=== PATIENT | male | born 1940 | race Caucasian/White ===

== ENCOUNTER → 2016-04-24 | Outpatient (CLI) | payer OTHER, MEDICARE | END | disposition home or self-care (01) | LOC: MW.MRI 11:45 | PROVIDERS: ATTEND Orthopaedic Surgery | DX: M17.11 Unilateral primary osteoarthritis, right knee (principal) | CPT/HCPCS: 73721-RT ==

== ENCOUNTER → 2016-05-08 | Outpatient (CLI) | payer OTHER, MEDICARE | LOC: MW.CHIM 16:14 | PROVIDERS: ATTEND Internal Medicine | DX: E11.9 Type 2 diabetes mellitus without complications (principal) | CPT/HCPCS: 36415; 83036 ==

== ENCOUNTER 2016-05-14 10:00 | Inpatient (IN) | payer OTHER, MEDICARE ==
[2016-07-09] MEDS ORDERED: Ketorolac 15 MG/ML SDV IVPUSH SCH ×2 (06:00→15:00)
[2016-07-09] MEDS ORDERED: Scopolamine 1.5 MG Transdermal Patch TRDERM SCH (06:00)
[2016-07-09] MEDS ORDERED: Famotidine 20 MG/2 ML SDV IVPUSH SCH (06:00)
[2016-07-09] MEDS ORDERED: oxyCODONE ER 10 MG TAB.ER PO SCH (06:00)
[2016-07-09] MEDS ORDERED: Lactated Ringers 1,000 ML IV SCH (06:00)
[2016-07-09] MEDS ORDERED: Acetaminophen 1,000 MG in Premix Bag 1 BAG IV SCH (06:00)
[2016-07-09] MEDS ORDERED: Lidocaine 1% 50 ML MDV ONE (06:48)
--- NOTE | 2016-07-09 06:59 | PCM.PREANE ---
Preanesthetic Assessment - Anesthesia/Transfusion/Family Hx Anesthesia History: Prior Anesthesia Without Reaction Family History of Anesthesia Reaction: No Transfusion History: No Prior Transfusion(s) Intubation History: Unknown - Review of Systems General: No Symptoms Pulmonary: No Symptoms Cardiovascular: No Symptoms Gastrointestinal: No symptoms Neurological: No Symptoms Other: Reports: None - Physical Assessment Height: 1.78 m Weight: 139.253 kg ASA Class: 3 Mental Status: Alert & Oriented x3 Airway Class: Mallampati = 3 Dentition: Reports: Dentures (upper), [place](s) (multiple lower) Thyro-Mental Finger Breadths: 2 Mouth Opening Finger Breadths: 3 ROM/Head Extension: Limited/Partial Lungs: Clear to auscultation, Normal respiratory effort Cardiovascular: Regular Rate, Regular Rhythm - Allergies Allergies/Adverse Reactions: Allergies Allergy/AdvReac Type Severity Reaction Status Date / Time morphine Allergy Itching Verified 12/09/14 14:08 - Blood Blood Available: No - Anesthesia Plan Pre-Op Medication Ordered: None - Acknowledgements Anesthesia Type Planned: Spinal (general anesthesia back-up) Pt an Appropriate Candidate for the Planned Anesthesia: Yes Alternatives and Risks of Anesthesia Discussed w Pt/Guardian: Yes Pt/Guardian Understands and Agrees with Anesthesia Plan: Yes PreAnesthesia Questionnaire HEENT History: Reports: Hard of hearing, Impaired vision Other HEENT History: wears glasses, top denture, annalisa hearing aids Cardiovascular History: Reports: Afib, High cholesterol, Hypertension Gastrointestinal History: Reports: Other (see below) Other Gastrointestinal History: occasional heartburn Genitourinary History: Reports: Renal calculus Other Genitourinary History: hx kidney stones Musculoskeletal History: Reports: Arthritis Endocrine/Metabolic History: Reports: Diabetes, type II, Obesity/BMI 30+ (BMI 44 ) - Past Surgical History Head Surgeries/Procedures: Reports: None HEENT Surgical History: Reports: Tonsillectomy GI Surgical History: Reports: Appendectomy Musculoskeletal Surgical History: Reports: Arthroscopic knee - SUBSTANCE USE Smoking Status *Q: Former Smoker (quit '02) Tobacco Use Within Last Twelve Months: No Recreational Drug Use History: No - HOME MEDS Home Medications: Home Meds Aspirin [[place] Aspirin] 81 mg PO DAILY 07/05/16 [History] Diclofenac Sodium [Voltaren] 75 mg PO ASDIRECTED 07/05/16 [History] Furosemide 80 mg PO BID 07/05/16 [History] Glimepiride [Amaryl] 2 mg PO DAILY 07/05/16 [History] Insulin Detemir [Levemir Flextouch] 40 units SUBCUT BEDTIME 07/05/16 [History] Insulin Lispro [Humalog Kwikpen U-100] 1 injection SUBCUT ASDIRECTED PRN [History] Losartan Potassium 100 mg PO DAILY 07/05/16 [History] Oxybutynin Chloride 5 mg PO DAILY 07/05/16 [History] Potassium Chloride 20 meq PO DAILY 07/05/16 [History] metFORMIN HCl [Metformin HCl] 1,000 mg PO BID 07/05/16 [History] traMADol HCl [Tramadol HCl] 50 mg PO ASDIRECTED PRN 07/05/16 [History] - CURRENT (IN HOUSE) MEDS Current Meds: Current Medications Famotidine (Pepcid) 40 mg IVPUSH ONARRIVE BLANCA Stop: 07/09/16 12:01 Acetaminophen 1,000 mg/ Premix 100 mls @ 400 mls/hr IV ONARRIVE BLANCA Stop: 07/09/16 12:01 Ropivacaine 49.25 ml/Ketorolac Tromethamine 30 mg/Epinephrine HCl 0.5 mg/ Clonidine HCl 80 mcg/ Sodium Chloride 100 mls @ 50 mls/min INJECT ASDIRECTED BLANCA Stop: 07/09/16 12:01 Lactated Ringer's (Ringers, Lactated) 1,000 mls @ 100 mls/hr IV ASDIRECTED [facility] Tranexamic Acid 4,000 mg/ (Sodium Chloride) 140 mls @ 600 mls/hr IV ASDIRECTED BLANCA Stop: 07/09/16 12:01 Cefazolin Sodium/Dextrose 2 gm (/ Premix) 50 mls @ 100 mls/hr IV ONCALL BLANCA Stop: 07/09/16 12:01 Ketorolac Tromethamine (Toradol) 15 mg IVPUSH ONARRIVE BLANCA Oxycodone HCl (Oxycontin) 10 mg PO ONARRIVE BLANCA Stop: 07/09/16 12:01 Scopolamine (Transderm-Scop) 1.5 mg TRDERM ONARRIVE [facility] Discontinued Medications Lidocaine HCl (Xylocaine 1%) Confirm Administered Dose 50 ml .ROUTE .STK-MED ONE Stop: 07/09/16 06:49
[2016-07-09] MEDS ORDERED: Tranexamic Acid 4,000 MG in Sodium Chloride 0.9% 100 ML IV SCH (07:00)
[2016-07-09] MEDS ORDERED: Ropivacaine 49.25 ML, Ketorolac 30 MG, EPINEPHrine 0.5 MG, cloNIDine 80 MCG in Sodium C... INJECT SCH (07:00)
[2016-07-09] MEDS ORDERED: Propofol 200 MG/20 ML SDV ONE ×2 (07:14→07:18)
[2016-07-09] MEDS ORDERED: Midazolam 1 MG/ML 2 ML SDV ONE (07:14)
[2016-07-09] MEDS ORDERED: Lidocaine 2% 5 ML SDV ONE ×2 (07:14→07:18)
[2016-07-09] MEDS ORDERED: fentaNYL 100 MCG/2 ML SDV ONE ×2 (07:14→07:15)
[2016-07-09] MEDS ORDERED: Ondansetron 4 MG/2 ML SDV ONE (07:15)
[2016-07-09] MEDS ORDERED: ePHEDrine 50 MG/ML SDV ONE (07:15)
[2016-07-09] MEDS ORDERED: Dextrose 5% in Water 500 ML IV SCH (07:15)
[2016-07-09] MEDS ORDERED: Succinylcholine/Normal Saline 200 MG/10 ML Syringe ONE (07:16)
[2016-07-09] MEDS ORDERED: ceFAZolin 2 GM in Premix Bag 1 BAG IV SCH (08:00)
[2016-07-09] MEDS ORDERED: Phenylephrine 1% 10 MG/ML SDV ONE (08:52)
[2016-07-09] MEDS ORDERED: Bisacodyl 10 MG Supp RECTAL PRN (10:04)
[2016-07-09] MEDS ORDERED: Aluminum Hydroxide/Magnesium Hydroxide/Simethicone Susp 30 ML Cup PO PRN (10:04)
[2016-07-09] MEDS ORDERED: Ondansetron 4 MG/2 ML SDV IV PRN (10:04)
[2016-07-09] MEDS ORDERED: diphenhydrAMINE 25 MG Cap PO PRN (10:04)
--- NOTE | 2016-07-09 10:31 | PCM.OPNOTE ---
- General Post-Op/Procedure Note Date of Surgery/Procedure: 07/09/16 Operative Procedure(s): R TKA Post-Op Diagnosis: DJD R knee Anesthesia Technique: General ET tube, Spinal Primary Surgeon: Angelique Rankin Rest Room Matron: Arlin Pierre Rest Room Matron: Frida Hart EBL in mLs: 50 Condition: Good Free Text/Narrative:: tt=50 min #[id number]
--- NOTE | 2016-07-09 10:48 | PCM.POSTAN ---
POST ANESTHESIA ASSESSMENT - MENTAL STATUS Mental Status: alert, oriented - RESPIRATORY Respiratory Status: respiratory rate WNL, airway patent, O2 saturation stable - CARDIOVASCULAR CV Status: pulse rate WNL, blood pressure stable - GASTROINTESTINAL GI Status: no symptoms - POST OP HYDRATION Hydration Status: adequate & stable
[2016-07-09] MEDS: fentaNYL 100 MCG/2 ML SDV IVPUSH PRN ×2 (11:12→11:18)
--- NOTE | 2016-07-09 12:54 | CR ---
EXAMINATION: Right knee HISTORY: TKA COMPARISON: 04/24/2016 TECHNIQUE: 2 views FINDINGS/IMPRESSION: Right total knee hardware is demonstrated in good position and alignment. Posto perative soft tissue changes noted.
[2016-07-09] MEDS: Acetaminophen 500 MG Tab PO SCH ×2 (13:50→20:37)
--- NOTE | 2016-07-09 14:25 | PCM.CONS ---
H&P History of Present Illness - General Date of Service: 07/09/16 Admit Problem/Dx: Admission Diagnosis/Problem Admission Diagnosis/Problem Replacement of total knee joint Source of Information: Patient, Old records History Limitations: Reports: No limitations - History of Present Illness Initial Comments - Free Text/Narative: This 75 year old male with pmh of HTN, bilateral lower leg edema, afib, obesity presented to the hospital for R TKA with Dr Rankin today. Patient is now post-operative, awake and alert in room. During interview, HR noted to be tachy 120-150s and then would lower to 100s. Patient is visible dyspneic, complains of some palpitations. Denies chest pain. Complains of R knee pain as well as L knee pain. He is alert and oriented. PCP, Dr Fulton. - Related Data Allergies/Adverse Reactions: Allergies Allergy/AdvReac Type Severity Reaction Status Date / Time morphine Allergy Itching Verified 12/09/14 14:08 Home Medications: Home Meds Aspirin [[place] Aspirin] 81 mg PO DAILY 07/05/16 [History] Diclofenac Sodium [Voltaren] 75 mg PO ASDIRECTED 07/05/16 [History] Furosemide 80 mg PO BID 07/05/16 [History] Glimepiride [Amaryl] 2 mg PO DAILY 07/05/16 [History] Insulin Detemir [Levemir Flextouch] 40 units SUBCUT BEDTIME 07/05/16 [History] Insulin Lispro [Humalog Kwikpen U-100] 1 injection SUBCUT ASDIRECTED PRN [History] Losartan Potassium 100 mg PO DAILY 07/05/16 [History] Potassium Chloride 20 meq PO DAILY 07/05/16 [History] metFORMIN HCl [Metformin HCl] 1,000 mg PO BID 07/05/16 [History] traMADol HCl [Tramadol HCl] 50 mg PO ASDIRECTED PRN 07/05/16 [History] Oxybutynin [Oxybutynin ER] 5 mg PO BEDTIME 07/09/16 [History] Past Medical History HEENT History: Reports: Hard of hearing, Impaired vision Other HEENT History: wears glasses, top denture, annalisa hearing aids Cardiovascular History: Reports: Afib, High cholesterol, Hypertension Gastrointestinal History: Reports: Other (see below) Other Gastrointestinal History: occasional heartburn Genitourinary History: Reports: Renal calculus Other Genitourinary History: hx kidney stones Musculoskeletal History: Reports: Arthritis Endocrine/Metabolic History: Reports: Diabetes, type II, Obesity/BMI 30+ - Past Surgical History Head Surgeries/Procedures: Reports: None HEENT Surgical History: Reports: Tonsillectomy GI Surgical History: Reports: Appendectomy Musculoskeletal Surgical History: Reports: Arthroscopic knee Social & Family History - Tobacco Use Smoking Status *Q: Former Smoker (quit '02) Month Tobacco Last Used: quit 2001 - Caffeine Use Caffeine Use: Reports: Coffee - Alcohol Use Alcohol Use History: No - Recreational Drug Use Recreational Drug Use: No H&P Review of Systems - Review of Systems: Review Of Systems: See Below General: Reports: no symptoms. Denies: fever, chills, malaise HEENT: Reports: no symptoms. Denies: sinus congestion, sore throat, vertigo Pulmonary: Reports: Shortness of Breath. Denies: Wheezing, Pleuritic Chest Pain , Cough, Sputum Cardiovascular: Reports: palpitations, edema (BLE). Denies: chest pain Gastrointestinal: Reports: No symptoms. Denies: Abdominal pain, Black stool, Bloody stool Genitourinary: Reports: no symptoms. Denies: dysuria, frequency, burning Musculoskeletal: Reports: leg pain (R and L knee pain) Skin: Reports: no symptoms Psychiatric: Reports: no symptoms Neurological: Reports: No Symptoms Hematologic/Lymphatic: Reports: no symptoms Immunologic: Reports: no symptoms Exam - Exam Exam: See Below - Vital Signs Vital Signs: Last Vital Signs Temp 97.5 F 07/09/16 10:12 Pulse 102 H 07/09/16 11:23 Resp 15 07/09/16 11:23 BP 159/83 H 07/09/16 11:23 Pulse Ox 92 L 07/09/16 11:23 Weight: 139.253 kg - Exam Quality Assessment: supplemental oxygen, urinary catheter, DVT prophylaxis General: alert, oriented, cooperative HEENT: Conjunctiva clear, EACs clear, EOMI, Hearing intact, Mucosa moist & pink , Nares patent, Posterior pharynx clear Neck: supple, trachea midline. No: JVD Lungs: Clear to auscultation, Normal respiratory effort Cardiovascular: regular rhythm, normal S1, normal S2, tachycardia. No: systolic murmur Abdomen: normal bowel sounds, soft. No: organomegaly, guarding, rigidity, rebound, tenderness Extremities: normal inspection, normal pulses, edema (+1 edema bilateral lower legs) Skin: incision (C/D/I dressing) Neuro Extensive - Mental Status: alert, oriented x3 Psychiatric: alert, normal affect, normal mood - Patient Data Lab Results last 24 hrs: Laboratory Results - last 24 hr 07/09/16 07/09/16 07/09/16 Range/Units 07:15 07:21 10:53 POC Glucose 132 H 152 H (60-110) mg/dL Blood Type O POSITIVE Antibody Screen NEGATIVE Result Diagrams: 07/09/16 14:28 07/09/16 14:28 Consult PN Assessment/Plan Procedures: Procedures ASSAY OF IRON (02/21/15) CHEST X-RAY 2VW FRONTAL&LATL (04/30/16) COMPLETE CBC AUTOMATED (12/07/14) COMPLETE CBC W/AUTO DIFF WBC (06/25/16) COMPREHEN METABOLIC PANEL (06/25/16) ELECTROCARDIOGRAM TRACING (04/30/16) GLYCOSYLATED HEMOGLOBIN TEST (06/08/16) LIPID PANEL (04/30/16) MEDICAL NUTRITION INDIV IN (01/20/15) MRI JNT OF LWR EXTRE W/O DYE (04/24/16) OFFICE/OUTPATIENT VISIT EST (01/17/15) OFFICE/OUTPATIENT VISIT NEW (12/09/14) PROTHROMBIN TIME (06/25/16) ROUTINE VENIPUNCTURE (06/25/16) THROMBOPLASTIN TIME PARTIAL (06/25/16) TTE W/DOPPLER COMPLETE (12/31/14) URINALYSIS AUTO W/SCOPE (06/25/16) X-RAY EXAM KNEE 4 OR MORE (03/29/16) (1) S/P total knee arthroplasty SNOMED Code(s): 8324748704047, 514760708, 7494692637924 Code(s): Z96.659 - PRESENCE OF UNSPECIFIED ARTIFICIAL KNEE JOINT Current Visit: Yes Qualifiers: Laterality: right Qualified Code(s): Z96.651 - Presence of right artificial knee joint (2) HTN (hypertension) SNOMED Code(s): 73300642 Code(s): I10 - ESSENTIAL (PRIMARY) HYPERTENSION Current Visit: Yes Qualifiers: Hypertension type: essential hypertension Qualified Code(s): I10 - Essential (primary) hypertension (3) A-fib SNOMED Code(s): 79506672 Code(s): I48.91 - UNSPECIFIED ATRIAL FIBRILLATION Current Visit: Yes (4) DM type 2 (diabetes mellitus, type 2) SNOMED Code(s): 74601351 Code(s): E11.9 - TYPE 2 DIABETES MELLITUS WITHOUT COMPLICATIONS Current Visit: Yes Qualifiers: Diabetes mellitus complication status: without complication Diabetes mellitus sap hana developer insulin use: with fci use Qualified Code(s): E11.9 - Type 2 diabetes mellitus without complications; Z79.4 - snf (current) use of insulin (5) Morbid obesity with BMI of 40.0-44.9, adult SNOMED Code(s): 498764291 Code(s): E66.01 - MORBID (SEVERE) OBESITY DUE TO EXCESS CALORIES; Z68.41 - BODY MASS INDEX (BMI) 40.0-44.9, ADULT Current Visit: Yes Problem List Initiated/Reviewed/Updated: Yes My Orders last 24 hours: My Active Orders 07/09/16 13:55 CBC WITH AUTO DIFF [HEME] Routine COMPREHENSIVE METABOLIC PN,CMP [CHEM] Routine MAGNESIUM [CHEM] Routine 07/09/16 14:06 EKG 12 Lead [EKG Documentation Completion] [RC] STAT 07/09/16 14:07 Telemetry Monitoring [Cardiac Monitoring] [RC] . DIRECTED 07/09/16 14:08 EKG 12 Lead [EKG Documentation Completion] [RC] STAT 07/09/16 14:17 Chest 1V Frontal [CR] Urgent 07/09/16 21:00 Furosemide [Lasix] 80 mg PO BID Insulin Detemir [Levemir] 40 unit SUBCUT BEDTIME Oxybutynin 5 mg PO BEDTIME 07/10/16 09:00 Losartan [Cozaar] 100 mg PO DAILY Potassium Chloride [Klor-Con M20] 20 meq PO DAILY Plan: This 75 year old male admitted with R TKA, hospitalist service consulted for medical management of DM, HTN, and Afib 1. S/P R TKA: Per Ortho. 2. HTN: Obtained BMP, K+ 5.4, BUN 25 and Cr 1.5. Mg 1.8. No peaked Ts on EKG. Baseline Cr 1.5. Continue Losartan and Lasix 80 mg BID. Did discontinue Toradol and Celebrex due to renal function and cardiac risk profile. 3. DM type 2: Hold oral agents, may restart upon discharge home. Will Continue Levemir. Novolog SSI with meals. A1c 7.4 preoperatively. 4. Afib: Tachycardia noted on assessment, EKG revealed ST prolonged OK, no change from pre-operative EKG. CXR revealed small L pleural effusion, will continue Lasix as stated above and stop IVFs. Will place telemetry to monitor. VTE prophylaxis: Per Ortho when deemed appropriate, ASA BID ordered per Ortho.
--- NOTE | 2016-07-09 14:52 | CR ---
EXAMINATION: Portable chest radiograph. HISTORY: Tachycardia. FINDINGS: The trachea is midline. The cardiomediastinal silhouette is within normal limits no focal consolidat ion. Possible trace left pleural effusion. No pneumothorax. Osseous structures appear unremarkable. IMPRESSION: Possible trace left pleural effusion.
[2016-07-09] MEDS: HYDROmorphone 2 MG/ML Syringe IVPUSH PRN (15:40)
[2016-07-09] MEDS: oxyCODONE 5 MG Tab PO PRN (16:57)
[2016-07-09] MEDS: ceFAZolin 2 GM in Premix Bag 1 BAG IV SCH ×2 (16:58→21:13)
[2016-07-09] MEDS: Insulin Aspart 100 Units/ML 3 ML Pen SUBCUT SCH (17:30)
--- NOTE | 2016-07-09 20:25 | OR ---
SURGEON: Angelique Rankin MD DATE OF PROCEDURE: 07/09/2016 PREOPERATIVE DIAGNOSIS: Degenerative joint disease, right knee, tricompartmental. POSTOPERATIVE DIAGNOSIS: Degenerative joint disease, right knee, tricompartmental. PROCEDURE: Right total knee arthroplasty using patient specific instrumentation. ASSISTANTS: Arlin Pierre PA-C and Frida Hart PA-C. ANESTHESIA: Spinal with general. ESTIMATED BLOOD LOSS: 50 mL. TOURNIQUET TIME: 50 minutes. COMPLICATIONS: None. DVT PROPHYLAXIS: PAS boot and PATI hose to the nonoperative leg. IMPLANTS USED: Danilo NexGen femoral component size G (LPS), tibial component size 7, 14 mm all- polyethylene articular surface, and 38 mm all-polyethylene patella. INTRAOPERATIVE FINDINGS: Showed severe tricompartmental degenerative changes with mild varus deformity. No significant synovitis was noted. 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 1 g of tranexamic acid was given at the start of the case. This was given IV. An additional gram was given IV upon deflation of the tourniquet. We did apply 1 g of tranexamic acid topically into the wound as the cement was allowed to harden. BRIEF HISTORY: [place] is a 75-year-old male, who has had complaint of progressive bilateral knee pain. He has tried conservative treatment, which has not been helpful. He states that his right is most symptomatic. Due to his lack of response to conservative treatment, I did recommend surgical intervention. The risks and goals of procedure were discussed with the patient and were documented preoperatively. He agreed to proceed. DESCRIPTION OF PROCEDURE: The patient was properly identified and brought to the operating room. The patient was transferred from the operating room cart and placed on the operating room table. Spinal anesthesia was administered by the anesthesia team. After adequate sedation was achieved, a well-padded tourniquet was applied to the lower extremity. A De La Cruz catheter was then placed. The lower extremity was then prepped in standard fashion using ChloraPrep solution. It was then sterilely draped. A time-out was performed to ensure correct site and procedure. Preoperative antibiotics were given. The surgical site had been marked preoperatively. An Esmarch was used to exsanguinate the lower extremity and the tourniquet was inflated. An incision was made centered over the anterior aspect of the knee. The subcutaneous tissues were dissected down to the level of the fascia. A medial parapatellar approach was made. A partial medial release was also performed. The knee was then brought into extension and a portion of the infrapatellar fat pad was excised. The knee was then brought into flexion. The femoral patient specific cutting block was placed. This fit anatomically. The pins were then placed. The 0 degree distal femoral cutting guide was placed over the distal femur pins. The femur was then resected using an oscillating saw. The pins were then removed and were placed into the previously placed distal drill holes in the femoral condyles. Both Monika's and the epicondylar axis were marked with electric cautery. The cutting block was then placed. This was pinned into position in a slightly lateral and externally rotated position. This was then secured. The resection guide was used to check to make sure that the anterior femoral cortex would not be notched. The anterior condylar cut was then made. No notching of the femur was noted. This was followed by the posterior condylar, posterior chamfer, and anterior chamfer cuts. The narrow reciprocating saw was then used to cut the base of the trochlear recess and score the edges. The finishing guide was then removed and the trochlear recess cuts and remaining bone cuts were finished. The notch cutting block was then placed into position and the notch cut was made without difficulty using the reciprocating saw. This was then removed. The notch block that had been cut along with a portion of the cruciate ligaments were also resected. We then turned our attention to the tibia. The posterior cruciate ligament retractor was used to bring the tibial surface anteriorly. The patient specific tibial block was then placed. This fit anatomically. It was pinned into position. The block was then removed. The 0 degree proximal tibia cutting guide was then placed over the guide pin. This was secured with a Wilber clamp. The resection depth was checked using the resection guide. A proximal tibia cut was then made using an oscillating saw. Care was taken to protect the patellar tendon. The proximal tibia bone was then removed. The remainder of the medial and lateral meniscus were also excised. Care was taken to protect the popliteus tendon. The proximal tibia was then sized. The remainder of the osteophytes along the proximal tibia were also resected. The distal femur was elevated to expose the posterior knee. The posterior capsule was stripped off of the distal femur using a curved osteotome. The posterior osteophytes were also excised. The posterior capsule, along with the medial and lateral gutters, were then injected with the standard, preoperatively prepared, mixture consisting of clonidine, epinephrine, morphine, ropivacaine, Toradol, and saline, unless any allergies were noted preoperatively. The femoral trial was then placed. This was followed by the tibial component with a size 10 trial polyethylene. The knee was brought into full extension. Stability to varus and valgus stress was checked in extension and in flexion. There appeared to be good range of motion and stability. The knee was then brought into full extension. The patella was everted. The patella was resected to a thickness of 15 millimeters. It was then sized. Once the appropriate size was determined, the patella was prepared by placing the patella button in a slightly superior and medial position. The patella button trial was then placed and the knee was again taken through a range of motion. There was excellent patellar tracking using the no-touch technique. Alignment was checked with a drop steve. The trial components were then removed. The knee was brought into full flexion and the tibia was prepared in a standard fashion placing the tibial plate in slight external rotation with the center of the prosthesis lined up with the medial aspect of the tibial tubercle. The wound was then copiously irrigated with Pulsavac solution to remove any bony debris. The bone ends were then suctioned dry. Cement was prepared in the usual fashion on the back table. The cement was then placed onto the proximal tibia and the tibial component was placed without difficulty. This was malleted into position. Excess cement was cleared. The femoral component was cemented in a similar manner. A trial polyethylene was then placed and the knee was brought into full extension. An axial load was applied. The patella button was then cemented into place and a patella clamp was placed to hold pressure. The cement was allowed to cure. After the cement had adequately hardened, the patella clamp was released. The knee was again taken through a range of motion. It was determined at this time the correct thickness of polyethylene. The trial polyethylene insert was then removed. The knee was brought into flexion and the tibial tray was suctioned dry. Any excess cement was cleared from the tibial and femoral components. The knee was then brought into approximately 45 degrees of flexion. The tourniquet was deflated. No excess bleeding was noted from the posterior aspect of the knee. The previously determined sized polyethylene insert was then placed and locked into position without difficulty. The knee was again taken through a range of motion with no change in stability, either in flexion or extension. The wound was again copiously irrigated with the Pulsavac solution. The fascia layer was closed with No. 1 Vicryl. The subcutaneous tissue was closed with 2-0 Vicryl and the skin was closed with a yesica. Xeroform gauze was placed over the wound and a bulky dressing was applied. The patient was then awakened from the anesthetic and transferred back to the operating cart. The patient was brought to recovery room in stable condition. All needle and sponge counts were correct. ALIZA / CESAR /[id number]
[2016-07-09] MEDS: Oxybutynin 5 MG Tab PO SCH (20:38)
[2016-07-09] MEDS: Docusate Sodium 100 MG Cap PO SCH (20:38)
[2016-07-09] MEDS: oxyCODONE ER 10 MG TAB.ER PO SCH (20:38)
[2016-07-09] MEDS ORDERED: Furosemide 80 MG Tab PO SCH (21:00)
[2016-07-09] MEDS: Insulin Detemir 100 Units/ML 3 ML Pen SUBCUT SCH (21:14)
[2016-07-10] MEDS ORDERED: ceFAZolin 2 GM in Premix Bag 1 BAG IV SCH (03:00)
[2016-07-10] MEDS: HYDROmorphone 2 MG/ML Syringe IVPUSH PRN ×2 (05:54→11:28)
[2016-07-10] MEDS: Acetaminophen 500 MG Tab PO SCH ×4 (05:59→20:10)
[2016-07-10] MEDS: Insulin Aspart 100 Units/ML 3 ML Pen SUBCUT SCH ×3 (06:30→16:47)
--- NOTE | 2016-07-10 07:55 | PCM.SURGPN ---
- General Info Date of Service: 07/10/16 Date of Surgery/Procedure: 07/09/16 POD#: 1 Functional Status: Reports: pain controlled, tolerating diet, ambulating, urinating - Review of Systems General: Reports: No Symptoms Pulmonary: Reports: no symptoms Cardiovascular: Reports: No Symptoms Gastrointestinal: Reports: No symptoms Genitourinary: Reports: no symptoms Musculoskeletal: Reports: leg pain, joint pain, joint swelling Neurological: Reports: No Symptoms Psychiatric: Reports: no symptoms - Patient Data Vitals - most recent: Last Vital Signs Temp 36.9 C 07/10/16 07:16 Pulse 61 07/10/16 07:16 Resp 20 07/10/16 07:16 BP 121/77 07/10/16 07:16 Pulse Ox 100 07/10/16 07:16 Weight - most recent: 139.253 kg I&O - last 24 hours: Intake & Output 07/09/16 07/10/16 07/10/16 22:59 06:59 14:59 Intake Total 1100 Output Total 200 Balance 900 Lab Results last 24 hrs: Laboratory Results - last 24 hr 07/09/16 07/09/16 07/09/16 Range/Units 07:15 07:21 10:53 WBC (4.0-11.0) K/uL RBC (4.50-5.90) M/uL Hgb (13.0-17.0) g/dL Hct (38.0-50.0) % MCV (80.0-98.0) fL MCH (27.0-32.0) pg MCHC (31.0-37.0) g/dL RDW Std Deviation (28.0-62.0) fl RDW Coeff of [place] (11.0-15.0) % Plt Count (150-400) K/uL MPV (7.40-12.00) fL Neut % (Auto) (48.0-80.0) % Lymph % (Auto) (16.0-40.0) % [place] % (Auto) (0.0-15.0) % Eos % (Auto) (0.0-7.0) % Baso % (Auto) (0.0-1.5) % Neut # (Auto) (1.4-5.7) K/uL Lymph # (Auto) (0.6-2.4) K/uL [place] # (Auto) (0.0-0.8) K/uL Eos # (Auto) (0.0-0.7) K/uL Baso # (Auto) (0.0-0.1) K/uL Nucleated RBC % /100WBC Nucleated RBCs # K/uL Sodium (136-146) mmol/L Potassium (3.5-5.1) mmol/L Chloride (98-110) mmol/L Carbon Dioxide (21-31) mmol/L BUN (6.0-23.0) mg/dL Creatinine (0.6-1.5) mg/dL Est Cr Clr Drug Dosing mL/min Estimated GFR (MDRD) ml/min Glucose (60-110) mg/dL POC Glucose 132 H 152 H (60-110) mg/dL Calcium (8.8-10.8) mg/dL Magnesium (1.5-2.3) mEq/L Total Bilirubin (0.1-1.5) mg/dL AST (5-40) IU/L ALT (8-54) IU/L Alkaline Phosphatase (40-150) Total Protein (6.0-8.0) g/dL Albumin (3.4-4.8) g/dL Globulin (2.0-3.5) g/dL Albumin/Globulin Ratio (1.3-2.8) Blood Type O POSITIVE Antibody Screen NEGATIVE 07/09/16 07/09/16 07/09/16 Range/Units 14:28 14:28 16:37 WBC 12.47 H (4.0-11.0) K/uL RBC 4.31 L (4.50-5.90) M/uL Hgb 12.6 L (13.0-17.0) g/dL Hct 41.1 (38.0-50.0) % MCV 95.4 (80.0-98.0) fL MCH 29.2 (27.0-32.0) pg MCHC 30.7 L (31.0-37.0) g/dL RDW Std Deviation 55.9 (28.0-62.0) fl RDW Coeff of [place] 16 H (11.0-15.0) % Plt Count 164 (150-400) K/uL MPV 9.80 (7.40-12.00) fL Neut % (Auto) 79.4 (48.0-80.0) % Lymph % (Auto) 11.5 L (16.0-40.0) % [place] % (Auto) 7.9 (0.0-15.0) % Eos % (Auto) 1.0 (0.0-7.0) % Baso % (Auto) 0.2 (0.0-1.5) % Neut # (Auto) 9.9 H (1.4-5.7) K/uL Lymph # (Auto) 1.4 (0.6-2.4) K/uL [place] # (Auto) 1.0 H (0.0-0.8) K/uL Eos # (Auto) 0.1 (0.0-0.7) K/uL Baso # (Auto) 0.0 (0.0-0.1) K/uL Nucleated RBC % 0.0 /100WBC Nucleated RBCs # 0 K/uL Sodium 142 (136-146) mmol/L Potassium 5.4 H (3.5-5.1) mmol/L Chloride 110 (98-110) mmol/L Carbon Dioxide 25 (21-31) mmol/L BUN 25 H (6.0-23.0) mg/dL Creatinine 1.5 (0.6-1.5) mg/dL Est Cr Clr Drug Dosing 43.26 mL/min Estimated GFR (MDRD) 45.5 ml/min Glucose 167 H (60-110) mg/dL POC Glucose 133 H (60-110) mg/dL Calcium 8.5 L (8.8-10.8) mg/dL Magnesium 1.8 (1.5-2.3) mEq/L Total Bilirubin 0.5 (0.1-1.5) mg/dL AST 16 (5-40) IU/L ALT 15 (8-54) IU/L Alkaline Phosphatase 69 (40-150) Total Protein 5.7 L (6.0-8.0) g/dL Albumin 3.2 L (3.4-4.8) g/dL Globulin 2.5 (2.0-3.5) g/dL Albumin/Globulin Ratio 1.3 (1.3-2.8) Blood Type Antibody Screen 07/09/16 07/10/1607/10/17 Range/Units 20:44 06:23 06:42 WBC (4.0-11.0) K/uL RBC (4.50-5.90) M/uL Hgb (13.0-17.0) g/dL Hct (38.0-50.0) % MCV (80.0-98.0) fL MCH (27.0-32.0) pg MCHC (31.0-37.0) g/dL RDW Std Deviation (28.0-62.0) fl RDW Coeff of [place] (11.0-15.0) % Plt Count (150-400) K/uL MPV (7.40-12.00) fL Neut % (Auto) (48.0-80.0) % Lymph % (Auto) (16.0-40.0) % [place] % (Auto) (0.0-15.0) % Eos % (Auto) (0.0-7.0) % Baso % (Auto) (0.0-1.5) % Neut # (Auto) (1.4-5.7) K/uL Lymph # (Auto) (0.6-2.4) K/uL [place] # (Auto) (0.0-0.8) K/uL Eos # (Auto) (0.0-0.7) K/uL Baso # (Auto) (0.0-0.1) K/uL Nucleated RBC % /100WBC Nucleated RBCs # K/uL Sodium 140 (136-146) mmol/L Potassium 5.6 H (3.5-5.1) mmol/L Chloride 106 (98-110) mmol/L Carbon Dioxide 24 (21-31) mmol/L BUN 29 H (6.0-23.0) mg/dL Creatinine 1.9 H (0.6-1.5) mg/dL Est Cr Clr Drug Dosing 34.24 mL/min Estimated GFR (MDRD) 34.6 ml/min Glucose 151 H (60-110) mg/dL POC Glucose 132 H 135 H (60-110) mg/dL Calcium 8.2 L (8.8-10.8) mg/dL Magnesium 2.0 (1.5-2.3) mEq/L Total Bilirubin (0.1-1.5) mg/dL AST (5-40) IU/L ALT (8-54) IU/L Alkaline Phosphatase (40-150) Total Protein (6.0-8.0) g/dL Albumin (3.4-4.8) g/dL Globulin (2.0-3.5) g/dL Albumin/Globulin Ratio (1.3-2.8) Blood Type Antibody Screen Med Orders - Current: Current Medications Acetaminophen (Tylenol Extra Strength) 1,000 mg PO Q6H [facility] Last Admin: 07/10/16 05:59 Dose: Not Given Al Hydroxide/Mg Hydroxide (Mag-Al Plus) 30 ml PO Q4H PRN PRN Reason: indigestion Aspirin (Aspirin) 325 mg PO BID [facility] Bisacodyl (Dulcolax) 10 mg RECTAL DAILY PRN PRN Reason: Constipation Diphenhydramine HCl (Benadryl) 25 - 50 mg PO Q6H PRN PRN Reason: Itching Docusate Sodium (Colace) 100 mg PO BID [facility] Last Admin: 07/09/16 20:38 Dose: 100 mg Furosemide (Lasix) 80 mg PO BID [facility] Last Admin: 07/09/16 20:38 Dose: 80 mg Hydromorphone HCl (Dilaudid) 0.5 - 1 mg IVPUSH Q3H PRN PRN Reason: Pain Last Admin: 07/10/16 05:54 Dose: 1 mg Dextrose/Water (Dextrose 5% In Water) 500 mls @ 75 mls/hr IV ASDIRECTED [facility] Last Admin: 07/09/16 07:26 Dose: 75 mls/hr Insulin Aspart (Novolog) 0 unit SUBCUT TIDAC [facility] PRN Reason: Protocol Last Admin: 07/10/16 06:30 Dose: Not Given Insulin Detemir (Levemir) 40 unit SUBCUT BEDTIME [facility] Last Admin: 07/09/16 21:14 Dose: 40 units Losartan Potassium (Cozaar) 100 mg PO DAILY [facility] Ondansetron HCl (Zofran) 4 mg IV Q6HR PRN PRN Reason: NAUSEA/VOMITING Oxybutynin Chloride (Oxybutynin) 5 mg PO BEDTIME [facility] Last Admin: 07/09/16 20:38 Dose: 5 mg Oxycodone HCl (Oxycodone) 5 - 10 mg PO Q4H PRN PRN Reason: Pain Last Admin: 07/09/16 16:57 Dose: 10 mg Oxycodone HCl (Oxycontin) 10 mg PO Q12HR [facility] Last Admin: 07/09/16 20:38 Dose: 10 mg Scopolamine (Transderm-Scop) 1.5 mg TRDERM ONARRIVE [facility] Last Admin: 07/09/16 07:27 Dose: 1.5 mg Discontinued Medications Celecoxib (Celebrex) 200 mg PO DAILY [facility] Ephedrine Sulfate (Ephedrine Sulfate) Confirm Administered Dose 100 mg .ROUTE .STK-MED ONE Stop: 07/09/16 07:16 Famotidine (Pepcid) 40 mg IVPUSH ONARRIVE [facility] Stop: 07/09/16 12:01 Last Admin: 07/09/16 07:28 Dose: 40 mg Fentanyl (Sublimaze) Confirm Administered Dose 100 mcg .ROUTE .STK-MED ONE Stop: 07/09/16 07:15 Fentanyl (Sublimaze) Confirm Administered Dose 100 mcg .ROUTE .STK-MED ONE Stop: 07/09/16 07:16 Fentanyl (Sublimaze) 50 mcg IVPUSH Q5M PRN PRN Reason: Pain (severe 7-10) Stop: 07/10/16 09:42 Last Admin: 07/09/16 11:18 Dose: 50 mcg Acetaminophen 1,000 mg/ Premix 100 mls @ 400 mls/hr IV ONARRIVE [facility] Stop: 07/09/16 12:01 Ropivacaine 49.25 ml/Ketorolac Tromethamine 30 mg/Epinephrine HCl 0.5 mg/ Clonidine HCl 80 mcg/ Sodium Chloride 100 mls @ 50 mls/min INJECT ASDIRECTED [facility] Stop: 07/09/16 12:01 Lactated Ringer's (Ringers, Lactated) 1,000 mls @ 100 mls/hr IV ASDIRECTED [facility] Last Admin: 07/09/16 07:25 Dose: 100 mls/hr Tranexamic Acid 4,000 mg/ (Sodium Chloride) 140 mls @ 600 mls/hr IV ASDIRECTED [facility] Stop: 07/09/16 12:01 Cefazolin Sodium/Dextrose 2 gm (/ Premix) 50 mls @ 100 mls/hr IV ONCALL [facility] Stop: 07/09/16 12:01 Acetaminophen (Ofirmev) 1,000 mls @ 4,000 mls/hr IV ONARRIVE [facility] Stop: 07/09/16 12:01 Last Admin: 07/09/16 07:27 Dose: 4,000 mls/hr Cefazolin Sodium/Dextrose 2 gm (/ Premix) 50 mls @ 100 mls/hr IV Q8HR [facility] Stop: 07/09/16 22:29 Last Infusion: 07/09/16 17:28 Dose: Infused Cefazolin Sodium/Dextrose 2 gm (/ Premix) 50 mls @ 100 mls/hr IV Q8HR [facility] Stop: 07/10/16 03:29 Last Admin: 07/10/16 05:49 Dose: Not Given Ketorolac Tromethamine (Toradol) 15 mg IVPUSH ONARRIVE [facility] Last Admin: 07/09/16 07:28 Dose: 15 mg Ketorolac Tromethamine (Toradol) 15 mg IVPUSH Q6H [facility] Stop: 07/10/16 03:01 Lidocaine (Xylocaine-Mpf 2%) Confirm Administered Dose 10 ml .ROUTE .STK-MED ONE Stop: 07/09/16 07:15 Lidocaine (Xylocaine-Mpf 2%) Confirm Administered Dose 5 ml .ROUTE .STK-MED ONE Stop: 07/09/16 07:19 Lidocaine HCl (Xylocaine 1%) Confirm Administered Dose 50 ml .ROUTE .STK-MED ONE Stop: 07/09/16 06:49 Midazolam HCl (Versed 1 Mg/Ml) Confirm Administered Dose 2 mg .ROUTE .STK-MED ONE Stop: 07/09/16 07:15 Ondansetron HCl (Zofran) Confirm Administered Dose 4 mg .ROUTE .STK-MED ONE Stop: 07/09/16 07:16 Oxycodone HCl (Oxycontin) 10 mg PO ONARRIVE [facility] Stop: 07/09/16 12:01 Last Admin: 07/09/16 07:27 Dose: 10 mg Phenylephrine HCl (Alexis-Synephrine) Confirm Administered Dose 10 mg .ROUTE .STK- MED ONE Stop: 07/09/16 08:53 Potassium Chloride (Klor-Con M20) 20 meq PO DAILY [facility] Propofol (Diprivan 20 Ml) Confirm Administered Dose 400 mg .ROUTE .STK-MED ONE Stop: 07/09/16 07:15 Propofol (Diprivan 20 Ml) Confirm Administered Dose 200 mg .ROUTE .STK-MED ONE Stop: 07/09/16 07:19 Succinylcholine Chloride (Succinylcholine In Ns Pf) Confirm Administered Dose 200 mg .ROUTE .STK-MED ONE Stop: 07/09/16 07:17 Tranexamic Acid (Cyklokapron) Confirm Administered Dose 4,000 mg .ROUTE .STK- MED ONE Stop: 07/09/16 07:12 - Exam Wound/Incisions: dressing dry and intact General: alert, oriented HEENT: Pupils equal, Pupils reactive Neck: supple Lungs: Normal respiratory effort Cardiovascular: Regular Rate Extremities: other (RLE gastroc, anterior tibialis and EHL strength 5/5. Sensation intact distally. 2+ pitting edema. ) Neurological: no new focal deficit Psy/Mental Status: alert, normal affect, normal mood - Problem List Review Problem List Initiated/Reviewed/Updated: Yes - My Orders Last 24 Hours: Active Orders 24 hr Category Date Time Status Patient Status [ADT] Routine ADT 07/09/16 10:29 Active Transfer Patient (Change bed) [ADT] Routine ADT 07/09/16 10:29 Ordered Activity as Tolerated [RC] .Routine Care 07/09/16 10:04 Active Insert Urinary Catheter [OM.PC] Routine Care 07/09/16 08:00 Ordered Intake and Output [RC] Q12H Care 07/09/16 10:03 Active Neurovascular Check [RC] Q2HR Care 07/09/16 10:03 Active Notify Provider Vital Signs [RC] ASDIRECTED Care 07/09/16 10:04 Active RT Incentive Spirometry [RC] ASDIRECTED Care 07/09/16 10:03 Active Telemetry Monitoring [Cardiac Monitoring] [RC] Q8H Care 07/09/16 14:07 Active Urinary Catheter Assessment [RC] Q4H Care 07/09/16 08:00 Active Consult to Physician [CONS] Routine Cons 07/09/16 10:03 Active PT Evaluation and Treatment [CONS] Routine Cons 07/09/16 10:03 Active BASIC METABOLIC PANEL,BMP [CHEM] DAILY Lab 07/11/16 05:00 Ordered BASIC METABOLIC PANEL,BMP [CHEM] DAILY Lab 07/12/16 05:00 Ordered HEMOGLOBIN/HEMATOCRIT,HH [HEME] DAILY Lab 07/10/16 07:00 Ordered HEMOGLOBIN/HEMATOCRIT,HH [HEME] DAILY Lab 07/11/16 07:00 Ordered HEMOGLOBIN/HEMATOCRIT,HH [HEME] DAILY Lab 07/12/16 07:00 Ordered MAGNESIUM [CHEM] DAILY Lab 07/11/16 05:00 Ordered MAGNESIUM [CHEM] DAILY Lab 07/12/16 05:00 Ordered Acetaminophen [Tylenol Extra Strength] Med 07/09/16 14:00 Active 1,000 mg PO Q6H Alum Hydrox/Mag Hydrox/Simeth [Mag-Al Plus] Med 07/09/16 10:04 Active 30 ml PO Q4H PRN Aspirin Med 07/10/16 09:00 Active 325 mg PO BID Bisacodyl [Dulcolax] Med 07/09/16 10:04 Active 10 mg RECTAL DAILY PRN Dextrose 5% in Water 500 ml Med 07/09/16 07:15 Active IV ASDIRECTED Docusate Sodium [Colace] Med 07/09/16 21:00 Active 100 mg PO BID Furosemide [Lasix] Med 07/09/16 21:00 Active 80 mg PO BID HYDROmorphone [Dilaudid] Med 07/09/16 10:05 Active 0.5 - 1 mg IVPUSH Q3H PRN Insulin Aspart [NovoLOG] Med 07/09/16 17:00 Active See Protocol SUBCUT TIDAC Insulin Detemir [Levemir] Med 07/09/16 21:00 Active 40 unit SUBCUT BEDTIME Losartan [Cozaar] Med 07/10/16 09:00 Active 100 mg PO DAILY Ondansetron [Zofran] Med 07/09/16 10:04 Active 4 mg IV Q6HR PRN Oxybutynin Med 07/09/16 21:00 Active 5 mg PO BEDTIME diphenhydrAMINE [Benadryl] Med 07/09/16 10:04 Active 25 - 50 mg PO Q6H PRN oxyCODONE Med 07/09/16 10:05 Active 5 - 10 mg PO Q4H PRN oxyCODONE ER [OxyCONTIN] Med 07/09/16 21:00 Active 10 mg PO Q12HR Ice Therapy [OM.PC] Routine Oth 07/09/16 10:03 Ordered Medication Orders Acetaminophen (Tylenol Extra Strength) 1,000 mg PO Q6H [facility] Last Admin: 07/10/16 05:59 Dose: Admin: 07/09/16 20:37 Dose: 1,000 mg Admin: 07/09/16 13:50 Dose: 1,000 mg Al Hydroxide/Mg Hydroxide (Mag-Al Plus) 30 ml PO Q4H PRN PRN Reason: indigestion Aspirin (Aspirin) 325 mg PO BID [facility] Bisacodyl (Dulcolax) 10 mg RECTAL DAILY PRN PRN Reason: Constipation Diphenhydramine HCl (Benadryl) 25 - 50 mg PO Q6H PRN PRN Reason: Itching Docusate Sodium (Colace) 100 mg PO BID [facility] Last Admin: 07/09/16 20:38 Dose: 100 mg Furosemide (Lasix) 80 mg PO BID [facility] Last Admin: 07/09/16 20:38 Dose: 80 mg Hydromorphone HCl (Dilaudid) 0.5 - 1 mg IVPUSH Q3H PRN PRN Reason: Pain Last Admin: 07/10/16 05:54 Dose: 1 mg Admin: 07/09/16 15:40 Dose: 1 mg Dextrose/Water (Dextrose 5% In Water) 500 mls @ 75 mls/hr IV ASDIRECTED [facility] Last Admin: 07/09/16 07:26 Dose: 75 mls/hr Insulin Aspart (Novolog) 0 unit SUBCUT TIDAC [facility] PRN Reason: Protocol Last Admin: 07/10/16 06:30 Dose: Not Given Admin: 07/09/16 17:30 Dose: Not Given Insulin Detemir (Levemir) 40 unit SUBCUT BEDTIME [facility] Last Admin: 07/09/16 21:14 Dose: 40 units Losartan Potassium (Cozaar) 100 mg PO DAILY [facility] Ondansetron HCl (Zofran) 4 mg IV Q6HR PRN PRN Reason: NAUSEA/VOMITING Oxybutynin Chloride (Oxybutynin) 5 mg PO BEDTIME [facility] Last Admin: 07/09/16 20:38 Dose: 5 mg Oxycodone HCl (Oxycodone) 5 - 10 mg PO Q4H PRN PRN Reason: Pain Last Admin: 07/09/16 16:57 Dose: 10 mg Oxycodone HCl (Oxycontin) 10 mg PO Q12HR [facility] Last Admin: 07/09/16 20:38 Dose: 10 mg Scopolamine (Transderm-Scop) 1.5 mg ELIZABETHIVANNAAmarilis ANDRE [facility] Last Admin: 07/09/16 07:27 Dose: 1.5 mg - Assessment Assessment (Free Text/Narrative):: Patient up to chair this AM Tolerating diet VSS Pain controlled UO 420 mL Hgb 13 - Plan Plan (Free Text/Narrative):: Continue pain management Continue physical therapy Begin Aspirin 325 mg PO BID for DVT prophylaxis Encourage PO fluid intake Will plan for D/C home tomorrow
--- NOTE | 2016-07-10 08:03 | PCM.CONSN ---
- General Info Date of Service: 07/10/16 Admission Dx/Problem (Free Text): Admission Diagnosis/Problem Admission Diagnosis/Problem Replacement of total knee joint Subjective Update: Sitting up in chair enjoying breakfast. Has pain to R knee, otherwise is feeling ok. No chest pain or SOB. No Palpitations. Functional Status: Reports: tolerating diet, ambulating, urinating - Review of Systems General: Reports: No Symptoms. Denies: Fever HEENT: Reports: no symptoms Pulmonary: Reports: no symptoms. Denies: shortness of breath, cough, sputum Cardiovascular: Reports: No Symptoms Gastrointestinal: Reports: No symptoms. Denies: Abdominal pain, Nausea, Vomiting - Patient Data Vitals - most recent: Last Vital Signs Temp 98.4 F 07/10/16 07:16 Pulse 61 07/10/16 07:16 Resp 20 07/10/16 07:16 BP 121/77 07/10/16 07:16 Pulse Ox 100 07/10/16 07:16 Weight - most recent: 139.253 kg I&O - last 24 hours: Intake & Output 07/09/16 07/10/16 07/10/16 22:59 06:59 14:59 Intake Total 1100 700 Output Total 200 500 Balance 900 200 Lab Results last 24 hrs: Laboratory Results - last 24 hr 07/09/16 07/09/16 07/09/16 Range/Units 07:15 07:21 10:53 WBC (4.0-11.0) K/uL RBC (4.50-5.90) M/uL Hgb (13.0-17.0) g/dL Hct (38.0-50.0) % MCV (80.0-98.0) fL MCH (27.0-32.0) pg MCHC (31.0-37.0) g/dL RDW Std Deviation (28.0-62.0) fl RDW Coeff of [place] (11.0-15.0) % Plt Count (150-400) K/uL MPV (7.40-12.00) fL Neut % (Auto) (48.0-80.0) % Lymph % (Auto) (16.0-40.0) % Davison % (Auto) (0.0-15.0) % Eos % (Auto) (0.0-7.0) % Baso % (Auto) (0.0-1.5) % Neut # (Auto) (1.4-5.7) K/uL Lymph # (Auto) (0.6-2.4) K/uL Davison # (Auto) (0.0-0.8) K/uL Eos # (Auto) (0.0-0.7) K/uL Baso # (Auto) (0.0-0.1) K/uL Nucleated RBC % /100WBC Nucleated RBCs # K/uL Sodium (136-146) mmol/L Potassium (3.5-5.1) mmol/L Chloride (98-110) mmol/L Carbon Dioxide (21-31) mmol/L BUN (6.0-23.0) mg/dL Creatinine (0.6-1.5) mg/dL Est Cr Clr Drug Dosing mL/min Estimated GFR (MDRD) ml/min Glucose (60-110) mg/dL POC Glucose 132 H 152 H (60-110) mg/dL Calcium (8.8-10.8) mg/dL Magnesium (1.5-2.3) mEq/L Total Bilirubin (0.1-1.5) mg/dL AST (5-40) IU/L ALT (8-54) IU/L Alkaline Phosphatase (40-150) Total Protein (6.0-8.0) g/dL Albumin (3.4-4.8) g/dL Globulin (2.0-3.5) g/dL Albumin/Globulin Ratio (1.3-2.8) Blood Type O POSITIVE Antibody Screen NEGATIVE 07/09/16 07/09/16 07/09/16 Range/Units 14:28 14:28 16:37 WBC 12.47 H (4.0-11.0) K/uL RBC 4.31 L (4.50-5.90) M/uL Hgb 12.6 L (13.0-17.0) g/dL Hct 41.1 (38.0-50.0) % MCV 95.4 (80.0-98.0) fL MCH 29.2 (27.0-32.0) pg MCHC 30.7 L (31.0-37.0) g/dL RDW Std Deviation 55.9 (28.0-62.0) fl RDW Coeff of [place] 16 H (11.0-15.0) % Plt Count 164 (150-400) K/uL MPV 9.80 (7.40-12.00) fL Neut % (Auto) 79.4 (48.0-80.0) % Lymph % (Auto) 11.5 L (16.0-40.0) % Davison % (Auto) 7.9 (0.0-15.0) % Eos % (Auto) 1.0 (0.0-7.0) % Baso % (Auto) 0.2 (0.0-1.5) % Neut # (Auto) 9.9 H (1.4-5.7) K/uL Lymph # (Auto) 1.4 (0.6-2.4) K/uL Davison # (Auto) 1.0 H (0.0-0.8) K/uL Eos # (Auto) 0.1 (0.0-0.7) K/uL Baso # (Auto) 0.0 (0.0-0.1) K/uL Nucleated RBC % 0.0 /100WBC Nucleated RBCs # 0 K/uL Sodium 142 (136-146) mmol/L Potassium 5.4 H (3.5-5.1) mmol/L Chloride 110 (98-110) mmol/L Carbon Dioxide 25 (21-31) mmol/L BUN 25 H (6.0-23.0) mg/dL Creatinine 1.5 (0.6-1.5) mg/dL Est Cr Clr Drug Dosing 43.26 mL/min Estimated GFR (MDRD) 45.5 ml/min Glucose 167 H (60-110) mg/dL POC Glucose 133 H (60-110) mg/dL Calcium 8.5 L (8.8-10.8) mg/dL Magnesium 1.8 (1.5-2.3) mEq/L Total Bilirubin 0.5 (0.1-1.5) mg/dL AST 16 (5-40) IU/L ALT 15 (8-54) IU/L Alkaline Phosphatase 69 (40-150) Total Protein 5.7 L (6.0-8.0) g/dL Albumin 3.2 L (3.4-4.8) g/dL Globulin 2.5 (2.0-3.5) g/dL Albumin/Globulin Ratio 1.3 (1.3-2.8) Blood Type Antibody Screen 07/09/16 07/10/16 07/10/16 Range/Units 20:44 06:23 06:42 WBC (4.0-11.0) K/uL RBC (4.50-5.90) M/uL Hgb (13.0-17.0) g/dL Hct (38.0-50.0) % MCV (80.0-98.0) fL MCH (27.0-32.0) pg MCHC (31.0-37.0) g/dL RDW Std Deviation (28.0-62.0) fl RDW Coeff of [place] (11.0-15.0) % Plt Count (150-400) K/uL MPV (7.40-12.00) fL Neut % (Auto) (48.0-80.0) % Lymph % (Auto) (16.0-40.0) % Davison % (Auto) (0.0-15.0) % Eos % (Auto) (0.0-7.0) % Baso % (Auto) (0.0-1.5) % Neut # (Auto) (1.4-5.7) K/uL Lymph # (Auto) (0.6-2.4) K/uL Davison # (Auto) (0.0-0.8) K/uL Eos # (Auto) (0.0-0.7) K/uL Baso # (Auto) (0.0-0.1) K/uL Nucleated RBC % /100WBC Nucleated RBCs # K/uL Sodium 140 (136-146) mmol/L Potassium 5.6 H (3.5-5.1) mmol/L Chloride 106 (98-110) mmol/L Carbon Dioxide 24 (21-31) mmol/L BUN 29 H (6.0-23.0) mg/dL Creatinine 1.9 H (0.6-1.5) mg/dL Est Cr Clr Drug Dosing 34.24 mL/min Estimated GFR (MDRD) 34.6 ml/min Glucose 151 H (60-110) mg/dL POC Glucose 132 H 135 H (60-110) mg/dL Calcium 8.2 L (8.8-10.8) mg/dL Magnesium 2.0 (1.5-2.3) mEq/L Total Bilirubin (0.1-1.5) mg/dL AST (5-40) IU/L ALT (8-54) IU/L Alkaline Phosphatase (40-150) Total Protein (6.0-8.0) g/dL Albumin (3.4-4.8) g/dL Globulin (2.0-3.5) g/dL Albumin/Globulin Ratio (1.3-2.8) Blood Type Antibody Screen Med Orders - Current: Current Medications Acetaminophen (Tylenol Extra Strength) 1,000 mg PO Q6H [facility] Last Admin: 07/10/16 05:59 Dose: Not Given Al Hydroxide/Mg Hydroxide (Mag-Al Plus) 30 ml PO Q4H PRN PRN Reason: indigestion Aspirin (Aspirin) 325 mg PO BID [facility] Bisacodyl (Dulcolax) 10 mg RECTAL DAILY PRN PRN Reason: Constipation Diphenhydramine HCl (Benadryl) 25 - 50 mg PO Q6H PRN PRN Reason: Itching Docusate Sodium (Colace) 100 mg PO BID [facility] Last Admin: 07/09/16 20:38 Dose: 100 mg Furosemide (Lasix) 80 mg PO BID [facility] Last Admin: 07/09/16 20:38 Dose: 80 mg Hydromorphone HCl (Dilaudid) 0.5 - 1 mg IVPUSH Q3H PRN PRN Reason: Pain Last Admin: 07/10/16 05:54 Dose: 1 mg Insulin Aspart (Novolog) 0 unit SUBCUT TIDAC [facility] PRN Reason: Protocol Last Admin: 07/10/16 06:30 Dose: Not Given Insulin Detemir (Levemir) 40 unit SUBCUT BEDTIME [facility] Last Admin: 07/09/16 21:14 Dose: 40 units Losartan Potassium (Cozaar) 100 mg PO DAILY [facility] Ondansetron HCl (Zofran) 4 mg IV Q6HR PRN PRN Reason: NAUSEA/VOMITING Oxybutynin Chloride (Oxybutynin) 5 mg PO BEDTIME [facility] Last Admin: 07/09/16 20:38 Dose: 5 mg Oxycodone HCl (Oxycodone) 5 - 10 mg PO Q4H PRN PRN Reason: Pain Last Admin: 07/09/16 16:57 Dose: 10 mg Oxycodone HCl (Oxycontin) 10 mg PO Q12HR [facility] Last Admin: 07/09/16 20:38 Dose: 10 mg Scopolamine (Transderm-Scop) 1.5 mg TRDERM ONARRIVE [facility] Last Admin: 07/09/16 07:27 Dose: 1.5 mg Discontinued Medications Celecoxib (Celebrex) 200 mg PO DAILY [facility] Ephedrine Sulfate (Ephedrine Sulfate) Confirm Administered Dose 100 mg .ROUTE .STK-MED ONE Stop: 07/09/16 07:16 Famotidine (Pepcid) 40 mg IVPUSH ONARRIVE [facility] Stop: 07/09/16 12:01 Last Admin: 07/09/16 07:28 Dose: 40 mg Fentanyl (Sublimaze) Confirm Administered Dose 100 mcg .ROUTE .STK-MED ONE Stop: 07/09/16 07:15 Fentanyl (Sublimaze) Confirm Administered Dose 100 mcg .ROUTE .STK-MED ONE Stop: 07/09/16 07:16 Fentanyl (Sublimaze) 50 mcg IVPUSH Q5M PRN PRN Reason: Pain (severe 7-10) Stop: 07/10/16 09:42 Last Admin: 07/09/16 11:18 Dose: 50 mcg Acetaminophen 1,000 mg/ Premix 100 mls @ 400 mls/hr IV ONARRIVE [facility] Stop: 07/09/16 12:01 Ropivacaine 49.25 ml/Ketorolac Tromethamine 30 mg/Epinephrine HCl 0.5 mg/ Clonidine HCl 80 mcg/ Sodium Chloride 100 mls @ 50 mls/min INJECT ASDIRECTED [facility] Stop: 07/09/16 12:01 Lactated Ringer's (Ringers, Lactated) 1,000 mls @ 100 mls/hr IV ASDIRECTED [facility] Last Admin: 07/09/16 07:25 Dose: 100 mls/hr Tranexamic Acid 4,000 mg/ (Sodium Chloride) 140 mls @ 600 mls/hr IV ASDIRECTED [facility] Stop: 07/09/16 12:01 Cefazolin Sodium/Dextrose 2 gm (/ Premix) 50 mls @ 100 mls/hr IV ONCALL [facility] Stop: 07/09/16 12:01 Dextrose/Water (Dextrose 5% In Water) 500 mls @ 75 mls/hr IV ASDIRECTED [facility] Last Admin: 07/09/16 07:26 Dose: 75 mls/hr Acetaminophen (Ofirmev) 1,000 mls @ 4,000 mls/hr IV ONARRIVE [facility] Stop: 07/09/16 12:01 Last Admin: 07/09/16 07:27 Dose: 4,000 mls/hr Cefazolin Sodium/Dextrose 2 gm (/ Premix) 50 mls @ 100 mls/hr IV Q8HR [facility] Stop: 07/09/16 22:29 Last Infusion: 07/09/16 17:28 Dose: Infused Cefazolin Sodium/Dextrose 2 gm (/ Premix) 50 mls @ 100 mls/hr IV Q8HR [facility] Stop: 07/10/16 03:29 Last Admin: 07/10/16 05:49 Dose: Not Given Ketorolac Tromethamine (Toradol) 15 mg IVPUSH ONARRIVE [facility] Last Admin: 07/09/16 07:28 Dose: 15 mg Ketorolac Tromethamine (Toradol) 15 mg IVPUSH Q6H [facility] Stop: 07/10/16 03:01 Lidocaine (Xylocaine-Mpf 2%) Confirm Administered Dose 10 ml .ROUTE .STK-MED ONE Stop: 07/09/16 07:15 Lidocaine (Xylocaine-Mpf 2%) Confirm Administered Dose 5 ml .ROUTE .STK-MED ONE Stop: 07/09/16 07:19 Lidocaine HCl (Xylocaine 1%) Confirm Administered Dose 50 ml .ROUTE .STK-MED ONE Stop: 07/09/16 06:49 Midazolam HCl (Versed 1 Mg/Ml) Confirm Administered Dose 2 mg .ROUTE .STK-MED ONE Stop: 07/09/16 07:15 Ondansetron HCl (Zofran) Confirm Administered Dose 4 mg .ROUTE .STK-MED ONE Stop: 07/09/16 07:16 Oxycodone HCl (Oxycontin) 10 mg PO ONARRIVE [facility] Stop: 07/09/16 12:01 Last Admin: 07/09/16 07:27 Dose: 10 mg Phenylephrine HCl (Alexis-Synephrine) Confirm Administered Dose 10 mg .ROUTE .STK- MED ONE Stop: 07/09/16 08:53 Potassium Chloride (Klor-Con M20) 20 meq PO DAILY [facility] Propofol (Diprivan 20 Ml) Confirm Administered Dose 400 mg .ROUTE .STK-MED ONE Stop: 07/09/16 07:15 Propofol (Diprivan 20 Ml) Confirm Administered Dose 200 mg .ROUTE .STK-MED ONE Stop: 07/09/16 07:19 Succinylcholine Chloride (Succinylcholine In Ns Pf) Confirm Administered Dose 200 mg .ROUTE .STK-MED ONE Stop: 07/09/16 07:17 Tranexamic Acid (Cyklokapron) Confirm Administered Dose 4,000 mg .ROUTE .STK- MED ONE Stop: 07/09/16 07:12 - Exam General: alert, oriented, cooperative Neck: supple Lungs: Clear to auscultation, Normal respiratory effort. No: Crackles Cardiovascular: Regular Rate, Regular Rhythm, No Murmurs. No: Irregular Rhythm , Murmurs Extremities: normal pulses, edema (+1 non pitting BLE.) Consult PN Assessment/Plan Procedures: Procedures ASSAY OF IRON (02/21/15) CHEST X-RAY 2VW FRONTAL&LATL (04/30/16) COMPLETE CBC AUTOMATED (12/07/14) COMPLETE CBC W/AUTO DIFF WBC (06/25/16) COMPREHEN METABOLIC PANEL (06/25/16) ELECTROCARDIOGRAM TRACING (04/30/16) GLYCOSYLATED HEMOGLOBIN TEST (06/08/16) LIPID PANEL (04/30/16) MEDICAL NUTRITION INDIV IN (01/20/15) MRI JNT OF LWR EXTRE W/O DYE (04/24/16) OFFICE/OUTPATIENT VISIT EST (01/17/15) OFFICE/OUTPATIENT VISIT NEW (12/09/14) PROTHROMBIN TIME (06/25/16) ROUTINE VENIPUNCTURE (06/25/16) THROMBOPLASTIN TIME PARTIAL (06/25/16) TTE W/DOPPLER COMPLETE (12/31/14) URINALYSIS AUTO W/SCOPE (06/25/16) X-RAY EXAM KNEE 4 OR MORE (03/29/16) (1) S/P total knee arthroplasty SNOMED Code(s): 7894727463578, 994625509, 0997510591666 Code(s): Z96.659 - PRESENCE OF UNSPECIFIED ARTIFICIAL KNEE JOINT Current Visit: Yes Qualifiers: Laterality: right Qualified Code(s): Z96.651 - Presence of right artificial knee joint (2) HTN (hypertension) SNOMED Code(s): 69206125 Code(s): I10 - ESSENTIAL (PRIMARY) HYPERTENSION Current Visit: Yes Qualifiers: Hypertension type: essential hypertension Qualified Code(s): I10 - Essential (primary) hypertension (3) A-fib SNOMED Code(s): 17087499 Code(s): I48.91 - UNSPECIFIED ATRIAL FIBRILLATION Current Visit: Yes (4) DM type 2 (diabetes mellitus, type 2) SNOMED Code(s): 92641659 Code(s): E11.9 - TYPE 2 DIABETES MELLITUS WITHOUT COMPLICATIONS Current Visit: Yes Qualifiers: Diabetes mellitus complication status: without complication Diabetes mellitus termite helper insulin use: with termite helper use Qualified Code(s): E11.9 - Type 2 diabetes mellitus without complications; Z79.4 - termite helper (current) use of insulin (5) Morbid obesity with BMI of 40.0-44.9, adult SNOMED Code(s): 292552307 Code(s): E66.01 - MORBID (SEVERE) OBESITY DUE TO EXCESS CALORIES; Z68.41 - BODY MASS INDEX (BMI) 40.0-44.9, ADULT Current Visit: Yes (6) LOUISE (acute kidney injury) SNOMED Code(s): 68105110 Code(s): N17.9 - ACUTE KIDNEY FAILURE, UNSPECIFIED Current Visit: Yes Problem List Initiated/Reviewed/Updated: Yes My Orders last 24 hours: My Active Orders 07/09/16 14:07 Telemetry Monitoring [Cardiac Monitoring] [RC] Q8H 07/09/16 17:00 Insulin Aspart [NovoLOG] See Protocol SUBCUT TIDAC 07/09/16 21:00 Furosemide [Lasix] 80 mg PO BID Insulin Detemir [Levemir] 40 unit SUBCUT BEDTIME Oxybutynin 5 mg PO BEDTIME 07/10/16 09:00 Losartan [Cozaar] 100 mg PO DAILY 07/11/16 05:00 BASIC METABOLIC PANEL,BMP [CHEM] DAILY MAGNESIUM [CHEM] DAILY 07/12/16 05:00 BASIC METABOLIC PANEL,BMP [CHEM] DAILY MAGNESIUM [CHEM] DAILY Plan: This 75 year old male admitted with R TKA, hospitalist service consulted for medical management of DM, HTN, and Afib 1. S/P R TKA: Per Ortho. 2. HTN: No peaked Ts on EKG. Baseline Cr 1.5. Holding Losartan and Lasix 80 mg BID today due to renal function. 3. DM type 2: Hold oral agents, may restart upon discharge home. Will Continue Levemir. Novolog SSI with meals. A1c 7.4 preoperatively. 4. Hx Afib: Telemetry shows SR. 5. LOUISE: May be related to pre-operative dosing of Toradol and Celebrex along with surgical procedure. Will monitor. Will hold Losartan and Lasix today. 6. Hyperkalemia: EKG shows no signs of peaked T monitor later today. VTE prophylaxis: Per Ortho when deemed appropriate, ASA BID ordered per Ortho.
[2016-07-10] MEDS: oxyCODONE ER 10 MG TAB.ER PO SCH ×2 (08:38→20:10)
[2016-07-10] MEDS: Aspirin 325 MG Tab PO SCH ×2 (08:39→20:09)
[2016-07-10] MEDS: Docusate Sodium 100 MG Cap PO SCH ×2 (08:39→20:11)
[2016-07-10] MEDS ORDERED: Losartan 50 MG Tab PO SCH (09:00)
[2016-07-10] MEDS ORDERED: Celecoxib 100 MG Cap PO SCH (09:00)
[2016-07-10] MEDS ORDERED: Potassium Chloride 20 MEQ Tab.ER PO SCH (09:00)
--- NOTE | 2016-07-10 10:47 | PCM48HPAN ---
Post Anesthesia Note - EVALUATION WITHIN 48HRS OF ANESTHETIC Vital Signs in Normal Range: Yes Patient Participated in Evaluation: Yes Respiratory Function Stable: Yes (still has nasal canula on) Airway Patent: Yes Cardiovascular Function Stable: Yes (telemetry) Hydration Status Stable: Yes (PO) Pain Control Satisfactory: No (patient states still having lots of pain when walking) Nausea and Vomiting Control Satisfactory: Yes Mental Status Recovered: Yes (had 1 episode during night -confused tried to get out of bed and pulled IV ) - COMMENTS/OBSERVATIONS Free Text/Narrative:: Patient mental status fully recovered
[2016-07-10] MEDS: HYDROmorphone 1 MG/ML Syringe IVPUSH PRN ×2 (16:44→23:29)
[2016-07-10] MEDS: Insulin Detemir 100 Units/ML 3 ML Pen SUBCUT SCH (20:11)
[2016-07-10] MEDS: Oxybutynin 5 MG Tab PO SCH (20:11)
[2016-07-10] MEDS: oxyCODONE 5 MG Tab PO PRN (22:25)
[2016-07-11] MEDS: Acetaminophen 500 MG Tab PO SCH ×4 (02:33→20:45)
[2016-07-11] MEDS: oxyCODONE 5 MG Tab PO PRN ×3 (05:55→16:26)
[2016-07-11] MEDS: Insulin Aspart 100 Units/ML 3 ML Pen SUBCUT SCH ×3 (07:14→17:00)
--- NOTE | 2016-07-11 07:59 | PCM.SURGPN ---
<Angelique Rankin R - Last Filed: 07/11/16 09:01> - Patient Data Vitals - most recent: Last Vital Signs Temp 98.8 F 07/11/16 08:00 Pulse 103 H 07/11/16 08:00 Resp 20 07/11/16 08:00 BP 133/66 07/11/16 08:00 Pulse Ox 92 L 07/11/16 08:00 I&O - last 24 hours: Intake & Output 07/10/16 07/11/16 07/11/16 22:59 06:59 14:59 Intake Total 800 640 Output Total 400 375 Balance 400 265 Lab Results last 24 hrs: Laboratory Results - last 24 hr 07/10/16 07/10/16 07/10/16 Range/Units 11:32 12:57 16:46 Hgb (13.0-17.0) g/dL Hct (38.0-50.0) % Sodium 138 (136-146) mmol/L Potassium 5.6 H (3.5-5.1) mmol/L Chloride 106 (98-110) mmol/L Carbon Dioxide 23 (21-31) mmol/L BUN 32 H (6.0-23.0) mg/dL Creatinine 1.8 H (0.6-1.5) mg/dL Est Cr Clr Drug Dosing 36.14 mL/min Estimated GFR (MDRD) 36.9 ml/min Glucose 165 H (60-110) mg/dL POC Glucose 156 H 133 H (60-110) mg/dL Calcium 8.7 L (8.8-10.8) mg/dL Magnesium (1.5-2.3) mEq/L 07/10/16 07/11/16 07/11/16 Range/Units 20:07 04:35 04:35 Hgb 12.5 L (13.0-17.0) g/dL Hct 40.6 (38.0-50.0) % Sodium 136 (136-146) mmol/L Potassium 5.4 H (3.5-5.1) mmol/L Chloride 106 (98-110) mmol/L Carbon Dioxide 22 (21-31) mmol/L BUN 37 H (6.0-23.0) mg/dL Creatinine 1.7 H (0.6-1.5) mg/dL Est Cr Clr Drug Dosing 38.26 mL/min Estimated GFR (MDRD) 39.4 ml/min Glucose 137 H (60-110) mg/dL POC Glucose 214 H (60-110) mg/dL Calcium 8.4 L (8.8-10.8) mg/dL Magnesium 2.1 (1.5-2.3) mEq/L 07/11/16 Range/Units 06:23 Hgb (13.0-17.0) g/dL Hct (38.0-50.0) % Sodium (136-146) mmol/L Potassium (3.5-5.1) mmol/L Chloride (98-110) mmol/L Carbon Dioxide (21-31) mmol/L BUN (6.0-23.0) mg/dL Creatinine (0.6-1.5) mg/dL Est Cr Clr Drug Dosing mL/min Estimated GFR (MDRD) ml/min Glucose (60-110) mg/dL POC Glucose 166 H (60-110) mg/dL Calcium (8.8-10.8) mg/dL Magnesium (1.5-2.3) mEq/L Med Orders - Current: Current Medications Acetaminophen (Tylenol Extra Strength) 1,000 mg PO Q6H [facility] Last Admin: 07/11/16 08:27 Dose: 1,000 mg Al Hydroxide/Mg Hydroxide (Mag-Al Plus) 30 ml PO Q4H PRN PRN Reason: indigestion Aspirin (Aspirin) 325 mg PO BID [facility] Last Admin: 07/11/16 08:27 Dose: 325 mg Bisacodyl (Dulcolax) 10 mg RECTAL DAILY PRN PRN Reason: Constipation Diphenhydramine HCl (Benadryl) 25 - 50 mg PO Q6H PRN PRN Reason: Itching Docusate Sodium (Colace) 100 mg PO BID [facility] Last Admin: 07/11/16 08:27 Dose: 100 mg Hydromorphone HCl (Dilaudid) 0.5 - 1 mg IVPUSH Q3H PRN PRN Reason: Pain Last Admin: 07/10/16 23:29 Dose: 1 mg Insulin Aspart (Novolog) 0 unit SUBCUT TIDAC [facility] PRN Reason: Protocol Last Admin: 07/11/16 07:14 Dose: 2 units Insulin Detemir (Levemir) 40 unit SUBCUT BEDTIME [facility] Last Admin: 07/10/16 20:11 Dose: 40 units Ondansetron HCl (Zofran) 4 mg IV Q6HR PRN PRN Reason: NAUSEA/VOMITING Last Admin: 07/11/16 08:28 Dose: 4 mg Oxybutynin Chloride (Oxybutynin) 5 mg PO BEDTIME [facility] Last Admin: 07/10/16 20:11 Dose: 5 mg Oxycodone HCl (Oxycodone) 5 - 10 mg PO Q4H PRN PRN Reason: Pain Last Admin: 07/11/16 05:55 Dose: 10 mg Oxycodone HCl (Oxycontin) 10 mg PO Q12HR [facility] Last Admin: 07/11/16 08:27 Dose: 10 mg Scopolamine (Transderm-Scop) 1.5 mg TRDERM ONARRIVE [facility] Last Admin: 07/09/16 07:27 Dose: 1.5 mg Discontinued Medications Celecoxib (Celebrex) 200 mg PO DAILY [facility] Ephedrine Sulfate (Ephedrine Sulfate) Confirm Administered Dose 100 mg .ROUTE .STK-MED ONE Stop: 07/09/16 07:16 Famotidine (Pepcid) 40 mg IVPUSH ONARRIVE [facility] Stop: 07/09/16 12:01 Last Admin: 07/09/16 07:28 Dose: 40 mg Fentanyl (Sublimaze) Confirm Administered Dose 100 mcg .ROUTE .STK-MED ONE Stop: 07/09/16 07:15 Fentanyl (Sublimaze) Confirm Administered Dose 100 mcg .ROUTE .STK-MED ONE Stop: 07/09/16 07:16 Fentanyl (Sublimaze) 50 mcg IVPUSH Q5M PRN PRN Reason: Pain (severe 7-10) Stop: 07/10/16 09:42 Last Admin: 07/09/16 11:18 Dose: 50 mcg Furosemide (Lasix) 80 mg PO BID [facility] Last Admin: 07/09/16 20:38 Dose: 80 mg Hydromorphone HCl (Dilaudid) 0.5 - 1 mg IVPUSH Q3H PRN PRN Reason: Pain Last Admin: 07/10/16 11:28 Dose: 1 mg Acetaminophen 1,000 mg/ Premix 100 mls @ 400 mls/hr IV ONARRIVE [facility] Stop: 07/09/16 12:01 Ropivacaine 49.25 ml/Ketorolac Tromethamine 30 mg/Epinephrine HCl 0.5 mg/ Clonidine HCl 80 mcg/ Sodium Chloride 100 mls @ 50 mls/min INJECT ASDIRECTED [facility] Stop: 07/09/16 12:01 Lactated Ringer's (Ringers, Lactated) 1,000 mls @ 100 mls/hr IV ASDIRECTED [facility] Last Admin: 07/09/16 07:25 Dose: 100 mls/hr Tranexamic Acid 4,000 mg/ (Sodium Chloride) 140 mls @ 600 mls/hr IV ASDIRECTED [facility] Stop: 07/09/16 12:01 Cefazolin Sodium/Dextrose 2 gm (/ Premix) 50 mls @ 100 mls/hr IV ONCALL [facility] Stop: 07/09/16 12:01 Dextrose/Water (Dextrose 5% In Water) 500 mls @ 75 mls/hr IV ASDIRECTED [facility] Last Admin: 07/09/16 07:26 Dose: 75 mls/hr Acetaminophen (Ofirmev) 1,000 mls @ 4,000 mls/hr IV ONARRIVE [facility] Stop: 07/09/16 12:01 Last Admin: 07/09/16 07:27 Dose: 4,000 mls/hr Cefazolin Sodium/Dextrose 2 gm (/ Premix) 50 mls @ 100 mls/hr IV Q8HR [facility] Stop: 07/09/16 22:29 Last Infusion: 07/09/16 17:28 Dose: Infused Cefazolin Sodium/Dextrose 2 gm (/ Premix) 50 mls @ 100 mls/hr IV Q8HR [facility] Stop: 07/10/16 03:29 Last Admin: 07/10/16 05:49 Dose: Not Given Ketorolac Tromethamine (Toradol) 15 mg IVPUSH ONARRIVE [facility] Last Admin: 07/09/16 07:28 Dose: 15 mg Ketorolac Tromethamine (Toradol) 15 mg IVPUSH Q6H [facility] Stop: 07/10/16 03:01 Lidocaine (Xylocaine-Mpf 2%) Confirm Administered Dose 10 ml .ROUTE .STK-MED ONE Stop: 07/09/16 07:15 Lidocaine (Xylocaine-Mpf 2%) Confirm Administered Dose 5 ml .ROUTE .STK-MED ONE Stop: 07/09/16 07:19 Lidocaine HCl (Xylocaine 1%) Confirm Administered Dose 50 ml .ROUTE .STK-MED ONE Stop: 07/09/16 06:49 Losartan Potassium (Cozaar) 100 mg PO DAILY [facility] Midazolam HCl (Versed 1 Mg/Ml) Confirm Administered Dose 2 mg .ROUTE .STK-MED ONE Stop: 07/09/16 07:15 Ondansetron HCl (Zofran) Confirm Administered Dose 4 mg .ROUTE .STK-MED ONE Stop: 07/09/16 07:16 Oxycodone HCl (Oxycontin) 10 mg PO ONARRIVE [facility]AN[facility] Stop: 07/09/16 12:01 Last Admin: 07/09/16 07:27 Dose: 10 mg Phenylephrine HCl (Alexis-Synephrine) Confirm Administered Dose 10 mg .ROUTE .STK- MED ONE Stop: 07/09/16 08:53 Potassium Chloride (Klor-Con M20) 20 meq PO DAILY [facility] Propofol (Diprivan 20 Ml) Confirm Administered Dose 400 mg .ROUTE .STK-MED ONE Stop: 07/09/16 07:15 Propofol (Diprivan 20 Ml) Confirm Administered Dose 200 mg .ROUTE .STK-MED ONE Stop: 07/09/16 07:19 Succinylcholine Chloride (Succinylcholine In Ns Pf) Confirm Administered Dose 200 mg .ROUTE .STK-MED ONE Stop: 07/09/16 07:17 Tranexamic Acid (Cyklokapron) Confirm Administered Dose 4,000 mg .ROUTE .STK- MED ONE Stop: 07/09/16 07:12 - My Orders Last 24 Hours: Active Orders 24 hr Category Date Time Status EKG 12 Lead [EKG Documentation Completion] [RC] [facility] 07/10/16 09:33 Active BASIC METABOLIC PANEL,BMP [CHEM] DAILY Lab 07/12/16 05:00 Ordered HEMOGLOBIN/HEMATOCRIT,HH [HEME] DAILY Lab 07/12/16 07:00 Ordered MAGNESIUM [CHEM] DAILY Lab 07/12/16 05:00 Ordered Aspirin Med 07/10/16 09:00 Active 325 mg PO BID HYDROmorphone [Dilaudid] Med 07/10/16 11:55 Active 0.5 - 1 mg IVPUSH Q3H PRN Medication Orders Acetaminophen (Tylenol Extra Strength) 1,000 mg PO Q6H [facility] Last Admin: 07/11/16 08:27 Dose: 1,000 mg Admin: 07/11/16 02:33 Dose: 1,000 mg Admin: 07/10/16 20:10 Dose: 1,000 mg Admin: 07/10/16 15:03 Dose: 1,000 mg Admin: 07/10/16 08:37 Dose: 1,000 mg Admin: 07/10/16 05:59 Dose: Admin: 07/09/16 20:37 Dose: 1,000 mg Admin: 07/09/16 13:50 Dose: 1,000 mg Al Hydroxide/Mg Hydroxide (Mag-Al Plus) 30 ml PO Q4H PRN PRN Reason: indigestion Aspirin (Aspirin) 325 mg PO BID [facility] Last Admin: 07/11/16 08:27 Dose: 325 mg Admin: 07/10/16 20:09 Dose: 325 mg Admin: 07/10/16 08:39 Dose: 325 mg Bisacodyl (Dulcolax) 10 mg RECTAL DAILY PRN PRN Reason: Constipation Diphenhydramine HCl (Benadryl) 25 - 50 mg PO Q6H PRN PRN Reason: Itching Docusate Sodium (Colace) 100 mg PO BID [facility] Last Admin: 07/11/16 08:27 Dose: 100 mg Admin: 07/10/16 20:11 Dose: 100 mg Admin: 07/10/16 08:39 Dose: 100 mg Admin: 07/09/16 20:38 Dose: 100 mg Hydromorphone HCl (Dilaudid) 0.5 - 1 mg IVPUSH Q3H PRN PRN Reason: Pain Last Admin: 07/10/16 23:29 Dose: 1 mg Admin: 07/10/16 16:44 Dose: 1 mg Insulin Aspart (Novolog) 0 unit SUBCUT TIDAC [facility] PRN Reason: Protocol Last Admin: 07/11/16 07:14 Dose: 2 units Admin: 07/10/16 16:47 Dose: Not Given Admin: 07/10/16 11:32 Dose: 2 units Admin: 07/10/16 06:30 Dose: Not Given Admin: 07/09/16 17:30 Dose: Not Given Insulin Detemir (Levemir) 40 unit SUBCUT BEDTIME [facility] Last Admin: 07/10/16 20:11 Dose: 40 units Admin: 07/09/16 21:14 Dose: 40 units Ondansetron HCl (Zofran) 4 mg IV Q6HR PRN PRN Reason: NAUSEA/VOMITING Last Admin: 07/11/16 08:28 Dose: 4 mg Oxybutynin Chloride (Oxybutynin) 5 mg PO BEDTIME [facility] Last Admin: 07/10/16 20:11 Dose: 5 mg Admin: 07/09/16 20:38 Dose: 5 mg Oxycodone HCl (Oxycodone) 5 - 10 mg PO Q4H PRN PRN Reason: Pain Last Admin: 07/11/16 05:55 Dose: 10 mg Admin: 07/10/16 22:25 Dose: 10 mg Admin: 07/09/16 16:57 Dose: 10 mg Oxycodone HCl (Oxycontin) 10 mg PO Q12HR [facility] Last Admin: 07/11/16 08:27 Dose: 10 mg Admin: 07/10/16 20:10 Dose: 10 mg Admin: 07/10/16 08:38 Dose: 10 mg Admin: 07/09/16 20:38 Dose: 10 mg Scopolamine (Transderm-Scop) 1.5 mg TRDERM ONARRIVE [facility] Last Admin: 07/09/16 07:27 Dose: 1.5 mg - Plan Plan (Free Text/Narrative):: Pt seen and examined. Agree with above. Patient sitting up in chair. Did have an emesis earlier today, feels better now. Slow with PT. Pain better controlled now. Dressing intact. NVI. 1. continue pain management 2. PT for ROM and ambulation 3. ASA, SCD for DVT prophylaxis 4. possible discharge home tomorrow <Arlin Pierre - Last Filed: 07/11/16 13:04> - General Info Date of Service: 07/11/16 Date of Surgery/Procedure: 07/09/16 POD#: 2 Functional Status: Reports: pain controlled, tolerating diet, ambulating, urinating - Review of Systems General: Reports: No Symptoms HEENT: Reports: no symptoms Pulmonary: Reports: shortness of breath Cardiovascular: Reports: No Symptoms Gastrointestinal: Reports: No symptoms Genitourinary: Reports: no symptoms Musculoskeletal: Reports: leg pain, joint pain, joint swelling Neurological: Reports: No Symptoms Psychiatric: Reports: no symptoms - Patient Data Vitals - most recent: Last Vital Signs Temp 37.4 C 07/11/16 04:00 Pulse 105 H 07/11/16 04:00 Resp 20 07/11/16 04:00 BP 128/77 07/11/16 04:00 Pulse Ox 94 L 07/11/16 04:00 Weight - most recent: 139.253 kg I&O - last 24 hours: Intake & Output 07/10/16 07/11/16 07/11/16 22:59 06:59 14:59 Intake Total 800 640 Output Total 400 375 Balance 400 265 Lab Results last 24 hrs: Laboratory Results - last 24 hr 07/10/16 07/10/16 07/10/16 Range/Units 06:42 11:32 12:57 Hgb 13.0 (13.0-17.0) g/dL Hct 43.1 (38.0-50.0) % Sodium 138 (136-146) mmol/L Potassium 5.6 H (3.5-5.1) mmol/L Chloride 106 (98-110) mmol/L Carbon Dioxide 23 (21-31) mmol/L BUN 32 H (6.0-23.0) mg/dL Creatinine 1.8 H (0.6-1.5) mg/dL Est Cr Clr Drug Dosing 36.14 mL/min Estimated GFR (MDRD) 36.9 ml/min Glucose 165 H (60-110) mg/dL POC Glucose 156 H (60-110) mg/dL Calcium 8.7 L (8.8-10.8) mg/dL Magnesium (1.5-2.3) mEq/L 07/10/16 07/10/16 07/11/16 Range/Units 16:46 20:07 04:35 Hgb 12.5 L (13.0-17.0) g/dL Hct 40.6 (38.0-50.0) % Sodium (136-146) mmol/L Potassium (3.5-5.1) mmol/L Chloride (98-110) mmol/L Carbon Dioxide (21-31) mmol/L BUN (6.0-23.0) mg/dL Creatinine (0.6-1.5) mg/dL Est Cr Clr Drug Dosing mL/min Estimated GFR (MDRD) ml/min Glucose (60-110) mg/dL POC Glucose 133 H 214 H (60-110) mg/dL Calcium (8.8-10.8) mg/dL Magnesium (1.5-2.3) mEq/L 07/11/16 07/11/16 Range/Units 04:35 06:23 Hgb (13.0-17.0) g/dL Hct (38.0-50.0) % Sodium 136 (136-146) mmol/L Potassium 5.4 H (3.5-5.1) mmol/L Chloride 106 (98-110) mmol/L Carbon Dioxide 22 (21-31) mmol/L BUN 37 H (6.0-23.0) mg/dL Creatinine 1.7 H (0.6-1.5) mg/dL Est Cr Clr Drug Dosing 38.26 mL/min Estimated GFR (MDRD) 39.4 ml/min Glucose 137 H (60-110) mg/dL POC Glucose 166 H (60-110) mg/dL Calcium 8.4 L (8.8-10.8) mg/dL Magnesium 2.1 (1.5-2.3) mEq/L Med Orders - Current: Current Medications Acetaminophen (Tylenol Extra Strength) 1,000 mg PO Q6H [facility] Last Admin: 07/11/16 02:33 Dose: 1,000 mg Al Hydroxide/Mg Hydroxide (Mag-Al Plus) 30 ml PO Q4H PRN PRN Reason: indigestion Aspirin (Aspirin) 325 mg PO BID [facility] Last Admin: 07/10/16 20:09 Dose: 325 mg Bisacodyl (Dulcolax) 10 mg RECTAL DAILY PRN PRN Reason: Constipation Diphenhydramine HCl (Benadryl) 25 - 50 mg PO Q6H PRN PRN Reason: Itching Docusate Sodium (Colace) 100 mg PO BID [facility] Last Admin: 07/10/16 20:11 Dose: 100 mg Hydromorphone HCl (Dilaudid) 0.5 - 1 mg IVPUSH Q3H PRN PRN Reason: Pain Last Admin: 07/10/16 23:29 Dose: 1 mg Insulin Aspart (Novolog) 0 unit SUBCUT TIDAC [facility] PRN Reason: Protocol Last Admin: 07/11/16 07:14 Dose: 2 units Insulin Detemir (Levemir) 40 unit SUBCUT BEDTIME [facility] Last Admin: 07/10/16 20:11 Dose: 40 units Ondansetron HCl (Zofran) 4 mg IV Q6HR PRN PRN Reason: NAUSEA/VOMITING Oxybutynin Chloride (Oxybutynin) 5 mg PO BEDTIME [facility] Last Admin: 07/10/16 20:11 Dose: 5 mg Oxycodone HCl (Oxycodone) 5 - 10 mg PO Q4H PRN PRN Reason: Pain Last Admin: 07/11/16 05:55 Dose: 10 mg Oxycodone HCl (Oxycontin) 10 mg PO Q12HR [facility] Last Admin: 07/10/16 20:10 Dose: 10 mg Scopolamine (Transderm-Scop) 1.5 mg TRDERM ONARRIVE [facility] Last Admin: 07/09/16 07:27 Dose: 1.5 mg Discontinued Medications Celecoxib (Celebrex) 200 mg PO DAILY [facility] Ephedrine Sulfate (Ephedrine Sulfate) Confirm Administered Dose 100 mg .ROUTE .STK-MED ONE Stop: 07/09/16 07:16 Famotidine (Pepcid) 40 mg IVPUSH ONARRIVE [facility] Stop: 07/09/16 12:01 Last Admin: 07/09/16 07:28 Dose: 40 mg Fentanyl (Sublimaze) Confirm Administered Dose 100 mcg .ROUTE .STK-MED ONE Stop: 07/09/16 07:15 Fentanyl (Sublimaze) Confirm Administered Dose 100 mcg .ROUTE .STK-MED ONE Stop: 07/09/16 07:16 Fentanyl (Sublimaze) 50 mcg IVPUSH Q5M PRN PRN Reason: Pain (severe 7-10) Stop: 07/10/16 09:42 Last Admin: 07/09/16 11:18 Dose: 50 mcg Furosemide (Lasix) 80 mg PO BID [facility] Last Admin: 07/09/16 20:38 Dose: 80 mg Hydromorphone HCl (Dilaudid) 0.5 - 1 mg IVPUSH Q3H PRN PRN Reason: Pain Last Admin: 07/10/16 11:28 Dose: 1 mg Acetaminophen 1,000 mg/ Premix 100 mls @ 400 mls/hr IV ONARRIVE [facility] Stop: 07/09/16 12:01 Ropivacaine 49.25 ml/Ketorolac Tromethamine 30 mg/Epinephrine HCl 0.5 mg/ Clonidine HCl 80 mcg/ Sodium Chloride 100 mls @ 50 mls/min INJECT ASDIRECTED [facility] Stop: 07/09/16 12:01 Lactated Ringer's (Ringers, Lactated) 1,000 mls @ 100 mls/hr IV ASDIRECTED [facility] Last Admin: 07/09/16 07:25 Dose: 100 mls/hr Tranexamic Acid 4,000 mg/ (Sodium Chloride) 140 mls @ 600 mls/hr IV ASDIRECTED [facility] Stop: 07/09/16 12:01 Cefazolin Sodium/Dextrose 2 gm (/ Premix) 50 mls @ 100 mls/hr IV ONCALL [facility] Stop: 07/09/16 12:01 Dextrose/Water (Dextrose 5% In Water) 500 mls @ 75 mls/hr IV ASDIRECTED [facility] Last Admin: 07/09/16 07:26 Dose: 75 mls/hr Acetaminophen (Ofirmev) 1,000 mls @ 4,000 mls/hr IV ONARRIVE [facility] Stop: 07/09/16 12:01 Last Admin: 07/09/16 07:27 Dose: 4,000 mls/hr Cefazolin Sodium/Dextrose 2 gm (/ Premix) 50 mls @ 100 mls/hr IV Q8HR [facility] Stop: 07/09/16 22:29 Last Infusion: 07/09/16 17:28 Dose: Infused Cefazolin Sodium/Dextrose 2 gm (/ Premix) 50 mls @ 100 mls/hr IV Q8HR [facility] Stop: 07/10/16 03:29 Last Admin: 07/10/16 05:49 Dose: Not Given Ketorolac Tromethamine (Toradol) 15 mg IVPUSH ONARRIVE [facility] Last Admin: 07/09/16 07:28 Dose: 15 mg Ketorolac Tromethamine (Toradol) 15 mg IVPUSH Q6H [facility] Stop: 07/10/16 03:01 Lidocaine (Xylocaine-Mpf 2%) Confirm Administered Dose 10 ml .ROUTE .STK-MED ONE Stop: 07/09/16 07:15 Lidocaine (Xylocaine-Mpf 2%) Confirm Administered Dose 5 ml .ROUTE .STK-MED ONE Stop: 07/09/16 07:19 Lidocaine HCl (Xylocaine 1%) Confirm Administered Dose 50 ml .ROUTE .STK-MED ONE Stop: 07/09/16 06:49 Losartan Potassium (Cozaar) 100 mg PO DAILY [facility] Midazolam HCl (Versed 1 Mg/Ml) Confirm Administered Dose 2 mg .ROUTE .STK-MED ONE Stop: 07/09/16 07:15 Ondansetron HCl (Zofran) Confirm Administered Dose 4 mg .ROUTE .STK-MED ONE Stop: 07/09/16 07:16 Oxycodone HCl (Oxycontin) 10 mg PO ONARRIVE [facility] Stop: 07/09/16 12:01 Last Admin: 07/09/16 07:27 Dose: 10 mg Phenylephrine HCl (Alexis-Synephrine) Confirm Administered Dose 10 mg .ROUTE .STK- MED ONE Stop: 07/09/16 08:53 Potassium Chloride (Klor-Con M20) 20 meq PO DAILY [facility] Propofol (Diprivan 20 Ml) Confirm Administered Dose 400 mg .ROUTE .STK-MED ONE Stop: 07/09/16 07:15 Propofol (Diprivan 20 Ml) Confirm Administered Dose 200 mg .ROUTE .STK-MED ONE Stop: 07/09/16 07:19 Succinylcholine Chloride (Succinylcholine In Ns Pf) Confirm Administered Dose 200 mg .ROUTE .STK-MED ONE Stop: 07/09/16 07:17 Tranexamic Acid (Cyklokapron) Confirm Administered Dose 4,000 mg .ROUTE .STK- MED ONE Stop: 07/09/16 07:12 - Exam Wound/Incisions: dressing dry and intact (Dressing changed today.) Quality Assessment: supplemental oxygen General: alert, oriented HEENT: Pupils equal, Pupils reactive Neck: supple Lungs: Normal respiratory effort Cardiovascular: Regular Rate Extremities: other (Anterior tibialis, EHL and gastrocn strength +5/5 bilaterally. Sensation intact. Dorsalis pedis and posterior tibial pulses +2 bilaterally. ) Neurological: no new focal deficit Psy/Mental Status: alert, normal affect, normal mood - Problem List Review Problem List Initiated/Reviewed/Updated: Yes - My Orders Last 24 Hours: Active Orders 24 hr Category Date Time Status EKG 12 Lead [EKG Documentation Completion] [RC] [facility] 07/10/16 09:33 Active BASIC METABOLIC PANEL,BMP [CHEM] DAILY Lab 07/12/16 05:00 Ordered HEMOGLOBIN/HEMATOCRIT,HH [HEME] DAILY Lab 07/12/16 07:00 Ordered MAGNESIUM [CHEM] DAILY Lab 07/12/16 05:00 Ordered Aspirin Med 07/10/16 09:00 Active 325 mg PO BID HYDROmorphone [Dilaudid] Med 07/10/16 11:55 Active 0.5 - 1 mg IVPUSH Q3H PRN Medication Orders Acetaminophen (Tylenol Extra Strength) 1,000 mg PO Q6H [facility] Last Admin: 07/11/16 02:33 Dose: 1,000 mg Admin: 07/10/16 20:10 Dose: 1,000 mg Admin: 07/10/16 15:03 Dose: 1,000 mg Admin: 07/10/16 08:37 Dose: 1,000 mg Admin: 07/10/16 05:59 Dose: Admin: 07/09/16 20:37 Dose: 1,000 mg Admin: 07/09/16 13:50 Dose: 1,000 mg Al Hydroxide/Mg Hydroxide (Mag-Al Plus) 30 ml PO Q4H PRN PRN Reason: indigestion Aspirin (Aspirin) 325 mg PO BID [facility] Last Admin: 07/10/16 20:09 Dose: 325 mg Admin: 07/10/16 08:39 Dose: 325 mg Bisacodyl (Dulcolax) 10 mg RECTAL DAILY PRN PRN Reason: Constipation Diphenhydramine HCl (Benadryl) 25 - 50 mg PO Q6H PRN PRN Reason: Itching Docusate Sodium (Colace) 100 mg PO BID [facility] Last Admin: 07/10/16 20:11 Dose: 100 mg Admin: 07/10/16 08:39 Dose: 100 mg Admin: 07/09/16 20:38 Dose: 100 mg Hydromorphone HCl (Dilaudid) 0.5 - 1 mg IVPUSH Q3H PRN PRN Reason: Pain Last Admin: 07/10/16 23:29 Dose: 1 mg Admin: 07/10/16 16:44 Dose: 1 mg Insulin Aspart (Novolog) 0 unit SUBCUT TIDAC [facility] PRN Reason: Protocol Last Admin: 07/11/16 07:14 Dose: 2 units Admin: 07/10/16 16:47 Dose: Not Given Admin: 07/10/16 11:32 Dose: 2 units Admin: 07/10/16 06:30 Dose: Not Given Admin: 07/09/16 17:30 Dose: Not Given Insulin Detemir (Levemir) 40 unit SUBCUT BEDTIME [facility] Last Admin: 07/10/16 20:11 Dose: 40 units Admin: 07/09/16 21:14 Dose: 40 units Ondansetron HCl (Zofran) 4 mg IV Q6HR PRN PRN Reason: NAUSEA/VOMITING Oxybutynin Chloride (Oxybutynin) 5 mg PO BEDTIME [facility] Last Admin: 07/10/16 20:11 Dose: 5 mg Admin: 07/09/16 20:38 Dose: 5 mg Oxycodone HCl (Oxycodone) 5 - 10 mg PO Q4H PRN PRN Reason: Pain Last Admin: 07/11/16 05:55 Dose: 10 mg Admin: 07/10/16 22:25 Dose: 10 mg Admin: 07/09/16 16:57 Dose: 10 mg Oxycodone HCl (Oxycontin) 10 mg PO Q12HR [facility] Last Admin: 07/10/16 20:10 Dose: 10 mg Admin: 07/10/16 08:38 Dose: 10 mg Admin: 07/09/16 20:38 Dose: 10 mg Scopolamine (Transderm-Scop) 1.5 mg TRDERM ONARRIVE [facility] Last Admin: 07/09/16 07:27 Dose: 1.5 mg - Assessment Assessment (Free Text/Narrative):: Patient up to chair this morning Pain was controlled over night though states PT yesterday was too painful, he was not able to walk much Supplemental oxygen via nasal cannula this AM due to SOB UO 775 mL Complained of not urinating this AM, nurse did bladder scan. Upon standing this morning, he did urinate. Hgb 12.5 Tolerating diet - Plan Plan (Free Text/Narrative):: Continue pain management Continue PT, encourage ambulation with wheeled walker Dressing was changed today Encourage PO fluid intake Will see how he does with PT today. Probable D/C home tomorrow if SOB improves and patient is able to ambulate.
--- NOTE | 2016-07-11 08:10 | PCM.CONSN ---
- General Info Date of Service: 07/11/16 Admission Dx/Problem (Free Text): Admission Diagnosis/Problem Admission Diagnosis/Problem Replacement of total knee joint Subjective Update: Sitting up in chair enjoying breakfast. Has pain to R knee, otherwise is feeling ok. No chest pain or SOB. No Palpitations. Functional Status: Reports: pain controlled, tolerating diet, ambulating, urinating - Review of Systems General: Reports: No Symptoms. Denies: Fever HEENT: Reports: no symptoms Pulmonary: Reports: no symptoms Cardiovascular: Reports: No Symptoms Gastrointestinal: Reports: Nausea, Vomiting (this am with breakfast) Genitourinary: Reports: no symptoms Musculoskeletal: Reports: no symptoms Skin: Reports: no symptoms Neurological: Reports: No Symptoms Psychiatric: Reports: no symptoms - Patient Data Vitals - most recent: Last Vital Signs Temp 99.3 F 07/11/16 04:00 Pulse 105 H 07/11/16 04:00 Resp 20 07/11/16 04:00 BP 128/77 07/11/16 04:00 Pulse Ox 94 L 07/11/16 04:00 Weight - most recent: 139.253 kg I&O - last 24 hours: Intake & Output 07/10/16 07/11/16 07/11/16 22:59 06:59 14:59 Intake Total 800 640 Output Total 400 375 Balance 400 265 Lab Results last 24 hrs: Laboratory Results - last 24 hr 07/10/16 07/10/16 07/10/16 Range/Units 06:42 11:32 12:57 Hgb 13.0 (13.0-17.0) g/dL Hct 43.1 (38.0-50.0) % Sodium 138 (136-146) mmol/L Potassium 5.6 H (3.5-5.1) mmol/L Chloride 106 (98-110) mmol/L Carbon Dioxide 23 (21-31) mmol/L BUN 32 H (6.0-23.0) mg/dL Creatinine 1.8 H (0.6-1.5) mg/dL Est Cr Clr Drug Dosing 36.14 mL/min Estimated GFR (MDRD) 36.9 ml/min Glucose 165 H (60-110) mg/dL POC Glucose 156 H (60-110) mg/dL Calcium 8.7 L (8.8-10.8) mg/dL Magnesium (1.5-2.3) mEq/L 07/10/16 07/10/16 07/11/16 Range/Units 16:46 20:07 04:35 Hgb 12.5 L (13.0-17.0) g/dL Hct 40.6 (38.0-50.0) % Sodium (136-146) mmol/L Potassium (3.5-5.1) mmol/L Chloride (98-110) mmol/L Carbon Dioxide (21-31) mmol/L BUN (6.0-23.0) mg/dL Creatinine (0.6-1.5) mg/dL Est Cr Clr Drug Dosing mL/min Estimated GFR (MDRD) ml/min Glucose (60-110) mg/dL POC Glucose 133 H 214 H (60-110) mg/dL Calcium (8.8-10.8) mg/dL Magnesium (1.5-2.3) mEq/L 07/11/16 07/11/16 Range/Units 04:35 06:23 Hgb (13.0-17.0) g/dL Hct (38.0-50.0) % Sodium 136 (136-146) mmol/L Potassium 5.4 H (3.5-5.1) mmol/L Chloride 106 (98-110) mmol/L Carbon Dioxide 22 (21-31) mmol/L BUN 37 H (6.0-23.0) mg/dL Creatinine 1.7 H (0.6-1.5) mg/dL Est Cr Clr Drug Dosing 38.26 mL/min Estimated GFR (MDRD) 39.4 ml/min Glucose 137 H (60-110) mg/dL POC Glucose 166 H (60-110) mg/dL Calcium 8.4 L (8.8-10.8) mg/dL Magnesium 2.1 (1.5-2.3) mEq/L Med Orders - Current: Current Medications Acetaminophen (Tylenol Extra Strength) 1,000 mg PO Q6H [facility] Last Admin: 07/11/16 02:33 Dose: 1,000 mg Al Hydroxide/Mg Hydroxide (Mag-Al Plus) 30 ml PO Q4H PRN PRN Reason: indigestion Aspirin (Aspirin) 325 mg PO BID [facility] Last Admin: 07/10/16 20:09 Dose: 325 mg Bisacodyl (Dulcolax) 10 mg RECTAL DAILY PRN PRN Reason: Constipation Diphenhydramine HCl (Benadryl) 25 - 50 mg PO Q6H PRN PRN Reason: Itching Docusate Sodium (Colace) 100 mg PO BID [facility] Last Admin: 07/10/16 20:11 Dose: 100 mg Hydromorphone HCl (Dilaudid) 0.5 - 1 mg IVPUSH Q3H PRN PRN Reason: Pain Last Admin: 07/10/16 23:29 Dose: 1 mg Insulin Aspart (Novolog) 0 unit SUBCUT TIDAC [facility] PRN Reason: Protocol Last Admin: 07/11/16 07:14 Dose: 2 units Insulin Detemir (Levemir) 40 unit SUBCUT BEDTIME [facility] Last Admin: 07/10/16 20:11 Dose: 40 units Ondansetron HCl (Zofran) 4 mg IV Q6HR PRN PRN Reason: NAUSEA/VOMITING Oxybutynin Chloride (Oxybutynin) 5 mg PO BEDTIME [facility] Last Admin: 07/10/16 20:11 Dose: 5 mg Oxycodone HCl (Oxycodone) 5 - 10 mg PO Q4H PRN PRN Reason: Pain Last Admin: 07/11/16 05:55 Dose: 10 mg Oxycodone HCl (Oxycontin) 10 mg PO Q12HR [facility] Last Admin: 07/10/16 20:10 Dose: 10 mg Scopolamine (Transderm-Scop) 1.5 mg TRDERM ONARRIVE [facility] Last Admin: 07/09/16 07:27 Dose: 1.5 mg Discontinued Medications Celecoxib (Celebrex) 200 mg PO DAILY [facility] Ephedrine Sulfate (Ephedrine Sulfate) Confirm Administered Dose 100 mg .ROUTE .STK-MED ONE Stop: 07/09/16 07:16 Famotidine (Pepcid) 40 mg IVPUSH ONARRIVE [facility] Stop: 07/09/16 12:01 Last Admin: 07/09/16 07:28 Dose: 40 mg Fentanyl (Sublimaze) Confirm Administered Dose 100 mcg .ROUTE .STK-MED ONE Stop: 07/09/16 07:15 Fentanyl (Sublimaze) Confirm Administered Dose 100 mcg .ROUTE .STK-MED ONE Stop: 07/09/16 07:16 Fentanyl (Sublimaze) 50 mcg IVPUSH Q5M PRN PRN Reason: Pain (severe 7-10) Stop: 07/10/16 09:42 Last Admin: 07/09/16 11:18 Dose: 50 mcg Furosemide (Lasix) 80 mg PO BID [facility] Last Admin: 07/09/16 20:38 Dose: 80 mg Hydromorphone HCl (Dilaudid) 0.5 - 1 mg IVPUSH Q3H PRN PRN Reason: Pain Last Admin: 07/10/16 11:28 Dose: 1 mg Acetaminophen 1,000 mg/ Premix 100 mls @ 400 mls/hr IV ONARRIVE [facility] Stop: 07/09/16 12:01 Ropivacaine 49.25 ml/Ketorolac Tromethamine 30 mg/Epinephrine HCl 0.5 mg/ Clonidine HCl 80 mcg/ Sodium Chloride 100 mls @ 50 mls/min INJECT ASDIRECTED [facility] Stop: 07/09/16 12:01 Lactated Ringer's (Ringers, Lactated) 1,000 mls @ 100 mls/hr IV ASDIRECTED [facility] Last Admin: 07/09/16 07:25 Dose: 100 mls/hr Tranexamic Acid 4,000 mg/ (Sodium Chloride) 140 mls @ 600 mls/hr IV ASDIRECTED [facility] Stop: 07/09/16 12:01 Cefazolin Sodium/Dextrose 2 gm (/ Premix) 50 mls @ 100 mls/hr IV ONCALL [facility] Stop: 07/09/16 12:01 Dextrose/Water (Dextrose 5% In Water) 500 mls @ 75 mls/hr IV ASDIRECTED [facility] Last Admin: 07/09/16 07:26 Dose: 75 mls/hr Acetaminophen (Ofirmev) 1,000 mls @ 4,000 mls/hr IV ONARRIVE [facility] Stop: 07/09/16 12:01 Last Admin: 07/09/16 07:27 Dose: 4,000 mls/hr Cefazolin Sodium/Dextrose 2 gm (/ Premix) 50 mls @ 100 mls/hr IV Q8HR [facility] Stop: 07/09/16 22:29 Last Infusion: 07/09/16 17:28 Dose: Infused Cefazolin Sodium/Dextrose 2 gm (/ Premix) 50 mls @ 100 mls/hr IV Q8HR [facility] Stop: 07/10/16 03:29 Last Admin: 07/10/16 05:49 Dose: Not Given Ketorolac Tromethamine (Toradol) 15 mg IVPUSH ONARRIVE [facility] Last Admin: 07/09/16 07:28 Dose: 15 mg Ketorolac Tromethamine (Toradol) 15 mg IVPUSH Q6H [facility] Stop: 07/10/16 03:01 Lidocaine (Xylocaine-Mpf 2%) Confirm Administered Dose 10 ml .ROUTE .STK-MED ONE Stop: 07/09/16 07:15 Lidocaine (Xylocaine-Mpf 2%) Confirm Administered Dose 5 ml .ROUTE .STK-MED ONE Stop: 07/09/16 07:19 Lidocaine HCl (Xylocaine 1%) Confirm Administered Dose 50 ml .ROUTE .STK-MED ONE Stop: 07/09/16 06:49 Losartan Potassium (Cozaar) 100 mg PO DAILY [facility] Midazolam HCl (Versed 1 Mg/Ml) Confirm Administered Dose 2 mg .ROUTE .STK-MED ONE Stop: 07/09/16 07:15 Ondansetron HCl (Zofran) Confirm Administered Dose 4 mg .ROUTE .STK-MED ONE Stop: 07/09/16 07:16 Oxycodone HCl (Oxycontin) 10 mg PO ONARRIVE [facility] Stop: 07/09/16 12:01 Last Admin: 07/09/16 07:27 Dose: 10 mg Phenylephrine HCl (Alexis-Synephrine) Confirm Administered Dose 10 mg .ROUTE .STK- MED ONE Stop: 07/09/16 08:53 Potassium Chloride (Klor-Con M20) 20 meq PO DAILY [facility] Propofol (Diprivan 20 Ml) Confirm Administered Dose 400 mg .ROUTE .STK-MED ONE Stop: 07/09/16 07:15 Propofol (Diprivan 20 Ml) Confirm Administered Dose 200 mg .ROUTE .STK-MED ONE Stop: 07/09/16 07:19 Succinylcholine Chloride (Succinylcholine In Ns Pf) Confirm Administered Dose 200 mg .ROUTE .STK-MED ONE Stop: 07/09/16 07:17 Tranexamic Acid (Cyklokapron) Confirm Administered Dose 4,000 mg .ROUTE .STK- MED ONE Stop: 07/09/16 07:12 - Exam Quality Assessment: supplemental oxygen, DVT prophylaxis General: alert, oriented, cooperative Lungs: Clear to auscultation, Normal respiratory effort Cardiovascular: Regular Rate, Regular Rhythm Abdomen: bowel sounds present, soft, no tenderness, no distension Extremities: normal pulses, no tenderness/swelling, edema (+1 pitting edema BLE) Neurological: no new focal deficit Psy/Mental Status: alert, normal affect, normal mood Consult PN Assessment/Plan Procedures: Procedures ASSAY OF IRON (02/21/15) CHEST X-RAY 2VW FRONTAL&LATL (04/30/16) COMPLETE CBC AUTOMATED (12/07/14) COMPLETE CBC W/AUTO DIFF WBC (06/25/16) COMPREHEN METABOLIC PANEL (06/25/16) ELECTROCARDIOGRAM TRACING (04/30/16) GLYCOSYLATED HEMOGLOBIN TEST (06/08/16) LIPID PANEL (04/30/16) MEDICAL NUTRITION INDIV IN (01/20/15) MRI JNT OF LWR EXTRE W/O DYE (04/24/16) OFFICE/OUTPATIENT VISIT EST (01/17/15) OFFICE/OUTPATIENT VISIT NEW (12/09/14) PROTHROMBIN TIME (06/25/16) ROUTINE VENIPUNCTURE (06/25/16) THROMBOPLASTIN TIME PARTIAL (06/25/16) TTE W/DOPPLER COMPLETE (12/31/14) URINALYSIS AUTO W/SCOPE (06/25/16) X-RAY EXAM KNEE 4 OR MORE (03/29/16) (1) S/P total knee arthroplasty SNOMED Code(s): 5241161432248, 470326261, 5776358297151 Code(s): Z96.659 - PRESENCE OF UNSPECIFIED ARTIFICIAL KNEE JOINT Current Visit: Yes Qualifiers: Laterality: right Qualified Code(s): Z96.651 - Presence of right artificial knee joint (2) HTN (hypertension) SNOMED Code(s): 80657353 Code(s): I10 - ESSENTIAL (PRIMARY) HYPERTENSION Current Visit: Yes Qualifiers: Hypertension type: essential hypertension Qualified Code(s): I10 - Essential (primary) hypertension (3) A-fib SNOMED Code(s): 98276721 Code(s): I48.91 - UNSPECIFIED ATRIAL FIBRILLATION Current Visit: Yes (4) DM type 2 (diabetes mellitus, type 2) SNOMED Code(s): 06484595 Code(s): E11.9 - TYPE 2 DIABETES MELLITUS WITHOUT COMPLICATIONS Current Visit: Yes Qualifiers: Diabetes mellitus complication status: without complication Diabetes mellitus jail insulin use: with termite helper use Qualified Code(s): E11.9 - Type 2 diabetes mellitus without complications; Z79.4 - termite exterminator (current) use of insulin (5) Morbid obesity with BMI of 40.0-44.9, adult SNOMED Code(s): 296796396 Code(s): E66.01 - MORBID (SEVERE) OBESITY DUE TO EXCESS CALORIES; Z68.41 - BODY MASS INDEX (BMI) 40.0-44.9, ADULT Current Visit: Yes (6) LOUISE (acute kidney injury) SNOMED Code(s): 51480895 Code(s): N17.9 - ACUTE KIDNEY FAILURE, UNSPECIFIED Current Visit: Yes Problem List Initiated/Reviewed/Updated: Yes My Orders last 24 hours: My Active Orders 07/10/16 09:33 EKG 12 Lead [EKG Documentation Completion] [RC] URGENT 07/12/16 05:00 BASIC METABOLIC PANEL,BMP [CHEM] DAILY MAGNESIUM [CHEM] DAILY Plan: This 75 year old male admitted with R TKA, hospitalist service consulted for medical management of DM, HTN, and Afib 1. S/P R TKA: Per Ortho. 2. HTN: No peaked Ts on EKG. Baseline Cr 1.5. Holding Losartan and Lasix 80 mg BID today due to renal function. Upon further review of past chart, LV EF 40-45 % with mildly decreased Left ventricular systolic function on ECHO from 2014. Will restart Lasix today. 3. DM type 2: Hold oral agents, may restart upon discharge home. Will Continue Levemir. Novolog SSI with meals. A1c 7.4 preoperatively. 4. Hx Afib: Telemetry shows SR. 5. LOUISE: Slowly improving. Will hold Losartan. Restart Lasix today. 6. Hyperkalemia: EKG shows no signs of peaked T monitor later today. Stable, adding Lasix today. VTE prophylaxis: Per Ortho when deemed appropriate, ASA BID ordered per Ortho.
[2016-07-11] MEDS: Aspirin 325 MG Tab PO SCH ×2 (08:27→20:49)
[2016-07-11] MEDS: oxyCODONE ER 10 MG TAB.ER PO SCH ×3 (08:27→22:21)
[2016-07-11] MEDS: Docusate Sodium 100 MG Cap PO SCH ×2 (08:27→20:50)
[2016-07-11] MEDS: Furosemide 80 MG Tab PO SCH ×2 (11:21→14:51)
[2016-07-11] MEDS: HYDROmorphone 1 MG/ML Syringe IVPUSH PRN (17:53)
[2016-07-11] MEDS: Oxybutynin 5 MG Tab PO SCH (20:50)
[2016-07-11] MEDS: Insulin Detemir 100 Units/ML 3 ML Pen SUBCUT SCH (21:08)
[2016-07-11] MEDS ORDERED: Ketorolac 30 MG/ML SDV IVPUSH SCH (23:00)
--- NOTE | 2016-07-11 23:01 | PCM.CONSN ---
- General Info Date of Service: 07/11/16 Admission Dx/Problem (Free Text): Admission Diagnosis/Problem Admission Diagnosis/Problem Replacement of total knee joint Subjective Update: Sitting up in chair enjoying breakfast. Has pain to R knee, otherwise is feeling ok. No chest pain or SOB. No Palpitations. - Review of Systems Systems Review Comment:: I as called to see him for confusion and myoclonus jerks. - Patient Data Vitals - most recent: Last Vital Signs Temp 98.4 F 07/11/16 20:00 Pulse 130 H 07/11/16 20:00 Resp 20 07/11/16 20:00 BP 140/85 07/11/16 20:00 Pulse Ox 97 07/11/16 20:00 Weight - most recent: 139.253 kg I&O - last 24 hours: Intake & Output 07/11/16 07/11/16 07/12/16 14:59 22:59 06:59 Intake Total 800 Output Total 1100 Balance -300 Lab Results last 24 hrs: Laboratory Results - last 24 hr 07/11/16 07/11/16 07/11/16 Range/Units 04:35 04:35 06:23 Hgb 12.5 L (13.0-17.0) g/dL Hct 40.6 (38.0-50.0) % Sodium 136 (136-146) mmol/L Potassium 5.4 H (3.5-5.1) mmol/L Chloride 106 (98-110) mmol/L Carbon Dioxide 22 (21-31) mmol/L BUN 37 H (6.0-23.0) mg/dL Creatinine 1.7 H (0.6-1.5) mg/dL Est Cr Clr Drug Dosing 38.26 mL/min Estimated GFR (MDRD) 39.4 ml/min Glucose 137 H (60-110) mg/dL POC Glucose 166 H (60-110) mg/dL Calcium 8.4 L (8.8-10.8) mg/dL Magnesium 2.1 (1.5-2.3) mEq/L 07/11/16 07/11/16 07/11/16 Range/Units 11:12 15:56 21:05 Hgb (13.0-17.0) g/dL Hct (38.0-50.0) % Sodium (136-146) mmol/L Potassium (3.5-5.1) mmol/L Chloride (98-110) mmol/L Carbon Dioxide (21-31) mmol/L BUN (6.0-23.0) mg/dL Creatinine (0.6-1.5) mg/dL Est Cr Clr Drug Dosing mL/min Estimated GFR (MDRD) ml/min Glucose (60-110) mg/dL POC Glucose 154 H 149 H 149 H (60-110) mg/dL Calcium (8.8-10.8) mg/dL Magnesium (1.5-2.3) mEq/L Med Orders - Current: Current Medications Acetaminophen (Tylenol Extra Strength) 1,000 mg PO Q6H [facility] Last Admin: 07/11/16 20:45 Dose: 1,000 mg Al Hydroxide/Mg Hydroxide (Mag-Al Plus) 30 ml PO Q4H PRN PRN Reason: indigestion Aspirin (Aspirin) 325 mg PO BID [facility] Last Admin: 07/11/16 20:49 Dose: 325 mg Bisacodyl (Dulcolax) 10 mg RECTAL DAILY PRN PRN Reason: Constipation Diphenhydramine HCl (Benadryl) 25 - 50 mg PO Q6H PRN PRN Reason: Itching Docusate Sodium (Colace) 100 mg PO BID [facility] Last Admin: 07/11/16 20:50 Dose: 100 mg Furosemide (Lasix) 80 mg PO BIDDIURETIC [facility] Last Admin: 07/11/16 14:51 Dose: 80 mg Insulin Aspart (Novolog) 0 unit SUBCUT TIDAC [facility] PRN Reason: Protocol Last Admin: 07/11/16 17:00 Dose: Not Given Insulin Detemir (Levemir) 40 unit SUBCUT BEDTIME [facility] Last Admin: 07/11/16 21:08 Dose: 40 units Ketorolac Tromethamine (Toradol) 30 mg IVPUSH Q8H [facility] Ondansetron HCl (Zofran) 4 mg IV Q6HR PRN PRN Reason: NAUSEA/VOMITING Last Admin: 07/11/16 08:28 Dose: 4 mg Oxybutynin Chloride (Oxybutynin) 5 mg PO BEDTIME [facility] Last Admin: 07/11/16 20:50 Dose: 5 mg Scopolamine (Transderm-Scop) 1.5 mg TRDERM ONARRIVE [facility] Last Admin: 07/09/16 07:27 Dose: 1.5 mg Discontinued Medications Celecoxib (Celebrex) 200 mg PO DAILY [facility] Ephedrine Sulfate (Ephedrine Sulfate) Confirm Administered Dose 100 mg .ROUTE .STK-MED ONE Stop: 07/09/16 07:16 Famotidine (Pepcid) 40 mg IVPUSH ONARRIVE [facility] Stop: 07/09/16 12:01 Last Admin: 07/09/16 07:28 Dose: 40 mg Fentanyl (Sublimaze) Confirm Administered Dose 100 mcg .ROUTE .STK-MED ONE Stop: 07/09/16 07:15 Fentanyl (Sublimaze) Confirm Administered Dose 100 mcg .ROUTE .STK-MED ONE Stop: 07/09/16 07:16 Fentanyl (Sublimaze) 50 mcg IVPUSH Q5M PRN PRN Reason: Pain (severe 7-10) Stop: 07/10/16 09:42 Last Admin: 07/09/16 11:18 Dose: 50 mcg Furosemide (Lasix) 80 mg PO BID [facility] Last Admin: 07/09/16 20:38 Dose: 80 mg Hydromorphone HCl (Dilaudid) 0.5 - 1 mg IVPUSH Q3H PRN PRN Reason: Pain Last Admin: 07/10/16 11:28 Dose: 1 mg Hydromorphone HCl (Dilaudid) 0.5 - 1 mg IVPUSH Q3H PRN PRN Reason: Pain Last Admin: 07/11/16 17:53 Dose: 1 mg Acetaminophen 1,000 mg/ Premix 100 mls @ 400 mls/hr IV ONARRIVE [facility] Stop: 07/09/16 12:01 Ropivacaine 49.25 ml/Ketorolac Tromethamine 30 mg/Epinephrine HCl 0.5 mg/ Clonidine HCl 80 mcg/ Sodium Chloride 100 mls @ 50 mls/min INJECT ASDIRECTED [facility] Stop: 07/09/16 12:01 Lactated Ringer's (Ringers, Lactated) 1,000 mls @ 100 mls/hr IV ASDIRECTED [facility] Last Admin: 07/09/16 07:25 Dose: 100 mls/hr Tranexamic Acid 4,000 mg/ (Sodium Chloride) 140 mls @ 600 mls/hr IV ASDIRECTED [facility] Stop: 07/09/16 12:01 Cefazolin Sodium/Dextrose 2 gm (/ Premix) 50 mls @ 100 mls/hr IV ONCALL [facility] Stop: 07/09/16 12:01 Dextrose/Water (Dextrose 5% In Water) 500 mls @ 75 mls/hr IV ASDIRECTED [facility] Last Admin: 07/09/16 07:26 Dose: 75 mls/hr Acetaminophen (Ofirmev) 1,000 mls @ 4,000 mls/hr IV ONARRIVE [facility] Stop: 07/09/16 12:01 Last Admin: 07/09/16 07:27 Dose: 4,000 mls/hr Cefazolin Sodium/Dextrose 2 gm (/ Premix) 50 mls @ 100 mls/hr IV Q8HR [facility] Stop: 07/09/16 22:29 Last Infusion: 07/09/16 17:28 Dose: Infused Cefazolin Sodium/Dextrose 2 gm (/ Premix) 50 mls @ 100 mls/hr IV Q8HR [facility] Stop: 07/10/16 03:29 Last Admin: 07/10/16 05:49 Dose: Not Given Ketorolac Tromethamine (Toradol) 15 mg IVPUSH ONARRIVE [facility] Last Admin: 07/09/16 07:28 Dose: 15 mg Ketorolac Tromethamine (Toradol) 15 mg IVPUSH Q6H [facility] Stop: 07/10/16 03:01 Lidocaine (Xylocaine-Mpf 2%) Confirm Administered Dose 10 ml .ROUTE .STK-MED ONE Stop: 07/09/16 07:15 Lidocaine (Xylocaine-Mpf 2%) Confirm Administered Dose 5 ml .ROUTE .STK-MED ONE Stop: 07/09/16 07:19 Lidocaine HCl (Xylocaine 1%) Confirm Administered Dose 50 ml .ROUTE .STK-MED ONE Stop: 07/09/16 06:49 Losartan Potassium (Cozaar) 100 mg PO DAILY [facility] Midazolam HCl (Versed 1 Mg/Ml) Confirm Administered Dose 2 mg .ROUTE .STK-MED ONE Stop: 07/09/16 07:15 Ondansetron HCl (Zofran) Confirm Administered Dose 4 mg .ROUTE .STK-MED ONE Stop: 07/09/16 07:16 Oxycodone HCl (Oxycontin) 10 mg PO ONARRIVE [facility] Stop: 07/09/16 12:01 Last Admin: 07/09/16 07:27 Dose: 10 mg Oxycodone HCl (Oxycodone) 5 - 10 mg PO Q4H PRN PRN Reason: Pain Last Admin: 07/11/16 16:26 Dose: 10 mg Oxycodone HCl (Oxycontin) 10 mg PO Q12HR [facility] Last Admin: 07/11/16 22:21 Dose: Not Given Phenylephrine HCl (Alexis-Synephrine) Confirm Administered Dose 10 mg .ROUTE .STK- MED ONE Stop: 07/09/16 08:53 Potassium Chloride (Klor-Con M20) 20 meq PO DAILY [facility] Propofol (Diprivan 20 Ml) Confirm Administered Dose 400 mg .ROUTE .STK-MED ONE Stop: 07/09/16 07:15 Propofol (Diprivan 20 Ml) Confirm Administered Dose 200 mg .ROUTE .STK-MED ONE Stop: 07/09/16 07:19 Succinylcholine Chloride (Succinylcholine In Ns Pf) Confirm Administered Dose 200 mg .ROUTE .STK-MED ONE Stop: 07/09/16 07:17 Tranexamic Acid (Cyklokapron) Confirm Administered Dose 4,000 mg .ROUTE .STK- MED ONE Stop: 07/09/16 07:12 - Exam General: alert, cooperative, other (confused; myoclonic jerks mainly shoulders and torso; some rigidity UE's ). No: obtunded Lungs: Clear to auscultation Cardiovascular: Regular Rate, Regular Rhythm Abdomen: soft, no tenderness Extremities: no edema Consult PN Assessment/Plan Procedures: Procedures ASSAY OF IRON (02/21/15) CHEST X-RAY 2VW FRONTAL&LATL (04/30/16) COMPLETE CBC AUTOMATED (12/07/14) COMPLETE CBC W/AUTO DIFF WBC (06/25/16) COMPREHEN METABOLIC PANEL (06/25/16) ELECTROCARDIOGRAM TRACING (04/30/16) GLYCOSYLATED HEMOGLOBIN TEST (06/08/16) LIPID PANEL (04/30/16) MEDICAL NUTRITION INDIV IN (01/20/15) MRI JNT OF LWR EXTRE W/O DYE (04/24/16) OFFICE/OUTPATIENT VISIT EST (01/17/15) OFFICE/OUTPATIENT VISIT NEW (12/09/14) PROTHROMBIN TIME (06/25/16) ROUTINE VENIPUNCTURE (06/25/16) THROMBOPLASTIN TIME PARTIAL (06/25/16) TTE W/DOPPLER COMPLETE (12/31/14) URINALYSIS AUTO W/SCOPE (06/25/16) X-RAY EXAM KNEE 4 OR MORE (03/29/16) (1) Myoclonic jerking SNOMED Code(s): 65575066, 244994144 Code(s): G25.3 - MYOCLONUS Current Visit: Yes (2) Medication side effect SNOMED Code(s): 86126192 Code(s): T88.7XXA - UNSP ADVERSE EFFECT OF DRUG OR MEDICAMENT, INIT ENCNTR Current Visit: Yes (3) A-fib SNOMED Code(s): 42070959 Code(s): I48.91 - UNSPECIFIED ATRIAL FIBRILLATION Current Visit: Yes (4) LOUISE (acute kidney injury) SNOMED Code(s): 68692143 Code(s): N17.9 - ACUTE KIDNEY FAILURE, UNSPECIFIED Current Visit: Yes (5) DM type 2 (diabetes mellitus, type 2) SNOMED Code(s): 30538340 Code(s): E11.9 - TYPE 2 DIABETES MELLITUS WITHOUT COMPLICATIONS Current Visit: Yes Qualifiers: Diabetes mellitus complication status: without complication Diabetes mellitus retirement insulin use: with intermediate frame tender use Qualified Code(s): E11.9 - Type 2 diabetes mellitus without complications; Z79.4 - FDC (current) use of insulin (6) HTN (hypertension) SNOMED Code(s): 28630112 Code(s): I10 - ESSENTIAL (PRIMARY) HYPERTENSION Current Visit: Yes Qualifiers: Hypertension type: essential hypertension Qualified Code(s): I10 - Essential (primary) hypertension (7) Morbid obesity with BMI of 40.0-44.9, adult SNOMED Code(s): 593884309 Code(s): E66.01 - MORBID (SEVERE) OBESITY DUE TO EXCESS CALORIES; Z68.41 - BODY MASS INDEX (BMI) 40.0-44.9, ADULT Current Visit: Yes (8) S/P total knee arthroplasty SNOMED Code(s): 1384398689644, 964292365, 2599056939585 Code(s): Z96.659 - PRESENCE OF UNSPECIFIED ARTIFICIAL KNEE JOINT Current Visit: Yes Qualifiers: Laterality: right Qualified Code(s): Z96.651 - Presence of right artificial knee joint Problem List Initiated/Reviewed/Updated: Yes My Orders last 24 hours: My Active Orders 07/11/16 23:00 Ketorolac [Toradol] 30 mg IVPUSH Q8H Plan: dilaudid is metabolized to [id number] which does not have analgesic effects but can cause excitatory neurotoxic effects such as myoclonus. Oxycodone has also been associated with myoclonus on occasion. I suspect that his confusion and myoclonus are the results of his opioids. Will hold dilaudid and oxycodone and will give a trial of scheduled toradol If doing well, discharge still may be permissible tomorrow, July 12, 2016 Hitesh Christopher MD
[2016-07-12] MEDS ORDERED: Metoprolol Succinate 50 MG Tab.ER PO ONE (00:18)
[2016-07-12] MEDS: Ketorolac 15 MG/ML SDV IVPUSH SCH ×2 (00:36→05:13)
[2016-07-12] MEDS: Acetaminophen 500 MG Tab PO SCH ×4 (02:05→20:57)
--- NOTE | 2016-07-12 08:04 | PCM.SURGPN ---
<Arlin Pierre - Last Filed: 07/12/16 08:11> - General Info Date of Service: 07/12/16 Date of Surgery/Procedure: 07/09/16 POD#: 3 Functional Status: Reports: pain controlled, tolerating diet. Denies: ambulating (Refuses to ambulate due to pain) - Review of Systems General: Reports: Fever (Fever reported last night, 38 C at 0:00. No fever this AM.) HEENT: Reports: no symptoms Pulmonary: Reports: shortness of breath (Had SOB prior to surgery. Patient states SOB increased due to pain.) Cardiovascular: Reports: No Symptoms Gastrointestinal: Reports: No symptoms Genitourinary: Reports: no symptoms Musculoskeletal: Reports: leg pain, joint pain, joint swelling Neurological: Reports: No Symptoms Psychiatric: Reports: no symptoms - Patient Data Vitals - most recent: Last Vital Signs Temp 37.0 C 07/12/16 07:49 Pulse 85 07/12/16 07:49 Resp 18 07/12/16 07:49 BP 109/65 07/12/16 07:49 Pulse Ox 90 L 07/12/16 07:49 Weight - most recent: 139.253 kg I&O - last 24 hours: Intake & Output 07/11/16 07/12/16 07/12/16 22:59 06:59 14:59 Intake Total 800 700 Output Total 1100 1640 Balance -300 -940 Lab Results last 24 hrs: Laboratory Results - last 24 hr 07/11/16 07/11/16 07/11/16 Range/Units 11:12 15:56 21:05 Hgb (13.0-17.0) g/dL Hct (38.0-50.0) % Sodium (136-146) mmol/L Potassium (3.5-5.1) mmol/L Chloride (98-110) mmol/L Carbon Dioxide (21-31) mmol/L BUN (6.0-23.0) mg/dL Creatinine (0.6-1.5) mg/dL Est Cr Clr Drug Dosing mL/min Estimated GFR (MDRD) ml/min Glucose (60-110) mg/dL POC Glucose 154 H 149 H 149 H (60-110) mg/dL Calcium (8.8-10.8) mg/dL Magnesium (1.5-2.3) mEq/L 07/12/16 07/12/16 07/12/16 Range/Units 04:17 04:17 06:23 Hgb 11.4 L (13.0-17.0) g/dL Hct 36.6 L (38.0-50.0) % Sodium 136 (136-146) mmol/L Potassium 5.3 H (3.5-5.1) mmol/L Chloride 104 (98-110) mmol/L Carbon Dioxide 24 (21-31) mmol/L BUN 47 H (6.0-23.0) mg/dL Creatinine 2.1 H (0.6-1.5) mg/dL Est Cr Clr Drug Dosing 30.98 mL/min Estimated GFR (MDRD) 30.9 ml/min Glucose 138 H (60-110) mg/dL POC Glucose 127 H (60-110) mg/dL Calcium 8.4 L (8.8-10.8) mg/dL Magnesium 2.3 (1.5-2.3) mEq/L Med Orders - Current: Current Medications Acetaminophen (Tylenol Extra Strength) 1,000 mg PO Q6H [facility] Last Admin: 07/12/16 02:05 Dose: 1,000 mg Al Hydroxide/Mg Hydroxide (Mag-Al Plus) 30 ml PO Q4H PRN PRN Reason: indigestion Aspirin (Aspirin) 325 mg PO BID [facility] Last Admin: 07/11/16 20:49 Dose: 325 mg Bisacodyl (Dulcolax) 10 mg RECTAL DAILY PRN PRN Reason: Constipation Diphenhydramine HCl (Benadryl) 25 - 50 mg PO Q6H PRN PRN Reason: Itching Docusate Sodium (Colace) 100 mg PO BID [facility] Last Admin: 07/11/16 20:50 Dose: 100 mg Furosemide (Lasix) 80 mg PO BIDDIURETIC [facility] Last Admin: 07/11/16 14:51 Dose: 80 mg Insulin Aspart (Novolog) 0 unit SUBCUT TIDAC [facility] PRN Reason: Protocol Last Admin: 07/11/16 17:00 Dose: Not Given Insulin Detemir (Levemir) 40 unit SUBCUT BEDTIME [facility] Last Admin: 07/11/16 21:08 Dose: 40 units Ketorolac Tromethamine (Toradol) 15 mg IVPUSH Q6H [facility] Stop: 07/17/16 00:01 Last Admin: 07/12/16 05:13 Dose: 15 mg Metoprolol Succinate (Toprol Xl) 50 mg PO DAILY [facility] Ondansetron HCl (Zofran) 4 mg IV Q6HR PRN PRN Reason: NAUSEA/VOMITING Last Admin: 07/11/16 08:28 Dose: 4 mg Oxybutynin Chloride (Oxybutynin) 5 mg PO BEDTIME [facility] Last Admin: 07/11/16 20:50 Dose: 5 mg Scopolamine (Transderm-Scop) 1.5 mg TRDERM ONARRIVE [facility] Last Admin: 07/09/16 07:27 Dose: 1.5 mg Discontinued Medications Celecoxib (Celebrex) 200 mg PO DAILY [facility] Ephedrine Sulfate (Ephedrine Sulfate) Confirm Administered Dose 100 mg .ROUTE .STK-MED ONE Stop: 07/09/16 07:16 Famotidine (Pepcid) 40 mg IVPUSH ONARRIVE [facility] Stop: 07/09/16 12:01 Last Admin: 07/09/16 07:28 Dose: 40 mg Fentanyl (Sublimaze) Confirm Administered Dose 100 mcg .ROUTE .STK-MED ONE Stop: 07/09/16 07:15 Fentanyl (Sublimaze) Confirm Administered Dose 100 mcg .ROUTE .STK-MED ONE Stop: 07/09/16 07:16 Fentanyl (Sublimaze) 50 mcg IVPUSH Q5M PRN PRN Reason: Pain (severe 7-10) Stop: 07/10/16 09:42 Last Admin: 07/09/16 11:18 Dose: 50 mcg Furosemide (Lasix) 80 mg PO BID [facility] Last Admin: 07/09/16 20:38 Dose: 80 mg Hydromorphone HCl (Dilaudid) 0.5 - 1 mg IVPUSH Q3H PRN PRN Reason: Pain Last Admin: 07/10/16 11:28 Dose: 1 mg Hydromorphone HCl (Dilaudid) 0.5 - 1 mg IVPUSH Q3H PRN PRN Reason: Pain Last Admin: 07/11/16 17:53 Dose: 1 mg Acetaminophen 1,000 mg/ Premix 100 mls @ 400 mls/hr IV ONARRIVE [facility] Stop: 07/09/16 12:01 Ropivacaine 49.25 ml/Ketorolac Tromethamine 30 mg/Epinephrine HCl 0.5 mg/ Clonidine HCl 80 mcg/ Sodium Chloride 100 mls @ 50 mls/min INJECT ASDIRECTED [facility] Stop: 07/09/16 12:01 Lactated Ringer's (Ringers, Lactated) 1,000 mls @ 100 mls/hr IV ASDIRECTED [facility] Last Admin: 07/09/16 07:25 Dose: 100 mls/hr Tranexamic Acid 4,000 mg/ (Sodium Chloride) 140 mls @ 600 mls/hr IV ASDIRECTED [facility] Stop: 07/09/16 12:01 Cefazolin Sodium/Dextrose 2 gm (/ Premix) 50 mls @ 100 mls/hr IV ONCALL [facility] Stop: 07/09/16 12:01 Dextrose/Water (Dextrose 5% In Water) 500 mls @ 75 mls/hr IV ASDIRECTED [facility] Last Admin: 07/09/16 07:26 Dose: 75 mls/hr Acetaminophen (Ofirmev) 1,000 mls @ 4,000 mls/hr IV ONARRIVE [facility] Stop: 07/09/16 12:01 Last Admin: 07/09/16 07:27 Dose: 4,000 mls/hr Cefazolin Sodium/Dextrose 2 gm (/ Premix) 50 mls @ 100 mls/hr IV Q8HR [facility] Stop: 07/09/16 22:29 Last Infusion: 07/09/16 17:28 Dose: Infused Cefazolin Sodium/Dextrose 2 gm (/ Premix) 50 mls @ 100 mls/hr IV Q8HR [facility] Stop: 07/10/16 03:29 Last Admin: 07/10/16 05:49 Dose: Not Given Ketorolac Tromethamine (Toradol) 15 mg IVPUSH ONARRIVE [facility] Last Admin: 07/09/16 07:28 Dose: 15 mg Ketorolac Tromethamine (Toradol) 15 mg IVPUSH Q6H [facility] Stop: 07/10/16 03:01 Lidocaine (Xylocaine-Mpf 2%) Confirm Administered Dose 10 ml .ROUTE .STK-MED ONE Stop: 07/09/16 07:15 Lidocaine (Xylocaine-Mpf 2%) Confirm Administered Dose 5 ml .ROUTE .STK-MED ONE Stop: 07/09/16 07:19 Lidocaine HCl (Xylocaine 1%) Confirm Administered Dose 50 ml .ROUTE .STK-MED ONE Stop: 07/09/16 06:49 Losartan Potassium (Cozaar) 100 mg PO DAILY [facility] Metoprolol Succinate (Toprol Xl) 50 mg PO ONETIME ONE Stop: 07/12/16 00:19 Last Admin: 07/12/16 00:39 Dose: 50 mg Midazolam HCl (Versed 1 Mg/Ml) Confirm Administered Dose 2 mg .ROUTE .STK-MED ONE Stop: 07/09/16 07:15 Ondansetron HCl (Zofran) Confirm Administered Dose 4 mg .ROUTE .STK-MED ONE Stop: 07/09/16 07:16 Oxycodone HCl (Oxycontin) 10 mg PO ONARRIVE [facility] Stop: 07/09/16 12:01 Last Admin: 07/09/16 07:27 Dose: 10 mg Oxycodone HCl (Oxycodone) 5 - 10 mg PO Q4H PRN PRN Reason: Pain Last Admin: 07/11/16 16:26 Dose: 10 mg Oxycodone HCl (Oxycontin) 10 mg PO Q12HR [facility] Last Admin: 07/11/16 22:21 Dose: Not Given Phenylephrine HCl (Alexis-Synephrine) Confirm Administered Dose 10 mg .ROUTE .STK- MED ONE Stop: 07/09/16 08:53 Potassium Chloride (Klor-Con M20) 20 meq PO DAILY [facility] Propofol (Diprivan 20 Ml) Confirm Administered Dose 400 mg .ROUTE .STK-MED ONE Stop: 07/09/16 07:15 Propofol (Diprivan 20 Ml) Confirm Administered Dose 200 mg .ROUTE .STK-MED ONE Stop: 07/09/16 07:19 Succinylcholine Chloride (Succinylcholine In Ns Pf) Confirm Administered Dose 200 mg .ROUTE .STK-MED ONE Stop: 07/09/16 07:17 Tranexamic Acid (Cyklokapron) Confirm Administered Dose 4,000 mg .ROUTE .STK- MED ONE Stop: 07/09/16 07:12 - Exam Wound/Incisions: dressing dry and intact General: alert, oriented HEENT: Pupils equal, Pupils reactive Lungs: Normal respiratory effort Cardiovascular: Regular Rate Extremities: other (Anterior tibialis, extensor hallucis longus and gastrocnemius strength +5/5 bilaterally. Sensation intact. Dorsalis pedis and posterior tibial pulses +2 bilaterally. ). No: edema Neurological: no new focal deficit Psy/Mental Status: alert, normal affect, normal mood - Problem List Review Problem List Initiated/Reviewed/Updated: Yes - My Orders Last 24 Hours: Active Orders 24 hr Category Date Time Status Insert [place] Catheter [Insert Urinary Catheter] [OM.PC] Care 07/11/16 16:45 Ordered Q24H Urinary Catheter Assessment [RC] ASDIRECTED Care 07/11/16 16:34 Active URINALYSIS W/MICROSCOPIC [UA W/MICROSCOPIC] [URIN] Lab 07/12/16 07:07 Uncollected Routine Furosemide [Lasix] Med 07/11/16 10:30 Active 80 mg PO BIDDIURETIC Ketorolac [Toradol] Med 07/12/16 00:00 Active 15 mg IVPUSH Q6H Metoprolol Succinate [Toprol XL] Med 07/12/16 09:00 Active 50 mg PO DAILY Medication Orders Acetaminophen (Tylenol Extra Strength) 1,000 mg PO Q6H [facility] Last Admin: 07/12/16 02:05 Dose: 1,000 mg Admin: 07/11/16 20:45 Dose: 1,000 mg Admin: 07/11/16 14:04 Dose: 1,000 mg Admin: 07/11/16 08:27 Dose: 1,000 mg Admin: 07/11/16 02:33 Dose: 1,000 mg Admin: 07/10/16 20:10 Dose: 1,000 mg Admin: 07/10/16 15:03 Dose: 1,000 mg Admin: 07/10/16 08:37 Dose: 1,000 mg Admin: 07/10/16 05:59 Dose: Admin: 07/09/16 20:37 Dose: 1,000 mg Admin: 07/09/16 13:50 Dose: 1,000 mg Al Hydroxide/Mg Hydroxide (Mag-Al Plus) 30 ml PO Q4H PRN PRN Reason: indigestion Aspirin (Aspirin) 325 mg PO BID [facility] Last Admin: 07/11/16 20:49 Dose: 325 mg Admin: 07/11/16 08:27 Dose: 325 mg Admin: 07/10/16 20:09 Dose: 325 mg Admin: 07/10/16 08:39 Dose: 325 mg Bisacodyl (Dulcolax) 10 mg RECTAL DAILY PRN PRN Reason: Constipation Diphenhydramine HCl (Benadryl) 25 - 50 mg PO Q6H PRN PRN Reason: Itching Docusate Sodium (Colace) 100 mg PO BID [facility] Last Admin: 07/11/16 20:50 Dose: 100 mg Admin: 07/11/16 08:27 Dose: 100 mg Admin: 07/10/16 20:11 Dose: 100 mg Admin: 07/10/16 08:39 Dose: 100 mg Admin: 07/09/16 20:38 Dose: 100 mg Furosemide (Lasix) 80 mg PO BIDDIURETIC [facility] Last Admin: 07/11/16 14:51 Dose: 80 mg Admin: 07/11/16 11:21 Dose: 80 mg Insulin Aspart (Novolog) 0 unit SUBCUT TIDAC [facility] PRN Reason: Protocol Last Admin: 07/11/16 17:00 Dose: Not Given Admin: 07/11/16 11:34 Dose: 2 units Admin: 07/11/16 07:14 Dose: 2 units Admin: 07/10/16 16:47 Dose: Not Given Admin: 07/10/16 11:32 Dose: 2 units Admin: 07/10/16 06:30 Dose: Not Given Admin: 07/09/16 17:30 Dose: Not Given Insulin Detemir (Levemir) 40 unit SUBCUT BEDTIME [facility] Last Admin: 07/11/16 21:08 Dose: 40 units Admin: 07/10/16 20:11 Dose: 40 units Admin: 07/09/16 21:14 Dose: 40 units Ketorolac Tromethamine (Toradol) 15 mg IVPUSH Q6H [facility] Stop: 07/17/16 00:01 Last Admin: 07/12/16 05:13 Dose: 15 mg Admin: 07/12/16 00:36 Dose: 15 mg Metoprolol Succinate (Toprol Xl) 50 mg PO DAILY [facility] Ondansetron HCl (Zofran) 4 mg IV Q6HR PRN PRN Reason: NAUSEA/VOMITING Last Admin: 07/11/16 08:28 Dose: 4 mg Oxybutynin Chloride (Oxybutynin) 5 mg PO BEDTIME [facility] Last Admin: 07/11/16 20:50 Dose: 5 mg Admin: 07/10/16 20:11 Dose: 5 mg Admin: 07/09/16 20:38 Dose: 5 mg Scopolamine (Transderm-Scop) 1.5 mg TRDER ONARRIVE [facility] Last Admin: 07/09/16 07:27 Dose: 1.5 mg - Assessment Assessment (Free Text/Narrative):: Patient up to chair this morning Supplemental oxygen via nasal cannula Tolerating diet Urinary catheter in place Pain controlled this AM Hgb 11.4 UO 2740 mL Afebrile this AM - Plan Plan (Free Text/Narrative):: Did have seizure activity last night, hospitalist consulted Continue pain management via Tylenol- Oxycodone, Oxycontin and Dilaudid D/C last night by hospitalist Patient is oriented this AM Patient had fever of 38.4 C last night, did resolve with dose of Tylenol. No fever this AM. UA ordered Continue physical therapy, encourage ambulation Encourage PO fluid intake and incentive spirometry D/C to [place] today or tomorrow <Angelique Rankin - Last Filed: 07/12/16 13:20> - Patient Data Vitals - most recent: Last Vital Signs Temp 98.6 F 07/12/16 11:00 Pulse 88 07/12/16 11:00 Resp 18 07/12/16 11:00 BP 102/57 L 07/12/16 11:00 Pulse Ox 92 L 07/12/16 11:00 I&O - last 24 hours: Intake & Output 07/11/16 07/12/16 07/12/16 22:59 06:59 14:59 Intake Total 800 700 Output Total 1100 1640 Balance -300 -940 Lab Results last 24 hrs: Laboratory Results - last 24 hr 07/11/16 07/11/16 07/12/16 Range/Units 15:56 21:05 04:17 WBC (4.0-11.0) K/uL RBC (4.50-5.90) M/uL Hgb 11.4 L (13.0-17.0) g/dL Hct 36.6 L (38.0-50.0) % MCV (80.0-98.0) fL MCH (27.0-32.0) pg MCHC (31.0-37.0) g/dL RDW Std Deviation (28.0-62.0) fl RDW Coeff of [place] (11.0-15.0) % Plt Count (150-400) K/uL MPV (7.40-12.00) fL Add Manual Diff Neutrophils % (Manual) (48.0-80.0) % Band Neutrophils % % Lymphocytes % (Manual) (16.0-40.0) % Monocytes % (Manual) (0.0-15.0) % Eosinophils % (Manual) (0.0-7.0) % Nucleated RBC % /100WBC Absolute Seg Neuts Band Neutrophils # Lymphocytes # (Manual) Monocytes # (Manual) Eosinophils # (Manual) Nucleated RBCs # K/uL Sodium (136-146) mmol/L Potassium (3.5-5.1) mmol/L Chloride (98-110) mmol/L Carbon Dioxide (21-31) mmol/L BUN (6.0-23.0) mg/dL Creatinine (0.6-1.5) mg/dL Est Cr Clr Drug Dosing mL/min Estimated GFR (MDRD) ml/min Glucose (60-110) mg/dL POC Glucose 149 H 149 H (60-110) mg/dL Calcium (8.8-10.8) mg/dL Magnesium (1.5-2.3) mEq/L Urine Color Urine Appearance Urine pH (5.0-8.0) Ur Specific [place] (1.001-1.035) Urine Protein (NEGATIVE) mg/dL Urine Glucose (UA) (NEGATIVE) mg/dL Urine Ketones (NEGATIVE) mg/dL Urine Occult Blood (NEGATIVE) Urine Nitrite (NEGATIVE) Urine Bilirubin (NEGATIVE) Urine Ictotest Urine Urobilinogen (<2.0) EU/dL Ur Leukocyte Esterase (NEGATIVE) Urine RBC (0-2/HPF) Urine WBC (0-5/HPF) Ur Epithelial Cells (NONE-FEW) Urine Bacteria (NEGATIVE) 07/12/16 07/12/16 07/12/16 Range/Units 04:17 04:17 06:23 WBC 11.12 H (4.0-11.0) K/uL RBC 3.87 L (4.50-5.90) M/uL Hgb 11.3 L (13.0-17.0) g/dL Hct 36.7 L (38.0-50.0) % MCV 94.8 (80.0-98.0) fL MCH 29.2 (27.0-32.0) pg MCHC 30.8 L (31.0-37.0) g/dL RDW Std Deviation 55.6 (28.0-62.0) fl RDW Coeff of [place] 16 H (11.0-15.0) % Plt Count 190 (150-400) K/uL MPV 10.20 (7.40-12.00) fL Add Manual Diff YES Neutrophils % (Manual) 69 (48.0-80.0) % Band Neutrophils % 4 % Lymphocytes % (Manual) 20 (16.0-40.0) % Monocytes % (Manual) 4 (0.0-15.0) % Eosinophils % (Manual) 3 (0.0-7.0) % Nucleated RBC % 0.0 /100WBC Absolute Seg Neuts 7.7 Band Neutrophils # 0.4 Lymphocytes # (Manual) 2.2 Monocytes # (Manual) 0.4 Eosinophils # (Manual) 0.3 Nucleated RBCs # 0 K/uL Sodium 136 (136-146) mmol/L Potassium 5.3 H (3.5-5.1) mmol/L Chloride 104 (98-110) mmol/L Carbon Dioxide 24 (21-31) mmol/L BUN 47 H (6.0-23.0) mg/dL Creatinine 2.1 H (0.6-1.5) mg/dL Est Cr Clr Drug Dosing 30.98 mL/min Estimated GFR (MDRD) 30.9 ml/min Glucose 138 H (60-110) mg/dL POC Glucose 127 H (60-110) mg/dL Calcium 8.4 L (8.8-10.8) mg/dL Magnesium 2.3 (1.5-2.3) mEq/L Urine Color Urine Appearance Urine pH (5.0-8.0) Ur Specific [place] (1.001-1.035) Urine Protein (NEGATIVE) mg/dL Urine Glucose (UA) (NEGATIVE) mg/dL Urine Ketones (NEGATIVE) mg/dL Urine Occult Blood (NEGATIVE) Urine Nitrite (NEGATIVE) Urine Bilirubin (NEGATIVE) Urine Ictotest Urine Urobilinogen (<2.0) EU/dL Ur Leukocyte Esterase (NEGATIVE) Urine RBC (0-2/HPF) Urine WBC (0-5/HPF) Ur Epithelial Cells (NONE-FEW) Urine Bacteria (NEGATIVE) 07/12/16 07/12/16 Range/Units 07:55 11:31 WBC (4.0-11.0) K/uL RBC (4.50-5.90) M/uL Hgb (13.0-17.0) g/dL Hct (38.0-50.0) % MCV (80.0-98.0) fL MCH (27.0-32.0) pg MCHC (31.0-37.0) g/dL RDW Std Deviation (28.0-62.0) fl RDW Coeff of [place] (11.0-15.0) % Plt Count (150-400) K/uL MPV (7.40-12.00) fL Add Manual Diff Neutrophils % (Manual) (48.0-80.0) % Band Neutrophils % % Lymphocytes % (Manual) (16.0-40.0) % Monocytes % (Manual) (0.0-15.0) % Eosinophils % (Manual) (0.0-7.0) % Nucleated RBC % /100WBC Absolute Seg Neuts Band Neutrophils # Lymphocytes # (Manual) Monocytes # (Manual) Eosinophils # (Manual) Nucleated RBCs # K/uL Sodium (136-146) mmol/L Potassium (3.5-5.1) mmol/L Chloride (98-110) mmol/L Carbon Dioxide (21-31) mmol/L BUN (6.0-23.0) mg/dL Creatinine (0.6-1.5) mg/dL Est Cr Clr Drug Dosing mL/min Estimated GFR (MDRD) ml/min Glucose (60-110) mg/dL POC Glucose 135 H (60-110) mg/dL Calcium (8.8-10.8) mg/dL Magnesium (1.5-2.3) mEq/L Urine Color RED Urine Appearance SLT CLOUDY Urine pH 5.0 (5.0-8.0) Ur Specific [place] 1.025 (1.001-1.035) Urine Protein >=300 (NEGATIVE) mg/dL Urine Glucose (UA) NEGATIVE (NEGATIVE) mg/dL Urine Ketones TRACE H (NEGATIVE) mg/dL Urine Occult Blood LARGE H (NEGATIVE) Urine Nitrite POSITIVE H (NEGATIVE) Urine Bilirubin MODERATE H (NEGATIVE) Urine Ictotest NEGATIVE Urine Urobilinogen 1.0 (<2.0) EU/dL Ur Leukocyte Esterase TRACE (NEGATIVE) Urine RBC TOO NUMBEROUS TO CT (0-2/HPF) Urine WBC 0-3 (0-5/HPF) Ur Epithelial Cells RARE (NONE-FEW) Urine Bacteria 1+ H (NEGATIVE) Med Orders - Current: Current Medications Acetaminophen (Tylenol Extra Strength) 1,000 mg PO Q6H [facility] Last Admin: 07/12/16 08:04 Dose: 1,000 mg Al Hydroxide/Mg Hydroxide (Mag-Al Plus) 30 ml PO Q4H PRN PRN Reason: indigestion Aspirin (Aspirin) 325 mg PO BID [facility] Last Admin: 07/12/16 08:06 Dose: 325 mg Bisacodyl (Dulcolax) 10 mg RECTAL DAILY PRN PRN Reason: Constipation Diphenhydramine HCl (Benadryl) 25 - 50 mg PO Q6H PRN PRN Reason: Itching Docusate Sodium (Colace) 100 mg PO BID [facility] Last Admin: 07/12/16 08:05 Dose: 100 mg Sodium Chloride (Normal Saline) 1,000 mls @ 75 mls/hr IV ASDIRECTED [facility] Last Admin: 07/12/16 09:31 Dose: 75 mls/hr Ceftriaxone Sodium/Dextrose 1 (gm/ Premix) 50 mls @ 100 mls/hr IV Q24H [facility] Insulin Aspart (Novolog) 0 unit SUBCUT TIDAC [facility] PRN Reason: Protocol Last Admin: 07/12/16 12:26 Dose: Not Given Insulin Detemir (Levemir) 40 unit SUBCUT BEDTIME [facility] Last Admin: 07/11/16 21:08 Dose: 40 units Metoprolol Succinate (Toprol Xl) 50 mg PO DAILY [facility] Last Admin: 07/12/16 08:06 Dose: 50 mg Ondansetron HCl (Zofran) 4 mg IV Q6HR PRN PRN Reason: NAUSEA/VOMITING Last Admin: 07/11/16 08:28 Dose: 4 mg Oxybutynin Chloride (Oxybutynin) 5 mg PO BEDTIME [facility] Last Admin: 07/11/16 20:50 Dose: 5 mg Scopolamine (Transderm-Scop) 1.5 mg TRDERM ONARRIVE [facility] Last Admin: 07/09/16 07:27 Dose: 1.5 mg Discontinued Medications Celecoxib (Celebrex) 200 mg PO DAILY [facility] Ephedrine Sulfate (Ephedrine Sulfate) Confirm Administered Dose 100 mg .ROUTE .STK-MED ONE Stop: 07/09/16 07:16 Famotidine (Pepcid) 40 mg IVPUSH ONARRIVE [facility] Stop: 07/09/16 12:01 Last Admin: 07/09/16 07:28 Dose: 40 mg Fentanyl (Sublimaze) Confirm Administered Dose 100 mcg .ROUTE .STK-[facility] Stop: 07/09/16 07:15 Fentanyl (Sublimaze) Confirm Administered Dose 100 mcg .ROUTE .STK-MED ONE Stop: 07/09/16 07:16 Fentanyl (Sublimaze) 50 mcg IVPUSH Q5M PRN PRN Reason: Pain (severe 7-10) Stop: 07/10/16 09:42 Last Admin: 07/09/16 11:18 Dose: 50 mcg Furosemide (Lasix) 80 mg PO BID [facility] Last Admin: 07/09/16 20:38 Dose: 80 mg Furosemide (Lasix) 80 mg PO BIDDIURETIC [facility] Last Admin: 07/12/16 08:06 Dose: 80 mg Hydromorphone HCl (Dilaudid) 0.5 - 1 mg IVPUSH Q3H PRN PRN Reason: Pain Last Admin: 07/10/16 11:28 Dose: 1 mg Hydromorphone HCl (Dilaudid) 0.5 - 1 mg IVPUSH Q3H PRN PRN Reason: Pain Last Admin: 07/11/16 17:53 Dose: 1 mg Acetaminophen 1,000 mg/ Premix 100 mls @ 400 mls/hr IV ONARRIVE [facility] Stop: 07/09/16 12:01 Ropivacaine 49.25 ml/Ketorolac Tromethamine 30 mg/Epinephrine HCl 0.5 mg/ Clonidine HCl 80 mcg/ Sodium Chloride 100 mls @ 50 mls/min INJECT ASDIRECTED [facility] Stop: 07/09/16 12:01 Lactated Ringer's (Ringers, Lactated) 1,000 mls @ 100 mls/hr IV ASDIRECTED [facility] Last Admin: 07/09/16 07:25 Dose: 100 mls/hr Tranexamic Acid 4,000 mg/ (Sodium Chloride) 140 mls @ 600 mls/hr IV ASDIRECTED [facility] Stop: 07/09/16 12:01 Cefazolin Sodium/Dextrose 2 gm (/ Premix) 50 mls @ 100 mls/hr IV ONCALL [facility] Stop: 07/09/16 12:01 Dextrose/Water (Dextrose 5% In Water) 500 mls @ 75 mls/hr IV ASDIRECTED [facility] Last Admin: 07/09/16 07:26 Dose: 75 mls/hr Acetaminophen (Ofirmev) 1,000 mls @ 4,000 mls/hr IV ONARRIVE [facility] Stop: 07/09/16 12:01 Last Admin: 07/09/16 07:27 Dose: 4,000 mls/hr Cefazolin Sodium/Dextrose 2 gm (/ Premix) 50 mls @ 100 mls/hr IV Q8HR [facility] Stop: 07/09/16 22:29 Last Infusion: 07/09/16 17:28 Dose: Infused Cefazolin Sodium/Dextrose 2 gm (/ Premix) 50 mls @ 100 mls/hr IV Q8HR [facility] Stop: 07/10/16 03:29 Last Admin: 07/10/16 05:49 Dose: Not Given Ceftriaxone Sodium/Dextrose 1 (gm/ Premix) 50 mls @ 100 mls/hr IV ONETIME ONE Stop: 07/12/16 09:29 Last Admin: 07/12/16 09:31 Dose: 100 mls/hr Ketorolac Tromethamine (Toradol) 15 mg IVPUSH ONARRIVE [facility] Last Admin: 07/09/16 07:28 Dose: 15 mg Ketorolac Tromethamine (Toradol) 15 mg IVPUSH Q6H [facility] Stop: 07/10/16 03:01 Ketorolac Tromethamine (Toradol) 15 mg IVPUSH Q6H [facility] Stop: 07/17/16 00:01 Last Admin: 07/12/16 05:13 Dose: 15 mg Lidocaine (Xylocaine-Mpf 2%) Confirm Administered Dose 10 ml .ROUTE .STK-MED ONE Stop: 07/09/16 07:15 Lidocaine (Xylocaine-Mpf 2%) Confirm Administered Dose 5 ml .ROUTE .STK-MED ONE Stop: 07/09/16 07:19 Lidocaine HCl (Xylocaine 1%) Confirm Administered Dose 50 ml .ROUTE .STK-MED ONE Stop: 07/09/16 06:49 Losartan Potassium (Cozaar) 100 mg PO DAILY [facility] Metoprolol Succinate (Toprol Xl) 50 mg PO ONETIME ONE Stop: 07/12/16 00:19 Last Admin: 07/12/16 00:39 Dose: 50 mg Midazolam HCl (Versed 1 Mg/Ml) Confirm Administered Dose 2 mg .ROUTE .STK-MED ONE Stop: 07/09/16 07:15 Morphine Sulfate (Morphine) 4 mg IVPUSH Q4H PRN PRN Reason: moderate pain Ondansetron HCl (Zofran) Confirm Administered Dose 4 mg .ROUTE .STK-MED ONE Stop: 07/09/16 07:16 Oxycodone HCl (Oxycontin) 10 mg PO ONARRIVE [facility] Stop: 07/09/16 12:01 Last Admin: 07/09/16 07:27 Dose: 10 mg Oxycodone HCl (Oxycodone) 5 - 10 mg PO Q4H PRN PRN Reason: Pain Last Admin: 07/11/16 16:26 Dose: 10 mg Oxycodone HCl (Oxycontin) 10 mg PO Q12HR [facility] Last Admin: 07/11/16 22:21 Dose: Not Given Phenylephrine HCl (Alexis-Synephrine) Confirm Administered Dose 10 mg .ROUTE .STK- MED ONE Stop: 07/09/16 08:53 Potassium Chloride (Klor-Con M20) 20 meq PO DAILY [facility] Propofol (Diprivan 20 Ml) Confirm Administered Dose 400 mg .ROUTE .STK-MED ONE Stop: 07/09/16 07:15 Propofol (Diprivan 20 Ml) Confirm Administered Dose 200 mg .ROUTE .STK-MED ONE Stop: 07/09/16 07:19 Succinylcholine Chloride (Succinylcholine In Ns Pf) Confirm Administered Dose 200 mg .ROUTE .STK-MED ONE Stop: 07/09/16 07:17 Tranexamic Acid (Cyklokapron) Confirm Administered Dose 4,000 mg .ROUTE .STK- MED ONE Stop: 07/09/16 07:12 - My Orders Last 24 Hours: Active Orders 24 hr Category Date Time Status Insert [place] Catheter [Insert Urinary Catheter] [OM.PC] Care 07/11/16 16:45 Ordered Q24H Urinary Catheter Assessment [RC] ASDIRECTED Care 07/11/16 16:34 Active CULTURE URINE [RM] Routine Lab 07/12/16 07:55 Received Metoprolol Succinate [Toprol XL] Med 07/12/16 09:00 Active 50 mg PO DAILY Sodium Chloride 0.9% [Normal Saline] 1,000 ml Med 07/12/16 08:45 Active IV ASDIRECTED cefTRIAXone [Rocephin in Dextrose,Iso-Osm 1 GM/50 ML] 1 Med 07/13/16 09:00 Active gm Premix Bag 1 bag IV Q24H Medication Orders Acetaminophen (Tylenol Extra Strength) 1,000 mg PO Q6H [facility] Last Admin: 07/12/16 08:04 Dose: 1,000 mg Admin: 07/12/16 02:05 Dose: 1,000 mg Admin: 07/11/16 20:45 Dose: 1,000 mg Admin: 07/11/16 14:04 Dose: 1,000 mg Admin: 07/11/16 08:27 Dose: 1,000 mg Admin: 07/11/16 02:33 Dose: 1,000 mg Admin: 07/10/16 20:10 Dose: 1,000 mg Admin: 07/10/16 15:03 Dose: 1,000 mg Admin: 07/10/16 08:37 Dose: 1,000 mg Admin: 07/10/16 05:59 Dose: Admin: 07/09/16 20:37 Dose: 1,000 mg Admin: 07/09/16 13:50 Dose: 1,000 mg Al Hydroxide/Mg Hydroxide (Mag-Al Plus) 30 ml PO Q4H PRN PRN Reason: indigestion Aspirin (Aspirin) 325 mg PO BID [facility] Last Admin: 07/12/16 08:06 Dose: 325 mg Admin: 07/11/16 20:49 Dose: 325 mg Admin: 07/11/16 08:27 Dose: 325 mg Admin: 07/10/16 20:09 Dose: 325 mg Admin: 07/10/16 08:39 Dose: 325 mg Bisacodyl (Dulcolax) 10 mg RECTAL DAILY PRN PRN Reason: Constipation Diphenhydramine HCl (Benadryl) 25 - 50 mg PO Q6H PRN PRN Reason: Itching Docusate Sodium (Colace) 100 mg PO BID [facility] Last Admin: 07/12/16 08:05 Dose: 100 mg Admin: 07/11/16 20:50 Dose: 100 mg Admin: 07/11/16 08:27 Dose: 100 mg Admin: 07/10/16 20:11 Dose: 100 mg Admin: 07/10/16 08:39 Dose: 100 mg Admin: 07/09/16 20:38 Dose: 100 mg Sodium Chloride (Normal Saline) 1,000 mls @ 75 mls/hr IV ASDIRECTED [facility] Last Admin: 07/12/16 09:31 Dose: 75 mls/hr Ceftriaxone Sodium/Dextrose 1 (gm/ Premix) 50 mls @ 100 mls/hr IV Q24H [facility] Insulin Aspart (Novolog) 0 unit SUBCUT TIDAC [facility] PRN Reason: Protocol Last Admin: 07/12/16 12:26 Dose: Not Given Admin: 07/12/16 08:18 Dose: Not Given Admin: 07/11/16 17:00 Dose: Not Given Admin: 07/11/16 11:34 Dose: 2 units Admin: 07/11/16 07:14 Dose: 2 units Admin: 07/10/16 16:47 Dose: Not Given Admin: 07/10/16 11:32 Dose: 2 units Admin: 07/10/16 06:30 Dose: Not Given Admin: 07/09/16 17:30 Dose: Not Given Insulin Detemir (Levemir) 40 unit SUBCUT BEDTIME [facility] Last Admin: 07/11/16 21:08 Dose: 40 units Admin: 07/10/16 20:11 Dose: 40 units Admin: 07/09/16 21:14 Dose: 40 units Metoprolol Succinate (Toprol Xl) 50 mg PO DAILY [facility] Last Admin: 07/12/16 08:06 Dose: 50 mg Ondansetron HCl (Zofran) 4 mg IV Q6HR PRN PRN Reason: NAUSEA/VOMITING Last Admin: 07/11/16 08:28 Dose: 4 mg Oxybutynin Chloride (Oxybutynin) 5 mg PO BEDTIME [facility] Last Admin: 07/11/16 20:50 Dose: 5 mg Admin: 07/10/16 20:11 Dose: 5 mg Admin: 07/09/16 20:38 Dose: 5 mg Scopolamine (Transderm-Scop) 1.5 mg TRDERM ONARRIVE [facility] Last Admin: 07/09/16 07:27 Dose: 1.5 mg - Plan Plan (Free Text/Narrative):: 1300 Patient seen and examined. Sitting at edge of bed eating lunch. Denies pain at this time. Did better with morning PT, was able to ambulate further. PT here for afternoon therapy. Events from last evening noted. Narcotics discontinued, better now. Patient alert and oriented. Dressing dry/intact. NVI. 1. continue PT and ambulation 2. continue current pain management 3. appreciate hospitalist evaluation and management 4. await u/c--may need antibiotics 5. probable discharge to [place] tomorrow if ok with hospitalist--patient agrees with plan rrk
[2016-07-12] MEDS: Docusate Sodium 100 MG Cap PO SCH ×2 (08:05→20:59)
[2016-07-12] MEDS: Metoprolol Succinate 50 MG Tab.ER PO SCH (08:06)
[2016-07-12] MEDS: Aspirin 325 MG Tab PO SCH ×2 (08:06→21:01)
[2016-07-12] MEDS: Furosemide 80 MG Tab PO SCH (08:06)
[2016-07-12] MEDS: Insulin Aspart 100 Units/ML 3 ML Pen SUBCUT SCH ×3 (08:18→17:01)
[2016-07-12] MEDS ORDERED: Sodium Chloride 0.9% 1,000 ML IV SCH (08:45)
[2016-07-12] MEDS ORDERED: cefTRIAXone 1 GM in Premix Bag 1 BAG IV ONE (09:00)
--- NOTE | 2016-07-12 09:30 | PCM.PN ---
- Patient Data Vitals - most recent: Last Vital Signs Temp 37.0 C 07/12/16 07:49 Pulse 77 07/12/16 08:06 Resp 18 07/12/16 07:49 BP 109/65 07/12/16 08:06 Pulse Ox 90 L 07/12/16 07:49 Weight - most recent: 139.253 kg I&O - last 24 hours: Intake & Output 07/11/16 07/12/16 07/12/16 22:59 06:59 14:59 Intake Total 800 700 Output Total 1100 1640 Balance -300 -940 Lab Results last 24 hrs: Laboratory Results - last 24 hr 07/11/16 07/11/16 07/11/16 Range/Units 11:12 15:56 21:05 Hgb (13.0-17.0) g/dL Hct (38.0-50.0) % Sodium (136-146) mmol/L Potassium (3.5-5.1) mmol/L Chloride (98-110) mmol/L Carbon Dioxide (21-31) mmol/L BUN (6.0-23.0) mg/dL Creatinine (0.6-1.5) mg/dL Est Cr Clr Drug Dosing mL/min Estimated GFR (MDRD) ml/min Glucose (60-110) mg/dL POC Glucose 154 H 149 H 149 H (60-110) mg/dL Calcium (8.8-10.8) mg/dL Magnesium (1.5-2.3) mEq/L Urine Color Urine Appearance Urine pH (5.0-8.0) Ur Specific Organ (1.001-1.035) Urine Protein (NEGATIVE) mg/dL Urine Glucose (UA) (NEGATIVE) mg/dL Urine Ketones (NEGATIVE) mg/dL Urine Occult Blood (NEGATIVE) Urine Nitrite (NEGATIVE) Urine Bilirubin (NEGATIVE) Urine Ictotest Urine Urobilinogen (<2.0) EU/dL Ur Leukocyte Esterase (NEGATIVE) Urine RBC (0-2/HPF) Urine WBC (0-5/HPF) Ur Epithelial Cells (NONE-FEW) Urine Bacteria (NEGATIVE) 07/12/16 07/12/16 07/12/16 Range/Units 04:17 04:17 06:23 Hgb 11.4 L (13.0-17.0) g/dL Hct 36.6 L (38.0-50.0) % Sodium 136 (136-146) mmol/L Potassium 5.3 H (3.5-5.1) mmol/L Chloride 104 (98-110) mmol/L Carbon Dioxide 24 (21-31) mmol/L BUN 47 H (6.0-23.0) mg/dL Creatinine 2.1 H (0.6-1.5) mg/dL Est Cr Clr Drug Dosing 30.98 mL/min Estimated GFR (MDRD) 30.9 ml/min Glucose 138 H (60-110) mg/dL POC Glucose 127 H (60-110) mg/dL Calcium 8.4 L (8.8-10.8) mg/dL Magnesium 2.3 (1.5-2.3) mEq/L Urine Color Urine Appearance Urine pH (5.0-8.0) Ur Specific Organ (1.001-1.035) Urine Protein (NEGATIVE) mg/dL Urine Glucose (UA) (NEGATIVE) mg/dL Urine Ketones (NEGATIVE) mg/dL Urine Occult Blood (NEGATIVE) Urine Nitrite (NEGATIVE) Urine Bilirubin (NEGATIVE) Urine Ictotest Urine Urobilinogen (<2.0) EU/dL Ur Leukocyte Esterase (NEGATIVE) Urine RBC (0-2/HPF) Urine WBC (0-5/HPF) Ur Epithelial Cells (NONE-FEW) Urine Bacteria (NEGATIVE) 07/12/16 Range/Units 07:55 Hgb (13.0-17.0) g/dL Hct (38.0-50.0) % Sodium (136-146) mmol/L Potassium (3.5-5.1) mmol/L Chloride (98-110) mmol/L Carbon Dioxide (21-31) mmol/L BUN (6.0-23.0) mg/dL Creatinine (0.6-1.5) mg/dL Est Cr Clr Drug Dosing mL/min Estimated GFR (MDRD) ml/min Glucose (60-110) mg/dL POC Glucose (60-110) mg/dL Calcium (8.8-10.8) mg/dL Magnesium (1.5-2.3) mEq/L Urine Color RED Urine Appearance SLT CLOUDY Urine pH 5.0 (5.0-8.0) Ur Specific Organ 1.025 (1.001-1.035) Urine Protein >=300 (NEGATIVE) mg/dL Urine Glucose (UA) NEGATIVE (NEGATIVE) mg/dL Urine Ketones TRACE H (NEGATIVE) mg/dL Urine Occult Blood LARGE H (NEGATIVE) Urine Nitrite POSITIVE H (NEGATIVE) Urine Bilirubin MODERATE H (NEGATIVE) Urine Ictotest NEGATIVE Urine Urobilinogen 1.0 (<2.0) EU/dL Ur Leukocyte Esterase TRACE (NEGATIVE) Urine RBC TOO NUMBEROUS TO CT (0-2/HPF) Urine WBC 0-3 (0-5/HPF) Ur Epithelial Cells RARE (NONE-FEW) Urine Bacteria 1+ H (NEGATIVE) Med Orders - Current: Current Medications Acetaminophen (Tylenol Extra Strength) 1,000 mg PO Q6H [facility] Last Admin: 07/12/16 08:04 Dose: 1,000 mg Al Hydroxide/Mg Hydroxide (Mag-Al Plus) 30 ml PO Q4H PRN PRN Reason: indigestion Aspirin (Aspirin) 325 mg PO BID [facility] Last Admin: 07/12/16 08:06 Dose: 325 mg Bisacodyl (Dulcolax) 10 mg RECTAL DAILY PRN PRN Reason: Constipation Diphenhydramine HCl (Benadryl) 25 - 50 mg PO Q6H PRN PRN Reason: Itching Docusate Sodium (Colace) 100 mg PO BID [facility] Last Admin: 07/12/16 08:05 Dose: 100 mg Ceftriaxone Sodium/Dextrose 1 (gm/ Premix) 50 mls @ 100 mls/hr IV ONETIME ONE Stop: 07/12/16 09:29 Sodium Chloride (Normal Saline) 1,000 mls @ 75 mls/hr IV ASDIRECTED [facility] Insulin Aspart (Novolog) 0 unit SUBCUT TIDAC [facility] PRN Reason: Protocol Last Admin: 07/12/16 08:18 Dose: Not Given Insulin Detemir (Levemir) 40 unit SUBCUT BEDTIME [facility] Last Admin: 07/11/16 21:08 Dose: 40 units Metoprolol Succinate (Toprol Xl) 50 mg PO DAILY [facility] Last Admin: 07/12/16 08:06 Dose: 50 mg Ondansetron HCl (Zofran) 4 mg IV Q6HR PRN PRN Reason: NAUSEA/VOMITING Last Admin: 07/11/16 08:28 Dose: 4 mg Oxybutynin Chloride (Oxybutynin) 5 mg PO BEDTIME [facility] Last Admin: 07/11/16 20:50 Dose: 5 mg Scopolamine (Transderm-Scop) 1.5 mg TRDERM ONARRIVE [facility] Last Admin: 07/09/16 07:27 Dose: 1.5 mg Discontinued Medications Celecoxib (Celebrex) 200 mg PO DAILY [facility] Ephedrine Sulfate (Ephedrine Sulfate) Confirm Administered Dose 100 mg .ROUTE .STK-MED ONE Stop: 07/09/16 07:16 Famotidine (Pepcid) 40 mg IVPUSH ONARRIVE [facility] Stop: 07/09/16 12:01 Last Admin: 07/09/16 07:28 Dose: 40 mg Fentanyl (Sublimaze) Confirm Administered Dose 100 mcg .ROUTE .STK-MED ONE Stop: 07/09/16 07:15 Fentanyl (Sublimaze) Confirm Administered Dose 100 mcg .ROUTE .STK-MED ONE Stop: 07/09/16 07:16 Fentanyl (Sublimaze) 50 mcg IVPUSH Q5M PRN PRN Reason: Pain (severe 7-10) Stop: 07/10/16 09:42 Last Admin: 07/09/16 11:18 Dose: 50 mcg Furosemide (Lasix) 80 mg PO BID [facility] Last Admin: 07/09/16 20:38 Dose: 80 mg Furosemide (Lasix) 80 mg PO BIDDIURETIC [facility] Last Admin: 07/12/16 08:06 Dose: 80 mg Hydromorphone HCl (Dilaudid) 0.5 - 1 mg IVPUSH Q3H PRN PRN Reason: Pain Last Admin: 07/10/16 11:28 Dose: 1 mg Hydromorphone HCl (Dilaudid) 0.5 - 1 mg IVPUSH Q3H PRN PRN Reason: Pain Last Admin: 07/11/16 17:53 Dose: 1 mg Acetaminophen 1,000 mg/ Premix 100 mls @ 400 mls/hr IV ONARRIVE [facility] Stop: 07/09/16 12:01 Ropivacaine 49.25 ml/Ketorolac Tromethamine 30 mg/Epinephrine HCl 0.5 mg/ Clonidine HCl 80 mcg/ Sodium Chloride 100 mls @ 50 mls/min INJECT ASDIRECTED [facility] Stop: 07/09/16 12:01 Lactated Ringer's (Ringers, Lactated) 1,000 mls @ 100 mls/hr IV ASDIRECTED [facility] Last Admin: 07/09/16 07:25 Dose: 100 mls/hr Tranexamic Acid 4,000 mg/ (Sodium Chloride) 140 mls @ 600 mls/hr IV ASDIRECTED [facility] Stop: 07/09/16 12:01 Cefazolin Sodium/Dextrose 2 gm (/ Premix) 50 mls @ 100 mls/hr IV ONCALL [facility] Stop: 07/09/16 12:01 Dextrose/Water (Dextrose 5% In Water) 500 mls @ 75 mls/hr IV ASDIRECTED [facility] Last Admin: 07/09/16 07:26 Dose: 75 mls/hr Acetaminophen (Ofirmev) 1,000 mls @ 4,000 mls/hr IV ONARRIVE [facility] Stop: 07/09/16 12:01 Last Admin: 07/09/16 07:27 Dose: 4,000 mls/hr Cefazolin Sodium/Dextrose 2 gm (/ Premix) 50 mls @ 100 mls/hr IV Q8HR [facility] Stop: 07/09/16 22:29 Last Infusion: 07/09/16 17:28 Dose: Infused Cefazolin Sodium/Dextrose 2 gm (/ Premix) 50 mls @ 100 mls/hr IV Q8HR [facility] Stop: 07/10/16 03:29 Last Admin: 07/10/16 05:49 Dose: Not Given Ketorolac Tromethamine (Toradol) 15 mg IVPUSH ONARRIVE [facility] Last Admin: 07/09/16 07:28 Dose: 15 mg Ketorolac Tromethamine (Toradol) 15 mg IVPUSH Q6H [facility] Stop: 07/10/16 03:01 Ketorolac Tromethamine (Toradol) 15 mg IVPUSH Q6H [facility] Stop: 07/17/16 00:01 Last Admin: 07/12/16 05:13 Dose: 15 mg Lidocaine (Xylocaine-Mpf 2%) Confirm Administered Dose 10 ml .ROUTE .STK-MED ONE Stop: 07/09/16 07:15 Lidocaine (Xylocaine-Mpf 2%) Confirm Administered Dose 5 ml .ROUTE .STK-MED ONE Stop: 07/09/16 07:19 Lidocaine HCl (Xylocaine 1%) Confirm Administered Dose 50 ml .ROUTE .STK-MED ONE Stop: 07/09/16 06:49 Losartan Potassium (Cozaar) 100 mg PO DAILY [facility] Metoprolol Succinate (Toprol Xl) 50 mg PO ONETIME ONE Stop: 07/12/16 00:19 Last Admin: 07/12/16 00:39 Dose: 50 mg Midazolam HCl (Versed 1 Mg/Ml) Confirm Administered Dose 2 mg .ROUTE .STK-MED ONE Stop: 07/09/16 07:15 Ondansetron HCl (Zofran) Confirm Administered Dose 4 mg .ROUTE .STK-MED ONE Stop: 07/09/16 07:16 Oxycodone HCl (Oxycontin) 10 mg PO ONARRIVE [facility] Stop: 07/09/16 12:01 Last Admin: 07/09/16 07:27 Dose: 10 mg Oxycodone HCl (Oxycodone) 5 - 10 mg PO Q4H PRN PRN Reason: Pain Last Admin: 07/11/16 16:26 Dose: 10 mg Oxycodone HCl (Oxycontin) 10 mg PO Q12HR [facility] Last Admin: 07/11/16 22:21 Dose: Not Given Phenylephrine HCl (Alexis-Synephrine) Confirm Administered Dose 10 mg .ROUTE .STK- MED ONE Stop: 07/09/16 08:53 Potassium Chloride (Klor-Con M20) 20 meq PO DAILY [facility] Propofol (Diprivan 20 Ml) Confirm Administered Dose 400 mg .ROUTE .STK-MED ONE Stop: 07/09/16 07:15 Propofol (Diprivan 20 Ml) Confirm Administered Dose 200 mg .ROUTE .STK-MED ONE Stop: 07/09/16 07:19 Succinylcholine Chloride (Succinylcholine In Ns Pf) Confirm Administered Dose 200 mg .ROUTE .STK-MED ONE Stop: 07/09/16 07:17 Tranexamic Acid (Cyklokapron) Confirm Administered Dose 4,000 mg .ROUTE .STK- MED ONE Stop: 07/09/16 07:12 - My Orders Last 24 Hours: My Active Orders 07/12/16 04:17 CBC WITH AUTO DIFF [HEME] Routine 07/12/16 08:45 Sodium Chloride 0.9% [Normal Saline] 1,000 ml IV ASDIRECTED 07/12/16 09:00 cefTRIAXone [Rocephin in Dextrose,Iso-Osm 1 GM/50 ML] 1 gm Premix Bag 1 bag IV ONETIME 07/12/16 09:17 CXR [Chest 1V Frontal] [CR] Routine - Plan Plan:: This 75 year old male admitted with R TKA, hospitalist service consulted for medical management of DM, HTN, and Afib 1. S/P R TKA: Per Ortho. 2. HTN: Obtained BMP, K+ 5.4, BUN 25 and Cr 1.5. Mg 1.8. No peaked Ts on EKG. Baseline Cr 1.5. Continue Losartan and Lasix 80 mg BID. Did discontinue Toradol and Celebrex due to renal function and cardiac risk profile. 3. DM type 2: Hold oral agents, may restart upon discharge home. Will Continue Levemir. Novolog SSI with meals. A1c 7.4 preoperatively. 4. Afib: Tachycardia noted on assessment, EKG revealed ST prolonged [place], no change from pre-operative EKG. CXR revealed small L pleural effusion, will continue Lasix as stated above and stop IVFs. Will place telemetry to monitor. VTE prophylaxis: Per Ortho when deemed appropriate, ASA BID ordered per Ortho.
--- NOTE | 2016-07-12 09:38 | PCM.CONSN ---
Addendum entered and electronically signed by Chuck Dominguez MD 07/12/16 11:05: Patient states that allergy for morphine is true. He develops bad itching. Therefore Morphine was not given. Currently his pain is mild and he feels tylenol will be okay. We will start tylenol for pain and re-evaluate if pain worsens Original Note: - General Info Date of Service: 07/12/16 Admission Dx/Problem (Free Text): Admission Diagnosis/Problem Admission Diagnosis/Problem Replacement of total knee joint Subjective Update: Patient had fever of 38.5 overnight that was controlled. Complains of chills. no other complaints Functional Status: Reports: pain controlled, tolerating diet, urinating - Review of Systems General: Reports: Chills HEENT: Reports: no symptoms Pulmonary: Reports: no symptoms Cardiovascular: Reports: No Symptoms Gastrointestinal: Reports: No symptoms Genitourinary: Reports: no symptoms Musculoskeletal: Reports: no symptoms Skin: Reports: no symptoms Neurological: Reports: No Symptoms Psychiatric: Reports: no symptoms - Patient Data Vitals - most recent: Last Vital Signs Temp 37.0 C 07/12/16 07:49 Pulse 77 07/12/16 08:06 Resp 18 07/12/16 07:49 BP 109/65 07/12/16 08:06 Pulse Ox 90 L 07/12/16 07:49 Weight - most recent: 139.253 kg I&O - last 24 hours: Intake & Output 07/11/16 07/12/16 07/12/16 22:59 06:59 14:59 Intake Total 800 700 Output Total 1100 1640 Balance -300 -940 Lab Results last 24 hrs: Laboratory Results - last 24 hr 07/11/16 07/11/16 07/11/16 Range/Units 11:12 15:56 21:05 WBC (4.0-11.0) K/uL RBC (4.50-5.90) M/uL Hgb (13.0-17.0) g/dL Hct (38.0-50.0) % MCV (80.0-98.0) fL MCH (27.0-32.0) pg MCHC (31.0-37.0) g/dL RDW Std Deviation (28.0-62.0) fl RDW Coeff of [place] (11.0-15.0) % Plt Count (150-400) K/uL MPV (7.40-12.00) fL Add Manual Diff Neutrophils % (Manual) (48.0-80.0) % Band Neutrophils % % Lymphocytes % (Manual) (16.0-40.0) % Monocytes % (Manual) (0.0-15.0) % Eosinophils % (Manual) (0.0-7.0) % Nucleated RBC % /100WBC Absolute Seg Neuts Band Neutrophils # Lymphocytes # (Manual) Monocytes # (Manual) Eosinophils # (Manual) Nucleated RBCs # K/uL Sodium (136-146) mmol/L Potassium (3.5-5.1) mmol/L Chloride (98-110) mmol/L Carbon Dioxide (21-31) mmol/L BUN (6.0-23.0) mg/dL Creatinine (0.6-1.5) mg/dL Est Cr Clr Drug Dosing mL/min Estimated GFR (MDRD) ml/min Glucose (60-110) mg/dL POC Glucose 154 H 149 H 149 H (60-110) mg/dL Calcium (8.8-10.8) mg/dL Magnesium (1.5-2.3) mEq/L Urine Color Urine Appearance Urine pH (5.0-8.0) Ur Specific [place] (1.001-1.035) Urine Protein (NEGATIVE) mg/dL Urine Glucose (UA) (NEGATIVE) mg/dL Urine Ketones (NEGATIVE) mg/dL Urine Occult Blood (NEGATIVE) Urine Nitrite (NEGATIVE) Urine Bilirubin (NEGATIVE) Urine Ictotest Urine Urobilinogen (<2.0) EU/dL Ur Leukocyte Esterase (NEGATIVE) Urine RBC (0-2/HPF) Urine WBC (0-5/HPF) Ur Epithelial Cells (NONE-FEW) Urine Bacteria (NEGATIVE) 07/12/16 07/12/16 07/12/16 Range/Units 04:17 04:17 04:17 WBC 11.12 H (4.0-11.0) K/uL RBC 3.87 L (4.50-5.90) M/uL Hgb 11.4 L 11.3 L (13.0-17.0) g/dL Hct 36.6 L 36.7 L (38.0-50.0) % MCV 94.8 (80.0-98.0) fL MCH 29.2 (27.0-32.0) pg MCHC 30.8 L (31.0-37.0) g/dL RDW Std Deviation 55.6 (28.0-62.0) fl RDW Coeff of [place] 16 H (11.0-15.0) % Plt Count 190 (150-400) K/uL MPV 10.20 (7.40-12.00) fL Add Manual Diff YES Neutrophils % (Manual) 69 (48.0-80.0) % Band Neutrophils % 4 % Lymphocytes % (Manual) 20 (16.0-40.0) % Monocytes % (Manual) 4 (0.0-15.0) % Eosinophils % (Manual) 3 (0.0-7.0) % Nucleated RBC % 0.0 /100WBC Absolute Seg Neuts 7.7 Band Neutrophils # 0.4 Lymphocytes # (Manual) 2.2 Monocytes # (Manual) 0.4 Eosinophils # (Manual) 0.3 Nucleated RBCs # 0 K/uL Sodium 136 (136-146) mmol/L Potassium 5.3 H (3.5-5.1) mmol/L Chloride 104 (98-110) mmol/L Carbon Dioxide 24 (21-31) mmol/L BUN 47 H (6.0-23.0) mg/dL Creatinine 2.1 H (0.6-1.5) mg/dL Est Cr Clr Drug Dosing 30.98 mL/min Estimated GFR (MDRD) 30.9 ml/min Glucose 138 H (60-110) mg/dL POC Glucose (60-110) mg/dL Calcium 8.4 L (8.8-10.8) mg/dL Magnesium 2.3 (1.5-2.3) mEq/L Urine Color Urine Appearance Urine pH (5.0-8.0) Ur Specific [place] (1.001-1.035) Urine Protein (NEGATIVE) mg/dL Urine Glucose (UA) (NEGATIVE) mg/dL Urine Ketones (NEGATIVE) mg/dL Urine Occult Blood (NEGATIVE) Urine Nitrite (NEGATIVE) Urine Bilirubin (NEGATIVE) Urine Ictotest Urine Urobilinogen (<2.0) EU/dL Ur Leukocyte Esterase (NEGATIVE) Urine RBC (0-2/HPF) Urine WBC (0-5/HPF) Ur Epithelial Cells (NONE-FEW) Urine Bacteria (NEGATIVE) 05/11/17 05/11/17 Range/Units 06:23 07:55 WBC (4.0-11.0) K/uL RBC (4.50-5.90) M/uL Hgb (13.0-17.0) g/dL Hct (38.0-50.0) % MCV (80.0-98.0) fL MCH (27.0-32.0) pg MCHC (31.0-37.0) g/dL RDW Std Deviation (28.0-62.0) fl RDW Coeff of [place] (11.0-15.0) % Plt Count (150-400) K/uL MPV (7.40-12.00) fL Add Manual Diff Neutrophils % (Manual) (48.0-80.0) % Band Neutrophils % % Lymphocytes % (Manual) (16.0-40.0) % Monocytes % (Manual) (0.0-15.0) % Eosinophils % (Manual) (0.0-7.0) % Nucleated RBC % /100WBC Absolute Seg Neuts Band Neutrophils # Lymphocytes # (Manual) Monocytes # (Manual) Eosinophils # (Manual) Nucleated RBCs # K/uL Sodium (136-146) mmol/L Potassium (3.5-5.1) mmol/L Chloride (98-110) mmol/L Carbon Dioxide (21-31) mmol/L BUN (6.0-23.0) mg/dL Creatinine (0.6-1.5) mg/dL Est Cr Clr Drug Dosing mL/min Estimated GFR (MDRD) ml/min Glucose (60-110) mg/dL POC Glucose 127 H (60-110) mg/dL Calcium (8.8-10.8) mg/dL Magnesium (1.5-2.3) mEq/L Urine Color RED Urine Appearance SLT CLOUDY Urine pH 5.0 (5.0-8.0) Ur Specific [place] 1.025 (1.001-1.035) Urine Protein >=300 (NEGATIVE) mg/dL Urine Glucose (UA) NEGATIVE (NEGATIVE) mg/dL Urine Ketones TRACE H (NEGATIVE) mg/dL Urine Occult Blood LARGE H (NEGATIVE) Urine Nitrite POSITIVE H (NEGATIVE) Urine Bilirubin MODERATE H (NEGATIVE) Urine Ictotest NEGATIVE Urine Urobilinogen 1.0 (<2.0) EU/dL Ur Leukocyte Esterase TRACE (NEGATIVE) Urine RBC TOO NUMBEROUS TO CT (0-2/HPF) Urine WBC 0-3 (0-5/HPF) Ur Epithelial Cells RARE (NONE-FEW) Urine Bacteria 1+ H (NEGATIVE) Med Orders - Current: Current Medications Acetaminophen (Tylenol Extra Strength) 1,000 mg PO Q6H [facility] Last Admin: 07/12/16 08:04 Dose: 1,000 mg Al Hydroxide/Mg Hydroxide (Mag-Al Plus) 30 ml PO Q4H PRN PRN Reason: indigestion Aspirin (Aspirin) 325 mg PO BID [facility] Last Admin: 07/12/16 08:06 Dose: 325 mg Bisacodyl (Dulcolax) 10 mg RECTAL DAILY PRN PRN Reason: Constipation Diphenhydramine HCl (Benadryl) 25 - 50 mg PO Q6H PRN PRN Reason: Itching Docusate Sodium (Colace) 100 mg PO BID [facility] Last Admin: 07/12/16 08:05 Dose: 100 mg Sodium Chloride (Normal Saline) 1,000 mls @ 75 mls/hr IV ASDIRECTED [facility] Last Admin: 07/12/16 09:31 Dose: 75 mls/hr Insulin Aspart (Novolog) 0 unit SUBCUT TIDAC [facility] PRN Reason: Protocol Last Admin: 07/12/16 08:18 Dose: Not Given Insulin Detemir (Levemir) 40 unit SUBCUT BEDTIME [facility] Last Admin: 07/11/16 21:08 Dose: 40 units Metoprolol Succinate (Toprol Xl) 50 mg PO DAILY [facility] Last Admin: 07/12/16 08:06 Dose: 50 mg Ondansetron HCl (Zofran) 4 mg IV Q6HR PRN PRN Reason: NAUSEA/VOMITING Last Admin: 07/11/16 08:28 Dose: 4 mg Oxybutynin Chloride (Oxybutynin) 5 mg PO BEDTIME [facility] Last Admin: 07/11/16 20:50 Dose: 5 mg Scopolamine (Transderm-Scop) 1.5 mg TRDERM ONARRIVE [facility] Last Admin: 07/09/16 07:27 Dose: 1.5 mg Discontinued Medications Celecoxib (Celebrex) 200 mg PO DAILY [facility] Ephedrine Sulfate (Ephedrine Sulfate) Confirm Administered Dose 100 mg .ROUTE .STK-MED ONE Stop: 07/09/16 07:16 Famotidine (Pepcid) 40 mg IVPUSH ONARRIVE [facility] Stop: 07/09/16 12:01 Last Admin: 07/09/16 07:28 Dose: 40 mg Fentanyl (Sublimaze) Confirm Administered Dose 100 mcg .ROUTE .STK-MED ONE Stop: 07/09/16 07:15 Fentanyl (Sublimaze) Confirm Administered Dose 100 mcg .ROUTE .STK-MED ONE Stop: 07/09/16 07:16 Fentanyl (Sublimaze) 50 mcg IVPUSH Q5M PRN PRN Reason: Pain (severe 7-10) Stop: 07/10/16 09:42 Last Admin: 07/09/16 11:18 Dose: 50 mcg Furosemide (Lasix) 80 mg PO BID [facility] Last Admin: 07/09/16 20:38 Dose: 80 mg Furosemide (Lasix) 80 mg PO BIDDIURETIC [facility] Last Admin: 07/12/16 08:06 Dose: 80 mg Hydromorphone HCl (Dilaudid) 0.5 - 1 mg IVPUSH Q3H PRN PRN Reason: Pain Last Admin: 07/10/16 11:28 Dose: 1 mg Hydromorphone HCl (Dilaudid) 0.5 - 1 mg IVPUSH Q3H PRN PRN Reason: Pain Last Admin: 07/11/16 17:53 Dose: 1 mg Acetaminophen 1,000 mg/ Premix 100 mls @ 400 mls/hr IV ONARRIVE [facility] Stop: 07/09/16 12:01 Ropivacaine 49.25 ml/Ketorolac Tromethamine 30 mg/Epinephrine HCl 0.5 mg/ Clonidine HCl 80 mcg/ Sodium Chloride 100 mls @ 50 mls/min INJECT ASDIRECTED [facility] Stop: 07/09/16 12:01 Lactated Ringer's (Ringers, Lactated) 1,000 mls @ 100 mls/hr IV ASDIRECTED [facility] Last Admin: 07/09/16 07:25 Dose: 100 mls/hr Tranexamic Acid 4,000 mg/ (Sodium Chloride) 140 mls @ 600 mls/hr IV ASDIRECTED [facility] Stop: 07/09/16 12:01 Cefazolin Sodium/Dextrose 2 gm (/ Premix) 50 mls @ 100 mls/hr IV ONCALL [facility] Stop: 07/09/16 12:01 Dextrose/Water (Dextrose 5% In Water) 500 mls @ 75 mls/hr IV ASDIRECTED [facility] Last Admin: 07/09/16 07:26 Dose: 75 mls/hr Acetaminophen (Ofirmev) 1,000 mls @ 4,000 mls/hr IV ONARRIVE [facility] Stop: 07/09/16 12:01 Last Admin: 07/09/16 07:27 Dose: 4,000 mls/hr Cefazolin Sodium/Dextrose 2 gm (/ Premix) 50 mls @ 100 mls/hr IV Q8HR [facility] Stop: 07/09/16 22:29 Last Infusion: 07/09/16 17:28 Dose: Infused Cefazolin Sodium/Dextrose 2 gm (/ Premix) 50 mls @ 100 mls/hr IV Q8HR [facility] Stop: 07/10/16 03:29 Last Admin: 07/10/16 05:49 Dose: Not Given Ceftriaxone Sodium/Dextrose 1 (gm/ Premix) 50 mls @ 100 mls/hr IV ONETIME ONE Stop: 07/12/16 09:29 Last Admin: 07/12/16 09:31 Dose: 100 mls/hr Ketorolac Tromethamine (Toradol) 15 mg IVPUSH ONARRIVE [facility] Last Admin: 07/09/16 07:28 Dose: 15 mg Ketorolac Tromethamine (Toradol) 15 mg IVPUSH Q6H [facility] Stop: 07/10/16 03:01 Ketorolac Tromethamine (Toradol) 15 mg IVPUSH Q6H [facility] Stop: 07/17/16 00:01 Last Admin: 07/12/16 05:13 Dose: 15 mg Lidocaine (Xylocaine-Mpf 2%) Confirm Administered Dose 10 ml .ROUTE .STK-MED ONE Stop: 07/09/16 07:15 Lidocaine (Xylocaine-Mpf 2%) Confirm Administered Dose 5 ml .ROUTE .STK-MED ONE Stop: 07/09/16 07:19 Lidocaine HCl (Xylocaine 1%) Confirm Administered Dose 50 ml .ROUTE .STK-MED ONE Stop: 07/09/16 06:49 Losartan Potassium (Cozaar) 100 mg PO DAILY [facility] Metoprolol Succinate (Toprol Xl) 50 mg PO ONETIME ONE Stop: 07/12/16 00:19 Last Admin: 07/12/16 00:39 Dose: 50 mg Midazolam HCl (Versed 1 Mg/Ml) Confirm Administered Dose 2 mg .ROUTE .STK-MED ONE Stop: 07/09/16 07:15 Ondansetron HCl (Zofran) Confirm Administered Dose 4 mg .ROUTE .STK-MED ONE Stop: 07/09/16 07:16 Oxycodone HCl (Oxycontin) 10 mg PO ONARRIVE [facility] Stop: 07/09/16 12:01 Last Admin: 07/09/16 07:27 Dose: 10 mg Oxycodone HCl (Oxycodone) 5 - 10 mg PO Q4H PRN PRN Reason: Pain Last Admin: 07/11/16 16:26 Dose: 10 mg Oxycodone HCl (Oxycontin) 10 mg PO Q12HR [facility] Last Admin: 07/11/16 22:21 Dose: Not Given Phenylephrine HCl (Alexis-Synephrine) Confirm Administered Dose 10 mg .ROUTE .STK- MED ONE Stop: 07/09/16 08:53 Potassium Chloride (Klor-Con M20) 20 meq PO DAILY [facility] Propofol (Diprivan 20 Ml) Confirm Administered Dose 400 mg .ROUTE .STK-MED ONE Stop: 07/09/16 07:15 Propofol (Diprivan 20 Ml) Confirm Administered Dose 200 mg .ROUTE .STK-MED ONE Stop: 07/09/16 07:19 Succinylcholine Chloride (Succinylcholine In Ns Pf) Confirm Administered Dose 200 mg .ROUTE .STK-MED ONE Stop: 07/09/16 07:17 Tranexamic Acid (Cyklokapron) Confirm Administered Dose 4,000 mg .ROUTE .STK- MED ONE Stop: 07/09/16 07:12 - Exam General: alert, oriented, cooperative HEENT: Pupils equal Neck: supple, no JVD Lungs: Decreased breath sounds Cardiovascular: Regular Rate Back Exam: No: CVA tenderness (L), CVA tenderness (R) Extremities: no edema Skin: intact Neurological: no new focal deficit Psy/Mental Status: alert Consult PN Assessment/Plan Procedures: Procedures ASSAY OF IRON (02/21/15) CHEST X-RAY 2VW FRONTAL&LATL (04/30/16) COMPLETE CBC AUTOMATED (12/07/14) COMPLETE CBC W/AUTO DIFF WBC (06/25/16) COMPREHEN METABOLIC PANEL (06/25/16) ELECTROCARDIOGRAM TRACING (04/30/16) GLYCOSYLATED HEMOGLOBIN TEST (06/08/16) LIPID PANEL (04/30/16) MEDICAL NUTRITION INDIV IN (01/20/15) MRI JNT OF LWR EXTRE W/O DYE (04/24/16) OFFICE/OUTPATIENT VISIT EST (01/17/15) OFFICE/OUTPATIENT VISIT NEW (12/09/14) PROTHROMBIN TIME (06/25/16) ROUTINE VENIPUNCTURE (06/25/16) THROMBOPLASTIN TIME PARTIAL (06/25/16) TTE W/DOPPLER COMPLETE (12/31/14) URINALYSIS AUTO W/SCOPE (06/25/16) X-RAY EXAM KNEE 4 OR MORE (03/29/16) Problem List Initiated/Reviewed/Updated: Yes My Orders last 24 hours: My Active Orders 07/12/16 08:45 Sodium Chloride 0.9% [Normal Saline] 1,000 ml IV ASDIRECTED 07/12/16 09:17 CXR [Chest 1V Frontal] [CR] Routine Plan: 07/12/16: 75 yo male with history of DM. HTN & AF admitted for Right Total Knee. Overnight patient developed fever of 38.5 and mild chills. This morning urine appeared dark. Labs suggestive of LOUISE. UA was positive for blood and nitrites. 1. Start NaCl @ 75 ml/hr 2. DC Toradol & Lasix 3. strict I&O's, weight checks and close monitoring for signs of CHF - obtain CXR if any suspicion. CXR from 07/09/16 showed no acute changes 4. start morphine IV for pain 5. Send UA for culture 6. repeat bmp in evening 7. continue all other management as per orders 07/11/16: This 75 year old male admitted with R TKA, hospitalist service consulted for medical management of DM, HTN, and Afib 1. S/P R TKA: Per Ortho. 2. HTN: No peaked Ts on EKG. Baseline Cr 1.5. Holding Losartan and Lasix 80 mg BID today due to renal function. Upon further review of past chart, LV EF 40-45 % with mildly decreased Left ventricular systolic function on ECHO from 2014. Will restart Lasix today. 3. DM type 2: Hold oral agents, may restart upon discharge home. Will Continue Levemir. Novolog SSI with meals. A1c 7.4 preoperatively. 4. Hx Afib: Telemetry shows SR. 5. LOUISE: Slowly improving. Will hold Losartan. Restart Lasix today. 6. Hyperkalemia: EKG shows no signs of peaked T monitor later today. Stable, adding Lasix today. VTE prophylaxis: Per Ortho when deemed appropriate, ASA BID ordered per Ortho.
[2016-07-12] MEDS ORDERED: Morphine 4 MG/ML Syringe IVPUSH PRN (09:56)
[2016-07-12] MEDS: Insulin Detemir 100 Units/ML 3 ML Pen SUBCUT SCH (20:52)
[2016-07-12] MEDS: Oxybutynin 5 MG Tab PO SCH (20:58)
--- NOTE | 2016-07-12 21:14 | PCM.CONSN ---
- General Info Date of Service: 07/12/16 Subjective Update: he felt chilled. He has been hypoxic. He has a slight cough - Patient Data Vitals - most recent: Last Vital Signs Temp 97.4 F 07/12/16 15:00 Pulse 83 07/12/16 15:00 Resp 18 07/12/16 15:00 BP 123/65 07/12/16 15:00 Pulse Ox 93 L 07/12/16 15:00 Weight - most recent: 139.253 kg I&O - last 24 hours: Intake & Output 07/12/16 07/12/16 07/12/16 06:59 14:59 22:59 Intake Total 700 640 Output Total 1640 450 Balance -940 190 Lab Results last 24 hrs: Laboratory Results - last 24 hr 07/11/16 07/12/16 07/12/16 Range/Units 21:05 04:17 04:17 WBC (4.0-11.0) K/uL RBC (4.50-5.90) M/uL Hgb 11.4 L (13.0-17.0) g/dL Hct 36.6 L (38.0-50.0) % MCV (80.0-98.0) fL MCH (27.0-32.0) pg MCHC (31.0-37.0) g/dL RDW Std Deviation (28.0-62.0) fl RDW Coeff of [place] (11.0-15.0) % Plt Count (150-400) K/uL MPV (7.40-12.00) fL Neut % (Auto) (48.0-80.0) % Lymph % (Auto) (16.0-40.0) % [place] % (Auto) (0.0-15.0) % Eos % (Auto) (0.0-7.0) % Baso % (Auto) (0.0-1.5) % Neut # (Auto) (1.4-5.7) K/uL Lymph # (Auto) (0.6-2.4) K/uL [place] # (Auto) (0.0-0.8) K/uL Eos # (Auto) (0.0-0.7) K/uL Baso # (Auto) (0.0-0.1) K/uL Add Manual Diff Neutrophils % (Manual) (48.0-80.0) % Band Neutrophils % % Lymphocytes % (Manual) (16.0-40.0) % Monocytes % (Manual) (0.0-15.0) % Eosinophils % (Manual) (0.0-7.0) % Nucleated RBC % /100WBC Absolute Seg Neuts Band Neutrophils # Lymphocytes # (Manual) Monocytes # (Manual) Eosinophils # (Manual) Nucleated RBCs # K/uL Sodium 136 (136-146) mmol/L Potassium 5.3 H (3.5-5.1) mmol/L Chloride 104 (98-110) mmol/L Carbon Dioxide 24 (21-31) mmol/L BUN 47 H (6.0-23.0) mg/dL Creatinine 2.1 H (0.6-1.5) mg/dL Est Cr Clr Drug Dosing 30.98 mL/min Estimated GFR (MDRD) 30.9 ml/min Glucose 138 H (60-110) mg/dL POC Glucose 149 H (60-110) mg/dL Calcium 8.4 L (8.8-10.8) mg/dL Magnesium 2.3 (1.5-2.3) mEq/L Urine Color Urine Appearance Urine pH (5.0-8.0) Ur Specific [place] (1.001-1.035) Urine Protein (NEGATIVE) mg/dL Urine Glucose (UA) (NEGATIVE) mg/dL Urine Ketones (NEGATIVE) mg/dL Urine Occult Blood (NEGATIVE) Urine Nitrite (NEGATIVE) Urine Bilirubin (NEGATIVE) Urine Ictotest Urine Urobilinogen (<2.0) EU/dL Ur Leukocyte Esterase (NEGATIVE) Urine RBC (0-2/HPF) Urine WBC (0-5/HPF) Ur Epithelial Cells (NONE-FEW) Urine Bacteria (NEGATIVE) Urine Mucus (NONE-MOD) Ur Random Creatinine mg/dL Ur Random Sodium mmol/L 07/12/16 07/12/16 07/12/16 Range/Units 04:17 06:23 07:55 WBC 11.12 H (4.0-11.0) K/uL RBC 3.87 L (4.50-5.90) M/uL Hgb 11.3 L (13.0-17.0) g/dL Hct 36.7 L (38.0-50.0) % MCV 94.8 (80.0-98.0) fL MCH 29.2 (27.0-32.0) pg MCHC 30.8 L (31.0-37.0) g/dL RDW Std Deviation 55.6 (28.0-62.0) fl RDW Coeff of [place] 16 H (11.0-15.0) % Plt Count 190 (150-400) K/uL MPV 10.20 (7.40-12.00) fL Neut % (Auto) (48.0-80.0) % Lymph % (Auto) (16.0-40.0) % [place] % (Auto) (0.0-15.0) % Eos % (Auto) (0.0-7.0) % Baso % (Auto) (0.0-1.5) % Neut # (Auto) (1.4-5.7) K/uL Lymph # (Auto) (0.6-2.4) K/uL [place] # (Auto) (0.0-0.8) K/uL Eos # (Auto) (0.0-0.7) K/uL Baso # (Auto) (0.0-0.1) K/uL Add Manual Diff YES Neutrophils % (Manual) 69 (48.0-80.0) % Band Neutrophils % 4 % Lymphocytes % (Manual) 20 (16.0-40.0) % Monocytes % (Manual) 4 (0.0-15.0) % Eosinophils % (Manual) 3 (0.0-7.0) % Nucleated RBC % 0.0 /100WBC Absolute Seg Neuts 7.7 Band Neutrophils # 0.4 Lymphocytes # (Manual) 2.2 Monocytes # (Manual) 0.4 Eosinophils # (Manual) 0.3 Nucleated RBCs # 0 K/uL Sodium (136-146) mmol/L Potassium (3.5-5.1) mmol/L Chloride (98-110) mmol/L Carbon Dioxide (21-31) mmol/L BUN (6.0-23.0) mg/dL Creatinine (0.6-1.5) mg/dL Est Cr Clr Drug Dosing mL/min Estimated GFR (MDRD) ml/min Glucose (60-110) mg/dL POC Glucose 127 H (60-110) mg/dL Calcium (8.8-10.8) mg/dL Magnesium (1.5-2.3) mEq/L Urine Color RED Urine Appearance SLT CLOUDY Urine pH 5.0 (5.0-8.0) Ur Specific [place] 1.025 (1.001-1.035) Urine Protein >=300 (NEGATIVE) mg/dL Urine Glucose (UA) NEGATIVE (NEGATIVE) mg/dL Urine Ketones TRACE H (NEGATIVE) mg/dL Urine Occult Blood LARGE H (NEGATIVE) Urine Nitrite POSITIVE H (NEGATIVE) Urine Bilirubin MODERATE H (NEGATIVE) Urine Ictotest NEGATIVE Urine Urobilinogen 1.0 (<2.0) EU/dL Ur Leukocyte Esterase TRACE (NEGATIVE) Urine RBC TOO NUMBEROUS TO CT (0-2/HPF) Urine WBC 0-3 (0-5/HPF) Ur Epithelial Cells RARE (NONE-FEW) Urine Bacteria 1+ H (NEGATIVE) Urine Mucus (NONE-MOD) Ur Random Creatinine mg/dL Ur Random Sodium mmol/L 07/12/16 07/12/16 07/12/16 Range/Units 11:31 16:30 17:12 WBC (4.0-11.0) K/uL RBC (4.50-5.90) M/uL Hgb (13.0-17.0) g/dL Hct (38.0-50.0) % MCV (80.0-98.0) fL MCH (27.0-32.0) pg MCHC (31.0-37.0) g/dL RDW Std Deviation (28.0-62.0) fl RDW Coeff of [place] (11.0-15.0) % Plt Count (150-400) K/uL MPV (7.40-12.00) fL Neut % (Auto) (48.0-80.0) % Lymph % (Auto) (16.0-40.0) % [place] % (Auto) (0.0-15.0) % Eos % (Auto) (0.0-7.0) % Baso % (Auto) (0.0-1.5) % Neut # (Auto) (1.4-5.7) K/uL Lymph # (Auto) (0.6-2.4) K/uL [place] # (Auto) (0.0-0.8) K/uL Eos # (Auto) (0.0-0.7) K/uL Baso # (Auto) (0.0-0.1) K/uL Add Manual Diff Neutrophils % (Manual) (48.0-80.0) % Band Neutrophils % % Lymphocytes % (Manual) (16.0-40.0) % Monocytes % (Manual) (0.0-15.0) % Eosinophils % (Manual) (0.0-7.0) % Nucleated RBC % /100WBC Absolute Seg Neuts Band Neutrophils # Lymphocytes # (Manual) Monocytes # (Manual) Eosinophils # (Manual) Nucleated RBCs # K/uL Sodium 135 L (136-146) mmol/L Potassium 5.2 H (3.5-5.1) mmol/L Chloride 102 (98-110) mmol/L Carbon Dioxide 25 (21-31) mmol/L BUN 61 H (6.0-23.0) mg/dL Creatinine 2.4 H (0.6-1.5) mg/dL Est Cr Clr Drug Dosing 27.10 mL/min Estimated GFR (MDRD) 26.5 ml/min Glucose 133 H (60-110) mg/dL POC Glucose 135 H 136 H (60-110) mg/dL Calcium 8.8 (8.8-10.8) mg/dL Magnesium (1.5-2.3) mEq/L Urine Color Urine Appearance Urine pH (5.0-8.0) Ur Specific [place] (1.001-1.035) Urine Protein (NEGATIVE) mg/dL Urine Glucose (UA) (NEGATIVE) mg/dL Urine Ketones (NEGATIVE) mg/dL Urine Occult Blood (NEGATIVE) Urine Nitrite (NEGATIVE) Urine Bilirubin (NEGATIVE) Urine Ictotest Urine Urobilinogen (<2.0) EU/dL Ur Leukocyte Esterase (NEGATIVE) Urine RBC (0-2/HPF) Urine WBC (0-5/HPF) Ur Epithelial Cells (NONE-FEW) Urine Bacteria (NEGATIVE) Urine Mucus (NONE-MOD) Ur Random Creatinine mg/dL Ur Random Sodium mmol/L 07/12/16 07/12/16 07/12/16 Range/Units 17:12 17:49 17:49 WBC 11.89 H (4.0-11.0) K/uL RBC 4.01 L (4.50-5.90) M/uL Hgb 11.7 L (13.0-17.0) g/dL Hct 37.9 L (38.0-50.0) % MCV 94.5 (80.0-98.0) fL MCH 29.2 (27.0-32.0) pg MCHC 30.9 L (31.0-37.0) g/dL RDW Std Deviation 56.3 (28.0-62.0) fl RDW Coeff of [place] 16 H (11.0-15.0) % Plt Count 180 (150-400) K/uL MPV 9.60 (7.40-12.00) fL Neut % (Auto) 75.4 (48.0-80.0) % Lymph % (Auto) 12.4 L (16.0-40.0) % [place] % (Auto) 10.0 (0.0-15.0) % Eos % (Auto) 2.1 (0.0-7.0) % Baso % (Auto) 0.1 (0.0-1.5) % Neut # (Auto) 9.0 H (1.4-5.7) K/uL Lymph # (Auto) 1.5 (0.6-2.4) K/uL [place] # (Auto) 1.2 H (0.0-0.8) K/uL Eos # (Auto) 0.3 (0.0-0.7) K/uL Baso # (Auto) 0.0 (0.0-0.1) K/uL Add Manual Diff Neutrophils % (Manual) (48.0-80.0) % Band Neutrophils % % Lymphocytes % (Manual) (16.0-40.0) % Monocytes % (Manual) (0.0-15.0) % Eosinophils % (Manual) (0.0-7.0) % Nucleated RBC % 0.0 /100WBC Absolute Seg Neuts Band Neutrophils # Lymphocytes # (Manual) Monocytes # (Manual) Eosinophils # (Manual) Nucleated RBCs # 0 K/uL Sodium (136-146) mmol/L Potassium (3.5-5.1) mmol/L Chloride (98-110) mmol/L Carbon Dioxide (21-31) mmol/L BUN (6.0-23.0) mg/dL Creatinine (0.6-1.5) mg/dL Est Cr Clr Drug Dosing mL/min Estimated GFR (MDRD) ml/min Glucose (60-110) mg/dL POC Glucose (60-110) mg/dL Calcium (8.8-10.8) mg/dL Magnesium (1.5-2.3) mEq/L Urine Color [place] Urine Appearance CLOUDY Urine pH 5.0 (5.0-8.0) Ur Specific [place] 1.020 (1.001-1.035) Urine Protein 30 (NEGATIVE) mg/dL Urine Glucose (UA) NEGATIVE (NEGATIVE) mg/dL Urine Ketones NEGATIVE (NEGATIVE) mg/dL Urine Occult Blood LARGE H (NEGATIVE) Urine Nitrite NEGATIVE (NEGATIVE) Urine Bilirubin NEGATIVE (NEGATIVE) Urine Ictotest Urine Urobilinogen 0.2 (<2.0) EU/dL Ur Leukocyte Esterase TRACE (NEGATIVE) Urine RBC TOO NUMBEROUS TO CT (0-2/HPF) Urine WBC 0-1 (0-5/HPF) Ur Epithelial Cells OCCASIONAL (NONE-FEW) Urine Bacteria FEW (NEGATIVE) Urine Mucus LIGHT (NONE-MOD) Ur Random Creatinine 88.6 mg/dL Ur Random Sodium < 20.0 mmol/L 07/12/16 Range/Units 20:39 WBC (4.0-11.0) K/uL RBC (4.50-5.90) M/uL Hgb (13.0-17.0) g/dL Hct (38.0-50.0) % MCV (80.0-98.0) fL MCH (27.0-32.0) pg MCHC (31.0-37.0) g/dL RDW Std Deviation (28.0-62.0) fl RDW Coeff of [place] (11.0-15.0) % Plt Count (150-400) K/uL MPV (7.40-12.00) fL Neut % (Auto) (48.0-80.0) % Lymph % (Auto) (16.0-40.0) % [place] % (Auto) (0.0-15.0) % Eos % (Auto) (0.0-7.0) % Baso % (Auto) (0.0-1.5) % Neut # (Auto) (1.4-5.7) K/uL Lymph # (Auto) (0.6-2.4) K/uL [place] # (Auto) (0.0-0.8) K/uL Eos # (Auto) (0.0-0.7) K/uL Baso # (Auto) (0.0-0.1) K/uL Add Manual Diff Neutrophils % (Manual) (48.0-80.0) % Band Neutrophils % % Lymphocytes % (Manual) (16.0-40.0) % Monocytes % (Manual) (0.0-15.0) % Eosinophils % (Manual) (0.0-7.0) % Nucleated RBC % /100WBC Absolute Seg Neuts Band Neutrophils # Lymphocytes # (Manual) Monocytes # (Manual) Eosinophils # (Manual) Nucleated RBCs # K/uL Sodium (136-146) mmol/L Potassium (3.5-5.1) mmol/L Chloride (98-110) mmol/L Carbon Dioxide (21-31) mmol/L BUN (6.0-23.0) mg/dL Creatinine (0.6-1.5) mg/dL Est Cr Clr Drug Dosing mL/min Estimated GFR (MDRD) ml/min Glucose (60-110) mg/dL POC Glucose 150 H (60-110) mg/dL Calcium (8.8-10.8) mg/dL Magnesium (1.5-2.3) mEq/L Urine Color Urine Appearance Urine pH (5.0-8.0) Ur Specific [place] (1.001-1.035) Urine Protein (NEGATIVE) mg/dL Urine Glucose (UA) (NEGATIVE) mg/dL Urine Ketones (NEGATIVE) mg/dL Urine Occult Blood (NEGATIVE) Urine Nitrite (NEGATIVE) Urine Bilirubin (NEGATIVE) Urine Ictotest Urine Urobilinogen (<2.0) EU/dL Ur Leukocyte Esterase (NEGATIVE) Urine RBC (0-2/HPF) Urine WBC (0-5/HPF) Ur Epithelial Cells (NONE-FEW) Urine Bacteria (NEGATIVE) Urine Mucus (NONE-MOD) Ur Random Creatinine mg/dL Ur Random Sodium mmol/L [place] Results last 24 hrs: Microbiology 07/12/16 18:22 Anaerobic Blood Culture - Final Blood - Venous - Lab Draw Med Orders - Current: Current Medications Acetaminophen (Tylenol Extra Strength) 1,000 mg PO Q6H [facility] Last Admin: 07/12/16 20:57 Dose: 1,000 mg Al Hydroxide/Mg Hydroxide (Mag-Al Plus) 30 ml PO Q4H PRN PRN Reason: indigestion Aspirin (Aspirin) 325 mg PO BID [facility] Last Admin: 07/12/16 21:01 Dose: 325 mg Bisacodyl (Dulcolax) 10 mg RECTAL DAILY PRN PRN Reason: Constipation Diphenhydramine HCl (Benadryl) 25 - 50 mg PO Q6H PRN PRN Reason: Itching Docusate Sodium (Colace) 100 mg PO BID [facility] Last Admin: 07/12/16 20:59 Dose: 100 mg Ceftriaxone Sodium/Dextrose 1 (gm/ Premix) 50 mls @ 100 mls/hr IV Q24H [facility] Sodium Chloride (Normal Saline) 1,000 mls @ 125 mls/hr IV ASDIRECTED [facility] Insulin Aspart (Novolog) 0 unit SUBCUT TIDAC [facility] PRN Reason: Protocol Last Admin: 07/12/16 17:01 Dose: Not Given Insulin Detemir (Levemir) 40 unit SUBCUT BEDTIME [facility] Last Admin: 07/12/16 20:52 Dose: 40 units Metoprolol Succinate (Toprol Xl) 50 mg PO DAILY [facility] Last Admin: 07/12/16 08:06 Dose: 50 mg Ondansetron HCl (Zofran) 4 mg IV Q6HR PRN PRN Reason: NAUSEA/VOMITING Last Admin: 07/11/16 08:28 Dose: 4 mg Oxybutynin Chloride (Oxybutynin) 5 mg PO BEDTIME [facility] Last Admin: 07/12/16 20:58 Dose: 5 mg Scopolamine (Transderm-Scop) 1.5 mg TRDERM ONARRIVE [facility] Last Admin: 07/09/16 07:27 Dose: 1.5 mg Discontinued Medications Celecoxib (Celebrex) 200 mg PO DAILY [facility] Ephedrine Sulfate (Ephedrine Sulfate) Confirm Administered Dose 100 mg .ROUTE .STK-MED ONE Stop: 07/09/16 07:16 Famotidine (Pepcid) 40 mg IVPUSH ONARRIVE [facility] Stop: 07/09/16 12:01 Last Admin: 07/09/16 07:28 Dose: 40 mg Fentanyl (Sublimaze) Confirm Administered Dose 100 mcg .ROUTE .STK-MED ONE Stop: 07/09/16 07:15 Fentanyl (Sublimaze) Confirm Administered Dose 100 mcg .ROUTE .STK-MED ONE Stop: 07/09/16 07:16 Fentanyl (Sublimaze) 50 mcg IVPUSH Q5M PRN PRN Reason: Pain (severe 7-10) Stop: 07/10/16 09:42 Last Admin: 07/09/16 11:18 Dose: 50 mcg Furosemide (Lasix) 80 mg PO BID [facility] Last Admin: 07/09/16 20:38 Dose: 80 mg Furosemide (Lasix) 80 mg PO BIDDIURETIC [facility] Last Admin: 07/12/16 08:06 Dose: 80 mg Hydromorphone HCl (Dilaudid) 0.5 - 1 mg IVPUSH Q3H PRN PRN Reason: Pain Last Admin: 07/10/16 11:28 Dose: 1 mg Hydromorphone HCl (Dilaudid) 0.5 - 1 mg IVPUSH Q3H PRN PRN Reason: Pain Last Admin: 07/11/16 17:53 Dose: 1 mg Acetaminophen 1,000 mg/ Premix 100 mls @ 400 mls/hr IV ONARRIVE [facility] Stop: 07/09/16 12:01 Ropivacaine 49.25 ml/Ketorolac Tromethamine 30 mg/Epinephrine HCl 0.5 mg/ Clonidine HCl 80 mcg/ Sodium Chloride 100 mls @ 50 mls/min INJECT ASDIRECTED [facility] Stop: 07/09/16 12:01 Lactated Ringer's (Ringers, Lactated) 1,000 mls @ 100 mls/hr IV ASDIRECTED [facility] Last Admin: 07/09/16 07:25 Dose: 100 mls/hr Tranexamic Acid 4,000 mg/ (Sodium Chloride) 140 mls @ 600 mls/hr IV ASDIRECTED [facility] Stop: 07/09/16 12:01 Cefazolin Sodium/Dextrose 2 gm (/ Premix) 50 mls @ 100 mls/hr IV ONCALL [facility] Stop: 07/09/16 12:01 Dextrose/Water (Dextrose 5% In Water) 500 mls @ 75 mls/hr IV ASDIRECTED [facility] Last Admin: 07/09/16 07:26 Dose: 75 mls/hr Acetaminophen (Ofirmev) 1,000 mls @ 4,000 mls/hr IV ONARRIVE [facility] Stop: 07/09/16 12:01 Last Admin: 07/09/16 07:27 Dose: 4,000 mls/hr Cefazolin Sodium/Dextrose 2 gm (/ Premix) 50 mls @ 100 mls/hr IV Q8HR [facility] Stop: 07/09/16 22:29 Last Infusion: 07/09/16 17:28 Dose: Infused Cefazolin Sodium/Dextrose 2 gm (/ Premix) 50 mls @ 100 mls/hr IV Q8HR [facility] Stop: 07/10/16 03:29 Last Admin: 07/10/16 05:49 Dose: Not Given Ceftriaxone Sodium/Dextrose 1 (gm/ Premix) 50 mls @ 100 mls/hr IV ONETIME ONE Stop: 07/12/16 09:29 Last Admin: 07/12/16 09:31 Dose: 100 mls/hr Sodium Chloride (Normal Saline) 1,000 mls @ 125 mls/hr IV ASDIRECTED [facility] Last Admin: 07/12/16 09:31 Dose: 75 mls/hr Ketorolac Tromethamine (Toradol) 15 mg IVPUSH ONARRIVE [facility] Last Admin: 07/09/16 07:28 Dose: 15 mg Ketorolac Tromethamine (Toradol) 15 mg IVPUSH Q6H [facility] Stop: 07/10/16 03:01 Ketorolac Tromethamine (Toradol) 15 mg IVPUSH Q6H [facility] Stop: 07/17/16 00:01 Last Admin: 07/12/16 05:13 Dose: 15 mg Lidocaine (Xylocaine-Mpf 2%) Confirm Administered Dose 10 ml .ROUTE .STK-MED ONE Stop: 07/09/16 07:15 Lidocaine (Xylocaine-Mpf 2%) Confirm Administered Dose 5 ml .ROUTE .STK-MED ONE Stop: 07/09/16 07:19 Lidocaine HCl (Xylocaine 1%) Confirm Administered Dose 50 ml .ROUTE .STK-MED ONE Stop: 07/09/16 06:49 Losartan Potassium (Cozaar) 100 mg PO DAILY [facility] Metoprolol Succinate (Toprol Xl) 50 mg PO ONETIME ONE Stop: 07/12/16 00:19 Last Admin: 07/12/16 00:39 Dose: 50 mg Midazolam HCl (Versed 1 Mg/Ml) Confirm Administered Dose 2 mg .ROUTE .STK-MED ONE Stop: 07/09/16 07:15 Morphine Sulfate (Morphine) 4 mg IVPUSH Q4H PRN PRN Reason: moderate pain Ondansetron HCl (Zofran) Confirm Administered Dose 4 mg .ROUTE .STK-MED ONE Stop: 07/09/16 07:16 Oxycodone HCl (Oxycontin) 10 mg PO ONARRIVE [facility] Stop: 07/09/16 12:01 Last Admin: 07/09/16 07:27 Dose: 10 mg Oxycodone HCl (Oxycodone) 5 - 10 mg PO Q4H PRN PRN Reason: Pain Last Admin: 07/11/16 16:26 Dose: 10 mg Oxycodone HCl (Oxycontin) 10 mg PO Q12HR [facility] Last Admin: 07/11/16 22:21 Dose: Not Given Phenylephrine HCl (Alexis-Synephrine) Confirm Administered Dose 10 mg .ROUTE .STK- MED ONE Stop: 07/09/16 08:53 Potassium Chloride (Klor-Con M20) 20 meq PO DAILY [facility] Propofol (Diprivan 20 Ml) Confirm Administered Dose 400 mg .ROUTE .STK-MED ONE Stop: 07/09/16 07:15 Propofol (Diprivan 20 Ml) Confirm Administered Dose 200 mg .ROUTE .STK-MED ONE Stop: 07/09/16 07:19 Succinylcholine Chloride (Succinylcholine In Ns Pf) Confirm Administered Dose 200 mg .ROUTE .STK-MED ONE Stop: 07/09/16 07:17 Tranexamic Acid (Cyklokapron) Confirm Administered Dose 4,000 mg .ROUTE .STK- MED ONE Stop: 07/09/16 07:12 - Exam Quality Assessment: supplemental oxygen General: alert, cooperative Neck: supple Lungs: Rales (rales over the left lateral inferior chest. ) Cardiovascular: Regular Rhythm Psy/Mental Status: alert. No: agitated Consult PN Assessment/Plan Procedures: Procedures ASSAY OF IRON (02/21/15) CHEST X-RAY 2VW FRONTAL&LATL (04/30/16) COMPLETE CBC AUTOMATED (12/07/14) COMPLETE CBC W/AUTO DIFF WBC (06/25/16) COMPREHEN METABOLIC PANEL (06/25/16) ELECTROCARDIOGRAM TRACING (04/30/16) GLYCOSYLATED HEMOGLOBIN TEST (06/08/16) LIPID PANEL (04/30/16) MEDICAL NUTRITION INDIV IN (01/20/15) MRI JNT OF LWR EXTRE W/O DYE (04/24/16) OFFICE/OUTPATIENT VISIT EST (01/17/15) OFFICE/OUTPATIENT VISIT NEW (12/09/14) PROTHROMBIN TIME (06/25/16) ROUTINE VENIPUNCTURE (06/25/16) THROMBOPLASTIN TIME PARTIAL (06/25/16) TTE W/DOPPLER COMPLETE (12/31/14) URINALYSIS AUTO W/SCOPE (06/25/16) X-RAY EXAM KNEE 4 OR MORE (03/29/16) (1) Myoclonic jerking SNOMED Code(s): 75678279, 202393774 Code(s): G25.3 - MYOCLONUS Current Visit: Yes (2) Medication side effect SNOMED Code(s): 89999264 Code(s): T88.7XXA - UNSP ADVERSE EFFECT OF DRUG OR MEDICAMENT, INIT ENCNTR Current Visit: Yes (3) A-fib SNOMED Code(s): 49863981 Code(s): I48.91 - UNSPECIFIED ATRIAL FIBRILLATION Current Visit: Yes (4) LOUISE (acute kidney injury) SNOMED Code(s): 44130425 Code(s): N17.9 - ACUTE KIDNEY FAILURE, UNSPECIFIED Current Visit: Yes (5) DM type 2 (diabetes mellitus, type 2) SNOMED Code(s): 85518233 Code(s): E11.9 - TYPE 2 DIABETES MELLITUS WITHOUT COMPLICATIONS Current Visit: Yes Qualifiers: Diabetes mellitus complication status: without complication Diabetes mellitus [facility] insulin use: with vp communications use Qualified Code(s): E11.9 - Type 2 diabetes mellitus without complications; Z79.4 - nursing home (current) use of insulin (6) HTN (hypertension) SNOMED Code(s): 37128066 Code(s): I10 - ESSENTIAL (PRIMARY) HYPERTENSION Current Visit: Yes Qualifiers: Hypertension type: essential hypertension Qualified Code(s): I10 - Essential (primary) hypertension (7) Morbid obesity with BMI of 40.0-44.9, adult SNOMED Code(s): 093696878 Code(s): E66.01 - MORBID (SEVERE) OBESITY DUE TO EXCESS CALORIES; Z68.41 - BODY MASS INDEX (BMI) 40.0-44.9, ADULT Current Visit: Yes (8) S/P total knee arthroplasty SNOMED Code(s): 7534754495839, 897307604, 1116301739290 Code(s): Z96.659 - PRESENCE OF UNSPECIFIED ARTIFICIAL KNEE JOINT Current Visit: Yes Qualifiers: Laterality: right Qualified Code(s): Z96.651 - Presence of right artificial knee joint (9) CHF (congestive heart failure) SNOMED Code(s): 74552694 Code(s): I50.9 - HEART FAILURE, UNSPECIFIED Current Visit: Yes Qualifiers: Congestive heart failure type: systolic (10) Pneumonia SNOMED Code(s): 730339338 Code(s): J18.9 - PNEUMONIA, UNSPECIFIED ORGANISM Current Visit: Yes Problem List Initiated/Reviewed/Updated: Yes My Orders last 24 hours: My Active Orders 07/12/16 09:00 Metoprolol Succinate [Toprol XL] 50 mg PO DAILY 07/12/16 20:26 CXR [Chest 1V Frontal] [CR] Routine Plan: CXR c/w pulmonary edema I am concerned that he may also have a hospital acquired pneumonia will give lasix 80 mg IV now add broad spectrum antibiotics urinary bleeding likely related to batres trauma.
[2016-07-12] MEDS ORDERED: Furosemide 40 MG/4 ML VIAL IVPUSH ONE (21:24)
[2016-07-12] MEDS: Piperacillin/Tazobactam 2.25 GM in Sodium Chloride 0.9% 50 ML IV SCH (21:48)
[2016-07-12] MEDS: Sodium Chloride 0.9% 1,000 ML IV SCH (21:51)
[2016-07-12] MEDS ORDERED: Levofloxacin/Dextrose 5%-Water 750 MG in Premix Bag 1 BAG IV SCH (22:00)
[2016-07-12] MEDS ORDERED: Vancomycin 2 GM in Sodium Chloride 0.9% 500 ML IV SCH ×2 (22:00→22:30)
[2016-07-13] MEDS ORDERED: Levofloxacin/Dextrose 5%-Water 750 MG in Premix Bag 1 BAG IV SCH ×2
[2016-07-13] MEDS: Acetaminophen 500 MG Tab PO SCH ×3 (01:06→13:28)
[2016-07-13] MEDS: Piperacillin/Tazobactam 2.25 GM in Sodium Chloride 0.9% 50 ML IV SCH ×3 (03:57→15:36)
[2016-07-13] MEDS: Insulin Aspart 100 Units/ML 3 ML Pen SUBCUT SCH ×3 (07:12→16:47)
--- NOTE | 2016-07-13 08:12 | PCM.SURGPN ---
<Frida Hart R - Last Filed: 07/13/16 08:07> - General Info Date of Service: 07/13/16 Date of Surgery/Procedure: 07/09/16 POD#: 4 Functional Status: Reports: tolerating diet - Review of Systems General: Reports: Malaise, Chills, Other (body aches, specifically back ache) Pulmonary: Reports: shortness of breath, cough. Denies: sputum Musculoskeletal: Reports: leg pain Systems Review Comment:: pt up to chair for breakfast has been awake since 0200 with body/back aches, unable to get comfortable complains of chills, nonproductive cough, body/back aches pain increases with activity - Patient Data Vitals - most recent: Last Vital Signs Temp 97.8 F 07/13/16 07:38 Pulse 83 07/13/16 07:38 Resp 20 07/13/16 07:38 BP 105/59 L 07/13/16 07:38 Pulse Ox 90 L 07/13/16 07:38 Weight - most recent: 139.253 kg I&O - last 24 hours: Intake & Output 07/12/16 07/13/16 07/13/16 22:59 06:59 14:59 Intake Total 1690 2717 Output Total 450 1700 Balance 1240 1017 Lab Results last 24 hrs: Laboratory Results - last 24 hr 07/12/16 07/12/16 07/12/16 Range/Units 04:17 07:55 11:31 WBC 11.12 H (4.0-11.0) K/uL RBC 3.87 L (4.50-5.90) M/uL Hgb 11.3 L (13.0-17.0) g/dL Hct 36.7 L (38.0-50.0) % MCV 94.8 (80.0-98.0) fL MCH 29.2 (27.0-32.0) pg MCHC 30.8 L (31.0-37.0) g/dL RDW Std Deviation 55.6 (28.0-62.0) fl RDW Coeff of [place] 16 H (11.0-15.0) % Plt Count 190 (150-400) K/uL MPV 10.20 (7.40-12.00) fL Neut % (Auto) (48.0-80.0) % Lymph % (Auto) (16.0-40.0) % [place] % (Auto) (0.0-15.0) % Eos % (Auto) (0.0-7.0) % Baso % (Auto) (0.0-1.5) % Neut # (Auto) (1.4-5.7) K/uL Lymph # (Auto) (0.6-2.4) K/uL [place] # (Auto) (0.0-0.8) K/uL Eos # (Auto) (0.0-0.7) K/uL Baso # (Auto) (0.0-0.1) K/uL Add Manual Diff YES Neutrophils % (Manual) 69 (48.0-80.0) % Band Neutrophils % 4 % Lymphocytes % (Manual) 20 (16.0-40.0) % Monocytes % (Manual) 4 (0.0-15.0) % Eosinophils % (Manual) 3 (0.0-7.0) % Nucleated RBC % 0.0 /100WBC Absolute Seg Neuts 7.7 Band Neutrophils # 0.4 Lymphocytes # (Manual) 2.2 Monocytes # (Manual) 0.4 Eosinophils # (Manual) 0.3 Nucleated RBCs # 0 K/uL Sodium (136-146) mmol/L Potassium (3.5-5.1) mmol/L Chloride (98-110) mmol/L Carbon Dioxide (21-31) mmol/L BUN (6.0-23.0) mg/dL Creatinine (0.6-1.5) mg/dL Est Cr Clr Drug Dosing mL/min Estimated GFR (MDRD) ml/min Glucose (60-110) mg/dL POC Glucose 135 H (60-110) mg/dL Calcium (8.8-10.8) mg/dL Magnesium (1.5-2.3) mEq/L Urine Color RED Urine Appearance SLT CLOUDY Urine pH 5.0 (5.0-8.0) Ur Specific [place] 1.025 (1.001-1.035) Urine Protein >=300 (NEGATIVE) mg/dL Urine Glucose (UA) NEGATIVE (NEGATIVE) mg/dL Urine Ketones TRACE H (NEGATIVE) mg/dL Urine Occult Blood LARGE H (NEGATIVE) Urine Nitrite POSITIVE H (NEGATIVE) Urine Bilirubin MODERATE H (NEGATIVE) Urine Ictotest NEGATIVE Urine Urobilinogen 1.0 (<2.0) EU/dL Ur Leukocyte Esterase TRACE (NEGATIVE) Urine RBC TOO NUMBEROUS TO CT (0-2/HPF) Urine WBC 0-3 (0-5/HPF) Ur Epithelial Cells RARE (NONE-FEW) Urine Bacteria 1+ H (NEGATIVE) Urine Mucus (NONE-MOD) Ur Random Creatinine mg/dL Ur Random Sodium mmol/L 07/12/16 07/12/16 07/12/16 Range/Units 16:30 17:12 17:12 WBC 11.89 H (4.0-11.0) K/uL RBC 4.01 L (4.50-5.90) M/uL Hgb 11.7 L (13.0-17.0) g/dL Hct 37.9 L (38.0-50.0) % MCV 94.5 (80.0-98.0) fL MCH 29.2 (27.0-32.0) pg MCHC 30.9 L (31.0-37.0) g/dL RDW Std Deviation 56.3 (28.0-62.0) fl RDW Coeff of [place] 16 H (11.0-15.0) % Plt Count 180 (150-400) K/uL MPV 9.60 (7.40-12.00) fL Neut % (Auto) 75.4 (48.0-80.0) % Lymph % (Auto) 12.4 L (16.0-40.0) % [place] % (Auto) 10.0 (0.0-15.0) % Eos % (Auto) 2.1 (0.0-7.0) % Baso % (Auto) 0.1 (0.0-1.5) % Neut # (Auto) 9.0 H (1.4-5.7) K/uL Lymph # (Auto) 1.5 (0.6-2.4) K/uL [place] # (Auto) 1.2 H (0.0-0.8) K/uL Eos # (Auto) 0.3 (0.0-0.7) K/uL Baso # (Auto) 0.0 (0.0-0.1) K/uL Add Manual Diff Neutrophils % (Manual) (48.0-80.0) % Band Neutrophils % % Lymphocytes % (Manual) (16.0-40.0) % Monocytes % (Manual) (0.0-15.0) % Eosinophils % (Manual) (0.0-7.0) % Nucleated RBC % 0.0 /100WBC Absolute Seg Neuts Band Neutrophils # Lymphocytes # (Manual) Monocytes # (Manual) Eosinophils # (Manual) Nucleated RBCs # 0 K/uL Sodium 135 L (136-146) mmol/L Potassium 5.2 H (3.5-5.1) mmol/L Chloride 102 (98-110) mmol/L Carbon Dioxide 25 (21-31) mmol/L BUN 61 H (6.0-23.0) mg/dL Creatinine 2.4 H (0.6-1.5) mg/dL Est Cr Clr Drug Dosing 27.10 mL/min Estimated GFR (MDRD) 26.5 ml/min Glucose 133 H (60-110) mg/dL POC Glucose 136 H (60-110) mg/dL Calcium 8.8 (8.8-10.8) mg/dL Magnesium (1.5-2.3) mEq/L Urine Color Urine Appearance Urine pH (5.0-8.0) Ur Specific [place] (1.001-1.035) Urine Protein (NEGATIVE) mg/dL Urine Glucose (UA) (NEGATIVE) mg/dL Urine Ketones (NEGATIVE) mg/dL Urine Occult Blood (NEGATIVE) Urine Nitrite (NEGATIVE) Urine Bilirubin (NEGATIVE) Urine Ictotest Urine Urobilinogen (<2.0) EU/dL Ur Leukocyte Esterase (NEGATIVE) Urine RBC (0-2/HPF) Urine WBC (0-5/HPF) Ur Epithelial Cells (NONE-FEW) Urine Bacteria (NEGATIVE) Urine Mucus (NONE-MOD) Ur Random Creatinine mg/dL Ur Random Sodium mmol/L 07/12/16 07/12/16 07/12/16 Range/Units 17:49 17:49 20:39 WBC (4.0-11.0) K/uL RBC (4.50-5.90) M/uL Hgb (13.0-17.0) g/dL Hct (38.0-50.0) % MCV (80.0-98.0) fL MCH (27.0-32.0) pg MCHC (31.0-37.0) g/dL RDW Std Deviation (28.0-62.0) fl RDW Coeff of [place] (11.0-15.0) % Plt Count (150-400) K/uL MPV (7.40-12.00) fL Neut % (Auto) (48.0-80.0) % Lymph % (Auto) (16.0-40.0) % [place] % (Auto) (0.0-15.0) % Eos % (Auto) (0.0-7.0) % Baso % (Auto) (0.0-1.5) % Neut # (Auto) (1.4-5.7) K/uL Lymph # (Auto) (0.6-2.4) K/uL [place] # (Auto) (0.0-0.8) K/uL Eos # (Auto) (0.0-0.7) K/uL Baso # (Auto) (0.0-0.1) K/uL Add Manual Diff Neutrophils % (Manual) (48.0-80.0) % Band Neutrophils % % Lymphocytes % (Manual) (16.0-40.0) % Monocytes % (Manual) (0.0-15.0) % Eosinophils % (Manual) (0.0-7.0) % Nucleated RBC % /100WBC Absolute Seg Neuts Band Neutrophils # Lymphocytes # (Manual) Monocytes # (Manual) Eosinophils # (Manual) Nucleated RBCs # K/uL Sodium (136-146) mmol/L Potassium (3.5-5.1) mmol/L Chloride (98-110) mmol/L Carbon Dioxide (21-31) mmol/L BUN (6.0-23.0) mg/dL Creatinine (0.6-1.5) mg/dL Est Cr Clr Drug Dosing mL/min Estimated GFR (MDRD) ml/min Glucose (60-110) mg/dL POC Glucose 150 H (60-110) mg/dL Calcium (8.8-10.8) mg/dL Magnesium (1.5-2.3) mEq/L Urine Color [place]OWN Urine Appearance CLOUDY Urine pH 5.0 (5.0-8.0) Ur Specific [place] 1.020 (1.001-1.035) Urine Protein 30 (NEGATIVE) mg/dL Urine Glucose (UA) NEGATIVE (NEGATIVE) mg/dL Urine Ketones NEGATIVE (NEGATIVE) mg/dL Urine Occult Blood LARGE H (NEGATIVE) Urine Nitrite NEGATIVE (NEGATIVE) Urine Bilirubin NEGATIVE (NEGATIVE) Urine Ictotest Urine Urobilinogen 0.2 (<2.0) EU/dL Ur Leukocyte Esterase TRACE (NEGATIVE) Urine RBC TOO NUMBEROUS TO CT (0-2/HPF) Urine WBC 0-1 (0-5/HPF) Ur Epithelial Cells OCCASIONAL (NONE-FEW) Urine Bacteria FEW (NEGATIVE) Urine Mucus LIGHT (NONE-MOD) Ur Random Creatinine 88.6 mg/dL Ur Random Sodium < 20.0 mmol/L 07/13/16 07/13/16 07/13/16 Range/Units 04:33 04:33 04:33 WBC 11.14 H (4.0-11.0) K/uL RBC 3.55 L (4.50-5.90) M/uL Hgb 10.5 L (13.0-17.0) g/dL Hct 33.2 L (38.0-50.0) % MCV 93.5 (80.0-98.0) fL MCH 29.6 (27.0-32.0) pg MCHC 31.6 (31.0-37.0) g/dL RDW Std Deviation 54.8 (28.0-62.0) fl RDW Coeff of [place] 16 H (11.0-15.0) % Plt Count 177 (150-400) K/uL MPV 10.00 (7.40-12.00) fL Neut % (Auto) 73.1 (48.0-80.0) % Lymph % (Auto) 12.0 L (16.0-40.0) % [place] % (Auto) 11.9 (0.0-15.0) % Eos % (Auto) 2.8 (0.0-7.0) % Baso % (Auto) 0.2 (0.0-1.5) % Neut # (Auto) 8.1 H (1.4-5.7) K/uL Lymph # (Auto) 1.3 (0.6-2.4) K/uL [place] # (Auto) 1.3 H (0.0-0.8) K/uL Eos # (Auto) 0.3 (0.0-0.7) K/uL Baso # (Auto) 0.0 (0.0-0.1) K/uL Add Manual Diff Neutrophils % (Manual) (48.0-80.0) % Band Neutrophils % % Lymphocytes % (Manual) (16.0-40.0) % Monocytes % (Manual) (0.0-15.0) % Eosinophils % (Manual) (0.0-7.0) % Nucleated RBC % 0.0 /100WBC Absolute Seg Neuts Band Neutrophils # Lymphocytes # (Manual) Monocytes # (Manual) Eosinophils # (Manual) Nucleated RBCs # 0 K/uL Sodium 137 (136-146) mmol/L Potassium 4.6 (3.5-5.1) mmol/L Chloride 106 (98-110) mmol/L Carbon Dioxide 20 L (21-31) mmol/L BUN 61 H (6.0-23.0) mg/dL Creatinine 1.8 H (0.6-1.5) mg/dL Est Cr Clr Drug Dosing 36.14 mL/min Estimated GFR (MDRD) 36.9 ml/min Glucose 119 H (60-110) mg/dL POC Glucose (60-110) mg/dL Calcium 7.9 L (8.8-10.8) mg/dL Magnesium 2.1 (1.5-2.3) mEq/L Urine Color Urine Appearance Urine pH (5.0-8.0) Ur Specific [place] (1.001-1.035) Urine Protein (NEGATIVE) mg/dL Urine Glucose (UA) (NEGATIVE) mg/dL Urine Ketones (NEGATIVE) mg/dL Urine Occult Blood (NEGATIVE) Urine Nitrite (NEGATIVE) Urine Bilirubin (NEGATIVE) Urine Ictotest Urine Urobilinogen (<2.0) EU/dL Ur Leukocyte Esterase (NEGATIVE) Urine RBC (0-2/HPF) Urine WBC (0-5/HPF) Ur Epithelial Cells (NONE-FEW) Urine Bacteria (NEGATIVE) Urine Mucus (NONE-MOD) Ur Random Creatinine mg/dL Ur Random Sodium mmol/L 07/13/16 07/13/16 Range/Units 05:26 05:57 WBC (4.0-11.0) K/uL RBC (4.50-5.90) M/uL Hgb (13.0-17.0) g/dL Hct (38.0-50.0) % MCV (80.0-98.0) fL MCH (27.0-32.0) pg MCHC (31.0-37.0) g/dL RDW Std Deviation (28.0-62.0) fl RDW Coeff of [place] (11.0-15.0) % Plt Count (150-400) K/uL MPV (7.40-12.00) fL Neut % (Auto) (48.0-80.0) % Lymph % (Auto) (16.0-40.0) % [place] % (Auto) (0.0-15.0) % Eos % (Auto) (0.0-7.0) % Baso % (Auto) (0.0-1.5) % Neut # (Auto) (1.4-5.7) K/uL Lymph # (Auto) (0.6-2.4) K/uL [place] # (Auto) (0.0-0.8) K/uL Eos # (Auto) (0.0-0.7) K/uL Baso # (Auto) (0.0-0.1) K/uL Add Manual Diff Neutrophils % (Manual) (48.0-80.0) % Band Neutrophils % % Lymphocytes % (Manual) (16.0-40.0) % Monocytes % (Manual) (0.0-15.0) % Eosinophils % (Manual) (0.0-7.0) % Nucleated RBC % /100WBC Absolute Seg Neuts Band Neutrophils # Lymphocytes # (Manual) Monocytes # (Manual) Eosinophils # (Manual) Nucleated RBCs # K/uL Sodium (136-146) mmol/L Potassium (3.5-5.1) mmol/L Chloride (98-110) mmol/L Carbon Dioxide (21-31) mmol/L BUN (6.0-23.0) mg/dL Creatinine (0.6-1.5) mg/dL Est Cr Clr Drug Dosing mL/min Estimated GFR (MDRD) ml/min Glucose (60-110) mg/dL POC Glucose 112 H (60-110) mg/dL Calcium (8.8-10.8) mg/dL Magnesium (1.5-2.3) mEq/L Urine Color YELLOW Urine Appearance CLEAR Urine pH 5.0 (5.0-8.0) Ur Specific [place] 1.020 (1.001-1.035) Urine Protein TRACE (NEGATIVE) mg/dL Urine Glucose (UA) NEGATIVE (NEGATIVE) mg/dL Urine Ketones NEGATIVE (NEGATIVE) mg/dL Urine Occult Blood LARGE H (NEGATIVE) Urine Nitrite NEGATIVE (NEGATIVE) Urine Bilirubin NEGATIVE (NEGATIVE) Urine Ictotest Urine Urobilinogen 0.2 (<2.0) EU/dL Ur Leukocyte Esterase NEGATIVE (NEGATIVE) Urine RBC 6-10 (0-2/HPF) Urine WBC 0-2 (0-5/HPF) Ur Epithelial Cells RARE (NONE-FEW) Urine Bacteria RARE (NEGATIVE) Urine Mucus (NONE-MOD) Ur Random Creatinine mg/dL Ur Random Sodium mmol/L [place] Results last 24 hrs: Microbiology 07/12/16 18:22 Anaerobic Blood Culture - Final Blood - Venous - Lab Draw Med Orders - Current: Current Medications Acetaminophen (Tylenol Extra Strength) 1,000 mg PO Q6H [facility] Last Admin: 07/13/16 01:06 Dose: 1,000 mg Al Hydroxide/Mg Hydroxide (Mag-Al Plus) 30 ml PO Q4H PRN PRN Reason: indigestion Aspirin (Aspirin) 325 mg PO BID [facility] Last Admin: 07/12/16 21:01 Dose: 325 mg Bisacodyl (Dulcolax) 10 mg RECTAL DAILY PRN PRN Reason: Constipation Diphenhydramine HCl (Benadryl) 25 - 50 mg PO Q6H PRN PRN Reason: Itching Docusate Sodium (Colace) 100 mg PO BID [facility] Last Admin: 07/12/16 20:59 Dose: 100 mg Sodium Chloride (Normal Saline) 1,000 mls @ 125 mls/hr IV ASDIRECTED [facility] Last Admin: 07/12/16 21:51 Dose: 125 mls/hr Piperacillin Sod/Tazobactam (Sod 2.25 gm/ Sodium Chloride) 50 mls @ 100 mls/hr IV Q6H [facility] Last Admin: 07/13/16 03:57 Dose: 100 mls/hr Levofloxacin/Dextrose 750 mg/ (Premix) 150 mls @ 100 mls/hr IV Q48H [facility] Last Admin: 07/13/16 00:18 Dose: 100 mls/hr Vancomycin HCl 2 gm/ Sodium (Chloride) 500 mls @ 333.333 mls/hr IV Q24H [facility] Last Admin: 07/12/16 22:36 Dose: 333.333 mls/hr Insulin Aspart (Novolog) 0 unit SUBCUT TIDAC [facility] PRN Reason: Protocol Last Admin: 07/13/16 07:12 Dose: Not Given Insulin Detemir (Levemir) 40 unit SUBCUT BEDTIME [facility] Last Admin: 07/12/16 20:52 Dose: 40 units Metoprolol Succinate (Toprol Xl) 50 mg PO DAILY [facility] Last Admin: 07/12/16 08:06 Dose: 50 mg Ondansetron HCl (Zofran) 4 mg IV Q6HR PRN PRN Reason: NAUSEA/VOMITING Last Admin: 07/11/16 08:28 Dose: 4 mg Oxybutynin Chloride (Oxybutynin) 5 mg PO BEDTIME [facility] Last Admin: 07/12/16 20:58 Dose: 5 mg Scopolamine (Transderm-Scop) 1.5 mg TRDERM ONARRIVE [facility] Last Admin: 07/09/16 07:27 Dose: 1.5 mg Vancomycin HCl (Pharmacy To Dose - Vancomycin) 1 dose .XX ASDIRECTED [facility] Discontinued Medications Celecoxib (Celebrex) 200 mg PO DAILY [facility] Ephedrine Sulfate (Ephedrine Sulfate) Confirm Administered Dose 100 mg .ROUTE .STK-MED ONE Stop: 07/09/16 07:16 Famotidine (Pepcid) 40 mg IVPUSH ONARRIVE [facility] Stop: 07/09/16 12:01 Last Admin: 07/09/16 07:28 Dose: 40 mg Fentanyl (Sublimaze) Confirm Administered Dose 100 mcg .ROUTE .STK-MED ONE Stop: 07/09/16 07:15 Fentanyl (Sublimaze) Confirm Administered Dose 100 mcg .ROUTE .STK-MED ONE Stop: 07/09/16 07:16 Fentanyl (Sublimaze) 50 mcg IVPUSH Q5M PRN PRN Reason: Pain (severe 7-10) Stop: 07/10/16 09:42 Last Admin: 07/09/16 11:18 Dose: 50 mcg Furosemide (Lasix) 80 mg PO BID [facility] Last Admin: 07/09/16 20:38 Dose: 80 mg Furosemide (Lasix) 80 mg PO BIDDIURETIC [facility] Last Admin: 07/12/16 08:06 Dose: 80 mg Furosemide (Lasix) 80 mg IVPUSH NOW ONE Stop: 07/12/16 21:25 Last Admin: 07/12/16 21:46 Dose: 80 mg Hydromorphone HCl (Dilaudid) 0.5 - 1 mg IVPUSH Q3H PRN PRN Reason: Pain Last Admin: 07/10/16 11:28 Dose: 1 mg Hydromorphone HCl (Dilaudid) 0.5 - 1 mg IVPUSH Q3H PRN PRN Reason: Pain Last Admin: 07/11/16 17:53 Dose: 1 mg Acetaminophen 1,000 mg/ Premix 100 mls @ 400 mls/hr IV ONARRIVE [facility] Stop: 07/09/16 12:01 Ropivacaine 49.25 ml/Ketorolac Tromethamine 30 mg/Epinephrine HCl 0.5 mg/ Clonidine HCl 80 mcg/ Sodium Chloride 100 mls @ 50 mls/min INJECT ASDIRECTED [facility] Stop: 07/09/16 12:01 Lactated Ringer's (Ringers, Lactated) 1,000 mls @ 100 mls/hr IV ASDIRECTED [facility] Last Admin: 07/09/16 07:25 Dose: 100 mls/hr Tranexamic Acid 4,000 mg/ (Sodium Chloride) 140 mls @ 600 mls/hr IV ASDIRECTED [facility] Stop: 07/09/16 12:01 Cefazolin Sodium/Dextrose 2 gm (/ Premix) 50 mls @ 100 mls/hr IV ONCALL [facility] Stop: 07/09/16 12:01 Dextrose/Water (Dextrose 5% In Water) 500 mls @ 75 mls/hr IV ASDIRECTED [facility] Last Admin: 07/09/16 07:26 Dose: 75 mls/hr Acetaminophen (Ofirmev) 1,000 mls @ 4,000 mls/hr IV ONARRIVE [facility] Stop: 07/09/16 12:01 Last Admin: 07/09/16 07:27 Dose: 4,000 mls/hr Cefazolin Sodium/Dextrose 2 gm (/ Premix) 50 mls @ 100 mls/hr IV Q8HR [facility] Stop: 07/09/16 22:29 Last Infusion: 07/09/16 17:28 Dose: Infused Cefazolin Sodium/Dextrose 2 gm (/ Premix) 50 mls @ 100 mls/hr IV Q8HR [facility] Stop: 07/10/16 03:29 Last Admin: 07/10/16 05:49 Dose: Not Given Ceftriaxone Sodium/Dextrose 1 (gm/ Premix) 50 mls @ 100 mls/hr IV ONETIME ONE Stop: 07/12/16 09:29 Last Admin: 07/12/16 09:31 Dose: 100 mls/hr Sodium Chloride (Normal Saline) 1,000 mls @ 125 mls/hr IV ASDIRECTED [facility] Last Admin: 07/12/16 09:31 Dose: 75 mls/hr Ceftriaxone Sodium/Dextrose 1 (gm/ Premix) 50 mls @ 100 mls/hr IV Q24H [facility] Levofloxacin/Dextrose 750 mg/ (Premix) 150 mls @ 100 mls/hr IV Q48H [facility] Last Admin: 07/12/16 22:54 Dose: Not Given Vancomycin HCl 2 gm/ Sodium (Chloride) 500 mls @ 333.333 mls/hr IV Q24H [facility] Last Admin: 07/12/16 22:54 Dose: Not Given Ketorolac Tromethamine (Toradol) 15 mg IVPUSH ONARRIVE [facility] Last Admin: 07/09/16 07:28 Dose: 15 mg Ketorolac Tromethamine (Toradol) 15 mg IVPUSH Q6H [facility] Stop: 07/10/16 03:01 Ketorolac Tromethamine (Toradol) 15 mg IVPUSH Q6H [facility] Stop: 07/17/16 00:01 Last Admin: 07/12/16 05:13 Dose: 15 mg Lidocaine (Xylocaine-Mpf 2%) Confirm Administered Dose 10 ml .ROUTE .STK-MED ONE Stop: 07/09/16 07:15 Lidocaine (Xylocaine-Mpf 2%) Confirm Administered Dose 5 ml .ROUTE .STK-MED ONE Stop: 07/09/16 07:19 Lidocaine HCl (Xylocaine 1%) Confirm Administered Dose 50 ml .ROUTE .STK-MED ONE Stop: 07/09/16 06:49 Losartan Potassium (Cozaar) 100 mg PO DAILY [facility] Metoprolol Succinate (Toprol Xl) 50 mg PO ONETIME ONE Stop: 07/12/16 00:19 Last Admin: 07/12/16 00:39 Dose: 50 mg Midazolam HCl (Versed 1 Mg/Ml) Confirm Administered Dose 2 mg .ROUTE .STK-MED ONE Stop: 07/09/16 07:15 Morphine Sulfate (Morphine) 4 mg IVPUSH Q4H PRN PRN Reason: moderate pain Ondansetron HCl (Zofran) Confirm Administered Dose 4 mg .ROUTE .STK-MED ONE Stop: 07/09/16 07:16 Oxycodone HCl (Oxycontin) 10 mg PO ONARRIVE [facility] Stop: 07/09/16 12:01 Last Admin: 07/09/16 07:27 Dose: 10 mg Oxycodone HCl (Oxycodone) 5 - 10 mg PO Q4H PRN PRN Reason: Pain Last Admin: 07/11/16 16:26 Dose: 10 mg Oxycodone HCl (Oxycontin) 10 mg PO Q12HR [facility] Last Admin: 07/11/16 22:21 Dose: Not Given Phenylephrine HCl (Alexis-Synephrine) Confirm Administered Dose 10 mg .ROUTE .STK- MED ONE Stop: 07/09/16 08:53 Potassium Chloride (Klor-Con M20) 20 meq PO DAILY [facility] Propofol (Diprivan 20 Ml) Confirm Administered Dose 400 mg .ROUTE .STK-MED ONE Stop: 07/09/16 07:15 Propofol (Diprivan 20 Ml) Confirm Administered Dose 200 mg .ROUTE .STK-MED ONE Stop: 07/09/16 07:19 Succinylcholine Chloride (Succinylcholine In Ns Pf) Confirm Administered Dose 200 mg .ROUTE .STK-MED ONE Stop: 07/09/16 07:17 Tranexamic Acid (Cyklokapron) Confirm Administered Dose 4,000 mg .ROUTE .STK- MED ONE Stop: 07/09/16 07:12 - Exam Wound/Incisions: dressing dry and intact. No: drainage, erythema General: alert, oriented Cardiovascular: Regular Rate, Regular Rhythm Extremities: normal pulses, no calf tenderness, other (1-2+ edema BLE. RLE - at/ ehl/gastroc 5/5, dp 2+, sensation intact distally. ) Physical Findings Comment:: vss, afeb WBC 11.14 hgb 10.5 BUN/Cr 61/1.8 blood cultures pending most recent UA shows large blood, RBCs, negative nitrites and leukocyte esterase , 0-2 WBC - Problem List Review Problem List Initiated/Reviewed/Updated: Yes - My Orders Last 24 Hours: Active Orders 24 hr Category Date Time Status Communication Order [RC] DAILY Care 07/12/16 17:13 Active CXR [Chest 1V Frontal] [CR] Routine Exams 07/12/16 20:26 Taken CULTURE BLOOD [BC] Stat Lab 07/12/16 18:11 Received CULTURE BLOOD [BC] Stat Lab 07/12/16 18:22 Results CULTURE URINE [RM] Routine Lab 07/12/16 07:55 Received MG [MAGNESIUM] [CHEM] AM Lab 07/14/16 05:11 Ordered MG [MAGNESIUM] [CHEM] AM Lab 07/15/16 05:11 Ordered VANCOMYCIN TROUGH [CHEM] Routine Lab 07/14/16 22:00 Ordered Levofloxacin/Dextrose 5%-Water [Levaquin in D5W 750 MG/ Med 07/13/16 00:00 Active 150 ML] 750 mg Premix Bag 1 bag IV Q48H Metoprolol Succinate [Toprol XL] Med 07/12/16 09:00 Active 50 mg PO DAILY Piperacillin/Tazobactam [Zosyn] 2.25 gm Med 07/12/16 22:00 Active Sodium Chloride 0.9% [Normal Saline] 50 ml IV Q6H Sodium Chloride 0.9% [Normal Saline] 1,000 ml Med 07/12/16 18:15 Active IV ASDIRECTED Vancomycin 2 gm Med 07/12/16 22:30 Active Sodium Chloride 0.9% [Normal Saline] 500 ml IV Q24H Vancomycin Pharmacy to Dose [Pharmacy to Dose - Med 07/12/16 21:30 Pending Vancomycin] 1 dose .XX ASDIRECTED Blood Culture x2 Reflex Set [OM.PC] Stat Oth 07/12/16 17:43 Ordered Medication Orders Acetaminophen (Tylenol Extra Strength) 1,000 mg PO Q6H [facility] Last Admin: 07/13/16 01:06 Dose: 1,000 mg Admin: 07/12/16 20:57 Dose: 1,000 mg Admin: 07/12/16 13:45 Dose: 1,000 mg Admin: 07/12/16 08:04 Dose: 1,000 mg Admin: 07/12/16 02:05 Dose: 1,000 mg Admin: 07/11/16 20:45 Dose: 1,000 mg Admin: 07/11/16 14:04 Dose: 1,000 mg Admin: 07/11/16 08:27 Dose: 1,000 mg Admin: 07/11/16 02:33 Dose: 1,000 mg Admin: 07/10/16 20:10 Dose: 1,000 mg Admin: 07/10/16 15:03 Dose: 1,000 mg Admin: 07/10/16 08:37 Dose: 1,000 mg Admin: 07/10/16 05:59 Dose: Admin: 07/09/16 20:37 Dose: 1,000 mg Admin: 07/09/16 13:50 Dose: 1,000 mg Al Hydroxide/Mg Hydroxide (Mag-Al Plus) 30 ml PO Q4H PRN PRN Reason: indigestion Aspirin (Aspirin) 325 mg PO BID [facility] Last Admin: 07/12/16 21:01 Dose: 325 mg Admin: 07/12/16 08:06 Dose: 325 mg Admin: 07/11/16 20:49 Dose: 325 mg Admin: 07/11/16 08:27 Dose: 325 mg Admin: 07/10/16 20:09 Dose: 325 mg Admin: 07/10/16 08:39 Dose: 325 mg Bisacodyl (Dulcolax) 10 mg RECTAL DAILY PRN PRN Reason: Constipation Diphenhydramine HCl (Benadryl) 25 - 50 mg PO Q6H PRN PRN Reason: Itching Docusate Sodium (Colace) 100 mg PO BID [facility] Last Admin: 07/12/16 20:59 Dose: 100 mg Admin: 07/12/16 08:05 Dose: 100 mg Admin: 07/11/16 20:50 Dose: 100 mg Admin: 07/11/16 08:27 Dose: 100 mg Admin: 07/10/16 20:11 Dose: 100 mg Admin: 07/10/16 08:39 Dose: 100 mg Admin: 07/09/16 20:38 Dose: 100 mg Sodium Chloride (Normal Saline) 1,000 mls @ 125 mls/hr IV ASDIRECTED [facility] Last Admin: 07/12/16 21:51 Dose: 125 mls/hr Piperacillin Sod/Tazobactam (Sod 2.25 gm/ Sodium Chloride) 50 mls @ 100 mls/hr IV Q6H [facility] Last Admin: 07/13/16 03:57 Dose: 100 mls/hr Infusion: 07/12/16 22:18 Dose: 100 mls/hr Admin: 07/12/16 21:48 Dose: 100 mls/hr Levofloxacin/Dextrose 750 mg/ (Premix) 150 mls @ 100 mls/hr IV Q48H [facility] Last Admin: 07/13/16 00:18 Dose: 100 mls/hr Vancomycin HCl 2 gm/ Sodium (Chloride) 500 mls @ 333.333 mls/hr IV Q24H [facility] Last Admin: 07/12/16 22:36 Dose: 333.333 mls/hr Insulin Aspart (Novolog) 0 unit SUBCUT TIDAC [facility] PRN Reason: Protocol Last Admin: 07/13/16 07:12 Dose: Admin: 07/12/16 17:01 Dose: Not Given Admin: 07/12/16 12:26 Dose: Not Given Admin: 07/12/16 08:18 Dose: Not Given Admin: 07/11/16 17:00 Dose: Not Given Admin: 07/11/16 11:34 Dose: 2 units Admin: 07/11/16 07:14 Dose: 2 units Admin: 07/10/16 16:47 Dose: Not Given Admin: 07/10/16 11:32 Dose: 2 units Admin: 07/10/16 06:30 Dose: Not Given Admin: 07/09/16 17:30 Dose: Not Given Insulin Detemir (Levemir) 40 unit SUBCUT BEDTIME [facility] Last Admin: 07/12/16 20:52 Dose: 40 units Admin: 07/11/16 21:08 Dose: 40 units Admin: 07/10/16 20:11 Dose: 40 units Admin: 07/09/16 21:14 Dose: 40 units Metoprolol Succinate (Toprol Xl) 50 mg PO DAILY [facility] Last Admin: 07/12/16 08:06 Dose: 50 mg Ondansetron HCl (Zofran) 4 mg IV Q6HR PRN PRN Reason: NAUSEA/VOMITING Last Admin: 07/11/16 08:28 Dose: 4 mg Oxybutynin Chloride (Oxybutynin) 5 mg PO BEDTIME [facility] Last Admin: 07/12/16 20:58 Dose: 5 mg Admin: 07/11/16 20:50 Dose: 5 mg Admin: 07/10/16 20:11 Dose: 5 mg Admin: 07/09/16 20:38 Dose: 5 mg Scopolamine (Transderm-Scop) 1.5 mg TRDERM ONARRIVE [facility] Last Admin: 07/09/16 07:27 Dose: 1.5 mg Vancomycin HCl (Pharmacy To Dose - Vancomycin) 1 dose .XX ASDIRECTED [facility] - Assessment Assessment (Free Text/Narrative):: POD#4 R TKA acute posthemorrhagic anemia other medical diagnoses per hospitalist service - Plan Plan (Free Text/Narrative):: continue with pain management and PT appreciate hospitalist assistance/management of pt likely disposition is hospital stay through weekend for IV abx for HAP orthopedically stable will discuss discharge with hospitalist once medically appropriate <Angelique Rankin R - Last Filed: 07/13/16 15:04> - Patient Data Vitals - most recent: Last Vital Signs Temp 96.6 F 07/13/16 12:00 Pulse 80 07/13/16 12:00 Resp 22 H 07/13/16 12:00 BP 117/59 L 07/13/16 12:00 Pulse Ox 97 07/13/16 12:00 I&O - last 24 hours: Intake & Output 07/13/16 07/13/16 07/13/16 06:59 14:59 22:59 Intake Total 2717 50 Output Total 1700 Balance 1017 50 Lab Results last 24 hrs: Laboratory Results - last 24 hr 07/12/16 07/12/16 07/12/16 Range/Units 16:30 17:12 17:12 WBC 11.89 H (4.0-11.0) K/uL RBC 4.01 L (4.50-5.90) M/uL Hgb 11.7 L (13.0-17.0) g/dL Hct 37.9 L (38.0-50.0) % MCV 94.5 (80.0-98.0) fL MCH 29.2 (27.0-32.0) pg MCHC 30.9 L (31.0-37.0) g/dL RDW Std Deviation 56.3 (28.0-62.0) fl RDW Coeff of [place] 16 H (11.0-15.0) % Plt Count 180 (150-400) K/uL MPV 9.60 (7.40-12.00) fL Neut % (Auto) 75.4 (48.0-80.0) % Lymph % (Auto) 12.4 L (16.0-40.0) % [place] % (Auto) 10.0 (0.0-15.0) % Eos % (Auto) 2.1 (0.0-7.0) % Baso % (Auto) 0.1 (0.0-1.5) % Neut # (Auto) 9.0 H (1.4-5.7) K/uL Lymph # (Auto) 1.5 (0.6-2.4) K/uL [place] # (Auto) 1.2 H (0.0-0.8) K/uL Eos # (Auto) 0.3 (0.0-0.7) K/uL Baso # (Auto) 0.0 (0.0-0.1) K/uL Nucleated RBC % 0.0 /100WBC Nucleated RBCs # 0 K/uL Sodium 135 L (136-146) mmol/L Potassium 5.2 H (3.5-5.1) mmol/L Chloride 102 (98-110) mmol/L Carbon Dioxide 25 (21-31) mmol/L BUN 61 H (6.0-23.0) mg/dL Creatinine 2.4 H (0.6-1.5) mg/dL Est Cr Clr Drug Dosing 27.10 mL/min Estimated GFR (MDRD) 26.5 ml/min Glucose 133 H (60-110) mg/dL POC Glucose 136 H (60-110) mg/dL Calcium 8.8 (8.8-10.8) mg/dL Magnesium (1.5-2.3) mEq/L Urine Color Urine Appearance Urine pH (5.0-8.0) Ur Specific [place] (1.001-1.035) Urine Protein (NEGATIVE) mg/dL Urine Glucose (UA) (NEGATIVE) mg/dL Urine Ketones (NEGATIVE) mg/dL Urine Occult Blood (NEGATIVE) Urine Nitrite (NEGATIVE) Urine Bilirubin (NEGATIVE) Urine Urobilinogen (<2.0) EU/dL Ur Leukocyte Esterase (NEGATIVE) Urine RBC (0-2/HPF) Urine WBC (0-5/HPF) Ur Epithelial Cells (NONE-FEW) Urine Bacteria (NEGATIVE) Urine Mucus (NONE-MOD) Ur Random Creatinine mg/dL Ur Random Sodium mmol/L 07/12/16 07/12/16 07/12/16 Range/Units 17:49 17:49 20:39 WBC (4.0-11.0) K/uL RBC (4.50-5.90) M/uL Hgb (13.0-17.0) g/dL Hct (38.0-50.0) % MCV (80.0-98.0) fL MCH (27.0-32.0) pg MCHC (31.0-37.0) g/dL RDW Std Deviation (28.0-62.0) fl RDW Coeff of [place] (11.0-15.0) % Plt Count (150-400) K/uL MPV (7.40-12.00) fL Neut % (Auto) (48.0-80.0) % Lymph % (Auto) (16.0-40.0) % [place] % (Auto) (0.0-15.0) % Eos % (Auto) (0.0-7.0) % Baso % (Auto) (0.0-1.5) % Neut # (Auto) (1.4-5.7) K/uL Lymph # (Auto) (0.6-2.4) K/uL [place] # (Auto) (0.0-0.8) K/uL Eos # (Auto) (0.0-0.7) K/uL Baso # (Auto) (0.0-0.1) K/uL Nucleated RBC % /100WBC Nucleated RBCs # K/uL Sodium (136-146) mmol/L Potassium (3.5-5.1) mmol/L Chloride (98-110) mmol/L Carbon Dioxide (21-31) mmol/L BUN (6.0-23.0) mg/dL Creatinine (0.6-1.5) mg/dL Est Cr Clr Drug Dosing mL/min Estimated GFR (MDRD) ml/min Glucose (60-110) mg/dL POC Glucose 150 H (60-110) mg/dL Calcium (8.8-10.8) mg/dL Magnesium (1.5-2.3) mEq/L Urine Color BROWN Urine Appearance CLOUDY Urine pH 5.0 (5.0-8.0) Ur Specific [place] 1.020 (1.001-1.035) Urine Protein 30 (NEGATIVE) mg/dL Urine Glucose (UA) NEGATIVE (NEGATIVE) mg/dL Urine Ketones NEGATIVE (NEGATIVE) mg/dL Urine Occult Blood LARGE H (NEGATIVE) Urine Nitrite NEGATIVE (NEGATIVE) Urine Bilirubin NEGATIVE (NEGATIVE) Urine Urobilinogen 0.2 (<2.0) EU/dL Ur Leukocyte Esterase TRACE (NEGATIVE) Urine RBC TOO NUMBEROUS TO CT (0-2/HPF) Urine WBC 0-1 (0-5/HPF) Ur Epithelial Cells OCCASIONAL (NONE-FEW) Urine Bacteria FEW (NEGATIVE) Urine Mucus LIGHT (NONE-MOD) Ur Random Creatinine 88.6 mg/dL Ur Random Sodium < 20.0 mmol/L 07/13/16 07/13/16 07/13/16 Range/Units 04:33 04:33 04:33 WBC 11.14 H (4.0-11.0) K/uL RBC 3.55 L (4.50-5.90) M/uL Hgb 10.5 L (13.0-17.0) g/dL Hct 33.2 L (38.0-50.0) % MCV 93.5 (80.0-98.0) fL MCH 29.6 (27.0-32.0) pg MCHC 31.6 (31.0-37.0) g/dL RDW Std Deviation 54.8 (28.0-62.0) fl RDW Coeff of [place] 16 H (11.0-15.0) % Plt Count 177 (150-400) K/uL MPV 10.00 (7.40-12.00) fL Neut % (Auto) 73.1 (48.0-80.0) % Lymph % (Auto) 12.0 L (16.0-40.0) % [place] % (Auto) 11.9 (0.0-15.0) % Eos % (Auto) 2.8 (0.0-7.0) % Baso % (Auto) 0.2 (0.0-1.5) % Neut # (Auto) 8.1 H (1.4-5.7) K/uL Lymph # (Auto) 1.3 (0.6-2.4) K/uL [place] # (Auto) 1.3 H (0.0-0.8) K/uL Eos # (Auto) 0.3 (0.0-0.7) K/uL Baso # (Auto) 0.0 (0.0-0.1) K/uL Nucleated RBC % 0.0 /100WBC Nucleated RBCs # 0 K/uL Sodium 137 (136-146) mmol/L Potassium 4.6 (3.5-5.1) mmol/L Chloride 106 (98-110) mmol/L Carbon Dioxide 20 L (21-31) mmol/L BUN 61 H (6.0-23.0) mg/dL Creatinine 1.8 H (0.6-1.5) mg/dL Est Cr Clr Drug Dosing 36.14 mL/min Estimated GFR (MDRD) 36.9 ml/min Glucose 119 H (60-110) mg/dL POC Glucose (60-110) mg/dL Calcium 7.9 L (8.8-10.8) mg/dL Magnesium 2.1 (1.5-2.3) mEq/L Urine Color Urine Appearance Urine pH (5.0-8.0) Ur Specific [place] (1.001-1.035) Urine Protein (NEGATIVE) mg/dL Urine Glucose (UA) (NEGATIVE) mg/dL Urine Ketones (NEGATIVE) mg/dL Urine Occult Blood (NEGATIVE) Urine Nitrite (NEGATIVE) Urine Bilirubin (NEGATIVE) Urine Urobilinogen (<2.0) EU/dL Ur Leukocyte Esterase (NEGATIVE) Urine RBC (0-2/HPF) Urine WBC (0-5/HPF) Ur Epithelial Cells (NONE-FEW) Urine Bacteria (NEGATIVE) Urine Mucus (NONE-MOD) Ur Random Creatinine mg/dL Ur Random Sodium mmol/L 07/13/16 07/13/16 07/13/16 Range/Units 05:26 05:57 11:29 WBC (4.0-11.0) K/uL RBC (4.50-5.90) M/uL Hgb (13.0-17.0) g/dL Hct (38.0-50.0) % MCV (80.0-98.0) fL MCH (27.0-32.0) pg MCHC (31.0-37.0) g/dL RDW Std Deviation (28.0-62.0) fl RDW Coeff of [place] (11.0-15.0) % Plt Count (150-400) K/uL MPV (7.40-12.00) fL Neut % (Auto) (48.0-80.0) % Lymph % (Auto) (16.0-40.0) % [place] % (Auto) (0.0-15.0) % Eos % (Auto) (0.0-7.0) % Baso % (Auto) (0.0-1.5) % Neut # (Auto) (1.4-5.7) K/uL Lymph # (Auto) (0.6-2.4) K/uL [place] # (Auto) (0.0-0.8) K/uL Eos # (Auto) (0.0-0.7) K/uL Baso # (Auto) (0.0-0.1) K/uL Nucleated RBC % /100WBC Nucleated RBCs # K/uL Sodium (136-146) mmol/L Potassium (3.5-5.1) mmol/L Chloride (98-110) mmol/L Carbon Dioxide (21-31) mmol/L BUN (6.0-23.0) mg/dL Creatinine (0.6-1.5) mg/dL Est Cr Clr Drug Dosing mL/min Estimated GFR (MDRD) ml/min Glucose (60-110) mg/dL POC Glucose 112 H 138 H (60-110) mg/dL Calcium (8.8-10.8) mg/dL Magnesium (1.5-2.3) mEq/L Urine Color YELLOW Urine Appearance CLEAR Urine pH 5.0 (5.0-8.0) Ur Specific [place] 1.020 (1.001-1.035) Urine Protein TRACE (NEGATIVE) mg/dL Urine Glucose (UA) NEGATIVE (NEGATIVE) mg/dL Urine Ketones NEGATIVE (NEGATIVE) mg/dL Urine Occult Blood LARGE H (NEGATIVE) Urine Nitrite NEGATIVE (NEGATIVE) Urine Bilirubin NEGATIVE (NEGATIVE) Urine Urobilinogen 0.2 (<2.0) EU/dL Ur Leukocyte Esterase NEGATIVE (NEGATIVE) Urine RBC 6-10 (0-2/HPF) Urine WBC 0-2 (0-5/HPF) Ur Epithelial Cells RARE (NONE-FEW) Urine Bacteria RARE (NEGATIVE) Urine Mucus (NONE-MOD) Ur Random Creatinine mg/dL Ur Random Sodium mmol/L [place] Results last 24 hrs: Microbiology 07/12/16 07:55 Urine Culture - Preliminary Urine, [place] Cath ([place]) NO GROWTH AFTER 1 DAY 07/12/16 18:22 Anaerobic Blood Culture - Final Blood - Venous - Lab Draw Med Orders - Current: Current Medications Acetaminophen (Tylenol Extra Strength) 1,000 mg PO Q6H [facility] Last Admin: 07/13/16 13:28 Dose: 1,000 mg Hydrocodone Bitart/Acetaminophen (Pimento 325-5 Mg) 1 tab PO Q4H PRN PRN Reason: Pain Last Admin: 07/13/16 13:29 Dose: 1 tab Al Hydroxide/Mg Hydroxide (Mag-Al Plus) 30 ml PO Q4H PRN PRN Reason: indigestion Aspirin (Aspirin) 325 mg PO BID [facility] Last Admin: 07/13/16 08:34 Dose: 325 mg Bisacodyl (Dulcolax) 10 mg RECTAL DAILY PRN PRN Reason: Constipation Diphenhydramine HCl (Benadryl) 25 - 50 mg PO Q6H PRN PRN Reason: Itching Docusate Sodium (Colace) 100 mg PO BID [facility] Last Admin: 07/13/16 08:33 Dose: 100 mg Sodium Chloride (Normal Saline) 1,000 mls @ 125 mls/hr IV ASDIRECTED [facility] Last Admin: 07/13/16 09:51 Dose: 125 mls/hr Piperacillin Sod/Tazobactam (Sod 2.25 gm/ Sodium Chloride) 50 mls @ 100 mls/hr IV Q6H [facility] Last Admin: 07/13/16 09:51 Dose: 100 mls/hr Levofloxacin/Dextrose 750 mg/ (Premix) 150 mls @ 100 mls/hr IV Q48H [facility] Last Admin: 07/13/16 00:18 Dose: 100 mls/hr Vancomycin HCl 2 gm/ Sodium (Chloride) 500 mls @ 333.333 mls/hr IV Q24H [facility] Last Admin: 07/12/16 22:36 Dose: 333.333 mls/hr Insulin Aspart (Novolog) 0 unit SUBCUT TIDAC [facility] PRN Reason: Protocol Last Admin: 07/13/16 11:42 Dose: Not Given Insulin Detemir (Levemir) 40 unit SUBCUT BEDTIME [facility] Last Admin: 07/12/16 20:52 Dose: 40 units Metoprolol Succinate (Toprol Xl) 50 mg PO DAILY [facility] Last Admin: 07/13/16 08:34 Dose: 50 mg Ondansetron HCl (Zofran) 4 mg IV Q6HR PRN PRN Reason: NAUSEA/VOMITING Last Admin: 07/11/16 08:28 Dose: 4 mg Oxybutynin Chloride (Oxybutynin) 5 mg PO BEDTIME [facility] Last Admin: 07/12/16 20:58 Dose: 5 mg Scopolamine (Transderm-Scop) 1.5 mg TRDERM ONARRIVE [facility] Last Admin: 07/09/16 07:27 Dose: 1.5 mg Vancomycin HCl (Pharmacy To Dose - Vancomycin) 1 dose .XX ASDIRECTED [facility] Discontinued Medications Celecoxib (Celebrex) 200 mg PO DAILY [facility] Ephedrine Sulfate (Ephedrine Sulfate) Confirm Administered Dose 100 mg .ROUTE .STK-MED ONE Stop: 07/09/16 07:16 Famotidine (Pepcid) 40 mg IVPUSH ONARRIVE [facility] Stop: 07/09/16 12:01 Last Admin: 07/09/16 07:28 Dose: 40 mg Fentanyl (Sublimaze) Confirm Administered Dose 100 mcg .ROUTE .STK-MED ONE Stop: 07/09/16 07:15 Fentanyl (Sublimaze) Confirm Administered Dose 100 mcg .ROUTE .STK-MED ONE Stop: 07/09/16 07:16 Fentanyl (Sublimaze) 50 mcg IVPUSH Q5M PRN PRN Reason: Pain (severe 7-10) Stop: 07/10/16 09:42 Last Admin: 07/09/16 11:18 Dose: 50 mcg Furosemide (Lasix) 80 mg PO BID [facility] Last Admin: 07/09/16 20:38 Dose: 80 mg Furosemide (Lasix) 80 mg PO BIDDIURETIC [facility] Last Admin: 07/12/16 08:06 Dose: 80 mg Furosemide (Lasix) 80 mg IVPUSH NOW ONE Stop: 07/12/16 21:25 Last Admin: 07/12/16 21:46 Dose: 80 mg Hydromorphone HCl (Dilaudid) 0.5 - 1 mg IVPUSH Q3H PRN PRN Reason: Pain Last Admin: 05/09/17 11:28 Dose: 1 mg Hydromorphone HCl (Dilaudid) 0.5 - 1 mg IVPUSH Q3H PRN PRN Reason: Pain Last Admin: 07/11/16 17:53 Dose: 1 mg Acetaminophen 1,000 mg/ Premix 100 mls @ 400 mls/hr IV ONARRIVE [facility] Stop: 07/09/16 12:01 Ropivacaine 49.25 ml/Ketorolac Tromethamine 30 mg/Epinephrine HCl 0.5 mg/ Clonidine HCl 80 mcg/ Sodium Chloride 100 mls @ 50 mls/min INJECT ASDIRECTED [facility] Stop: 07/09/16 12:01 Lactated Ringer's (Ringers, Lactated) 1,000 mls @ 100 mls/hr IV ASDIRECTED [facility] Last Admin: 07/09/16 07:25 Dose: 100 mls/hr Tranexamic Acid 4,000 mg/ (Sodium Chloride) 140 mls @ 600 mls/hr IV ASDIRECTED [facility] Stop: 07/09/16 12:01 Cefazolin Sodium/Dextrose 2 gm (/ Premix) 50 mls @ 100 mls/hr IV ONCALL [facility] Stop: 07/09/16 12:01 Dextrose/Water (Dextrose 5% In Water) 500 mls @ 75 mls/hr IV ASDIRECTED [facility] Last Admin: 07/09/16 07:26 Dose: 75 mls/hr Acetaminophen (Ofirmev) 1,000 mls @ 4,000 mls/hr IV ONARRIVE [facility] Stop: 07/09/16 12:01 Last Admin: 07/09/16 07:27 Dose: 4,000 mls/hr Cefazolin Sodium/Dextrose 2 gm (/ Premix) 50 mls @ 100 mls/hr IV Q8HR [facility] Stop: 07/09/16 22:29 Last Infusion: 07/09/16 17:28 Dose: Infused Cefazolin Sodium/Dextrose 2 gm (/ Premix) 50 mls @ 100 mls/hr IV Q8HR [facility] Stop: 07/10/16 03:29 Last Admin: 07/10/16 05:49 Dose: Not Given Ceftriaxone Sodium/Dextrose 1 (gm/ Premix) 50 mls @ 100 mls/hr IV ONETIME ONE Stop: 07/12/16 09:29 Last Admin: 07/12/16 09:31 Dose: 100 mls/hr Sodium Chloride (Normal Saline) 1,000 mls @ 125 mls/hr IV ASDIRECTED [facility] Last Admin: 07/12/16 09:31 Dose: 75 mls/hr Ceftriaxone Sodium/Dextrose 1 (gm/ Premix) 50 mls @ 100 mls/hr IV Q24H [facility] Levofloxacin/Dextrose 750 mg/ (Premix) 150 mls @ 100 mls/hr IV Q48H [facility] Last Admin: 07/12/16 22:54 Dose: Not Given Vancomycin HCl 2 gm/ Sodium (Chloride) 500 mls @ 333.333 mls/hr IV Q24H [facility] Last Admin: 07/12/16 22:54 Dose: Not Given Ketorolac Tromethamine (Toradol) 15 mg IVPUSH ONARRIVE [facility] Last Admin: 07/09/16 07:28 Dose: 15 mg Ketorolac Tromethamine (Toradol) 15 mg IVPUSH Q6H [facility] Stop: 07/10/16 03:01 Ketorolac Tromethamine (Toradol) 15 mg IVPUSH Q6H [facility] Stop: 07/17/16 00:01 Last Admin: 07/12/16 05:13 Dose: 15 mg Lidocaine (Xylocaine-Mpf 2%) Confirm Administered Dose 10 ml .ROUTE .STK-MED ONE Stop: 07/09/16 07:15 Lidocaine (Xylocaine-Mpf 2%) Confirm Administered Dose 5 ml .ROUTE .STK-MED ONE Stop: 07/09/16 07:19 Lidocaine HCl (Xylocaine 1%) Confirm Administered Dose 50 ml .ROUTE .STK-MED ONE Stop: 07/09/16 06:49 Losartan Potassium (Cozaar) 100 mg PO DAILY [facility] Metoprolol Succinate (Toprol Xl) 50 mg PO ONETIME ONE Stop: 07/12/16 00:19 Last Admin: 07/12/16 00:39 Dose: 50 mg Midazolam HCl (Versed 1 Mg/Ml) Confirm Administered Dose 2 mg .ROUTE .STK-MED ONE Stop: 07/09/16 07:15 Morphine Sulfate (Morphine) 4 mg IVPUSH Q4H PRN PRN Reason: moderate pain Ondansetron HCl (Zofran) Confirm Administered Dose 4 mg .ROUTE .STK-MED ONE Stop: 07/09/16 07:16 Oxycodone HCl (Oxycontin) 10 mg PO ONARRIVE [facility] Stop: 07/09/16 12:01 Last Admin: 07/09/16 07:27 Dose: 10 mg Oxycodone HCl (Oxycodone) 5 - 10 mg PO Q4H PRN PRN Reason: Pain Last Admin: 07/11/16 16:26 Dose: 10 mg Oxycodone HCl (Oxycontin) 10 mg PO Q12HR [facility] Last Admin: 07/11/16 22:21 Dose: Not Given Phenylephrine HCl (Alexis-Synephrine) Confirm Administered Dose 10 mg .ROUTE .STK- MED ONE Stop: 07/09/16 08:53 Potassium Chloride (Klor-Con M20) 20 meq PO DAILY [facility] Propofol (Diprivan 20 Ml) Confirm Administered Dose 400 mg .ROUTE .STK-MED ONE Stop: 07/09/16 07:15 Propofol (Diprivan 20 Ml) Confirm Administered Dose 200 mg .ROUTE .STK-MED ONE Stop: 07/09/16 07:19 Succinylcholine Chloride (Succinylcholine In Ns Pf) Confirm Administered Dose 200 mg .ROUTE .STK-MED ONE Stop: 07/09/16 07:17 Tranexamic Acid (Cyklokapron) Confirm Administered Dose 4,000 mg .ROUTE .STK- MED ONE Stop: 07/09/16 07:12 - My Orders Last 24 Hours: Active Orders 24 hr Category Date Time Status Communication Order [RC] DAILY Care 07/12/16 17:13 Active CXR [Chest 1V Frontal] [CR] Routine Exams 07/12/16 20:26 Taken CULTURE BLOOD [BC] Stat Lab 07/12/16 18:11 Received CULTURE BLOOD [BC] Stat Lab 07/12/16 18:22 Results MG [MAGNESIUM] [CHEM] AM Lab 07/14/16 05:11 Ordered MG [MAGNESIUM] [CHEM] AM Lab 07/15/16 05:11 Ordered VANCOMYCIN TROUGH [CHEM] Routine Lab 07/14/16 22:00 Ordered Acetaminophen/HYDROcodone [Pimento 325-5 MG] Med 07/13/16 11:29 Active 1 tab PO Q4H PRN Levofloxacin/Dextrose 5%-Water [Levaquin in D5W 750 MG/ Med 07/13/16 00:00 Active 150 ML] 750 mg Premix Bag 1 bag IV Q48H Piperacillin/Tazobactam [Zosyn] 2.25 gm Med 07/12/16 22:00 Active Sodium Chloride 0.9% [Normal Saline] 50 ml IV Q6H Sodium Chloride 0.9% [Normal Saline] 1,000 ml Med 07/12/16 18:15 Active IV ASDIRECTED Vancomycin 2 gm Med 07/12/16 22:30 Active Sodium Chloride 0.9% [Normal Saline] 500 ml IV Q24H Vancomycin Pharmacy to Dose [Pharmacy to Dose - Med 07/12/16 21:30 Pending Vancomycin] 1 dose .XX ASDIRECTED Blood Culture x2 Reflex Set [OM.PC] Stat Oth 07/12/16 17:43 Ordered Medication Orders Acetaminophen (Tylenol Extra Strength) 1,000 mg PO Q6H [facility] Last Admin: 07/13/16 13:28 Dose: 1,000 mg Admin: 07/13/16 08:33 Dose: 1,000 mg Admin: 07/13/16 01:06 Dose: 1,000 mg Admin: 07/12/16 20:57 Dose: 1,000 mg Admin: 07/12/16 13:45 Dose: 1,000 mg Admin: 07/12/16 08:04 Dose: 1,000 mg Admin: 07/12/16 02:05 Dose: 1,000 mg Admin: 07/11/16 20:45 Dose: 1,000 mg Admin: 07/11/16 14:04 Dose: 1,000 mg Admin: 07/11/16 08:27 Dose: 1,000 mg Admin: 07/11/16 02:33 Dose: 1,000 mg Admin: 07/10/16 20:10 Dose: 1,000 mg Admin: 07/10/16 15:03 Dose: 1,000 mg Admin: 07/10/16 08:37 Dose: 1,000 mg Admin: 07/10/16 05:59 Dose: Admin: 07/09/16 20:37 Dose: 1,000 mg Admin: 07/09/16 13:50 Dose: 1,000 mg Hydrocodone Bitart/Acetaminophen (P[place] 325-5 Mg) 1 tab PO Q4H PRN PRN Reason: Pain Last Admin: 07/13/16 13:29 Dose: 1 tab Al Hydroxide/Mg Hydroxide (Mag-Al Plus) 30 ml PO Q4H PRN PRN Reason: indigestion Aspirin (Aspirin) 325 mg PO BID [facility] Last Admin: 07/13/16 08:34 Dose: 325 mg Admin: 07/12/16 21:01 Dose: 325 mg Admin: 07/12/16 08:06 Dose: 325 mg Admin: 07/11/16 20:49 Dose: 325 mg Admin: 07/11/16 08:27 Dose: 325 mg Admin: 07/10/16 20:09 Dose: 325 mg Admin: 07/10/16 08:39 Dose: 325 mg Bisacodyl (Dulcolax) 10 mg RECTAL DAILY PRN PRN Reason: Constipation Diphenhydramine HCl (Benadryl) 25 - 50 mg PO Q6H PRN PRN Reason: Itching Docusate Sodium (Colace) 100 mg PO BID [facility] Last Admin: 07/13/16 08:33 Dose: 100 mg Admin: 07/12/16 20:59 Dose: 100 mg Admin: 07/12/16 08:05 Dose: 100 mg Admin: 07/11/16 20:50 Dose: 100 mg Admin: 07/11/16 08:27 Dose: 100 mg Admin: 07/10/16 20:11 Dose: 100 mg Admin: 07/10/16 08:39 Dose: 100 mg Admin: 07/09/16 20:38 Dose: 100 mg Sodium Chloride (Normal Saline) 1,000 mls @ 125 mls/hr IV ASDIRECTED [facility] Last Admin: 07/13/16 09:51 Dose: 125 mls/hr Infusion: 07/13/16 05:51 Dose: 125 mls/hr Admin: 07/12/16 21:51 Dose: 125 mls/hr Piperacillin Sod/Tazobactam (Sod 2.25 gm/ Sodium Chloride) 50 mls @ 100 mls/hr IV Q6H [facility] Last Admin: 07/13/16 09:51 Dose: 100 mls/hr Infusion: 07/13/16 04:27 Dose: 100 mls/hr Admin: 07/13/16 03:57 Dose: 100 mls/hr Infusion: 07/12/16 22:18 Dose: 100 mls/hr Admin: 07/12/16 21:48 Dose: 100 mls/hr Levofloxacin/Dextrose 750 mg/ (Premix) 150 mls @ 100 mls/hr IV Q48H [facility] Last Admin: 07/13/16 00:18 Dose: 100 mls/hr Vancomycin HCl 2 gm/ Sodium (Chloride) 500 mls @ 333.333 mls/hr IV Q24H [facility] Last Admin: 07/12/16 22:36 Dose: 333.333 mls/hr Insulin Aspart (Novolog) 0 unit SUBCUT TIDAC [facility] PRN Reason: Protocol Last Admin: 07/13/16 11:42 Dose: Not Given Admin: 07/13/16 07:12 Dose: Admin: 07/12/16 17:01 Dose: Not Given Admin: 07/12/16 12:26 Dose: Not Given Admin: 07/12/16 08:18 Dose: Not Given Admin: 07/11/16 17:00 Dose: Not Given Admin: 07/11/16 11:34 Dose: 2 units Admin: 07/11/16 07:14 Dose: 2 units Admin: 07/10/16 16:47 Dose: Not Given Admin: 07/10/16 11:32 Dose: 2 units Admin: 07/10/16 06:30 Dose: Not Given Admin: 07/09/16 17:30 Dose: Not Given Insulin Detemir (Levemir) 40 unit SUBCUT BEDTIME [facility] Last Admin: 07/12/16 20:52 Dose: 40 units Admin: 07/11/16 21:08 Dose: 40 units Admin: 07/10/16 20:11 Dose: 40 units Admin: 07/09/16 21:14 Dose: 40 units Metoprolol Succinate (Toprol Xl) 50 mg PO DAILY [facility] Last Admin: 07/13/16 08:34 Dose: 50 mg Admin: 07/12/16 08:06 Dose: 50 mg Ondansetron HCl (Zofran) 4 mg IV Q6HR PRN PRN Reason: NAUSEA/VOMITING Last Admin: 07/11/16 08:28 Dose: 4 mg Oxybutynin Chloride (Oxybutynin) 5 mg PO BEDTIME [facility] Last Admin: 07/12/16 20:58 Dose: 5 mg Admin: 07/11/16 20:50 Dose: 5 mg Admin: 07/10/16 20:11 Dose: 5 mg Admin: 07/09/16 20:38 Dose: 5 mg Scopolamine (Transderm-Scop) 1.5 mg TRDERM ONARRIVE [facility] Last Admin: 07/09/16 07:27 Dose: 1.5 mg Vancomycin HCl (Pharmacy To Dose - Vancomycin) 1 dose .XX ASDIRECTED [facility] - Plan Plan (Free Text/Narrative):: 1500 Patient seen and examined. Agree with above note. Patient lying in bed. Pain controlled. Denies CP, SOB. Was up with PT today and ambulated in room. Dressing dry/intact. NVI. 1. ASA/SCD for DVT prophylaxis 2. continue PT 3. appreciate hospitalist care--likely hospital acquired pneumonia, treated with abx 4. will stay over weekend for medical management, possible transfer to [place] on Saturday rrk
[2016-07-13] MEDS: Docusate Sodium 100 MG Cap PO SCH ×2 (08:33→20:37)
[2016-07-13] MEDS: Aspirin 325 MG Tab PO SCH ×2 (08:34→20:36)
[2016-07-13] MEDS: Metoprolol Succinate 50 MG Tab.ER PO SCH (08:34)
[2016-07-13] MEDS ORDERED: cefTRIAXone 1 GM in Premix Bag 1 BAG IV SCH (09:00)
[2016-07-13] MEDS: Sodium Chloride 0.9% 1,000 ML IV SCH ×2 (09:51→18:26)
--- NOTE | 2016-07-13 11:33 | PCM.PN ---
- General Info Date of Service: 07/13/16 - Review of Systems General: Reports: No Symptoms - Patient Data Vitals - most recent: Last Vital Signs Temp 36.6 C 07/13/16 07:38 Pulse 83 07/13/16 08:34 Resp 20 07/13/16 07:38 BP 105/59 L 07/13/16 08:34 Pulse Ox 90 L 07/13/16 07:38 Weight - most recent: 139.253 kg I&O - last 24 hours: Intake & Output 07/12/16 07/13/16 07/13/16 22:59 06:59 14:59 Intake Total 1690 2717 50 Output Total 450 1700 Balance 1240 1017 50 Lab Results last 24 hrs: Laboratory Results - last 24 hr 07/12/16 07/12/16 07/12/16 Range/Units 11:31 16:30 17:12 WBC (4.0-11.0) K/uL RBC (4.50-5.90) M/uL Hgb (13.0-17.0) g/dL Hct (38.0-50.0) % MCV (80.0-98.0) fL MCH (27.0-32.0) pg MCHC (31.0-37.0) g/dL RDW Std Deviation (28.0-62.0) fl RDW Coeff of [place] (11.0-15.0) % Plt Count (150-400) K/uL MPV (7.40-12.00) fL Neut % (Auto) (48.0-80.0) % Lymph % (Auto) (16.0-40.0) % Davis % (Auto) (0.0-15.0) % Eos % (Auto) (0.0-7.0) % Baso % (Auto) (0.0-1.5) % Neut # (Auto) (1.4-5.7) K/uL Lymph # (Auto) (0.6-2.4) K/uL Davis # (Auto) (0.0-0.8) K/uL Eos # (Auto) (0.0-0.7) K/uL Baso # (Auto) (0.0-0.1) K/uL Nucleated RBC % /100WBC Nucleated RBCs # K/uL Sodium 135 L (136-146) mmol/L Potassium 5.2 H (3.5-5.1) mmol/L Chloride 102 (98-110) mmol/L Carbon Dioxide 25 (21-31) mmol/L BUN 61 H (6.0-23.0) mg/dL Creatinine 2.4 H (0.6-1.5) mg/dL Est Cr Clr Drug Dosing 27.10 mL/min Estimated GFR (MDRD) 26.5 ml/min Glucose 133 H (60-110) mg/dL POC Glucose 135 H 136 H (60-110) mg/dL Calcium 8.8 (8.8-10.8) mg/dL Magnesium (1.5-2.3) mEq/L Urine Color Urine Appearance Urine pH (5.0-8.0) Ur Specific [place] (1.001-1.035) Urine Protein (NEGATIVE) mg/dL Urine Glucose (UA) (NEGATIVE) mg/dL Urine Ketones (NEGATIVE) mg/dL Urine Occult Blood (NEGATIVE) Urine Nitrite (NEGATIVE) Urine Bilirubin (NEGATIVE) Urine Urobilinogen (<2.0) EU/dL Ur Leukocyte Esterase (NEGATIVE) Urine RBC (0-2/HPF) Urine WBC (0-5/HPF) Ur Epithelial Cells (NONE-FEW) Urine Bacteria (NEGATIVE) Urine Mucus (NONE-MOD) Ur Random Creatinine mg/dL Ur Random Sodium mmol/L 07/12/16 07/12/16 07/12/16 Range/Units 17:12 17:49 17:49 WBC 11.89 H (4.0-11.0) K/uL RBC 4.01 L (4.50-5.90) M/uL Hgb 11.7 L (13.0-17.0) g/dL Hct 37.9 L (38.0-50.0) % MCV 94.5 (80.0-98.0) fL MCH 29.2 (27.0-32.0) pg MCHC 30.9 L (31.0-37.0) g/dL RDW Std Deviation 56.3 (28.0-62.0) fl RDW Coeff of [place] 16 H (11.0-15.0) % Plt Count 180 (150-400) K/uL MPV 9.60 (7.40-12.00) fL Neut % (Auto) 75.4 (48.0-80.0) % Lymph % (Auto) 12.4 L (16.0-40.0) % Davis % (Auto) 10.0 (0.0-15.0) % Eos % (Auto) 2.1 (0.0-7.0) % Baso % (Auto) 0.1 (0.0-1.5) % Neut # (Auto) 9.0 H (1.4-5.7) K/uL Lymph # (Auto) 1.5 (0.6-2.4) K/uL Davis # (Auto) 1.2 H (0.0-0.8) K/uL Eos # (Auto) 0.3 (0.0-0.7) K/uL Baso # (Auto) 0.0 (0.0-0.1) K/uL Nucleated RBC % 0.0 /100WBC Nucleated RBCs # 0 K/uL Sodium (136-146) mmol/L Potassium (3.5-5.1) mmol/L Chloride (98-110) mmol/L Carbon Dioxide (21-31) mmol/L BUN (6.0-23.0) mg/dL Creatinine (0.6-1.5) mg/dL Est Cr Clr Drug Dosing mL/min Estimated GFR (MDRD) ml/min Glucose (60-110) mg/dL POC Glucose (60-110) mg/dL Calcium (8.8-10.8) mg/dL Magnesium (1.5-2.3) mEq/L Urine Color BROWN Urine Appearance CLOUDY Urine pH 5.0 (5.0-8.0) Ur Specific [place] 1.020 (1.001-1.035) Urine Protein 30 (NEGATIVE) mg/dL Urine Glucose (UA) NEGATIVE (NEGATIVE) mg/dL Urine Ketones NEGATIVE (NEGATIVE) mg/dL Urine Occult Blood LARGE H (NEGATIVE) Urine Nitrite NEGATIVE (NEGATIVE) Urine Bilirubin NEGATIVE (NEGATIVE) Urine Urobilinogen 0.2 (<2.0) EU/dL Ur Leukocyte Esterase TRACE (NEGATIVE) Urine RBC TOO NUMBEROUS TO CT (0-2/HPF) Urine WBC 0-1 (0-5/HPF) Ur Epithelial Cells OCCASIONAL (NONE-FEW) Urine Bacteria FEW (NEGATIVE) Urine Mucus LIGHT (NONE-MOD) Ur Random Creatinine 88.6 mg/dL Ur Random Sodium < 20.0 mmol/L 07/12/16 07/13/16 07/13/16 Range/Units 20:39 04:33 04:33 WBC 11.14 H (4.0-11.0) K/uL RBC 3.55 L (4.50-5.90) M/uL Hgb 10.5 L (13.0-17.0) g/dL Hct 33.2 L (38.0-50.0) % MCV 93.5 (80.0-98.0) fL MCH 29.6 (27.0-32.0) pg MCHC 31.6 (31.0-37.0) g/dL RDW Std Deviation 54.8 (28.0-62.0) fl RDW Coeff of [place] 16 H (11.0-15.0) % Plt Count 177 (150-400) K/uL MPV 10.00 (7.40-12.00) fL Neut % (Auto) 73.1 (48.0-80.0) % Lymph % (Auto) 12.0 L (16.0-40.0) % Davis % (Auto) 11.9 (0.0-15.0) % Eos % (Auto) 2.8 (0.0-7.0) % Baso % (Auto) 0.2 (0.0-1.5) % Neut # (Auto) 8.1 H (1.4-5.7) K/uL Lymph # (Auto) 1.3 (0.6-2.4) K/uL Davis # (Auto) 1.3 H (0.0-0.8) K/uL Eos # (Auto) 0.3 (0.0-0.7) K/uL Baso # (Auto) 0.0 (0.0-0.1) K/uL Nucleated RBC % 0.0 /100WBC Nucleated RBCs # 0 K/uL Sodium 137 (136-146) mmol/L Potassium 4.6 (3.5-5.1) mmol/L Chloride 106 (98-110) mmol/L Carbon Dioxide 20 L (21-31) mmol/L BUN 61 H (6.0-23.0) mg/dL Creatinine 1.8 H (0.6-1.5) mg/dL Est Cr Clr Drug Dosing 36.14 mL/min Estimated GFR (MDRD) 36.9 ml/min Glucose 119 H (60-110) mg/dL POC Glucose 150 H (60-110) mg/dL Calcium 7.9 L (8.8-10.8) mg/dL Magnesium (1.5-2.3) mEq/L Urine Color Urine Appearance Urine pH (5.0-8.0) Ur Specific [place] (1.001-1.035) Urine Protein (NEGATIVE) mg/dL Urine Glucose (UA) (NEGATIVE) mg/dL Urine Ketones (NEGATIVE) mg/dL Urine Occult Blood (NEGATIVE) Urine Nitrite (NEGATIVE) Urine Bilirubin (NEGATIVE) Urine Urobilinogen (<2.0) EU/dL Ur Leukocyte Esterase (NEGATIVE) Urine RBC (0-2/HPF) Urine WBC (0-5/HPF) Ur Epithelial Cells (NONE-FEW) Urine Bacteria (NEGATIVE) Urine Mucus (NONE-MOD) Ur Random Creatinine mg/dL Ur Random Sodium mmol/L 07/13/16 07/13/16 07/13/16 Range/Units 04:33 05:26 05:57 WBC (4.0-11.0) K/uL RBC (4.50-5.90) M/uL Hgb (13.0-17.0) g/dL Hct (38.0-50.0) % MCV (80.0-98.0) fL MCH (27.0-32.0) pg MCHC (31.0-37.0) g/dL RDW Std Deviation (28.0-62.0) fl RDW Coeff of [place] (11.0-15.0) % Plt Count (150-400) K/uL MPV (7.40-12.00) fL Neut % (Auto) (48.0-80.0) % Lymph % (Auto) (16.0-40.0) % Davis % (Auto) (0.0-15.0) % Eos % (Auto) (0.0-7.0) % Baso % (Auto) (0.0-1.5) % Neut # (Auto) (1.4-5.7) K/uL Lymph # (Auto) (0.6-2.4) K/uL Davis # (Auto) (0.0-0.8) K/uL Eos # (Auto) (0.0-0.7) K/uL Baso # (Auto) (0.0-0.1) K/uL Nucleated RBC % /100WBC Nucleated RBCs # K/uL Sodium (136-146) mmol/L Potassium (3.5-5.1) mmol/L Chloride (98-110) mmol/L Carbon Dioxide (21-31) mmol/L BUN (6.0-23.0) mg/dL Creatinine (0.6-1.5) mg/dL Est Cr Clr Drug Dosing mL/min Estimated GFR (MDRD) ml/min Glucose (60-110) mg/dL POC Glucose 112 H (60-110) mg/dL Calcium (8.8-10.8) mg/dL Magnesium 2.1 (1.5-2.3) mEq/L Urine Color YELLOW Urine Appearance CLEAR Urine pH 5.0 (5.0-8.0) Ur Specific [place] 1.020 (1.001-1.035) Urine Protein TRACE (NEGATIVE) mg/dL Urine Glucose (UA) NEGATIVE (NEGATIVE) mg/dL Urine Ketones NEGATIVE (NEGATIVE) mg/dL Urine Occult Blood LARGE H (NEGATIVE) Urine Nitrite NEGATIVE (NEGATIVE) Urine Bilirubin NEGATIVE (NEGATIVE) Urine Urobilinogen 0.2 (<2.0) EU/dL Ur Leukocyte Esterase NEGATIVE (NEGATIVE) Urine RBC 6-10 (0-2/HPF) Urine WBC 0-2 (0-5/HPF) Ur Epithelial Cells RARE (NONE-FEW) Urine Bacteria RARE (NEGATIVE) Urine Mucus (NONE-MOD) Ur Random Creatinine mg/dL Ur Random Sodium mmol/L [place] Results last 24 hrs: Microbiology 07/12/16 07:55 Urine Culture - Preliminary Urine, [place] Cath ([place]) NO GROWTH AFTER 1 DAY 07/12/16 18:22 Anaerobic Blood Culture - Final Blood - Venous - Lab Draw Med Orders - Current: Current Medications Acetaminophen (Tylenol Extra Strength) 1,000 mg PO Q6H [facility] Last Admin: 07/13/16 08:33 Dose: 1,000 mg Hydrocodone Bitart/Acetaminophen ([place] 325-5 Mg) 1 tab PO Q4H PRN PRN Reason: Pain Al Hydroxide/Mg Hydroxide (Mag-Al Plus) 30 ml PO Q4H PRN PRN Reason: indigestion Aspirin (Aspirin) 325 mg PO BID [facility] Last Admin: 07/13/16 08:34 Dose: 325 mg Bisacodyl (Dulcolax) 10 mg RECTAL DAILY PRN PRN Reason: Constipation Diphenhydramine HCl (Benadryl) 25 - 50 mg PO Q6H PRN PRN Reason: Itching Docusate Sodium (Colace) 100 mg PO BID [facility] Last Admin: 07/13/16 08:33 Dose: 100 mg Sodium Chloride (Normal Saline) 1,000 mls @ 125 mls/hr IV ASDIRECTED [facility] Last Admin: 07/13/16 09:51 Dose: 125 mls/hr Piperacillin Sod/Tazobactam (Sod 2.25 gm/ Sodium Chloride) 50 mls @ 100 mls/hr IV Q6H [facility] Last Admin: 07/13/16 09:51 Dose: 100 mls/hr Levofloxacin/Dextrose 750 mg/ (Premix) 150 mls @ 100 mls/hr IV Q48H [facility] Last Admin: 07/13/16 00:18 Dose: 100 mls/hr Vancomycin HCl 2 gm/ Sodium (Chloride) 500 mls @ 333.333 mls/hr IV Q24H [facility] Last Admin: 07/12/16 22:36 Dose: 333.333 mls/hr Insulin Aspart (Novolog) 0 unit SUBCUT TIDAC [facility] PRN Reason: Protocol Last Admin: 07/13/16 07:12 Dose: Not Given Insulin Detemir (Levemir) 40 unit SUBCUT BEDTIME [facility] Last Admin: 07/12/16 20:52 Dose: 40 units Metoprolol Succinate (Toprol Xl) 50 mg PO DAILY [facility] Last Admin: 07/13/16 08:34 Dose: 50 mg Ondansetron HCl (Zofran) 4 mg IV Q6HR PRN PRN Reason: NAUSEA/VOMITING Last Admin: 07/11/16 08:28 Dose: 4 mg Oxybutynin Chloride (Oxybutynin) 5 mg PO BEDTIME [facility] Last Admin: 07/12/16 20:58 Dose: 5 mg Scopolamine (Transderm-Scop) 1.5 mg TRDERM ONARRIVE [facility] Last Admin: 07/09/16 07:27 Dose: 1.5 mg Vancomycin HCl (Pharmacy To Dose - Vancomycin) 1 dose .XX ASDIRECTED [facility] Discontinued Medications Celecoxib (Celebrex) 200 mg PO DAILY [facility] Ephedrine Sulfate (Ephedrine Sulfate) Confirm Administered Dose 100 mg .ROUTE .STK-MED ONE Stop: 07/09/16 07:16 Famotidine (Pepcid) 40 mg IVPUSH ONARRIVE [facility] Stop: 07/09/16 12:01 Last Admin: 07/09/16 07:28 Dose: 40 mg Fentanyl (Sublimaze) Confirm Administered Dose 100 mcg .ROUTE .STK-MED ONE Stop: 07/09/16 07:15 Fentanyl (Sublimaze) Confirm Administered Dose 100 mcg .ROUTE .STK-MED ONE Stop: 07/09/16 07:16 Fentanyl (Sublimaze) 50 mcg IVPUSH Q5M PRN PRN Reason: Pain (severe 7-10) Stop: 07/10/16 09:42 Last Admin: 07/09/16 11:18 Dose: 50 mcg Furosemide (Lasix) 80 mg PO BID [facility] Last Admin: 07/09/16 20:38 Dose: 80 mg Furosemide (Lasix) 80 mg PO BIDDIURETIC [facility] Last Admin: 07/12/16 08:06 Dose: 80 mg Furosemide (Lasix) 80 mg IVPUSH NOW ONE Stop: 07/12/16 21:25 Last Admin: 07/12/16 21:46 Dose: 80 mg Hydromorphone HCl (Dilaudid) 0.5 - 1 mg IVPUSH Q3H PRN PRN Reason: Pain Last Admin: 07/10/16 11:28 Dose: 1 mg Hydromorphone HCl (Dilaudid) 0.5 - 1 mg IVPUSH Q3H PRN PRN Reason: Pain Last Admin: 07/11/16 17:53 Dose: 1 mg Acetaminophen 1,000 mg/ Premix 100 mls @ 400 mls/hr IV ONARRIVE [facility] Stop: 07/09/16 12:01 Ropivacaine 49.25 ml/Ketorolac Tromethamine 30 mg/Epinephrine HCl 0.5 mg/ Clonidine HCl 80 mcg/ Sodium Chloride 100 mls @ 50 mls/min INJECT ASDIRECTED [facility] Stop: 07/09/16 12:01 Lactated Ringer's (Ringers, Lactated) 1,000 mls @ 100 mls/hr IV ASDIRECTED [facility] Last Admin: 07/09/16 07:25 Dose: 100 mls/hr Tranexamic Acid 4,000 mg/ (Sodium Chloride) 140 mls @ 600 mls/hr IV ASDIRECTED [facility] Stop: 07/09/16 12:01 Cefazolin Sodium/Dextrose 2 gm (/ Premix) 50 mls @ 100 mls/hr IV ONCALL [facility] Stop: 07/09/16 12:01 Dextrose/Water (Dextrose 5% In Water) 500 mls @ 75 mls/hr IV ASDIRECTED [facility] Last Admin: 07/09/16 07:26 Dose: 75 mls/hr Acetaminophen (Ofirmev) 1,000 mls @ 4,000 mls/hr IV ONARRIVE [facility] Stop: 07/09/16 12:01 Last Admin: 07/09/16 07:27 Dose: 4,000 mls/hr Cefazolin Sodium/Dextrose 2 gm (/ Premix) 50 mls @ 100 mls/hr IV Q8HR [facility] Stop: 07/09/16 22:29 Last Infusion: 07/09/16 17:28 Dose: Infused Cefazolin Sodium/Dextrose 2 gm (/ Premix) 50 mls @ 100 mls/hr IV Q8HR [facility] Stop: 07/10/16 03:29 Last Admin: 07/10/16 05:49 Dose: Not Given Ceftriaxone Sodium/Dextrose 1 (gm/ Premix) 50 mls @ 100 mls/hr IV ONETIME ONE Stop: 07/12/16 09:29 Last Admin: 07/12/16 09:31 Dose: 100 mls/hr Sodium Chloride (Normal Saline) 1,000 mls @ 125 mls/hr IV ASDIRECTED [facility] Last Admin: 07/12/16 09:31 Dose: 75 mls/hr Ceftriaxone Sodium/Dextrose 1 (gm/ Premix) 50 mls @ 100 mls/hr IV Q24H [facility] Levofloxacin/Dextrose 750 mg/ (Premix) 150 mls @ 100 mls/hr IV Q48H [facility] Last Admin: 07/12/16 22:54 Dose: Not Given Vancomycin HCl 2 gm/ Sodium (Chloride) 500 mls @ 333.333 mls/hr IV Q24H [facility] Last Admin: 07/12/16 22:54 Dose: Not Given Ketorolac Tromethamine (Toradol) 15 mg IVPUSH ONARRIVE [facility] Last Admin: 07/09/16 07:28 Dose: 15 mg Ketorolac Tromethamine (Toradol) 15 mg IVPUSH Q6H [facility] Stop: 07/10/16 03:01 Ketorolac Tromethamine (Toradol) 15 mg IVPUSH Q6H [facility] Stop: 07/17/16 00:01 Last Admin: 07/12/16 05:13 Dose: 15 mg Lidocaine (Xylocaine-Mpf 2%) Confirm Administered Dose 10 ml .ROUTE .STK-MED ONE Stop: 07/09/16 07:15 Lidocaine (Xylocaine-Mpf 2%) Confirm Administered Dose 5 ml .ROUTE .STK-MED ONE Stop: 07/09/16 07:19 Lidocaine HCl (Xylocaine 1%) Confirm Administered Dose 50 ml .ROUTE .STK-MED ONE Stop: 07/09/16 06:49 Losartan Potassium (Cozaar) 100 mg PO DAILY [facility] Metoprolol Succinate (Toprol Xl) 50 mg PO ONETIME ONE Stop: 07/12/16 00:19 Last Admin: 07/12/16 00:39 Dose: 50 mg Midazolam HCl (Versed 1 Mg/Ml) Confirm Administered Dose 2 mg .ROUTE .STK-MED ONE Stop: 07/09/16 07:15 Morphine Sulfate (Morphine) 4 mg IVPUSH Q4H PRN PRN Reason: moderate pain Ondansetron HCl (Zofran) Confirm Administered Dose 4 mg .ROUTE .STK-MED ONE Stop: 07/09/16 07:16 Oxycodone HCl (Oxycontin) 10 mg PO ONARRIVE [facility] Stop: 07/09/16 12:01 Last Admin: 07/09/16 07:27 Dose: 10 mg Oxycodone HCl (Oxycodone) 5 - 10 mg PO Q4H PRN PRN Reason: Pain Last Admin: 07/11/16 16:26 Dose: 10 mg Oxycodone HCl (Oxycontin) 10 mg PO Q12HR [facility] Last Admin: 07/11/16 22:21 Dose: Not Given Phenylephrine HCl (Alexis-Synephrine) Confirm Administered Dose 10 mg .ROUTE .STK- MED ONE Stop: 07/09/16 08:53 Potassium Chloride (Klor-Con M20) 20 meq PO DAILY [facility] Propofol (Diprivan 20 Ml) Confirm Administered Dose 400 mg .ROUTE .STK-MED ONE Stop: 07/09/16 07:15 Propofol (Diprivan 20 Ml) Confirm Administered Dose 200 mg .ROUTE .STK-MED ONE Stop: 07/09/16 07:19 Succinylcholine Chloride (Succinylcholine In Ns Pf) Confirm Administered Dose 200 mg .ROUTE .STK-MED ONE Stop: 07/09/16 07:17 Tranexamic Acid (Cyklokapron) Confirm Administered Dose 4,000 mg .ROUTE .STK- MED ONE Stop: 07/09/16 07:12 - My Orders Last 24 Hours: My Active Orders 07/12/16 17:13 Communication Order [RC] DAILY 07/12/16 17:43 Blood Culture x2 Reflex Set [OM.PC] Stat 07/12/16 18:11 CULTURE BLOOD [BC] Stat 07/12/16 18:15 Sodium Chloride 0.9% [Normal Saline] 1,000 ml IV ASDIRECTED 07/12/16 18:22 CULTURE BLOOD [BC] Stat 07/13/16 11:29 Acetaminophen/HYDROcodone [[place] 325-5 MG] 1 tab PO Q4H PRN - Plan Plan:: This 75 year old male admitted with R TKA, hospitalist service consulted for medical management of DM, HTN, and Afib 1. S/P R TKA: Per Ortho. 2. HTN: Obtained BMP, K+ 5.4, BUN 25 and Cr 1.5. Mg 1.8. No peaked Ts on EKG. Baseline Cr 1.5. Continue Losartan and Lasix 80 mg BID. Did discontinue Toradol and Celebrex due to renal function and cardiac risk profile. 3. DM type 2: Hold oral agents, may restart upon discharge home. Will Continue Levemir. Novolog SSI with meals. A1c 7.4 preoperatively. 4. Afib: Tachycardia noted on assessment, EKG revealed ST prolonged VT, no change from pre-operative EKG. CXR revealed small L pleural effusion, will continue Lasix as stated above and stop IVFs. Will place telemetry to monitor. VTE prophylaxis: Per Ortho when deemed appropriate, ASA BID ordered per Ortho.
[2016-07-13] MEDS: Acetaminophen/HYDROcodone 325-5 MG Tab PO PRN ×2 (13:29→23:31)
--- NOTE | 2016-07-13 15:35 | PCM.CONSN ---
- General Info Date of Service: 07/13/16 Admission Dx/Problem (Free Text): Admission Diagnosis/Problem Admission Diagnosis/Problem Replacement of total knee joint Subjective Update: Patient doing well. Chills and cough improving. Urine color returning to normal. Complains of back pain - Review of Systems General: Reports: No Symptoms HEENT: Reports: no symptoms Pulmonary: Reports: no symptoms Cardiovascular: Reports: No Symptoms Gastrointestinal: Reports: No symptoms Genitourinary: Reports: no symptoms Musculoskeletal: Reports: back pain Skin: Reports: no symptoms Neurological: Reports: No Symptoms Psychiatric: Reports: no symptoms - Patient Data Vitals - most recent: Last Vital Signs Temp 35.9 C 07/13/16 12:00 Pulse 80 07/13/16 12:00 Resp 22 H 07/13/16 12:00 BP 117/59 L 07/13/16 12:00 Pulse Ox 97 07/13/16 12:00 Weight - most recent: 139.253 kg I&O - last 24 hours: Intake & Output 07/13/16 07/13/16 07/13/16 06:59 14:59 22:59 Intake Total 2717 50 Output Total 1700 Balance 1017 50 Lab Results last 24 hrs: Laboratory Results - last 24 hr 07/12/16 07/12/16 07/12/16 Range/Units 16:30 17:12 17:12 WBC 11.89 H (4.0-11.0) K/uL RBC 4.01 L (4.50-5.90) M/uL Hgb 11.7 L (13.0-17.0) g/dL Hct 37.9 L (38.0-50.0) % MCV 94.5 (80.0-98.0) fL MCH 29.2 (27.0-32.0) pg MCHC 30.9 L (31.0-37.0) g/dL RDW Std Deviation 56.3 (28.0-62.0) fl RDW Coeff of [place] 16 H (11.0-15.0) % Plt Count 180 (150-400) K/uL MPV 9.60 (7.40-12.00) fL Neut % (Auto) 75.4 (48.0-80.0) % Lymph % (Auto) 12.4 L (16.0-40.0) % [place] % (Auto) 10.0 (0.0-15.0) % Eos % (Auto) 2.1 (0.0-7.0) % Baso % (Auto) 0.1 (0.0-1.5) % Neut # (Auto) 9.0 H (1.4-5.7) K/uL Lymph # (Auto) 1.5 (0.6-2.4) K/uL [place] # (Auto) 1.2 H (0.0-0.8) K/uL Eos # (Auto) 0.3 (0.0-0.7) K/uL Baso # (Auto) 0.0 (0.0-0.1) K/uL Nucleated RBC % 0.0 /100WBC Nucleated RBCs # 0 K/uL Sodium 135 L (136-146) mmol/L Potassium 5.2 H (3.5-5.1) mmol/L Chloride 102 (98-110) mmol/L Carbon Dioxide 25 (21-31) mmol/L BUN 61 H (6.0-23.0) mg/dL Creatinine 2.4 H (0.6-1.5) mg/dL Est Cr Clr Drug Dosing 27.10 mL/min Estimated GFR (MDRD) 26.5 ml/min Glucose 133 H (60-110) mg/dL POC Glucose 136 H (60-110) mg/dL Calcium 8.8 (8.8-10.8) mg/dL Magnesium (1.5-2.3) mEq/L Urine Color Urine Appearance Urine pH (5.0-8.0) Ur Specific [place] (1.001-1.035) Urine Protein (NEGATIVE) mg/dL Urine Glucose (UA) (NEGATIVE) mg/dL Urine Ketones (NEGATIVE) mg/dL Urine Occult Blood (NEGATIVE) Urine Nitrite (NEGATIVE) Urine Bilirubin (NEGATIVE) Urine Urobilinogen (<2.0) EU/dL Ur Leukocyte Esterase (NEGATIVE) Urine RBC (0-2/HPF) Urine WBC (0-5/HPF) Ur Epithelial Cells (NONE-FEW) Urine Bacteria (NEGATIVE) Urine Mucus (NONE-MOD) Ur Random Creatinine mg/dL Ur Random Sodium mmol/L 07/12/16 07/12/16 07/12/16 Range/Units 17:49 17:49 20:39 WBC (4.0-11.0) K/uL RBC (4.50-5.90) M/uL Hgb (13.0-17.0) g/dL Hct (38.0-50.0) % MCV (80.0-98.0) fL MCH (27.0-32.0) pg MCHC (31.0-37.0) g/dL RDW Std Deviation (28.0-62.0) fl RDW Coeff of [place] (11.0-15.0) % Plt Count (150-400) K/uL MPV (7.40-12.00) fL Neut % (Auto) (48.0-80.0) % Lymph % (Auto) (16.0-40.0) % [place] % (Auto) (0.0-15.0) % Eos % (Auto) (0.0-7.0) % Baso % (Auto) (0.0-1.5) % Neut # (Auto) (1.4-5.7) K/uL Lymph # (Auto) (0.6-2.4) K/uL [place] # (Auto) (0.0-0.8) K/uL Eos # (Auto) (0.0-0.7) K/uL Baso # (Auto) (0.0-0.1) K/uL Nucleated RBC % /100WBC Nucleated RBCs # K/uL Sodium (136-146) mmol/L Potassium (3.5-5.1) mmol/L Chloride (98-110) mmol/L Carbon Dioxide (21-31) mmol/L BUN (6.0-23.0) mg/dL Creatinine (0.6-1.5) mg/dL Est Cr Clr Drug Dosing mL/min Estimated GFR (MDRD) ml/min Glucose (60-110) mg/dL POC Glucose 150 H (60-110) mg/dL Calcium (8.8-10.8) mg/dL Magnesium (1.5-2.3) mEq/L Urine Color BROWN Urine Appearance CLOUDY Urine pH 5.0 (5.0-8.0) Ur Specific [place] 1.020 (1.001-1.035) Urine Protein 30 (NEGATIVE) mg/dL Urine Glucose (UA) NEGATIVE (NEGATIVE) mg/dL Urine Ketones NEGATIVE (NEGATIVE) mg/dL Urine Occult Blood LARGE H (NEGATIVE) Urine Nitrite NEGATIVE (NEGATIVE) Urine Bilirubin NEGATIVE (NEGATIVE) Urine Urobilinogen 0.2 (<2.0) EU/dL Ur Leukocyte Esterase TRACE (NEGATIVE) Urine RBC TOO NUMBEROUS TO CT (0-2/HPF) Urine WBC 0-1 (0-5/HPF) Ur Epithelial Cells OCCASIONAL (NONE-FEW) Urine Bacteria FEW (NEGATIVE) Urine Mucus LIGHT (NONE-MOD) Ur Random Creatinine 88.6 mg/dL Ur Random Sodium < 20.0 mmol/L 07/13/16 07/13/16 07/13/16 Range/Units 04:33 04:33 04:33 WBC 11.14 H (4.0-11.0) K/uL RBC 3.55 L (4.50-5.90) M/uL Hgb 10.5 L (13.0-17.0) g/dL Hct 33.2 L (38.0-50.0) % MCV 93.5 (80.0-98.0) fL MCH 29.6 (27.0-32.0) pg MCHC 31.6 (31.0-37.0) g/dL RDW Std Deviation 54.8 (28.0-62.0) fl RDW Coeff of [place] 16 H (11.0-15.0) % Plt Count 177 (150-400) K/uL MPV 10.00 (7.40-12.00) fL Neut % (Auto) 73.1 (48.0-80.0) % Lymph % (Auto) 12.0 L (16.0-40.0) % [place] % (Auto) 11.9 (0.0-15.0) % Eos % (Auto) 2.8 (0.0-7.0) % Baso % (Auto) 0.2 (0.0-1.5) % Neut # (Auto) 8.1 H (1.4-5.7) K/uL Lymph # (Auto) 1.3 (0.6-2.4) K/uL [place] # (Auto) 1.3 H (0.0-0.8) K/uL Eos # (Auto) 0.3 (0.0-0.7) K/uL Baso # (Auto) 0.0 (0.0-0.1) K/uL Nucleated RBC % 0.0 /100WBC Nucleated RBCs # 0 K/uL Sodium 137 (136-146) mmol/L Potassium 4.6 (3.5-5.1) mmol/L Chloride 106 (98-110) mmol/L Carbon Dioxide 20 L (21-31) mmol/L BUN 61 H (6.0-23.0) mg/dL Creatinine 1.8 H (0.6-1.5) mg/dL Est Cr Clr Drug Dosing 36.14 mL/min Estimated GFR (MDRD) 36.9 ml/min Glucose 119 H (60-110) mg/dL POC Glucose (60-110) mg/dL Calcium 7.9 L (8.8-10.8) mg/dL Magnesium 2.1 (1.5-2.3) mEq/L Urine Color Urine Appearance Urine pH (5.0-8.0) Ur Specific [place] (1.001-1.035) Urine Protein (NEGATIVE) mg/dL Urine Glucose (UA) (NEGATIVE) mg/dL Urine Ketones (NEGATIVE) mg/dL Urine Occult Blood (NEGATIVE) Urine Nitrite (NEGATIVE) Urine Bilirubin (NEGATIVE) Urine Urobilinogen (<2.0) EU/dL Ur Leukocyte Esterase (NEGATIVE) Urine RBC (0-2/HPF) Urine WBC (0-5/HPF) Ur Epithelial Cells (NONE-FEW) Urine Bacteria (NEGATIVE) Urine Mucus (NONE-MOD) Ur Random Creatinine mg/dL Ur Random Sodium mmol/L 07/13/16 07/13/16 07/13/16 Range/Units 05:26 05:57 11:29 WBC (4.0-11.0) K/uL RBC (4.50-5.90) M/uL Hgb (13.0-17.0) g/dL Hct (38.0-50.0) % MCV (80.0-98.0) fL MCH (27.0-32.0) pg MCHC (31.0-37.0) g/dL RDW Std Deviation (28.0-62.0) fl RDW Coeff of [place] (11.0-15.0) % Plt Count (150-400) K/uL MPV (7.40-12.00) fL Neut % (Auto) (48.0-80.0) % Lymph % (Auto) (16.0-40.0) % [place] % (Auto) (0.0-15.0) % Eos % (Auto) (0.0-7.0) % Baso % (Auto) (0.0-1.5) % Neut # (Auto) (1.4-5.7) K/uL Lymph # (Auto) (0.6-2.4) K/uL [place] # (Auto) (0.0-0.8) K/uL Eos # (Auto) (0.0-0.7) K/uL Baso # (Auto) (0.0-0.1) K/uL Nucleated RBC % /100WBC Nucleated RBCs # K/uL Sodium (136-146) mmol/L Potassium (3.5-5.1) mmol/L Chloride (98-110) mmol/L Carbon Dioxide (21-31) mmol/L BUN (6.0-23.0) mg/dL Creatinine (0.6-1.5) mg/dL Est Cr Clr Drug Dosing mL/min Estimated GFR (MDRD) ml/min Glucose (60-110) mg/dL POC Glucose 112 H 138 H (60-110) mg/dL Calcium (8.8-10.8) mg/dL Magnesium (1.5-2.3) mEq/L Urine Color YELLOW Urine Appearance CLEAR Urine pH 5.0 (5.0-8.0) Ur Specific [place] 1.020 (1.001-1.035) Urine Protein TRACE (NEGATIVE) mg/dL Urine Glucose (UA) NEGATIVE (NEGATIVE) mg/dL Urine Ketones NEGATIVE (NEGATIVE) mg/dL Urine Occult Blood LARGE H (NEGATIVE) Urine Nitrite NEGATIVE (NEGATIVE) Urine Bilirubin NEGATIVE (NEGATIVE) Urine Urobilinogen 0.2 (<2.0) EU/dL Ur Leukocyte Esterase NEGATIVE (NEGATIVE) Urine RBC 6-10 (0-2/HPF) Urine WBC 0-2 (0-5/HPF) Ur Epithelial Cells RARE (NONE-FEW) Urine Bacteria RARE (NEGATIVE) Urine Mucus (NONE-MOD) Ur Random Creatinine mg/dL Ur Random Sodium mmol/L [place] Results last 24 hrs: Microbiology 07/12/16 07:55 Urine Culture - Preliminary Urine, [place] Cath ([place]) NO GROWTH AFTER 1 DAY 07/12/16 18:22 Anaerobic Blood Culture - Final Blood - Venous - Lab Draw Med Orders - Current: Current Medications Hydrocodone Bitart/Acetaminophen ([place] 325-5 Mg) 1 tab PO Q4H PRN PRN Reason: Pain Last Admin: 07/13/16 13:29 Dose: 1 tab Al Hydroxide/Mg Hydroxide (Mag-Al Plus) 30 ml PO Q4H PRN PRN Reason: indigestion Aspirin (Aspirin) 325 mg PO BID [facility] Last Admin: 07/13/16 08:34 Dose: 325 mg Bisacodyl (Dulcolax) 10 mg RECTAL DAILY PRN PRN Reason: Constipation Diphenhydramine HCl (Benadryl) 25 - 50 mg PO Q6H PRN PRN Reason: Itching Docusate Sodium (Colace) 100 mg PO BID [facility] Last Admin: 07/13/16 08:33 Dose: 100 mg Sodium Chloride (Normal Saline) 1,000 mls @ 125 mls/hr IV ASDIRECTED [facility] Last Admin: 07/13/16 09:51 Dose: 125 mls/hr Piperacillin Sod/Tazobactam (Sod 2.25 gm/ Sodium Chloride) 50 mls @ 100 mls/hr IV Q6H [facility] Last Admin: 07/13/16 09:51 Dose: 100 mls/hr Levofloxacin/Dextrose 750 mg/ (Premix) 150 mls @ 100 mls/hr IV Q48H [facility] Last Admin: 07/13/16 00:18 Dose: 100 mls/hr Vancomycin HCl 2 gm/ Sodium (Chloride) 500 mls @ 333.333 mls/hr IV Q24H [facility] Last Admin: 07/12/16 22:36 Dose: 333.333 mls/hr Insulin Aspart (Novolog) 0 unit SUBCUT TIDAC [facility] PRN Reason: Protocol Last Admin: 07/13/16 11:42 Dose: Not Given Insulin Detemir (Levemir) 40 unit SUBCUT BEDTIME [facility] Last Admin: 07/12/16 20:52 Dose: 40 units Metoprolol Succinate (Toprol Xl) 50 mg PO DAILY [facility] Last Admin: 07/13/16 08:34 Dose: 50 mg Ondansetron HCl (Zofran) 4 mg IV Q6HR PRN PRN Reason: NAUSEA/VOMITING Last Admin: 07/11/16 08:28 Dose: 4 mg Oxybutynin Chloride (Oxybutynin) 5 mg PO BEDTIME [facility] Last Admin: 07/12/16 20:58 Dose: 5 mg Scopolamine (Transderm-Scop) 1.5 mg TRDERM ONARRIVE [facility] Last Admin: 07/09/16 07:27 Dose: 1.5 mg Vancomycin HCl (Pharmacy To Dose - Vancomycin) 1 dose .XX ASDIRECTED [facility] Discontinued Medications Acetaminophen (Tylenol Extra Strength) 1,000 mg PO Q6H [facility] Last Admin: 07/13/16 13:28 Dose: 1,000 mg Celecoxib (Celebrex) 200 mg PO DAILY [facility] Ephedrine Sulfate (Ephedrine Sulfate) Confirm Administered Dose 100 mg .ROUTE .STK-MED ONE Stop: 07/09/16 07:16 Famotidine (Pepcid) 40 mg IVPUSH ONARRIVE [facility] Stop: 07/09/16 12:01 Last Admin: 07/09/16 07:28 Dose: 40 mg Fentanyl (Sublimaze) Confirm Administered Dose 100 mcg .ROUTE .STK-MED ONE Stop: 07/09/16 07:15 Fentanyl (Sublimaze) Confirm Administered Dose 100 mcg .ROUTE .STK-MED ONE Stop: 07/09/16 07:16 Fentanyl (Sublimaze) 50 mcg IVPUSH Q5M PRN PRN Reason: Pain (severe 7-10) Stop: 07/10/16 09:42 Last Admin: 07/09/16 11:18 Dose: 50 mcg Furosemide (Lasix) 80 mg PO BID [facility] Last Admin: 07/09/16 20:38 Dose: 80 mg Furosemide (Lasix) 80 mg PO BIDDIURETIC [facility] Last Admin: 07/12/16 08:06 Dose: 80 mg Furosemide (Lasix) 80 mg IVPUSH NOW ONE Stop: 07/12/16 21:25 Last Admin: 07/12/16 21:46 Dose: 80 mg Hydromorphone HCl (Dilaudid) 0.5 - 1 mg IVPUSH Q3H PRN PRN Reason: Pain Last Admin: 07/10/16 11:28 Dose: 1 mg Hydromorphone HCl (Dilaudid) 0.5 - 1 mg IVPUSH Q3H PRN PRN Reason: Pain Last Admin: 07/11/16 17:53 Dose: 1 mg Acetaminophen 1,000 mg/ Premix 100 mls @ 400 mls/hr IV ONARRIVE [facility] Stop: 07/09/16 12:01 Ropivacaine 49.25 ml/Ketorolac Tromethamine 30 mg/Epinephrine HCl 0.5 mg/ Clonidine HCl 80 mcg/ Sodium Chloride 100 mls @ 50 mls/min INJECT ASDIRECTED [facility] Stop: 07/09/16 12:01 Lactated Ringer's (Ringers, Lactated) 1,000 mls @ 100 mls/hr IV ASDIRECTED [facility] Last Admin: 07/09/16 07:25 Dose: 100 mls/hr Tranexamic Acid 4,000 mg/ (Sodium Chloride) 140 mls @ 600 [facility] Stop: 07/09/16 12:01 Cefazolin Sodium/Dextrose 2 gm (/ Premix) 50 mls @ 100 mls/hr IV ONCALL [facility] Stop: 07/09/16 12:01 Dextrose/Water (Dextrose 5% In Water) 500 [facility]ls [facility] Last Admin: 07/09/16 07:26 Dose: 75 mls/hr Acetaminophen (Ofirmev) 1,000 mls @ 4,000 mls/hr IV ONARRIVE [facility] Stop: 07/09/16 12:01 Last Admin: 07/09/16 07:27 Dose: 4,000 mls/hr Cefazolin Sodium/Dextrose 2 gm (/ Premix) 50 mls @ 100 mls/hr IV Q8HR [facility] Stop: 07/09/16 22:29 Last Infusion: 07/09/16 17:28 Dose: Infused Cefazolin Sodium/Dextrose 2 gm (/ Premix) 50 mls @ 100 mls/hr IV Q8HR [facility] Stop: 07/10/16 03:29 Last Admin: 07/10/16 05:49 Dose: Not Given Ceftriaxone Sodium/Dextrose 1 (gm/ Premix) 50 mls @ 100 mls/hr IV ONETIME ONE Stop: 07/12/16 09:29 Last Admin: 07/12/16 09:31 Dose: 100 mls/hr Sodium Chloride (Normal Saline) 1,000 mls @ 125 mls/hr IV ASDIRECTED [facility] Last Admin: 07/12/16 09:31 Dose: 75 mls/hr Ceftriaxone Sodium/Dextrose 1 (gm/ Premix) 50 mls @ 100 mls/hr IV Q24H [facility] Levofloxacin/Dextrose 750 mg/ (Premix) 150 mls @ 100 mls/hr IV Q48H [facility] Last Admin: 07/12/16 22:54 Dose: Not Given Vancomycin HCl 2 gm/ Sodium (Chloride) 500 mls @ 333.333 mls/hr IV Q24H [facility] Last Admin: 07/12/16 22:54 Dose: Not Given Ketorolac Tromethamine (Toradol) 15 mg IVPUSH ONARRIVE [facility] Last Admin: 07/09/16 07:28 Dose: 15 mg Ketorolac Tromethamine (Toradol) 15 mg IVPUSH Q6H [facility] Stop: 07/10/16 03:01 Ketorolac Tromethamine (Toradol) 15 mg IVPUSH Q6H [facility] Stop: 07/17/16 00:01 Last Admin: 07/12/16 05:13 Dose: 15 mg Lidocaine (Xylocaine-Mpf 2%) Confirm Administered Dose 10 ml .ROUTE .STK-MED ONE Stop: 07/09/16 07:15 Lidocaine (Xylocaine-Mpf 2%) Confirm Administered Dose 5 ml .ROUTE .STK-MED ONE Stop: 07/09/16 07:19 Lidocaine HCl (Xylocaine 1%) Confirm Administered Dose 50 ml .ROUTE .STK-MED ONE Stop: 07/09/16 06:49 Losartan Potassium (Cozaar) 100 mg PO DAILY [facility] Metoprolol Succinate (Toprol Xl) 50 mg PO ONETIME ONE Stop: 07/12/16 00:19 Last Admin: 07/12/16 00:39 Dose: 50 mg Midazolam HCl (Versed 1 Mg/Ml) Confirm Administered Dose 2 mg .ROUTE .STK-MED ONE Stop: 07/09/16 07:15 Morphine Sulfate (Morphine) 4 mg IVPUSH Q4H PRN PRN Reason: moderate pain Ondansetron HCl (Zofran) Confirm Administered Dose 4 mg .ROUTE .STK-MED ONE Stop: 07/09/16 07:16 Oxycodone HCl (Oxycontin) 10 mg PO ONARRIVE [facility] Stop: 07/09/16 12:01 Last Admin: 07/09/16 07:27 Dose: 10 mg Oxycodone HCl (Oxycodone) 5 - 10 mg PO Q4H PRN PRN Reason: Pain Last Admin: 07/11/16 16:26 Dose: 10 mg Oxycodone HCl (Oxycontin) 10 mg PO Q12HR [facility] Last Admin: 07/11/16 22:21 Dose: Not Given Phenylephrine HCl (Alexis-Synephrine) Confirm Administered Dose 10 mg .ROUTE .STK- MED ONE Stop: 07/09/16 08:53 Potassium Chloride (Klor-Con M20) 20 meq PO DAILY [facility] Propofol (Diprivan 20 Ml) Confirm Administered Dose 400 mg .ROUTE .STK-MED ONE Stop: 07/09/16 07:15 Propofol (Diprivan 20 Ml) Confirm Administered Dose 200 mg .ROUTE .STK-MED ONE Stop: 07/09/16 07:19 Succinylcholine Chloride (Succinylcholine In Ns Pf) Confirm Administered Dose 200 mg .ROUTE .STK-MED ONE Stop: 07/09/16 07:17 Tranexamic Acid (Cyklokapron) Confirm Administered Dose 4,000 mg .ROUTE .STK- MED ONE Stop: 07/09/16 07:12 - Exam Quality Assessment: supplemental oxygen General: alert, oriented, cooperative, no acute distress HEENT: Pupils equal Neck: supple, no JVD Lungs: Decreased breath sounds, Rales, Wheezing Cardiovascular: Regular Rate, Regular Rhythm Abdomen: bowel sounds present Back Exam: Normal Inspection. No: CVA Tenderness (L), CVA Tenderness (R), Vertebral Tenderness Wound/Incisions: dressing dry and intact Neurological: no new focal deficit Consult PN Assessment/Plan Procedures: Procedures ASSAY OF IRON (02/21/15) CHEST X-RAY 2VW FRONTAL&LATL (04/30/16) COMPLETE CBC AUTOMATED (12/07/14) COMPLETE CBC W/AUTO DIFF WBC (06/25/16) COMPREHEN METABOLIC PANEL (06/25/16) ELECTROCARDIOGRAM TRACING (04/30/16) GLYCOSYLATED HEMOGLOBIN TEST (06/08/16) LIPID PANEL (04/30/16) MEDICAL NUTRITION INDIV IN (01/20/15) MRI JNT OF LWR EXTRE W/O DYE (04/24/16) OFFICE/OUTPATIENT VISIT EST (01/17/15) OFFICE/OUTPATIENT VISIT NEW (12/09/14) PROTHROMBIN TIME (06/25/16) ROUTINE VENIPUNCTURE (06/25/16) THROMBOPLASTIN TIME PARTIAL (06/25/16) TTE W/DOPPLER COMPLETE (12/31/14) URINALYSIS AUTO W/SCOPE (06/25/16) X-RAY EXAM KNEE 4 OR MORE (03/29/16) Problem List Initiated/Reviewed/Updated: Yes My Orders last 24 hours: My Active Orders 07/12/16 17:13 Communication Order [RC] DAILY 07/12/16 17:43 Blood Culture x2 Reflex Set [OM.PC] Stat 07/12/16 18:11 CULTURE BLOOD [BC] Stat 07/12/16 18:15 Sodium Chloride 0.9% [Normal Saline] 1,000 ml IV ASDIRECTED 07/12/16 18:22 CULTURE BLOOD [BC] Stat 07/13/16 11:29 Acetaminophen/HYDROcodone [[place] 325-5 MG] 1 tab PO Q4H PRN Plan: 07/13/16: 75 yo male with history of DM. HTN & AF admitted for Right Total Knee. On Patient developed LOUISE with UA suggestive of UTI for which he was started on IV NS for hydration for his LOUISE and Cetriaxone for his UTI. Later that day his pulmonary exam was suspicious for Pulmonary effusion/infiltrate. His Lasix was restarted as it was likely due to volume overload but he was also started on antibiotics prophylactically until HCAP had been ruled out. CXR was done but has not been read as of yet. Patients kidney function, urine color and urine output is significantly improved today so his LOUISE is improving. His UC also returned back negative for growth. We will therefore DC his antibiotics and continue to monitor him. He also complains of back pain for which we will start [place] 5-325 [id number] PRN. His records state allergies to morphine and codeine derivatives but patient states he has taken it safely in the past. We will double check allergies with pharmacist prior to starting [place]. 07/12/16: 75 yo male with history of DM. HTN & AF admitted for Right Total Knee. Overnight patient developed fever of 38.5 and mild chills. This morning urine appeared dark. Labs suggestive of LOUISE. UA was positive for blood and nitrites. 1. Start NaCl @ 75 ml/hr 2. DC Toradol & Lasix 3. strict I&O's, weight checks and close monitoring for signs of CHF - obtain CXR if any suspicion. CXR from 07/09/16 showed no acute changes 4. start morphine IV for pain 5. Send UA for culture 6. repeat bmp in evening 7. continue all other management as per orders 07/11/16: This 75 year old male admitted with R TKA, hospitalist service consulted for medical management of DM, HTN, and Afib 1. S/P R TKA: Per Ortho. 2. HTN: No peaked Ts on EKG. Baseline Cr 1.5. Holding Losartan and Lasix 80 mg BID today due to renal function. Upon further review of past chart, LV EF 40-45 % with mildly decreased Left ventricular systolic function on ECHO from 2014. Will restart Lasix today. 3. DM type 2: Hold oral agents, may restart upon discharge home. Will Continue Levemir. Novolog SSI with meals. A1c 7.4 preoperatively. 4. Hx Afib: Telemetry shows SR. 5. LOUISE: Slowly improving. Will hold Losartan. Restart Lasix today. 6. Hyperkalemia: EKG shows no signs of peaked T monitor later today. Stable, adding Lasix today. VTE prophylaxis: Per Ortho when deemed appropriate, ASA BID ordered per Ortho.
--- NOTE | 2016-07-13 19:46 | CR ---
EXAM DATE: 07/09/16 PATIENT'S AGE: 75 Patient: LEANNE DAY Facility: [place], [place] Site . Site : [id number] Study: XRay Chest [id number] 8:57:08 PM Ordering Physician: Chucho Merino Final Report: INDICATION: Hypoxia. TECHNIQUE: Chest radiograph 1 view COMPARISON: 07/09/2016 FINDINGS: Lung volumes are diminished with right basilar linear atelectasis. Cardiac silhouette mildly enlarged, likely accentuated by AP technique and diminished lung volumes. No focal infiltrate or underlying congestive heart failure pattern. No pneumothorax. IMPRESSION: 1. Diminished lung volumes with new linear atelectasis at the right lung base. No focal pneumonia. Dictated by Hitesh Bell MD @ 07/12/2016 9:05:14 PM Dictated by: Hitesh Bell MD @ 07/12/2016 21:05:22 (Electronic Signature) Report Signed by Proxy. ELSA
[2016-07-13] MEDS: Insulin Detemir 100 Units/ML 3 ML Pen SUBCUT SCH (20:37)
[2016-07-13] MEDS: Oxybutynin 5 MG Tab PO SCH (20:37)
[2016-07-14] MEDS: Sodium Chloride 0.9% 1,000 ML IV SCH ×3 (02:20→12:54)
[2016-07-14] MEDS: Acetaminophen/HYDROcodone 325-5 MG Tab PO PRN ×4 (03:14→16:50)
[2016-07-14] MEDS: Insulin Aspart 100 Units/ML 3 ML Pen SUBCUT SCH ×3 (06:50→17:04)
[2016-07-14] MEDS: Aspirin 325 MG Tab PO SCH ×2 (08:54→20:28)
[2016-07-14] MEDS: Docusate Sodium 100 MG Cap PO SCH ×2 (08:55→20:29)
[2016-07-14] MEDS: Metoprolol Succinate 50 MG Tab.ER PO SCH (08:55)
--- NOTE | 2016-07-14 09:46 | PCM.SURGPN ---
- General Info Date of Service: 07/14/16 POD#: 5 Functional Status: Reports: pain controlled - Review of Systems General: Reports: No Symptoms HEENT: Reports: no symptoms Pulmonary: Reports: no symptoms Cardiovascular: Reports: No Symptoms Gastrointestinal: Reports: No symptoms Genitourinary: Reports: no symptoms Skin: Reports: no symptoms Neurological: Reports: No Symptoms Psychiatric: Reports: no symptoms Systems Review Comment:: Patient doing well. Just finished morning therapy. Still trouble ambulating any distance, but improving. Pain better controlled today. No other complaints. - Patient Data Vitals - most recent: Last Vital Signs Temp 98.0 F 07/14/16 07:17 Pulse 74 07/14/16 08:55 Resp 22 H 07/14/16 07:17 BP 142/78 H 07/14/16 08:55 Pulse Ox 92 L 07/14/16 07:17 Weight - most recent: 139.253 kg I&O - last 24 hours: Intake & Output 07/13/16 07/14/16 07/14/16 22:59 06:59 14:59 Intake Total 2540 1100 Output Total 1580 1600 Balance 960 -500 Lab Results last 24 hrs: Laboratory Results - last 24 hr 07/13/16 07/13/16 07/14/16 Range/Units 11:29 16:23 04:41 WBC (4.0-11.0) K/uL RBC (4.50-5.90) M/uL Hgb (13.0-17.0) g/dL Hct (38.0-50.0) % MCV (80.0-98.0) fL MCH (27.0-32.0) pg MCHC (31.0-37.0) g/dL RDW Std Deviation (28.0-62.0) fl RDW Coeff of [place] (11.0-15.0) % Plt Count (150-400) K/uL MPV (7.40-12.00) fL Neut % (Auto) (48.0-80.0) % Lymph % (Auto) (16.0-40.0) % [place] % (Auto) (0.0-15.0) % Eos % (Auto) (0.0-7.0) % Baso % (Auto) (0.0-1.5) % Neut # (Auto) (1.4-5.7) K/uL Lymph # (Auto) (0.6-2.4) K/uL [place] # (Auto) (0.0-0.8) K/uL Eos # (Auto) (0.0-0.7) K/uL Baso # (Auto) (0.0-0.1) K/uL Nucleated RBC % /100WBC Nucleated RBCs # K/uL Sodium (136-146) mmol/L Potassium (3.5-5.1) mmol/L Chloride (98-110) mmol/L Carbon Dioxide (21-31) mmol/L BUN (6.0-23.0) mg/dL Creatinine (0.6-1.5) mg/dL Est Cr Clr Drug Dosing mL/min Estimated GFR (MDRD) ml/min Glucose (60-110) mg/dL POC Glucose 138 H 140 H (60-110) mg/dL Calcium (8.8-10.8) mg/dL Magnesium 2.1 (1.5-2.3) mEq/L 07/14/16 07/14/16 07/14/16 Range/Units 04:41 04:41 06:03 WBC 9.96 (4.0-11.0) K/uL RBC 3.42 L (4.50-5.90) M/uL Hgb 10.1 L (13.0-17.0) g/dL Hct 32.0 L (38.0-50.0) % MCV 93.6 (80.0-98.0) fL MCH 29.5 (27.0-32.0) pg MCHC 31.6 (31.0-37.0) g/dL RDW Std Deviation 53.7 (28.0-62.0) fl RDW Coeff of [place] 16 H (11.0-15.0) % Plt Count 193 (150-400) K/uL MPV 9.70 (7.40-12.00) fL Neut % (Auto) 69.3 (48.0-80.0) % Lymph % (Auto) 14.8 L (16.0-40.0) % [place] % (Auto) 12.9 (0.0-15.0) % Eos % (Auto) 2.8 (0.0-7.0) % Baso % (Auto) 0.2 (0.0-1.5) % Neut # (Auto) 6.9 H (1.4-5.7) K/uL Lymph # (Auto) 1.5 (0.6-2.4) K/uL [place] # (Auto) 1.3 H (0.0-0.8) K/uL Eos # (Auto) 0.3 (0.0-0.7) K/uL Baso # (Auto) 0.0 (0.0-0.1) K/uL Nucleated RBC % 0.0 /100WBC Nucleated RBCs # 0 K/uL Sodium 140 (136-146) mmol/L Potassium 4.6 (3.5-5.1) mmol/L Chloride 109 (98-110) mmol/L Carbon Dioxide 22 (21-31) mmol/L BUN 54 H (6.0-23.0) mg/dL Creatinine 1.3 (0.6-1.5) mg/dL Est Cr Clr Drug Dosing 50.04 mL/min Estimated GFR (MDRD) 53.7 ml/min Glucose 112 H (60-110) mg/dL POC Glucose 99 (60-110) mg/dL Calcium 7.8 L (8.8-10.8) mg/dL Magnesium (1.5-2.3) mEq/L [place] Results last 24 hrs: Microbiology 07/12/16 07:55 Urine Culture - Final Urine, [place] Cath (Indwelling) No Growth 07/12/16 18:22 Aerobic Blood Culture - Preliminary Blood - Venous - Lab Draw NO GROWTH AFTER 1 DAY Anaerobic Blood Culture - Final 07/12/16 18:11 Aerobic Blood Culture - Preliminary Blood - Venous NO GROWTH AFTER 1 DAY Anaerobic Blood Culture - Preliminary NO GROWTH AFTER 1 DAY Med Orders - Current: Current Medications Hydrocodone Bitart/Acetaminophen ([place] 325-5 Mg) 1 tab PO Q4H PRN PRN Reason: Pain Last Admin: 07/14/16 07:32 Dose: 1 tab Al Hydroxide/Mg Hydroxide (Mag-Al Plus) 30 ml PO Q4H PRN PRN Reason: indigestion Aspirin (Aspirin) 325 mg PO BID [facility] Last Admin: 07/14/16 08:54 Dose: 325 mg Bisacodyl (Dulcolax) 10 mg RECTAL DAILY PRN PRN Reason: Constipation Diphenhydramine HCl (Benadryl) 25 - 50 mg PO Q6H PRN PRN Reason: Itching Docusate Sodium (Colace) 100 mg PO BID [facility] Last Admin: 07/14/16 08:55 Dose: 100 mg Sodium Chloride (Normal Saline) 1,000 mls @ 50 mls/hr IV ASDIRECTED [facility] Last Admin: 07/14/16 09:35 Dose: 50 mls/hr Insulin Aspart (Novolog) 0 unit SUBCUT TIDAC [facility] PRN Reason: Protocol Last Admin: 07/14/16 06:50 Dose: Not Given Insulin Detemir (Levemir) 40 unit SUBCUT BEDTIME [facility] Last Admin: 07/13/16 20:37 Dose: 40 units Metoprolol Succinate (Toprol Xl) 50 mg PO DAILY [facility] Last Admin: 07/14/16 08:55 Dose: 50 mg Ondansetron HCl (Zofran) 4 mg IV Q6HR PRN PRN Reason: NAUSEA/VOMITING Last Admin: 07/11/16 08:28 Dose: 4 mg Oxybutynin Chloride (Oxybutynin) 5 mg PO BEDTIME [facility] Last Admin: 07/13/16 20:37 Dose: 5 mg Scopolamine (Transderm-Scop) 1.5 mg TRDERM ONARRIVE [facility] Last Admin: 07/09/16 07:27 Dose: 1.5 mg Discontinued Medications Acetaminophen (Tylenol Extra Strength) 1,000 mg PO Q6H [facility] Last Admin: 07/13/16 13:28 Dose: 1,000 mg Celecoxib (Celebrex) 200 mg PO DAILY [facility] Ephedrine Sulfate (Ephedrine Sulfate) Confirm Administered Dose 100 mg .ROUTE .STK-MED ONE Stop: 07/09/16 07:16 Famotidine (Pepcid) 40 mg IVPUSH ONARRIVE [facility] Stop: 07/09/16 12:01 Last Admin: 07/09/16 07:28 Dose: 40 mg Fentanyl (Sublimaze) Confirm Administered Dose 100 mcg .ROUTE .STK-MED ONE Stop: 07/09/16 07:15 Fentanyl (Sublimaze) Confirm Administered Dose 100 mcg .ROUTE .STK-MED ONE Stop: 07/09/16 07:16 Fentanyl (Sublimaze) 50 mcg IVPUSH Q5M PRN PRN Reason: Pain (severe 7-10) Stop: 07/10/16 09:42 Last Admin: 07/09/16 11:18 Dose: 50 mcg Furosemide (Lasix) 80 mg PO BID [facility] Last Admin: 07/09/16 20:38 Dose: 80 mg Furosemide (Lasix) 80 mg PO BIDDIURETIC [facility] Last Admin: 07/12/16 08:06 Dose: 80 mg Furosemide (Lasix) 80 mg IVPUSH NOW ONE Stop: 07/12/16 21:25 Last Admin: 07/12/16 21:46 Dose: 80 mg Hydromorphone HCl (Dilaudid) 0.5 - 1 mg IVPUSH Q3H PRN PRN Reason: Pain Last Admin: 07/10/16 11:28 Dose: 1 mg Hydromorphone HCl (Dilaudid) 0.5 - 1 mg IVPUSH Q3H PRN PRN Reason: Pain Last Admin: 07/11/16 17:53 Dose: 1 mg Acetaminophen 1,000 mg/ Premix 100 mls @ 400 mls/hr IV ONARRIVE [facility] Stop: 07/09/16 12:01 Ropivacaine 49.25 ml/Ketorolac Tromethamine 30 mg/Epinephrine HCl 0.5 mg/ Clonidine HCl 80 mcg/ Sodium Chloride 100 mls @ 50 mls/min INJECT ASDIRECTED [facility] Stop: 07/09/16 12:01 Lactated Ringer's (Ringers, Lactated) 1,000 mls @ 100 mls/hr IV ASDIRECTED [facility] Last Admin: 07/09/16 07:25 Dose: 100 mls/hr Tranexamic Acid 4,000 mg/ (Sodium Chloride) 140 mls @ 600 mls/hr IV ASDIRECTED [facility] Stop: 07/09/16 12:01 Cefazolin Sodium/Dextrose 2 gm (/ Premix) 50 mls @ 100 mls/hr IV ONCALL [facility] Stop: 07/09/16 12:01 Dextrose/Water (Dextrose 5% In Water) 500 mls @ 75 mls/hr IV ASDIRECTED [facility] Last Admin: 07/09/16 07:26 Dose: 75 mls/hr Acetaminophen (Ofirmev) 1,000 mls @ 4,000 mls/hr IV ONARRIVE [facility] Stop: 07/09/16 12:01 Last Admin: 07/09/16 07:27 Dose: 4,000 mls/hr Cefazolin Sodium/Dextrose 2 gm (/ Premix) 50 mls @ 100 mls/hr IV Q8HR [facility] Stop: 07/09/16 22:29 Last Infusion: 07/09/16 17:28 Dose: Infused Cefazolin Sodium/Dextrose 2 gm (/ Premix) 50 mls @ 100 mls/hr IV Q8HR [facility] Stop: 07/10/16 03:29 Last Admin: 07/10/16 05:49 Dose: Not Given Ceftriaxone Sodium/Dextrose 1 (gm/ Premix) 50 mls @ 100 mls/hr IV ONETIME ONE Stop: 07/12/16 09:29 Last Admin: 07/12/16 09:31 Dose: 100 mls/hr Sodium Chloride (Normal Saline) 1,000 mls @ 125 mls/hr IV ASDIRECTED [facility] Last Admin: 07/12/16 09:31 Dose: 75 mls/hr Ceftriaxone Sodium/Dextrose 1 (gm/ Premix) 50 mls @ 100 mls/hr IV Q24H [facility] Sodium Chloride (Normal Saline) 1,000 mls @ 125 mls/hr IV ASDIRECTED [facility] Last Admin: 07/14/16 02:20 Dose: 125 mls/hr Levofloxacin/Dextrose 750 mg/ (Premix) 150 mls @ 100 mls/hr IV Q48H [facility] Last Admin: 07/12/16 22:54 Dose: Not Given Piperacillin Sod/Tazobactam (Sod 2.25 gm/ Sodium Chloride) 50 mls @ 100 mls/hr IV Q6H [facility] Last Admin: 07/13/16 15:36 Dose: 100 mls/hr Vancomycin HCl 2 gm/ Sodium (Chloride) 500 mls @ 333.333 mls/hr IV Q24H [facility] Last Admin: 07/12/16 22:54 Dose: Not Given Levofloxacin/Dextrose 750 mg/ (Premix) 150 mls @ 100 mls/hr IV Q48H [facility] Last Admin: 07/13/16 00:18 Dose: 100 mls/hr Vancomycin HCl 2 gm/ Sodium (Chloride) 500 mls @ 333.333 mls/hr IV Q24H [facility] Last Admin: 07/12/16 22:36 Dose: 333.333 mls/hr Sodium Chloride (Normal Saline) 1,000 mls @ 50 mls/hr IV ASDIRECTED [facility] Ketorolac Tromethamine (Toradol) 15 mg IVPUSH ONARRIVE [facility] Last Admin: 07/09/16 07:28 Dose: 15 mg Ketorolac Tromethamine (Toradol) 15 mg IVPUSH Q6H [facility] Stop: 07/10/16 03:01 Ketorolac Tromethamine (Toradol) 15 mg IVPUSH Q6H [facility] Stop: 07/17/16 00:01 Last Admin: 07/12/16 05:13 Dose: 15 mg Lidocaine (Xylocaine-Mpf 2%) Confirm Administered Dose 10 ml .ROUTE .STK-MED ONE Stop: 07/09/16 07:15 Lidocaine (Xylocaine-Mpf 2%) Confirm Administered Dose 5 ml .ROUTE .STK-MED ONE Stop: 07/09/16 07:19 Lidocaine HCl (Xylocaine 1%) Confirm Administered Dose 50 ml .ROUTE .STK-MED ONE Stop: 07/09/16 06:49 Losartan Potassium (Cozaar) 100 mg PO DAILY [facility] Metoprolol Succinate (Toprol Xl) 50 mg PO ONETIME ONE Stop: 07/12/16 00:19 Last Admin: 07/12/16 00:39 Dose: 50 mg Midazolam HCl (Versed 1 Mg/Ml) Confirm Administered Dose 2 mg .ROUTE .STK-MED ONE Stop: 07/09/16 07:15 Morphine Sulfate (Morphine) 4 mg IVPUSH Q4H PRN PRN Reason: moderate pain Ondansetron HCl (Zofran) Confirm Administered Dose 4 mg .ROUTE .STK-MED ONE Stop: 07/09/16 07:16 Oxycodone HCl (Oxycontin) 10 mg PO ONARRIVE [facility] Stop: 07/09/16 12:01 Last Admin: 07/09/16 07:27 Dose: 10 mg Oxycodone HCl (Oxycodone) 5 - 10 mg PO Q4H PRN PRN Reason: Pain Last Admin: 07/11/16 16:26 Dose: 10 mg Oxycodone HCl (Oxycontin) 10 mg PO Q12HR [facility] Last Admin: 07/11/16 22:21 Dose: Not Given Phenylephrine HCl (Alexis-Synephrine) Confirm Administered Dose 10 mg .ROUTE .STK- MED ONE Stop: 07/09/16 08:53 Potassium Chloride (Klor-Con M20) 20 meq PO DAILY [facility] Propofol (Diprivan 20 Ml) Confirm Administered Dose 400 mg .ROUTE .STK-MED ONE Stop: 07/09/16 07:15 Propofol (Diprivan 20 Ml) Confirm Administered Dose 200 mg .ROUTE .STK-MED ONE Stop: 07/09/16 07:19 Succinylcholine Chloride (Succinylcholine In Ns Pf) Confirm Administered Dose 200 mg .ROUTE .STK-MED ONE Stop: 07/09/16 07:17 Tranexamic Acid (Cyklokapron) Confirm Administered Dose 4,000 mg .ROUTE .STK- MED ONE Stop: 07/09/16 07:12 Vancomycin HCl (Pharmacy To Dose - Vancomycin) 1 dose .XX ASDIRECTED [facility] - Exam Wound/Incisions: dressing dry and intact Quality Assessment: supplemental oxygen, urine catheter General: alert, oriented Physical Findings Comment:: Exam of RLE shows Aquicell dressing intact. No calf TTP. AT/EHL/gastroc 07/06. Sensation intact. DP 2+. - Problem List & Annotations (1) S/P total knee arthroplasty SNOMED Code(s): 2180721540119, 825400590, 4823835571403 Code(s): Z96.659 - PRESENCE OF UNSPECIFIED ARTIFICIAL KNEE JOINT Status: Acute Current Visit: Yes Qualifiers: Laterality: right Qualified Code(s): Z96.651 - Presence of right artificial knee joint - Problem List Review Problem List Initiated/Reviewed/Updated: Yes - My Orders Last 24 Hours: Active Orders 24 hr Category Date Time Status MG [MAGNESIUM] [CHEM] AM Lab 07/15/16 05:11 Ordered VANCOMYCIN TROUGH [CHEM] Routine Lab 07/14/16 22:00 Ordered Acetaminophen/HYDROcodone [[place] 325-5 MG] Med 07/13/16 11:29 Active 1 tab PO Q4H PRN Sodium Chloride 0.9% [Normal Saline] 1,000 ml Med 07/14/16 08:58 Active IV ASDIRECTED Medication Orders Hydrocodone Bitart/Acetaminophen ([place] 325-5 Mg) 1 tab PO Q4H PRN PRN Reason: Pain Last Admin: 07/14/16 07:32 Dose: 1 tab Admin: 07/14/16 03:14 Dose: 1 tab Admin: 07/13/16 23:31 Dose: 1 tab Admin: 07/13/16 13:29 Dose: 1 tab Al Hydroxide/Mg Hydroxide (Mag-Al Plus) 30 ml PO Q4H PRN PRN Reason: indigestion Aspirin (Aspirin) 325 mg PO BID [facility] Last Admin: 07/14/16 08:54 Dose: 325 mg Admin: 07/13/16 20:36 Dose: 325 mg Admin: 07/13/16 08:34 Dose: 325 mg Admin: 07/12/16 21:01 Dose: 325 mg Admin: 07/12/16 08:06 Dose: 325 mg Admin: 07/11/16 20:49 Dose: 325 mg Admin: 07/11/16 08:27 Dose: 325 mg Admin: 07/10/16 20:09 Dose: 325 mg Admin: 07/10/16 08:39 Dose: 325 mg Bisacodyl (Dulcolax) 10 mg RECTAL DAILY PRN PRN Reason: Constipation Diphenhydramine HCl (Benadryl) 25 - 50 mg PO Q6H PRN PRN Reason: Itching Docusate Sodium (Colace) 100 mg PO BID [facility] Last Admin: 07/14/16 08:55 Dose: 100 mg Admin: 07/13/16 20:37 Dose: 100 mg Admin: 07/13/16 08:33 Dose: 100 mg Admin: 07/12/16 20:59 Dose: 100 mg Admin: 07/12/16 08:05 Dose: 100 mg Admin: 07/11/16 20:50 Dose: 100 mg Admin: 07/11/16 08:27 Dose: 100 mg Admin: 07/10/16 20:11 Dose: 100 mg Admin: 07/10/16 08:39 Dose: 100 mg Admin: 07/09/16 20:38 Dose: 100 mg Sodium Chloride (Normal Saline) 1,000 mls @ 50 mls/hr IV ASDIRECTED [facility] Last Admin: 07/14/16 09:35 Dose: 50 mls/hr Insulin Aspart (Novolog) 0 unit SUBCUT TIDAC [facility] PRN Reason: Protocol Last Admin: 07/14/16 06:50 Dose: Not Given Admin: 07/13/16 16:47 Dose: Not Given Admin: 07/13/16 11:42 Dose: Not Given Admin: 07/13/16 07:12 Dose: Admin: 07/12/16 17:01 Dose: Not Given Admin: 07/12/16 12:26 Dose: Not Given Admin: 07/12/16 08:18 Dose: Not Given Admin: 07/11/16 17:00 Dose: Not Given Admin: 07/11/16 11:34 Dose: 2 units Admin: 07/11/16 07:14 Dose: 2 units Admin: 07/10/16 16:47 Dose: Not Given Admin: 07/10/16 11:32 Dose: 2 units Admin: 07/10/16 06:30 Dose: Not Given Admin: 07/09/16 17:30 Dose: Not Given Insulin Detemir (Levemir) 40 unit SUBCUT BEDTIME [facility] Last Admin: 07/13/16 20:37 Dose: 40 units Admin: 07/12/16 20:52 Dose: 40 units Admin: 07/11/16 21:08 Dose: 40 units Admin: 07/10/16 20:11 Dose: 40 units Admin: 07/09/16 21:14 Dose: 40 units Metoprolol Succinate (Toprol Xl) 50 mg PO DAILY [facility] Last Admin: 07/14/16 08:55 Dose: 50 mg Admin: 07/13/16 08:34 Dose: 50 mg Admin: 07/12/16 08:06 Dose: 50 mg Ondansetron HCl (Zofran) 4 mg IV Q6HR PRN PRN Reason: NAUSEA/VOMITING Last Admin: 07/11/16 08:28 Dose: 4 mg Oxybutynin Chloride (Oxybutynin) 5 mg PO BEDTIME [facility] Last Admin: 07/13/16 20:37 Dose: 5 mg Admin: 07/12/16 20:58 Dose: 5 mg Admin: 07/11/16 20:50 Dose: 5 mg Admin: 07/10/16 20:11 Dose: 5 mg Admin: 07/09/16 20:38 Dose: 5 mg Scopolamine (Transderm-Scop) 1.5 mg TRDERM ONARRIVE [facility] Last Admin: 07/09/16 07:27 Dose: 1.5 mg - Plan Plan (Free Text/Narrative):: 1. continue to encourage ambulation 2. ASA/SCD for DVT prophylaxis 3. hospitalist following for multiple medical issues--kidney function improved, antibiotics discontinued 4. plan for ECF Saturday
--- NOTE | 2016-07-14 13:03 | PCM.CONSN ---
- General Info Date of Service: 07/14/16 Admission Dx/Problem (Free Text): Admission Diagnosis/Problem Admission Diagnosis/Problem Replacement of total knee joint Subjective Update: Patient doing well. No complains. Requesting we leave batres in until tomorrow because he does not want to have to get up multiple times to urinate. - Review of Systems General: Reports: No Symptoms HEENT: Reports: no symptoms Pulmonary: Reports: no symptoms Cardiovascular: Reports: No Symptoms Gastrointestinal: Reports: No symptoms Genitourinary: Reports: no symptoms Musculoskeletal: Reports: no symptoms Skin: Reports: no symptoms Neurological: Reports: No Symptoms Psychiatric: Reports: no symptoms - Patient Data Vitals - most recent: Last Vital Signs Temp 36.3 C 07/14/16 11:52 Pulse 67 07/14/16 11:52 Resp 20 07/14/16 11:52 BP 129/70 07/14/16 11:52 Pulse Ox 97 07/14/16 11:52 Weight - most recent: 139.253 kg I&O - last 24 hours: Intake & Output 07/13/16 07/14/16 07/14/16 22:59 06:59 14:59 Intake Total 2540 1100 1000 Output Total 1580 1600 Balance 960 -500 1000 Lab Results last 24 hrs: Laboratory Results - last 24 hr 07/13/16 07/14/16 07/14/16 Range/Units 16:23 04:41 04:41 WBC 9.96 (4.0-11.0) K/uL RBC 3.42 L (4.50-5.90) M/uL Hgb 10.1 L (13.0-17.0) g/dL Hct 32.0 L (38.0-50.0) % MCV 93.6 (80.0-98.0) fL MCH 29.5 (27.0-32.0) pg MCHC 31.6 (31.0-37.0) g/dL RDW Std Deviation 53.7 (28.0-62.0) fl RDW Coeff of [place] 16 H (11.0-15.0) % Plt Count 193 (150-400) K/uL MPV 9.70 (7.40-12.00) fL Neut % (Auto) 69.3 (48.0-80.0) % Lymph % (Auto) 14.8 L (16.0-40.0) % [place] % (Auto) 12.9 (0.0-15.0) % Eos % (Auto) 2.8 (0.0-7.0) % Baso % (Auto) 0.2 (0.0-1.5) % Neut # (Auto) 6.9 H (1.4-5.7) K/uL Lymph # (Auto) 1.5 (0.6-2.4) K/uL [place] # (Auto) 1.3 H (0.0-0.8) K/uL Eos # (Auto) 0.3 (0.0-0.7) K/uL Baso # (Auto) 0.0 (0.0-0.1) K/uL Nucleated RBC % 0.0 /100WBC Nucleated RBCs # 0 K/uL Sodium (136-146) mmol/L Potassium (3.5-5.1) mmol/L Chloride (98-110) mmol/L Carbon Dioxide (21-31) mmol/L BUN (6.0-23.0) mg/dL Creatinine (0.6-1.5) mg/dL Est Cr Clr Drug Dosing mL/min Estimated GFR (MDRD) ml/min Glucose (60-110) mg/dL POC Glucose 140 H (60-110) mg/dL Calcium (8.8-10.8) mg/dL Magnesium 2.1 (1.5-2.3) mEq/L 07/14/16 07/14/16 07/14/16 Range/Units 04:41 06:03 11:36 WBC (4.0-11.0) K/uL RBC (4.50-5.90) M/uL Hgb (13.0-17.0) g/dL Hct (38.0-50.0) % MCV (80.0-98.0) fL MCH (27.0-32.0) pg MCHC (31.0-37.0) g/dL RDW Std Deviation (28.0-62.0) fl RDW Coeff of [place] (11.0-15.0) % Plt Count (150-400) K/uL MPV (7.40-12.00) fL Neut % (Auto) (48.0-80.0) % Lymph % (Auto) (16.0-40.0) % [place] % (Auto) (0.0-15.0) % Eos % (Auto) (0.0-7.0) % Baso % (Auto) (0.0-1.5) % Neut # (Auto) (1.4-5.7) K/uL Lymph # (Auto) (0.6-2.4) K/uL [place] # (Auto) (0.0-0.8) K/uL Eos # (Auto) (0.0-0.7) K/uL Baso # (Auto) (0.0-0.1) K/uL Nucleated RBC % /100WBC Nucleated RBCs # K/uL Sodium 140 (136-146) mmol/L Potassium 4.6 (3.5-5.1) mmol/L Chloride 109 (98-110) mmol/L Carbon Dioxide 22 (21-31) mmol/L BUN 54 H (6.0-23.0) mg/dL Creatinine 1.3 (0.6-1.5) mg/dL Est Cr Clr Drug Dosing 50.04 mL/min Estimated GFR (MDRD) 53.7 ml/min Glucose 112 H (60-110) mg/dL POC Glucose 99 116 H (60-110) mg/dL Calcium 7.8 L (8.8-10.8) mg/dL Magnesium (1.5-2.3) mEq/L [place] Results last 24 hrs: Microbiology 07/12/16 07:55 Urine Culture - Final Urine, Batres Cath (Indwelling) No Growth 07/12/16 18:22 Aerobic Blood Culture - Preliminary Blood - Venous - Lab Draw NO GROWTH AFTER 1 DAY Anaerobic Blood Culture - Final 07/12/16 18:11 Aerobic Blood Culture - Preliminary Blood - Venous NO GROWTH AFTER 1 DAY Anaerobic Blood Culture - Preliminary NO GROWTH AFTER 1 DAY Med Orders - Current: Current Medications Hydrocodone Bitart/Acetaminophen ([place] 325-5 Mg) 1 tab PO Q4H PRN PRN Reason: Pain Last Admin: 07/14/16 11:50 Dose: 1 tab Al Hydroxide/Mg Hydroxide (Mag-Al Plus) 30 ml PO Q4H PRN PRN Reason: indigestion Aspirin (Aspirin) 325 mg PO BID BLANCA Last Admin: 07/14/16 08:54 Dose: 325 mg Bisacodyl (Dulcolax) 10 mg RECTAL DAILY PRN PRN Reason: Constipation Diphenhydramine HCl (Benadryl) 25 - 50 mg PO Q6H PRN PRN Reason: Itching Docusate Sodium (Colace) 100 mg PO BID [facility] Last Admin: 07/14/16 08:55 Dose: 100 mg Sodium Chloride (Normal Saline) 1,000 mls @ 50 mls/hr IV ASDIRECTED [facility] Last Admin: 07/14/16 12:54 Dose: 50 mls/hr Insulin Aspart (Novolog) 0 unit SUBCUT TIDAC [facility] PRN Reason: Protocol Last Admin: 07/14/16 11:47 Dose: Not Given Insulin Detemir (Levemir) 40 unit SUBCUT BEDTIME [facility] Last Admin: 07/13/16 20:37 Dose: 40 units Metoprolol Succinate (Toprol Xl) 50 mg PO DAILY [facility] Last Admin: 07/14/16 08:55 Dose: 50 mg Ondansetron HCl (Zofran) 4 mg IV Q6HR PRN PRN Reason: NAUSEA/VOMITING Last Admin: 07/11/16 08:28 Dose: 4 mg Oxybutynin Chloride (Oxybutynin) 5 mg PO BEDTIME [facility] Last Admin: 07/13/16 20:37 Dose: 5 mg Scopolamine (Transderm-Scop) 1.5 mg TRDERM ONARRIVE [facility] Last Admin: 07/09/16 07:27 Dose: 1.5 mg Discontinued Medications Acetaminophen (Tylenol Extra Strength) 1,000 mg PO Q6H [facility] Last Admin: 07/13/16 13:28 Dose: 1,000 mg Celecoxib (Celebrex) 200 mg PO DAILY [facility] Ephedrine Sulfate (Ephedrine Sulfate) Confirm Administered Dose 100 mg .ROUTE .STK-MED ONE Stop: 07/09/16 07:16 Famotidine (Pepcid) 40 mg IVPUSH ONARRIVE [facility] Stop: 07/09/16 12:01 Last Admin: 07/09/16 07:28 Dose: 40 mg Fentanyl (Sublimaze) Confirm Administered Dose 100 mcg .ROUTE .STK-MED ONE Stop: 07/09/16 07:15 Fentanyl (Sublimaze) Confirm Administered Dose 100 mcg .ROUTE .STK-MED ONE Stop: 07/09/16 07:16 Fentanyl (Sublimaze) 50 mcg IVPUSH Q5M PRN PRN Reason: Pain (severe 7-10) Stop: 07/10/16 09:42 Last Admin: 07/09/16 11:18 Dose: 50 mcg Furosemide (Lasix) 80 mg PO BID [facility] Last Admin: 07/09/16 20:38 Dose: 80 mg Furosemide (Lasix) 80 mg PO BIDDIURETIC [facility] Last Admin: 07/12/16 08:06 Dose: 80 mg Furosemide (Lasix) 80 mg IVPUSH NOW ONE Stop: 07/12/16 21:25 Last Admin: 07/12/16 21:46 Dose: 80 mg Hydromorphone HCl (Dilaudid) 0.5 - 1 mg IVPUSH Q3H PRN PRN Reason: Pain Last Admin: 07/10/16 11:28 Dose: 1 mg Hydromorphone HCl (Dilaudid) 0.5 - 1 mg IVPUSH Q3H PRN PRN Reason: Pain Last Admin: 07/11/16 17:53 Dose: 1 mg Acetaminophen 1,000 mg/ Premix 100 mls @ 400 mls/hr IV ONARRIVE [facility] Stop: 07/09/16 12:01 Ropivacaine 49.25 ml/Ketorolac Tromethamine 30 mg/Epinephrine HCl 0.5 mg/ Clonidine HCl 80 mcg/ Sodium Chloride 100 mls @ 50 mls/min INJECT ASDIRECTED [facility] Stop: 07/09/16 12:01 Lactated Ringer's (Ringers, Lactated) 1,000 mls @ 100 mls/hr IV ASDIRECTED [facility] Last Admin: 07/09/16 07:25 Dose: 100 mls/hr Tranexamic Acid 4,000 mg/ (Sodium Chloride) 140 mls @ 600 mls/hr IV ASDIRECTED [facility] Stop: 07/09/16 12:01 Cefazolin Sodium/Dextrose 2 gm (/ Premix) 50 mls @ 100 mls/hr IV ONCALL [facility] Stop: 07/09/16 12:01 Dextrose/Water (Dextrose 5% In Water) 500 mls @ 75 mls/hr IV ASDIRECTED [facility] Last Admin: 07/09/16 07:26 Dose: 75 mls/hr Acetaminophen (Ofirmev) 1,000 mls @ 4,000 mls/hr IV ONARRIVE [facility] Stop: 07/09/16 12:01 Last Admin: 07/09/16 07:27 Dose: 4,000 mls/hr Cefazolin Sodium/Dextrose 2 gm (/ Premix) 50 mls @ 100 mls/hr IV Q8HR [facility] Stop: 07/09/16 22:29 Last Infusion: 07/09/16 17:28 Dose: Infused Cefazolin Sodium/Dextrose 2 gm (/ Premix) 50 mls @ 100 mls/hr IV Q8HR [facility] Stop: 07/10/16 03:29 Last Admin: 07/10/16 05:49 Dose: Not Given Ceftriaxone Sodium/Dextrose 1 (gm/ Premix) 50 mls @ 100 mls/hr IV ONETIME ONE Stop: 07/12/16 09:29 Last Admin: 07/12/16 09:31 Dose: 100 mls/hr Sodium Chloride (Normal Saline) 1,000 mls @ 125 mls/hr IV ASDIRECTED [facility] Last Admin: 07/12/16 09:31 Dose: 75 mls/hr Ceftriaxone Sodium/Dextrose 1 (gm/ Premix) 50 mls @ 100 mls/hr IV Q24H [facility] Sodium Chloride (Normal Saline) 1,000 mls @ 125 mls/hr IV ASDIRECTED [facility] Last Admin: 07/14/16 02:20 Dose: 125 mls/hr Levofloxacin/Dextrose 750 mg/ (Premix) 150 mls @ 100 mls/hr IV Q48H [facility] Last Admin: 07/12/16 22:54 Dose: Not Given Piperacillin Sod/Tazobactam (Sod 2.25 gm/ Sodium Chloride) 50 mls @ 100 mls/hr IV Q6H [facility] Last Admin: 07/13/16 15:36 Dose: 100 mls/hr Vancomycin HCl 2 gm/ Sodium (Chloride) 500 mls @ 333.333 mls/hr IV Q24H [facility] Last Admin: 07/12/16 22:54 Dose: Not Given Levofloxacin/Dextrose 750 mg/ (Premix) 150 mls @ 100 mls/hr IV Q48H [facility] Last Admin: 07/13/16 00:18 Dose: 100 mls/hr Vancomycin HCl 2 gm/ Sodium (Chloride) 500 mls @ 333.333 mls/hr IV Q24H [facility] Last Admin: 07/12/16 22:36 Dose: 333.333 mls/hr Sodium Chloride (Normal Saline) 1,000 mls @ 50 mls/hr IV ASDIRECTED [facility] Ketorolac Tromethamine (Toradol) 15 mg IVPUSH ONARRIVE [facility] Last Admin: 07/09/16 07:28 Dose: 15 mg Ketorolac Tromethamine (Toradol) 15 mg IVPUSH Q6H [facility] Stop: 07/10/16 03:01 Ketorolac Tromethamine (Toradol) 15 mg IVPUSH Q6H [facility] Stop: 07/17/16 00:01 Last Admin: 07/12/16 05:13 Dose: 15 mg Lidocaine (Xylocaine-Mpf 2%) Confirm Administered Dose 10 ml .ROUTE .STK-MED ONE Stop: 07/09/16 07:15 Lidocaine (Xylocaine-Mpf 2%) Confirm Administered Dose 5 ml .ROUTE .STK-MED ONE Stop: 07/09/16 07:19 Lidocaine HCl (Xylocaine 1%) Confirm Administered Dose 50 ml .ROUTE .STK-MED ONE Stop: 07/09/16 06:49 Losartan Potassium (Cozaar) 100 mg PO DAILY [facility] Metoprolol Succinate (Toprol Xl) 50 mg PO ONETIME ONE Stop: 07/12/16 00:19 Last Admin: 07/12/16 00:39 Dose: 50 mg Midazolam HCl (Versed 1 Mg/Ml) Confirm Administered Dose 2 mg .ROUTE .STK-MED ONE Stop: 07/09/16 07:15 Morphine Sulfate (Morphine) 4 mg IVPUSH Q4H PRN PRN Reason: moderate pain Ondansetron HCl (Zofran) Confirm Administered Dose 4 mg .ROUTE .STK-MED ONE Stop: 07/09/16 07:16 Oxycodone HCl (Oxycontin) 10 mg PO ONARRIVE [facility] Stop: 07/09/16 12:01 Last Admin: 07/09/16 07:27 Dose: 10 mg Oxycodone HCl (Oxycodone) 5 - 10 mg PO Q4H PRN PRN Reason: Pain Last Admin: 07/11/16 16:26 Dose: 10 mg Oxycodone HCl (Oxycontin) 10 mg PO Q12HR [facility] Last Admin: 07/11/16 22:21 Dose: Not Given Phenylephrine HCl (Alexis-Synephrine) Confirm Administered Dose 10 mg .ROUTE .STK- MED ONE Stop: 07/09/16 08:53 Potassium Chloride (Klor-Con M20) 20 meq PO DAILY [facility] Propofol (Diprivan 20 Ml) Confirm Administered Dose 400 mg .ROUTE .STK-MED ONE Stop: 07/09/16 07:15 Propofol (Diprivan 20 Ml) Confirm Administered Dose 200 mg .ROUTE .STK-MED ONE Stop: 07/09/16 07:19 Succinylcholine Chloride (Succinylcholine In Ns Pf) Confirm Administered Dose 200 mg .ROUTE .STK-MED ONE Stop: 07/09/16 07:17 Tranexamic Acid (Cyklokapron) Confirm Administered Dose 4,000 mg .ROUTE .STK- MED ONE Stop: 07/09/16 07:12 Vancomycin HCl (Pharmacy To Dose - Vancomycin) 1 dose .XX ASDIRECTED [facility]AN[facility] - Exam Quality Assessment: supplemental oxygen General: alert, oriented, cooperative HEENT: Pupils equal, Pupils reactive Neck: supple, no JVD Lungs: Decreased breath sounds, Rales, Wheezing, Other (moderate aeration ) Cardiovascular: Regular Rate, Regular Rhythm Abdomen: no tenderness. No: distension, CVA tenderness (Male) Exam: Other (batres in place, urine appears normal, no blood ) Extremities: other (mild pedal edema ) Neurological: no new focal deficit Psy/Mental Status: alert, normal affect, normal mood Consult PN Assessment/Plan Procedures: Procedures ASSAY OF IRON (02/21/15) CHEST X-RAY 2VW FRONTAL&LATL (04/30/16) COMPLETE CBC AUTOMATED (12/07/14) COMPLETE CBC W/AUTO DIFF WBC (06/25/16) COMPREHEN METABOLIC PANEL (06/25/16) ELECTROCARDIOGRAM TRACING (04/30/16) GLYCOSYLATED HEMOGLOBIN TEST (06/08/16) LIPID PANEL (04/30/16) MEDICAL NUTRITION INDIV IN (01/20/15) MRI JNT OF LWR EXTRE W/O DYE (04/24/16) OFFICE/OUTPATIENT VISIT EST (01/17/15) OFFICE/OUTPATIENT VISIT NEW (12/09/14) PROTHROMBIN TIME (06/25/16) ROUTINE VENIPUNCTURE (06/25/16) THROMBOPLASTIN TIME PARTIAL (06/25/16) TTE W/DOPPLER COMPLETE (12/31/14) URINALYSIS AUTO W/SCOPE (06/25/16) X-RAY EXAM KNEE 4 OR MORE (03/29/16) Problem List Initiated/Reviewed/Updated: Yes My Orders last 24 hours: My Active Orders 07/14/16 08:58 Sodium Chloride 0.9% [Normal Saline] 1,000 ml IV ASDIRECTED Plan: 07/14/16: Patients Kidney function continues to improve. He is urinating adequately. BUN and Cr have normalized. GFR is slightly diminished at 53. His IV NS was decreased down to 50 ml/hour this morning and we will now saline lock him. Continue Lasix diurses as he still has pulmonary congestion from volume overload. Remove Batres this evening and continue to record I&O's and daily weight. Continue to wean off O2. Continue to encourage ambulation. Patient is stable but since he is new admit to [place] he will have to remain over weekend. We will continue to monitor him and anticipate discharge [facility] saturday. Continue all management as per orders. 07/13/16: 75 yo male with history of DM. HTN & AF admitted for Right Total Knee. On 07/12/16 Patient developed LOUISE with UA suggestive of UTI for which he was started on IV NS for hydration for his LOUISE and Cetriaxone for his UTI. Later that day his pulmonary exam was suspicious for Pulmonary effusion/infiltrate. His Lasix was restarted as it was likely due to volume overload but he was also started on antibiotics prophylactically until HCAP had been ruled out. CXR was done but has not been read as of yet. Patients kidney function, urine color and urine output is significantly improved today so his LOUISE is improving. His UC also returned back negative for growth. We will therefore DC his antibiotics and continue to monitor him. He also complains of back pain for which we will start [place] 5-325 [id number] PRN. His records state allergies to morphine and codeine derivatives but patient states he has taken it safely in the past. We will double check allergies with pharmacist prior to starting [place]. 07/12/16: 75 yo male with history of DM. HTN & AF admitted for Right Total Knee. Overnight patient developed fever of 38.5 and mild chills. This morning urine appeared dark. Labs suggestive of LOUISE. UA was positive for blood and nitrites. 1. Start NaCl @ 75 ml/hr 2. DC Toradol & Lasix 3. strict I&O's, weight checks and close monitoring for signs of CHF - obtain CXR if any suspicion. CXR from 07/09/16 showed no acute changes 4. start morphine IV for pain 5. Send UA for culture 6. repeat bmp in evening 7. continue all other management as per orders 07/11/16: This 75 year old male admitted with R TKA, hospitalist service consulted for medical management of DM, HTN, and Afib 1. S/P R TKA: Per Ortho. 2. HTN: No peaked Ts on EKG. Baseline Cr 1.5. Holding Losartan and Lasix 80 mg BID today due to renal function. Upon further review of past chart, LV EF 40-45 % with mildly decreased Left ventricular systolic function on ECHO from 2014. Will restart Lasix today. 3. DM type 2: Hold oral agents, may restart upon discharge home. Will Continue Levemir. Novolog SSI with meals. A1c 7.4 preoperatively. 4. Hx Afib: Telemetry shows SR. 5. LOUISE: Slowly improving. Will hold Losartan. Restart Lasix today. 6. Hyperkalemia: EKG shows no signs of peaked T monitor later today. Stable, adding Lasix today. VTE prophylaxis: Per Ortho when deemed appropriate, ASA BID ordered per Ortho.
[2016-07-14] MEDS ORDERED: Sodium Chloride 0.9% 10 ML Syringe FLUSH PRN (17:06)
[2016-07-14] MEDS ORDERED: Sodium Chloride 0.9% 2.5 ML Syringe FLUSH PRN (17:06)
[2016-07-14] MEDS ORDERED: Sodium Chloride 0.9% 1,000 ML IV SCH (18:15)
[2016-07-14] MEDS: Insulin Detemir 100 Units/ML 3 ML Pen SUBCUT SCH (20:27)
[2016-07-14] MEDS: Oxybutynin 5 MG Tab PO SCH (20:28)
[2016-07-15] MEDS: Acetaminophen/HYDROcodone 325-5 MG Tab PO PRN ×2 (00:24→07:18)
[2016-07-15] MEDS: Insulin Aspart 100 Units/ML 3 ML Pen SUBCUT SCH ×3 (06:31→17:08)
[2016-07-15] MEDS: Metoprolol Succinate 50 MG Tab.ER PO SCH (08:17)
[2016-07-15] MEDS: Docusate Sodium 100 MG Cap PO SCH ×2 (08:17→23:08)
[2016-07-15] MEDS: Aspirin 325 MG Tab PO SCH ×2 (08:17→20:45)
[2016-07-15] MEDS ORDERED: Magnesium Citrate Solution 296 ML Bottle PO ONE (10:14)
--- NOTE | 2016-07-15 10:20 | PCM.CONSN ---
- General Info Date of Service: 07/15/16 - Review of Systems Systems Review Comment:: no respiratory complaints. He has knee pain despite norco 5 /325 po q 4 hours No BM since admission. He ate oatmeal this am. - Patient Data Vitals - most recent: Last Vital Signs Temp 98.2 F 07/15/16 08:00 Pulse 75 07/15/16 08:17 Resp 26 H 07/15/16 08:00 BP 120/60 07/15/16 08:17 Pulse Ox 90 L 07/15/16 08:00 Weight - most recent: 148.5 kg I&O - last 24 hours: Intake & Output 07/14/16 07/15/16 07/15/16 22:59 06:59 14:59 Intake Total 800 Output Total 1200 Balance -400 Lab Results last 24 hrs: Laboratory Results - last 24 hr 07/14/16 07/14/16 07/14/16 Range/Units 11:36 16:47 20:26 Sodium (136-146) mmol/L Potassium (3.5-5.1) mmol/L Chloride (98-110) mmol/L Carbon Dioxide (21-31) mmol/L BUN (6.0-23.0) mg/dL Creatinine (0.6-1.5) mg/dL Est Cr Clr Drug Dosing mL/min Estimated GFR (MDRD) ml/min Glucose (60-110) mg/dL POC Glucose 116 H 217 H 197 H (60-110) mg/dL Calcium (8.8-10.8) mg/dL Magnesium (1.5-2.3) mEq/L 07/15/16 07/15/16 07/15/16 Range/Units 04:50 04:50 06:18 Sodium 142 (136-146) mmol/L Potassium 4.8 (3.5-5.1) mmol/L Chloride 109 (98-110) mmol/L Carbon Dioxide 26 (21-31) mmol/L BUN 51 H (6.0-23.0) mg/dL Creatinine 1.3 (0.6-1.5) mg/dL Est Cr Clr Drug Dosing 50.04 mL/min Estimated GFR (MDRD) 53.7 ml/min Glucose 110 (60-110) mg/dL POC Glucose 128 H (60-110) mg/dL Calcium 8.1 L (8.8-10.8) mg/dL Magnesium 2.2 (1.5-2.3) mEq/L [place] Results last 24 hrs: Microbiology 07/12/16 18:22 Aerobic Blood Culture - Preliminary Blood - Venous - Lab Draw NO GROWTH AFTER 2 DAYS Anaerobic Blood Culture - Final 07/12/16 18:11 Aerobic Blood Culture - Preliminary Blood - Venous NO GROWTH AFTER 2 DAYS Anaerobic Blood Culture - Preliminary NO GROWTH AFTER 2 DAYS 07/12/16 07:55 Urine Culture - Final Urine, [place] Cath (Indwelling) No Growth Med Orders - Current: Current Medications Hydrocodone Bitart/Acetaminophen (Reardan 325-10 Mg) 1 tab PO Q3H PRN PRN Reason: Pain Al Hydroxide/Mg Hydroxide (Mag-Al Plus) 30 ml PO Q4H PRN PRN Reason: indigestion Aspirin (Aspirin) 325 mg PO BID [facility] Last Admin: 07/15/16 08:17 Dose: 325 mg Bisacodyl (Dulcolax) 10 mg RECTAL DAILY PRN PRN Reason: Constipation Diphenhydramine HCl (Benadryl) 25 - 50 mg PO Q6H PRN PRN Reason: Itching Docusate Sodium (Colace) 100 mg PO BID [facility] Last Admin: 07/15/16 08:17 Dose: 100 mg Insulin Aspart (Novolog) 0 unit SUBCUT TIDAC [facility] PRN Reason: Protocol Last Admin: 07/15/16 06:31 Dose: Not Given Insulin Detemir (Levemir) 40 unit SUBCUT BEDTIME [facility] Last Admin: 07/14/16 20:27 Dose: 40 units Magnesium Citrate (Citrate Of Magnesia) 296 ml PO ONETIME ONE Stop: 07/15/16 10:15 Metoprolol Succinate (Toprol Xl) 50 mg PO DAILY [facility] Last Admin: 07/15/16 08:17 Dose: 50 mg Ondansetron HCl (Zofran) 4 mg IV Q6HR PRN PRN Reason: NAUSEA/VOMITING Last Admin: 07/11/16 08:28 Dose: 4 mg Oxybutynin Chloride (Oxybutynin) 5 mg PO BEDTIME [facility] Last Admin: 07/14/16 20:28 Dose: 5 mg Scopolamine (Transderm-Scop) 1.5 mg TRDERM ONARRIVE [facility] Last Admin: 07/09/16 07:27 Dose: 1.5 mg Sodium Chloride (Saline Flush) 10 ml FLUSH ASDIRECTED PRN PRN Reason: Keep Vein Open Sodium Chloride (Saline Flush) 2.5 ml FLUSH ASDIRECTED PRN PRN Reason: Keep Vein Open Discontinued Medications Acetaminophen (Tylenol Extra Strength) 1,000 mg PO Q6H [facility] Last Admin: 07/13/16 13:28 Dose: 1,000 mg Hydrocodone Bitart/Acetaminophen (Reardan 325-5 Mg) 1 tab PO Q4H PRN PRN Reason: Pain Last Admin: 07/15/16 07:18 Dose: 1 tab Celecoxib (Celebrex) 200 mg PO DAILY [facility] Ephedrine Sulfate (Ephedrine Sulfate) Confirm Administered Dose 100 mg .ROUTE .STK-MED ONE Stop: 07/09/16 07:16 Famotidine (Pepcid) 40 mg IVPUSH ONARRIVE [facility] Stop: 07/09/16 12:01 Last Admin: 07/09/16 07:28 Dose: 40 mg Fentanyl (Sublimaze) Confirm Administered Dose 100 mcg .ROUTE .STK-MED ONE Stop: 07/09/16 07:15 Fentanyl (Sublimaze) Confirm Administered Dose 100 mcg .ROUTE .STK-MED ONE Stop: 07/09/16 07:16 Fentanyl (Sublimaze) 50 mcg IVPUSH Q5M PRN PRN Reason: Pain (severe 7-10) Stop: 07/10/16 09:42 Last Admin: 07/09/16 11:18 Dose: 50 mcg Furosemide (Lasix) 80 mg PO BID [facility] Last Admin: 07/09/16 20:38 Dose: 80 mg Furosemide (Lasix) 80 mg PO BIDDIURETIC [facility] Last Admin: 07/12/16 08:06 Dose: 80 mg Furosemide (Lasix) 80 mg IVPUSH NOW ONE Stop: 07/12/16 21:25 Last Admin: 07/12/16 21:46 Dose: 80 mg Hydromorphone HCl (Dilaudid) 0.5 - 1 mg IVPUSH Q3H PRN PRN Reason: Pain Last Admin: 07/10/16 11:28 Dose: 1 mg Hydromorphone HCl (Dilaudid) 0.5 - 1 mg IVPUSH Q3H PRN PRN Reason: Pain Last Admin: 05/10/17 17:53 Dose: 1 mg Acetaminophen 1,000 mg/ Premix 100 mls @ 400 mls/hr IV ONARRIVE [facility] Stop: 07/09/16 12:01 Ropivacaine 49.25 ml/Ketorolac Tromethamine 30 mg/Epinephrine HCl 0.5 mg/ Clonidine HCl 80 mcg/ Sodium Chloride 100 mls @ 50 mls/min INJECT ASDIRECTED [facility] Stop: 07/09/16 12:01 Lactated Ringer's (Ringers, Lactated) 1,000 mls @ 100 mls/hr IV ASDIRECTED [facility] Last Admin: 07/09/16 07:25 Dose: 100 mls/hr Tranexamic Acid 4,000 mg/ (Sodium Chloride) 140 mls @ 600 mls/hr IV ASDIRECTED [facility] Stop: 07/09/16 12:01 Cefazolin Sodium/Dextrose 2 gm (/ Premix) 50 mls @ 100 mls/hr IV ONCALL [facility] Stop: 07/09/16 12:01 Dextrose/Water (Dextrose 5% In Water) 500 mls @ 75 mls/hr IV ASDIRECTED [facility] Last Admin: 07/09/16 07:26 Dose: 75 mls/hr Acetaminophen (Ofirmev) 1,000 mls @ 4,000 mls/hr IV ONARRIVE [facility] Stop: 07/09/16 12:01 Last Admin: 07/09/16 07:27 Dose: 4,000 mls/hr Cefazolin Sodium/Dextrose 2 gm (/ Premix) 50 mls @ 100 mls/hr IV Q8HR [facility] Stop: 07/09/16 22:29 Last Infusion: 07/09/16 17:28 Dose: Infused Cefazolin Sodium/Dextrose 2 gm (/ Premix) 50 mls @ 100 mls/hr IV Q8HR [facility] Stop: 07/10/16 03:29 Last Admin: 07/10/16 05:49 Dose: Not Given Ceftriaxone Sodium/Dextrose 1 (gm/ Premix) 50 mls @ 100 mls/hr IV ONETIME ONE Stop: 07/12/16 09:29 Last Admin: 07/12/16 09:31 Dose: 100 mls/hr Sodium Chloride (Normal Saline) 1,000 mls @ 125 mls/hr IV ASDIRECTED [facility] Last Admin: 07/12/16 09:31 Dose: 75 mls/hr Ceftriaxone Sodium/Dextrose 1 (gm/ Premix) 50 mls @ 100 mls/hr IV Q24H [facility] Sodium Chloride (Normal Saline) 1,000 mls @ 125 mls/hr IV ASDIRECTED [facility] Last Admin: 07/14/16 02:20 Dose: 125 mls/hr Levofloxacin/Dextrose 750 mg/ (Premix) 150 mls @ 100 mls/hr IV Q48H [facility] Last Admin: 07/12/16 22:54 Dose: Not Given Piperacillin Sod/Tazobactam (Sod 2.25 gm/ Sodium Chloride) 50 mls @ 100 mls/hr IV Q6H [facility] Last Admin: 07/13/16 15:36 Dose: 100 mls/hr Vancomycin HCl 2 gm/ Sodium (Chloride) 500 mls @ 333.333 mls/hr IV Q24H [facility] Last Admin: 07/12/16 22:54 Dose: Not Given Levofloxacin/Dextrose 750 mg/ (Premix) 150 mls @ 100 mls/hr IV Q48H [facility] Last Admin: 07/13/16 00:18 Dose: 100 mls/hr Vancomycin HCl 2 gm/ Sodium (Chloride) 500 mls @ 333.333 mls/hr IV Q24H [facility] Last Admin: 07/12/16 22:36 Dose: 333.333 mls/hr Sodium Chloride (Normal Saline) 1,000 mls @ 50 mls/hr IV ASDIRECTED [facility] Sodium Chloride (Normal Saline) 1,000 mls @ 50 mls/hr IV ASDIRECTED [facility] Last Admin: 07/14/16 12:54 Dose: 50 mls/hr Ketorolac Tromethamine (Toradol) 15 mg IVPUSH ONARRIVE [facility] Last Admin: 07/09/16 07:28 Dose: 15 mg Ketorolac Tromethamine (Toradol) 15 mg IVPUSH Q6H [facility] Stop: 07/10/16 03:01 Ketorolac Tromethamine (Toradol) 15 mg IVPUSH Q6H [facility] Stop: 07/17/16 00:01 Last Admin: 07/12/16 05:13 Dose: 15 mg Lidocaine (Xylocaine-Mpf 2%) Confirm Administered Dose 10 ml .ROUTE .STK-MED ONE Stop: 07/09/16 07:15 Lidocaine (Xylocaine-Mpf 2%) Confirm Administered Dose 5 ml .ROUTE .STK-MED ONE Stop: 07/09/16 07:19 Lidocaine HCl (Xylocaine 1%) Confirm Administered Dose 50 ml .ROUTE .STK-MED ONE Stop: 07/09/16 06:49 Losartan Potassium (Cozaar) 100 mg PO DAILY [facility] Metoprolol Succinate (Toprol Xl) 50 mg PO ONETIME ONE Stop: 07/12/16 00:19 Last Admin: 07/12/16 00:39 Dose: 50 mg Midazolam HCl (Versed 1 Mg/Ml) Confirm Administered Dose 2 mg .ROUTE .STK-MED ONE Stop: 07/09/16 07:15 Morphine Sulfate (Morphine) 4 mg IVPUSH Q4H PRN PRN Reason: moderate pain Ondansetron HCl (Zofran) Confirm Administered Dose 4 mg .ROUTE .STK-MED ONE Stop: 07/09/16 07:16 Oxycodone HCl (Oxycontin) 10 mg PO ONARRIVE [facility] Stop: 07/09/16 12:01 Last Admin: 07/09/16 07:27 Dose: 10 mg Oxycodone HCl (Oxycodone) 5 - 10 mg PO Q4H PRN PRN Reason: Pain Last Admin: 07/11/16 16:26 Dose: 10 mg Oxycodone HCl (Oxycontin) 10 mg PO Q12HR [facility] Last Admin: 07/11/16 22:21 Dose: Not Given Phenylephrine HCl (Alexis-Synephrine) Confirm Administered Dose 10 mg .ROUTE .STK- MED ONE Stop: 07/09/16 08:53 Potassium Chloride (Klor-Con M20) 20 meq PO DAILY [facility] Propofol (Diprivan 20 Ml) Confirm Administered Dose 400 mg .ROUTE .STK-MED ONE Stop: 07/09/16 07:15 Propofol (Diprivan 20 Ml) Confirm Administered Dose 200 mg .ROUTE .STK-MED ONE Stop: 07/09/16 07:19 Succinylcholine Chloride (Succinylcholine In Ns Pf) Confirm Administered Dose 200 mg .ROUTE .STK-MED ONE Stop: 07/09/16 07:17 Tranexamic Acid (Cyklokapron) Confirm Administered Dose 4,000 mg .ROUTE .STK- MED ONE Stop: 07/09/16 07:12 Vancomycin HCl (Pharmacy To Dose - Vancomycin) 1 dose .XX ASDIRECTED [facility] - Exam General: alert, oriented Neck: trachea midline Lungs: Clear to auscultation, Normal respiratory effort Cardiovascular: Regular Rate, Regular Rhythm Abdomen: no tenderness, distension (mild diffuse distention) Consult PN Assessment/Plan Procedures: Procedures ASSAY OF IRON (02/21/15) CHEST X-RAY 2VW FRONTAL&LATL (04/30/16) COMPLETE CBC AUTOMATED (12/07/14) COMPLETE CBC W/AUTO DIFF WBC (06/25/16) COMPREHEN METABOLIC PANEL (06/25/16) ELECTROCARDIOGRAM TRACING (04/30/16) GLYCOSYLATED HEMOGLOBIN TEST (06/08/16) LIPID PANEL (04/30/16) MEDICAL NUTRITION INDIV IN (01/20/15) MRI JNT OF LWR EXTRE W/O DYE (04/24/16) OFFICE/OUTPATIENT VISIT EST (01/17/15) OFFICE/OUTPATIENT VISIT NEW (12/09/14) PROTHROMBIN TIME (06/25/16) ROUTINE VENIPUNCTURE (06/25/16) THROMBOPLASTIN TIME PARTIAL (06/25/16) TTE W/DOPPLER COMPLETE (12/31/14) URINALYSIS AUTO W/SCOPE (06/25/16) X-RAY EXAM KNEE 4 OR MORE (03/29/16) (1) Myoclonic jerking SNOMED Code(s): 62348115, 750002002 Code(s): G25.3 - MYOCLONUS Current Visit: Yes (2) Medication side effect SNOMED Code(s): 26808260 Code(s): T88.7XXA - UNSP ADVERSE EFFECT OF DRUG OR MEDICAMENT, INIT ENCNTR Current Visit: Yes (3) A-fib SNOMED Code(s): 54408690 Code(s): I48.91 - UNSPECIFIED ATRIAL FIBRILLATION Current Visit: Yes (4) LOUISE (acute kidney injury) SNOMED Code(s): 64058593 Code(s): N17.9 - ACUTE KIDNEY FAILURE, UNSPECIFIED Current Visit: Yes (5) DM type 2 (diabetes mellitus, type 2) SNOMED Code(s): 06481836 Code(s): E11.9 - TYPE 2 DIABETES MELLITUS WITHOUT COMPLICATIONS Current Visit: Yes Qualifiers: Diabetes mellitus complication status: without complication Diabetes mellitus terminal operations manager insulin use: with terminal operations manager use Qualified Code(s): E11.9 - Type 2 diabetes mellitus without complications; Z79.4 - long term care administrator (current) use of insulin (6) HTN (hypertension) SNOMED Code(s): 73127403 Code(s): I10 - ESSENTIAL (PRIMARY) HYPERTENSION Current Visit: Yes Qualifiers: Hypertension type: essential hypertension Qualified Code(s): I10 - Essential (primary) hypertension (7) Morbid obesity with BMI of 40.0-44.9, adult SNOMED Code(s): 038652069 Code(s): E66.01 - MORBID (SEVERE) OBESITY DUE TO EXCESS CALORIES; Z68.41 - BODY MASS INDEX (BMI) 40.0-44.9, ADULT Current Visit: Yes (8) S/P total knee arthroplasty SNOMED Code(s): 2939640767712, 147772070, 0278210773997 Code(s): Z96.659 - PRESENCE OF UNSPECIFIED ARTIFICIAL KNEE JOINT Current Visit: Yes Qualifiers: Laterality: right Qualified Code(s): Z96.651 - Presence of right artificial knee joint (9) CHF (congestive heart failure) SNOMED Code(s): 92051105 Code(s): I50.9 - HEART FAILURE, UNSPECIFIED Current Visit: Yes Qualifiers: Congestive heart failure type: systolic (10) Pneumonia SNOMED Code(s): 192172717 Code(s): J18.9 - PNEUMONIA, UNSPECIFIED ORGANISM Current Visit: Yes (11) Constipation SNOMED Code(s): 73485583 Code(s): K59.00 - CONSTIPATION, UNSPECIFIED Current Visit: Yes Problem List Initiated/Reviewed/Updated: Yes My Orders last 24 hours: My Active Orders 07/15/16 10:14 Magnesium Citrate [Citrate of Magnesia] 296 ml PO ONETIME ONE 07/15/16 10:16 Acetaminophen/HYDROcodone [Reardan 325-10 MG] 1 tab PO Q3H PRN 07/16/16 05:11 BASIC METABOLIC PANEL,BMP [CHEM] AM CBC WITH AUTO DIFF [HEME] AM Plan: July 15, 2016 mg citrate today renal function stabilized. increase norco to norco 10/325 q 3 hour prn pain. discharge to [place] planned tomorrow. Hitesh Christopher MD
[2016-07-15] MEDS: Acetaminophen/HYDROcodone 325-10 MG Tab PO PRN ×3 (11:07→23:41)
--- NOTE | 2016-07-15 12:19 | PCM.SURGPN ---
- General Info Date of Service: 07/15/16 POD#: 6 Functional Status: Reports: pain controlled - Review of Systems General: Reports: No Symptoms Pulmonary: Reports: no symptoms Cardiovascular: Reports: No Symptoms Gastrointestinal: Reports: Constipation Genitourinary: Reports: no symptoms Neurological: Reports: No Symptoms Psychiatric: Reports: no symptoms Systems Review Comment:: Patient doing well. No complaints. [place] dosage increased, seems to be working better. No BM since surgery. - Patient Data Vitals - most recent: Last Vital Signs Temp 98.1 F 07/15/16 12:00 Pulse 64 07/15/16 12:00 Resp 20 07/15/16 12:00 BP 135/74 07/15/16 12:00 Pulse Ox 94 L 07/15/16 12:00 Weight - most recent: 148.5 kg I&O - last 24 hours: Intake & Output 07/14/16 07/15/16 07/15/16 22:59 06:59 14:59 Intake Total 800 Output Total 1200 Balance -400 Lab Results last 24 hrs: Laboratory Results - last 24 hr 07/14/16 07/14/16 07/15/16 Range/Units 16:47 20:26 04:50 Sodium (136-146) mmol/L Potassium (3.5-5.1) mmol/L Chloride (98-110) mmol/L Carbon Dioxide (21-31) mmol/L BUN (6.0-23.0) mg/dL Creatinine (0.6-1.5) mg/dL Est Cr Clr Drug Dosing mL/min Estimated GFR (MDRD) ml/min Glucose (60-110) mg/dL POC Glucose 217 H 197 H (60-110) mg/dL Calcium (8.8-10.8) mg/dL Magnesium 2.2 (1.5-2.3) mEq/L 07/15/16 07/15/16 07/15/16 Range/Units 04:50 06:18 11:16 Sodium 142 (136-146) mmol/L Potassium 4.8 (3.5-5.1) mmol/L Chloride 109 (98-110) mmol/L Carbon Dioxide 26 (21-31) mmol/L BUN 51 H (6.0-23.0) mg/dL Creatinine 1.3 (0.6-1.5) mg/dL Est Cr Clr Drug Dosing 50.04 mL/min Estimated GFR (MDRD) 53.7 ml/min Glucose 110 (60-110) mg/dL POC Glucose 128 H 154 H (60-110) mg/dL Calcium 8.1 L (8.8-10.8) mg/dL Magnesium (1.5-2.3) mEq/L [place] Results last 24 hrs: Microbiology 07/12/16 18:22 Aerobic Blood Culture - Preliminary Blood - Venous - Lab Draw NO GROWTH AFTER 2 DAYS Anaerobic Blood Culture - Final 07/12/16 18:11 Aerobic Blood Culture - Preliminary Blood - Venous NO GROWTH AFTER 2 DAYS Anaerobic Blood Culture - Preliminary NO GROWTH AFTER 2 DAYS 07/12/16 07:55 Urine Culture - Final Urine, [place] Cath (Indwelling) No Growth Med Orders - Current: Current Medications Hydrocodone Bitart/Acetaminophen ([place] 325-10 Mg) 1 tab PO Q3H PRN PRN Reason: Pain Last Admin: 07/15/16 11:07 Dose: 1 tab Al Hydroxide/Mg Hydroxide (Mag-Al Plus) 30 ml PO Q4H PRN PRN Reason: indigestion Aspirin (Aspirin) 325 mg PO BID [facility] Last Admin: 07/15/16 08:17 Dose: 325 mg Bisacodyl (Dulcolax) 10 mg RECTAL DAILY PRN PRN Reason: Constipation Diphenhydramine HCl (Benadryl) 25 - 50 mg PO Q6H PRN PRN Reason: Itching Docusate Sodium (Colace) 100 mg PO BID [facility] Last Admin: 07/15/16 08:17 Dose: 100 mg Insulin Aspart (Novolog) 0 unit SUBCUT TIDAC [facility] PRN Reason: Protocol Last Admin: 07/15/16 11:40 Dose: 2 units Insulin Detemir (Levemir) 40 unit SUBCUT BEDTIME [facility] Last Admin: 07/14/16 20:27 Dose: 40 units Metoprolol Succinate (Toprol Xl) 50 mg PO DAILY [facility] Last Admin: 07/15/16 08:17 Dose: 50 mg Ondansetron HCl (Zofran) 4 mg IV Q6HR PRN PRN Reason: NAUSEA/VOMITING Last Admin: 07/11/16 08:28 Dose: 4 mg Oxybutynin Chloride (Oxybutynin) 5 mg PO BEDTIME [facility] Last Admin: 07/14/16 20:28 Dose: 5 mg Scopolamine (Transderm-Scop) 1.5 mg TRDERM ONARRIVE [facility] Last Admin: 07/09/16 07:27 Dose: 1.5 mg Sodium Chloride (Saline Flush) 10 ml FLUSH ASDIRECTED PRN PRN Reason: Keep Vein Open Sodium Chloride (Saline Flush) 2.5 ml FLUSH ASDIRECTED PRN PRN Reason: Keep Vein Open Discontinued Medications Acetaminophen (Tylenol Extra Strength) 1,000 mg PO Q6H [facility] Last Admin: 07/13/16 13:28 Dose: 1,000 mg Hydrocodone Bitart/Acetaminophen ([place] 325-5 Mg) 1 tab PO Q4H PRN PRN Reason: Pain Last Admin: 07/15/16 07:18 Dose: 1 tab Celecoxib (Celebrex) 200 mg PO DAILY [facility] Ephedrine Sulfate (Ephedrine Sulfate) Confirm Administered Dose 100 mg .ROUTE .STK-MED ONE Stop: 07/09/16 07:16 Famotidine (Pepcid) 40 mg IVPUSH ONARRIVE [facility] Stop: 07/09/16 12:01 Last Admin: 07/09/16 07:28 Dose: 40 mg Fentanyl (Sublimaze) Confirm Administered Dose 100 mcg .ROUTE .STK-MED ONE Stop: 07/09/16 07:15 Fentanyl (Sublimaze) Confirm Administered Dose 100 mcg .ROUTE .STK-MED ONE Stop: 07/09/16 07:16 Fentanyl (Sublimaze) 50 mcg IVPUSH Q5M PRN PRN Reason: Pain (severe 7-10) Stop: 07/10/16 09:42 Last Admin: 07/09/16 11:18 Dose: 50 mcg Furosemide (Lasix) 80 mg PO BID [facility] Last Admin: 07/09/16 20:38 Dose: 80 mg Furosemide (Lasix) 80 mg PO BIDDIURETIC [facility] Last Admin: 07/12/16 08:06 Dose: 80 mg Furosemide (Lasix) 80 mg IVPUSH NOW ONE Stop: 07/12/16 21:25 Last Admin: 07/12/16 21:46 Dose: 80 mg Hydromorphone HCl (Dilaudid) 0.5 - 1 mg IVPUSH Q3H PRN PRN Reason: Pain Last Admin: 07/10/16 11:28 Dose: 1 mg Hydromorphone HCl (Dilaudid) 0.5 - 1 mg IVPUSH Q3H PRN PRN Reason: Pain Last Admin: 07/11/16 17:53 Dose: 1 mg Acetaminophen 1,000 mg/ Premix 100 mls @ 400 mls/hr IV ONARRIVE [facility] Stop: 07/09/16 12:01 Ropivacaine 49.25 ml/Ketorolac Tromethamine 30 mg/Epinephrine HCl 0.5 mg/ Clonidine HCl 80 mcg/ Sodium Chloride 100 mls @ 50 mls/min INJECT ASDIRECTED [facility] Stop: 07/09/16 12:01 Lactated Ringer's (Ringers, Lactated) 1,000 mls @ 100 mls/hr IV ASDIRECTED [facility] Last Admin: 07/09/16 07:25 Dose: 100 mls/hr Tranexamic Acid 4,000 mg/ (Sodium Chloride) 140 mls @ 600 mls/hr IV ASDIRECTED [facility] Stop: 07/09/16 12:01 Cefazolin Sodium/Dextrose 2 gm (/ Premix) 50 mls @ 100 mls/hr IV ONCALL [facility] Stop: 07/09/16 12:01 Dextrose/Water (Dextrose 5% In Water) 500 mls @ 75 mls/hr IV ASDIRECTED [facility] Last Admin: 07/09/16 07:26 Dose: 75 mls/hr Acetaminophen (Ofirmev) 1,000 mls @ 4,000 mls/hr IV ONARRIVE [facility] Stop: 07/09/16 12:01 Last Admin: 07/09/16 07:27 Dose: 4,000 mls/hr Cefazolin Sodium/Dextrose 2 gm (/ Premix) 50 mls @ 100 mls/hr IV Q8HR [facility] Stop: 07/09/16 22:29 Last Infusion: 07/09/16 17:28 Dose: Infused Cefazolin Sodium/Dextrose 2 gm (/ Premix) 50 mls @ 100 mls/hr IV Q8HR [facility] Stop: 07/10/16 03:29 Last Admin: 07/10/16 05:49 Dose: Not Given Ceftriaxone Sodium/Dextrose 1 (gm/ Premix) 50 mls @ 100 mls/hr IV ONETIME ONE Stop: 07/12/16 09:29 Last Admin: 07/12/16 09:31 Dose: 100 mls/hr Sodium Chloride (Normal Saline) 1,000 mls @ 125 mls/hr IV ASDIRECTED [facility] Last Admin: 07/12/16 09:31 Dose: 75 mls/hr Ceftriaxone Sodium/Dextrose 1 (gm/ Premix) 50 mls @ 100 mls/hr IV Q24H [facility] Sodium Chloride (Normal Saline) 1,000 mls @ 125 mls/hr IV ASDIRECTED [facility] Last Admin: 07/14/16 02:20 Dose: 125 mls/hr Levofloxacin/Dextrose 750 mg/ (Premix) 150 mls @ 100 mls/hr IV Q48H [facility] Last Admin: 07/12/16 22:54 Dose: Not Given Piperacillin Sod/Tazobactam (Sod 2.25 gm/ Sodium Chloride) 50 mls @ 100 mls/hr IV Q6H [facility] Last Admin: 07/13/16 15:36 Dose: 100 mls/hr Vancomycin HCl 2 gm/ Sodium (Chloride) 500 mls @ 333.333 mls/hr IV Q24H [facility] Last Admin: 07/12/16 22:54 Dose: Not Given Levofloxacin/Dextrose 750 mg/ (Premix) 150 mls @ 100 mls/hr IV Q48H [facility] Last Admin: 07/13/16 00:18 Dose: 100 mls/hr Vancomycin HCl 2 gm/ Sodium (Chloride) 500 mls @ 333.333 mls/hr IV Q24H [facility] Last Admin: 07/12/16 22:36 Dose: 333.333 mls/hr Sodium Chloride (Normal Saline) 1,000 mls @ 50 mls/hr IV ASDIRECTED [facility] Sodium Chloride (Normal Saline) 1,000 mls @ 50 mls/hr IV ASDIRECTED [facility] Last Admin: 07/14/16 12:54 Dose: 50 mls/hr Ketorolac Tromethamine (Toradol) 15 mg IVPUSH ONARRIVE [facility] Last Admin: 07/09/16 07:28 Dose: 15 mg Ketorolac Tromethamine (Toradol) 15 mg IVPUSH Q6H [facility] Stop: 07/10/16 03:01 Ketorolac Tromethamine (Toradol) 15 mg IVPUSH Q6H [facility] Stop: 07/17/16 00:01 Last Admin: 07/12/16 05:13 Dose: 15 mg Lidocaine (Xylocaine-Mpf 2%) Confirm Administered Dose 10 ml .ROUTE .STK-MED ONE Stop: 07/09/16 07:15 Lidocaine (Xylocaine-Mpf 2%) Confirm Administered Dose 5 ml .ROUTE .STK-MED ONE Stop: 07/09/16 07:19 Lidocaine HCl (Xylocaine 1%) Confirm Administered Dose 50 ml .ROUTE .STK-MED ONE Stop: 07/09/16 06:49 Losartan Potassium (Cozaar) 100 mg PO DAILY [facility] Magnesium Citrate (Citrate Of Magnesia) 296 ml PO ONETIME ONE Stop: 07/15/16 10:15 Last Admin: 07/15/16 10:32 Dose: 296 ml Metoprolol Succinate (Toprol Xl) 50 mg PO ONETIME ONE Stop: 07/12/16 00:19 Last Admin: 07/12/16 00:39 Dose: 50 mg Midazolam HCl (Versed 1 Mg/Ml) Confirm Administered Dose 2 mg .ROUTE .STK-MED ONE Stop: 07/09/16 07:15 Morphine Sulfate (Morphine) 4 mg IVPUSH Q4H PRN PRN Reason: moderate pain Ondansetron HCl (Zofran) Confirm Administered Dose 4 mg .ROUTE .STK-MED ONE Stop: 07/09/16 07:16 Oxycodone HCl (Oxycontin) 10 mg PO ONARRIVE [facility] Stop: 07/09/16 12:01 Last Admin: 07/09/16 07:27 Dose: 10 mg Oxycodone HCl (Oxycodone) 5 - 10 mg PO Q4H PRN PRN Reason: Pain Last Admin: 07/11/16 16:26 Dose: 10 mg Oxycodone HCl (Oxycontin) 10 mg PO Q12HR [facility] Last Admin: 07/11/16 22:21 Dose: Not Given Phenylephrine HCl (Alexis-Synephrine) Confirm Administered Dose 10 mg .ROUTE .STK- MED ONE Stop: 07/09/16 08:53 Potassium Chloride (Klor-Con M20) 20 meq PO DAILY [facility] Propofol (Diprivan 20 Ml) Confirm Administered Dose 400 mg .ROUTE .STK-MED ONE Stop: 07/09/16 07:15 Propofol (Diprivan 20 Ml) Confirm Administered Dose 200 mg .ROUTE .STK-MED ONE Stop: 07/09/16 07:19 Succinylcholine Chloride (Succinylcholine In Ns Pf) Confirm Administered Dose 200 mg .ROUTE .STK-MED ONE Stop: 07/09/16 07:17 Tranexamic Acid (Cyklokapron) Confirm Administered Dose 4,000 mg .ROUTE .STK- MED ONE Stop: 07/09/16 07:12 Vancomycin HCl (Pharmacy To Dose - Vancomycin) 1 dose .XX ASDIRECTED [facility] - Exam Wound/Incisions: dressing dry and intact Quality Assessment: supplemental oxygen General: alert, oriented Physical Findings Comment:: Dressing dry/intact RLE. No calf TTP. Mild swelling in BLE. AT/EHL/gastroc 07/06. Sensation intact. DP 2+. - Problem List & Annotations (1) S/P total knee arthroplasty SNOMED Code(s): 2633234619808, 670808431, 4059103925021 Code(s): Z96.659 - PRESENCE OF UNSPECIFIED ARTIFICIAL KNEE JOINT Status: Acute Current Visit: Yes Qualifiers: Laterality: right Qualified Code(s): Z96.651 - Presence of right artificial knee joint - Problem List Review Problem List Initiated/Reviewed/Updated: Yes - My Orders Last 24 Hours: Active Orders 24 hr Category Date Time Status BASIC METABOLIC PANEL,BMP [CHEM] AM Lab 07/16/16 05:11 Ordered CBC WITH AUTO DIFF [HEME] AM Lab 07/16/16 05:11 Ordered Acetaminophen/HYDROcodone [[place] 325-10 MG] Med 07/15/16 10:16 Active 1 tab PO Q3H PRN Sodium Chloride 0.9% [Saline Flush] Med 07/14/16 17:06 Active 10 ml FLUSH ASDIRECTED PRN Sodium Chloride 0.9% [Saline Flush] Med 07/14/16 17:06 Active 2.5 ml FLUSH ASDIRECTED PRN Convert IV to Saline Lock [OM.PC] Routine Oth 07/14/16 12:50 Ordered Medication Orders Hydrocodone Bitart/Acetaminophen ([place] 325-10 Mg) 1 tab PO Q3H PRN PRN Reason: Pain Last Admin: 07/15/16 11:07 Dose: 1 tab Al Hydroxide/Mg Hydroxide (Mag-Al Plus) 30 ml PO Q4H PRN PRN Reason: indigestion Aspirin (Aspirin) 325 mg PO BID [facility] Last Admin: 07/15/16 08:17 Dose: 325 mg Admin: 07/14/16 20:28 Dose: 325 mg Admin: 07/14/16 08:54 Dose: 325 mg Admin: 07/13/16 20:36 Dose: 325 mg Admin: 07/13/16 08:34 Dose: 325 mg Admin: 07/12/16 21:01 Dose: 325 mg Admin: 07/12/16 08:06 Dose: 325 mg Admin: 07/11/16 20:49 Dose: 325 mg Admin: 07/11/16 08:27 Dose: 325 mg Admin: 07/10/16 20:09 Dose: 325 mg Admin: 07/10/16 08:39 Dose: 325 mg Bisacodyl (Dulcolax) 10 mg RECTAL DAILY PRN PRN Reason: Constipation Diphenhydramine HCl (Benadryl) 25 - 50 mg PO Q6H PRN PRN Reason: Itching Docusate Sodium (Colace) 100 mg PO BID [facility] Last Admin: 07/15/16 08:17 Dose: 100 mg Admin: 07/14/16 20:29 Dose: 100 mg Admin: 07/14/16 08:55 Dose: 100 mg Admin: 07/13/16 20:37 Dose: 100 mg Admin: 07/13/16 08:33 Dose: 100 mg Admin: 07/12/16 20:59 Dose: 100 mg Admin: 07/12/16 08:05 Dose: 100 mg Admin: 07/11/16 20:50 Dose: 100 mg Admin: 07/11/16 08:27 Dose: 100 mg Admin: 07/10/16 20:11 Dose: 100 mg Admin: 07/10/16 08:39 Dose: 100 mg Admin: 07/09/16 20:38 Dose: 100 mg Insulin Aspart (Novolog) 0 unit SUBCUT TIDAC [facility] PRN Reason: Protocol Last Admin: 07/15/16 11:40 Dose: 2 units Admin: 07/15/16 06:31 Dose: Admin: 07/14/16 17:04 Dose: 4 units Admin: 07/14/16 11:47 Dose: Not Given Admin: 07/14/16 06:50 Dose: Not Given Admin: 07/13/16 16:47 Dose: Not Given Admin: 07/13/16 11:42 Dose: Not Given Admin: 07/13/16 07:12 Dose: Admin: 07/12/16 17:01 Dose: Not Given Admin: 07/12/16 12:26 Dose: Not Given Admin: 07/12/16 08:18 Dose: Not Given Admin: 07/11/16 17:00 Dose: Not Given Admin: 07/11/16 11:34 Dose: 2 units Admin: 07/11/16 07:14 Dose: 2 units Admin: 07/10/16 16:47 Dose: Not Given Admin: 07/10/16 11:32 Dose: 2 units Admin: 07/10/16 06:30 Dose: Not Given Admin: 07/09/16 17:30 Dose: Not Given Insulin Detemir (Levemir) 40 unit SUBCUT BEDTIME [facility] Last Admin: 07/14/16 20:27 Dose: 40 units Admin: 07/13/16 20:37 Dose: 40 units Admin: 07/12/16 20:52 Dose: 40 units Admin: 07/11/16 21:08 Dose: 40 units Admin: 07/10/16 20:11 Dose: 40 units Admin: 07/09/16 21:14 Dose: 40 units Metoprolol Succinate (Toprol Xl) 50 mg PO DAILY [facility] Last Admin: 07/15/16 08:17 Dose: 50 mg Admin: 07/14/16 08:55 Dose: 50 mg Admin: 07/13/16 08:34 Dose: 50 mg Admin: 07/12/16 08:06 Dose: 50 mg Ondansetron HCl (Zofran) 4 mg IV Q6HR PRN PRN Reason: NAUSEA/VOMITING Last Admin: 07/11/16 08:28 Dose: 4 mg Oxybutynin Chloride (Oxybutynin) 5 mg PO BEDTIME [facility] Last Admin: 07/14/16 20:28 Dose: 5 mg Admin: 07/13/16 20:37 Dose: 5 mg Admin: 07/12/16 20:58 Dose: 5 mg Admin: 07/11/16 20:50 Dose: 5 mg Admin: 07/10/16 20:11 Dose: 5 mg Admin: 07/09/16 20:38 Dose: 5 mg Scopolamine (Transderm-Scop) 1.5 mg TRDERM ONARRIVE [facility] Last Admin: 07/09/16 07:27 Dose: 1.5 mg Sodium Chloride (Saline Flush) 10 ml FLUSH ASDIRECTED PRN PRN Reason: Keep Vein Open Sodium Chloride (Saline Flush) 2.5 ml FLUSH ASDIRECTED PRN PRN Reason: Keep Vein Open - Plan Plan (Free Text/Narrative):: 1. ASA, SCD, mobilization for DVt prophylaxis 2. Colace, miralax for constipation 3. [place] dosage increased, no sign of confusion 4. mobilize with nursing today, restart PT tomorrow 5. plan to d/c to [place] on Saturday 6. hgb stable 7. BUN/Cr normalized
[2016-07-15] MEDS: Oxybutynin 5 MG Tab PO SCH (20:45)
[2016-07-15] MEDS: Insulin Detemir 100 Units/ML 3 ML Pen SUBCUT SCH (20:50)
[2016-07-16] MEDS: Acetaminophen/HYDROcodone 325-10 MG Tab PO PRN ×3 (04:57→11:37)
[2016-07-16] MEDS: Insulin Aspart 100 Units/ML 3 ML Pen SUBCUT SCH ×2 (07:33→12:48)
--- NOTE | 2016-07-16 07:46 | PCM.SURGPN ---
- General Info Date of Service: 07/16/16 Date of Surgery/Procedure: 07/09/16 POD#: 7 Functional Status: Reports: pain controlled, tolerating diet, urinating - Review of Systems General: Reports: No Symptoms Pulmonary: Reports: no symptoms Cardiovascular: Reports: No Symptoms Gastrointestinal: Reports: No symptoms Genitourinary: Reports: no symptoms Musculoskeletal: Reports: leg pain, joint pain, joint swelling Neurological: Reports: No Symptoms Psychiatric: Reports: no symptoms - Patient Data Vitals - most recent: Last Vital Signs Temp 36.6 C 07/16/16 04:00 Pulse 68 07/16/16 04:00 Resp 19 07/16/16 04:00 BP 137/77 07/16/16 04:00 Pulse Ox 95 07/16/16 04:00 Weight - most recent: 148.6 kg I&O - last 24 hours: Intake & Output 07/15/16 07/16/16 07/16/16 22:59 06:59 14:59 Intake Total 600 950 Output Total 650 420 Balance -50 530 Lab Results last 24 hrs: Laboratory Results - last 24 hr 07/15/16 07/15/16 07/15/16 Range/Units 11:16 16:45 20:48 WBC (4.0-11.0) K/uL RBC (4.50-5.90) M/uL Hgb (13.0-17.0) g/dL Hct (38.0-50.0) % MCV (80.0-98.0) fL MCH (27.0-32.0) pg MCHC (31.0-37.0) g/dL RDW Std Deviation (28.0-62.0) fl RDW Coeff of [place] (11.0-15.0) % Plt Count (150-400) K/uL MPV (7.40-12.00) fL Add Manual Diff Neutrophils % (Manual) (48.0-80.0) % Band Neutrophils % % Lymphocytes % (Manual) (16.0-40.0) % Monocytes % (Manual) (0.0-15.0) % Eosinophils % (Manual) (0.0-7.0) % Nucleated RBC % /100WBC Absolute Seg Neuts Band Neutrophils # Lymphocytes # (Manual) Monocytes # (Manual) Eosinophils # (Manual) Nucleated RBCs # K/uL Sodium (136-146) mmol/L Potassium (3.5-5.1) mmol/L Chloride (98-110) mmol/L Carbon Dioxide (21-31) mmol/L BUN (6.0-23.0) mg/dL Creatinine (0.6-1.5) mg/dL Est Cr Clr Drug Dosing mL/min Estimated GFR (MDRD) ml/min Glucose (60-110) mg/dL POC Glucose 154 H 125 H 111 H (60-110) mg/dL Calcium (8.8-10.8) mg/dL 07/16/16 07/16/16 07/16/16 Range/Units 04:55 04:55 06:38 WBC 10.06 (4.0-11.0) K/uL RBC 3.42 L (4.50-5.90) M/uL Hgb 10.2 L (13.0-17.0) g/dL Hct 32.3 L (38.0-50.0) % MCV 94.4 (80.0-98.0) fL MCH 29.8 (27.0-32.0) pg MCHC 31.6 (31.0-37.0) g/dL RDW Std Deviation 55.0 (28.0-62.0) fl RDW Coeff of [place] 16 H (11.0-15.0) % Plt Count 221 (150-400) K/uL MPV 9.30 (7.40-12.00) fL Add Manual Diff YES Neutrophils % (Manual) 62 (48.0-80.0) % Band Neutrophils % 4 % Lymphocytes % (Manual) 27 (16.0-40.0) % Monocytes % (Manual) 6 (0.0-15.0) % Eosinophils % (Manual) 1 (0.0-7.0) % Nucleated RBC % 0.0 /100WBC Absolute Seg Neuts 6.2 Band Neutrophils # 0.4 Lymphocytes # (Manual) 2.7 Monocytes # (Manual) 0.6 Eosinophils # (Manual) 0.1 Nucleated RBCs # 0 K/uL Sodium 142 (136-146) mmol/L Potassium 5.1 (3.5-5.1) mmol/L Chloride 108 (98-110) mmol/L Carbon Dioxide 27 (21-31) mmol/L BUN 45 H (6.0-23.0) mg/dL Creatinine 1.2 (0.6-1.5) mg/dL Est Cr Clr Drug Dosing 54.21 mL/min Estimated GFR (MDRD) 58.9 ml/min Glucose 107 (60-110) mg/dL POC Glucose 104 (60-110) mg/dL Calcium 8.7 L (8.8-10.8) mg/dL Bradford Results last 24 hrs: Microbiology 07/12/16 18:22 Aerobic Blood Culture - Preliminary Blood - Venous - Lab Draw NO GROWTH AFTER 3 DAYS Anaerobic Blood Culture - Final 07/12/16 18:11 Aerobic Blood Culture - Preliminary Blood - Venous NO GROWTH AFTER 3 DAYS Anaerobic Blood Culture - Preliminary NO GROWTH AFTER 3 DAYS Med Orders - Current: Current Medications Hydrocodone Bitart/Acetaminophen ([place] 325-10 Mg) 1 tab PO Q3H PRN PRN Reason: Pain Last Admin: 07/16/16 04:57 Dose: 1 tab Al Hydroxide/Mg Hydroxide (Mag-Al Plus) 30 ml PO Q4H PRN PRN Reason: indigestion Aspirin (Aspirin) 325 mg PO BID [facility] Last Admin: 07/15/16 20:45 Dose: 325 mg Bisacodyl (Dulcolax) 10 mg RECTAL DAILY PRN PRN Reason: Constipation Last Admin: 07/15/16 14:39 Dose: 10 mg Diphenhydramine HCl (Benadryl) 25 - 50 mg PO Q6H PRN PRN Reason: Itching Docusate Sodium (Colace) 100 mg PO BID [facility] Last Admin: 07/15/16 23:08 Dose: Not Given Insulin Aspart (Novolog) 0 unit SUBCUT TIDAC [facility] PRN Reason: Protocol Last Admin: 07/16/16 07:33 Dose: Not Given Insulin Detemir (Levemir) 40 unit SUBCUT BEDTIME [facility] Last Admin: 07/15/16 20:50 Dose: 40 units Metoprolol Succinate (Toprol Xl) 50 mg PO DAILY [facility] Last Admin: 07/15/16 08:17 Dose: 50 mg Ondansetron HCl (Zofran) 4 mg IV Q6HR PRN PRN Reason: NAUSEA/VOMITING Last Admin: 07/11/16 08:28 Dose: 4 mg Oxybutynin Chloride (Oxybutynin) 5 mg PO BEDTIME [facility] Last Admin: 07/15/16 20:45 Dose: 5 mg Scopolamine (Transderm-Scop) 1.5 mg TRDERM ONARRIVE [facility] Last Admin: 07/09/16 07:27 Dose: 1.5 mg Sodium Chloride (Saline Flush) 10 ml FLUSH ASDIRECTED PRN PRN Reason: Keep Vein Open Sodium Chloride (Saline Flush) 2.5 ml FLUSH ASDIRECTED PRN PRN Reason: Keep Vein Open Discontinued Medications Acetaminophen (Tylenol Extra Strength) 1,000 mg PO Q6H [facility] Last Admin: 07/13/16 13:28 Dose: 1,000 mg Hydrocodone Bitart/Acetaminophen ([place] 325-5 Mg) 1 tab PO Q4H PRN PRN Reason: Pain Last Admin: 07/15/16 07:18 Dose: 1 tab Celecoxib (Celebrex) 200 mg PO DAILY [facility] Ephedrine Sulfate (Ephedrine Sulfate) Confirm Administered Dose 100 mg .ROUTE .STK-MED ONE Stop: 07/09/16 07:16 Famotidine (Pepcid) 40 mg IVPUSH ONARRIVE [facility] Stop: 07/09/16 12:01 Last Admin: 07/09/16 07:28 Dose: 40 mg Fentanyl (Sublimaze) Confirm Administered Dose 100 mcg .ROUTE .STK-MED ONE Stop: 07/09/16 07:15 Fentanyl (Sublimaze) Confirm Administered Dose 100 mcg .ROUTE .STK-MED ONE Stop: 07/09/16 07:16 Fentanyl (Sublimaze) 50 mcg IVPUSH Q5M PRN PRN Reason: Pain (severe 7-10) Stop: 07/10/16 09:42 Last Admin: 07/09/16 11:18 Dose: 50 mcg Furosemide (Lasix) 80 mg PO BID [facility] Last Admin: 07/09/16 20:38 Dose: 80 mg Furosemide (Lasix) 80 mg PO BIDDIURETIC [facility] Last Admin: 07/12/16 08:06 Dose: 80 mg Furosemide (Lasix) 80 mg IVPUSH NOW ONE Stop: 07/12/16 21:25 Last Admin: 07/12/16 21:46 Dose: 80 mg Hydromorphone HCl (Dilaudid) 0.5 - 1 mg IVPUSH Q3H PRN PRN Reason: Pain Last Admin: 05/09/17 11:28 Dose: 1 mg Hydromorphone HCl (Dilaudid) 0.5 - 1 mg IVPUSH Q3H PRN PRN Reason: Pain Last Admin: 07/11/16 17:53 Dose: 1 mg Acetaminophen 1,000 mg/ Premix 100 mls @ 400 mls/hr IV ONARRIVE [facility] Stop: 07/09/16 12:01 Ropivacaine 49.25 ml/Ketorolac Tromethamine 30 mg/Epinephrine HCl 0.5 mg/ Clonidine HCl 80 mcg/ Sodium Chloride 100 mls @ 50 mls/min INJECT ASDIRECTED [facility] Stop: 07/09/16 12:01 Lactated Ringer's (Ringers, Lactated) 1,000 mls @ 100 mls/hr IV ASDIRECTED [facility] Last Admin: 07/09/16 07:25 Dose: 100 mls/hr Tranexamic Acid 4,000 mg/ (Sodium Chloride) 140 mls @ 600 mls/hr IV ASDIRECTED [facility] Stop: 07/09/16 12:01 Cefazolin Sodium/Dextrose 2 gm (/ Premix) 50 mls @ 100 mls/hr IV ONCALL [facility] Stop: 07/09/16 12:01 Dextrose/Water (Dextrose 5% In Water) 500 mls @ 75 mls/hr IV ASDIRECTED [facility] Last Admin: 07/09/16 07:26 Dose: 75 mls/hr Acetaminophen (Ofirmev) 1,000 mls @ 4,000 mls/hr IV ONARRIVE [facility] Stop: 07/09/16 12:01 Last Admin: 07/09/16 07:27 Dose: 4,000 mls/hr Cefazolin Sodium/Dextrose 2 gm (/ Premix) 50 mls @ 100 mls/hr IV Q8HR [facility] Stop: 07/09/16 22:29 Last Infusion: 07/09/16 17:28 Dose: Infused Cefazolin Sodium/Dextrose 2 gm (/ Premix) 50 mls @ 100 mls/hr IV Q8HR [facility] Stop: 07/10/16 03:29 Last Admin: 07/10/16 05:49 Dose: Not Given Ceftriaxone Sodium/Dextrose 1 (gm/ Premix) 50 mls @ 100 mls/hr IV ONETIME ONE Stop: 07/12/16 09:29 Last Admin: 07/12/16 09:31 Dose: 100 mls/hr Sodium Chloride (Normal Saline) 1,000 mls @ 125 mls/hr IV ASDIRECTED [facility] Last Admin: 07/12/16 09:31 Dose: 75 mls/hr Ceftriaxone Sodium/Dextrose 1 (gm/ Premix) 50 mls @ 100 mls/hr IV Q24H [facility] Sodium Chloride (Normal Saline) 1,000 mls @ 125 mls/hr IV ASDIRECTED [facility] Last Admin: 07/14/16 02:20 Dose: 125 mls/hr Levofloxacin/Dextrose 750 mg/ (Premix) 150 mls @ 100 mls/hr IV Q48H [facility] Last Admin: 07/12/16 22:54 Dose: Not Given Piperacillin Sod/Tazobactam (Sod 2.25 gm/ Sodium Chloride) 50 mls @ 100 mls/hr IV Q6H [facility] Last Admin: 07/13/16 15:36 Dose: 100 mls/hr Vancomycin HCl 2 gm/ Sodium (Chloride) 500 mls @ 333.333 mls/hr IV Q24H [facility] Last Admin: 07/12/16 22:54 Dose: Not Given Levofloxacin/Dextrose 750 mg/ (Premix) 150 mls @ 100 mls/hr IV Q48H [facility] Last Admin: 07/13/16 00:18 Dose: 100 mls/hr Vancomycin HCl 2 gm/ Sodium (Chloride) 500 mls @ 333.333 mls/hr IV Q24H [facility] Last Admin: 07/12/16 22:36 Dose: 333.333 mls/hr Sodium Chloride (Normal Saline) 1,000 mls @ 50 mls/hr IV ASDIRECTED [facility] Sodium Chloride (Normal Saline) 1,000 mls @ 50 mls/hr IV ASDIRECTED [facility] Last Admin: 07/14/16 12:54 Dose: 50 mls/hr Ketorolac Tromethamine (Toradol) 15 mg IVPUSH ONARRIVE [facility] Last Admin: 07/09/16 07:28 Dose: 15 mg Ketorolac Tromethamine (Toradol) 15 mg IVPUSH Q6H [facility] Stop: 07/10/16 03:01 Ketorolac Tromethamine (Toradol) 15 mg IVPUSH Q6H [facility] Stop: 07/17/16 00:01 Last Admin: 07/12/16 05:13 Dose: 15 mg Lidocaine (Xylocaine-Mpf 2%) Confirm Administered Dose 10 ml .ROUTE .STK-MED ONE Stop: 07/09/16 07:15 Lidocaine (Xylocaine-Mpf 2%) Confirm Administered Dose 5 ml .ROUTE .STK-MED ONE Stop: 07/09/16 07:19 Lidocaine HCl (Xylocaine 1%) Confirm Administered Dose 50 ml .ROUTE .STK-MED ONE Stop: 07/09/16 06:49 Losartan Potassium (Cozaar) 100 mg PO DAILY [facility] Magnesium Citrate (Citrate Of Magnesia) 296 ml PO ONETIME ONE Stop: 07/15/16 10:15 Last Admin: 07/15/16 10:32 Dose: 296 ml Metoprolol Succinate (Toprol Xl) 50 mg PO ONETIME ONE Stop: 07/12/16 00:19 Last Admin: 07/12/16 00:39 Dose: 50 mg Midazolam HCl (Versed 1 Mg/Ml) Confirm Administered Dose 2 mg .ROUTE .STK-MED ONE Stop: 07/09/16 07:15 Morphine Sulfate (Morphine) 4 mg IVPUSH Q4H PRN PRN Reason: moderate pain Ondansetron HCl (Zofran) Confirm Administered Dose 4 mg .ROUTE .STK-MED ONE Stop: 07/09/16 07:16 Oxycodone HCl (Oxycontin) 10 mg PO ONARRIVE [facility] Stop: 07/09/16 12:01 Last Admin: 07/09/16 07:27 Dose: 10 mg Oxycodone HCl (Oxycodone) 5 - 10 mg PO Q4H PRN PRN Reason: Pain Last Admin: 07/11/16 16:26 Dose: 10 mg Oxycodone HCl (Oxycontin) 10 mg PO Q12HR [facility] Last Admin: 07/11/16 22:21 Dose: Not Given Phenylephrine HCl (Alexis-Synephrine) Confirm Administered Dose 10 mg .ROUTE .STK- MED ONE Stop: 07/09/16 08:53 Potassium Chloride (Klor-Con M20) 20 meq PO DAILY [facility] Propofol (Diprivan 20 Ml) Confirm Administered Dose 400 mg .ROUTE .STK-MED ONE Stop: 07/09/16 07:15 Propofol (Diprivan 20 Ml) Confirm Administered Dose 200 mg .ROUTE .STK-MED ONE Stop: 07/09/16 07:19 Succinylcholine Chloride (Succinylcholine In Ns Pf) Confirm Administered Dose 200 mg .ROUTE .STK-MED ONE Stop: 07/09/16 07:17 Tranexamic Acid (Cyklokapron) Confirm Administered Dose 4,000 mg .ROUTE .STK- MED ONE Stop: 07/09/16 07:12 Vancomycin HCl (Pharmacy To Dose - Vancomycin) 1 dose .XX ASDIRECTED [facility] - Exam Wound/Incisions: dressing dry and intact General: alert, oriented HEENT: Pupils equal, Pupils reactive Lungs: Normal respiratory effort, Other (Supplemental oxygen via nasal cannula) Cardiovascular: Regular Rate Extremities: other (Anterior tibialis, extensor hallucis longus and gastrocnemius strength +5/5 bilaterally. Sensation intact. Dorsalis pedis and posterior tibial pulses +2 bilaterally.) Neurological: no new focal deficit Psy/Mental Status: alert, normal affect, normal mood - Problem List Review Problem List Initiated/Reviewed/Updated: Yes - My Orders Last 24 Hours: Active Orders 24 hr Category Date Time Status Remove De [place] Catheter [Urinary Catheter Removal] [RC] Care 07/15/16 13:43 Active Per Unit Routine Acetaminophen/HYDROcodone [[place] 325-10 MG] Med 07/15/16 10:16 Active 1 tab PO Q3H PRN Medication Orders Hydrocodone Bitart/Acetaminophen ([place] 325-10 Mg) 1 tab PO Q3H PRN PRN Reason: Pain Last Admin: 07/16/16 04:57 Dose: 1 tab Admin: 07/15/16 23:41 Dose: 1 tab Admin: 07/15/16 18:12 Dose: 1 tab Admin: 07/15/16 11:07 Dose: 1 tab Al Hydroxide/Mg Hydroxide (Mag-Al Plus) 30 ml PO Q4H PRN PRN Reason: indigestion Aspirin (Aspirin) 325 mg PO BID [facility] Last Admin: 07/15/16 20:45 Dose: 325 mg Admin: 07/15/16 08:17 Dose: 325 mg Admin: 07/14/16 20:28 Dose: 325 mg Admin: 07/14/16 08:54 Dose: 325 mg Admin: 07/13/16 20:36 Dose: 325 mg Admin: 07/13/16 08:34 Dose: 325 mg Admin: 07/12/16 21:01 Dose: 325 mg Admin: 07/12/16 08:06 Dose: 325 mg Admin: 07/11/16 20:49 Dose: 325 mg Admin: 07/11/16 08:27 Dose: 325 mg Admin: 07/10/16 20:09 Dose: 325 mg Admin: 07/10/16 08:39 Dose: 325 mg Bisacodyl (Dulcolax) 10 mg RECTAL DAILY PRN PRN Reason: Constipation Last Admin: 07/15/16 14:39 Dose: 10 mg Diphenhydramine HCl (Benadryl) 25 - 50 mg PO Q6H PRN PRN Reason: Itching Docusate Sodium (Colace) 100 mg PO BID [facility] Last Admin: 07/15/16 23:08 Dose: Admin: 07/15/16 08:17 Dose: 100 mg Admin: 07/14/16 20:29 Dose: 100 mg Admin: 07/14/16 08:55 Dose: 100 mg Admin: 07/13/16 20:37 Dose: 100 mg Admin: 07/13/16 08:33 Dose: 100 mg Admin: 07/12/16 20:59 Dose: 100 mg Admin: 07/12/16 08:05 Dose: 100 mg Admin: 07/11/16 20:50 Dose: 100 mg Admin: 07/11/16 08:27 Dose: 100 mg Admin: 07/10/16 20:11 Dose: 100 mg Admin: 07/10/16 08:39 Dose: 100 mg Admin: 07/09/16 20:38 Dose: 100 mg Insulin Aspart (Novolog) 0 unit SUBCUT TIDAC [facility] PRN Reason: Protocol Last Admin: 07/16/16 07:33 Dose: Not Given Admin: 07/15/16 17:08 Dose: Not Given Admin: 07/15/16 11:40 Dose: 2 units Admin: 07/15/16 06:31 Dose: Admin: 07/14/16 17:04 Dose: 4 units Admin: 07/14/16 11:47 Dose: Not Given Admin: 07/14/16 06:50 Dose: Not Given Admin: 07/13/16 16:47 Dose: Not Given Admin: 07/13/16 11:42 Dose: Not Given Admin: 07/13/16 07:12 Dose: Admin: 07/12/16 17:01 Dose: Not Given Admin: 07/12/16 12:26 Dose: Not Given Admin: 07/12/16 08:18 Dose: Not Given Admin: 07/11/16 17:00 Dose: Not Given Admin: 07/11/16 11:34 Dose: 2 units Admin: 07/11/16 07:14 Dose: 2 units Admin: 07/10/16 16:47 Dose: Not Given Admin: 07/10/16 11:32 Dose: 2 units Admin: 07/10/16 06:30 Dose: Not Given Admin: 07/09/16 17:30 Dose: Not Given Insulin Detemir (Levemir) 40 unit SUBCUT BEDTIME [facility] Last Admin: 07/15/16 20:50 Dose: 40 units Admin: 07/14/16 20:27 Dose: 40 units Admin: 07/13/16 20:37 Dose: 40 units Admin: 07/12/16 20:52 Dose: 40 units Admin: 07/11/16 21:08 Dose: 40 units Admin: 07/10/16 20:11 Dose: 40 units Admin: 07/09/16 21:14 Dose: 40 units Metoprolol Succinate (Toprol Xl) 50 mg PO DAILY [facility] Last Admin: 07/15/16 08:17 Dose: 50 mg Admin: 07/14/16 08:55 Dose: 50 mg Admin: 07/13/16 08:34 Dose: 50 mg Admin: 07/12/16 08:06 Dose: 50 mg Ondansetron HCl (Zofran) 4 mg IV Q6HR PRN PRN Reason: NAUSEA/VOMITING Last Admin: 07/11/16 08:28 Dose: 4 mg Oxybutynin Chloride (Oxybutynin) 5 mg PO BEDTIME [facility] Last Admin: 07/15/16 20:45 Dose: 5 mg Admin: 07/14/16 20:28 Dose: 5 mg Admin: 07/13/16 20:37 Dose: 5 mg Admin: 07/12/16 20:58 Dose: 5 mg Admin: 07/11/16 20:50 Dose: 5 mg Admin: 07/10/16 20:11 Dose: 5 mg Admin: 07/09/16 20:38 Dose: 5 mg Scopolamine (Transderm-Scop) 1.5 mg TRDERM ONARRIVE [facility] Last Admin: 07/09/16 07:27 Dose: 1.5 mg Sodium Chloride (Saline Flush) 10 ml FLUSH ASDIRECTED PRN PRN Reason: Keep Vein Open Sodium Chloride (Saline Flush) 2.5 ml FLUSH ASDIRECTED PRN PRN Reason: Keep Vein Open - Assessment Assessment (Free Text/Narrative):: Patient up to chair this AM Pain well controlled over night Tolerating diet Hgb 10.2 this AM UO 1070 mL Patient reports SOB with ambulation Supplemental oxygen via nasal cannula Constipation resolved, reports BM - Plan Plan (Free Text/Narrative):: Continue pain management via [place] 10/325 mg Encourage ambulation, resume PT today Encourage PO fluid intake D/C to [facility] this afternoon
[2016-07-16] MEDS: Aspirin 325 MG Tab PO SCH (08:35)
[2016-07-16] MEDS: Docusate Sodium 100 MG Cap PO SCH (08:35)
[2016-07-16] MEDS: Metoprolol Succinate 50 MG Tab.ER PO SCH (08:35)
--- NOTE | 2016-07-16 08:44 | PCM.DCSUM1 ---
Discharge Summary - Hospital Course Free Text/Narrative:: 75 yo male had total right knee replacement on 07/09/16. Surgery was done by Dr. Rankin. Patient had history of DM, HTN and AF for which hospitalist team was consulted. Shortly after surgery patients developed LOUISE with rise of Cr from 1.5 baseline to 1.9. His Lasix was and Losartan was held but despite that his Creatinine continued to rise. IV NS was started at slow rates and patients I&O' s were monitored strictly for signs of volume overload. On Post-op day 3 his Creatinine reached 2.1 and urine started to appear dark and he also developed leukocytosis. UA was obtained which showed Positive Leukocyte esterase. He was given prophylactic rocephin and urine was sent for culture. Shortly after that patient also developed hypoxia and was placed on Oxygen via LFNC. Repeat CXR was done which was consistent with CHF exacerbation. UA was repeated and was negative for nitrite or LE but his white count was still raised. He was started on prophylactic antibiotics for possible HCAP. On Post-op day 4, patient improved significantly and UC was negative for growth. His renal function also started to improve and did return back to baseline. Patient was new admit to [facility]hab therefore discharge was not possible over weekend. Several attempts were made to wean patient off oxygen but were unsuccessful. He was down to 1L O2. He will be discharged to [place] [facility] with Oxygen as a PRN. Patient was not on home O2 prior to admission therefore PRN order will be placed to attempt to wean off oxygen. Patient will be needing PT and OT while at [facility] as per recommendations of Dr. Rankin. He will be followed up by dr. Conte who as accepted role as PCP during stay at [facility]. Admission Diagnosis: 1. Right Total Knee Replacement 2. DM 3. HTN 4. AFIB Discharge Diagnosis/Plan: 1. s/p Right Total Knee Replacement -as per directions of Orthosurgery -Carney 325-10 mg Q3H PRN for pain -PT/OT at [facility] 2. Hypoxia, secondary to Pleural effusion, improving, on 2L O2 via LFNC -DC to [facility] on O2 1L via LFNC during sleep and PRN to maintain O2 Sat over 90 % 3. CHF Exacerbation -Echo obtained prior to DC, result will be sent to PCP -patient was on Lasix 80 mg BID prior to admission -due to LOUISE we will DC him on Lasix 40 mg Daily 4. AF, rate controlled -patient was rate controlled without medication prior to admission -developed Tachycardia which was controlled with Metoprolol -he will be DC on Metoprolol 5. HTN, stable -resume Losartan 100 mg daily -Lasix changed from 80 mg BID to 40 mg Daily -added Metoprolol XL 50 mg daily 6. DM, stable, no changes made to home meds, resume home medications -accucheck TIDAC NHL -Metformin 1000 mg BID -Glimepiride 2 mg daily -Humalog TIDAC per sliding scale -Levamir 7. LOUISE, corrected -Lasix changed from 80 mg BID to 40 mg Daily -DC Toradol, Diclofenac and start Carney 325-10 mg Q3H PRN for pain - Discharge Data Discharge Date: 07/16/16 Discharge Disposition: DC/Tfer to [facility] 03 Condition: Good - Patient Summary/Data Operative Procedure(s) Performed: R TKA Consults: Consultations 07/09/16 10:03 Consult to Physician [CONS] Routine PT Evaluation and Treatment [CONS] Routine Labs Pending at D/C: Echo - Patient Instructions Diet: Usual Diet as Tolerated Activity: Apply Ice, As Tolerated, Elevate Extremity, Full Weight Bearing Activity, Other: Wheeled walker for ambulation. Driving: Do Not Drive Showering/Bathing: May Shower Wound/Incision Care: Keep Operative Site/Wound Site Clean and Dry Notify Provider of: Fever, Increased Pain, Swelling and Redness, Drainage, Nausea and/or Vomiting - Discharge Plan Prescriptions/Med Rec: Acetaminophen/HYDROcodone [Carney 325-10 MG] 1 tab PO Q3H PRN #80 tablet PRN Reason: Pain Furosemide [Lasix] 40 mg PO DAILY #7 tablet Home Medications: Home Meds Glimepiride [Amaryl] 2 mg PO DAILY 07/05/16 [History] Insulin Lispro [Humalog Kwikpen U-100] See Protocol SUBCUT TIDAC PRN 07/05/16 [ History] Losartan Potassium 100 mg PO DAILY 07/05/16 [History] Potassium Chloride 20 meq PO DAILY 07/05/16 [History] metFORMIN HCl [Metformin HCl] 1,000 mg PO BIDMEALS 07/05/16 [History] Acetaminophen/HYDROcodone [Carney 325-10 MG] 1 tab PO Q3H PRN #80 tablet [Rx] Aspirin [Ecotrin] 325 mg PO BID 07/16/16 [History] Aspirin [Hickory Aspirin] 81 mg PO DAILY #0 07/16/16 [Rx] Docusate Sodium 100 mg PO BID 07/16/16 [History] Furosemide [Lasix] 40 mg PO DAILY #7 tablet 07/16/16 [Rx] Metoprolol Succinate [Toprol XL] 50 mg PO DAILY tab.er 07/16/16 [Rx] Oxybutynin 5 mg PO BEDTIME tablet 07/16/16 [Rx] Patient Handouts: Acetaminophen; Hydrocodone tablets or capsules, Total Knee Replacement, Care After, [id number], Aspirin, ASA oral tablets, Docusate capsules Referrals: [facility] [Outside] Arlin Pierre PA-C [Physician Portable Sawmill Operator] - 07/19/16 9:00 am Angelique Rankin MD [Physician] - 08/16/16 10:45 am Moris Ga MD [Physician] - 07/19/16 8:00 am - Patient Data Vitals - Most Recent: Last Vital Signs Temp 36.8 C 07/16/16 07:52 Pulse 82 07/16/16 08:35 Resp 20 07/16/16 07:52 BP 133/65 07/16/16 08:35 Pulse Ox 94 L 07/16/16 07:52 Weight - Most Recent: 148.6 kg I&O - Last 24 hours: Intake & Output 07/15/16 07/16/16 07/16/16 22:59 06:59 14:59 Intake Total 600 950 Output Total 650 420 Balance -50 530 Lab Results - Last 24 hrs: Laboratory Results - last 24 hr 07/15/16 07/15/16 07/15/16 Range/Units 11:16 16:45 20:48 WBC (4.0-11.0) K/uL RBC (4.50-5.90) M/uL Hgb (13.0-17.0) g/dL Hct (38.0-50.0) % MCV (80.0-98.0) fL MCH (27.0-32.0) pg MCHC (31.0-37.0) g/dL RDW Std Deviation (28.0-62.0) fl RDW Coeff of Shawnee (11.0-15.0) % Plt Count (150-400) K/uL MPV (7.40-12.00) fL Add Manual Diff Neutrophils % (Manual) (48.0-80.0) % Band Neutrophils % % Lymphocytes % (Manual) (16.0-40.0) % Monocytes % (Manual) (0.0-15.0) % Eosinophils % (Manual) (0.0-7.0) % Nucleated RBC % /100WBC Absolute Seg Neuts Band Neutrophils # Lymphocytes # (Manual) Monocytes # (Manual) Eosinophils # (Manual) Nucleated RBCs # K/uL Sodium (136-146) mmol/L Potassium (3.5-5.1) mmol/L Chloride (98-110) mmol/L Carbon Dioxide (21-31) mmol/L BUN (6.0-23.0) mg/dL Creatinine (0.6-1.5) mg/dL Est Cr Clr Drug Dosing mL/min Estimated GFR (MDRD) ml/min Glucose (60-110) mg/dL POC Glucose 154 H 125 H 111 H (60-110) mg/dL Calcium (8.8-10.8) mg/dL 07/16/16 07/16/16 07/16/16 Range/Units 04:55 04:55 06:38 WBC 10.06 (4.0-11.0) K/uL RBC 3.42 L (4.50-5.90) M/uL Hgb 10.2 L (13.0-17.0) g/dL Hct 32.3 L (38.0-50.0) % MCV 94.4 (80.0-98.0) fL MCH 29.8 (27.0-32.0) pg MCHC 31.6 (31.0-37.0) g/dL RDW Std Deviation 55.0 (28.0-62.0) fl RDW Coeff of Shawnee 16 H (11.0-15.0) % Plt Count 221 (150-400) K/uL MPV 9.30 (7.40-12.00) fL Add Manual Diff YES Neutrophils % (Manual) 62 (48.0-80.0) % Band Neutrophils % 4 % Lymphocytes % (Manual) 27 (16.0-40.0) % Monocytes % (Manual) 6 (0.0-15.0) % Eosinophils % (Manual) 1 (0.0-7.0) % Nucleated RBC % 0.0 /100WBC Absolute Seg Neuts 6.2 Band Neutrophils # 0.4 Lymphocytes # (Manual) 2.7 Monocytes # (Manual) 0.6 Eosinophils # (Manual) 0.1 Nucleated RBCs # 0 K/uL Sodium 142 (136-146) mmol/L Potassium 5.1 (3.5-5.1) mmol/L Chloride 108 (98-110) mmol/L Carbon Dioxide 27 (21-31) mmol/L BUN 45 H (6.0-23.0) mg/dL Creatinine 1.2 (0.6-1.5) mg/dL Est Cr Clr Drug Dosing 54.21 mL/min Estimated GFR (MDRD) 58.9 ml/min Glucose 107 (60-110) mg/dL POC Glucose 104 (60-110) mg/dL Calcium 8.7 L (8.8-10.8) mg/dL ELVIA Results - Last 24 hrs: Microbiology 07/12/16 18:22 Aerobic Blood Culture - Preliminary Blood - Venous - Lab Draw NO GROWTH AFTER 3 DAYS Anaerobic Blood Culture - Final 07/12/16 18:11 Aerobic Blood Culture - Preliminary Blood - Venous NO GROWTH AFTER 3 DAYS Anaerobic Blood Culture - Preliminary NO GROWTH AFTER 3 DAYS Med Orders - Current: Current Medications Hydrocodone Bitart/Acetaminophen (Carney 325-10 Mg) 1 tab PO Q3H PRN PRN Reason: Pain Last Admin: 07/16/16 08:35 Dose: 1 tab Al Hydroxide/Mg Hydroxide (Mag-Al Plus) 30 ml PO Q4H PRN PRN Reason: indigestion Aspirin (Aspirin) 325 mg PO BID [facility] Last Admin: 07/16/16 08:35 Dose: 325 mg Bisacodyl (Dulcolax) 10 mg RECTAL DAILY PRN PRN Reason: Constipation Last Admin: 07/15/16 14:39 Dose: 10 mg Diphenhydramine HCl (Benadryl) 25 - 50 mg PO Q6H PRN PRN Reason: Itching Docusate Sodium (Colace) 100 mg PO BID [facility] Last Admin: 07/16/16 08:35 Dose: 100 mg Insulin Aspart (Novolog) 0 unit SUBCUT TIDAC [facility] PRN Reason: Protocol Last Admin: 07/16/16 07:33 Dose: Not Given Insulin Detemir (Levemir) 40 unit SUBCUT BEDTIME [facility] Last Admin: 07/15/16 20:50 Dose: 40 units Metoprolol Succinate (Toprol Xl) 50 mg PO DAILY [facility] Last Admin: 07/16/16 08:35 Dose: 50 mg Ondansetron HCl (Zofran) 4 mg IV Q6HR PRN PRN Reason: NAUSEA/VOMITING Last Admin: 07/11/16 08:28 Dose: 4 mg Oxybutynin Chloride (Oxybutynin) 5 mg PO BEDTIME [facility] Last Admin: 07/15/16 20:45 Dose: 5 mg Scopolamine (Transderm-Scop) 1.5 mg TRDERM ONARRIVE [facility] Last Admin: 07/09/16 07:27 Dose: 1.5 mg Sodium Chloride (Saline Flush) 10 ml FLUSH ASDIRECTED PRN PRN Reason: Keep Vein Open Sodium Chloride (Saline Flush) 2.5 ml FLUSH ASDIRECTED PRN PRN Reason: Keep Vein Open Discontinued Medications Acetaminophen (Tylenol Extra Strength) 1,000 mg PO Q6H [facility] Last Admin: 07/13/16 13:28 Dose: 1,000 mg Hydrocodone Bitart/Acetaminophen (Carney 325-5 Mg) 1 tab PO Q4H PRN PRN Reason: Pain Last Admin: 07/15/16 07:18 Dose: 1 tab Celecoxib (Celebrex) 200 mg PO DAILY [facility] Ephedrine Sulfate (Ephedrine Sulfate) Confirm Administered Dose 100 mg .ROUTE .STK-MED ONE Stop: 07/09/16 07:16 Famotidine (Pepcid) 40 mg IVPUSH ONARRIVE [facility] Stop: 07/09/16 12:01 Last Admin: 07/09/16 07:28 Dose: 40 mg Fentanyl (Sublimaze) Confirm Administered Dose 100 mcg .ROUTE .STK-MED ONE Stop: 07/09/16 07:15 Fentanyl (Sublimaze) Confirm Administered Dose 100 mcg .ROUTE .STK-MED ONE Stop: 07/09/16 07:16 Fentanyl (Sublimaze) 50 mcg IVPUSH Q5M PRN PRN Reason: Pain (severe 7-10) Stop: 07/10/16 09:42 Last Admin: 07/09/16 11:18 Dose: 50 mcg Furosemide (Lasix) 80 mg PO BID [facility] Last Admin: 07/09/16 20:38 Dose: 80 mg Furosemide (Lasix) 80 mg PO BIDDIURETIC [facility] Last Admin: 07/12/16 08:06 Dose: 80 mg Furosemide (Lasix) 80 mg IVPUSH NOW ONE Stop: 07/12/16 21:25 Last Admin: 07/12/16 21:46 Dose: 80 mg Hydromorphone HCl (Dilaudid) 0.5 - 1 mg IVPUSH Q3H PRN PRN Reason: Pain Last Admin: 07/10/16 11:28 Dose: 1 mg Hydromorphone HCl (Dilaudid) 0.5 - 1 mg IVPUSH Q3H PRN PRN Reason: Pain Last Admin: 07/11/16 17:53 Dose: 1 mg Acetaminophen 1,000 mg/ Premix 100 mls @ 400 mls/hr IV ONARRIVE [facility] Stop: 07/09/16 12:01 Ropivacaine 49.25 ml/Ketorolac Tromethamine 30 mg/Epinephrine HCl 0.5 mg/ Clonidine HCl 80 mcg/ Sodium Chloride 100 mls @ 50 mls/min INJECT ASDIRECTED [facility] Stop: 07/09/16 12:01 Lactated Ringer's (Ringers, Lactated) 1,000 mls @ 100 mls/hr IV ASDIRECTED [facility] Last Admin: 07/09/16 07:25 Dose: 100 mls/hr Tranexamic Acid 4,000 mg/ (Sodium Chloride) 140 mls @ 600 mls/hr IV ASDIRECTED [facility] Stop: 07/09/16 12:01 Cefazolin Sodium/Dextrose 2 gm (/ Premix) 50 mls @ 100 mls/hr IV ONCALL [facility] Stop: 07/09/16 12:01 Dextrose/Water (Dextrose 5% In Water) 500 mls @ 75 mls/hr IV ASDIRECTED [facility] Last Admin: 07/09/16 07:26 Dose: 75 mls/hr Acetaminophen (Ofirmev) 1,000 mls @ 4,000 mls/hr IV ONARRIVE [facility] Stop: 07/09/16 12:01 Last Admin: 07/09/16 07:27 Dose: 4,000 mls/hr Cefazolin Sodium/Dextrose 2 gm (/ Premix) 50 mls @ 100 mls/hr IV Q8HR [facility] Stop: 07/09/16 22:29 Last Infusion: 07/09/16 17:28 Dose: Infused Cefazolin Sodium/Dextrose 2 gm (/ Premix) 50 mls @ 100 mls/hr IV Q8HR [facility] Stop: 07/10/16 03:29 Last Admin: 07/10/16 05:49 Dose: Not Given Ceftriaxone Sodium/Dextrose 1 (gm/ Premix) 50 mls @ 100 mls/hr IV ONETIME ONE Stop: 07/12/16 09:29 Last Admin: 07/12/16 09:31 Dose: 100 mls/hr Sodium Chloride (Normal Saline) 1,000 mls @ 125 mls/hr IV ASDIRECTED [facility] Last Admin: 07/12/16 09:31 Dose: 75 mls/hr Ceftriaxone Sodium/Dextrose 1 (gm/ Premix) 50 mls @ 100 mls/hr IV Q24H [facility] Sodium Chloride (Normal Saline) 1,000 mls @ 125 mls/hr IV ASDIRECTED [facility] Last Admin: 07/14/16 02:20 Dose: 125 mls/hr Levofloxacin/Dextrose 750 mg/ (Premix) 150 mls @ 100 mls/hr IV Q48H [facility] Last Admin: 07/12/16 22:54 Dose: Not Given Piperacillin Sod/Tazobactam (Sod 2.25 gm/ Sodium Chloride) 50 mls @ 100 mls/hr IV Q6H [facility] Last Admin: 07/13/16 15:36 Dose: 100 mls/hr Vancomycin HCl 2 gm/ Sodium (Chloride) 500 mls @ 333.333 mls/hr IV Q24H [facility] Last Admin: 07/12/16 22:54 Dose: Not Given Levofloxacin/Dextrose 750 mg/ (Premix) 150 mls @ 100 mls/hr IV Q48H [facility] Last Admin: 07/13/16 00:18 Dose: 100 mls/hr Vancomycin HCl 2 gm/ Sodium (Chloride) 500 mls @ 333.333 mls/hr IV Q24H [facility] Last Admin: 07/12/16 22:36 Dose: 333.333 mls/hr Sodium Chloride (Normal Saline) 1,000 mls @ 50 mls/hr IV ASDIRECTED [facility] Sodium Chloride (Normal Saline) 1,000 mls @ 50 mls/hr IV ASDIRECTED [facility] Last Admin: 07/14/16 12:54 Dose: 50 mls/hr Ketorolac Tromethamine (Toradol) 15 mg IVPUSH ONARRIVE [facility] Last Admin: 07/09/16 07:28 Dose: 15 mg Ketorolac Tromethamine (Toradol) 15 mg IVPUSH Q6H [facility] Stop: 07/10/16 03:01 Ketorolac Tromethamine (Toradol) 15 mg IVPUSH Q6H [facility] Stop: 07/17/16 00:01 Last Admin: 07/12/16 05:13 Dose: 15 mg Lidocaine (Xylocaine-Mpf 2%) Confirm Administered Dose 10 ml .ROUTE .STK-MED ONE Stop: 07/09/16 07:15 Lidocaine (Xylocaine-Mpf 2%) Confirm Administered Dose 5 ml .ROUTE .STK-MED ONE Stop: 07/09/16 07:19 Lidocaine HCl (Xylocaine 1%) Confirm Administered Dose 50 ml .ROUTE .STK-MED ONE Stop: 07/09/16 06:49 Losartan Potassium (Cozaar) 100 mg PO DAILY [facility] Magnesium Citrate (Citrate Of Magnesia) 296 ml PO ONETIME ONE Stop: 07/15/16 10:15 Last Admin: 07/15/16 10:32 Dose: 296 ml Metoprolol Succinate (Toprol Xl) 50 mg PO ONETIME ONE Stop: 07/12/16 00:19 Last Admin: 07/12/16 00:39 Dose: 50 mg Midazolam HCl (Versed 1 Mg/Ml) Confirm Administered Dose 2 mg .ROUTE .STK-MED ONE Stop: 07/09/16 07:15 Morphine Sulfate (Morphine) 4 mg IVPUSH Q4H PRN PRN Reason: moderate pain Ondansetron HCl (Zofran) Confirm Administered Dose 4 mg .ROUTE .STK-MED ONE Stop: 07/09/16 07:16 Oxycodone HCl (Oxycontin) 10 mg PO ONARRIVE [facility] Stop: 07/09/16 12:01 Last Admin: 07/09/16 07:27 Dose: 10 mg Oxycodone HCl (Oxycodone) 5 - 10 mg PO Q4H PRN PRN Reason: Pain Last Admin: 07/11/16 16:26 Dose: 10 mg Oxycodone HCl (Oxycontin) 10 mg PO Q12HR [facility] Last Admin: 07/11/16 22:21 Dose: Not Given Phenylephrine HCl (Alexis-Synephrine) Confirm Administered Dose 10 mg .ROUTE .STK- MED ONE Stop: 07/09/16 08:53 Potassium Chloride (Klor-Con M20) 20 meq PO DAILY [facility] Propofol (Diprivan 20 Ml) Confirm Administered Dose 400 mg .ROUTE .STK-MED ONE Stop: 07/09/16 07:15 Propofol (Diprivan 20 Ml) Confirm Administered Dose 200 mg .ROUTE .STK-MED ONE Stop: 07/09/16 07:19 Succinylcholine Chloride (Succinylcholine In Ns Pf) Confirm Administered Dose 200 mg .ROUTE .STK-MED ONE Stop: 07/09/16 07:17 Tranexamic Acid (Cyklokapron) Confirm Administered Dose 4,000 mg .ROUTE .STK- MED ONE Stop: 07/09/16 07:12 Vancomycin HCl (Pharmacy To Dose - Vancomycin) 1 dose .XX ASDIRECTED [facility] *Q Meaningful Use (DIS) - VTE *Q VTE Criteria *Q: - Stroke *Q Stroke Criteria *Q: - AMI *Q AMI Criteria *Q:
--- NOTE | 2016-07-16 11:04 | PCM.SN ---
- Free Text/Narrative Note: Patient seen and examined. Agree with Ignacio PAC note. Patient progressing slowly with PT. Was able to walk to [place] this morning. Pain better controlled now. No other complaints. VSS, afeb Dressing dry/intact RLE. No calf TTP. AT/EHL/gastroc /5. Sensation intact. DP2+ . POD #7--s/p R TKA 1. discharge to [facility] today--continue PT and exercise program 2. ASA for DVT prophylaxis 3. f/u 2 weeks for staple removal and re-evaluation 4. patient agrees with plan for discharge
--- NOTE | 2016-07-16 11:25 | CR ---
EXAMINATION: Two-view chest (PA and Lateral views). HISTORY: Hypoxia. FINDINGS: The trachea is midline. The cardiomediastinal silhouette is within normal limits. Trace bibasilar at electasis/infiltrate. No pleural effusion or pneumothorax. Osseous structures appear unremarkable. IMPRESSION: Trace bibasilar atelectasis/infiltrate. No focal consolidation.
--- NOTE | 2016-07-16 13:22 | PCM.SN ---
- Free Text/Narrative Note: Discharge Summary Dressing was changed prior to discharge See discharge plan for complete list of discharge medications and instructions. Dictation #: [id number]
[2016-07-16 13:30] VITALS: BP 147/76
--- NOTE | 2016-07-17 04:38 | DISCH ---
DATE OF ADMISSION: 07/09/2016 DATE OF DISCHARGE: 07/16/2016 PRIMARY CARE PHYSICIAN: Brooke PCP ADMITTING DIAGNOSES: 1. Degenerative joint disease, right knee, tricompartmental. 2. Diabetes mellitus. 3. Hypertension. 4. Atrial fibrillation. DISCHARGE DIAGNOSES: 1. S/P right total knee arthroplasty. 2. Diabetes mellitus. 3. Hypertension. 4. Atrial fibrillation. 5. Chronic heart failure, exacerbation. 6. Acute kidney injury. 7. Constipation. 8. Myoclonic jerking. BRIEF HISTORY: The patient is a 75-year-old male, who was complaining of progressive bilateral knee pain. He has tried conservative treatment, which has not been helpful. He states that his right knee is most symptomatic. Due to his lack of response to conservative treatment, surgical intervention was considered at this time. Operation was a right total knee arthroplasty. HOSPITAL COURSE: The patient received two doses of Ancef postoperatively for 24 hours of antibiotic coverage. The patient was followed by the hospitalist and Physical Therapy during hospital stay. Pain was controlled via IV and PO pain medications. Patient experienced myoclonic jerking on POD #2. PO Oxycontin, Oxycodone and IV Dilaudid were stopped at this time. Pain was managed with PO Tylenol only. Upon evaluation on POD #3, urine in catheter was dark. UA was positive for blood and nitrates suggesting LOUISE. Urine culture was negative for growth. Patient was hypoxic and complaining of cough and chills. CXR showed pulmonary edema and HAP. He was treated with Lasix, antibiotics and supplemental oxygen via nasal cannula. Upon discharge, vital signs were stable and the patient was afebrile. Hemoglobin on the day of discharge was 10.2. Aspirin 325 mg PO BID was started on POD #1 for DVT prophylaxis. Pain is currently controlled with oral Tylenol only. The patient is tolerating oral intake. He is ambulating with wheeled walker. Patient feels comfortable with discharge to [place] today. DISCHARGE MEDICATIONS: 1. Aspirin 325 mg. 2. Colace 100 mg. 3. Crozet 10/325 mg. DISCHARGE INSTRUCTIONS: 1. Patient will follow up on July 19, 2016. This appointment was made for the patient. 2. The patient will attend outpatient physical therapy, 2-3 times per week for 4-6 weeks. 3. Polar Care to the right knee. 4. PATI hose to the right lower extremity, on in the morning, off in the evening. For complete medication reconciliation and discharge instructions, please refer to the patient's EHR. If the patient has questions or concerns prior to followup, he may call the clinic. CIRO GUERRERO /[id number] MTDD
--- NOTE | 2016-07-18 10:40 | ECHO ---
EXAM DATE: 07/09/16 PATIENT'S AGE: 75 The echocardiogram report can be seen in this patient's EMR (Electronic Medical Record) in the Reports section. ELSA
== END 2016-07-16 15:10 | DRG 469 ==
LOC: MW.MS 07-09 06:23
PROVIDERS: ADMIT Orthopaedic Surgery; ATTEND Orthopaedic Surgery
PROC: 0SRC0J9 Replacement of Right Knee Joint with Synthetic Substitute, Cemented, Open Approach (ICD-10-PCS; principal; 2016-07-09)
DX: M17.11 Unilateral primary osteoarthritis, right knee (principal); J18.9 Pneumonia, unspecified organism; S37.009A Unspecified injury of unspecified kidney, initial encounter; D62 Acute posthemorrhagic anemia; N39.0 Urinary tract infection, site not specified; Z68.41 Body mass index [BMI] 40.0-44.9, adult; M94.261 Chondromalacia, right knee; D72.829 Elevated white blood cell count, unspecified; R09.02 Hypoxemia; G25.3 Myoclonus; K59.00 Constipation, unspecified; R50.9 Fever, unspecified; E11.9 Type 2 diabetes mellitus without complications; I10 Essential (primary) hypertension; I48.91 Unspecified atrial fibrillation; I50.9 Heart failure, unspecified; E66.01 Morbid (severe) obesity due to excess calories; Z88.8 Allergy status to other drugs, medicaments and biological substances; Z79.899 Other long term (current) drug therapy; Z79.82 Long term (current) use of aspirin; Z87.891 Personal history of nicotine dependence
CPT/HCPCS: 01402; 36415; 51703; 71010; 71010-26; 71020; 71020-26; 73560-26-RT; 73560-RT; 80048; 80053; 81001; 82570; 82962; 83735; 84300; 85014; 85018; 85025; 86850; 86900; 86901; 87040; 87086; 88305; 88311; 93005; 93306; 97110-GP; 97161-GP; 97530-GP; A9270-GY; C1713; C1776; J0171; J0690; J0696; J0735; J1170; J1815-GY ×2; J1885; J1940; J1956; J2250; J2370; J2405; J2543; J2704; J2795; J3010; J3370; J7040; J7050; J7060; J7120

== ENCOUNTER → 2016-06-25 | Outpatient (CLI) | payer OTHER, MEDICARE ==
[2016-06-25 14:09] LABS: CHLORIDE,CL 106 mmol/L (98-110); SODIUM,NA 140 mmol/L (136-146)
== END | disposition home or self-care (01) ==
LOC: MW.CHIM 13:22
PROVIDERS: ATTEND Internal Medicine
DX: I10 Essential (primary) hypertension (principal); E11.9 Type 2 diabetes mellitus without complications; M17.11 Unilateral primary osteoarthritis, right knee; I48.91 Unspecified atrial fibrillation
CPT/HCPCS: 36415; 80053; 81001; 85025; 85610; 85730

== ENCOUNTER 2017-07-12 11:30 | Inpatient (IN) | payer OTHER, MEDICARE ==
[2017-07-12] MEDS ORDERED: Sodium Chloride 0.9% 2.5 ML Syringe FLUSH PRN (11:40)
[2017-07-12] MEDS ORDERED: Sodium Chloride 0.9% 10 ML Syringe FLUSH PRN (11:40)
[2017-07-12] MEDS ORDERED: Furosemide 40 MG/4 ML VIAL IVPUSH ONE ×2 (11:46→18:00)
--- NOTE | 2017-07-12 11:49 | EDM.PDOC ---
ED HPI GENERAL MEDICAL PROBLEM - General Chief Complaint: Chest Pain Stated Complaint: CHEST PAINS/SOB Time Seen by Provider: 07/12/17 11:39 Source of Information: Reports: Patient History Limitations: Reports: No Limitations - History of Present Illness INITIAL COMMENTS - FREE TEXT/NARRATIVE: History of present illness: []Patient is a noncompliant the patient with history of diabetes, CHF and hypertension who presented to the [place] clinic this morning with shortness of breath, general weakness and found to be hypoxic and tachycardic with worsening leg edema. He was out of his meds for 3-4 days but did restart them 3 days ago. Review of systems: As per history of present illness and below otherwise all systems reviewed and negative. Past medical history: As per history of present illness and as reviewed below otherwise noncontributory. Surgical history: As per history of present illness and as reviewed below otherwise noncontributory. Social history: No reported history of drug or alcohol abuse. Family history: As per history of present illness and as reviewed below otherwise noncontributory. Physical exam: General: Well developed, well nourished in NAD HEENT: Atraumatic, normocephalic, pupils reactive, negative for conjunctival pallor or scleral icterus, mucous membranes moist, throat clear, neck supple, nontender, trachea midline. Lungs: Bilateral rales to auscultation, breath sounds equal bilaterally, chest nontender. No respiratory distress Heart: S1S2, regular, no murmurs Abdomen: Soft, nondistended, nontender. Negative for masses or hepatosplenomegaly. Negative for costovertebral tenderness. Pelvis: Stable nontender. Genitourinary: Deferred. Rectal: Deferred. Extremities: Bilaterally edematous 2+ edema consistent with venous stasis changes Neuro: Awake, alert, oriented. Cranial nerves II through XII unremarkable. Cerebellum unremarkable. Motor and sensory unremarkable throughout. Exam nonfocal. Diagnostics: []Chest x-ray negative, CBC normal chemistry shows an elevated creatinine 1.8 BUN of 15, troponin negative BNP elevated at 372 Therapeutics: []Lasix Impression: []CHF exacerbation, medication noncompliance Plan: []Admit for diuresis to the hospital service Definitive disposition and diagnosis as appropriate pending reevaluation and review of above. bilateral legs Pain Score (Numeric/FACES): 7 - Related Data Allergies Allergy/AdvReac Type Severity Reaction Status Date / Time morphine Allergy Itching Verified 07/12/17 11:52 Home Meds: Home Meds Losartan Potassium 100 mg PO DAILY 07/05/16 [History] Aspirin [Ecotrin] 325 mg PO Q24H 07/16/16 [History] Furosemide [Lasix] 40 mg PO BID 07/12/17 [History] Insulin Detemir [Levemir Flextouch] 40 unit SUBCUT BEDTIME 07/12/17 [History] Oxybutynin [Oxybutynin ER] 5 mg PO DAILY 07/12/17 [History] Spironolactone [Aldactone] 25 mg PO DAILY 07/12/17 [History] metFORMIN HCl [Metformin HCl ER] 1,000 mg PO BIDMEALS 07/12/17 [History] Past Medical History HEENT History: Reports: Hard of Hearing, Impaired Vision Other HEENT History: wears glasses, top denture, annalisa hearing aids Cardiovascular History: Reports: Afib, High Cholesterol, Hypertension Gastrointestinal History: Reports: Other (See Below) Other Gastrointestinal History: occasional heartburn Genitourinary History: Reports: Renal Calculus Other Genitourinary History: hx kidney stones Musculoskeletal History: Reports: Arthritis Endocrine/Metabolic History: Reports: Diabetes, Type II, Obesity/BMI 30+ - Past Surgical History Musculoskeletal Surgical History: Reports: Arthroscopic Knee Social & Family History - Caffeine Use Caffeine Use: Reports: Coffee ED ROS GENERAL - Review of Systems Review Of Systems: See Below (See history of present illness) ED EXAM, GENERAL - Physical Exam Exam: See Below (See history of present illness) Course - Vital Signs Last Recorded V/S: Last Vital Signs Temp 98.4 F 07/12/17 11:52 Pulse 78 07/12/17 13:00 Resp 24 H 07/12/17 13:00 BP 140/70 07/12/17 13:00 Pulse Ox 94 L 07/12/17 13:00 - Orders/Labs/Meds Orders: Active Orders 24 hr Category Date Time Status Patient Status [ADT] Stat ADT 07/12/17 12:47 Active EKG Documentation Completion [RC] STAT Care 07/12/17 11:40 Active Oxygen Therapy, ED [RC] ASDIRECTED Care 07/12/17 11:40 Active Sodium Chloride 0.9% [Saline Flush] Med 07/12/17 11:40 Active 10 ml FLUSH ASDIRECTED PRN Sodium Chloride 0.9% [Saline Flush] Med 07/12/17 11:40 Active 2.5 ml FLUSH ASDIRECTED PRN Saline Lock Insert [OM.PC] Stat Oth 07/12/17 11:40 Ordered Medication Orders Acetaminophen (Tylenol) 650 mg PO Q4H PRN PRN Reason: Pain (mild 1-3) Furosemide (Lasix) 40 mg IVPUSH BIDDIURETIC BLANCA Furosemide (Lasix) 40 mg IVPUSH NOW ONE Stop: 07/12/17 18:01 Ondansetron HCl (Zofran) 4 mg IVPUSH Q4H PRN PRN Reason: Nausea Sodium Chloride (Saline Flush) 10 ml FLUSH ASDIRECTED PRN PRN Reason: Keep Vein Open Sodium Chloride (Saline Flush) 2.5 ml FLUSH ASDIRECTED PRN PRN Reason: Keep Vein Open Labs: Laboratory Tests 07/12/17 07/12/17 07/12/17 Range/Units 11:57 11:57 11:57 WBC 8.84 (4.0-11.0) K/uL RBC 5.22 (4.50-5.90) M/uL Hgb 11.7 L (13.0-17.0) g/dL Hct 41.2 (38.0-50.0) % MCV 78.9 L (80.0-98.0) fL MCH 22.4 L (27.0-32.0) pg MCHC 28.4 L (31.0-37.0) g/dL RDW Std Deviation 53.1 (28.0-62.0) fl RDW Coeff of [place] 19 H (11.0-15.0) % Plt Count 224 (150-400) K/uL MPV 9.80 (7.40-12.00) fL Neut % (Auto) 70.7 (48.0-80.0) % Lymph % (Auto) 16.1 (16.0-40.0) % [place] % (Auto) 9.4 (0.0-15.0) % Eos % (Auto) 3.5 (0.0-7.0) % Baso % (Auto) 0.3 (0.0-1.5) % Neut # (Auto) 6.3 H (1.4-5.7) K/uL Lymph # (Auto) 1.4 (0.6-2.4) K/uL [place] # (Auto) 0.8 (0.0-0.8) K/uL Eos # (Auto) 0.3 (0.0-0.7) K/uL Baso # (Auto) 0.0 (0.0-0.1) K/uL Nucleated RBC % 0.0 /100WBC Nucleated RBCs # 0 K/uL Sodium 144 (136-148) mmol/L Potassium 4.4 (3.5-5.1) mmol/L Chloride 107 (98-107) mmol/L Carbon Dioxide 32.6 H (21.0-32.0) mmol/L BUN 15 (7.0-18.0) mg/dL Creatinine 1.8 H (0.8-1.3) mg/dL Est Cr Clr Drug Dosing 34.37 mL/min Estimated GFR (MDRD) 36.8 ml/min Glucose 145 H (74-106) mg/dL Calcium 8.5 (8.5-10.1) mg/dL Total Bilirubin 0.6 (0.2-1.0) mg/dL AST 16 (15-37) IU/L ALT 13 L (14-63) IU/L Alkaline Phosphatase 138 H (46-116) U/L Troponin I 0.052 (0.000-0.056) ng/mL B-Natriuretic Peptide 374 H (<100) PG/ML Total Protein 6.1 L (6.4-8.2) g/dL Albumin 2.1 L (3.4-5.0) g/dL Globulin 4.0 H (2.0-3.5) g/dL Albumin/Globulin Ratio 0.5 L (1.3-2.8) Meds: Medications Generic Name Dose Route Start Last Admin Trade Name Freq PRN Reason Stop Dose Admin Acetaminophen 650 mg 07/12/17 13:02 Tylenol PO Q4H PRN Pain (mild 1-3) Furosemide 40 mg 07/13/17 09:00 Lasix IVPUSH BIDDIURETIC BLANCA Furosemide 40 mg 07/12/17 18:00 Lasix IVPUSH 07/12/17 18:01 NOW ONE Ondansetron HCl 4 mg 07/12/17 13:02 Zofran IVPUSH Q4H PRN Nausea Sodium Chloride 10 ml 07/12/17 11:40 Saline Flush FLUSH ASDIRECTED PRN Keep Vein Open Sodium Chloride 2.5 ml 07/12/17 11:40 Saline Flush FLUSH ASDIRECTED PRN Keep Vein Open Discontinued Medications Generic Name Dose Route Start Last Admin Trade Name Nora PRN Reason Stop Dose Admin Furosemide 40 mg 07/12/17 11:46 07/12/17 12:02 Lasix IVPUSH 07/12/17 11:47 40 mg NOW ONE Administration Departure - Departure Time of Disposition: 13:33 Disposition: Admitted As Inpatient 65 Condition: Fair Clinical Impression: Noncompliance with medication regimen CHF exacerbation Qualifiers: Heart failure type: unspecified Qualified Code(s): I50.9 - Heart failure, unspecified - Discharge Information - My Orders Last 24 Hours: My Active Orders 07/12/17 11:40 EKG Documentation Completion [RC] STAT Oxygen Therapy, ED [RC] ASDIRECTED Sodium Chloride 0.9% [Saline Flush] 10 ml FLUSH ASDIRECTED PRN Sodium Chloride 0.9% [Saline Flush] 2.5 ml FLUSH ASDIRECTED PRN Saline Lock Insert [OM.PC] Stat 07/12/17 12:47 Patient Status [ADT] Stat - Assessment/Plan Last 24 Hours: My Active Orders 07/12/17 11:40 EKG Documentation Completion [RC] STAT Oxygen Therapy, ED [RC] ASDIRECTED Sodium Chloride 0.9% [Saline Flush] 10 ml FLUSH ASDIRECTED PRN Sodium Chloride 0.9% [Saline Flush] 2.5 ml FLUSH ASDIRECTED PRN Saline Lock Insert [OM.PC] Stat 07/12/17 12:47 Patient Status [ADT] Stat
[2017-07-12] MEDS ORDERED: Ondansetron 4 MG/2 ML SDV IVPUSH PRN (13:02)
[2017-07-12] MEDS ORDERED: Acetaminophen 325 MG Tab PO PRN (13:02)
--- NOTE | 2017-07-12 13:06 | CR ---
EXAMINATION: Portable chest radiograph. HISTORY: Shortness of breath. FINDINGS: The trachea is midline. The cardiomediastinal silhouette is within normal limits. No pulmonary infilt rates, effusions or pneumothorax. The transverse diameter of the thoracic trachea appears narrowed. Osseous structures appear unremarkable. IMPRESSION: No acute cardiopulmonary process.
--- NOTE | 2017-07-12 13:56 | PCM.HP ---
H&P History of Present Illness - General Date of Service: 07/12/17 Admit Problem/Dx: Admission Diagnosis/Problem Admission Diagnosis/Problem CHF, Congestive heart failure Source of Information: Patient History Limitations: Reports: No Limitations - History of Present Illness Initial Comments - Free Text/Narative: This 76 year old male with pmh of obesity, HTN, paroxysmal afib, peripheral edema, DM type 2 and hx R TKA in 2017 presented initially to scheduled appointment at the [place] [facility] today and was noted to be more dyspneic and hypoxic , sating low 80s on room air. He has not taken his medications for nearly 4 days. He was directed to the ED for further evaluation and treatment. He reports the shortness of breath has been going on for some time, no exactly sure when it started. Reports he normally can not lay flat and becomes short of breath if he does. He also has stable lower leg peripheral edema. He reports no chest pain, but it hurts intermittently when he coughs. No chest pain with activity. He denies fevers, chills, abdominal pain. Reports loose stools most days from Metformin. No urinary symptoms. No headaches or blurred vision and no focal neurologic deficits. In the ED no leukocytosis noted, hgb 11.7, Plat 224, Na 144, K+ 4.4 Bicarb 32.6 , BUN 15, Cr 1.8, which is slightly elevated from baseline. Glucose 145. CXR ngative. EKG SR no ischemic changes. Troponin negative. BNP 374. He was noted to be 83% on RA with some tachypnea. Other vital signs stable. He was given Lasix 40mg IV in the ED. He will be admitted for dyspnea and possible CHF exacerbation. PCP, [facility]. bilateral legs Pain Score (Numeric/FACES): 7 - Related Data Allergies/Adverse Reactions: Allergies Allergy/AdvReac Type Severity Reaction Status Date / Time morphine Allergy Itching Verified 07/12/17 11:52 Home Medications: Home Meds Losartan Potassium 100 mg PO DAILY 07/05/16 [History] Aspirin [Ecotrin] 325 mg PO Q24H 07/16/16 [History] Furosemide [Lasix] 40 mg PO BID 07/12/17 [History] Insulin Detemir [Levemir Flextouch] 40 unit SUBCUT BEDTIME 07/12/17 [History] Oxybutynin [Oxybutynin ER] 5 mg PO DAILY 07/12/17 [History] Spironolactone [Aldactone] 25 mg PO DAILY 07/12/17 [History] metFORMIN HCl [Metformin HCl ER] 1,000 mg PO BIDMEALS 07/12/17 [History] Past Medical History HEENT History: Reports: Hard of Hearing, Impaired Vision Other HEENT History: wears glasses, top denture, annalisa hearing aids Cardiovascular History: Reports: Afib, High Cholesterol, Hypertension, SOB on Exertion. Denies: Blood Clots/VTE/DVT Respiratory History: Reports: SOB. Denies: Sleep Apnea (but snores a lot at night) Gastrointestinal History: Reports: Other (See Below) Other Gastrointestinal History: occasional heartburn Genitourinary History: Reports: Renal Calculus Other Genitourinary History: hx kidney stones Musculoskeletal History: Reports: Arthritis Neurological History: Reports: None. Denies: CVA, TIA Psychiatric History: Reports: None Endocrine/Metabolic History: Reports: Diabetes, Type II, Obesity/BMI 30+ Hematologic History: Reports: None Immunologic History: Reports: None Oncologic (Cancer) History: Reports: None Dermatologic History: Reports: None - Past Surgical History Musculoskeletal Surgical History: Reports: Arthroscopic Knee, Knee Replacement ( July 2016) Social & Family History - Family History Family Medical History: Noncontributory - Tobacco Use Smoking Status *Q: Former Smoker Second Hand Smoke Exposure: No - Caffeine Use Caffeine Use: Reports: Coffee - Alcohol Use Alcohol Use History: No - Recreational Drug Use Recreational Drug Use: No - Living Situation & Occupation Living situation: Reports: Alone Occupation: Retired H&P Review of Systems - Review of Systems: Review Of Systems: See Below General: Reports: No Symptoms. Denies: Fever, Chills, Malaise, Weakness HEENT: Reports: No Symptoms. Denies: Headaches, Sinus Congestion, Sore Throat Pulmonary: Reports: Shortness of Breath, Cough, Sputum (clear to white) Cardiovascular: Reports: Dyspnea on Exertion, Edema (peripheral lower legs). Denies: Chest Pain Gastrointestinal: Reports: No Symptoms. Denies: Abdominal Pain, Black Stool, Bloody Stool, Nausea, Vomiting Genitourinary: Reports: No Symptoms. Denies: Dysuria, Frequency, Burning Musculoskeletal: Reports: Joint Pain (R knee pain, reports he fell earlier this week and landed on his knee. Did not hit his head. ) Skin: Reports: No Symptoms Psychiatric: Reports: No Symptoms Neurological: Reports: No Symptoms Hematologic/Lymphatic: Reports: No Symptoms Immunologic: Reports: No Symptoms Exam - Exam Exam: See Below - Vital Signs Vital Signs: Last Vital Signs Temp 97.2 F 07/12/17 13:20 Pulse 92 07/12/17 13:20 Resp 24 H 07/12/17 13:20 BP 142/83 H 07/12/17 13:20 Pulse Ox 97 07/12/17 13:20 Weight: 154 kg - Exam Quality Assessment: Supplemental Oxygen, DVT Prophylaxis General: Alert, Oriented, Cooperative HEENT: Conjunctiva Clear, Posterior Pharynx Clear Neck: Supple, Full Range of Motion. No: JVD (large neck, unable to assess.) Lungs: Decreased Breath Sounds (bibasilar), Rhonchi. No: Normal Respiratory Effort (dyspnea noted with exertion and speech) Cardiovascular: Regular Rate, Regular Rhythm, Normal S1, Normal S2. No: Systolic Murmur GI/Abdominal Exam: Normal Bowel Sounds, Soft, Non-Tender, No Organomegaly, No Distention, No Abnormal Bruit, No Mass, Pelvis Stable, Other (obese abdomen makes assessment difficult) Extremities: Normal Inspection, Normal Range of Motion, Non-Tender, Normal Capillary Refill, Pedal Edema (+2 pitting edema to lower legs, patient reports they are about at baseline.), Joint Swelling (slight increase in swelling to R knee, tenderness to palpation of patella) Skin: Warm, Dry, Other (abrasions scattered to lower legs, scant weeping with these. PVD skin changes noted. Fungal infection noted bilateral to toes and forefeet. ) Neuro Extensive - Mental Status: Alert, Oriented x3, Normal Mood/Affect, Normal Cognition Neuro Extensive - Motor, Sensory, Reflexes: CN II-XII Intact, Normal Gait Psychiatric: Alert, Normal Affect, Normal Mood - Patient Data Lab Results Last 24 hrs: Laboratory Results - last 24 hr 07/12/17 07/12/17 07/12/17 Range/Units 11:57 11:57 11:57 WBC 8.84 (4.0-11.0) K/uL RBC 5.22 (4.50-5.90) M/uL Hgb 11.7 L (13.0-17.0) g/dL Hct 41.2 (38.0-50.0) % MCV 78.9 L (80.0-98.0) fL MCH 22.4 L (27.0-32.0) pg MCHC 28.4 L (31.0-37.0) g/dL RDW Std Deviation 53.1 (28.0-62.0) fl RDW Coeff of [place] 19 H (11.0-15.0) % Plt Count 224 (150-400) K/uL MPV 9.80 (7.40-12.00) fL Neut % (Auto) 70.7 (48.0-80.0) % Lymph % (Auto) 16.1 (16.0-40.0) % [place] % (Auto) 9.4 (0.0-15.0) % Eos % (Auto) 3.5 (0.0-7.0) % Baso % (Auto) 0.3 (0.0-1.5) % Neut # (Auto) 6.3 H (1.4-5.7) K/uL Lymph # (Auto) 1.4 (0.6-2.4) K/uL [place] # (Auto) 0.8 (0.0-0.8) K/uL Eos # (Auto) 0.3 (0.0-0.7) K/uL Baso # (Auto) 0.0 (0.0-0.1) K/uL Nucleated RBC % 0.0 /100WBC Nucleated RBCs # 0 K/uL Sodium 144 (136-148) mmol/L Potassium 4.4 (3.5-5.1) mmol/L Chloride 107 (98-107) mmol/L Carbon Dioxide 32.6 H (21.0-32.0) mmol/L BUN 15 (7.0-18.0) mg/dL Creatinine 1.8 H (0.8-1.3) mg/dL Est Cr Clr Drug Dosing 34.37 mL/min Estimated GFR (MDRD) 36.8 ml/min Glucose 145 H (74-106) mg/dL Calcium 8.5 (8.5-10.1) mg/dL Total Bilirubin 0.6 (0.2-1.0) mg/dL AST 16 (15-37) IU/L ALT 13 L (14-63) IU/L Alkaline Phosphatase 138 H (46-116) U/L Troponin I 0.052 (0.000-0.056) ng/mL B-Natriuretic Peptide 374 H (<100) PG/ML Total Protein 6.1 L (6.4-8.2) g/dL Albumin 2.1 L (3.4-5.0) g/dL Globulin 4.0 H (2.0-3.5) g/dL Albumin/Globulin Ratio 0.5 L (1.3-2.8) Result Diagrams: 07/12/17 11:57 07/12/17 11:57 EKG INTERPRETATION EKG Date: 07/12/17 Rhythm: NSR Rate (Beats/Min): 80 P-Wave: Present QRS: Normal ST-T: Normal QT: Normal *Q Meaningful Use (ADM) - VTE Risk Assess *Q Each Risk Factor Represents 1 Point: Swollen Legs, Current, Obesity ( BMI > 25 kg/m2), Congestive heart failure (CHF) Total Score 1 Point Risk Factors: 3 Each Risk Factor Represents 2 Points: None Total Score 2 Point Risk Factors: 0 Each Risk Factor Represents 3 Points: Age 75 Years or Greater Total Score 3 Point Risk Factors: 3 Each Risk Factor Represents 5 Points: None Total Score 5 Point Risk Factors: 0 Venous Thromboembolism Risk Factor Score *Q: 6 - Problem List (1) CHF exacerbation SNOMED Code(s): 82154647 ICD Code: I50.9 - HEART FAILURE, UNSPECIFIED Status: Chronic Current Visit: Yes Qualifiers: Heart failure type: unspecified Qualified Code(s): I50.9 - Heart failure, unspecified (2) Dyspnea SNOMED Code(s): 033689373 ICD Code: R06.00 - DYSPNEA, UNSPECIFIED Status: Acute Current Visit: Yes (3) Hypoxia SNOMED Code(s): 578671924 ICD Code: R09.02 - HYPOXEMIA Status: Acute Current Visit: Yes (4) A-fib SNOMED Code(s): 63426276 ICD Code: I48.91 - UNSPECIFIED ATRIAL FIBRILLATION Status: Chronic Current Visit: No Qualifiers: Atrial fibrillation type: paroxysmal Qualified Code(s): I48.0 - Paroxysmal atrial fibrillation (5) DM type 2 (diabetes mellitus, type 2) SNOMED Code(s): 14103099 ICD Code: E11.9 - TYPE 2 DIABETES MELLITUS WITHOUT COMPLICATIONS Status: Chronic Current Visit: No Qualifiers: 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 Diabetes mellitus complication status: without complication Qualified Code(s): E11.9 - Type 2 diabetes mellitus without complications; Z79.4 - long term care administrator (current) use of insulin (6) HTN (hypertension) SNOMED Code(s): 44842518 ICD Code: I10 - ESSENTIAL (PRIMARY) HYPERTENSION Status: Chronic Current Visit: No Qualifiers: Hypertension type: essential hypertension Qualified Code(s): I10 - Essential (primary) hypertension (7) Morbid obesity with BMI of 50.0-59.9, adult SNOMED Code(s): 725777023 ICD Code: E66.01 - MORBID (SEVERE) OBESITY DUE TO EXCESS CALORIES; Z68.43 - BODY MASS INDEX (BMI) 50-59.9 , ADULT Status: Acute Current Visit: Yes Problem List Initiated/Reviewed/Updated: Yes Orders Last 24hrs: Active Orders 24 hr Category Date Time Status Patient Status [ADT] Stat ADT 07/12/17 12:47 Active EKG Documentation Completion [RC] STAT Care 07/12/17 11:40 Active Height and Weight [RC] DAILY Care 07/12/17 13:02 Active Oxygen Therapy [RC] PRN Care 07/12/17 13:02 Active Oxygen Therapy, ED [RC] ASDIRECTED Care 07/12/17 11:40 Active Telemetry Monitoring [Cardiac Monitoring] [RC] . Care 07/12/17 13:23 Active DIRECTED Up ad Sweta [RC] ASDIRECTED Care 07/12/17 13:02 Active VTE/DVT Education [RC] PER UNIT ROUTINE Care 07/12/17 13:02 Active Vital Signs [RC] Q4H Care 07/12/17 13:02 Active 2 Gram Sodium Diet [DIET] Diet 07/12/17 Lunch Active BASIC METABOLIC PANEL,BMP [CHEM] AM Lab 07/13/17 05:11 Ordered BASIC METABOLIC PANEL,BMP [CHEM] AM Lab 07/14/17 05:11 Ordered BASIC METABOLIC PANEL,BMP [CHEM] AM Lab 07/15/17 05:11 Ordered CBC WITH AUTO DIFF [HEME] AM Lab 07/13/17 05:11 Ordered CBC WITH AUTO DIFF [HEME] AM Lab 07/14/17 05:11 Ordered CBC WITH AUTO DIFF [HEME] AM Lab 07/15/17 05:11 Ordered MAGNESIUM [CHEM] AM Lab 07/13/17 05:11 Ordered MAGNESIUM [CHEM] AM Lab 07/14/17 05:11 Ordered MAGNESIUM [CHEM] AM Lab 07/15/17 05:11 Ordered Acetaminophen [Tylenol] Med 07/12/17 13:02 Active 650 mg PO Q4H PRN Furosemide [Lasix] Med 07/13/17 09:00 Active 40 mg IVPUSH BIDDIURETIC Furosemide [Lasix] Med 07/12/17 18:00 Once 40 mg IVPUSH NOW ONE Ondansetron [Zofran] Med 07/12/17 13:02 Active 4 mg IVPUSH Q4H PRN Sodium Chloride 0.9% [Saline Flush] Med 07/12/17 11:40 Active 10 ml FLUSH ASDIRECTED PRN Sodium Chloride 0.9% [Saline Flush] Med 07/12/17 11:40 Active 2.5 ml FLUSH ASDIRECTED PRN Saline Lock Insert [OM.PC] Stat Oth 07/12/17 11:40 Ordered Medication Orders Acetaminophen (Tylenol) 650 mg PO Q4H PRN PRN Reason: Pain (mild 1-3) Furosemide (Lasix) 40 mg IVPUSH BIDDIURETIC BLANCA Furosemide (Lasix) 40 mg IVPUSH NOW ONE Stop: 07/12/17 18:01 Ondansetron HCl (Zofran) 4 mg IVPUSH Q4H PRN PRN Reason: Nausea Sodium Chloride (Saline Flush) 10 ml FLUSH ASDIRECTED PRN PRN Reason: Keep Vein Open Sodium Chloride (Saline Flush) 2.5 ml FLUSH ASDIRECTED PRN PRN Reason: Keep Vein Open Assessment/Plan Comment:: This 76 year old male admitted with suspected CHF exacerbation with dyspnea and hypoxia 1. CHF exacerbation: Last ECHO was July 2016, LV EF 60-65% with mildly dilated R atrium, mild MR, mild to moderate TR and RV systolic pressures moderate to severely elevated. He denies ever being evaluated for sleep apnea. This is recommended at discharge. Will repeat ECHO this admission. Will diurese with Lasix 40 mg IV BID. Strict I/O, daily weights. He is up nearly 13 lbs since last admission. Low Na diet with 2 L FR. 2. HTN: Continue Losartan and Spironolactone. Monitor 3. Dm type 2: Continue Levemir at bedtime. hold Metformin during stay. Novolog SSI with meals. 4. Afib: History unknown, not using anticoagulation. Currently SR on telemetry. 5. R knee pain: Since falling earlier this week. Will obtain xrays to evaluate. VTe prophylaxis: Heparin Dispo: 2-3 days pending improvement.
[2017-07-12] MEDS: Heparin Sodium 5,000 Units/ML Vial SUBCUT SCH (14:49)
[2017-07-12] MEDS: Aspirin 325 MG Tab.EC PO SCH (14:50)
[2017-07-12] MEDS: Insulin Aspart 100 Units/ML 3 ML Pen SUBCUT SCH (17:04)
[2017-07-12] MEDS: Nystatin Topical Powder 15 GM Bottle TOP SCH (17:23)
[2017-07-12] MEDS: Insulin Detemir 100 Units/ML 3 ML Pen SUBCUT SCH (21:29)
[2017-07-13] MEDS: Nystatin Topical Powder 15 GM Bottle TOP SCH ×4 (00:38→17:59)
[2017-07-13] MEDS: Heparin Sodium 5,000 Units/ML Vial SUBCUT SCH ×2 (01:31→13:57)
[2017-07-13] MEDS: Insulin Aspart 100 Units/ML 3 ML Pen SUBCUT SCH ×3 (06:41→19:47)
[2017-07-13] MEDS: Spironolactone 25 MG Tab PO SCH (08:35)
[2017-07-13] MEDS: Losartan 50 MG Tab PO SCH (08:35)
[2017-07-13] MEDS: Furosemide 40 MG/4 ML VIAL IVPUSH SCH ×2 (08:36→13:57)
[2017-07-13] MEDS: Aspirin 325 MG Tab.EC PO SCH (08:36)
[2017-07-13] MEDS: OXYBUTYNIN 5 MG PO SCH (08:41)
--- NOTE | 2017-07-13 12:19 | PCM.PN ---
- General Info Date of Service: 07/13/17 Admission Dx/Problem (Free Text): Admission Diagnosis/Problem Admission Diagnosis/Problem CHF, Congestive heart failure Subjective Update: No overnight events. Patient still complaining of swelling, fatigue and sob Functional Status: Reports: Pain Controlled, Tolerating Diet, Urinating. Denies : Ambulating - Review of Systems General: Reports: Fatigue HEENT: Reports: No Symptoms Pulmonary: Reports: Shortness of Breath Cardiovascular: Reports: Edema Gastrointestinal: Reports: No Symptoms Genitourinary: Reports: No Symptoms Musculoskeletal: Reports: No Symptoms Skin: Reports: No Symptoms Neurological: Reports: No Symptoms Psychiatric: Reports: No Symptoms - Patient Data Vitals - Most Recent: Last Vital Signs Temp 36.8 C 07/13/17 08:00 Pulse 90 07/13/17 08:00 Resp 30 H 07/13/17 11:50 BP 132/74 07/13/17 08:35 Pulse Ox 90 L 07/13/17 11:50 Weight - Most Recent: 154.5 kg I&O - Last 24 Hours: Intake & Output 07/12/17 07/13/17 07/13/17 22:59 06:59 14:59 Intake Total 240 644 Output Total 1390 Balance 240 -746 Lab Results Last 24 Hours: Laboratory Results - last 24 hr 07/12/17 07/12/17 07/12/17 Range/Units 11:57 11:57 11:57 WBC 8.84 (4.0-11.0) K/uL RBC 5.22 (4.50-5.90) M/uL Hgb 11.7 L (13.0-17.0) g/dL Hct 41.2 (38.0-50.0) % MCV 78.9 L (80.0-98.0) fL MCH 22.4 L (27.0-32.0) pg MCHC 28.4 L (31.0-37.0) g/dL RDW Std Deviation 53.1 (28.0-62.0) fl RDW Coeff of [place] 19 H (11.0-15.0) % Plt Count 224 (150-400) K/uL MPV 9.80 (7.40-12.00) fL Neut % (Auto) 70.7 (48.0-80.0) % Lymph % (Auto) 16.1 (16.0-40.0) % [place] % (Auto) 9.4 (0.0-15.0) % Eos % (Auto) 3.5 (0.0-7.0) % Baso % (Auto) 0.3 (0.0-1.5) % Neut # (Auto) 6.3 H (1.4-5.7) K/uL Lymph # (Auto) 1.4 (0.6-2.4) K/uL [place] # (Auto) 0.8 (0.0-0.8) K/uL Eos # (Auto) 0.3 (0.0-0.7) K/uL Baso # (Auto) 0.0 (0.0-0.1) K/uL Nucleated RBC % 0.0 /100WBC Nucleated RBCs # 0 K/uL Sodium 144 (136-148) mmol/L Potassium 4.4 (3.5-5.1) mmol/L Chloride 107 (98-107) mmol/L Carbon Dioxide 32.6 H (21.0-32.0) mmol/L BUN 15 (7.0-18.0) mg/dL Creatinine 1.8 H (0.8-1.3) mg/dL Est Cr Clr Drug Dosing 34.37 mL/min Estimated GFR (MDRD) 36.8 ml/min Glucose 145 H (74-106) mg/dL POC Glucose (60-110) mg/dL Calcium 8.5 (8.5-10.1) mg/dL Magnesium (1.5-2.0) mg/dL Total Bilirubin 0.6 (0.2-1.0) mg/dL AST 16 (15-37) IU/L ALT 13 L (14-63) IU/L Alkaline Phosphatase 138 H (46-116) U/L Troponin I 0.052 (0.000-0.056) ng/mL B-Natriuretic Peptide 374 H (<100) PG/ML Total Protein 6.1 L (6.4-8.2) g/dL Albumin 2.1 L (3.4-5.0) g/dL Globulin 4.0 H (2.0-3.5) g/dL Albumin/Globulin Ratio 0.5 L (1.3-2.8) 0507/12/17 07/13/17 Range/Units 16:42 21:27 06:15 WBC 9.26 (4.0-11.0) K/uL RBC 5.29 (4.50-5.90) M/uL Hgb 11.7 L (13.0-17.0) g/dL Hct 42.4 (38.0-50.0) % MCV 80.2 (80.0-98.0) fL MCH 22.1 L (27.0-32.0) pg MCHC 27.6 L (31.0-37.0) g/dL RDW Std Deviation 55.0 (28.0-62.0) fl RDW Coeff of [place] 19 H (11.0-15.0) % Plt Count 226 (150-400) K/uL MPV 9.90 (7.40-12.00) fL Neut % (Auto) 63.8 (48.0-80.0) % Lymph % (Auto) 19.3 (16.0-40.0) % [place] % (Auto) 11.7 (0.0-15.0) % Eos % (Auto) 4.9 (0.0-7.0) % Baso % (Auto) 0.3 (0.0-1.5) % Neut # (Auto) 5.9 H (1.4-5.7) K/uL Lymph # (Auto) 1.8 (0.6-2.4) K/uL [place] # (Auto) 1.1 H (0.0-0.8) K/uL Eos # (Auto) 0.5 (0.0-0.7) K/uL Baso # (Auto) 0.0 (0.0-0.1) K/uL Nucleated RBC % 0.0 /100WBC Nucleated RBCs # 0 K/uL Sodium (136-148) mmol/L Potassium (3.5-5.1) mmol/L Chloride (98-107) mmol/L Carbon Dioxide (21.0-32.0) mmol/L BUN (7.0-18.0) mg/dL Creatinine (0.8-1.3) mg/dL Est Cr Clr Drug Dosing mL/min Estimated GFR (MDRD) ml/min Glucose (74-106) mg/dL POC Glucose 144 H 186 H (60-110) mg/dL Calcium (8.5-10.1) mg/dL Magnesium (1.5-2.0) mg/dL Total Bilirubin (0.2-1.0) mg/dL AST (15-37) IU/L ALT (14-63) IU/L Alkaline Phosphatase (46-116) U/L Troponin I (0.000-0.056) ng/mL B-Natriuretic Peptide (<100) PG/ML Total Protein (6.4-8.2) g/dL Albumin (3.4-5.0) g/dL Globulin (2.0-3.5) g/dL Albumin/Globulin Ratio (1.3-2.8) 07/13/17 07/13/17 07/13/17 Range/Units 06:15 06:15 11:32 WBC (4.0-11.0) K/uL RBC (4.50-5.90) M/uL Hgb (13.0-17.0) g/dL Hct (38.0-50.0) % MCV (80.0-98.0) fL MCH (27.0-32.0) pg MCHC (31.0-37.0) g/dL RDW Std Deviation (28.0-62.0) fl RDW Coeff of [place] (11.0-15.0) % Plt Count (150-400) K/uL MPV (7.40-12.00) fL Neut % (Auto) (48.0-80.0) % Lymph % (Auto) (16.0-40.0) % [place] % (Auto) (0.0-15.0) % Eos % (Auto) (0.0-7.0) % Baso % (Auto) (0.0-1.5) % Neut # (Auto) (1.4-5.7) K/uL Lymph # (Auto) (0.6-2.4) K/uL [place] # (Auto) (0.0-0.8) K/uL Eos # (Auto) (0.0-0.7) K/uL Baso # (Auto) (0.0-0.1) K/uL Nucleated RBC % /100WBC Nucleated RBCs # K/uL Sodium 144 (136-148) mmol/L Potassium 4.4 (3.5-5.1) mmol/L Chloride 107 (98-107) mmol/L Carbon Dioxide 34.9 H (21.0-32.0) mmol/L BUN 18 (7.0-18.0) mg/dL Creatinine 1.9 H (0.8-1.3) mg/dL Est Cr Clr Drug Dosing 32.56 mL/min Estimated GFR (MDRD) 34.5 ml/min Glucose 137 H (74-106) mg/dL POC Glucose 118 H 137 H (60-110) mg/dL Calcium 8.6 (8.5-10.1) mg/dL Magnesium 2.0 (1.5-2.0) mg/dL Total Bilirubin (0.2-1.0) mg/dL AST (15-37) IU/L ALT (14-63) IU/L Alkaline Phosphatase (46-116) U/L Troponin I (0.000-0.056) ng/mL B-Natriuretic Peptide (<100) PG/ML Total Protein (6.4-8.2) g/dL Albumin (3.4-5.0) g/dL Globulin (2.0-3.5) g/dL Albumin/Globulin Ratio (1.3-2.8) Med Orders - Current: Current Medications Acetaminophen (Tylenol) 650 mg PO Q4H PRN PRN Reason: Pain (mild 1-3) Aspirin (Ecotrin) 325 mg PO DAILY [facility] Last Admin: 07/13/17 08:36 Dose: 325 mg Furosemide (Lasix) 40 mg IVPUSH BIDDIURETIC [facility] Last Admin: 07/13/17 08:36 Dose: 40 mg Heparin Sodium (Porcine) (Heparin Sodium) 5,000 units SUBCUT Q12H [facility] Last Admin: 07/13/17 01:31 Dose: 5,000 units Insulin Aspart (Novolog) 0 unit SUBCUT TIDAC [facility]; Protocol Last Admin: 07/13/17 11:41 Dose: Not Given Insulin Detemir (Levemir) 40 unit SUBCUT BEDTIME [facility] Last Admin: 07/12/17 21:29 Dose: 40 units Ketoconazole (Nizoral 2% Crm) 0 gm TOP BID [facility] Last Admin: 07/13/17 08:39 Dose: 1 applic Losartan Potassium (Cozaar) 100 mg PO DAILY [facility] Last Admin: 07/13/17 08:35 Dose: 100 mg Nystatin (Nystop) 1 gm TOP QID [facility] Last Admin: 07/13/17 11:50 Dose: 1 dose Ondansetron HCl (Zofran) 4 mg IVPUSH Q4H PRN PRN Reason: Nausea Oxybutynin 5 Mg Er 1 each PO DAILY [facility] Last Admin: 07/13/17 08:41 Dose: Not Given Sodium Chloride (Saline Flush) 10 ml FLUSH ASDIRECTED PRN PRN Reason: Keep Vein Open Sodium Chloride (Saline Flush) 2.5 ml FLUSH ASDIRECTED PRN PRN Reason: Keep Vein Open Spironolactone (Aldactone) 25 mg PO DAILY [facility] Last Admin: 07/13/17 08:35 Dose: 25 mg Discontinued Medications Furosemide (Lasix) 40 mg IVPUSH NOW ONE Stop: 07/12/17 11:47 Last Admin: 07/12/17 12:02 Dose: 40 mg Furosemide (Lasix) 40 mg IVPUSH NOW ONE Stop: 07/12/17 18:01 Last Admin: 07/12/17 17:30 Dose: 40 mg - Exam Quality Assessment: Supplemental Oxygen General: Alert, Oriented, Cooperative HEENT: Pupils Equal, Pupils Reactive, EOMI, Mucous Membr. Moist/[place] Neck: Supple Lungs: Normal Respiratory Effort, Decreased Breath Sounds, Crackles Cardiovascular: Regular Rate, Regular Rhythm, Murmurs, Other (generalized edema ) GI/Abdominal Exam: Normal Bowel Sounds, Soft, Non-Tender Extremities: Pedal Edema Neurological: No New Focal Deficit Psy/Mental Status: Alert, Normal Affect, Normal Mood - Problem List Review Problem List Initiated/Reviewed/Updated: Yes - My Orders Last 24 Hours: My Active Orders 07/13/17 10:39 PT Evaluation and Treatment [CONS] Routine - Plan Plan:: This 76 year old male with history of DM Type 2, HTN, HFpEF admitted for Acute hypoxic respiratory failure presumed secondary to CHF exacerbation #Acute Hypoxic Respiratory Failure #Generalized Edema #Hx of HFpEF -likely secondary to Acute CHF exacerbation -last echo from July 2016: LV EF 60-65%, no WMA, with mildly dilated R atrium, mild MR, mild to moderate TR and RV systolic pressures moderate to severely elevated -repeat Echo completed, awaiting reading -continue Lasix 40 mg IV BID, Strict I/O, daily weight check #LOUISE, worsening -Cr 1.8 at admission, currently 1.9 -baseline Cr normal -continue to monitor #Elevated Alk Phos -no history of liver disease -repeat hepatic panel #HTN -continue home Losartan and Spironolactone #Dm type 2 -holding home metformin -continue levemir and SSI #Hx of Afib -unknown history, not on AC, HR normal -regularly irregular on tele with frequent PAC and PVC -continue to monitor #R knee pain #ground level fall -XR negative for fracture but does reveal suprapatellar joint effusion -Pt consulted VTe prophylaxis: Heparin Dispo: 2-3 days pending improvement.
--- NOTE | 2017-07-13 17:40 | PCM.SN ---
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 He does not recall exactly but states he had some type of kidney injury during the post-op period that required 3 month hospitalization and since then he has had generalized edema. He does admit to his edema being mild to moderately worst over the past few weeks. His sob was also mild to moderate over the past few weeks. His initial reason for presenting to the [facility] clinic day of admission was knee pain and then he was sent over to [facility] ED. He does not have history of CHF according to his last echo from 07/15/16 what was done after his surgery. CXR 1 view done in the ED was negative for acute changes and his BNP was only mildly elevated. Unclear whether of not his hypoxic respiratory failure and generalized edema is from New onset CHF with acute exacerbation. He does have audible murmur on exam and last echo was consistent with right heart enlargement and moderate TR. Patient also has subacute kidney injury with Cr 1.9, GFR 34 and CrCl 32. UA was not obtained and most recent UA from 07/13/16 had only trace protein. Labs from current admission reveal hypoproteinemia and hypoalbuminemia. It is possible his edema is multifactoral secondary to Renal and Heart disease. Patient also has mildly elevated Alk Phos. He states that he has seen Dr. Wilson or Dr. Black for prostate screening in the past however I am unable to find and records of visits from either and there is no record of PSA in the chart. Patient is also on Metformin at home for his DM. It is currently being held however due to his Cr it should be discontinued at discharge. Patients last HbA1C from 09/18/16 was 5.1. Will repeat his HbA1C and assuming DM is still controlled may consider discharging on GLP-1 agonist or based on patients age discontinuing dm medication and monitoring HbA1C may also be reasonable alternative. Plan: -obtain CXR 2 view -repeat BNP -obtain UA, Alexandro, UCr, Uprotein & BMP -obtain PSA -insert batres and continue strict I&O -f/u echo -repeat HbA1C -DC Metformin at discharge - may consider switching to Victoza at discharge or completely stopping DM medication based on HbA1C
[2017-07-13] MEDS: Insulin Detemir 100 Units/ML 3 ML Pen SUBCUT SCH (20:57)
[2017-07-14] MEDS: Nystatin Topical Powder 15 GM Bottle TOP SCH ×4 (00:09→17:41)
[2017-07-14] MEDS: Heparin Sodium 5,000 Units/ML Vial SUBCUT SCH ×2 (02:35→15:02)
[2017-07-14] MEDS: Insulin Aspart 100 Units/ML 3 ML Pen SUBCUT SCH ×3 (06:36→17:38)
[2017-07-14] MEDS: Aspirin 325 MG Tab.EC PO SCH (08:08)
[2017-07-14] MEDS: Losartan 50 MG Tab PO SCH (08:08)
[2017-07-14] MEDS: Furosemide 40 MG/4 ML VIAL IVPUSH SCH ×2 (08:08→14:59)
[2017-07-14] MEDS: Spironolactone 25 MG Tab PO SCH (08:08)
[2017-07-14] MEDS: OXYBUTYNIN 5 MG PO SCH (08:11)
--- NOTE | 2017-07-14 15:48 | PCM.PN ---
- General Info Date of Service: 07/14/17 - Review of Systems Systems Review Comment:: reports shortness of breath. - Patient Data Vitals - Most Recent: Last Vital Signs Temp 37.4 C 07/14/17 11:19 Pulse 97 07/14/17 11:19 Resp 22 H 07/14/17 11:19 BP 95/57 L 07/14/17 11:19 Pulse Ox 92 L 07/14/17 13:00 Weight - Most Recent: 151 kg I&O - Last 24 Hours: Intake & Output 07/14/17 07/14/17 07/14/17 06:59 14:59 22:59 Intake Total 770 Output Total 1850 Balance -1080 Lab Results Last 24 Hours: Laboratory Results - last 24 hr 07/13/17 07/13/17 07/13/17 Range/Units 16:30 18:15 18:15 WBC (4.0-11.0) K/uL RBC (4.50-5.90) M/uL Hgb (13.0-17.0) g/dL Hct (38.0-50.0) % MCV (80.0-98.0) fL MCH (27.0-32.0) pg MCHC (31.0-37.0) g/dL RDW Std Deviation (28.0-62.0) fl RDW Coeff of [place] (11.0-15.0) % Plt Count (150-400) K/uL MPV (7.40-12.00) fL Neut % (Auto) (48.0-80.0) % Lymph % (Auto) (16.0-40.0) % [place] % (Auto) (0.0-15.0) % Eos % (Auto) (0.0-7.0) % Baso % (Auto) (0.0-1.5) % Neut # (Auto) (1.4-5.7) K/uL Lymph # (Auto) (0.6-2.4) K/uL [place] # (Auto) (0.0-0.8) K/uL Eos # (Auto) (0.0-0.7) K/uL Baso # (Auto) (0.0-0.1) K/uL Nucleated RBC % /100WBC Nucleated RBCs # K/uL Sodium 144 (136-148) mmol/L Potassium 4.2 (3.5-5.1) mmol/L Chloride 106 (98-107) mmol/L Carbon Dioxide 36.9 H (21.0-32.0) mmol/L BUN 21 H (7.0-18.0) mg/dL Creatinine 2.0 H (0.8-1.3) mg/dL Est Cr Clr Drug Dosing 30.93 mL/min Estimated GFR (MDRD) 32.6 ml/min Glucose 136 H (74-106) mg/dL POC Glucose 156 H (60-110) mg/dL Hemoglobin A1c (4.5-6.2) % Calcium 8.5 (8.5-10.1) mg/dL Magnesium (1.5-2.0) mg/dL B-Natriuretic Peptide 291 H (<100) PG/ML PSA Screen 4.21 H (0.05-4.00) ng/mL Urine Color Urine Appearance Urine pH (5.0-8.0) Ur Specific [place] (1.001-1.035) Urine Protein (NEGATIVE) mg/dL Urine Glucose (UA) (NEGATIVE) mg/dL Urine Ketones (NEGATIVE) mg/dL Urine Occult Blood (NEGATIVE) Urine Nitrite (NEGATIVE) Urine Bilirubin (NEGATIVE) Urine Urobilinogen (<2.0) EU/dL Ur Leukocyte Esterase (NEGATIVE) Urine RBC (0-2/HPF) Urine WBC (0-5/HPF) Ur Epithelial Cells (NONE-FEW) Ur Renal Epithelial Cell Amorphous Sediment (NEGATIVE) Urine Bacteria (NEGATIVE) Ur Random Creatinine mg/dL U Random Total Protein (<11.9) mg/dL Ur Random Sodium (40.0-220.0) mmol/L 07/13/17 07/13/17 07/13/17 Range/Units 18:15 18:40 18:40 WBC (4.0-11.0) K/uL RBC (4.50-5.90) M/uL Hgb (13.0-17.0) g/dL Hct (38.0-50.0) % MCV (80.0-98.0) fL MCH (27.0-32.0) pg MCHC (31.0-37.0) g/dL RDW Std Deviation (28.0-62.0) fl RDW Coeff of [place] (11.0-15.0) % Plt Count (150-400) K/uL MPV (7.40-12.00) fL Neut % (Auto) (48.0-80.0) % Lymph % (Auto) (16.0-40.0) % [place] % (Auto) (0.0-15.0) % Eos % (Auto) (0.0-7.0) % Baso % (Auto) (0.0-1.5) % Neut # (Auto) (1.4-5.7) K/uL Lymph # (Auto) (0.6-2.4) K/uL [place] # (Auto) (0.0-0.8) K/uL Eos # (Auto) (0.0-0.7) K/uL Baso # (Auto) (0.0-0.1) K/uL Nucleated RBC % /100WBC Nucleated RBCs # K/uL Sodium (136-148) mmol/L Potassium (3.5-5.1) mmol/L Chloride (98-107) mmol/L Carbon Dioxide (21.0-32.0) mmol/L BUN (7.0-18.0) mg/dL Creatinine (0.8-1.3) mg/dL Est Cr Clr Drug Dosing mL/min Estimated GFR (MDRD) ml/min Glucose (74-106) mg/dL POC Glucose (60-110) mg/dL Hemoglobin A1c 9.7 H (4.5-6.2) % Calcium (8.5-10.1) mg/dL Magnesium (1.5-2.0) mg/dL B-Natriuretic Peptide (<100) PG/ML PSA Screen (0.05-4.00) ng/mL Urine Color YELLOW Urine Appearance HAZY Urine pH 5.5 (5.0-8.0) Ur Specific [place] 1.025 (1.001-1.035) Urine Protein 100 (NEGATIVE) mg/dL Urine Glucose (UA) NEGATIVE (NEGATIVE) mg/dL Urine Ketones NEGATIVE (NEGATIVE) mg/dL Urine Occult Blood TRACE-INTACT (NEGATIVE) Urine Nitrite NEGATIVE (NEGATIVE) Urine Bilirubin NEGATIVE (NEGATIVE) Urine Urobilinogen 0.2 (<2.0) EU/dL Ur Leukocyte Esterase NEGATIVE (NEGATIVE) Urine RBC 0-2 (0-2/HPF) Urine WBC 0-2 (0-5/HPF) Ur Epithelial Cells RARE (NONE-FEW) Ur Renal Epithelial Cell OCCASIONAL Amorphous Sediment LIGHT (NEGATIVE) Urine Bacteria FEW (NEGATIVE) Ur Random Creatinine 52.7 mg/dL U Random Total Protein (<11.9) mg/dL Ur Random Sodium 86.0 (40.0-220.0) mmol/L 07/13/17 07/13/17 07/14/17 Range/Units 18:40 20:52 05:25 WBC (4.0-11.0) K/uL RBC (4.50-5.90) M/uL Hgb (13.0-17.0) g/dL Hct (38.0-50.0) % MCV (80.0-98.0) fL MCH (27.0-32.0) pg MCHC (31.0-37.0) g/dL RDW Std Deviation (28.0-62.0) fl RDW Coeff of [place] (11.0-15.0) % Plt Count (150-400) K/uL MPV (7.40-12.00) fL Neut % (Auto) (48.0-80.0) % Lymph % (Auto) (16.0-40.0) % [place] % (Auto) (0.0-15.0) % Eos % (Auto) (0.0-7.0) % Baso % (Auto) (0.0-1.5) % Neut # (Auto) (1.4-5.7) K/uL Lymph # (Auto) (0.6-2.4) K/uL [place] # (Auto) (0.0-0.8) K/uL Eos # (Auto) (0.0-0.7) K/uL Baso # (Auto) (0.0-0.1) K/uL Nucleated RBC % /100WBC Nucleated RBCs # K/uL Sodium (136-148) mmol/L Potassium (3.5-5.1) mmol/L Chloride (98-107) mmol/L Carbon Dioxide (21.0-32.0) mmol/L BUN (7.0-18.0) mg/dL Creatinine (0.8-1.3) mg/dL Est Cr Clr Drug Dosing mL/min Estimated GFR (MDRD) ml/min Glucose (74-106) mg/dL POC Glucose 175 H 97 (60-110) mg/dL Hemoglobin A1c (4.5-6.2) % Calcium (8.5-10.1) mg/dL Magnesium (1.5-2.0) mg/dL B-Natriuretic Peptide (<100) PG/ML PSA Screen (0.05-4.00) ng/mL Urine Color Urine Appearance Urine pH (5.0-8.0) Ur Specific [place] (1.001-1.035) Urine Protein (NEGATIVE) mg/dL Urine Glucose (UA) (NEGATIVE) mg/dL Urine Ketones (NEGATIVE) mg/dL Urine Occult Blood (NEGATIVE) Urine Nitrite (NEGATIVE) Urine Bilirubin (NEGATIVE) Urine Urobilinogen (<2.0) EU/dL Ur Leukocyte Esterase (NEGATIVE) Urine RBC (0-2/HPF) Urine WBC (0-5/HPF) Ur Epithelial Cells (NONE-FEW) Ur Renal Epithelial Cell Amorphous Sediment (NEGATIVE) Urine Bacteria (NEGATIVE) Ur Random Creatinine mg/dL U Random Total Protein 169.7 H (<11.9) mg/dL Ur Random Sodium (40.0-220.0) mmol/L 07/14/17 07/14/17 07/14/17 Range/Units 05:51 05:51 11:12 WBC 9.81 (4.0-11.0) K/uL RBC 5.30 (4.50-5.90) M/uL Hgb 11.7 L (13.0-17.0) g/dL Hct 42.4 (38.0-50.0) % MCV 80.0 (80.0-98.0) fL MCH 22.1 L (27.0-32.0) pg MCHC 27.6 L (31.0-37.0) g/dL RDW Std Deviation 54.6 (28.0-62.0) fl RDW Coeff of [place] 19 H (11.0-15.0) % Plt Count 209 (150-400) K/uL MPV 9.90 (7.40-12.00) fL Neut % (Auto) 69.9 (48.0-80.0) % Lymph % (Auto) 17.0 (16.0-40.0) % [place] % (Auto) 8.3 (0.0-15.0) % Eos % (Auto) 4.6 (0.0-7.0) % Baso % (Auto) 0.2 (0.0-1.5) % Neut # (Auto) 6.9 H (1.4-5.7) K/uL Lymph # (Auto) 1.7 (0.6-2.4) K/uL [place] # (Auto) 0.8 (0.0-0.8) K/uL Eos # (Auto) 0.5 (0.0-0.7) K/uL Baso # (Auto) 0.0 (0.0-0.1) K/uL Nucleated RBC % 0.0 /100WBC Nucleated RBCs # 0 K/uL Sodium 144 (136-148) mmol/L Potassium 4.2 (3.5-5.1) mmol/L Chloride 105 (98-107) mmol/L Carbon Dioxide 36.4 H (21.0-32.0) mmol/L BUN 24 H (7.0-18.0) mg/dL Creatinine 1.9 H (0.8-1.3) mg/dL Est Cr Clr Drug Dosing 32.56 mL/min Estimated GFR (MDRD) 34.5 ml/min Glucose 106 (74-106) mg/dL POC Glucose 149 H (60-110) mg/dL Hemoglobin A1c (4.5-6.2) % Calcium 8.6 (8.5-10.1) mg/dL Magnesium 2.0 (1.5-2.0) mg/dL B-Natriuretic Peptide (<100) PG/ML PSA Screen (0.05-4.00) ng/mL Urine Color Urine Appearance Urine pH (5.0-8.0) Ur Specific [place] (1.001-1.035) Urine Protein (NEGATIVE) mg/dL Urine Glucose (UA) (NEGATIVE) mg/dL Urine Ketones (NEGATIVE) mg/dL Urine Occult Blood (NEGATIVE) Urine Nitrite (NEGATIVE) Urine Bilirubin (NEGATIVE) Urine Urobilinogen (<2.0) EU/dL Ur Leukocyte Esterase (NEGATIVE) Urine RBC (0-2/HPF) Urine WBC (0-5/HPF) Ur Epithelial Cells (NONE-FEW) Ur Renal Epithelial Cell Amorphous Sediment (NEGATIVE) Urine Bacteria (NEGATIVE) Ur Random Creatinine mg/dL U Random Total Protein (<11.9) mg/dL Ur Random Sodium (40.0-220.0) mmol/L Med Orders - Current: Current Medications Acetaminophen (Tylenol) 650 mg PO Q4H PRN PRN Reason: Pain (mild 1-3) Aspirin (Ecotrin) 325 mg PO DAILY [facility] Last Admin: 07/14/17 08:08 Dose: 325 mg Furosemide (Lasix) 40 mg IVPUSH BIDDIURETIC [facility] Last Admin: 07/14/17 14:59 Dose: 40 mg Heparin Sodium (Porcine) (Heparin Sodium) 5,000 units SUBCUT Q12H [facility] Last Admin: 07/14/17 15:02 Dose: 5,000 units Insulin Aspart (Novolog) 0 unit SUBCUT TIDAC [facility]; Protocol Last Admin: 07/14/17 11:21 Dose: Not Given Insulin Detemir (Levemir) 40 unit SUBCUT BEDTIME [facility] Last Admin: 07/13/17 20:57 Dose: 40 units Ketoconazole (Nizoral 2% Crm) 0 gm TOP BID [facility] Last Admin: 07/14/17 08:09 Dose: 1 applic Losartan Potassium (Cozaar) 100 mg PO DAILY [facility] Last Admin: 07/14/17 08:08 Dose: 100 mg Nystatin (Nystop) 1 gm TOP QID [facility] Last Admin: 07/14/17 12:00 Dose: 1 applic Ondansetron HCl (Zofran) 4 mg IVPUSH Q4H PRN PRN Reason: Nausea Oxybutynin 5 Mg Er 1 each PO DAILY [facility] Last Admin: 07/14/17 08:11 Dose: Not Given Sodium Chloride (Saline Flush) 10 ml FLUSH ASDIRECTED PRN PRN Reason: Keep Vein Open Sodium Chloride (Saline Flush) 2.5 ml FLUSH ASDIRECTED PRN PRN Reason: Keep Vein Open Spironolactone (Aldactone) 25 mg PO DAILY [facility] Last Admin: 07/14/17 08:08 Dose: 25 mg Discontinued Medications Furosemide (Lasix) 40 mg IVPUSH NOW ONE Stop: 07/12/17 11:47 Last Admin: 07/12/17 12:02 Dose: 40 mg Furosemide (Lasix) 40 mg IVPUSH NOW ONE Stop: 07/12/17 18:01 Last Admin: 07/12/17 17:30 Dose: 40 mg - Exam General: Alert, Oriented Lungs: Clear to Auscultation, Normal Respiratory Effort Cardiovascular: Regular Rate, Regular Rhythm GI/Abdominal Exam: Soft, Non-Tender Extremities: Non-Tender, Pedal Edema (+1) Skin: Warm, Dry, Intact - Problem List Review Problem List Initiated/Reviewed/Updated: Yes - Plan Plan:: This 76 year old male with history of DM Type 2, HTN, HFpEF admitted for Acute hypoxic respiratory failure presumed secondary to CHF exacerbation CHF: will continue diuresis with lasix and monitor kidney function
[2017-07-14] MEDS: Insulin Detemir 100 Units/ML 3 ML Pen SUBCUT SCH (20:36)
[2017-07-15] MEDS: Nystatin Topical Powder 15 GM Bottle TOP SCH ×5 (00:04→23:22)
[2017-07-15] MEDS: Heparin Sodium 5,000 Units/ML Vial SUBCUT SCH ×3 (02:04→14:57)
[2017-07-15] MEDS: Insulin Aspart 100 Units/ML 3 ML Pen SUBCUT SCH ×3 (06:50→20:40)
[2017-07-15] MEDS: Aspirin 325 MG Tab.EC PO SCH (08:06)
[2017-07-15] MEDS: Losartan 50 MG Tab PO SCH (08:07)
[2017-07-15] MEDS: Spironolactone 25 MG Tab PO SCH (08:07)
[2017-07-15] MEDS: Furosemide 40 MG/4 ML VIAL IVPUSH SCH ×2 (08:13→14:56)
[2017-07-15] MEDS: OXYBUTYNIN 5 MG PO SCH (08:21)
--- NOTE | 2017-07-15 11:26 | CR ---
EXAM DATE: 07/12/17 PATIENT'S AGE: 76 Patient: LEANNE DAY Facility: [place], [place] Site . Site : [id number] Study: XRay Knee Right [id number]/11/2018 3:54:33 PM Ordering Physician: Ashwin Delatorre Final Report: HISTORY: Fall earlier this week, pain. Total knee arthroplasty 2017. FINDINGS: Portable AP, cross-table lateral and sunrise views of the right knee are compared with 19 Jul 2016. PE right total knee arthroplasty is present. There is normal alignment of the femoral and tibial components. There is postoperative edges of the posterior patella. There does appear to be some joint fluid present. No fracture line identified. IMPRESSION: 1. Right total knee arthroplasty in anatomic alignment without fracture identified. 2. Small suprapatellar joint effusion. Dictated by Chuyita Arita MD @ 07/12/2017 4:05:31 PM Dictated by: Chuyita Arita MD @ 07/12/2017 16:05:42 (Electronic Signature) Report Signed by Proxy. ELSA
--- NOTE | 2017-07-15 11:56 | PCM.PN ---
Addendum entered and electronically signed by Joycelyn Dela Cruz NP 07/15/17 17:26 : Will obtain VQ scan tomorrow. Will start Heparin gtt in meantime and obtain venous doppler bilaterally. Discussed with patient, who is in agreement. Dyspnea continues this afternoon with no improvement with solumedrol, will keep this order q12hr overnight and monitor in am. He reports many year history of smoking, quit about 14 years ago. Has never been told he had COPD and no hx PFTs. Addendum entered and electronically signed by Joycelyn Dela Cruz NP 07/15/17 14:31 : Chest CT without contrast obtained to further evaluate lungs due to hypoxia and dyspnea. No acute cardio-pulmonary process noted, Trachea has saber-sheath appearance suggesting COPD, correlate clinically. coronary artery calcifications note within LAD, hypodense blood to myocardium suggesting anemia. Hgb 11.0 today Discussed findings over the phone with Dr Rajput. He recommended evaluating further for COPD and possibly PE. Will order Solumedrol and monitor effectiveness. Will also order VQ scan due to continued dyspnea, hypoxia and intermittent tachycardia. Original Note: - General Info Date of Service: 07/15/17 Admission Dx/Problem (Free Text): Admission Diagnosis/Problem Admission Diagnosis/Problem Dyspnea, possible CHF, Congestive heart failure Subjective Update: Continues to feel short of breath Functional Status: Reports: Pain Controlled, Tolerating Diet, Ambulating, Urinating - Review of Systems General: Reports: No Symptoms. Denies: Fever, Weakness, Fatigue, Malaise HEENT: Denies: Headaches, Sore Throat, Visual Changes Pulmonary: Reports: Shortness of Breath. Denies: Wheezing Cardiovascular: Reports: Orthopnea, Edema (BLE). Denies: Chest Pain, Palpitations Gastrointestinal: Reports: No Symptoms. Denies: Abdominal Pain, Nausea, Vomiting Genitourinary: Reports: No Symptoms. Denies: Dysuria, Frequency, Burning Musculoskeletal: Reports: No Symptoms Skin: Reports: No Symptoms Neurological: Reports: No Symptoms Psychiatric: Reports: No Symptoms - Patient Data Vitals - Most Recent: Last Vital Signs Temp 98.9 F 07/15/17 08:24 Pulse 113 H 07/15/17 08:24 Resp 20 07/15/17 08:24 BP 134/62 07/15/17 08:24 Pulse Ox 90 L 07/15/17 08:24 Weight - Most Recent: 151 kg I&O - Last 24 Hours: Intake & Output 07/14/17 07/15/17 07/15/17 22:59 06:59 14:59 Intake Total 1000 1000 Output Total 1700 1725 Balance -700 -725 Lab Results Last 24 Hours: Laboratory Results - last 24 hr 07/14/17 07/14/17 07/15/17 Range/Units 16:43 20:24 05:26 WBC (4.0-11.0) K/uL RBC (4.50-5.90) M/uL Hgb (13.0-17.0) g/dL Hct (38.0-50.0) % MCV (80.0-98.0) fL MCH (27.0-32.0) pg MCHC (31.0-37.0) g/dL RDW Std Deviation (28.0-62.0) fl RDW Coeff of [place] (11.0-15.0) % Plt Count (150-400) K/uL MPV (7.40-12.00) fL Neut % (Auto) (48.0-80.0) % Lymph % (Auto) (16.0-40.0) % [place] % (Auto) (0.0-15.0) % Eos % (Auto) (0.0-7.0) % Baso % (Auto) (0.0-1.5) % Neut # (Auto) (1.4-5.7) K/uL Lymph # (Auto) (0.6-2.4) K/uL [place] # (Auto) (0.0-0.8) K/uL Eos # (Auto) (0.0-0.7) K/uL Baso # (Auto) (0.0-0.1) K/uL Nucleated RBC % /100WBC Nucleated RBCs # K/uL Sodium (136-148) mmol/L Potassium (3.5-5.1) mmol/L Chloride (98-107) mmol/L Carbon Dioxide (21.0-32.0) mmol/L BUN (7.0-18.0) mg/dL Creatinine (0.8-1.3) mg/dL Est Cr Clr Drug Dosing mL/min Estimated GFR (MDRD) ml/min Glucose (74-106) mg/dL POC Glucose 176 H 143 H 107 (60-110) mg/dL Calcium (8.5-10.1) mg/dL Magnesium (1.5-2.0) mg/dL 07/15/17 07/15/17 07/15/17 Range/Units 05:27 05:27 11:13 WBC 7.92 (4.0-11.0) K/uL RBC 4.92 (4.50-5.90) M/uL Hgb 11.0 L (13.0-17.0) g/dL Hct 38.8 (38.0-50.0) % MCV 78.9 L (80.0-98.0) fL MCH 22.4 L (27.0-32.0) pg MCHC 28.4 L (31.0-37.0) g/dL RDW Std Deviation 53.4 (28.0-62.0) fl RDW Coeff of [place] 19 H (11.0-15.0) % Plt Count 205 (150-400) K/uL MPV 9.70 (7.40-12.00) fL Neut % (Auto) 66.0 (48.0-80.0) % Lymph % (Auto) 19.9 (16.0-40.0) % [place] % (Auto) 8.6 (0.0-15.0) % Eos % (Auto) 5.1 (0.0-7.0) % Baso % (Auto) 0.4 (0.0-1.5) % Neut # (Auto) 5.2 (1.4-5.7) K/uL Lymph # (Auto) 1.6 (0.6-2.4) K/uL [place] # (Auto) 0.7 (0.0-0.8) K/uL Eos # (Auto) 0.4 (0.0-0.7) K/uL Baso # (Auto) 0.0 (0.0-0.1) K/uL Nucleated RBC % 0.0 /100WBC Nucleated RBCs # 0 K/uL Sodium 144 (136-148) mmol/L Potassium 3.9 (3.5-5.1) mmol/L Chloride 104 (98-107) mmol/L Carbon Dioxide 35.8 H (21.0-32.0) mmol/L BUN 25 H (7.0-18.0) mg/dL Creatinine 1.8 H (0.8-1.3) mg/dL Est Cr Clr Drug Dosing 34.37 mL/min Estimated GFR (MDRD) 36.8 ml/min Glucose 103 (74-106) mg/dL POC Glucose 116 H (60-110) mg/dL Calcium 8.6 (8.5-10.1) mg/dL Magnesium 1.9 (1.5-2.0) mg/dL Med Orders - Current: Current Medications Acetaminophen (Tylenol) 650 mg PO Q4H PRN PRN Reason: Pain (mild 1-3) Aspirin (Ecotrin) 325 mg PO DAILY [facility] Last Admin: 07/15/17 08:06 Dose: 325 mg Furosemide (Lasix) 40 mg IVPUSH TID [facility] Heparin Sodium (Porcine) (Heparin Sodium) 5,000 units SUBCUT Q12H [facility] Last Admin: 07/15/17 02:04 Dose: 5,000 units Insulin Aspart (Novolog) 0 unit SUBCUT TIDAC [facility]; Protocol Last Admin: 07/15/17 06:50 Dose: Not Given Insulin Detemir (Levemir) 40 unit SUBCUT BEDTIME [facility] Last Admin: 07/14/17 20:36 Dose: 40 units Ketoconazole (Nizoral 2% Crm) 0 gm TOP BID [facility] Last Admin: 07/15/17 08:15 Dose: 1 applic Losartan Potassium (Cozaar) 100 mg PO DAILY [facility] Last Admin: 07/15/17 08:07 Dose: 100 mg Nystatin (Nystop) 1 gm TOP QID [facility] Last Admin: 07/15/17 05:31 Dose: 1 applic Ondansetron HCl (Zofran) 4 mg IVPUSH Q4H PRN PRN Reason: Nausea Oxybutynin 5 Mg Er 1 each PO DAILY [facility] Last Admin: 07/15/17 08:21 Dose: Not Given Sodium Chloride (Saline Flush) 10 ml FLUSH ASDIRECTED PRN PRN Reason: Keep Vein Open Sodium Chloride (Saline Flush) 2.5 ml FLUSH ASDIRECTED PRN PRN Reason: Keep Vein Open Spironolactone (Aldactone) 25 mg PO DAILY [facility] Last Admin: 07/15/17 08:07 Dose: 25 mg Discontinued Medications Furosemide (Lasix) 40 mg IVPUSH NOW ONE Stop: 07/12/17 11:47 Last Admin: 07/12/17 12:02 Dose: 40 mg Furosemide (Lasix) 40 mg IVPUSH BIDDIURETIC [facility] Last Admin: 07/15/17 08:13 Dose: 40 mg Furosemide (Lasix) 40 mg IVPUSH NOW ONE Stop: 07/12/17 18:01 Last Admin: 07/12/17 17:30 Dose: 40 mg - Exam General: Alert, Oriented, Cooperative, No Acute Distress Neck: Supple Lungs: Decreased Breath Sounds (bibasliar). No: Normal Respiratory Effort ( some dypsnea noted with speech and exertion), Crackles, Wheezing Cardiovascular: Regular Rate, Regular Rhythm Extremities: Normal Inspection, Normal Range of Motion, Non-Tender, Normal Capillary Refill, Pedal Edema (+2-3 edema to BLE. Patient now reports they are bigger than normal. ) Neurological: No New Focal Deficit Psy/Mental Status: Alert, Normal Affect, Normal Mood - Problem List & Annotations (1) CHF exacerbation SNOMED Code(s): 82302995 Code(s): I50.9 - HEART FAILURE, UNSPECIFIED Status: Suspected Current Visit: Yes Qualifiers: Heart failure type: unspecified Qualified Code(s): I50.9 - Heart failure, unspecified (2) Dyspnea SNOMED Code(s): 865977980 Code(s): R06.00 - DYSPNEA, UNSPECIFIED Status: Acute Current Visit: Yes Qualifiers: Dyspnea type: dyspnea on exertion Qualified Code(s): R06.09 - Other forms of dyspnea (3) Hypoxia SNOMED Code(s): 601296762 Code(s): R09.02 - HYPOXEMIA Status: Acute Current Visit: Yes (4) A-fib SNOMED Code(s): 58570443 Code(s): I48.91 - UNSPECIFIED ATRIAL FIBRILLATION Status: Chronic Current Visit: No Qualifiers: Atrial fibrillation type: paroxysmal Qualified Code(s): I48.0 - Paroxysmal atrial fibrillation (5) DM type 2 (diabetes mellitus, type 2) SNOMED Code(s): 62648632 Code(s): E11.9 - TYPE 2 DIABETES MELLITUS WITHOUT COMPLICATIONS Status: Chronic Current Visit: No Qualifiers: Diabetes mellitus termite treater helper insulin use: with longterm use Diabetes mellitus complication status: without complication Qualified Code(s): E11.9 - Type 2 diabetes mellitus without complications; Z79.4 - computer terminal operator (current) use of insulin (6) HTN (hypertension) SNOMED Code(s): 56028705 Code(s): I10 - ESSENTIAL (PRIMARY) HYPERTENSION Status: Chronic Current Visit: No Qualifiers: Hypertension type: essential hypertension Qualified Code(s): I10 - Essential (primary) hypertension (7) Morbid obesity with BMI of 50.0-59.9, adult SNOMED Code(s): 328031519 Code(s): E66.01 - MORBID (SEVERE) OBESITY DUE TO EXCESS CALORIES; Z68.43 - BODY MASS INDEX (BMI) 50-59.9 , ADULT Status: Acute Current Visit: Yes - Problem List Review Problem List Initiated/Reviewed/Updated: Yes - My Orders Last 24 Hours: My Active Orders 07/15/17 09:47 Chest wo Cont [CT] Urgent 07/15/17 14:00 Furosemide [Lasix] 40 mg IVPUSH TID - Plan Plan:: This 76 year old male with history of DM Type 2, HTN, HFpEF admitted for Acute hypoxic respiratory failure presumed secondary to CHF exacerbation 1. CHF exacerbation: Suspected, ECHO back today, reveals EF 55%, poor study. mild aortic valve sclerosis without stenosis, trace MR, mild tricuspid regurgitation, R ventricular systolic pressure is moderately elevate 48.7, improvement of pulmonary pressure when compared to 07/2016 ECHO. Rhythm noted to be atrial fib. Continue to diurese with Lasix 40 mg IV will increase to TID. Cardiology unavailable in house. Strict I/O, daily weights. De La Cruz for strict I/ O. Low Na diet with 2 L FR. 2. HTN: Continue Losartan and Spironolactone. Monitor 3. Dm type 2: Continue Levemir at bedtime. hold Metformin during stay. Novolog SSI with meals. 4. Afib: History unknown, not using anticoagulation. Currently SR on telemetry. 5. R knee pain: Better, no fractures noted on Xray, small joint effusion. Able to ambulate. No erythema. VTE prophylaxis: Heparin Dispo: 2-3 days pending improvement.
[2017-07-15] MEDS ORDERED: Furosemide 40 MG/4 ML VIAL IVPUSH SCH (14:00)
--- NOTE | 2017-07-15 14:03 | CT ---
EXAMINATION: CT chest without contrast HISTORY: Dyspnea COMPARISON: None TECHNIQUE: Axial CT images obtained through the chest without contrast. Coronal and sagittal reconstr uctions obtained. FINDINGS: There is atelectasis within the lung bases. There is a 6 mm nodule within the right lung ba se. No pleural effusion or pneumothorax. The heart is normal in size without a pericardial effusion. The blood density relative to myocardium is relatively hypodense. Coronary artery calcifications are noted. On pathologically enlarged mediastinal lymph nodes noted. No hilar fullness. No axillary lymph adenopathy. The thoracic trachea has a narrowed transverse diameter. Moderate bilateral gynecomastia. Lap band noted. Probable lipoma overlying the mid thoracic spine. Renal cortical cysts demonstrated. No suspicious osseous abnormality. IMPRESSION: 1. No acute cardiopulmonary findings. 2. The trachea has a saber-sheath appearance suggesting COPD, correlate clinically. 3. Coronary artery calcifications noted most prominent within the LAD. 4. Hypodense blood to myocardium suggesting anemia.
[2017-07-15] MEDS: methylPREDNISolone Sodium Succinate 125 MG/2 ML SDV IVPUSH SCH (14:57)
[2017-07-15] MEDS ORDERED: Heparin Sodium 5,000 Units/ML Vial IVPUSH ONE (17:15)
[2017-07-15] MEDS ORDERED: Heparin Sodium 5,000 Units/ML Vial IVPUSH PRN (17:17)
[2017-07-15] MEDS: Heparin Sod,Pork In 0.45% Nacl 25,000 UNIT/500 ML IV.SOLN IV SCH (18:33)
--- NOTE | 2017-07-15 19:03 | CR ---
EXAM DATE: 07/12/17 PATIENT'S AGE: 76 Patient: LEANNE DAY Facility: [place], [place] Site . Site : [id number] Study: XRay Chest [id number] 5:38:07 PM Ordering Physician: Ashwin Delatorre Final Report: CHEST 2 VIEWS INDICATION: Hypoxia. COMPARISON: No comparison. IMPRESSION: Mildly enlarged cardiac silhouette. Vascularity appears normal. Lungs are clear. No pneumothorax or pleural abnormality. Overlying cardiac monitors. Dictated by Girish Murphy MD @ Jul 13 2017 5:58PM (Electronic Signature) Report Signed by Proxy. ELSA
[2017-07-15] MEDS: Albuterol/Ipratropium 3.0-0.5 MG/3 ML Neb Soln NEB SCH (20:41)
[2017-07-15] MEDS: Insulin Detemir 100 Units/ML 3 ML Pen SUBCUT SCH (22:26)
[2017-07-16] MEDS: Albuterol/Ipratropium 3.0-0.5 MG/3 ML Neb Soln NEB SCH ×3 (01:30→11:13)
[2017-07-16] MEDS: methylPREDNISolone Sodium Succinate 125 MG/2 ML SDV IVPUSH SCH ×2 (01:32→13:54)
[2017-07-16] MEDS: Heparin Sod,Pork In 0.45% Nacl 25,000 UNIT/500 ML IV.SOLN IV SCH (05:41)
[2017-07-16] MEDS: Nystatin Topical Powder 15 GM Bottle TOP SCH ×2 (05:51→11:02)
--- NOTE | 2017-07-16 06:20 | PCM.PN ---
- General Info Date of Service: 07/16/17 Admission Dx/Problem (Free Text): Admission Diagnosis/Problem Admission Diagnosis/Problem Dyspnea, possible CHF, Congestive heart failure Subjective Update: Continues to have shortness of breath, especially with activity and continues to have hypoxia. NO chest pain. No abdominal pain. Reports feeling lowsy. Legs continues to be edematous, he reports they are worse than normal. Functional Status: Reports: Pain Controlled, Tolerating Diet, Ambulating, Urinating - Review of Systems HEENT: Reports: No Symptoms. Denies: Glasses, Headaches, Sore Throat Pulmonary: Reports: Shortness of Breath. Denies: Cough, Sputum, Wheezing Cardiovascular: Reports: Dyspnea on Exertion, Edema (bilateral lower legs.). Denies: Chest Pain Gastrointestinal: Reports: No Symptoms. Denies: Abdominal Pain, Nausea, Vomiting Genitourinary: Reports: No Symptoms. Denies: Dysuria, Frequency, Burning Musculoskeletal: Reports: No Symptoms Skin: Reports: No Symptoms Neurological: Reports: No Symptoms Psychiatric: Reports: No Symptoms - Patient Data Vitals - Most Recent: Last Vital Signs Temp 98.6 F 07/16/17 04:00 Pulse 84 07/16/17 04:00 Resp 20 07/16/17 04:00 BP 130/65 07/16/17 04:00 Pulse Ox 89 L 07/16/17 04:00 Weight - Most Recent: 149.9 kg I&O - Last 24 Hours: Intake & Output 07/15/17 07/15/17 07/16/17 14:59 22:59 06:59 Intake Total 1000 Output Total 2700 Balance -1700 Lab Results Last 24 Hours: Laboratory Results - last 24 hr 07/15/17 07/15/17 07/15/17 Range/Units 05:27 05:27 11:13 WBC 7.92 (4.0-11.0) K/uL RBC 4.92 (4.50-5.90) M/uL Hgb 11.0 L (13.0-17.0) g/dL Hct 38.8 (38.0-50.0) % MCV 78.9 L (80.0-98.0) fL MCH 22.4 L (27.0-32.0) pg MCHC 28.4 L (31.0-37.0) g/dL RDW Std Deviation 53.4 (28.0-62.0) fl RDW Coeff of [place] 19 H (11.0-15.0) % Plt Count 205 (150-400) K/uL MPV 9.70 (7.40-12.00) fL Neut % (Auto) 66.0 (48.0-80.0) % Lymph % (Auto) 19.9 (16.0-40.0) % Day % (Auto) 8.6 (0.0-15.0) % Eos % (Auto) 5.1 (0.0-7.0) % Baso % (Auto) 0.4 (0.0-1.5) % Neut # (Auto) 5.2 (1.4-5.7) K/uL Lymph # (Auto) 1.6 (0.6-2.4) K/uL Day # (Auto) 0.7 (0.0-0.8) K/uL Eos # (Auto) 0.4 (0.0-0.7) K/uL Baso # (Auto) 0.0 (0.0-0.1) K/uL Nucleated RBC % 0.0 /100WBC Nucleated RBCs # 0 K/uL APTT (18.6-31.3) SEC Sodium 144 (136-148) mmol/L Potassium 3.9 (3.5-5.1) mmol/L Chloride 104 (98-107) mmol/L Carbon Dioxide 35.8 H (21.0-32.0) mmol/L BUN 25 H (7.0-18.0) mg/dL Creatinine 1.8 H (0.8-1.3) mg/dL Est Cr Clr Drug Dosing 34.37 mL/min Estimated GFR (MDRD) 36.8 ml/min Glucose 103 (74-106) mg/dL POC Glucose 116 H (60-110) mg/dL Calcium 8.6 (8.5-10.1) mg/dL Magnesium 1.9 (1.5-2.0) mg/dL 07/15/17 07/15/17 07/15/17 Range/Units 16:05 17:29 21:33 WBC (4.0-11.0) K/uL RBC (4.50-5.90) M/uL Hgb (13.0-17.0) g/dL Hct (38.0-50.0) % MCV (80.0-98.0) fL MCH (27.0-32.0) pg MCHC (31.0-37.0) g/dL RDW Std Deviation (28.0-62.0) fl RDW Coeff of [place] (11.0-15.0) % Plt Count (150-400) K/uL MPV (7.40-12.00) fL Neut % (Auto) (48.0-80.0) % Lymph % (Auto) (16.0-40.0) % Day % (Auto) (0.0-15.0) % Eos % (Auto) (0.0-7.0) % Baso % (Auto) (0.0-1.5) % Neut # (Auto) (1.4-5.7) K/uL Lymph # (Auto) (0.6-2.4) K/uL Day # (Auto) (0.0-0.8) K/uL Eos # (Auto) (0.0-0.7) K/uL Baso # (Auto) (0.0-0.1) K/uL Nucleated RBC % /100WBC Nucleated RBCs # K/uL APTT 27.7 (18.6-31.3) SEC Sodium (136-148) mmol/L Potassium (3.5-5.1) mmol/L Chloride (98-107) mmol/L Carbon Dioxide (21.0-32.0) mmol/L BUN (7.0-18.0) mg/dL Creatinine (0.8-1.3) mg/dL Est Cr Clr Drug Dosing mL/min Estimated GFR (MDRD) ml/min Glucose (74-106) mg/dL POC Glucose 137 H 200 H (60-110) mg/dL Calcium (8.5-10.1) mg/dL Magnesium (1.5-2.0) mg/dL 07/16/17 Range/Units 00:30 WBC (4.0-11.0) K/uL RBC (4.50-5.90) M/uL Hgb (13.0-17.0) g/dL Hct (38.0-50.0) % MCV (80.0-98.0) fL MCH (27.0-32.0) pg MCHC (31.0-37.0) g/dL RDW Std Deviation (28.0-62.0) fl RDW Coeff of [place] (11.0-15.0) % Plt Count (150-400) K/uL MPV (7.40-12.00) fL Neut % (Auto) (48.0-80.0) % Lymph % (Auto) (16.0-40.0) % Day % (Auto) (0.0-15.0) % Eos % (Auto) (0.0-7.0) % Baso % (Auto) (0.0-1.5) % Neut # (Auto) (1.4-5.7) K/uL Lymph # (Auto) (0.6-2.4) K/uL Day # (Auto) (0.0-0.8) K/uL Eos # (Auto) (0.0-0.7) K/uL Baso # (Auto) (0.0-0.1) K/uL Nucleated RBC % /100WBC Nucleated RBCs # K/uL APTT 79.3 H (18.6-31.3) SEC Sodium (136-148) mmol/L Potassium (3.5-5.1) mmol/L Chloride (98-107) mmol/L Carbon Dioxide (21.0-32.0) mmol/L BUN (7.0-18.0) mg/dL Creatinine (0.8-1.3) mg/dL Est Cr Clr Drug Dosing mL/min Estimated GFR (MDRD) ml/min Glucose (74-106) mg/dL POC Glucose (60-110) mg/dL Calcium (8.5-10.1) mg/dL Magnesium (1.5-2.0) mg/dL Med Orders - Current: Current Medications Acetaminophen (Tylenol) 650 mg PO Q4H PRN PRN Reason: Pain (mild 1-3) Albuterol/Ipratropium (Duoneb 3.0-0.5 Mg/3 Ml) 3 ml NEB Q6HRRT [facility] Last Admin: 07/16/17 01:30 Dose: 3 ml Aspirin (Ecotrin) 325 mg PO DAILY [facility] Last Admin: 07/15/17 08:06 Dose: 325 mg Furosemide (Lasix) 40 mg IVPUSH BIDDIURETIC [facility] Last Admin: 07/15/17 14:56 Dose: 40 mg Heparin Sodium (Porcine) (Heparin Sodium) 0 units IVPUSH Q6H PRN PRN Reason: Heparin bolus protocol per PTT Heparin Sod,Pork In 0.45% Nacl (Heparin-1/2ns 25,000 Units/500) 25,000 unit in 500 mls @ 54.36 mls/hr IV TITRATE [facility]; Protocol Last Admin: 07/16/17 05:41 Dose: 16 units/kg/hr, 48.32 mls/hr Insulin Aspart (Novolog) 0 unit SUBCUT TIDAC [facility]; Protocol Last Admin: 07/15/17 20:40 Dose: Not Given Insulin Detemir (Levemir) 40 unit SUBCUT BEDTIME [facility] Last Admin: 07/15/17 22:26 Dose: 40 units Ketoconazole (Nizoral 2% Crm) 0 gm TOP BID [facility] Last Admin: 07/15/17 22:28 Dose: 1 applic Losartan Potassium (Cozaar) 100 mg PO DAILY [facility] Last Admin: 07/15/17 08:07 Dose: 100 mg Methylprednisolone Sodium Succinate (Solu-Medrol) 125 mg IVPUSH Q12H [facility] Last Admin: 07/16/17 01:32 Dose: 125 mg Nystatin (Nystop) 1 gm TOP QID [facility] Last Admin: 07/16/17 05:51 Dose: 1 applic Ondansetron HCl (Zofran) 4 mg IVPUSH Q4H PRN PRN Reason: Nausea Oxybutynin 5 Mg Er 1 each PO DAILY [facility] Last Admin: 07/15/17 08:21 Dose: Not Given Sodium Chloride (Saline Flush) 10 ml FLUSH ASDIRECTED PRN PRN Reason: Keep Vein Open Sodium Chloride (Saline Flush) 2.5 ml FLUSH ASDIRECTED PRN PRN Reason: Keep Vein Open Spironolactone (Aldactone) 25 mg PO DAILY [facility] Last Admin: 07/15/17 08:07 Dose: 25 mg Discontinued Medications Furosemide (Lasix) 40 mg IVPUSH NOW ONE Stop: 07/12/17 11:47 Last Admin: 07/12/17 12:02 Dose: 40 mg Furosemide (Lasix) 40 mg IVPUSH BIDDIURETIC [facility] Last Admin: 07/15/17 08:13 Dose: 40 mg Furosemide (Lasix) 40 mg IVPUSH NOW ONE Stop: 07/12/17 18:01 Last Admin: 07/12/17 17:30 Dose: 40 mg Furosemide (Lasix) 40 mg IVPUSH TID [facility] Last Admin: 07/15/17 15:15 Dose: Not Given Heparin Sodium (Porcine) (Heparin Sodium) 5,000 units SUBCUT Q12H [facility] Last Admin: 07/15/17 14:57 Dose: 5,000 units Heparin Sodium (Porcine) (Heparin Sodium) 5,000 units IVPUSH .BOLUS ONE Stop: 07/15/17 17:16 Last Admin: 07/15/17 18:33 Dose: 5,000 units - Exam General: Alert, Oriented, Cooperative, No Acute Distress Lungs: Clear to Auscultation, Normal Respiratory Effort Cardiovascular: Regular Rate, Regular Rhythm, No Murmurs GI/Abdominal Exam: Normal Bowel Sounds, Soft, Non-Tender, No Organomegaly, No Distention, No Abnormal Bruit, No Mass, Pelvis Stable (Male) Exam: Other (batres in place, hematuria noted intermittently. Reports he tried standing up and ambulating per self and he realized it was there, tugging slightly on batres ) Back Exam: Normal Inspection, Full Range of Motion Extremities: Normal Range of Motion, Non-Tender, Normal Capillary Refill, Pedal Edema (+2-3 edema to lower legs. ) Neurological: No New Focal Deficit Psy/Mental Status: Alert, Normal Affect, Normal Mood - Problem List & Annotations (1) CHF exacerbation SNOMED Code(s): 79379671 Code(s): I50.9 - HEART FAILURE, UNSPECIFIED Status: Suspected Current Visit: Yes Qualifiers: Heart failure type: unspecified Qualified Code(s): I50.9 - Heart failure, unspecified (2) Dyspnea SNOMED Code(s): 689174349 Code(s): R06.00 - DYSPNEA, UNSPECIFIED Status: Acute Current Visit: Yes Qualifiers: Dyspnea type: dyspnea on exertion Qualified Code(s): R06.09 - Other forms of dyspnea (3) Hypoxia SNOMED Code(s): 441872929 Code(s): R09.02 - HYPOXEMIA Status: Acute Current Visit: Yes (4) A-fib SNOMED Code(s): 30962615 Code(s): I48.91 - UNSPECIFIED ATRIAL FIBRILLATION Status: Chronic Current Visit: No Qualifiers: Atrial fibrillation type: paroxysmal Qualified Code(s): I48.0 - Paroxysmal atrial fibrillation (5) DM type 2 (diabetes mellitus, type 2) SNOMED Code(s): 59163277 Code(s): E11.9 - TYPE 2 DIABETES MELLITUS WITHOUT COMPLICATIONS Status: Chronic Current Visit: No Qualifiers: Diabetes mellitus mcfp insulin use: with terminal gauger use Diabetes mellitus complication status: without complication Qualified Code(s): E11.9 - Type 2 diabetes mellitus without complications; Z79.4 - half-way (current) use of insulin (6) HTN (hypertension) SNOMED Code(s): 47556862 Code(s): I10 - ESSENTIAL (PRIMARY) HYPERTENSION Status: Chronic Current Visit: No Qualifiers: Hypertension type: essential hypertension Qualified Code(s): I10 - Essential (primary) hypertension (7) Morbid obesity with BMI of 50.0-59.9, adult SNOMED Code(s): 901642169 Code(s): E66.01 - MORBID (SEVERE) OBESITY DUE TO EXCESS CALORIES; Z68.43 - BODY MASS INDEX (BMI) 50-59.9 , ADULT Status: Acute Current Visit: Yes - Problem List Review Problem List Initiated/Reviewed/Updated: Yes - My Orders Last 24 Hours: My Active Orders 07/15/17 14:30 RT Aerosol Therapy [RC] ASDIRECTED Lung Vent & Perf Quantative [NM] Routine methylPREDNISolone Sod Succ [Solu-MEDROL] 125 mg IVPUSH Q12H 07/15/17 14:35 Furosemide [Lasix] 40 mg IVPUSH BIDDIURETIC 07/15/17 17:15 Heparin Sod,Pork In 0.45% Nacl [Heparin-1/2Ns 25,000 Units/500] 25,000 unit in 500 ml IV TITRATE 07/15/17 17:17 Heparin Sodium 0 units IVPUSH Q6H PRN 07/15/17 17:25 Venous Doppler Lwr Ext Bi [US] Routine 07/15/17 18:00 Albuterol/Ipratropium [DuoNeb 3.0-0.5 MG/3 ML] 3 ml NEB Q6HRRT 05/15/18 05:11 BASIC METABOLIC PANEL,BMP [CHEM] AM CBC WITH AUTO DIFF [HEME] AM MG [MAGNESIUM] [CHEM] AM 07/16/17 06:30 PTT,PARTIAL THROMBOPLSTIN TIME [COAG] Q6H 07/16/17 12:30 PTT,PARTIAL THROMBOPLSTIN TIME [COAG] Q6H 07/16/17 18:30 PTT,PARTIAL THROMBOPLSTIN TIME [COAG] Q6H 07/17/17 05:11 BASIC METABOLIC PANEL,BMP [CHEM] AM CBC WITH AUTO DIFF [HEME] AM MG [MAGNESIUM] [CHEM] AM 07/18/17 05:11 BASIC METABOLIC PANEL,BMP [CHEM] AM CBC WITH AUTO DIFF [HEME] AM MG [MAGNESIUM] [CHEM] AM - Plan Plan:: This 76 year old male with history of DM Type 2, HTN, HFpEF admitted for Acute hypoxic respiratory failure presumed secondary to CHF exacerbation 1. CHF exacerbation: Suspected, ECHO back today, reveals EF 55%, poor study. mild aortic valve sclerosis without stenosis, trace MR, mild tricuspid regurgitation, R ventricular systolic pressure is moderately elevate 48.7, improvement of pulmonary pressure when compared to 07/2016 ECHO. Rhythm noted to be atrial fib. Continue to diurese with Lasix 40 mg IV BID. Spoke with Dr Rajput over the phone, his recommendations were to rule out COPD and PE. VQ scan to be done today. Bilateral lower leg doppler negative for DVTs. Strict I/O, daily weights. Batres for strict I/O. Low Na diet with 2 L FR. He is diuresing well, neg 2 L in the last [address] of chest revealed possible COPD, no infiltrates noted. Solumedrol was started yesterday, Giovani denies any improvement in dyspnea today. Continues to require 3.5 L NC. Could be a mixed picture of CHF and COPD, but awaiting VQ scan today to evaluate for PE. 2. HTN: Continue Losartan and Spironolactone. Monitor 3. Dm type 2: Continue Levemir at bedtime. hold Metformin during stay. Novolog SSI with meals. 4. Afib: History unknown Currently SR on telemetry. Spoke with Giovani regarding anticoagulation. Continue to Monitor Heparin gtt. Will need to be transitioned to PO even if PE ruled out due to CHADS VASC score of 3. 5. R knee pain: Better, no fractures noted on Xray, small joint effusion. Able to ambulate. No erythema. VTE prophylaxis: Heparin gtt started yesterday due to ruling out PE and anticoagulation for afib Dispo: 2-3 days pending improvement.
[2017-07-16] MEDS: Insulin Aspart 100 Units/ML 3 ML Pen SUBCUT SCH ×2 (07:13→12:00)
[2017-07-16] MEDS: Spironolactone 25 MG Tab PO SCH (08:20)
[2017-07-16] MEDS: Losartan 50 MG Tab PO SCH (08:20)
[2017-07-16] MEDS: Furosemide 40 MG/4 ML VIAL IVPUSH SCH ×2 (08:21→13:55)
[2017-07-16] MEDS: Aspirin 325 MG Tab.EC PO SCH (08:21)
[2017-07-16] MEDS: OXYBUTYNIN 5 MG PO SCH (08:27)
--- NOTE | 2017-07-16 11:24 | ECHO ---
The echocardiogram report can be seen in this patient's EMR (Electronic Medical Record) in the Reports section. The echocardiogram report has also been scanned into PACS and can be seen there as well. ELSA
[2017-07-16 11:59] VITALS: BP 137/79
[2017-07-16] MEDS ORDERED: Warfarin 10 MG Tab PO SCH (14:00)
--- NOTE | 2017-07-16 14:03 | NM ---
EXAMINATION: NM ventilation/perfusion study HISTORY: Dyspnea COMPARISON: Chest radiograph from the same day TECHNIQUE: Multiplanar imaging obtained of the chest following the administration of 4.3 mCi techneti um 99m labeled MAA and 39.6 mCi of technetium 99m labeled DTPA. Lateral imaging was unable to be obta ined due to patient size. FINDINGS: The ventilation imaging is heterogeneous, more so within the perfusion imaging. No segmenta l perfusion defect identified. No definite mismatch is noted. IMPRESSION: Low probability for a pulmonary embolism. However there is Suboptimal ventilation imaging .
--- NOTE | 2017-07-16 14:04 | CR ---
EXAMINATION: Portable chest radiograph. HISTORY: VQ scan. Comparison: 07/13/2017 FINDINGS: The trachea is midline. The cardiomediastinal silhouette is within normal limits. Trace left basilar infiltrate or atelectasis. No pleural effusion or pneumothorax. Osseous structures appear unremarkable. IMPRESSION: Trace left basilar atelectasis and/or infiltrate
--- NOTE | 2017-07-16 14:35 | PCM.DCSUM1 ---
Discharge Summary - Hospital Course Brief History: This 76 year old male with pmh of obesity, HTN, paroxysmal afib, peripheral edema, DM type 2 and hx R TKA in 2017 presented initially to scheduled appointment at [facility] today and was noted to be more dyspneic and hypoxic, sating low 80s on room air. He has not taken his medications for nearly 4 days. He was directed to the ED for further evaluation and treatment. He reports the shortness of breath has been going on for some time, no exactly sure when it started. Reports he normally can not lay flat and becomes short of breath if he does. He also has stable lower leg peripheral edema. He reports no chest pain, but it hurts intermittently when he coughs. No chest pain with activity. He denies fevers, chills, abdominal pain. Reports loose stools most days from Metformin. No urinary symptoms. No headaches or blurred vision and no focal neurologic deficits. In the ED no leukocytosis noted, hgb 11.7, Plat 224 , Na 144, K+ 4.4 Bicarb 32.6, BUN 15, Cr 1.8, which is slightly elevated from baseline. Glucose 145. CXR ngative. EKG SR no ischemic changes. Troponin negative. BNP 374. He was noted to be 83% on RA with some tachypnea. Other vital signs stable. He was given Lasix 40mg IV in the ED. He will be admitted for dyspnea and possible CHF exacerbation. PCP, [facility]. - Discharge Data Discharge Date: 07/16/17 Discharge Disposition: Home, Self-Care 01 Condition: Stable - Discharge Diagnosis/Problem(s) (1) CHF exacerbation SNOMED Code(s): 10396164 ICD Code: I50.9 - HEART FAILURE, UNSPECIFIED Status: Suspected Current Visit: Yes Qualifiers: Heart failure type: unspecified Qualified Code(s): I50.9 - Heart failure, unspecified (2) COPD (chronic obstructive pulmonary disease) SNOMED Code(s): 64623700 ICD Code: J44.9 - CHRONIC OBSTRUCTIVE PULMONARY DISEASE, UNSPECIFIED Status : Suspected Current Visit: Yes (3) Dyspnea SNOMED Code(s): 148635971 ICD Code: R06.00 - DYSPNEA, UNSPECIFIED Status: Acute Current Visit: Yes Qualifiers: Dyspnea type: dyspnea on exertion Qualified Code(s): R06.09 - Other forms of dyspnea (4) Hypoxia SNOMED Code(s): 369574451 ICD Code: R09.02 - HYPOXEMIA Status: Acute Current Visit: Yes (5) A-fib SNOMED Code(s): 75647551 ICD Code: I48.91 - UNSPECIFIED ATRIAL FIBRILLATION Status: Chronic Current Visit: No Qualifiers: Atrial fibrillation type: paroxysmal Qualified Code(s): I48.0 - Paroxysmal atrial fibrillation (6) DM type 2 (diabetes mellitus, type 2) SNOMED Code(s): 39570238 ICD Code: E11.9 - TYPE 2 DIABETES MELLITUS WITHOUT COMPLICATIONS Status: Chronic Current Visit: No Qualifiers: Diabetes mellitus intermediate insulin use: with intermediate use Diabetes mellitus complication status: without complication Qualified Code(s): E11.9 - Type 2 diabetes mellitus without complications; Z79.4 - group home (current) use of insulin (7) HTN (hypertension) SNOMED Code(s): 91863811 ICD Code: I10 - ESSENTIAL (PRIMARY) HYPERTENSION Status: Chronic Current Visit: No Qualifiers: Hypertension type: essential hypertension Qualified Code(s): I10 - Essential (primary) hypertension (8) Morbid obesity with BMI of 50.0-59.9, adult SNOMED Code(s): 792205430 ICD Code: E66.01 - MORBID (SEVERE) OBESITY DUE TO EXCESS CALORIES; Z68.43 - BODY MASS INDEX (BMI) 50-59.9 , ADULT Status: Acute Current Visit: Yes - Patient Summary/Data Consults: Consultations 07/13/17 10:39 PT Evaluation and Treatment [CONS] Routine - Discharge Plan Home Medications: Home Meds Losartan Potassium 100 mg PO DAILY 07/05/16 [History] Aspirin [Ecotrin] 325 mg PO Q24H 07/16/16 [History] Furosemide [Lasix] 80 mg PO BID 07/12/17 [History] Insulin Detemir [Levemir Flextouch] 40 unit SUBCUT BEDTIME 07/12/17 [History] Oxybutynin [Oxybutynin ER] 5 mg PO DAILY 07/12/17 [History] Spironolactone [Aldactone] 25 mg PO DAILY 07/12/17 [History] metFORMIN HCl [Metformin HCl ER] 1,000 mg PO BIDMEALS 07/12/17 [History] Acetaminophen [Tylenol] 650 mg PO Q4H PRN tablet 07/16/17 [Rx] Albuterol/Ipratropium [DuoNeb 3.0-0.5 MG/3 ML] 3 ml NEB Q6HRRT neb 07/16/17 [Rx ] Furosemide [Lasix] 40 mg IVPUSH BIDDIURETIC vial 07/16/17 [Rx] Insulin Aspart [NovoLOG] 0 unit SUBCUT TIDAC pen 07/16/17 [Rx] Ketoconazole [Nizoral 2% Crm] 1 applic TOP BID tube 07/16/17 [Rx] Referrals: PCP,None [Primary Care Provider] - - Discharge Summary/Plan Comment DC Time >30 min.: Yes (Approximately 45 minutes in discussion with [facility] and [facility]) Discharge Summary/Plan Comment: Discharge Diagnoses: CHF- suspected COPD-suspected Dyspnea Hypoxia- requiring 3.5 L NC Peripheral edema-worsening Paroxysmal Afib DM type 2 HTN Obesity Non compliance with medications Giovani was admitted for dyspnea and hypoxia with suspected CHF exacerbation based on clinical findings. ECHO was obtained which revealed EF 55%, poor study images. mild aortic valve sclerosis without stenosis, trace MR, mild tricuspid regurgitation, R ventricular systolic pressure is moderately elevated 48.7 mmHg , improvement of pulmonary pressure when compared to 07/2016 ECHO. Cardiology was unavailable for consult, but I did speak with Dr Rajput over the phone, who recommended ruling out PE and COPD. Diuresis was continued with Furosemide 40 mg IV BID, with 1500 ml diuresis daily, without improvement in dyspnea or hypoxia. Unable to obtain CT angio due to renal function. 07/[address] on without contrast revealed no acute cardio-pulmonary process noted, trachea has saber-sheath appearance suggesting COPD, correlate clinically. coronary artery calcifications note within LAD, hypodense blood to myocardium suggesting anemia. Solumedrol 125 mg IV Q12h was started yesterday afternoon, which patient has not shown much improvement as well since this starting. Patient has not had any wheezing noted. Hypxia remains low 80s on RA and need 3.5 L NC to keep sats 90% or above. Giovani has no history of needing oxygen or history of COPD. He does reports smoking for many years, but quit 14 years ago. Heparin gtt was started yesterday due to concern of PE. Today VQ scan was obtained, which revealed low probability for PE, but suboptimal imaging for ventilation. Coumadin was started today due to the need for chronic anticoagulation with paroxysmal afib. Intermittent Afib noted here with scare elevations to 110s then return to SR. No rate controlling medication started at this time. May consider beta terri. [facility] has requested transfer due to longer stay and further evaluation. I spoke with Dr Loza this afternoon regarding evaluation completed here and imaging. He has accepted patient for transfer to [facility] at this time. Patient will be taken by EMS this afternoon. Del is aware and is agreeable for transfer. - General Info Date of Service: 07/16/17 Subjective Update: Feeling ok this afternoon, continues to have dyspnea and hypoxia. Notified of confirmed transfer to [facility], he is aware and agreeable. Sister brought suitcase of personal belongings this morning in preparation. Denies chest pain or palpitations. No pain currently. [place] in place for strict I/O monitoring. Functional Status: Reports: Pain Controlled, Tolerating Diet, Ambulating, New Symptoms, Incentive Spirometry - Review of Systems General: Reports: No Symptoms. Denies: Fever, Weakness, Fatigue HEENT: Reports: No Symptoms. Denies: Headaches, Sinus Congestion, Sore Throat Pulmonary: Reports: Shortness of Breath. Denies: Cough, Sputum Cardiovascular: Reports: Dyspnea on Exertion, Edema. Denies: Chest Pain Gastrointestinal: Reports: No Symptoms Genitourinary: Reports: No Symptoms. Denies: Dysuria, Frequency, Burning Skin: Reports: No Symptoms Neurological: Reports: No Symptoms Psychiatric: Reports: No Symptoms - Patient Data Vitals - Most Recent: Last Vital Signs Temp 98.8 F 07/16/17 11:58 Pulse 88 07/16/17 11:58 Resp 18 07/16/17 11:58 BP 137/79 07/16/17 11:58 Pulse Ox 91 L 07/16/17 11:58 Weight - Most Recent: 149.9 kg I&O - Last 24 hours: Intake & Output 07/15/17 07/16/17 07/16/17 22:59 06:59 14:59 Intake Total 1000 1000 Output Total 2700 1400 Balance -1700 -400 Lab Results - Last 24 hrs: Laboratory Results - last 24 hr 07/15/17 07/15/17 07/15/17 Range/Units 16:05 17:29 21:33 WBC (4.0-11.0) K/uL RBC (4.50-5.90) M/uL Hgb (13.0-17.0) g/dL Hct (38.0-50.0) % MCV (80.0-98.0) fL MCH (27.0-32.0) pg MCHC (31.0-37.0) g/dL RDW Std Deviation (28.0-62.0) fl RDW Coeff of [place] (11.0-15.0) % Plt Count (150-400) K/uL MPV (7.40-12.00) fL Neut % (Auto) (48.0-80.0) % Lymph % (Auto) (16.0-40.0) % [place] % (Auto) (0.0-15.0) % Eos % (Auto) (0.0-7.0) % Baso % (Auto) (0.0-1.5) % Neut # (Auto) (1.4-5.7) K/uL Lymph # (Auto) (0.6-2.4) K/uL Weak[place] # (Auto) (0.0-0.8) K/uL Eos # (Auto) (0.0-0.7) K/uL Baso # (Auto) (0.0-0.1) K/uL Nucleated RBC % /100WBC Nucleated RBCs # K/uL APTT 27.7 (18.6-31.3) SEC Sodium (136-148) mmol/L Potassium (3.5-5.1) mmol/L Chloride (98-107) mmol/L Carbon Dioxide (21.0-32.0) mmol/L BUN (7.0-18.0) mg/dL Creatinine (0.8-1.3) mg/dL Est Cr Clr Drug Dosing mL/min Estimated GFR (MDRD) ml/min Glucose (74-106) mg/dL POC Glucose 137 H 200 H (60-110) mg/dL Calcium (8.5-10.1) mg/dL Magnesium (1.5-2.0) mg/dL 07/16/17 07/16/17 07/16/17 Range/Units 00:30 06:11 06:20 WBC 6.44 (4.0-11.0) K/uL RBC 5.07 (4.50-5.90) M/uL Hgb 11.2 L (13.0-17.0) g/dL Hct 39.3 (38.0-50.0) % MCV 77.5 L (80.0-98.0) fL MCH 22.1 L (27.0-32.0) pg MCHC 28.5 L (31.0-37.0) g/dL RDW Std Deviation 51.1 (28.0-62.0) fl RDW Coeff of [place] 18 H (11.0-15.0) % Plt Count 183 (150-400) K/uL MPV 9.70 (7.40-12.00) fL Neut % (Auto) 90.9 H (48.0-80.0) % Lymph % (Auto) 8.1 L (16.0-40.0) % [place] % (Auto) 0.8 (0.0-15.0) % Eos % (Auto) 0.0 (0.0-7.0) % Baso % (Auto) 0.2 (0.0-1.5) % Neut # (Auto) 5.9 H (1.4-5.7) K/uL Lymph # (Auto) 0.5 L (0.6-2.4) K/uL Weak[place] # (Auto) 0.1 (0.0-0.8) K/uL Eos # (Auto) 0.0 (0.0-0.7) K/uL Baso # (Auto) 0.0 (0.0-0.1) K/uL Nucleated RBC % 0.0 /100WBC Nucleated RBCs # 0 K/uL APTT 79.3 H (18.6-31.3) SEC Sodium (136-148) mmol/L Potassium (3.5-5.1) mmol/L Chloride (98-107) mmol/L Carbon Dioxide (21.0-32.0) mmol/L BUN (7.0-18.0) mg/dL Creatinine (0.8-1.3) mg/dL Est Cr Clr Drug Dosing mL/min Estimated GFR (MDRD) ml/min Glucose (74-106) mg/dL POC Glucose 193 H (60-110) mg/dL Calcium (8.5-10.1) mg/dL Magnesium (1.5-2.0) mg/dL 07/16/17 07/16/17 07/16/17 Range/Units 06:20 06:20 11:23 WBC (4.0-11.0) K/uL RBC (4.50-5.90) M/uL Hgb (13.0-17.0) g/dL Hct (38.0-50.0) % MCV (80.0-98.0) fL MCH (27.0-32.0) pg MCHC (31.0-37.0) g/dL RDW Std Deviation (28.0-62.0) fl RDW Coeff of [place] (11.0-15.0) % Plt Count (150-400) K/uL MPV (7.40-12.00) fL Neut % (Auto) (48.0-80.0) % Lymph % (Auto) (16.0-40.0) % [place] % (Auto) (0.0-15.0) % Eos % (Auto) (0.0-7.0) % Baso % (Auto) (0.0-1.5) % Neut # (Auto) (1.4-5.7) K/uL Lymph # (Auto) (0.6-2.4) K/uL Weak[place] # (Auto) (0.0-0.8) K/uL Eos # (Auto) (0.0-0.7) K/uL Baso # (Auto) (0.0-0.1) K/uL Nucleated RBC % /100WBC Nucleated RBCs # K/uL APTT 87.5 H (18.6-31.3) SEC Sodium 141 (136-148) mmol/L Potassium 4.0 (3.5-5.1) mmol/L Chloride 102 (98-107) mmol/L Carbon Dioxide 34.9 H (21.0-32.0) mmol/L BUN 28 H (7.0-18.0) mg/dL Creatinine 1.8 H (0.8-1.3) mg/dL Est Cr Clr Drug Dosing 34.37 mL/min Estimated GFR (MDRD) 36.8 ml/min Glucose 195 H (74-106) mg/dL POC Glucose 207 H (60-110) mg/dL Calcium 9.1 (8.5-10.1) mg/dL Magnesium 1.9 (1.5-2.0) mg/dL 07/16/17 Range/Units 13:10 WBC (4.0-11.0) K/uL RBC (4.50-5.90) M/uL Hgb (13.0-17.0) g/dL Hct (38.0-50.0) % MCV (80.0-98.0) fL MCH (27.0-32.0) pg MCHC (31.0-37.0) g/dL RDW Std Deviation (28.0-62.0) fl RDW Coeff of [place] (11.0-15.0) % Plt Count (150-400) K/uL MPV (7.40-12.00) fL Neut % (Auto) (48.0-80.0) % Lymph % (Auto) (16.0-40.0) % [place] % (Auto) (0.0-15.0) % Eos % (Auto) (0.0-7.0) % Baso % (Auto) (0.0-1.5) % Neut # (Auto) (1.4-5.7) K/uL Lymph # (Auto) (0.6-2.4) K/uL [place] # (Auto) (0.0-0.8) K/uL Eos # (Auto) (0.0-0.7) K/uL Baso # (Auto) (0.0-0.1) K/uL Nucleated RBC % /100WBC Nucleated RBCs # K/uL APTT 109.9 H (18.6-31.3) SEC Sodium (136-148) mmol/L Potassium (3.5-5.1) mmol/L Chloride (98-107) mmol/L Carbon Dioxide (21.0-32.0) mmol/L BUN (7.0-18.0) mg/dL Creatinine (0.8-1.3) mg/dL Est Cr Clr Drug Dosing mL/min Estimated GFR (MDRD) ml/min Glucose (74-106) mg/dL POC Glucose (60-110) mg/dL Calcium (8.5-10.1) mg/dL Magnesium (1.5-2.0) mg/dL Med Orders - Current: Current Medications Acetaminophen (Tylenol) 650 mg PO Q4H PRN PRN Reason: Pain (mild 1-3) Albuterol/Ipratropium (Duoneb 3.0-0.5 Mg/3 Ml) 3 ml NEB Q6HRRT [facility] Last Admin: 07/16/17 11:13 Dose: 3 ml Aspirin (Ecotrin) 325 mg PO DAILY [facility] Last Admin: 07/16/17 08:21 Dose: 325 mg Furosemide (Lasix) 40 mg IVPUSH BIDDIURETIC [facility] Last Admin: 07/16/17 13:55 Dose: 40 mg Insulin Aspart (Novolog) 0 unit SUBCUT TIDAC [facility]; Protocol Last Admin: 07/16/17 12:00 Dose: 2 unit Insulin Detemir (Levemir) 40 unit SUBCUT BEDTIME [facility] Last Admin: 07/15/17 22:26 Dose: 40 units Ketoconazole (Nizoral 2% Crm) 0 gm TOP BID [facility] Last Admin: 07/16/17 08:27 Dose: 1 applic Losartan Potassium (Cozaar) 100 mg PO DAILY [facility] Last Admin: 07/16/17 08:20 Dose: 100 mg Methylprednisolone Sodium Succinate (Solu-Medrol) 125 mg IVPUSH Q12H [facility] Last Admin: 07/16/17 13:54 Dose: 125 mg Nystatin (Nystop) 1 gm TOP QID [facility] Last Admin: 07/16/17 11:02 Dose: 1 applic Ondansetron HCl (Zofran) 4 mg IVPUSH Q4H PRN PRN Reason: Nausea Oxybutynin 5 Mg Er 1 each PO DAILY [facility] Last Admin: 07/16/17 08:27 Dose: Not Given Sodium Chloride (Saline Flush) 10 ml FLUSH ASDIRECTED PRN PRN Reason: Keep Vein Open Sodium Chloride (Saline Flush) 2.5 ml FLUSH ASDIRECTED PRN PRN Reason: Keep Vein Open Spironolactone (Aldactone) 25 mg PO DAILY [facility] Last Admin: 07/16/17 08:20 Dose: 25 mg Discontinued Medications Furosemide (Lasix) 40 mg IVPUSH NOW ONE Stop: 07/12/17 11:47 Last Admin: 07/12/17 12:02 Dose: 40 mg Furosemide (Lasix) 40 mg IVPUSH BIDDIURETIC [facility] Last Admin: 07/15/17 08:13 Dose: 40 mg Furosemide (Lasix) 40 mg IVPUSH NOW ONE Stop: 07/12/17 18:01 Last Admin: 07/12/17 17:30 Dose: 40 mg Furosemide (Lasix) 40 mg IVPUSH TID [facility] Last Admin: 07/15/17 15:15 Dose: Not Given Heparin Sodium (Porcine) (Heparin Sodium) 5,000 units SUBCUT Q12H [facility] Last Admin: 07/15/17 14:57 Dose: 5,000 units Heparin Sodium (Porcine) (Heparin Sodium) 5,000 units IVPUSH .BOLUS ONE Stop: 07/15/17 17:16 Last Admin: 07/15/17 18:33 Dose: 5,000 units Heparin Sodium (Porcine) (Heparin Sodium) 0 units IVPUSH Q6H PRN PRN Reason: Heparin bolus protocol per PTT Heparin Sod,Pork In 0.45% Nacl (Heparin-1/2ns 25,000 Units/500) 25,000 unit in 500 mls @ 54.36 mls/hr IV TITRATE [facility]; Protocol Last Titration: 07/16/17 07:42 Dose: 14 units/kg/hr, 42.28 mls/hr Warfarin Sodium (Coumadin) 10 mg PO 07/16/17@1400 [facility] Stop: 07/16/17 14:01 Last Admin: 07/16/17 14:00 Dose: 10 mg - Exam Quality Assessment: Reports: Supplemental Oxygen, DVT Prophylaxis General: Reports: Alert, Oriented, Cooperative, No Acute Distress Neck: Reports: Supple. Denies: Lymphadenopathy Lungs: Reports: Normal Respiratory Effort (dyspnea noted with exertion and speech), Decreased Breath Sounds (bibasilar) Cardiovascular: Reports: Regular Rate, Regular Rhythm. Denies: Murmurs GI/Abdominal Exam: Normal Bowel Sounds, Soft, Non-Tender, No Organomegaly, No Distention, No Abnormal Bruit, No Mass, Pelvis Stable Back Exam: Reports: Normal Inspection, Full Range of Motion Extremities: Pedal Edema (+2-3 pitting edema to BLE) Neurological: Reports: No New Focal Deficit Psy/Mental Status: Reports: Alert, Normal Affect, Normal Mood
--- NOTE | 2017-07-16 14:49 | US ---
EXAM DATE: 07/12/17 PATIENT'S AGE: 76 Patient: LEANNE DAY Facility: [place], [place] Site . Site : [id number] Study: US Extremity Bilateral [id number]/15/2017 8:31:55 PM Ordering Physician: Ashwin Delatorre Final Report: INDICATION: Bilateral lower leg edema TECHNIQUE: Ultrasound venous duplex bilateral lower extremities. Singh-scale, color Doppler, and spectral Doppler imaging were performed with compression and augmentation. COMPARISON: None FINDINGS: Moderate degradation of image quality noted due to body habitus. Deep veins: The bilateral femoral, common femoral, popliteal, and visualized calf veins are fully compressible, demonstrate normal color flow, and normal response to mechanical augmentation. The Duplex Doppler waveforms are normal in appearance. Superficial veins: The visualized greater saphenous and superficial veins of the leg and calf are unremarkable. Soft tissues: No masses or cysts are identified. No adenopathy is seen. IMPRESSION: 1. No sonographic evidence of deep venous thrombosis seen in either lower extremities. Dictated by: Kip Carrasquillo MD @ 07/15/2017 22:46:33 (Electronic Signature) Report Signed by Proxy. ELSA
== END 2017-07-16 15:55 | DRG 292 ==
LOC: MW.ED 11:30 → MW.MS 12:47 → UNDOADMIN 12:58
PROVIDERS: ADMIT Family Medicine; ATTEND Family Medicine
DX: I50.9 Heart failure, unspecified (principal); Z68.43 Body mass index [BMI] 50.0-59.9, adult; J44.9 Chronic obstructive pulmonary disease, unspecified; R06.09 Other forms of dyspnea; R09.02 Hypoxemia; I48.0 Paroxysmal atrial fibrillation; D64.9 Anemia, unspecified; E66.01 Morbid (severe) obesity due to excess calories; R60.9 Edema, unspecified; Z91.14 Patient's other noncompliance with medication regimen; Z79.899 Other long term (current) drug therapy; Z88.5 Allergy status to narcotic agent; Z87.891 Personal history of nicotine dependence
CPT/HCPCS: 36415; 51702; 71045; 71045-26; 71046; 71046-26; 71250; 71250-26; 73562-26-RT; 73562-RT; 78582; 78582-26; 78598-26; 80048; 80053; 81001; 82570; 82962; 83036; 83735; 83880; 84156; 84300; 84484; 85025; 85730; 93005; 93306; 93970; 93970-26; 94640; 96374; 97161-GP; 97530-GP; 99285-25; A9270-GY; A9540; A9567; G0103; J1644; J1815-GY ×2; J1940; J2930

== ENCOUNTER 2018-05-22 09:27 | Observation (INO) | payer MEDICARE, OTHER ==
--- NOTE | 2018-05-22 09:42 | EDM.PDOC ---
ED HPI GENERAL MEDICAL PROBLEM - General Chief Complaint: Lower Extremity Injury/Pain Stated Complaint: PAIN IN RIGHT LEG Time Seen by Provider: 05/22/18 09:41 Source of Information: Reports: Patient - History of Present Illness INITIAL COMMENTS - FREE TEXT/NARRATIVE: HISTORY AND PHYSICAL: History of present illness: [Patient presents with right lower extremity pain in the knee to the ankle he does have calf tenderness as well as point tenderness midshaft tibia and has complained of knee pain there is no pain at rest although he is unable to stand and bear weight at home, he fears that if he were to fall he would not be able to get up. After initial physical exam and imaging I do not find any abnormality and the labs are unchanged from previous I did try to ambulate the patient he did not necessarily complain of pain on standing the stated he felt as if her knee were going to buckle promptly sat back down No fever nausea vomiting chills sweats no chest pain shortness breath headache dizziness or palpitation no bowel or urine symptoms ] Review of systems: As per history of present illness and below otherwise all systems reviewed and negative. Past medical history: As per history of present illness and as reviewed below otherwise noncontributory. Surgical history: As per history of present illness and as reviewed below otherwise noncontributory. Social history: No reported history of drug or alcohol abuse. Family history: As per history of present illness and as reviewed below otherwise noncontributory. Physical exam: HEENT: Atraumatic, normocephalic, pupils reactive, negative for conjunctival pallor or scleral icterus, mucous membranes moist, throat clear, neck supple, nontender, trachea midline. Lungs: Clear to auscultation, breath sounds equal bilaterally, chest nontender. Heart: S1S2, regular, negative for clicks, rubs, or JVD. Abdomen: Soft, nondistended, nontender. Negative for masses or hepatosplenomegaly. Negative for costovertebral tenderness. Pelvis: Stable nontender. Genitourinary: Deferred. Rectal: Deferred. Extremities: Atraumatic, negative for cords or calf pain. Neurovascular unremarkable. Right knee no redness or tenderness is on exam painless range of motion passively limb is neurovascularly intact Neuro: Awake, alert, oriented. Cranial nerves II through XII unremarkable. Cerebellum unremarkable. Motor and sensory unremarkable throughout. Exam nonfocal. Diagnostics: [CBC CMP INR venous Doppler rule out DVT Tib-fib on the right ] Therapeutics: [] Impression: [Lab stable compared with previous ]Right lower extremity pain Chronic history of baseline Definitive disposition and diagnosis as appropriate pending reevaluation and review of above. right knee Pain Score (Numeric/FACES): 7 - Related Data Allergies Allergy/AdvReac Type Severity Reaction Status Date / Time morphine Allergy Itching Verified 07/12/17 11:52 Home Meds: Home Meds Losartan Potassium 100 mg PO DAILY 07/05/16 [History] Aspirin [Ecotrin] 325 mg PO Q24H 07/16/16 [History] Furosemide [Lasix] 40 mg PO BID 07/12/17 [History] Insulin Detemir [Levemir Flextouch] 40 unit SUBCUT BEDTIME 07/12/17 [History] Oxybutynin [Oxybutynin ER] 5 mg PO DAILY 07/12/17 [History] Spironolactone [Aldactone] 25 mg PO DAILY 07/12/17 [History] metFORMIN HCl [Metformin ER Osmotic] 1,000 mg PO BIDMEALS 07/12/17 [History] Acetaminophen [Tylenol] 650 mg PO Q4H PRN tablet 07/16/17 [Rx] Albuterol/Ipratropium [DuoNeb 3.0-0.5 MG/3 ML] 3 ml NEB Q6HRRT neb 07/16/17 [Rx ] Furosemide [Lasix] 40 mg IVPUSH BIDDIURETIC vial 07/16/17 [Rx] Insulin Aspart [NovoLOG] 0 unit SUBCUT TIDAC pen 07/16/17 [Rx] Ketoconazole [Nizoral 2% Crm] 1 applic TOP BID tube 07/16/17 [Rx] Ammonium Lactate 1 05/22/18 [History] Ferrous Sulfate 324 mg PO DAILY 05/22/18 [History] Finasteride 5 mg PO DAILY 05/22/18 [History] Insulin Degludec [Tresiba] 100 05/22/18 [History] Melatonin 5 mg PO DAILY 05/22/18 [History] Metoprolol Succinate 25 mg PO DAILY 05/22/18 [History] Pantoprazole [ProTONIX] 40 mg PO DAILY 05/22/18 [History] Potassium Chloride 20 meq PO DAILY 05/22/18 [History] Tamsulosin [Flomax] 0.4 mg PO DAILY 05/22/18 [History] Warfarin [Coumadin] 5 mg PO DAILY 05/22/18 [History] traZODone HCl [Trazodone HCl] 50 mg PO DAILY 05/22/18 [History] Past Medical History HEENT History: Reports: Hard of Hearing, Impaired Vision Other HEENT History: wears glasses, top denture, annalisa hearing aids Cardiovascular History: Reports: Afib, High Cholesterol, Hypertension, SOB on Exertion. Denies: Blood Clots/VTE/DVT Respiratory History: Reports: SOB. Denies: Sleep Apnea (but snores a lot at night) Gastrointestinal History: Reports: Other (See Below) Other Gastrointestinal History: occasional heartburn Genitourinary History: Reports: Renal Calculus Other Genitourinary History: hx kidney stones Musculoskeletal History: Reports: Arthritis Neurological History: Reports: None. Denies: CVA, TIA Psychiatric History: Reports: None Endocrine/Metabolic History: Reports: Diabetes, Type II, Obesity/BMI 30+ Hematologic History: Reports: None Immunologic History: Reports: None Oncologic (Cancer) History: Reports: None Dermatologic History: Reports: None - Past Surgical History Musculoskeletal Surgical History: Reports: Arthroscopic Knee, Knee Replacement ( July 2016) Social & Family History - Family History Family Medical History: Noncontributory - Caffeine Use Caffeine Use: Reports: Coffee - Living Situation & Occupation Living situation: Reports: Alone Occupation: Retired Review of Systems - Review of Systems Review Of Systems: See Below ED EXAM, GENERAL - Physical Exam Exam: See Below Course - Vital Signs Last Recorded V/S: Last Vital Signs Temp 97.8 F 05/22/18 09:41 Pulse 70 05/22/18 09:41 Resp 22 H 05/22/18 09:41 BP 113/45 L 05/22/18 09:41 Pulse Ox 97 05/22/18 09:41 - Orders/Labs/Meds Orders: Active Orders 24 hr Category Date Time Status Oxygen Therapy [RC] ASDIRECTED Care 05/22/18 10:08 Active Labs: Laboratory Tests 05/22/18 05/22/18 05/22/18 Range/Units 10:00 10:00 10:00 WBC 10.73 (4.0-11.0) K/uL RBC 3.33 L (4.50-5.90) M/uL Hgb 9.4 L (13.0-17.0) g/dL Hct 31.5 L (38.0-50.0) % MCV 94.6 (80.0-98.0) fL MCH 28.2 (27.0-32.0) pg MCHC 29.8 L (31.0-37.0) g/dL RDW Std Deviation 56.4 (28.0-62.0) fl RDW Coeff of [place] 16 H (11.0-15.0) % Plt Count 200 (150-400) K/uL MPV 10.00 (7.40-12.00) fL Add Manual Diff YES Neutrophils % (Manual) 77 (48.0-80.0) % Lymphocytes % (Manual) 19 (16.0-40.0) % Monocytes % (Manual) 4 (0.0-15.0) % Nucleated RBC % 0.0 /100WBC Absolute Seg Neuts 8.3 H (1.4-5.7) Lymphocytes # (Manual) 2.0 (0.6-2.4) Monocytes # (Manual) 0.4 (0.0-0.8) Nucleated RBCs # 0 K/uL INR 3.74 Sodium 144 (136-148) mmol/L Potassium 5.1 (3.5-5.1) mmol/L Chloride 106 (98-107) mmol/L Carbon Dioxide 34.7 H (21.0-32.0) mmol/L BUN 41 H (7.0-18.0) mg/dL Creatinine 2.1 H (0.8-1.3) mg/dL Est Cr Clr Drug Dosing 28.99 mL/min Estimated GFR (MDRD) 30.7 ml/min Glucose 162 H (74-106) mg/dL Calcium 8.6 (8.5-10.1) mg/dL Total Bilirubin 0.5 (0.2-1.0) mg/dL AST 12 L (15-37) IU/L ALT 11 L (14-63) IU/L Alkaline Phosphatase 87 (46-116) U/L Total Protein 6.2 L (6.4-8.2) g/dL Albumin 2.8 L (3.4-5.0) g/dL Globulin 3.4 (2.6-4.0) g/dL Albumin/Globulin Ratio 0.8 L (0.9-1.6) Departure - Departure Time of Disposition: 13:13 Disposition: Refer to Observation Condition: Fair Clinical Impression: Right leg pain - Discharge Information Referrals: Sesar Rankin MD [Primary Care Provider] - Forms: ED Department Discharge - My Orders Last 24 Hours: My Active Orders 05/22/18 10:08 Oxygen Therapy [RC] ASDIRECTED - Assessment/Plan Last 24 Hours: My Active Orders 05/22/18 10:08 Oxygen Therapy [RC] ASDIRECTED
--- NOTE | 2018-05-22 10:59 | CR ---
EXAMINATION: Right tibia and fibula HISTORY: Pain COMPARISON: None TECHNIQUE: AP and lateral views FINDINGS/IMPRESSION: Partially visualized right total knee hardware is demonstrated. There is no fracture or acute osseous abnormality. Mild generalized soft tissue swelling.
--- NOTE | 2018-05-22 11:25 | US ---
ULTRASOUND EXAMINATION OF the right lower extremity WITH DOPPLER HISTORY: Pain FINDINGS: Examination of the right leg was performed from the groin to the calf region. All visualized segments including common femoral, proximal greater saphenous, superficial femoral, popliteal and calf veins appear patent with good compressibility and augmentation. There is no evidence of deep vein thrombosis. IMPRESSION: No evidence of a DVT.
--- NOTE | 2018-05-22 12:17 | CR ---
EXAMINATION: Right knee HISTORY: Pain COMPARISON: 05/22/2018 TECHNIQUE: 2 views FINDINGS: Right total knee hardware is demonstrated in stable position and alignment. There is no fracture or acute osseous abnormality. Bone mineralization is normal. There is a small to moderate joint effusion. Mild generalized soft tissue swelling. IMPRESSION: 1. Small to moderate joint effusion without an acute osseous abnormality. 2. Stable right total knee hardware.
[2018-05-22] MEDS ORDERED: Acetaminophen 325 MG Tab PO PRN (15:25)
[2018-05-22] MEDS ORDERED: Sodium Chloride 0.9% 2.5 ML Syringe FLUSH PRN (15:25)
[2018-05-22] MEDS ORDERED: Ondansetron 4 MG/2 ML SDV IVPUSH PRN (15:25)
--- NOTE | 2018-05-22 16:13 | PCM.HP ---
<Joycelyn Dela Cruz M - Last Filed: 05/22/18 16:43> H&P History of Present Illness - General Date of Service: 05/22/18 Admit Problem/Dx: Admission Diagnosis/Problem Admission Diagnosis/Problem R Knee Pain Source of Information: Patient, Old Records History Limitations: Reports: No Limitations - History of Present Illness Initial Comments - Free Text/Narative: This 77 year old male with pmh of obesity, HTN, paroxysmal afib on Warfarin, peripheral edema, DM type 2 and hx of R TKA in 2017. He presented today to the ED with complaints of R knee pain and the inability to ambulate due to the pain and his knee giving out. He reports he has been doing well at home, no complaints of shortness of breath, no chest pain or abdominal pain. No black or blood BMs. No hematemesis. He reports he sleeps in his recliner, but at times lays in bed and that is flat No issues. Reports no increased lower leg swelling. He denies injury or falling to his R knee. He reports it started hurting two nights ago, he says it is sore around the knee cap and down. He denies fevers, chills. I spoke with his sister, who lives near him and organizes his medications. She reports he has been very sedentary this winter and has become weak due to not getting out and moving much. In the ED no leukocytosis noted, hgb 9.4. INR 3.74. BUN 41 Cr 2.1. R knee xray shows stable R knee hardware with small to moderate joint effusion. Doppler negative for DVT. He was going to be discharged home, but was unable to ambulate. ED recommended admission to have Dr Shubham Rankin evaluate knee and for physical deconditioning. PCP, Dr Reyna Rankin, [place] right knee Pain Score (Numeric/FACES): 7 - Related Data Allergies/Adverse Reactions: Allergies Allergy/AdvReac Type Severity Reaction Status Date / Time morphine Allergy Itching Verified 07/12/17 11:52 Home Medications: Home Meds Furosemide [Lasix] 80 mg PO BID 07/12/17 [History] Insulin Detemir [Levemir Flextouch] 55 unit SUBCUT BEDTIME 07/12/17 [History] Spironolactone [Aldactone] 12.5 mg PO DAILY 07/12/17 [History] Acetaminophen 500 mg PO Q6HR PRN 05/22/18 [History] Albuterol Sulfate 1 inh INH Q4H PRN 05/22/18 [History] Ammonium Lactate 1 applic TOP BID 05/22/18 [History] Aspirin [Halfprin] 81 mg PO DAILY 05/22/18 [History] Blood Sugar Diagnostic [Accu-Chek Suha Plus] 1 applic TOP ASDIRECTED 05/22/18 [ History] Budesonide/Formoterol [Symbicort 160-4.5 MCG] 2 inhalation INH Q12HR 05/22/18 [ History] Ferrous Sulfate 325 mg PO TID 05/22/18 [History] Finasteride 5 mg PO DAILY 05/22/18 [History] Insulin Aspart [NovoLOG] 10 unit SUBCUT TIDMEALS 05/22/18 [History] Lancets [Techlite Blood Lancet] 1 each MC ASDIRECTED 05/22/18 [History] Losartan [Cozaar] 100 mg PO DAILY 05/22/18 [History] Melatonin 5 mg PO BEDTIME 05/22/18 [History] Metoprolol Succinate 12.5 mg PO BID 05/22/18 [History] Pantoprazole [ProTONIX] 40 mg PO DAILY 05/22/18 [History] Potassium Chloride 20 meq PO DAILY 05/22/18 [History] Tamsulosin [Flomax] 0.4 mg PO BEDTIME 05/22/18 [History] Warfarin [Coumadin] 5 mg PO DAILY 05/22/18 [History] traZODone HCl [Trazodone HCl] 50 mg PO BEDTIME 05/22/18 [History] Past Medical History HEENT History: Reports: Hard of Hearing, Impaired Vision Other HEENT History: wears glasses, top denture, annalisa hearing aids Cardiovascular History: Reports: Afib, Heart Failure, High Cholesterol, Hypertension, SOB on Exertion. Denies: Blood Clots/VTE/DVT Respiratory History: Reports: SOB, Other (See Below) (Oxygen dependent, 2 L NC) Gastrointestinal History: Reports: Other (See Below) Other Gastrointestinal History: occasional heartburn Genitourinary History: Reports: Renal Calculus Musculoskeletal History: Reports: Arthritis, Osteoarthritis Neurological History: Reports: None. Denies: CVA Psychiatric History: Reports: None Endocrine/Metabolic History: Reports: Diabetes, Type II, Obesity/BMI 30+ Hematologic History: Reports: None Immunologic History: Reports: None Oncologic (Cancer) History: Reports: None Dermatologic History: Reports: None - Infectious Disease History Infectious Disease History: Reports: Chicken Pox, Measles, Mumps - Past Surgical History Head Surgeries/Procedures: Reports: None HEENT Surgical History: Reports: None Musculoskeletal Surgical History: Reports: Arthroscopic Knee, Knee Replacement Social & Family History - Family History Family Medical History: Noncontributory - Tobacco Use Smoking Status *Q: Former Smoker Used Tobacco, but Quit: Yes Month/Year Tobacco Last Used: 04/2001 Tobacco Use Comment: Quit 16 yrs ago Second Hand Smoke Exposure: No - Caffeine Use Caffeine Use: Reports: Coffee - Alcohol Use Alcohol Use History: No - Recreational Drug Use Recreational Drug Use: No - Living Situation & Occupation Living situation: Reports: Alone Occupation: Retired H&P Review of Systems - Review of Systems: Review Of Systems: See Below General: Reports: No Symptoms. Denies: Fever, Chills, Malaise, Weakness HEENT: Reports: No Symptoms. Denies: Headaches, Sinus Congestion, Sore Throat, Vertigo Pulmonary: Reports: No Symptoms. Denies: Shortness of Breath, Cough Cardiovascular: Reports: No Symptoms. Denies: Chest Pain, Dyspnea on Exertion, Orthopnea, Edema Gastrointestinal: Reports: No Symptoms. Denies: Black Stool, Bloody Stool, Nausea, Vomiting Genitourinary: Reports: No Symptoms. Denies: Dysuria, Frequency, Burning Musculoskeletal: Reports: Joint Pain (R knee pain) Skin: Reports: No Symptoms. Denies: Erythema Psychiatric: Reports: No Symptoms Neurological: Reports: No Symptoms Hematologic/Lymphatic: Reports: No Symptoms Immunologic: Reports: No Symptoms Exam - Exam Exam: See Below - Vital Signs Vital Signs: Last Vital Signs Temp 97.8 F 05/22/18 09:41 Pulse 69 05/22/18 14:00 Resp 18 05/22/18 14:00 BP 119/58 L 05/22/18 14:00 Pulse Ox 94 L 05/22/18 14:00 Weight: 296 kg - Exam General: Alert, Oriented, Cooperative HEENT: Conjunctiva Clear, Mucosa Moist & [place], Posterior Pharynx Clear Neck: Supple, Trachea Midline. No: JVD Lungs: Clear to Auscultation, Normal Respiratory Effort. No: Crackles, Wheezing Cardiovascular: Regular Rate, Regular Rhythm GI/Abdominal Exam: Normal Bowel Sounds, Soft, Non-Tender Extremities: Normal Inspection, Normal Range of Motion, Non-Tender, Normal Capillary Refill, Pedal Edema (+1 pitting edema bilateral lower legs), Joint Swelling (mild R knee swelling with tenderness surrounding knee. No crepitus noted.) Peripheral Pulses: 0: Carotid (L), Carotid (R), Brachial (L), Brachial (R), Radial (L), Radial (R), Femoral (L), Femoral (R), Popliteal (L), Popliteal (R), Posterior Tibial (L), Posterior Tibial (R), Dorsalis Pedis (L), Dorsalis Pedis ( R) Skin: Other (No erythema or warmth to R knee. ). No: Ecchymosis Neuro Extensive - Mental Status: Alert, Oriented x3, Normal Mood/Affect Neuro Extensive - Motor, Sensory, Reflexes: CN II-XII Intact Psychiatric: Alert, Normal Affect, Normal Mood - Patient Data Lab Results Last 24 hrs: Laboratory Results - last 24 hr 05/22/18 05/22/18 05/22/18 Range/Units 10:00 10:00 10:00 WBC 10.73 (4.0-11.0) K/uL RBC 3.33 L (4.50-5.90) M/uL Hgb 9.4 L (13.0-17.0) g/dL Hct 31.5 L (38.0-50.0) % MCV 94.6 (80.0-98.0) fL MCH 28.2 (27.0-32.0) pg MCHC 29.8 L (31.0-37.0) g/dL RDW Std Deviation 56.4 (28.0-62.0) fl RDW Coeff of [place] 16 H (11.0-15.0) % Plt Count 200 (150-400) K/uL MPV 10.00 (7.40-12.00) fL Add Manual Diff YES Neutrophils % (Manual) 77 (48.0-80.0) % Lymphocytes % (Manual) 19 (16.0-40.0) % Monocytes % (Manual) 4 (0.0-15.0) % Nucleated RBC % 0.0 /100WBC Absolute Seg Neuts 8.3 H (1.4-5.7) Lymphocytes # (Manual) 2.0 (0.6-2.4) Monocytes # (Manual) 0.4 (0.0-0.8) Nucleated RBCs # 0 K/uL INR 3.74 Sodium 144 (136-148) mmol/L Potassium 5.1 (3.5-5.1) mmol/L Chloride 106 (98-107) mmol/L Carbon Dioxide 34.7 H (21.0-32.0) mmol/L BUN 41 H (7.0-18.0) mg/dL Creatinine 2.1 H (0.8-1.3) mg/dL Est Cr Clr Drug Dosing 28.99 mL/min Estimated GFR (MDRD) 30.7 ml/min Glucose 162 H (74-106) mg/dL Calcium 8.6 (8.5-10.1) mg/dL Total Bilirubin 0.5 (0.2-1.0) mg/dL AST 12 L (15-37) IU/L ALT 11 L (14-63) IU/L Alkaline Phosphatase 87 (46-116) U/L Total Protein 6.2 L (6.4-8.2) g/dL Albumin 2.8 L (3.4-5.0) g/dL Globulin 3.4 (2.6-4.0) g/dL Albumin/Globulin Ratio 0.8 L (0.9-1.6) Result Diagrams: 05/22/18 10:00 05/22/18 10:00 *Q Meaningful Use (ADM) - VTE Risk Assess *Q Each Risk Factor Represents 1 Point: Swollen Legs, Current, Obesity ( BMI > 25 kg/m2), Congestive heart failure (CHF) Total Score 1 Point Risk Factors: 3 Each Risk Factor Represents 2 Points: None Total Score 2 Point Risk Factors: 0 Each Risk Factor Represents 3 Points: Age 75 Years or Greater Total Score 3 Point Risk Factors: 3 Each Risk Factor Represents 5 Points: None Total Score 5 Point Risk Factors: 0 Venous Thromboembolism Risk Factor Score *Q: 6 - Problem List (1) Right knee pain SNOMED Code(s): 33492116 ICD Code: M25.561 - PAIN IN RIGHT KNEE Status: Acute Current Visit: Yes Qualifiers: Chronicity: acute Qualified Code(s): M25.561 - Pain in right knee (2) Generalized weakness SNOMED Code(s): 97242851 ICD Code: R53.1 - WEAKNESS Status: Acute Current Visit: Yes (3) Oxygen dependent SNOMED Code(s): 530889235110 ICD Code: Z99.81 - DEPENDENCE ON SUPPLEMENTAL OXYGEN Status: Chronic Current Visit: Yes (4) Chronic anticoagulation SNOMED Code(s): 304063962 ICD Code: Z79.01 - SENIOR CARE (CURRENT) USE OF ANTICOAGULANTS Status: Chronic Current Visit: Yes (5) CHF (congestive heart failure) SNOMED Code(s): 03613437 ICD Code: I50.9 - HEART FAILURE, UNSPECIFIED Status: Chronic Current Visit: No (6) Morbid obesity with BMI of 40.0-44.9, adult SNOMED Code(s): 498534765, 38652070209922 ICD Code: E66.01 - MORBID (SEVERE) OBESITY DUE TO EXCESS CALORIES; Z68.41 - BODY MASS INDEX (BMI) 40.0-44.9, ADULT Status: Chronic Current Visit: No (7) S/P total knee arthroplasty SNOMED Code(s): 5501968599141, 325565673, 6251320526539 ICD Code: Z96.659 - PRESENCE OF UNSPECIFIED ARTIFICIAL KNEE JOINT Status: Chronic Current Visit: No Qualifiers: Laterality: right Qualified Code(s): Z96.651 - Presence of right artificial knee joint (8) A-fib SNOMED Code(s): 92707702 ICD Code: I48.91 - UNSPECIFIED ATRIAL FIBRILLATION Status: Chronic Current Visit: No Qualifiers: Atrial fibrillation type: paroxysmal Qualified Code(s): I48.0 - Paroxysmal atrial fibrillation (9) DM type 2 (diabetes mellitus, type 2) SNOMED Code(s): 11832410 ICD Code: E11.9 - TYPE 2 DIABETES MELLITUS WITHOUT COMPLICATIONS Status: Chronic Current Visit: No Qualifiers: Diabetes mellitus parts counterman insulin use: without parts counterman use Diabetes mellitus complication status: without complication Qualified Code(s): E11.9 - Type 2 diabetes mellitus without complications (10) HTN (hypertension) SNOMED Code(s): 91072614 ICD Code: I10 - ESSENTIAL (PRIMARY) HYPERTENSION Status: Chronic Current Visit: No Qualifiers: Hypertension type: essential hypertension Qualified Code(s): I10 - Essential (primary) hypertension Problem List Initiated/Reviewed/Updated: Yes Orders Last 24hrs: Active Orders 24 hr Category Date Time Status Admission Status [Patient Status] [ADT] Stat ADT 05/22/18 13:13 Active Blood Glucose Check, Bedside [RC] TIDAC Care 05/22/18 15:37 Active Height and Weight [RC] DAILY Care 05/22/18 15:25 Active Intake and Output [RC] QSHIFT Care 05/22/18 15:25 Active May Shower [RC] ASDIRECTED Care 05/22/18 15:25 Active Notify Provider Consults [RC] ASDIRECTED Care 05/22/18 15:52 Active Oxygen Therapy [RC] ASDIRECTED Care 05/22/18 10:08 Active Oxygen Therapy [RC] PRN Care 05/22/18 15:25 Active Up With Assistance [RC] ASDIRECTED Care 05/22/18 15:25 Active VTE/DVT Education [RC] PER UNIT ROUTINE Care 05/22/18 15:25 Active Vital Signs [RC] Q4H Care 05/22/18 15:25 Active Consult to Physician [CONS] Routine Cons 05/22/18 15:50 Active Citizen Of [place] [employer]abetic [employer] Diet [DIET] Diet 05/22/18 Lunch Active BASIC METABOLIC PANEL,BMP [CHEM] AM Lab 05/23/18 05:11 Ordered CBC WITH AUTO DIFF [HEME] AM Lab 05/23/18 05:11 Ordered INR,PT,PROTHROMBIN TIME [COAG] AM Lab 05/23/18 05:11 Ordered INR,PT,PROTHROMBIN TIME [COAG] AM Lab 05/24/18 05:11 Ordered INR,PT,PROTHROMBIN TIME [COAG] AM Lab 05/25/18 05:11 Ordered INR,PT,PROTHROMBIN TIME [COAG] AM Lab 05/26/18 05:11 Ordered Acetaminophen [Tylenol] Med 05/22/18 15:25 Active 650 mg PO Q4H PRN Insulin Aspart [NovoLOG] Med 05/22/18 17:00 Active See Protocol SUBCUT TIDAC Ondansetron [Zofran] Med 05/22/18 15:25 Active 4 mg IVPUSH Q4H PRN Sodium Chloride 0.9% [Saline Flush] Med 05/22/18 15:25 Active 2.5 ml FLUSH ASDIRECTED PRN Saline Lock Insert [OM.PC] Routine Oth 05/22/18 15:25 Ordered Resuscitation Status Routine Resus Stat 05/22/18 15:25 Ordered Medication Orders Acetaminophen (Tylenol) 650 mg PO Q4H PRN PRN Reason: Pain Insulin Aspart (Novolog) 0 unit SUBCUT TIDAC BLANCA; Protocol Ondansetron HCl (Zofran) 4 mg IVPUSH Q4H PRN PRN Reason: Nausea Sodium Chloride (Saline Flush) 2.5 ml FLUSH ASDIRECTED PRN PRN Reason: Keep Vein Open Assessment/Plan Comment:: This 77 year old male admitted with R knee pain and generalized deconditioning 1. R Knee pain: S/P R TKA in 2017. Joint effusion noted on xray. Dr Rankin consulted and spoke with ED physician, she will evaluate patient. 2. Generalized deconditioning: PT/OT consult 3. Anemia: hgb 9.4 down from 11 from last admission. Will obtain recent MA labwork. Consider iron studies. Denies black or blood BMs. Takes Iron daily. 4.CHF: stable, diastolic. Continue home medications of Lasix. Daily weight and strict I/O, low Na diet. 5. DM Type 2: Stable Reports he no longer takes insulin and he reports Dr Reyna Rankin said he could stop PO medications as well. Will hold PO, and monitor BS TIDAC and Novolog SSI. 6. Afib with chronic anticoagulation: Stable. Continue Metoprolol. Monitor INR, he took Coumadin today, INR 3.74. 7. CKD: Stable BUN and Cr at baseline. VTE prophylaxis: Coumadin Dispo: 1-2 days <Gerard Nieto - Last Filed: 05/23/18 07:34> H&P History of Present Illness - General Admit Problem/Dx: Admission Diagnosis/Problem Admission Diagnosis/Problem Pain - History of Present Illness Initial Comments - Free Text/Narative: I have seen and examined the patient independently of Joycelyn Dela Cruz CNP. I have discussed the case with her. I have reviewed and agree with the assessment and plan of care for the patient as outlined by her. Please see orders. Exam - Vital Signs Vital Signs: Last Vital Signs Temp 37.1 C 05/23/18 04:33 Pulse 66 05/23/18 04:33 Resp 20 05/23/18 04:33 BP 122/59 L 05/23/18 04:33 Pulse Ox 92 L 05/23/18 04:33 - Patient Data Lab Results Last 24 hrs: Laboratory Results - last 24 hr 05/22/18 05/22/18 05/22/18 Range/Units 10:00 10:00 10:00 WBC 10.73 (4.0-11.0) K/uL RBC 3.33 L (4.50-5.90) M/uL Hgb 9.4 L (13.0-17.0) g/dL Hct 31.5 L (38.0-50.0) % MCV 94.6 (80.0-98.0) fL MCH 28.2 (27.0-32.0) pg MCHC 29.8 L (31.0-37.0) g/dL RDW Std Deviation 56.4 (28.0-62.0) fl RDW Coeff of [place] 16 H (11.0-15.0) % Plt Count 200 (150-400) K/uL MPV 10.00 (7.40-12.00) fL Neut % (Auto) (48.0-80.0) % Lymph % (Auto) (16.0-40.0) % [place] % (Auto) (0.0-15.0) % Eos % (Auto) (0.0-7.0) % Baso % (Auto) (0.0-1.5) % Neut # (Auto) (1.4-5.7) K/uL Lymph # (Auto) (0.6-2.4) K/uL [place] # (Auto) (0.0-0.8) K/uL Eos # (Auto) (0.0-0.7) K/uL Baso # (Auto) (0.0-0.1) K/uL Add Manual Diff YES Neutrophils % (Manual) 77 (48.0-80.0) % Lymphocytes % (Manual) 19 (16.0-40.0) % Monocytes % (Manual) 4 (0.0-15.0) % Nucleated RBC % 0.0 /100WBC Absolute Seg Neuts 8.3 H (1.4-5.7) Lymphocytes # (Manual) 2.0 (0.6-2.4) Monocytes # (Manual) 0.4 (0.0-0.8) Nucleated RBCs # 0 K/uL ESR (0-19) mm/hr INR 3.74 Sodium 144 (136-148) mmol/L Potassium 5.1 (3.5-5.1) mmol/L Chloride 106 (98-107) mmol/L Carbon Dioxide 34.7 H (21.0-32.0) mmol/L BUN 41 H (7.0-18.0) mg/dL Creatinine 2.1 H (0.8-1.3) mg/dL Est Cr Clr Drug Dosing 28.99 mL/min Estimated GFR (MDRD) 30.7 ml/min Glucose 162 H (74-106) mg/dL POC Glucose (60-110) mg/dL Calcium 8.6 (8.5-10.1) mg/dL Total Bilirubin 0.5 (0.2-1.0) mg/dL AST 12 L (15-37) IU/L ALT 11 L (14-63) IU/L Alkaline Phosphatase 87 (46-116) U/L C-Reactive Protein (0.00-0.90) mg/dL Total Protein 6.2 L (6.4-8.2) g/dL Albumin 2.8 L (3.4-5.0) g/dL Globulin 3.4 (2.6-4.0) g/dL Albumin/Globulin Ratio 0.8 L (0.9-1.6) 05/22/18 05/23/18 05/23/18 Range/Units 16:43 04:55 04:55 WBC 7.59 (4.0-11.0) K/uL RBC 3.29 L (4.50-5.90) M/uL Hgb 9.2 L (13.0-17.0) g/dL Hct 31.1 L (38.0-50.0) % MCV 94.5 (80.0-98.0) fL MCH 28.0 (27.0-32.0) pg MCHC 29.6 L (31.0-37.0) g/dL RDW Std Deviation 55.4 (28.0-62.0) fl RDW Coeff of [place] 16 H (11.0-15.0) % Plt Count 180 (150-400) K/uL MPV 9.80 (7.40-12.00) fL Neut % (Auto) 65.6 (48.0-80.0) % Lymph % (Auto) 22.8 (16.0-40.0) % [place] % (Auto) 8.0 (0.0-15.0) % Eos % (Auto) 3.3 (0.0-7.0) % Baso % (Auto) 0.3 (0.0-1.5) % Neut # (Auto) 5.0 (1.4-5.7) K/uL Lymph # (Auto) 1.7 (0.6-2.4) K/uL [place] # (Auto) 0.6 (0.0-0.8) K/uL Eos # (Auto) 0.3 (0.0-0.7) K/uL Baso # (Auto) 0.0 (0.0-0.1) K/uL Add Manual Diff Neutrophils % (Manual) (48.0-80.0) % Lymphocytes % (Manual) (16.0-40.0) % Monocytes % (Manual) (0.0-15.0) % Nucleated RBC % 0.0 /100WBC Absolute Seg Neuts (1.4-5.7) Lymphocytes # (Manual) (0.6-2.4) Monocytes # (Manual) (0.0-0.8) Nucleated RBCs # 0 K/uL ESR (0-19) mm/hr INR 3.01 Sodium (136-148) mmol/L Potassium (3.5-5.1) mmol/L Chloride (98-107) mmol/L Carbon Dioxide (21.0-32.0) mmol/L BUN (7.0-18.0) mg/dL Creatinine (0.8-1.3) mg/dL Est Cr Clr Drug Dosing mL/min Estimated GFR (MDRD) ml/min Glucose (74-106) mg/dL POC Glucose 135 H (60-110) mg/dL Calcium (8.5-10.1) mg/dL Total Bilirubin (0.2-1.0) mg/dL AST (15-37) IU/L ALT (14-63) IU/L Alkaline Phosphatase (46-116) U/L C-Reactive Protein (0.00-0.90) mg/dL Total Protein (6.4-8.2) g/dL Albumin (3.4-5.0) g/dL Globulin (2.6-4.0) g/dL Albumin/Globulin Ratio (0.9-1.6) 05/23/18 05/23/18 05/23/18 Range/Units 04:55 04:55 04:55 WBC (4.0-11.0) K/uL RBC (4.50-5.90) M/uL Hgb (13.0-17.0) g/dL Hct (38.0-50.0) % MCV (80.0-98.0) fL MCH (27.0-32.0) pg MCHC (31.0-37.0) g/dL RDW Std Deviation (28.0-62.0) fl RDW Coeff of [place] (11.0-15.0) % Plt Count (150-400) K/uL MPV (7.40-12.00) fL Neut % (Auto) (48.0-80.0) % Lymph % (Auto) (16.0-40.0) % [place] % (Auto) (0.0-15.0) % Eos % (Auto) (0.0-7.0) % Baso % (Auto) (0.0-1.5) % Neut # (Auto) (1.4-5.7) K/uL Lymph # (Auto) (0.6-2.4) K/uL [place] # (Auto) (0.0-0.8) K/uL Eos # (Auto) (0.0-0.7) K/uL Baso # (Auto) (0.0-0.1) K/uL Add Manual Diff Neutrophils % (Manual) (48.0-80.0) % Lymphocytes % (Manual) (16.0-40.0) % Monocytes % (Manual) (0.0-15.0) % Nucleated RBC % /100WBC Absolute Seg Neuts (1.4-5.7) Lymphocytes # (Manual) (0.6-2.4) Monocytes # (Manual) (0.0-0.8) Nucleated RBCs # K/uL ESR 54 H (0-19) mm/hr INR Sodium 144 (136-148) mmol/L Potassium 4.5 (3.5-5.1) mmol/L Chloride 106 (98-107) mmol/L Carbon Dioxide 35.0 H (21.0-32.0) mmol/L BUN 43 H (7.0-18.0) mg/dL Creatinine 2.0 H (0.8-1.3) mg/dL Est Cr Clr Drug Dosing 30.44 mL/min Estimated GFR (MDRD) 32.5 ml/min Glucose 126 H (74-106) mg/dL POC Glucose (60-110) mg/dL Calcium 8.7 (8.5-10.1) mg/dL Total Bilirubin (0.2-1.0) mg/dL AST (15-37) IU/L ALT (14-63) IU/L Alkaline Phosphatase (46-116) U/L C-Reactive Protein 2.80 H (0.00-0.90) mg/dL Total Protein (6.4-8.2) g/dL Albumin (3.4-5.0) g/dL Globulin (2.6-4.0) g/dL Albumin/Globulin Ratio (0.9-1.6) 05/23/18 Range/Units 06:31 WBC (4.0-11.0) K/uL RBC (4.50-5.90) M/uL Hgb (13.0-17.0) g/dL Hct (38.0-50.0) % MCV (80.0-98.0) fL MCH (27.0-32.0) pg MCHC (31.0-37.0) g/dL RDW Std Deviation (28.0-62.0) fl RDW Coeff of [place] (11.0-15.0) % Plt Count (150-400) K/uL MPV (7.40-12.00) fL Neut % (Auto) (48.0-80.0) % Lymph % (Auto) (16.0-40.0) % [place] % (Auto) (0.0-15.0) % Eos % (Auto) (0.0-7.0) % Baso % (Auto) (0.0-1.5) % Neut # (Auto) (1.4-5.7) K/uL Lymph # (Auto) (0.6-2.4) K/uL [place] # (Auto) (0.0-0.8) K/uL Eos # (Auto) (0.0-0.7) K/uL Baso # (Auto) (0.0-0.1) K/uL Add Manual Diff Neutrophils % (Manual) (48.0-80.0) % Lymphocytes % (Manual) (16.0-40.0) % Monocytes % (Manual) (0.0-15.0) % Nucleated RBC % /100WBC Absolute Seg Neuts (1.4-5.7) Lymphocytes # (Manual) (0.6-2.4) Monocytes # (Manual) (0.0-0.8) Nucleated RBCs # K/uL ESR (0-19) mm/hr INR Sodium (136-148) mmol/L Potassium (3.5-5.1) mmol/L Chloride (98-107) mmol/L Carbon Dioxide (21.0-32.0) mmol/L BUN (7.0-18.0) mg/dL Creatinine (0.8-1.3) mg/dL Est Cr Clr Drug Dosing mL/min Estimated GFR (MDRD) ml/min Glucose (74-106) mg/dL POC Glucose 129 H (60-110) mg/dL Calcium (8.5-10.1) mg/dL Total Bilirubin (0.2-1.0) mg/dL AST (15-37) IU/L ALT (14-63) IU/L Alkaline Phosphatase (46-116) U/L C-Reactive Protein (0.00-0.90) mg/dL Total Protein (6.4-8.2) g/dL Albumin (3.4-5.0) g/dL Globulin (2.6-4.0) g/dL Albumin/Globulin Ratio (0.9-1.6) Result Diagrams: 05/23/18 04:55 05/23/18 04:55 Orders Last 24hrs: Active Orders 24 hr Category Date Time Status Admission Status [Patient Status] [ADT] Stat ADT 05/22/18 13:13 Active Blood Glucose Check, Bedside [RC] TIDAC Care 05/22/18 15:37 Active Height and Weight [RC] DAILY Care 05/22/18 15:25 Active Intake and Output [RC] QSHIFT Care 05/22/18 15:25 Active May Shower [RC] ASDIRECTED Care 05/22/18 15:25 Active Notify Provider Consults [RC] ASDIRECTED Care 05/22/18 15:52 Active Oxygen Therapy [RC] PRN Care 05/22/18 15:25 Active Up With Assistance [RC] ASDIRECTED Care 05/22/18 15:25 Active VTE/DVT Education [RC] PER UNIT ROUTINE Care 05/22/18 15:25 Active Vital Signs [RC] Q4H Care 05/22/18 15:25 Active Consult to Physical Therapy [PT Evaluation and Cons 05/22/18 17:57 Active Treatment] [CONS] Routine Consult to Physician [CONS] Routine Cons 05/22/18 15:50 Active Citizen Of [place] [employer] Diet [DIET] Diet 05/22/18 Lunch Active INR,PT,PROTHROMBIN TIME [COAG] AM Lab 05/24/18 05:11 Ordered INR,PT,PROTHROMBIN TIME [COAG] AM Lab 05/25/18 05:11 Ordered INR,PT,PROTHROMBIN TIME [COAG] AM Lab 05/26/18 05:11 Ordered Acetaminophen [Tylenol] Med 05/22/18 15:25 Active 650 mg PO Q4H PRN Albuterol [Proventil Neb Soln] Med 05/22/18 17:42 Active 2.5 mg NEB Q4H PRN Aspirin [Halfprin] Med 05/23/18 09:00 Active 81 mg PO DAILY Ferrous Sulfate Med 05/22/18 22:00 Active 325 mg PO TID Finasteride [Proscar] Med 05/23/18 09:00 Active 5 mg PO DAILY Furosemide [Lasix] Med 05/23/18 08:00 Active 80 mg PO BIDDIURETIC Insulin Aspart [NovoLOG] Med 05/22/18 17:00 Active See Protocol SUBCUT TIDAC Losartan [Cozaar] Med 05/23/18 09:00 Active 100 mg PO DAILY Melatonin Med 05/22/18 21:00 Active 3 mg PO BEDTIME Metoprolol Succinate [Toprol XL] Med 05/22/18 21:00 Active 12.5 mg PO BID Ondansetron [Zofran] Med 05/22/18 15:25 Active 4 mg IVPUSH Q4H PRN Pantoprazole [ProTONIX] Med 05/23/18 09:00 Active 40 mg PO DAILY Patient's Own Medication [Ptom] Med 05/22/18 21:00 Active 0 each INH Q12HR Sodium Chloride 0.9% [Saline Flush] Med 05/22/18 15:25 Active 2.5 ml FLUSH ASDIRECTED PRN Spironolactone [Aldactone] Med 05/23/18 09:00 Active 12.5 mg PO DAILY Tamsulosin [Flomax] Med 05/22/18 21:00 Active 0.4 mg PO BEDTIME traZODone Med 05/22/18 21:00 Active 50 mg PO BEDTIME Saline Lock Insert [OM.PC] Routine Oth 05/22/18 15:25 Ordered Resuscitation Status Routine Resus Stat 05/22/18 15:25 Ordered Medication Orders Acetaminophen (Tylenol) 650 mg PO Q4H PRN PRN Reason: Pain Last Admin: 05/22/18 19:18 Dose: 650 mg Albuterol (Proventil Neb Soln) 2.5 mg NEB Q4H PRN PRN Reason: Shortness of Breath Aspirin (Halfprin) 81 mg PO DAILY [facility] Ferrous Sulfate (Ferrous Sulfate) 325 mg PO TID [facility] Last Admin: 05/23/18 06:03 Dose: 325 mg Admin: 05/22/18 21:54 Dose: 325 mg Finasteride (Proscar) 5 mg PO DAILY [facility] Furosemide (Lasix) 80 mg PO BIDDIURETIC [facility] Insulin Aspart (Novolog) 0 unit SUBCUT TIDAC [facility]; Protocol Last Admin: 05/22/18 16:50 Dose: Not Given Losartan Potassium (Cozaar) 100 mg PO DAILY [facility] Melatonin (Melatonin) 3 mg PO BEDTIME [facility] Last Admin: 05/22/18 20:29 Dose: 3 mg Metoprolol Succinate (Toprol Xl) 12.5 mg PO BID [facility] Last Admin: 05/22/18 20:30 Dose: 12.5 mg Ondansetron HCl (Zofran) 4 mg IVPUSH Q4H PRN PRN Reason: Nausea Pantoprazole Sodium (Protonix) 40 mg PO DAILY [facility] Budesonide/Formoterol 160-4.5 Mcg/Puff 6 Gm Inhaler 0 each INH Q12HR [facility] Last Admin: 05/22/18 21:58 Dose: Sodium Chloride (Saline Flush) 2.5 ml FLUSH ASDIRECTED PRN PRN Reason: Keep Vein Open Spironolactone (Aldactone) 12.5 mg PO DAILY [facility] Tamsulosin HCl (Flomax) 0.4 mg PO BEDTIME [facility] Last Admin: 05/22/18 20:29 Dose: 0.4 mg Trazodone HCl (Trazodone) 50 mg PO BEDTIME [facility] Last Admin: 05/22/18 20:29 Dose: 50 mg
[2018-05-22] MEDS: Insulin Aspart 100 Units/ML 3 ML Pen SUBCUT SCH (16:50)
[2018-05-22] MEDS ORDERED: Albuterol 0.083% 2.5 MG/3 ML Neb Soln NEB PRN (17:42)
[2018-05-22] MEDS ORDERED: Furosemide 80 MG Tab PO SCH (18:00)
--- NOTE | 2018-05-22 18:05 | PCM.CONS ---
H&P History of Present Illness - General Date of Service: 05/22/18 Admit Problem/Dx: Admission Diagnosis/Problem Admission Diagnosis/Problem R Knee Pain Source of Information: Patient, Old Records History Limitations: Reports: No Limitations - History of Present Illness Initial Comments - Free Text/Narative: 77 y/o male who underwent R TKA in 04/20. Did fairly well following surgery. States he has occasionally had some pain in the right knee. Yesterday he got up from his recliner and felt a sharp pain in the knee. States it gave way, however he did not fall. Has noted some swelling and increased pain in knee since that time. He is now able to WB and is able to ambulate to the BR with the use of a cane. Denies fever/chills. right knee Pain Score (Numeric/FACES): 7 - Related Data Allergies/Adverse Reactions: Allergies Allergy/AdvReac Type Severity Reaction Status Date / Time morphine Allergy Itching Verified 07/12/17 11:52 Home Medications: Home Meds Furosemide [Lasix] 80 mg PO BID 07/12/17 [History] Insulin Detemir [Levemir Flextouch] 55 unit SUBCUT BEDTIME 07/12/17 [History] Spironolactone [Aldactone] 12.5 mg PO DAILY 07/12/17 [History] Acetaminophen 500 mg PO Q6HR PRN 05/22/18 [History] Albuterol Sulfate 1 inh INH Q4H PRN 05/22/18 [History] Ammonium Lactate 1 applic TOP BID 05/22/18 [History] Aspirin [Halfprin] 81 mg PO DAILY 05/22/18 [History] Blood Sugar Diagnostic [Accu-Chek Suha Plus] 1 applic TOP ASDIRECTED 05/22/18 [ History] Budesonide/Formoterol [Symbicort 160-4.5 MCG] 2 inhalation INH Q12HR 05/22/18 [ History] Ferrous Sulfate 325 mg PO TID 05/22/18 [History] Finasteride 5 mg PO DAILY 05/22/18 [History] Insulin Aspart [NovoLOG] 10 unit SUBCUT TIDMEALS 05/22/18 [History] Lancets [Techlite Blood Lancet] 1 each ASDIRECTED 05/22/18 [History] Losartan [Cozaar] 100 mg PO DAILY 05/22/18 [History] Melatonin 5 mg PO BEDTIME 05/22/18 [History] Metoprolol Succinate 12.5 mg PO BID 05/22/18 [History] Pantoprazole [ProTONIX] 40 mg PO DAILY 05/22/18 [History] Potassium Chloride 20 meq PO DAILY 05/22/18 [History] Tamsulosin [Flomax] 0.4 mg PO BEDTIME 05/22/18 [History] Warfarin [Coumadin] 5 mg PO DAILY 05/22/18 [History] traZODone HCl [Trazodone HCl] 50 mg PO BEDTIME 05/22/18 [History] Past Medical History HEENT History: Reports: Hard of Hearing, Impaired Vision Other HEENT History: wears glasses, top denture, annalisa hearing aids Cardiovascular History: Reports: Afib, Heart Failure, High Cholesterol, Hypertension, SOB on Exertion. Denies: Blood Clots/VTE/DVT Respiratory History: Reports: SOB, Other (See Below) (Oxygen dependent, 2 L NC) Gastrointestinal History: Reports: Other (See Below) Other Gastrointestinal History: occasional heartburn Genitourinary History: Reports: Renal Calculus Other Genitourinary History: hx kidney stones Musculoskeletal History: Reports: Arthritis, Osteoarthritis Neurological History: Reports: None. Denies: CVA Psychiatric History: Reports: None Endocrine/Metabolic History: Reports: Diabetes, Type II, Obesity/BMI 30+ Hematologic History: Reports: None Immunologic History: Reports: None Oncologic (Cancer) History: Reports: None Dermatologic History: Reports: None - Infectious Disease History Infectious Disease History: Reports: Chicken Pox, Measles, Mumps - Past Surgical History Head Surgeries/Procedures: Reports: None HEENT Surgical History: Reports: None Musculoskeletal Surgical History: Reports: Arthroscopic Knee, Knee Replacement Social & Family History - Family History Family Medical History: Noncontributory - Tobacco Use Smoking Status *Q: Former Smoker Used Tobacco, but Quit: Yes Month/Year Tobacco Last Used: 04/2001 Tobacco Use Comment: Quit 16 yrs ago Second Hand Smoke Exposure: No - Caffeine Use Caffeine Use: Reports: Coffee - Recreational Drug Use Recreational Drug Use: No - Living Situation & Occupation Living situation: Reports: Alone Occupation: Retired H&P Review of Systems - Review of Systems: Review Of Systems: See Below General: Reports: No Symptoms. Denies: Fever, Chills HEENT: Reports: No Symptoms Pulmonary: Reports: No Symptoms Cardiovascular: Reports: No Symptoms Gastrointestinal: Reports: No Symptoms Genitourinary: Reports: No Symptoms Musculoskeletal: Reports: Joint Pain Skin: Reports: No Symptoms Psychiatric: Reports: No Symptoms Neurological: Reports: No Symptoms Hematologic/Lymphatic: Reports: No Symptoms Immunologic: Reports: No Symptoms Exam - Exam Exam: See Below - Vital Signs Vital Signs: Last Vital Signs Temp 97.8 F 05/22/18 09:41 Pulse 69 05/22/18 14:00 Resp 18 05/22/18 14:00 BP 119/58 L 05/22/18 14:00 Pulse Ox 94 L 05/22/18 14:00 Weight: 296 kg - Exam General: Alert, Oriented, 4 HEENT: Conjunctiva Clear, Hearing Intact, Nares Patent Neck: Supple, Trachea Midline, 2 Lungs: Normal Respiratory Effort Cardiovascular: Irregular Rhythm GI/Abdominal Exam: Soft Skin: Warm, Dry, Intact Neuro Extensive - Mental Status: Alert, Oriented x3, Normal Mood/Affect, Normal Cognition Psychiatric: Alert, Normal Affect, Normal Mood Physical Exam Comments:: Exam of RLE shows no obvious abnormality. No pain with hip ROM with full motion. Well healed midline incision on anterior knee. Mild joint efusion. No specific areas of tenderness to palpation. ROM 0-110 degrees. Stable to varus/ valgus stress and no abnormal anterior translation. Mild tenderness to palpation in the posterior calf. AT/EHL/gastroc 5/5. Sensation intact. DP 2+. - Patient Data Lab Results Last 24 hrs: Laboratory Results - last 24 hr 05/22/18 05/22/18 05/22/18 Range/Units 10:00 10:00 10:00 WBC 10.73 (4.0-11.0) K/uL RBC 3.33 L (4.50-5.90) M/uL Hgb 9.4 L (13.0-17.0) g/dL Hct 31.5 L (38.0-50.0) % MCV 94.6 (80.0-98.0) fL MCH 28.2 (27.0-32.0) pg MCHC 29.8 L (31.0-37.0) g/dL RDW Std Deviation 56.4 (28.0-62.0) fl RDW Coeff of [place] 16 H (11.0-15.0) % Plt Count 200 (150-400) K/uL MPV 10.00 (7.40-12.00) fL Add Manual Diff YES Neutrophils % (Manual) 77 (48.0-80.0) % Lymphocytes % (Manual) 19 (16.0-40.0) % Monocytes % (Manual) 4 (0.0-15.0) % Nucleated RBC % 0.0 /100WBC Absolute Seg Neuts 8.3 H (1.4-5.7) Lymphocytes # (Manual) 2.0 (0.6-2.4) Monocytes # (Manual) 0.4 (0.0-0.8) Nucleated RBCs # 0 K/uL INR 3.74 Sodium 144 (136-148) mmol/L Potassium 5.1 (3.5-5.1) mmol/L Chloride 106 (98-107) mmol/L Carbon Dioxide 34.7 H (21.0-32.0) mmol/L BUN 41 H (7.0-18.0) mg/dL Creatinine 2.1 H (0.8-1.3) mg/dL Est Cr Clr Drug Dosing 28.99 mL/min Estimated GFR (MDRD) 30.7 ml/min Glucose 162 H (74-106) mg/dL Calcium 8.6 (8.5-10.1) mg/dL Total Bilirubin 0.5 (0.2-1.0) mg/dL AST 12 L (15-37) IU/L ALT 11 L (14-63) IU/L Alkaline Phosphatase 87 (46-116) U/L Total Protein 6.2 L (6.4-8.2) g/dL Albumin 2.8 L (3.4-5.0) g/dL Globulin 3.4 (2.6-4.0) g/dL Albumin/Globulin Ratio 0.8 L (0.9-1.6) Result Diagrams: 05/22/18 10:00 05/22/18 10:00 Imaging Impressions Last 24 hrs: XR of R knee shows good fixation and placement of TKA components. No evidence of fracture. Tib fib XR also negative. Venous doppler negative for DVT. Consult PN Assessment/Plan Procedures: Procedures ASSAY OF IRON (02/21/15) ASSAY THYROID STIM HORMONE (09/18/16) CHEST X-RAY 2VW FRONTAL&LATL (09/18/16) COMPLETE CBC AUTOMATED (12/07/14) COMPLETE CBC W/AUTO DIFF WBC (09/18/16) COMPREHEN METABOLIC PANEL (09/18/16) ELECTROCARDIOGRAM TRACING (04/30/16) GLYCOSYLATED HEMOGLOBIN TEST (09/18/16) LIPID PANEL (04/30/16) MEDICAL NUTRITION INDIV IN (01/20/15) MRI JNT OF LWR EXTRE W/O DYE (04/24/16) OFFICE/OUTPATIENT VISIT EST (01/17/15) OFFICE/OUTPATIENT VISIT NEW (12/09/14) PROTHROMBIN TIME (06/25/16) ROUTINE VENIPUNCTURE (09/18/16) THROMBOPLASTIN TIME PARTIAL (06/25/16) TTE W/DOPPLER COMPLETE (12/31/14) URINALYSIS AUTO W/SCOPE (06/25/16) X-RAY EXAM KNEE 4 OR MORE (03/29/16) X-RAY EXAM OF KNEE 3 (07/19/16) (1) Right knee pain SNOMED Code(s): 61872461 Code(s): M25.561 - PAIN IN RIGHT KNEE Current Visit: Yes Qualifiers: Chronicity: acute Qualified Code(s): M25.561 - Pain in right knee Problem List Initiated/Reviewed/Updated: Yes Plan: 1. No evidence of joint infection--FROM 2. Knee effusion may be due to hemarthrosis from elevated INR--conservative treatment 3. generalized deconditioning--will benefit from PT 4. plan for out patient f/u next week in clinic 5. No ortho intervention at this time. Will sign off. If further questions/ concerns, please reconsult me. Thanks you.
[2018-05-22] MEDS: Metoprolol Succinate 25 MG Tab.ER PO SCH (20:30)
[2018-05-22] MEDS ORDERED: traZODone 50 MG Tab PO SCH (21:00)
[2018-05-22] MEDS ORDERED: Melatonin 3 MG Tab PO SCH (21:00)
[2018-05-22] MEDS ORDERED: Tamsulosin 0.4 MG Cap.ER PO SCH (21:00)
[2018-05-22] MEDS: Ferrous Sulfate 325 MG Tab PO SCH (21:54)
[2018-05-22] MEDS: Budesonide/Formoterol 160-4.5 MCG/Puff 6 GM Inhaler INH SCH (21:58)
[2018-05-23] MEDS: Ferrous Sulfate 325 MG Tab PO SCH (06:03)
[2018-05-23] MEDS ORDERED: Furosemide 80 MG Tab PO SCH (08:00)
[2018-05-23] MEDS ORDERED: Aspirin 81 MG Tab.EC PO SCH (09:00)
[2018-05-23] MEDS ORDERED: Losartan 50 MG Tab PO SCH (09:00)
[2018-05-23] MEDS ORDERED: Spironolactone 25 MG Tab PO SCH (09:00)
[2018-05-23] MEDS ORDERED: Pantoprazole 40 MG Tab.CR PO SCH (09:00)
[2018-05-23] MEDS ORDERED: Finasteride 5 MG Tab PO SCH (09:00)
[2018-05-23] MEDS: Insulin Aspart 100 Units/ML 3 ML Pen SUBCUT SCH (09:03)
[2018-05-23] MEDS: Budesonide/Formoterol 160-4.5 MCG/Puff 6 GM Inhaler INH SCH (09:20)
[2018-05-23] MEDS: Metoprolol Succinate 25 MG Tab.ER PO SCH (10:02)
--- NOTE | 2018-05-23 10:49 | PCM.DCSUM1 ---
<Joycelyn Dela Cruz M - Last Filed: 05/23/18 11:16> Discharge Summary - Hospital Course Brief History: This 77 year old male with pmh of obesity, HTN, paroxysmal afib on Warfarin, peripheral edema, DM type 2 and hx of R TKA in 2017. He presented today to the ED with complaints of R knee pain and the inability to ambulate due to the pain and his knee giving out. He reports he has been doing well at home, no complaints of shortness of breath, no chest pain or abdominal pain. No black or blood BMs. No hematemesis. He reports he sleeps in his recliner, but at times lays in bed and that is flat No issues. Reports no increased lower leg swelling. He denies injury or falling to his R knee. He reports it started hurting two nights ago, he says it is sore around the knee cap and down. He denies fevers, chills. I spoke with his sister, who lives near him and organizes his medications. She reports he has been very sedentary this winter and has become weak due to not getting out and moving much. In the ED no leukocytosis noted, hgb 9.4. INR 3.74. BUN 41 Cr 2.1. R knee xray shows stable R knee hardware with small to moderate joint effusion. Doppler negative for DVT. He was going to be discharged home, but was unable to ambulate. ED recommended admission to have Dr Shubham Rankin evaluate knee and for physical deconditioning. PCP, Dr Reyna Rankin, [place] Diagnosis: Stroke: No - Discharge Data Discharge Date: 05/23/18 Discharge Disposition: Home, W Home Health Agency 06 Condition: Good - Discharge Diagnosis/Problem(s) (1) Right knee pain SNOMED Code(s): 17992258 ICD Code: M25.561 - PAIN IN RIGHT KNEE Status: Acute Qualifiers: Chronicity: acute Qualified Code(s): M25.561 - Pain in right knee (2) Generalized weakness SNOMED Code(s): 36056313 ICD Code: R53.1 - WEAKNESS Status: Acute (3) Oxygen dependent SNOMED Code(s): 858699231692 ICD Code: Z99.81 - DEPENDENCE ON SUPPLEMENTAL OXYGEN Status: Chronic (4) Chronic anticoagulation SNOMED Code(s): 264941999 ICD Code: Z79.01 - ASSISTED LIVING ADMINISTRATOR (CURRENT) USE OF ANTICOAGULANTS Status: Chronic (5) CHF (congestive heart failure) SNOMED Code(s): 15601181 ICD Code: I50.9 - HEART FAILURE, UNSPECIFIED Status: Chronic (6) Morbid obesity with BMI of 40.0-44.9, adult SNOMED Code(s): 922789836, 36594856201410 ICD Code: E66.01 - MORBID (SEVERE) OBESITY DUE TO EXCESS CALORIES; Z68.41 - BODY MASS INDEX (BMI) 40.0-44.9, ADULT Status: Chronic (7) S/P total knee arthroplasty SNOMED Code(s): 0568159353725, 652944637, 1916805094675 ICD Code: Z96.659 - PRESENCE OF UNSPECIFIED ARTIFICIAL KNEE JOINT Status: Chronic Qualifiers: Laterality: right Qualified Code(s): Z96.651 - Presence of right artificial knee joint (8) A-fib SNOMED Code(s): 81270418 ICD Code: I48.91 - UNSPECIFIED ATRIAL FIBRILLATION Status: Chronic Qualifiers: Atrial fibrillation type: paroxysmal Qualified Code(s): I48.0 - Paroxysmal atrial fibrillation (9) DM type 2 (diabetes mellitus, type 2) SNOMED Code(s): 40175352 ICD Code: E11.9 - TYPE 2 DIABETES MELLITUS WITHOUT COMPLICATIONS Status: Chronic Qualifiers: 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 Diabetes mellitus complication status: without complication Qualified Code(s): E11.9 - Type 2 diabetes mellitus without complications (10) HTN (hypertension) SNOMED Code(s): 56826447 ICD Code: I10 - ESSENTIAL (PRIMARY) HYPERTENSION Status: Chronic Qualifiers: Hypertension type: essential hypertension Qualified Code(s): I10 - Essential (primary) hypertension - Patient Summary/Data Consults: Consultations 05/22/18 15:50 Consult to Physician [CONS] Routine 05/22/18 17:57 Consult to Physical Therapy [PT Evaluation and Treatment] [CONS] Routine 05/23/18 07:46 Consult to Home Care [Consult to Home Health] [CONS] Routine - Patient Instructions Diet: Heart Healthy Diet, Low Sodium, Diabetic Diet Activity: As Tolerated Showering/Bathing: May Shower Notify Provider of: Fever, Increased Pain, Swelling and Redness, Drainage, Nausea and/or Vomiting - Discharge Plan *PRESCRIPTION DRUG MONITORING PROGRAM REVIEWED*: Not Applicable *COPY OF PRESCRIPTION DRUG MONITORING REPORT IN PATIENT XAVIER: Not Applicable Home Medications: Home Meds Furosemide [Lasix] 80 mg PO BID 07/12/17 [History] Insulin Detemir [Levemir Flextouch] 55 unit SUBCUT BEDTIME 07/12/17 [History] Spironolactone [Aldactone] 12.5 mg PO DAILY 07/12/17 [History] Acetaminophen 500 mg PO Q6HR PRN 05/22/18 [History] Albuterol Sulfate 1 inh INH Q4H PRN 05/22/18 [History] Ammonium Lactate 1 applic TOP BID 05/22/18 [History] Aspirin [Halfprin] 81 mg PO DAILY 05/22/18 [History] Blood Sugar Diagnostic [Accu-Chek Suha Plus] 1 applic TOP ASDIRECTED 05/22/18 [ History] Budesonide/Formoterol [Symbicort 160-4.5 MCG] 2 inhalation INH Q12HR 05/22/18 [ History] Ferrous Sulfate 325 mg PO TID 05/22/18 [History] Finasteride 5 mg PO DAILY 05/22/18 [History] Insulin Aspart [NovoLOG] 10 unit SUBCUT TIDMEALS 05/22/18 [History] Lancets [Techlite Lancets] 1 each ASDIRECTED 05/22/18 [History] Losartan [Cozaar] 100 mg PO DAILY 05/22/18 [History] Melatonin 5 mg PO BEDTIME 05/22/18 [History] Metoprolol Succinate 12.5 mg PO BID 05/22/18 [History] Pantoprazole [ProTONIX] 40 mg PO DAILY 05/22/18 [History] Potassium Chloride 20 meq PO DAILY 05/22/18 [History] Tamsulosin [Flomax] 0.4 mg PO BEDTIME 05/22/18 [History] Warfarin [Coumadin] 5 mg PO DAILY 05/22/18 [History] traZODone HCl [Trazodone HCl] 50 mg PO BEDTIME 05/22/18 [History] Patient Handouts: Knee Effusion, [id number], Musculoskeletal Pain Referrals: Sesar Rankin MD [Primary Care Provider] - 06/03/18 10:30 am Angelique Rankin MD [Physician] - 05/29/18 2:30 pm - Discharge Summary/Plan Comment DC Time >30 min.: No Discharge Summary/Plan Comment: Discharge Diagnoses R knee pain generalized weakness O2 dependent afib on chronic anticoagulation CHF HTN DM type 2 S/P R TKA 2017 Morbid obesity Giovani was admitted secondary to the inability to ambulate from R knee pain. His R knee did not appear erythematous, no other signs/symptoms of infection. Dr Rankin was consulted, due to this being a post operative knee, she reports no concerns. Recommended physical therapy. This morning Giovani reports he is feeling much better and was in his room ambulating and dressing himself without assistance. PT evaluated him and he is in need of assistance of 4 point cane and at times he reports he uses his walker at home. Giovani otherwise is medically stable and will be able to go home today. He will be discharged home with Home Health. He is in need of skilled care to assist with medication set up as well as PT/OT to evaluate and treat due to physical deconditioning from being more sedentary over the winter and to evaluate his home for possible need for more assistance devices and a home safety evaluation. He is homebound, needing family or caregiver to provide him with a ride to the store or appointments along with cane or walker. His PCP, Dr Reyna Rankin at the [place] will follow with Home Health plan of care. No changes to home medications, He is to return to ED or clinic if concerns should arise. - General Info Date of Service: 05/23/18 Admission Dx/Problem (Free Text: Admission Diagnosis/Problem Admission Diagnosis/Problem Pain Subjective Update: Dong well this morning, able to ambulate per self with cane in the room and get dressed. No chest pain or SOB. No other concerns. - Review of Systems General: Reports: No Symptoms. Denies: Fever, Weakness, Fatigue HEENT: Reports: No Symptoms. Denies: Headaches, Sore Throat Pulmonary: Reports: No Symptoms. Denies: Shortness of Breath Cardiovascular: Reports: No Symptoms. Denies: Chest Pain Gastrointestinal: Reports: No Symptoms. Denies: Abdominal Pain, Nausea, Vomiting Genitourinary: Reports: No Symptoms. Denies: Dysuria, Frequency, Burning Musculoskeletal: Reports: Joint Pain (R knee pain much better today.) Skin: Reports: No Symptoms Neurological: Reports: No Symptoms Psychiatric: Reports: No Symptoms - Patient Data Vitals - Most Recent: Last Vital Signs Temp 98 F 05/23/18 09:38 Pulse 82 05/23/18 09:38 Resp 14 05/23/18 09:38 BP 106/68 05/23/18 09:38 Pulse Ox 94 L 05/23/18 09:38 Weight - Most Recent: 132.948 kg I&O - Last 24 hours: Intake & Output 05/22/18 05/23/18 05/23/18 22:59 06:59 14:59 Intake Total 400 Output Total 525 500 Balance -525 -100 Lab Results - Last 24 hrs: Laboratory Results - last 24 hr 05/22/18 05/22/18 05/23/18 Range/Units 10:00 16:43 04:55 WBC 7.59 (4.0-11.0) K/uL RBC 3.29 L (4.50-5.90) M/uL Hgb 9.2 L (13.0-17.0) g/dL Hct 31.1 L (38.0-50.0) % MCV 94.5 (80.0-98.0) fL MCH 28.0 (27.0-32.0) pg MCHC 29.6 L (31.0-37.0) g/dL RDW Std Deviation 55.4 (28.0-62.0) fl RDW Coeff of [place] 16 H (11.0-15.0) % Plt Count 180 (150-400) K/uL MPV 9.80 (7.40-12.00) fL Neut % (Auto) 65.6 (48.0-80.0) % Lymph % (Auto) 22.8 (16.0-40.0) % [place] % (Auto) 8.0 (0.0-15.0) % Eos % (Auto) 3.3 (0.0-7.0) % Baso % (Auto) 0.3 (0.0-1.5) % Neut # (Auto) 5.0 (1.4-5.7) K/uL Lymph # (Auto) 1.7 (0.6-2.4) K/uL [place] # (Auto) 0.6 (0.0-0.8) K/uL Eos # (Auto) 0.3 (0.0-0.7) K/uL Baso # (Auto) 0.0 (0.0-0.1) K/uL Nucleated RBC % 0.0 /100WBC Nucleated RBCs # 0 K/uL ESR (0-19) mm/hr INR 3.74 Sodium (136-148) mmol/L Potassium (3.5-5.1) mmol/L Chloride (98-107) mmol/L Carbon Dioxide (21.0-32.0) mmol/L BUN (7.0-18.0) mg/dL Creatinine (0.8-1.3) mg/dL Est Cr Clr Drug Dosing mL/min Estimated GFR (MDRD) ml/min Glucose (74-106) mg/dL POC Glucose 135 H (60-110) mg/dL Calcium (8.5-10.1) mg/dL C-Reactive Protein (0.00-0.90) mg/dL 05/23/18 05/23/18 05/23/18 Range/Units 04:55 04:55 04:55 WBC (4.0-11.0) K/uL RBC (4.50-5.90) M/uL Hgb (13.0-17.0) g/dL Hct (38.0-50.0) % MCV (80.0-98.0) fL MCH (27.0-32.0) pg MCHC (31.0-37.0) g/dL RDW Std Deviation (28.0-62.0) fl RDW Coeff of [place] (11.0-15.0) % Plt Count (150-400) K/uL MPV (7.40-12.00) fL Neut % (Auto) (48.0-80.0) % Lymph % (Auto) (16.0-40.0) % [place] % (Auto) (0.0-15.0) % Eos % (Auto) (0.0-7.0) % Baso % (Auto) (0.0-1.5) % Neut # (Auto) (1.4-5.7) K/uL Lymph # (Auto) (0.6-2.4) K/uL [place] # (Auto) (0.0-0.8) K/uL Eos # (Auto) (0.0-0.7) K/uL Baso # (Auto) (0.0-0.1) K/uL Nucleated RBC % /100WBC Nucleated RBCs # K/uL ESR 54 H (0-19) mm/hr INR 3.01 Sodium 144 (136-148) mmol/L Potassium 4.5 (3.5-5.1) mmol/L Chloride 106 (98-107) mmol/L Carbon Dioxide 35.0 H (21.0-32.0) mmol/L BUN 43 H (7.0-18.0) mg/dL Creatinine 2.0 H (0.8-1.3) mg/dL Est Cr Clr Drug Dosing 30.44 mL/min Estimated GFR (MDRD) 32.5 ml/min Glucose 126 H (74-106) mg/dL POC Glucose (60-110) mg/dL Calcium 8.7 (8.5-10.1) mg/dL C-Reactive Protein (0.00-0.90) mg/dL 05/23/18 05/23/18 Range/Units 04:55 06:31 WBC (4.0-11.0) K/uL RBC (4.50-5.90) M/uL Hgb (13.0-17.0) g/dL Hct (38.0-50.0) % MCV (80.0-98.0) fL MCH (27.0-32.0) pg MCHC (31.0-37.0) g/dL RDW Std Deviation (28.0-62.0) fl RDW Coeff of [place] (11.0-15.0) % Plt Count (150-400) K/uL MPV (7.40-12.00) fL Neut % (Auto) (48.0-80.0) % Lymph % (Auto) (16.0-40.0) % [place] % (Auto) (0.0-15.0) % Eos % (Auto) (0.0-7.0) % Baso % (Auto) (0.0-1.5) % Neut # (Auto) (1.4-5.7) K/uL Lymph # (Auto) (0.6-2.4) K/uL [place] # (Auto) (0.0-0.8) K/uL Eos # (Auto) (0.0-0.7) K/uL Baso # (Auto) (0.0-0.1) K/uL Nucleated RBC % /100WBC Nucleated RBCs # K/uL ESR (0-19) mm/hr INR Sodium (136-148) mmol/L Potassium (3.5-5.1) mmol/L Chloride (98-107) mmol/L Carbon Dioxide (21.0-32.0) mmol/L BUN (7.0-18.0) mg/dL Creatinine (0.8-1.3) mg/dL Est Cr Clr Drug Dosing mL/min Estimated GFR (MDRD) ml/min Glucose (74-106) mg/dL POC Glucose 129 H (60-110) mg/dL Calcium (8.5-10.1) mg/dL C-Reactive Protein 2.80 H (0.00-0.90) mg/dL Med Orders - Current: Current Medications Acetaminophen (Tylenol) 650 mg PO Q4H PRN PRN Reason: Pain Last Admin: 05/22/18 19:18 Dose: 650 mg Albuterol (Proventil Neb Soln) 2.5 mg NEB Q4H PRN PRN Reason: Shortness of Breath Aspirin (Halfprin) 81 mg PO DAILY [facility] Last Admin: 05/23/18 09:13 Dose: 81 mg Ferrous Sulfate (Ferrous Sulfate) 325 mg PO TID [facility] Last Admin: 05/23/18 06:03 Dose: 325 mg Finasteride (Proscar) 5 mg PO DAILY [facility] Last Admin: 05/23/18 09:05 Dose: Not Given Furosemide (Lasix) 80 mg PO BIDDIURETIC [facility] Last Admin: 05/23/18 09:02 Dose: 80 mg Insulin Aspart (Novolog) 0 unit SUBCUT TIDAC [facility]; Protocol Last Admin: 05/23/18 09:03 Dose: Not Given Losartan Potassium (Cozaar) 100 mg PO DAILY [facility] Last Admin: 05/23/18 09:06 Dose: Not Given Melatonin (Melatonin) 3 mg PO BEDTIME [facility] Last Admin: 05/22/18 20:29 Dose: 3 mg Metoprolol Succinate (Toprol Xl) 12.5 mg PO BID [facility] Last Admin: 05/23/18 10:02 Dose: Not Given Ondansetron HCl (Zofran) 4 mg IVPUSH Q4H PRN PRN Reason: Nausea Pantoprazole Sodium (Protonix) 40 mg PO DAILY [facility] Last Admin: 05/23/18 09:13 Dose: 40 mg Budesonide/Formoterol 160-4.5 Mcg/Puff 6 Gm Inhaler 0 each INH Q12HR [facility] Last Admin: 05/23/18 09:20 Dose: Not Given Sodium Chloride (Saline Flush) 2.5 ml FLUSH ASDIRECTED PRN PRN Reason: Keep Vein Open Spironolactone (Aldactone) 12.5 mg PO DAILY [facility] Last Admin: 05/23/18 10:02 Dose: Not Given Tamsulosin HCl (Flomax) 0.4 mg PO BEDTIME [facility] Last Admin: 05/22/18 20:29 Dose: 0.4 mg Trazodone HCl (Trazodone) 50 mg PO BEDTIME [facility] Last Admin: 05/22/18 20:29 Dose: 50 mg Discontinued Medications Furosemide (Lasix) 80 mg PO BIDDIURETIC [facility] - Exam General: Reports: Alert, Oriented, Cooperative, No Acute Distress Lungs: Reports: Clear to Auscultation, Normal Respiratory Effort Cardiovascular: Reports: Regular Rate, Regular Rhythm GI/Abdominal Exam: Normal Bowel Sounds, Soft, Non-Tender, No Distention, No Mass , Other (obese abdomen) Extremities: Normal Inspection, Normal Range of Motion, Non-Tender, Pedal Edema (+1 pitting, baseline) Skin: Reports: Warm, Dry, Intact Wound/Incisions: Denies: Erythema Neurological: Reports: No New Focal Deficit Psy/Mental Status: Reports: Alert, Normal Affect, Normal Mood <Gerard Nieto - Last Filed: 05/23/18 18:34> Discharge Summary - Hospital Course HPI Initial Comments: I have seen and examined the patient independently of Joycelyn Dela Cruz CNP. I have discussed the case with her. I have reviewed and agree with the assessment and plan of care for the patient as outlined by her. Please see orders. - Patient Summary/Data Consults: Consultations 05/22/18 15:50 Consult to Physician [CONS] Routine 05/22/18 17:57 Consult to Physical Therapy [PT Evaluation and Treatment] [CONS] Routine 05/23/18 07:46 Consult to Home Care [Consult to Home Health] [CONS] Routine - Patient Data Vitals - Most Recent: Last Vital Signs Temp 36.6 C 05/23/18 11:26 Pulse 70 05/23/18 11:26 Resp 16 05/23/18 11:26 BP 123/64 05/23/18 11:26 Pulse Ox 96 05/23/18 11:26 I&O - Last 24 hours: Intake & Output 05/23/18 05/23/18 05/23/18 06:59 14:59 22:59 Intake Total 400 Output Total 500 Balance -100 Lab Results - Last 24 hrs: Laboratory Results - last 24 hr 05/22/18 05/23/18 05/23/18 Range/Units 16:43 04:55 04:55 WBC 7.59 (4.0-11.0) K/uL RBC 3.29 L (4.50-5.90) M/uL Hgb 9.2 L (13.0-17.0) g/dL Hct 31.1 L (38.0-50.0) % MCV 94.5 (80.0-98.0) fL MCH 28.0 (27.0-32.0) pg MCHC 29.6 L (31.0-37.0) g/dL RDW Std Deviation 55.4 (28.0-62.0) fl RDW Coeff of [place] 16 H (11.0-15.0) % Plt Count 180 (150-400) K/uL MPV 9.80 (7.40-12.00) fL Neut % (Auto) 65.6 (48.0-80.0) % Lymph % (Auto) 22.8 (16.0-40.0) % [place] % (Auto) 8.0 (0.0-15.0) % Eos % (Auto) 3.3 (0.0-7.0) % Baso % (Auto) 0.3 (0.0-1.5) % Neut # (Auto) 5.0 (1.4-5.7) K/uL Lymph # (Auto) 1.7 (0.6-2.4) K/uL [place] # (Auto) 0.6 (0.0-0.8) K/uL Eos # (Auto) 0.3 (0.0-0.7) K/uL Baso # (Auto) 0.0 (0.0-0.1) K/uL Nucleated RBC % 0.0 /100WBC Nucleated RBCs # 0 K/uL ESR (0-19) mm/hr INR 3.01 Sodium (136-148) mmol/L Potassium (3.5-5.1) mmol/L Chloride (98-107) mmol/L Carbon Dioxide (21.0-32.0) mmol/L BUN (7.0-18.0) mg/dL Creatinine (0.8-1.3) mg/dL Est Cr Clr Drug Dosing mL/min Estimated GFR (MDRD) ml/min Glucose (74-106) mg/dL POC Glucose 135 H (60-110) mg/dL Calcium (8.5-10.1) mg/dL C-Reactive Protein (0.00-0.90) mg/dL 05/23/18 05/23/18 05/23/18 Range/Units 04:55 04:55 04:55 WBC (4.0-11.0) K/uL RBC (4.50-5.90) M/uL Hgb (13.0-17.0) g/dL Hct (38.0-50.0) % MCV (80.0-98.0) fL MCH (27.0-32.0) pg MCHC (31.0-37.0) g/dL RDW Std Deviation (28.0-62.0) fl RDW Coeff of [place] (11.0-15.0) % Plt Count (150-400) K/uL MPV (7.40-12.00) fL Neut % (Auto) (48.0-80.0) % Lymph % (Auto) (16.0-40.0) % [place] % (Auto) (0.0-15.0) % Eos % (Auto) (0.0-7.0) % Baso % (Auto) (0.0-1.5) % Neut # (Auto) (1.4-5.7) K/uL Lymph # (Auto) (0.6-2.4) K/uL [place] # (Auto) (0.0-0.8) K/uL Eos # (Auto) (0.0-0.7) K/uL Baso # (Auto) (0.0-0.1) K/uL Nucleated RBC % /100WBC Nucleated RBCs # K/uL ESR 54 H (0-19) mm/hr INR Sodium 144 (136-148) mmol/L Potassium 4.5 (3.5-5.1) mmol/L Chloride 106 (98-107) mmol/L Carbon Dioxide 35.0 H (21.0-32.0) mmol/L BUN 43 H (7.0-18.0) mg/dL Creatinine 2.0 H (0.8-1.3) mg/dL Est Cr Clr Drug Dosing 30.44 mL/min Estimated GFR (MDRD) 32.5 ml/min Glucose 126 H (74-106) mg/dL POC Glucose (60-110) mg/dL Calcium 8.7 (8.5-10.1) mg/dL C-Reactive Protein 2.80 H (0.00-0.90) mg/dL 05/23/18 05/23/18 Range/Units 06:31 11:02 WBC (4.0-11.0) K/uL RBC (4.50-5.90) M/uL Hgb (13.0-17.0) g/dL Hct (38.0-50.0) % MCV (80.0-98.0) fL MCH (27.0-32.0) pg MCHC (31.0-37.0) g/dL RDW Std Deviation (28.0-62.0) fl RDW Coeff of [place] (11.0-15.0) % Plt Count (150-400) K/uL MPV (7.40-12.00) fL Neut % (Auto) (48.0-80.0) % Lymph % (Auto) (16.0-40.0) % [place] % (Auto) (0.0-15.0) % Eos % (Auto) (0.0-7.0) % Baso % (Auto) (0.0-1.5) % Neut # (Auto) (1.4-5.7) K/uL Lymph # (Auto) (0.6-2.4) K/uL [place] # (Auto) (0.0-0.8) K/uL Eos # (Auto) (0.0-0.7) K/uL Baso # (Auto) (0.0-0.1) K/uL Nucleated RBC % /100WBC Nucleated RBCs # K/uL ESR (0-19) mm/hr INR Sodium (136-148) mmol/L Potassium (3.5-5.1) mmol/L Chloride (98-107) mmol/L Carbon Dioxide (21.0-32.0) mmol/L BUN (7.0-18.0) mg/dL Creatinine (0.8-1.3) mg/dL Est Cr Clr Drug Dosing mL/min Estimated GFR (MDRD) ml/min Glucose (74-106) mg/dL POC Glucose 129 H 161 H (60-110) mg/dL Calcium (8.5-10.1) mg/dL C-Reactive Protein (0.00-0.90) mg/dL Med Orders - Current: Current Medications Discontinued Medications Acetaminophen (Tylenol) 650 mg PO Q4H PRN PRN Reason: Pain Last Admin: 05/22/18 19:18 Dose: 650 mg Albuterol (Proventil Neb Soln) 2.5 mg NEB Q4H PRN PRN Reason: Shortness of Breath Aspirin (Halfprin) 81 mg PO DAILY [facility] Last Admin: 05/23/18 09:13 Dose: 81 mg Ferrous Sulfate (Ferrous Sulfate) 325 mg PO TID [facility] Last Admin: 05/23/18 06:03 Dose: 325 mg Finasteride (Proscar) 5 mg PO DAILY [facility] Last Admin: 05/23/18 09:05 Dose: Not Given Furosemide (Lasix) 80 mg PO BIDDIURETIC [facility] Furosemide (Lasix) 80 mg PO BIDDIURETIC [facility] Last Admin: 05/23/18 09:02 Dose: 80 mg Insulin Aspart (Novolog) 0 unit SUBCUT TIDAC [facility]; Protocol Last Admin: 05/23/18 09:03 Dose: Not Given Losartan Potassium (Cozaar) 100 mg PO DAILY [facility] Last Admin: 05/23/18 09:06 Dose: Not Given Melatonin (Melatonin) 3 mg PO BEDTIME [facility] Last Admin: 05/22/18 20:29 Dose: 3 mg Metoprolol Succinate (Toprol Xl) 12.5 mg PO BID [facility] Last Admin: 05/23/18 10:02 Dose: Not Given Ondansetron HCl (Zofran) 4 mg IVPUSH Q4H PRN PRN Reason: Nausea Pantoprazole Sodium (Protonix) 40 mg PO DAILY [facility] Last Admin: 05/23/18 09:13 Dose: 40 mg Budesonide/Formoterol 160-4.5 Mcg/Puff 6 Gm Inhaler 0 each INH Q12HR [facility] Last Admin: 05/23/18 09:20 Dose: Not Given Sodium Chloride (Saline Flush) 2.5 ml FLUSH ASDIRECTED PRN PRN Reason: Keep Vein Open Spironolactone (Aldactone) 12.5 mg PO DAILY [facility] Last Admin: 05/23/18 10:02 Dose: Not Given Tamsulosin HCl (Flomax) 0.4 mg PO BEDTIME [facility] Last Admin: 05/22/18 20:29 Dose: 0.4 mg Trazodone HCl (Trazodone) 50 mg PO BEDTIME [facility] Last Admin: 05/22/18 20:29 Dose: 50 mg
[2018-05-23 11:26] VITALS: BP 123/64
== END 2018-05-23 14:00 | disposition home health service (06) ==
LOC: MW.ED 09:27 → MW.MS 14:00
PROVIDERS: ADMIT Internal Medicine; ATTEND Internal Medicine
DX: M25.461 Effusion, right knee (principal); R53.1 Weakness; D64.9 Anemia, unspecified; I11.0 Hypertensive heart disease with heart failure; I50.9 Heart failure, unspecified; E11.9 Type 2 diabetes mellitus without complications; E66.01 Morbid (severe) obesity due to excess calories; Z68.41 Body mass index [BMI] 40.0-44.9, adult; I48.0 Paroxysmal atrial fibrillation; Z87.891 Personal history of nicotine dependence; Z79.01 Long term (current) use of anticoagulants; Z79.4 Long term (current) use of insulin; Z79.82 Long term (current) use of aspirin; Z79.899 Other long term (current) drug therapy; Z96.651 Presence of right artificial knee joint; Z99.81 Dependence on supplemental oxygen; Z88.5 Allergy status to narcotic agent
CPT/HCPCS: 36415; 73560; 73590; 80048; 80053; 82962; 85025; 85610; 85652; 86140; 93971; 97161; 99285; A9270; G0378; 99283

== ENCOUNTER 2018-06-23 19:34 | Emergency (ER) | payer MEDICARE, OTHER ==
[2018-06-23] MEDS ORDERED: Sodium Chloride 0.9% 2.5 ML Syringe FLUSH PRN (19:35)
[2018-06-23] MEDS ORDERED: Sodium Chloride 0.9% 10 ML Syringe FLUSH PRN (19:35)
--- NOTE | 2018-06-23 19:50 | EDM.PDOC ---
ED HPI GENERAL MEDICAL PROBLEM - General Chief Complaint: General Stated Complaint: PAIN ALL OVER BODY Time Seen by Provider: 06/23/18 19:36 Source of Information: Reports: Patient, EMS - History of Present Illness INITIAL COMMENTS - FREE TEXT/NARRATIVE: HISTORY AND PHYSICAL: History of present illness: [Patient presents via EMS He has complaints of bilateral upper extremity pain myalgias pain in all extremities, and plains of feeling short of breath and general malaise Denies fever nausea vomiting chills sweats headache dizziness or palpitation no bowel or urine symptoms ] Review of systems: As per history of present illness and below otherwise all systems reviewed and negative. Past medical history: As per history of present illness and as reviewed below otherwise noncontributory. Surgical history: As per history of present illness and as reviewed below otherwise noncontributory. Social history: No reported history of drug or alcohol abuse. Family history: As per history of present illness and as reviewed below otherwise noncontributory. Physical exam: HEENT: Atraumatic, normocephalic, pupils reactive, negative for conjunctival pallor or scleral icterus, mucous membranes moist, throat clear, neck supple, nontender, trachea midline. Lungs: Clear to auscultation, breath sounds equal bilaterally, chest nontender. Heart: S1S2, regular, negative for clicks, rubs, or JVD. Abdomen: Soft, nondistended, nontender. Negative for masses or hepatosplenomegaly. Negative for costovertebral tenderness. Pelvis: Stable nontender. Genitourinary: Deferred. Rectal: Deferred. Extremities: Atraumatic, negative for cords or calf pain. Neurovascular unremarkable. Neuro: Awake, alert, oriented. Cranial nerves II through XII unremarkable. Cerebellum unremarkable. Motor and sensory unremarkable throughout. Exam nonfocal. Diagnostics: [CBC CMP UA lipase troponin BN peptide INR cultures 2 Chest 1 view EKG Guaiac stool Therapeutics: [Normal saline Solu-Medrol 125 mg IV Normal saline] 2 units O-negative 2 units crossmatch blood Impression: [Hypoxia Home oxygen dependent generally 2 L required Supratherapeutic INR reported as 10 Anemia hemoglobin 4 Hypotension and tachycardia secondary to above Right pleural effusion-will follow radiology interpretation Pain/myalgias Renal insufficiency Chronic history at baseline Definitive disposition and diagnosis as appropriate pending reevaluation and review of above. 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 Generalized Pain Score (Numeric/FACES): 10 - Related Data Allergies Allergy/AdvReac Type Severity Reaction Status Date / Time morphine Allergy Itching Verified 06/23/18 19:38 Home Meds: Home Meds Furosemide [Lasix] 80 mg PO BID 07/12/17 [History] Insulin Detemir [Levemir Flextouch] 55 unit SUBCUT BEDTIME 07/12/17 [History] Spironolactone [Aldactone] 12.5 mg PO DAILY 07/12/17 [History] Acetaminophen 500 mg PO Q6HR PRN 05/22/18 [History] Albuterol Sulfate 1 inh INH Q4H PRN 05/22/18 [History] Ammonium Lactate 1 applic TOP BID 05/22/18 [History] Aspirin [Halfprin] 81 mg PO DAILY 05/22/18 [History] Blood Sugar Diagnostic [Accu-Chek Suha Plus] 1 applic TOP ASDIRECTED 05/22/18 [ History] Budesonide/Formoterol [Symbicort 160-4.5 MCG] 2 inhalation INH Q12HR 05/22/18 [ History] Ferrous Sulfate 325 mg PO TID 05/22/18 [History] Finasteride 5 mg PO DAILY 05/22/18 [History] Insulin Aspart [NovoLOG] 10 unit SUBCUT TIDMEALS 05/22/18 [History] Lancets [Techlite Lancets] 1 each ASDIRECTED 05/22/18 [History] Losartan [Cozaar] 100 mg PO DAILY 05/22/18 [History] Melatonin 5 mg PO BEDTIME 05/22/18 [History] Metoprolol Succinate 12.5 mg PO BID 05/22/18 [History] Pantoprazole [ProTONIX] 40 mg PO DAILY 05/22/18 [History] Potassium Chloride 20 meq PO DAILY 05/22/18 [History] Tamsulosin [Flomax] 0.4 mg PO BEDTIME 05/22/18 [History] Warfarin [Coumadin] 5 mg PO DAILY 05/22/18 [History] traZODone HCl [Trazodone HCl] 50 mg PO BEDTIME 05/22/18 [History] Past Medical History HEENT History: Reports: Hard of Hearing, Impaired Vision Other HEENT History: wears glasses, top denture, annalisa hearing aids Cardiovascular History: Reports: Afib, Heart Failure, High Cholesterol, Hypertension, SOB on Exertion Respiratory History: Reports: SOB, Other (See Below) Gastrointestinal History: Reports: Other (See Below) Other Gastrointestinal History: occasional heartburn Genitourinary History: Reports: Renal Calculus Other Genitourinary History: hx kidney stones Musculoskeletal History: Reports: Arthritis, Osteoarthritis Neurological History: Reports: None Psychiatric History: Reports: None Endocrine/Metabolic History: Reports: Diabetes, Type II, Obesity/BMI 30+ Hematologic History: Reports: None Immunologic History: Reports: None Oncologic (Cancer) History: Reports: None Dermatologic History: Reports: None - Infectious Disease History Infectious Disease History: Reports: Chicken Pox, Measles, Mumps - Past Surgical History Head Surgeries/Procedures: Reports: None HEENT Surgical History: Reports: None Musculoskeletal Surgical History: Reports: Arthroscopic Knee, Knee Replacement Social & Family History - Family History Family Medical History: Noncontributory - Tobacco Use Smoking Status *Q: Never Smoker - Caffeine Use Caffeine Use: Reports: Coffee - Recreational Drug Use Recreational Drug Use: No - Living Situation & Occupation Living situation: Reports: Alone Occupation: Retired ED ROS GENERAL - Review of Systems Review Of Systems: See Below ED EXAM, GENERAL - Physical Exam Exam: See Below Course - Vital Signs Last Recorded V/S: Last Vital Signs Temp 97.9 F 06/23/18 19:36 Pulse 86 06/23/18 21:00 Resp 26 H 06/23/18 21:00 BP 93/43 L 06/23/18 21:00 Pulse Ox 100 06/23/18 21:00 - Orders/Labs/Meds Orders: Active Orders 24 hr Category Date Time Status EKG Documentation Completion [RC] STAT Care 06/23/18 19:35 Active RT Aerosol Therapy [RC] ASDIRECTED Care 06/23/18 20:05 Active B-TYPE NATRIURETIC PEPTIDE,BNP [CHEM] Stat Lab 06/23/18 19:44 Received CULTURE BLOOD [BC] Stat Lab 06/23/18 20:31 Results CULTURE BLOOD [BC] Stat Lab 06/23/18 20:35 Received D-DIMER QUANTITATIVE [COAG] Stat Lab 06/23/18 19:44 Received Guaiac [OCCULT BLOOD DIAGNOSTIC] [OP] Stat Lab 06/23/18 21:00 Ordered PACKED CELLS [RED BLOOD CELLS LP] [BBK] Stat Lab 06/23/18 20:31 Received TYPE AND SCREEN [BBK] Stat Lab 06/23/18 20:31 Received UA RFX ELVIA AND CULT IF INDIC [URIN] Stat Lab 06/23/18 19:35 Ordered Sodium Chloride 0.9% [Normal Saline] 1,000 ml Med 06/23/18 20:15 Active IV STAT Sodium Chloride 0.9% [Saline Flush] Med 06/23/18 19:35 Active 10 ml FLUSH ASDIRECTED PRN Sodium Chloride 0.9% [Saline Flush] Med 06/23/18 19:35 Active 2.5 ml FLUSH ASDIRECTED PRN Blood Culture x2 Reflex Set [OM.PC] Stat Oth 06/23/18 19:50 Ordered Saline Lock Insert [OM.PC] Stat Oth 06/23/18 19:35 Ordered Medication Orders Sodium Chloride (Normal Saline) 1,000 mls @ 80 mls/hr IV STAT BLANCA Last Admin: 06/23/18 20:35 Dose: 80 mls/hr Sodium Chloride (Saline Flush) 10 ml FLUSH ASDIRECTED PRN PRN Reason: Keep Vein Open Last Admin: 06/23/18 20:39 Dose: 10 ml Sodium Chloride (Saline Flush) 2.5 ml FLUSH ASDIRECTED PRN PRN Reason: Keep Vein Open Last Admin: 06/23/18 20:39 Dose: 2.5 ml Labs: Laboratory Tests 06/23/18 06/23/18 06/23/18 Range/Units 19:37 19:44 19:44 WBC 16.61 H (4.0-11.0) K/uL RBC 1.36 L (4.50-5.90) M/uL Hgb 3.9 L* (13.0-17.0) g/dL Hct 13.6 L (38.0-50.0) % MCV 100.0 H (80.0-98.0) fL MCH 28.7 (27.0-32.0) pg MCHC 28.7 L (31.0-37.0) g/dL RDW Std Deviation 72.1 H (28.0-62.0) fl RDW Coeff of [place] 21 H (11.0-15.0) % Plt Count 219 (150-400) K/uL MPV 9.70 (7.40-12.00) fL Neut % (Auto) 83.8 H (48.0-80.0) % Lymph % (Auto) 10.5 L (16.0-40.0) % Amelia % (Auto) 5.5 (0.0-15.0) % Eos % (Auto) 0.1 (0.0-7.0) % Baso % (Auto) 0.1 (0.0-1.5) % Neut # (Auto) 13.9 H (1.4-5.7) K/uL Lymph # (Auto) 1.7 (0.6-2.4) K/uL Amelia # (Auto) 0.9 H (0.0-0.8) K/uL Eos # (Auto) 0.0 (0.0-0.7) K/uL Baso # (Auto) 0.0 (0.0-0.1) K/uL Nucleated RBC % 0.0 /100WBC Nucleated RBCs # 0 K/uL INR 10.36 H* Lactate (0.20-2.00) mmol/L Sodium 140 (136-148) mmol/L Potassium 4.7 (3.5-5.1) mmol/L Chloride 105 (98-107) mmol/L Carbon Dioxide 23.0 (21.0-32.0) mmol/L BUN 130 H (7.0-18.0) mg/dL Creatinine 3.4 H (0.8-1.3) mg/dL Est Cr Clr Drug Dosing 17.91 mL/min Estimated GFR (MDRD) 17.6 ml/min Glucose 160 H (74-106) mg/dL Calcium 8.4 L (8.5-10.1) mg/dL Total Bilirubin 0.5 (0.2-1.0) mg/dL AST 29 (15-37) IU/L ALT 13 L (14-63) IU/L Alkaline Phosphatase 45 L (46-116) U/L Creatine Kinase 262 (26-308) U/L Troponin I 4.676 H* (0.000-0.056) ng/mL Total Protein 5.1 L (6.4-8.2) g/dL Albumin 2.6 L (3.4-5.0) g/dL Globulin 2.5 L (2.6-4.0) g/dL Albumin/Globulin Ratio 1.0 (0.9-1.6) 06/23/18 Range/Units 20:31 WBC (4.0-11.0) K/uL RBC (4.50-5.90) M/uL Hgb (13.0-17.0) g/dL Hct (38.0-50.0) % MCV (80.0-98.0) fL MCH (27.0-32.0) pg MCHC (31.0-37.0) g/dL RDW Std Deviation (28.0-62.0) fl RDW Coeff of [place] (11.0-15.0) % Plt Count (150-400) K/uL MPV (7.40-12.00) fL Neut % (Auto) (48.0-80.0) % Lymph % (Auto) (16.0-40.0) % Amelia % (Auto) (0.0-15.0) % Eos % (Auto) (0.0-7.0) % Baso % (Auto) (0.0-1.5) % Neut # (Auto) (1.4-5.7) K/uL Lymph # (Auto) (0.6-2.4) K/uL Amelia # (Auto) (0.0-0.8) K/uL Eos # (Auto) (0.0-0.7) K/uL Baso # (Auto) (0.0-0.1) K/uL Nucleated RBC % /100WBC Nucleated RBCs # K/uL INR Lactate 1.3 (0.20-2.00) mmol/L Sodium (136-148) mmol/L Potassium (3.5-5.1) mmol/L Chloride (98-107) mmol/L Carbon Dioxide (21.0-32.0) mmol/L BUN (7.0-18.0) mg/dL Creatinine (0.8-1.3) mg/dL Est Cr Clr Drug Dosing mL/min Estimated GFR (MDRD) ml/min Glucose (74-106) mg/dL Calcium (8.5-10.1) mg/dL Total Bilirubin (0.2-1.0) mg/dL AST (15-37) IU/L ALT (14-63) IU/L Alkaline Phosphatase (46-116) U/L Creatine Kinase (26-308) U/L Troponin I (0.000-0.056) ng/mL Total Protein (6.4-8.2) g/dL Albumin (3.4-5.0) g/dL Globulin (2.6-4.0) g/dL Albumin/Globulin Ratio (0.9-1.6) Meds: Medications Generic Name Dose Route Start Last Admin Trade Name Nora PRN Reason Stop Dose Admin Sodium Chloride 1,000 mls @ 80 mls/hr 06/23/18 20:15 06/23/18 20:35 Normal Saline IV 80 mls/hr STAT BLANCA Administration Sodium Chloride 10 ml 06/23/18 19:35 06/23/18 20:39 Saline Flush FLUSH 10 ml ASDIRECTED PRN Administration Keep Vein Open Sodium Chloride 2.5 ml 06/23/18 19:35 06/23/18 20:39 Saline Flush FLUSH 2.5 ml ASDIRECTED PRN Administration Keep Vein Open Discontinued Medications Generic Name Dose Route Start Last Admin Trade Name Nora PRN Reason Stop Dose Admin Albuterol/Ipratropium 3 ml 06/23/18 20:04 Duoneb 3.0-0.5 Mg/3 Ml NEB 06/23/18 20:05 ONETIME ONE Phytonadione 10 mg/ Sodium 51 mls @ 100 mls/hr 06/23/18 20:55 06/23/18 21:34 Chloride IV 06/23/18 21:25 100 mls/hr NOW ONE Administration Methylprednisolone Sodium Succinate 125 mg 06/23/18 20:04 06/23/18 20:36 Solu-Medrol IVPUSH 06/23/18 20:05 125 mg ONETIME ONE Administration Departure - Departure Time of Disposition: 21:42 Disposition: DC/Tfer to Acute Hospital 02 Condition: Poor Clinical Impression: GI bleed, Elevated troponin, Supratherapeutic INR - Discharge Information Referrals: PCP,None [Primary Care Provider] - Forms: ED Department Discharge - My Orders Last 24 Hours: My Active Orders 06/23/18 19:44 B-TYPE NATRIURETIC PEPTIDE,BNP [CHEM] Stat D-DIMER QUANTITATIVE [COAG] Stat 06/23/18 19:50 Blood Culture x2 Reflex Set [OM.PC] Stat 06/23/18 20:05 RT Aerosol Therapy [RC] ASDIRECTED 06/23/18 20:15 Sodium Chloride 0.9% [Normal Saline] 1,000 ml IV STAT 06/23/18 20:31 CULTURE BLOOD [BC] Stat PACKED CELLS [RED BLOOD CELLS LP] [BBK] Stat TYPE AND SCREEN [BBK] Stat 06/23/18 20:35 CULTURE BLOOD [BC] Stat 06/23/18 21:00 Guaiac [OCCULT BLOOD DIAGNOSTIC] [OP] Stat - Assessment/Plan Last 24 Hours: My Active Orders 06/23/18 19:44 B-TYPE NATRIURETIC PEPTIDE,BNP [CHEM] Stat D-DIMER QUANTITATIVE [COAG] Stat 06/23/18 19:50 Blood Culture x2 Reflex Set [OM.PC] Stat 06/23/18 20:05 RT Aerosol Therapy [RC] ASDIRECTED 06/23/18 20:15 Sodium Chloride 0.9% [Normal Saline] 1,000 ml IV STAT 06/23/18 20:31 CULTURE BLOOD [BC] Stat PACKED CELLS [RED BLOOD CELLS LP] [BBK] Stat TYPE AND SCREEN [BBK] Stat 06/23/18 20:35 CULTURE BLOOD [BC] Stat 06/23/18 21:00 Guaiac [OCCULT BLOOD DIAGNOSTIC] [OP] Stat
[2018-06-23] MEDS ORDERED: Albuterol/Ipratropium 3.0-0.5 MG/3 ML Neb Soln NEB ONE (20:04)
[2018-06-23] MEDS ORDERED: methylPREDNISolone Sodium Succinate 125 MG/2 ML SDV IVPUSH ONE (20:04)
[2018-06-23] MEDS ORDERED: Sodium Chloride 0.9% 1,000 ML IV SCH (20:15)
[2018-06-23] MEDS ORDERED: Sodium Chloride 0.9% 1,000 ML IV ONE ×2 (20:33→21:33)
--- NOTE | 2018-06-23 20:42 | CR ---
INDICATION: generalized pain TECHNIQUE: Chest 1 view. COMPARISON: 07/06/17. FINDINGS: Cardiovascular and mediastinum: Heart size and vasculature are normal in caliber and appearance. Mediastinum is within normal limits. Lungs and pleural spaces: Lungs are clear. No sign of infiltrate or mass. No sign of pleural effusion. No pneumothorax. Bones and soft tissues: No significant findings. IMPRESSION: Unremarkable chest. Dictated by: Sesar Avendano MD @ 06/23/2018 20:41:39 (Electronically Signed)
[2018-06-23] MEDS ORDERED: Phytonadione 10 MG in Sodium Chloride 0.9% 50 ML IV ONE (20:55)
[2018-06-23 23:03] VITALS: BP 126/54
== END 2018-06-23 22:25 ==
LOC: MW.ED 19:34
DX: K92.2 Gastrointestinal hemorrhage, unspecified (principal); R79.89 Other specified abnormal findings of blood chemistry; R79.1 Abnormal coagulation profile; I95.9 Hypotension, unspecified; J90 Pleural effusion, not elsewhere classified; D64.9 Anemia, unspecified; N28.9 Disorder of kidney and ureter, unspecified; R09.02 Hypoxemia; E11.9 Type 2 diabetes mellitus without complications; I10 Essential (primary) hypertension; Z99.81 Dependence on supplemental oxygen; Z88.5 Allergy status to narcotic agent; Z79.899 Other long term (current) drug therapy; Z79.4 Long term (current) use of insulin; Z79.01 Long term (current) use of anticoagulants
CPT/HCPCS: 71045; 80053; 81001; 82550; 83605; 83880; 84484; 85025; 85379; 85610; 87040; 93005; 94640; 96360; 96361; 96365; 96375; 99291; 99292; J2930; J3430; J7040; J7050; P9016; J7620-GY

== ENCOUNTER 2018-07-14 14:26 | Observation (INO) | payer MEDICARE, OTHER ==
[2018-07-14] MEDS ORDERED: Sodium Chloride 0.9% 10 ML Syringe FLUSH PRN ×2 (14:42→15:12)
[2018-07-14] MEDS ORDERED: Sodium Chloride 0.9% 2.5 ML Syringe FLUSH PRN ×2 (14:42→15:12)
--- NOTE | 2018-07-14 14:57 | EDM.PDOC ---
ED HPI GENERAL MEDICAL PROBLEM - General Chief Complaint: General Stated Complaint: BETHAL PT Time Seen by Provider: 07/14/18 14:29 Source of Information: Reports: Patient History Limitations: Reports: No Limitations - History of Present Illness INITIAL COMMENTS - FREE TEXT/NARRATIVE: History of present illness: []Patient was sent from Dr. Quiroga's office for anemia. Patient was in [facility] on 06/23 for anemia and transfused. Patient has A. fib on Coumadin which was held at that time. Patient had acute kidney injury due to volume depletion, which has improved. Patient has an EF of 60% he has had an EGD in [place] that did not show any source of bleeding. CT of his chest showed no evidence of thoracic aortic aneurysm or dissection abdomen and pelvis showed gastric diverticulum without a defining mass Review of systems: As per history of present illness and below otherwise all systems reviewed and negative. Past medical history: As per history of present illness and as reviewed below otherwise noncontributory. Surgical history: As per history of present illness and as reviewed below otherwise noncontributory. Social history: No reported history of drug or alcohol abuse. Family history: As per history of present illness and as reviewed below otherwise noncontributory. Physical exam: General: Well developed, well nourished in NAD HEENT: Atraumatic, normocephalic, pupils reactive, negative for conjunctival pallor or scleral icterus, mucous membranes moist, throat clear, neck supple, nontender, trachea midline. Lungs: Clear to auscultation, breath sounds equal bilaterally, chest nontender. Heart: S1S2, regular, negative for clicks, rubs, or JVD. Abdomen: NABS, Soft, nondistended, nontender. Negative for masses or hepatosplenomegaly. Negative for costovertebral tenderness. Pelvis: Stable nontender. Genitourinary: Deferred. Rectal: Black stool guaiac positive Extremities: Atraumatic, negative for cords or calf pain. Neurovascular unremarkable. Neuro: Awake, alert, oriented. Cranial nerves II through XII unremarkable. Cerebellum unremarkable. Motor and sensory unremarkable throughout. Exam nonfocal. Skin:warm and dry Diagnostics: Type and screen, coags, Therapeutics: Transfuse blood ED Course: Consulted Dr. Lee for possible admit, he will evaluate patient and the ED. Consulted Dr. Babin. Impression: Lower GI bleed Prescriptions: None Plan: Admit to [facility] on some for blood transfusion patient refuses to go back to [place] Definitive disposition and diagnosis as appropriate pending reevaluation and review of above. - Related Data Allergies Allergy/AdvReac Type Severity Reaction Status Date / Time morphine Allergy Itching Verified 07/14/18 14:39 Home Meds: Home Meds Furosemide [Lasix] 80 mg PO BID 07/12/17 [History] Spironolactone [Aldactone] 12.5 mg PO BID 07/12/17 [History] Acetaminophen 1,000 mg PO TID 05/22/18 [History] Albuterol Sulfate 2.5 mg NEB Q4H PRN 05/22/18 [History] Ammonium Lactate 1 applic TOP TID PRN 05/22/18 [History] Aspirin [Halfprin] 81 mg PO DAILY 05/22/18 [History] Budesonide/Formoterol [Symbicort 160-4.5 MCG] 2 inhalation INH Q12HR 05/22/18 [ History] Ferrous Sulfate 325 mg PO TIDMEALS 05/22/18 [History] Finasteride 5 mg PO DAILY 05/22/18 [History] Losartan [Cozaar] 100 mg PO DAILY 05/22/18 [History] Melatonin 5 mg PO BEDTIME 05/22/18 [History] Pantoprazole [ProTONIX] 40 mg PO DAILY 05/22/18 [History] Potassium Chloride 20 meq PO BID 05/22/18 [History] Tamsulosin [Flomax] 0.4 mg PO BEDTIME 05/22/18 [History] traZODone HCl [Trazodone HCl] 50 mg PO BEDTIME 05/22/18 [History] Alum Hydrox/Mag Hydrox/Simeth [Maalox Advanced] 30 ml PO Q6H PRN 07/14/18 [ History] Folic Acid 1 mg PO DAILY 07/14/18 [History] Insulin Degludec [Tresiba] 55 unit SUBCUT BEDTIME 07/14/18 [History] Insulin Lispro [Humalog Kwikpen U-100] 0 unit SUBCUT .PER SLIDING SCALE [History] Insulin Lispro [Humalog Kwikpen U-100] 10 unit SUBCUT TIDMEALS 07/14/18 [History ] Magnesium Hydroxide [Milk of Magnesia] 30 ml PO Q72H PRN 07/14/18 [History] Metoprolol Tartrate 25 mg PO BID 07/14/18 [History] Miconazole Nitrate [Anti-Fungal] 1 applic TOP Q12H PRN 07/14/18 [History] Nitroglycerin 0.4 mg SL .EVERY 5 MINUTES PRN MDD 3 TABS, GO TO ER IF STILL PAIN 07/14/18 [History] Nystatin 1 applic TOP BID 07/14/18 [History] Polyethylene Glycol 3350 [MiraLAX] 17 gm PO DAILY 07/14/18 [History] metOLazone [Metolazone] 5 mg PO DAILY 07/14/18 [History] traMADol [Ultram] 50 mg PO TID PRN 07/14/18 [History] Past Medical History HEENT History: Reports: Hard of Hearing, Impaired Vision Other HEENT History: wears glasses, top denture, annalisa hearing aids Cardiovascular History: Reports: Afib, Heart Failure, High Cholesterol, Hypertension, SOB on Exertion Respiratory History: Reports: PE, SOB, Other (See Below) Gastrointestinal History: Reports: GERD, Other (See Below) Other Gastrointestinal History: occasional heartburn Genitourinary History: Reports: Renal Calculus Other Genitourinary History: hx kidney stones Musculoskeletal History: Reports: Arthritis, Back Pain, Chronic, Osteoarthritis , Other (See Below) Other Musculoskeletal History: Chronic bilateral knee pain , localized edema Neurological History: Reports: None Psychiatric History: Reports: None Endocrine/Metabolic History: Reports: Diabetes, Type II, Obesity/BMI 30+ Hematologic History: Reports: None Immunologic History: Reports: None Oncologic (Cancer) History: Reports: None Dermatologic History: Reports: None - Infectious Disease History Infectious Disease History: Reports: Chicken Pox, Measles, Mumps - Past Surgical History Head Surgeries/Procedures: Reports: None HEENT Surgical History: Reports: None Cardiovascular Surgical History: Reports: None Respiratory Surgical History: Reports: None GI Surgical History: Reports: None Male Surgical History: Reports: None Endocrine Surgical History: Reports: None Neurological Surgical History: Reports: None Musculoskeletal Surgical History: Reports: Arthroscopic Knee, Knee Replacement Oncologic Surgical History: Reports: None Dermatological Surgical History: Reports: None Social & Family History - Family History Family Medical History: Noncontributory - Tobacco Use Smoking Status *Q: Former Smoker Used Tobacco, but Quit: Yes Month/Year Tobacco Last Used: 10 years - Caffeine Use Caffeine Use: Reports: Coffee - Recreational Drug Use Recreational Drug Use: No - Living Situation & Occupation Living situation: Reports: Alone Occupation: Retired ED ROS GENERAL - Review of Systems Review Of Systems: ROS reveals no pertinent complaints other than HPI. ED EXAM, GENERAL - Physical Exam Exam: See Below (See history of present illness) Course - Vital Signs Last Recorded V/S: Last Vital Signs Temp 97.9 F 07/14/18 14:33 Pulse 67 07/14/18 14:33 Resp 20 07/14/18 14:33 BP 112/48 L 07/14/18 14:33 Pulse Ox 96 07/14/18 15:05 - Orders/Labs/Meds Orders: Active Orders 24 hr Category Date Time Status Patient Status [ADT] Stat ADT 07/14/18 16:05 Active RED BLOOD CELLS LP [BBK] Stat Lab 07/14/18 15:18 Results TYPE AND SCREEN [BBK] Stat Lab 07/14/18 15:18 Results Sodium Chloride 0.9% [Saline Flush] Med 07/14/18 15:12 Active 10 ml FLUSH ASDIRECTED PRN Sodium Chloride 0.9% [Saline Flush] Med 07/14/18 15:12 Active 2.5 ml FLUSH ASDIRECTED PRN Saline Lock Insert [OM.PC] Stat Oth 07/14/18 14:42 Ordered Saline Lock Insert [OM.PC] Stat Oth 07/14/18 15:12 Ordered Medication Orders Acetaminophen (Tylenol) 650 mg PO Q4H PRN PRN Reason: Pain (mild 1-3) Pantoprazole Sodium 40 mg/ (Sodium Chloride) 10 mls @ 200 mls/hr IV Q12HR BLANCA Ondansetron HCl (Zofran) 4 mg IVPUSH Q4H PRN PRN Reason: Nausea Sodium Chloride (Saline Flush) 10 ml FLUSH ASDIRECTED PRN PRN Reason: Keep Vein Open Sodium Chloride (Saline Flush) 2.5 ml FLUSH ASDIRECTED PRN PRN Reason: Keep Vein Open Labs: Laboratory Tests 07/14/18 07/14/18 Range/Units 15:18 15:26 INR 1.06 APTT 25.4 (18.6-31.3) SEC Blood Type O POSITIVE Antibody Screen NEGATIVE Crossmatch See Detail Meds: Medications Generic Name Dose Route Start Last Admin Trade Name Freq PRN Reason Stop Dose Admin Acetaminophen 650 mg 07/14/18 16:20 Tylenol PO Q4H PRN Pain (mild 1-3) Pantoprazole Sodium 40 mg/ 10 mls @ 200 mls/hr 07/14/18 21:00 Sodium Chloride IV Q12HR BLANCA Ondansetron HCl 4 mg 07/14/18 16:20 Zofran IVPUSH Q4H PRN Nausea Sodium Chloride 10 ml 07/14/18 15:12 Saline Flush FLUSH ASDIRECTED PRN Keep Vein Open Sodium Chloride 2.5 ml 07/14/18 15:12 Saline Flush FLUSH ASDIRECTED PRN Keep Vein Open Discontinued Medications Generic Name Dose Route Start Last Admin Trade Name Freq PRN Reason Stop Dose Admin Furosemide 80 mg 07/14/18 16:25 Lasix IVPUSH 07/14/18 16:26 NOW ONE Pantoprazole Sodium 80 mg 07/14/18 15:23 07/14/18 15:53 Protonix Iv IVPUSH 07/14/18 15:24 80 mg .BOLUS ONE Administration Sodium Chloride 10 ml 07/14/18 14:42 Saline Flush FLUSH ASDIRECTED PRN Keep Vein Open Sodium Chloride 2.5 ml 07/14/18 14:42 Saline Flush FLUSH ASDIRECTED PRN Keep Vein Open Departure - Departure Time of Disposition: 17:29 Disposition: Refer to Observation Condition: Good Clinical Impression: Lower GI bleed, Anemia - Discharge Information *PRESCRIPTION DRUG MONITORING PROGRAM REVIEWED*: No *COPY OF PRESCRIPTION DRUG MONITORING REPORT IN PATIENT XAVIER: No - My Orders Last 24 Hours: My Active Orders 07/14/18 14:42 Saline Lock Insert [OM.PC] Stat 07/14/18 15:12 Sodium Chloride 0.9% [Saline Flush] 10 ml FLUSH ASDIRECTED PRN Sodium Chloride 0.9% [Saline Flush] 2.5 ml FLUSH ASDIRECTED PRN Saline Lock Insert [OM.PC] Stat 07/14/18 15:18 RED BLOOD CELLS LP [BBK] Stat TYPE AND SCREEN [BBK] Stat 07/14/18 16:05 Patient Status [ADT] Stat - Assessment/Plan Last 24 Hours: My Active Orders 07/14/18 14:42 Saline Lock Insert [OM.PC] Stat 07/14/18 15:12 Sodium Chloride 0.9% [Saline Flush] 10 ml FLUSH ASDIRECTED PRN Sodium Chloride 0.9% [Saline Flush] 2.5 ml FLUSH ASDIRECTED PRN Saline Lock Insert [OM.PC] Stat 07/14/18 15:18 RED BLOOD CELLS LP [BBK] Stat TYPE AND SCREEN [BBK] Stat 07/14/18 16:05 Patient Status [ADT] Stat
[2018-07-14] MEDS ORDERED: Pantoprazole 40 MG Vial IVPUSH ONE (15:23)
[2018-07-14] MEDS ORDERED: Acetaminophen 325 MG Tab PO PRN (16:20)
[2018-07-14] MEDS ORDERED: Ondansetron 4 MG/2 ML SDV IVPUSH PRN (16:20)
[2018-07-14] MEDS ORDERED: Furosemide 40 MG/4 ML VIAL IVPUSH ONE (16:25)
--- NOTE | 2018-07-14 16:26 | PCM.HP ---
H&P History of Present Illness - General Date of Service: 07/14/18 Admit Problem/Dx: Admission Diagnosis/Problem Admission Diagnosis/Problem Anemia Source of Information: Patient, Family (sister at bedside) History Limitations: Reports: No Limitations (not a good historian, sister helps with history) - History of Present Illness Initial Comments - Free Text/Narative: This 77 sheila old male with pmh of HTN, Afib, DM type 2 and recent significant GI bleed with hgb 3.9 along with a NSTEMI 2 weeks ago was directed to the ED today from [facility] by Dr Quiroga due to worsening anemia and peripheral edema that is worsening despite PO diuretic use. Giovani is unsure why he is here, reports he overall is just not feeling well, slightly nauseated and mild abdominal pain. Hemoccult in the ED was positive and he was noted to have black tarry stools. I spoke with Dr Quiroga regarding request for admission. He reports he was transferred to [facility] from [facility] in [place]. He was treated there for supratherapeutic INR and GI bleed June 23. He had EGD which showed no bleeding source, did note large diverticulum in the fundus of the stomach. Colonoscopy was going to be done prior to DC, some confusion is noted as to why it wasn't done. [facility] documentation reports Giovani declined it but Giovani's sister reports she was told the Dr didn't want it. During this admission in [place], he had a NSTEMI, with troponin elevating to 9. This was thought to occur secondary to demand ischemia from severe anemia. He was treated with ASA, statin and beta terri. Dr Quiroga reports he has been diuresing him with Lasix 80 mg daily and did add Metalozone 1 week ago, but peripheral edema continues to worsen along with Cr which elevated from 1.7 to 2.8. BUN is 90. His Hgb has also dropped from 10.3 2 weeks ago to now 7. He is only taking ASA at [facility], warfarin and Plavix were held at discharge. ED, Dr Blackwell did speak with Dr Price regarding GI bleed and need for possible scoping. She recommended if further investigation were needed he should be transferred to higher level of care. Dr Lee and myself spoke with Giovani and his sister. At this time they understand we would not be able to do a colonoscopy. Giovani is ok with that at this time. He states He wants no "heroic" measures at this time and is agreeable for blood transfusion and attempt at getting peripheral edema off with Lasix. Giovani currently denies any chest pain, no shortness of breath. Intermittent abdominal pain with mild nausea. Reports BLE pain due to swelling, reports them feeling tight and bottom of his feet are tender. No urinary concerns, except he hasn't voided much today. No focal neurologic concerns. Just has generalized malaise. PCP, Dr Quiroga. Bilateral Leg Pain Score (Numeric/FACES): 6 Chest Pain Score (Numeric/FACES): 3 - Related Data Allergies/Adverse Reactions: Allergies Allergy/AdvReac Type Severity Reaction Status Date / Time morphine Allergy Itching Verified 07/14/18 14:39 Home Medications: Home Meds Furosemide [Lasix] 80 mg PO BID 07/12/17 [History] Spironolactone [Aldactone] 12.5 mg PO BID 07/12/17 [History] Acetaminophen 1,000 mg PO TID 05/22/18 [History] Albuterol Sulfate 2.5 mg NEB Q4H PRN 05/22/18 [History] Ammonium Lactate 1 applic TOP TID PRN 05/22/18 [History] Aspirin [Halfprin] 81 mg PO DAILY 05/22/18 [History] Budesonide/Formoterol [Symbicort 160-4.5 MCG] 2 inhalation INH Q12HR 05/22/18 [ History] Ferrous Sulfate 325 mg PO TIDMEALS 05/22/18 [History] Finasteride 5 mg PO DAILY 05/22/18 [History] Losartan [Cozaar] 100 mg PO DAILY 05/22/18 [History] Melatonin 5 mg PO BEDTIME 05/22/18 [History] Pantoprazole [ProTONIX] 40 mg PO DAILY 05/22/18 [History] Potassium Chloride 20 meq PO BID 05/22/18 [History] Tamsulosin [Flomax] 0.4 mg PO BEDTIME 05/22/18 [History] traZODone HCl [Trazodone HCl] 50 mg PO BEDTIME 05/22/18 [History] Alum Hydrox/Mag Hydrox/Simeth [Maalox Advanced] 30 ml PO Q6H PRN 07/14/18 [ History] Folic Acid 1 mg PO DAILY 07/14/18 [History] Insulin Degludec [Tresiba] 55 unit SUBCUT BEDTIME 07/14/18 [History] Insulin Lispro [Humalog Kwikpen U-100] 0 unit SUBCUT .PER SLIDING SCALE [History] Insulin Lispro [Humalog Kwikpen U-100] 10 unit SUBCUT TIDMEALS 07/14/18 [History ] Magnesium Hydroxide [Milk of Magnesia] 30 ml PO Q72H PRN 07/14/18 [History] Metoprolol Tartrate 25 mg PO BID 07/14/18 [History] Miconazole Nitrate [Anti-Fungal] 1 applic TOP Q12H PRN 07/14/18 [History] Nitroglycerin 0.4 mg SL .EVERY 5 MINUTES PRN MDD 3 TABS, GO TO ER IF STILL PAIN 07/14/18 [History] Nystatin 1 applic TOP BID 07/14/18 [History] Polyethylene Glycol 3350 [MiraLAX] 17 gm PO DAILY 07/14/18 [History] metOLazone [Metolazone] 5 mg PO DAILY 07/14/18 [History] traMADol [Ultram] 50 mg PO TID PRN 07/14/18 [History] Past Medical History HEENT History: Reports: Hard of Hearing, Impaired Vision Other HEENT History: wears glasses, top denture, annalisa hearing aids Cardiovascular History: Reports: Afib, Heart Failure, High Cholesterol, Hypertension, IN, SOB on Exertion Respiratory History: Reports: PE, SOB, Other (See Below) (Oxygen dependent, 2 L NC) Gastrointestinal History: Reports: GERD, Other (See Below) Other Gastrointestinal History: occasional heartburn Genitourinary History: Reports: Renal Calculus Other Genitourinary History: hx kidney stones Musculoskeletal History: Reports: Arthritis, Back Pain, Chronic, Osteoarthritis , Other (See Below) Other Musculoskeletal History: Chronic bilateral knee pain , localized edema Neurological History: Reports: None Psychiatric History: Reports: None Endocrine/Metabolic History: Reports: Diabetes, Type II, Obesity/BMI 30+ Hematologic History: Reports: None Immunologic History: Reports: None Oncologic (Cancer) History: Reports: None Dermatologic History: Reports: None - Infectious Disease History Infectious Disease History: Reports: Chicken Pox, Measles, Mumps - Past Surgical History Head Surgeries/Procedures: Reports: None HEENT Surgical History: Reports: None Cardiovascular Surgical History: Reports: None Respiratory Surgical History: Reports: None GI Surgical History: Reports: EGD Male Surgical History: Reports: None Endocrine Surgical History: Reports: None Neurological Surgical History: Reports: None Musculoskeletal Surgical History: Reports: Arthroscopic Knee, Knee Replacement Oncologic Surgical History: Reports: None Dermatological Surgical History: Reports: None Social & Family History - Family History Family Medical History: Noncontributory - Tobacco Use Smoking Status *Q: Former Smoker Used Tobacco, but Quit: Yes Month/Year Tobacco Last Used: 10 years - Caffeine Use Caffeine Use: Reports: Coffee - Recreational Drug Use Recreational Drug Use: No - Living Situation & Occupation Living situation: Reports: Alone Occupation: Retired H&P Review of Systems - Review of Systems: Review Of Systems: See Below General: Reports: Malaise, Weakness, Fatigue. Denies: Fever, Chills HEENT: Denies: Headaches, Post Nasal Drip, Vertigo Pulmonary: Denies: Shortness of Breath Cardiovascular: Reports: Edema (BLE, worsening.). Denies: Chest Pain, Orthopnea , Lightheadedness, Syncope Gastrointestinal: Reports: Abdominal Pain, Black Stool, Nausea. Denies: Diarrhea, Hematemesis, Vomiting Genitourinary: Reports: No Symptoms. Denies: Dysuria, Frequency, Burning Musculoskeletal: Reports: No Symptoms Skin: Reports: No Symptoms Neurological: Reports: No Symptoms Hematologic/Lymphatic: Reports: No Symptoms Immunologic: Reports: No Symptoms Exam - Exam Exam: See Below - Vital Signs Vital Signs: Last Vital Signs Temp 97.9 F 07/14/18 14:33 Pulse 67 07/14/18 14:33 Resp 20 07/14/18 14:33 BP 112/48 L 07/14/18 14:33 Pulse Ox 96 07/14/18 15:05 Weight: 135.896 kg - Exam Quality Assessment: Supplemental Oxygen (2 L NC) General: Alert, Oriented, Other (pallar) HEENT: Conjunctiva Clear, Mucosa Moist & Garber Neck: Supple, Full Range of Motion Lungs: Normal Respiratory Effort, Decreased Breath Sounds Cardiovascular: Regular Rate, Regular Rhythm, Normal S1, Normal S2 Back Exam: Normal Inspection, Full Range of Motion Extremities: Normal Range of Motion, Pedal Edema (+ 3 pitting edema to BLE, from mid thight extending distally to include feet.). No: Increased Warmth Skin: Warm, Dry, Intact, Other (some scant small bullae to shins notes due to edema.) Neuro Extensive - Mental Status: Alert, Oriented x3 Psychiatric: Alert, Normal Affect - Patient Data Lab Results Last 24 hrs: Laboratory Results - last 24 hr 07/14/18 Range/Units 15:26 INR 1.06 APTT 25.4 (18.6-31.3) SEC *Q Meaningful Use (ADM) - VTE *Q VTE Pharmacological Contraindications *Q: Risk of Bleeding - Problem List (1) Anemia SNOMED Code(s): 364420747 ICD Code: D64.9 - ANEMIA, UNSPECIFIED Status: Acute Current Visit: Yes Qualifiers: Anemia type: iron deficiency Iron deficiency anemia type: chronic blood loss Qualified Code(s): D50.0 - Iron deficiency anemia secondary to blood loss (chronic) (2) Lower GI bleed SNOMED Code(s): 84645348 ICD Code: K92.2 - GASTROINTESTINAL HEMORRHAGE, UNSPECIFIED Status: Acute Current Visit: Yes (3) CHF exacerbation SNOMED Code(s): 801478668 ICD Code: I50.9 - HEART FAILURE, UNSPECIFIED Status: Suspected Current Visit: No Qualifiers: Heart failure type: diastolic Qualified Code(s): I50.33 - Acute on chronic diastolic (congestive) heart failure (4) LOUISE (acute kidney injury) SNOMED Code(s): 37560061, 48522983 ICD Code: N17.9 - ACUTE KIDNEY FAILURE, UNSPECIFIED Status: Acute Current Visit: No (5) Generalized weakness SNOMED Code(s): 66534491 ICD Code: R53.1 - WEAKNESS Status: Acute Current Visit: No (6) Morbid obesity with BMI of 50.0-59.9, adult SNOMED Code(s): 616422070, 44900129104775 ICD Code: E66.01 - MORBID (SEVERE) OBESITY DUE TO EXCESS CALORIES; Z68.43 - BODY MASS INDEX (BMI) 50-59.9, ADULT Status: Acute Current Visit: No (7) A-fib SNOMED Code(s): 53691422 ICD Code: I48.91 - UNSPECIFIED ATRIAL FIBRILLATION Status: Chronic Current Visit: No Qualifiers: Atrial fibrillation type: paroxysmal Qualified Code(s): I48.0 - Paroxysmal atrial fibrillation (8) CHF (congestive heart failure) SNOMED Code(s): 71963077 ICD Code: I50.9 - HEART FAILURE, UNSPECIFIED Status: Chronic Current Visit: No (9) COPD (chronic obstructive pulmonary disease) SNOMED Code(s): 76556585 ICD Code: J44.9 - CHRONIC OBSTRUCTIVE PULMONARY DISEASE, UNSPECIFIED Status : Chronic Current Visit: No (10) DM type 2 (diabetes mellitus, type 2) SNOMED Code(s): 51752165 ICD Code: E11.9 - TYPE 2 DIABETES MELLITUS WITHOUT COMPLICATIONS Status: Chronic Current Visit: No Qualifiers: Diabetes mellitus nursing home insulin use: without nursing home use Diabetes mellitus complication status: without complication Qualified Code(s): E11.9 - Type 2 diabetes mellitus without complications (11) HTN (hypertension) SNOMED Code(s): 38318660 ICD Code: I10 - ESSENTIAL (PRIMARY) HYPERTENSION Status: Chronic Current Visit: No Qualifiers: Hypertension type: essential hypertension Qualified Code(s): I10 - Essential (primary) hypertension (12) Oxygen dependent SNOMED Code(s): 827996655635 ICD Code: Z99.81 - DEPENDENCE ON SUPPLEMENTAL OXYGEN Status: Chronic Current Visit: No (13) CKD (chronic kidney disease) SNOMED Code(s): 626281571 ICD Code: N18.9 - CHRONIC KIDNEY DISEASE, UNSPECIFIED Status: Chronic Current Visit: Yes Problem List Initiated/Reviewed/Updated: Yes Orders Last 24hrs: Active Orders 24 hr Category Date Time Status Patient Status [ADT] Stat ADT 07/14/18 16:05 Active Communication Order [RC] PRN Care 07/14/18 16:24 Ordered Height and Weight [RC] DAILY Care 07/14/18 16:20 Ordered Oxygen Therapy [RC] PRN Care 07/14/18 16:20 Ordered Telemetry Monitoring [Cardiac Monitoring] [RC] . Care 07/14/18 16:25 Ordered DIRECTED Up With Assistance [RC] ASDIRECTED Care 07/14/18 16:20 Ordered VTE/DVT Education [RC] PER UNIT ROUTINE Care 07/14/18 16:20 Ordered Vital Signs [RC] Q4H Care 07/14/18 16:20 Ordered 2 Gram Sodium Diet [DIET] Diet 07/14/18 Dinner Ordered Chest 1V Frontal [CR] Urgent Exams 07/14/18 16:20 Ordered BASIC METABOLIC PANEL,BMP [CHEM] AM Lab 07/15/18 05:11 Ordered BASIC METABOLIC PANEL,BMP [CHEM] AM Lab 07/16/18 05:11 Ordered BASIC METABOLIC PANEL,BMP [CHEM] AM Lab 07/17/18 05:11 Ordered CBC WITH AUTO DIFF [HEME] AM Lab 07/15/18 05:11 Ordered CBC WITH AUTO DIFF [HEME] AM Lab 07/16/18 05:11 Ordered CBC WITH AUTO DIFF [HEME] AM Lab 07/17/18 05:11 Ordered RED BLOOD CELLS LP [BBK] Stat Lab 07/14/18 15:18 Received TYPE AND SCREEN [BBK] Stat Lab 07/14/18 15:18 Received Acetaminophen [Tylenol] Med 07/14/18 16:20 Ordered 650 mg PO Q4H PRN Furosemide [Lasix] Med 07/14/18 16:25 Once 80 mg IVPUSH NOW ONE Ondansetron [Zofran] Med 07/14/18 16:20 Ordered 4 mg IVPUSH Q4H PRN Pantoprazole [ProTONIX IV] Med 07/15/18 03:00 Ordered 40 mg IV Q12HR Sodium Chloride 0.9% [Saline Flush] Med 07/14/18 15:12 Active 10 ml FLUSH ASDIRECTED PRN Sodium Chloride 0.9% [Saline Flush] Med 07/14/18 15:12 Active 2.5 ml FLUSH ASDIRECTED PRN Saline Lock Insert [OM.PC] Stat Ot 07/14/18 14:42 Ordered Saline Lock Insert [OM.PC] Stat Ot 07/14/18 15:12 Ordered Transfuse PRBC [Transfuse Red Blood Cells] [COMM] Ot 07/14/18 16:20 Ordered Routine Resuscitation Status Routine Resus Stat 07/14/18 16:20 Ordered Medication Orders Acetaminophen (Tylenol) 650 mg PO Q4H PRN PRN Reason: Pain (mild 1-3) Furosemide (Lasix) 80 mg IVPUSH NOW ONE Stop: 07/14/18 16:26 Ondansetron HCl (Zofran) 4 mg IVPUSH Q4H PRN PRN Reason: Nausea Pantoprazole Sodium (Protonix Iv) 40 mg IV Q12HR BLANCA Sodium Chloride (Saline Flush) 10 ml FLUSH ASDIRECTED PRN PRN Reason: Keep Vein Open Sodium Chloride (Saline Flush) 2.5 ml FLUSH ASDIRECTED PRN PRN Reason: Keep Vein Open Assessment/Plan Comment:: THis 77 year old male admitted with worsening anemia, GI bleed and CHF exacerbation 1. Anemia/GI bleed: Recent NSTEMI, will transfuse 1 unit PRBC and recheck HH 1 hour post. Hold any anticoagulation. Protonix 40 mg IV BID and Carafate with meals. I did also speak with Dr Price, she reviewed chart and recommended, once stable she could potentially remove fluid from lap band, as gastric diverticulum was not on CT which could be from lap band and that may relieve some symptoms. Patient at this time, does not want heroic measures and declines colonoscopy. Palliative measures. 2. CHF exacerbation: Dr Quiroga was attempted diuresis at [facility], but has been unsuccessful with PO and would like to see if inpatient diuresis would be more successful. Give Lasix 80 mg IV tonight and monitor. ECHO on June 24 in [place] revealed EF 60%. Daily weights, strict I/O Low Na diet with 1.5 L FR. Monitor on telemetry. 3. LOUISE on CKD: Monitor closely with diuresis. Hold Losartan during LOUISE. 4. HTN: noted to be slightly hypotensive. Will hold all antihypertensives for now and monitor. 5. CAD: Stable, no chest pain. Continue Metoprolol. 6. COPD: Stable, CXR unremarkable. Oxygen dependent, continue this and Continue home inhaler. Monitor. 7. DM Type 2: Monitor BS with meals and SSI Novolog. Will cut long acting down during hospitalization and monitor. VTE prophylaxis: SCDs, no pharmacologic prophylaxis due to risk of bleeding. Dispo: 1-3 days pending improvement.
--- NOTE | 2018-07-14 17:28 | CR ---
INDICATION: anemia, dyspnea TECHNIQUE: Chest 1 view. COMPARISON: 06/23/17 FINDINGS: Cardiovascular and mediastinum: Heart size and vasculature are normal in caliber and appearance. Mediastinum is within normal limits. Lungs and pleural space: Lungs are clear. No sign of infiltrate or mass. No sign of pleural effusion. No pneumothorax. Bones and soft tissues: No significant findings. IMPRESSION: Unremarkable chest. Dictated by: Sesar Avendano MD @ 07/14/2018 17:26:13 (Electronically Signed)
[2018-07-14] MEDS ORDERED: traMADol 50 MG Tab PO PRN (17:43)
[2018-07-14] MEDS ORDERED: MICONAZOLE NITRATE TOP PRN (17:43)
[2018-07-14] MEDS ORDERED: Albuterol 0.083% 2.5 MG/3 ML Neb Soln NEB PRN (17:43)
[2018-07-14] MEDS: Insulin Aspart 100 Units/ML 3 ML Pen SUBCUT SCH (18:41)
[2018-07-14] MEDS ORDERED: Tamsulosin 0.4 MG Cap.ER PO SCH (21:00)
[2018-07-14] MEDS: Metoprolol Tartrate 25 MG Tab PO SCH (21:25)
[2018-07-14] MEDS: Acetaminophen 500 MG Tab PO SCH (21:25)
[2018-07-14] MEDS: Pantoprazole 40 MG in Sodium Chloride 0.9% 10 ML IV SCH (21:30)
[2018-07-14] MEDS: Sucralfate 1 GM Tab PO SCH (21:38)
[2018-07-14] MEDS: traZODone 50 MG Tab PO SCH (21:38)
[2018-07-14] MEDS: Nystatin Topical Powder 15 GM Bottle TOP SCH (21:43)
[2018-07-14] MEDS: BUDESONIDE INH SCH (21:44)
[2018-07-14] MEDS: Insulin Glargine,Human Rec. Analog 100 Units/ML 3 ML Pen SUBCUT SCH (21:44)
[2018-07-14] MEDS: FORMOTEROL INH SCH (21:44)
[2018-07-15] MEDS ORDERED: Pantoprazole 40 MG Vial IV SCH (03:00)
[2018-07-15] MEDS: Insulin Aspart 100 Units/ML 3 ML Pen SUBCUT SCH ×3 (06:37→17:09)
[2018-07-15] MEDS: Acetaminophen 500 MG Tab PO SCH ×3 (06:37→21:34)
[2018-07-15] MEDS: Sucralfate 1 GM Tab PO SCH ×4 (06:38→20:12)
[2018-07-15] MEDS: FORMOTEROL INH SCH ×2 (09:00→20:27)
[2018-07-15] MEDS: BUDESONIDE INH SCH ×2 (09:00→20:27)
[2018-07-15] MEDS ORDERED: Finasteride 5 MG Tab PO SCH (09:00)
[2018-07-15] MEDS: Folic Acid 1 MG Tab PO SCH (09:01)
[2018-07-15] MEDS: Pantoprazole 40 MG in Sodium Chloride 0.9% 10 ML IV SCH ×2 (09:02→20:13)
--- NOTE | 2018-07-15 09:06 | PCM.PN ---
- General Info Date of Service: 07/15/18 Admission Dx/Problem (Free Text): Admission Diagnosis/Problem Admission Diagnosis/Problem Anemia Subjective Update: Sitting in the chair, eating breakfast. Reports not feeling well overall, low energy and generalized malaise. No chest pain or SOB. No abdominal pain. No changes to leg swelling. Functional Status: Reports: Pain Controlled, Tolerating Diet, Ambulating, Urinating - Review of Systems General: Reports: Fatigue, Malaise HEENT: Denies: Headaches, Sore Throat Pulmonary: Denies: Shortness of Breath, Cough, Sputum Cardiovascular: Reports: Dyspnea on Exertion, Edema. Denies: Chest Pain, Orthopnea Gastrointestinal: Denies: Abdominal Pain, Nausea, Vomiting Genitourinary: Reports: No Symptoms. Denies: Dysuria, Frequency, Burning Musculoskeletal: Reports: No Symptoms Skin: Reports: No Symptoms Neurological: Reports: No Symptoms Psychiatric: Reports: No Symptoms - Patient Data Vitals - Most Recent: Last Vital Signs Temp 97.4 F 07/15/18 04:20 Pulse 75 07/15/18 04:20 Resp 18 07/15/18 04:20 BP 111/71 07/15/18 04:20 Pulse Ox 95 07/15/18 04:20 Weight - Most Recent: 134.672 kg I&O - Last 24 Hours: Intake & Output 07/14/18 07/15/18 07/15/18 22:59 06:59 14:59 Intake Total 357 789 Output Total 0 1730 Balance 357 -941 Lab Results Last 24 Hours: Laboratory Results - last 24 hr 07/14/18 07/14/18 07/14/18 Range/Units 15:18 15:26 18:39 WBC (4.0-11.0) K/uL RBC (4.50-5.90) M/uL Hgb (13.0-17.0) g/dL Hct (38.0-50.0) % MCV (80.0-98.0) fL MCH (27.0-32.0) pg MCHC (31.0-37.0) g/dL RDW Std Deviation (28.0-62.0) fl RDW Coeff of [place] (11.0-15.0) % Plt Count (150-400) K/uL MPV (7.40-12.00) fL Add Manual Diff Neutrophils % (Manual) (48.0-80.0) % Band Neutrophils % % Lymphocytes % (Manual) (16.0-40.0) % Monocytes % (Manual) (0.0-15.0) % Eosinophils % (Manual) (0.0-7.0) % Nucleated RBC % /100WBC Absolute Seg Neuts (1.4-5.7) Band Neutrophils # Lymphocytes # (Manual) (0.6-2.4) Monocytes # (Manual) (0.0-0.8) Eosinophils # (Manual) (0.0-0.7) Nucleated RBCs # K/uL INR 1.06 APTT 25.4 (18.6-31.3) SEC Sodium (136-148) mmol/L Potassium (3.5-5.1) mmol/L Chloride (98-107) mmol/L Carbon Dioxide (21.0-32.0) mmol/L BUN (7.0-18.0) mg/dL Creatinine (0.8-1.3) mg/dL Est Cr Clr Drug Dosing mL/min Estimated GFR (MDRD) ml/min Glucose (74-106) mg/dL POC Glucose 106 (60-110) mg/dL Calcium (8.5-10.1) mg/dL Blood Type O POSITIVE Antibody Screen NEGATIVE Crossmatch See Detail 07/14/18 07/14/18 07/15/18 Range/Units 21:28 22:45 05:34 WBC 8.67 (4.0-11.0) K/uL RBC 3.00 L (4.50-5.90) M/uL Hgb 7.8 L 8.7 L (13.0-17.0) g/dL Hct 25.6 L 28.6 L (38.0-50.0) % MCV 95.3 (80.0-98.0) fL MCH 29.0 (27.0-32.0) pg MCHC 30.4 L (31.0-37.0) g/dL RDW Std Deviation 62.3 H (28.0-62.0) fl RDW Coeff of [place] 18 H (11.0-15.0) % Plt Count 260 (150-400) K/uL MPV 9.30 (7.40-12.00) fL Add Manual Diff YES Neutrophils % (Manual) 73 (48.0-80.0) % Band Neutrophils % 4 % Lymphocytes % (Manual) 12 L (16.0-40.0) % Monocytes % (Manual) 4 (0.0-15.0) % Eosinophils % (Manual) 7 (0.0-7.0) % Nucleated RBC % 0.0 /100WBC Absolute Seg Neuts 6.3 H (1.4-5.7) Band Neutrophils # 0.3 Lymphocytes # (Manual) 1.0 (0.6-2.4) Monocytes # (Manual) 0.3 (0.0-0.8) Eosinophils # (Manual) 0.6 (0.0-0.7) Nucleated RBCs # 0 K/uL INR APTT (18.6-31.3) SEC Sodium (136-148) mmol/L Potassium (3.5-5.1) mmol/L Chloride (98-107) mmol/L Carbon Dioxide (21.0-32.0) mmol/L BUN (7.0-18.0) mg/dL Creatinine (0.8-1.3) mg/dL Est Cr Clr Drug Dosing mL/min Estimated GFR (MDRD) ml/min Glucose (74-106) mg/dL POC Glucose 187 H (60-110) mg/dL Calcium (8.5-10.1) mg/dL Blood Type Antibody Screen Crossmatch 07/15/18 07/15/18 Range/Units 05:34 06:35 WBC (4.0-11.0) K/uL RBC (4.50-5.90) M/uL Hgb (13.0-17.0) g/dL Hct (38.0-50.0) % MCV (80.0-98.0) fL MCH (27.0-32.0) pg MCHC (31.0-37.0) g/dL RDW Std Deviation (28.0-62.0) fl RDW Coeff of [place] (11.0-15.0) % Plt Count (150-400) K/uL MPV (7.40-12.00) fL Add Manual Diff Neutrophils % (Manual) (48.0-80.0) % Band Neutrophils % % Lymphocytes % (Manual) (16.0-40.0) % Monocytes % (Manual) (0.0-15.0) % Eosinophils % (Manual) (0.0-7.0) % Nucleated RBC % /100WBC Absolute Seg Neuts (1.4-5.7) Band Neutrophils # Lymphocytes # (Manual) (0.6-2.4) Monocytes # (Manual) (0.0-0.8) Eosinophils # (Manual) (0.0-0.7) Nucleated RBCs # K/uL INR APTT (18.6-31.3) SEC Sodium 142 (136-148) mmol/L Potassium 4.8 (3.5-5.1) mmol/L Chloride 101 (98-107) mmol/L Carbon Dioxide 34.1 H (21.0-32.0) mmol/L BUN 102 H (7.0-18.0) mg/dL Creatinine 3.2 H (0.8-1.3) mg/dL Est Cr Clr Drug Dosing 19.03 mL/min Estimated GFR (MDRD) 18.9 ml/min Glucose 116 H (74-106) mg/dL POC Glucose 105 (60-110) mg/dL Calcium 9.0 (8.5-10.1) mg/dL Blood Type Antibody Screen Crossmatch Med Orders - Current: Current Medications Acetaminophen (Tylenol Extra Strength) 1,000 mg PO TID REPLACED BY [facility] Last Admin: 07/15/18 06:37 Dose: 1,000 mg Albuterol (Proventil Neb Soln) 2.5 mg NEB Q4H PRN PRN Reason: Shortness of Breath Folic Acid (Folic Acid) 1 mg PO DAILY REPLACED BY [facility] Pantoprazole Sodium 40 mg/ (Sodium Chloride) 10 mls @ 200 mls/hr IV Q12HR REPLACED BY [facility] Last Admin: 07/14/18 21:30 Dose: 200 mls/hr Insulin Aspart (Novolog) 0 unit SUBCUT TIDAC REPLACED BY [facility]; Protocol Last Admin: 07/15/18 06:37 Dose: Not Given Insulin Glargine (Lantus Solostar) 30 units SUBCUT BEDTIME REPLACED BY [facility] Last Admin: 07/14/18 21:44 Dose: 30 units Metoprolol Tartrate (Lopressor) 25 mg PO BID REPLACED BY [facility] Last Admin: 07/14/18 21:25 Dose: 25 mg Nystatin (Nystop) 1 gm TOP BID REPLACED BY [facility] Last Admin: 07/14/18 21:43 Dose: 1 applic Ondansetron HCl (Zofran) 4 mg IVPUSH Q4H PRN PRN Reason: Nausea Budesonide/Formoterol 160-4.5 Mcg/Puff [Symbicort] 2 each INH Q12HR REPLACED BY [facility] Last Admin: 07/14/18 21:44 Dose: Not Given Miconazole Nitrate 1 (Applic) 1 each TOP Q12H PRN PRN Reason: ITCHY SKIN FOLDS Sodium Chloride (Saline Flush) 10 ml FLUSH ASDIRECTED PRN PRN Reason: Keep Vein Open Sodium Chloride (Saline Flush) 2.5 ml FLUSH ASDIRECTED PRN PRN Reason: Keep Vein Open Sucralfate (Carafate) 1 gm PO QIDACANDBED REPLACED BY [facility] Last Admin: 07/15/18 06:38 Dose: 1 gm Tramadol HCl (Ultram) 50 mg PO TID PRN PRN Reason: KNEE PAIN Trazodone HCl (Trazodone) 50 mg PO BEDTIME REPLACED BY [facility] Last Admin: 07/14/18 21:38 Dose: 50 mg Discontinued Medications Acetaminophen (Tylenol) 650 mg PO Q4H PRN PRN Reason: Pain (mild 1-3) Finasteride (Proscar) 5 mg PO DAILY REPLACED BY [facility] Furosemide (Lasix) 80 mg IVPUSH NOW ONE Stop: 07/14/18 16:26 Last Admin: 07/14/18 17:37 Dose: 80 mg Pantoprazole Sodium (Protonix Iv) 80 mg IVPUSH .BOLUS ONE Stop: 07/14/18 15:24 Last Admin: 07/14/18 15:53 Dose: 80 mg Sodium Chloride (Saline Flush) 10 ml FLUSH ASDIRECTED PRN PRN Reason: Keep Vein Open Sodium Chloride (Saline Flush) 2.5 ml FLUSH ASDIRECTED PRN PRN Reason: Keep Vein Open Tamsulosin HCl (Flomax) 0.4 mg PO BEDTIME REPLACED BY [facility] - Exam Quality Assessment: Supplemental Oxygen General: Alert, Oriented, Cooperative, Other (Not very conversational and not his usual perky self. Pallor noted.) Neck: Supple Lungs: Normal Respiratory Effort, Decreased Breath Sounds (bibasilar) Cardiovascular: Regular Rate, Regular Rhythm, No Murmurs GI/Abdominal Exam: Normal Bowel Sounds, Soft, Tender (mild tenderness with palpation), Other (obese abdomen) Extremities: Normal Range of Motion, Pedal Edema (+3-4 pitting edema with shiny appearing baron skin. scant bullae still noted to shins. Tenderness to palpation of edematous feet) Neurological: No New Focal Deficit Psy/Mental Status: Alert, Normal Affect, Normal Mood - Problem List & Annotations (1) Anemia SNOMED Code(s): 981984969 Code(s): D64.9 - ANEMIA, UNSPECIFIED Status: Acute Current Visit: Yes Qualifiers: Anemia type: iron deficiency Iron deficiency anemia type: chronic blood loss Qualified Code(s): D50.0 - Iron deficiency anemia secondary to blood loss (chronic) (2) Lower GI bleed SNOMED Code(s): 94536899 Code(s): K92.2 - GASTROINTESTINAL HEMORRHAGE, UNSPECIFIED Status: Acute Current Visit: Yes (3) CHF exacerbation SNOMED Code(s): 027490425 Code(s): I50.9 - HEART FAILURE, UNSPECIFIED Status: Suspected Current Visit: No Qualifiers: Heart failure type: diastolic Qualified Code(s): I50.33 - Acute on chronic diastolic (congestive) heart failure (4) LOUISE (acute kidney injury) SNOMED Code(s): 35629445, 11309730 Code(s): N17.9 - ACUTE KIDNEY FAILURE, UNSPECIFIED Status: Acute Current Visit: No (5) Generalized weakness SNOMED Code(s): 85454883 Code(s): R53.1 - WEAKNESS Status: Acute Current Visit: No (6) Morbid obesity with BMI of 50.0-59.9, adult SNOMED Code(s): 887490334, 24969104590429 Code(s): E66.01 - MORBID (SEVERE) OBESITY DUE TO EXCESS CALORIES; Z68.43 - BODY MASS INDEX (BMI) 50-59.9, ADULT Status: Acute Current Visit: No (7) A-fib SNOMED Code(s): 60178348 Code(s): I48.91 - UNSPECIFIED ATRIAL FIBRILLATION Status: Chronic Current Visit: No Qualifiers: Atrial fibrillation type: paroxysmal Qualified Code(s): I48.0 - Paroxysmal atrial fibrillation (8) CHF (congestive heart failure) SNOMED Code(s): 30536503 Code(s): I50.9 - HEART FAILURE, UNSPECIFIED Status: Chronic Current Visit : No (9) COPD (chronic obstructive pulmonary disease) SNOMED Code(s): 31057821 Code(s): J44.9 - CHRONIC OBSTRUCTIVE PULMONARY DISEASE, UNSPECIFIED Status : Chronic Current Visit: No (10) DM type 2 (diabetes mellitus, type 2) SNOMED Code(s): 83697458 Code(s): E11.9 - TYPE 2 DIABETES MELLITUS WITHOUT COMPLICATIONS Status: Chronic Current Visit: No Qualifiers: Diabetes mellitus care home insulin use: without care home use Diabetes mellitus complication status: without complication Qualified Code(s): E11.9 - Type 2 diabetes mellitus without complications (11) HTN (hypertension) SNOMED Code(s): 40644516 Code(s): I10 - ESSENTIAL (PRIMARY) HYPERTENSION Status: Chronic Current Visit: No Qualifiers: Hypertension type: essential hypertension Qualified Code(s): I10 - Essential (primary) hypertension (12) Oxygen dependent SNOMED Code(s): 738667706942 Code(s): Z99.81 - DEPENDENCE ON SUPPLEMENTAL OXYGEN Status: Chronic Current Visit: No (13) CKD (chronic kidney disease) SNOMED Code(s): 547310248 Code(s): N18.9 - CHRONIC KIDNEY DISEASE, UNSPECIFIED Status: Chronic Current Visit: Yes - Problem List Review Problem List Initiated/Reviewed/Updated: Yes - My Orders Last 24 Hours: My Active Orders 07/14/18 16:20 Height and Weight [RC] DAILY Oxygen Therapy [RC] PRN Up With Assistance [RC] ASDIRECTED VTE/DVT Education [RC] PER UNIT ROUTINE Vital Signs [RC] Q4H Ondansetron [Zofran] 4 mg IVPUSH Q4H PRN Transfuse PRBC [Transfuse Red Blood Cells] [COMM] Routine Resuscitation Status Routine 07/14/18 16:24 Communication Order [RC] PRN 07/14/18 16:25 Telemetry Monitoring [Cardiac Monitoring] [RC] . DIRECTED 07/14/18 16:27 Intake and Output Strict [RC] Q12H 07/14/18 17:43 Blood Glucose Check, Bedside [RC] TIDAC Albuterol [Proventil Neb Soln] 2.5 mg NEB Q4H PRN Insulin Aspart [NovoLOG] See Protocol SUBCUT TIDAC Patient's Own Medication [Ptom] 1 each TOP Q12H PRN traMADol [Ultram] 50 mg PO TID PRN 07/14/18 21:00 Insulin Glarg,Human.Rec.Analog [LantUS Solostar] 30 units SUBCUT BEDTIME Metoprolol Tartrate [Lopressor] 25 mg PO BID Nystatin [Nystop] 1 gm TOP BID Pantoprazole [ProTONIX IV] 40 mg Sodium Chloride 0.9% [Normal Saline] 10 ml IV Q12HR Patient's Own Medication [Ptom] 2 each INH Q12HR Sucralfate [Carafate] 1 gm PO QIDACANDBED traZODone 50 mg PO BEDTIME 07/14/18 22:00 Acetaminophen [Tylenol Extra Strength] 1,000 mg PO TID 07/14/18 Dinner 2 Gram Sodium Diet [DIET] 07/15/18 09:00 Folic Acid 1 mg PO DAILY 07/16/18 05:11 BASIC METABOLIC PANEL,BMP [CHEM] AM CBC WITH AUTO DIFF [HEME] AM 07/17/18 05:11 BASIC METABOLIC PANEL,BMP [CHEM] AM CBC WITH AUTO DIFF [HEME] AM - Plan Plan:: THis 77 year old male admitted with worsening anemia, GI bleed and CHF exacerbation 1. Anemia/GI bleed: Given 2 units PRBCs overnight, hgb 8.7 this morning. Hold any anticoagulation. Protonix 40 mg IV BID and Carafate with meals. 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 Patient at this time, does not want heroic measures and declines colonoscopy. Palliative measures. 2. CHF exacerbation: No change in edema. Continue Lasix 80 mg IV BID and monitor I/O. No dyspnea or orthopnea noted. ECHO on June 24 in [place] revealed EF 60%. Daily weights, strict I/O Low Na diet with 1.5 L FR. Monitor on telemetry. Weight down 1 kg, negative 1 L overnight. 3. LOUISE on CKD: Monitor closely with diuresis. BUN 102 and Cr 3.2 today, slightly elevated from yesterday, 90 and 2.8. Hold Losartan during LOUISE. 4. HTN: BPs stable. Continue to Will hold all antihypertensives for now and monitor with diuresis 5. CAD/Afib: Stable, no chest pain. Continue Metoprolol. 6. COPD: Stable, Oxygen dependent, continue this and Continue home inhaler. Monitor. 7. DM Type 2: Monitor BS with meals and SSI Novolog. Lantus 30 units at bedtime VTE prophylaxis: SCDs, no pharmacologic prophylaxis due to risk of bleeding. Dispo: 1-3 days pending improvement.
[2018-07-15] MEDS: Nystatin Topical Powder 15 GM Bottle TOP SCH ×2 (09:15→20:29)
[2018-07-15] MEDS: Metoprolol Tartrate 25 MG Tab PO SCH ×2 (09:45→20:12)
[2018-07-15] MEDS ORDERED: Furosemide 40 MG/4 ML VIAL IVPUSH ONE (10:00)
[2018-07-15] MEDS: Furosemide 40 MG/4 ML VIAL IVPUSH SCH (14:42)
--- NOTE | 2018-07-15 18:44 | OR ---
SURGEON: NELI PRICE MD DATE OF PROCEDURE: 07/14/2018 PREOPERATIVE DIAGNOSIS: Gastrointestinal bleed. POSTOPERATIVE DIAGNOSIS: Gastrointestinal bleed. PROCEDURE PERFORMED: Removal of gastric band fluid. PRIMARY SURGEON: Neli Price MD. FLUID REMOVED: 5 mL. COMPLICATIONS: None. INDICATIONS: The patient is a 77-year-old male, who presents to the hospital with a GI bleed. He has a gastric band in place. I was asked to see the patient about removing the fluid from his band. He is DNR/DNI and does not want an endoscopic workup, but is interested in having the fluid removed from the gastric band to see if this helps. The patient's sister and I discussed the procedure as well as the expected course. I explained the risk of bleeding or infection. The patient verbalized understanding and wishes to proceed. PROCEDURE IN DETAIL: The patient was met in his hospital room. He was placed supine on the hospital bed. A time-out was completed verifying his name, age, date of , allergies, and procedure to be performed. I sterilely prepped and draped over the patient's right upper quadrant where I could palpate his port. Using a Ferrell needle, I accessed the port and pulled back using a 10 mL Luer Lock syringe. 5 mL of clear appearing fluids were aspirated. The needle was then removed and the procedure terminated. A sterile dressing was placed over the insertion site of the needle. The patient tolerated the procedure well with no immediate complications. KELLEY GUERRERO /[id number]
[2018-07-15] MEDS: traZODone 50 MG Tab PO SCH (20:12)
[2018-07-15] MEDS: Insulin Glargine,Human Rec. Analog 100 Units/ML 3 ML Pen SUBCUT SCH (20:24)
[2018-07-16] MEDS: Acetaminophen 500 MG Tab PO SCH ×3 (05:39→21:16)
[2018-07-16] MEDS: Sucralfate 1 GM Tab PO SCH ×4 (07:00→21:18)
[2018-07-16] MEDS: Insulin Aspart 100 Units/ML 3 ML Pen SUBCUT SCH ×3 (07:04→17:19)
[2018-07-16] MEDS: Folic Acid 1 MG Tab PO SCH (08:10)
[2018-07-16] MEDS: Metoprolol Tartrate 25 MG Tab PO SCH ×2 (08:10→21:18)
[2018-07-16] MEDS: Furosemide 40 MG/4 ML VIAL IVPUSH SCH ×2 (08:16→14:38)
[2018-07-16] MEDS: Pantoprazole 40 MG in Sodium Chloride 0.9% 10 ML IV SCH ×2 (08:22→21:16)
[2018-07-16] MEDS: Nystatin Topical Powder 15 GM Bottle TOP SCH ×2 (08:36→21:13)
[2018-07-16] MEDS: BUDESONIDE INH SCH ×2 (08:39→21:19)
[2018-07-16] MEDS: FORMOTEROL INH SCH ×2 (08:39→21:19)
--- NOTE | 2018-07-16 09:15 | PCM.PN ---
- General Info Date of Service: 07/16/18 Admission Dx/Problem (Free Text): Admission Diagnosis/Problem Admission Diagnosis/Problem Anemia Subjective Update: The patient is a chronically ill 77-year-old gentleman who had been admitted on July 14, 2018 secondary to anemia. The patient does have a history of significant GI bleed with an N STEMI 2 weeks ago and the patient had been in alf. The patient has been having continued edema. The patient today says that he still feels very weak. He has had some shortness of breath. He also says that he is been having worsening edema of his lower extremities. Functional Status: Reports: Pain Controlled - Review of Systems General: Reports: No Symptoms HEENT: Reports: No Symptoms Pulmonary: Reports: No Symptoms Cardiovascular: Reports: No Symptoms Gastrointestinal: Reports: No Symptoms Genitourinary: Reports: No Symptoms Musculoskeletal: Reports: No Symptoms Skin: Reports: No Symptoms Neurological: Reports: No Symptoms Psychiatric: Reports: No Symptoms Systems Review Comment:: Poor historian - Patient Data Vitals - Most Recent: Last Vital Signs Temp 36.5 C 07/16/18 07:33 Pulse 66 07/16/18 08:10 Resp 18 07/16/18 07:33 BP 116/73 07/16/18 08:10 Pulse Ox 93 L 07/16/18 07:33 Weight - Most Recent: 130.771 kg I&O - Last 24 Hours: Intake & Output 07/15/18 07/16/18 07/16/18 22:59 06:59 14:59 Intake Total 740 750 Output Total 1850 2350 Balance -1110 -1600 Lab Results Last 24 Hours: Laboratory Results - last 24 hr 07/15/18 07/15/18 07/15/18 Range/Units 11:56 15:40 16:33 WBC (4.0-11.0) K/uL RBC (4.50-5.90) M/uL Hgb 9.1 L (13.0-17.0) g/dL Hct 29.0 L (38.0-50.0) % MCV (80.0-98.0) fL MCH (27.0-32.0) pg MCHC (31.0-37.0) g/dL RDW Std Deviation (28.0-62.0) fl RDW Coeff of [place] (11.0-15.0) % Plt Count (150-400) K/uL MPV (7.40-12.00) fL Add Manual Diff Neutrophils % (Manual) (48.0-80.0) % Band Neutrophils % % Lymphocytes % (Manual) (16.0-40.0) % Monocytes % (Manual) (0.0-15.0) % Eosinophils % (Manual) (0.0-7.0) % Myelocytes % % Nucleated RBC % /100WBC Absolute Seg Neuts (1.4-5.7) Band Neutrophils # Lymphocytes # (Manual) (0.6-2.4) Monocytes # (Manual) (0.0-0.8) Eosinophils # (Manual) (0.0-0.7) Absolute Myelocytes Nucleated RBCs # K/uL Sodium (136-148) mmol/L Potassium (3.5-5.1) mmol/L Chloride (98-107) mmol/L Carbon Dioxide (21.0-32.0) mmol/L BUN (7.0-18.0) mg/dL Creatinine (0.8-1.3) mg/dL Est Cr Clr Drug Dosing mL/min Estimated GFR (MDRD) ml/min Glucose (74-106) mg/dL POC Glucose 121 H 202 H (60-110) mg/dL Calcium (8.5-10.1) mg/dL 07/15/18 07/16/18 07/16/18 Range/Units 20:22 05:00 05:00 WBC 9.81 (4.0-11.0) K/uL RBC 3.25 L (4.50-5.90) M/uL Hgb 9.5 L (13.0-17.0) g/dL Hct 30.8 L (38.0-50.0) % MCV 94.8 (80.0-98.0) fL MCH 29.2 (27.0-32.0) pg MCHC 30.8 L (31.0-37.0) g/dL RDW Std Deviation 60.3 (28.0-62.0) fl RDW Coeff of [place] 18 H (11.0-15.0) % Plt Count 309 (150-400) K/uL MPV 9.50 (7.40-12.00) fL Add Manual Diff YES Neutrophils % (Manual) 65 (48.0-80.0) % Band Neutrophils % 4 % Lymphocytes % (Manual) 15 L (16.0-40.0) % Monocytes % (Manual) 6 (0.0-15.0) % Eosinophils % (Manual) 9 H (0.0-7.0) % Myelocytes % 1 % Nucleated RBC % 0.0 /100WBC Absolute Seg Neuts 6.4 H (1.4-5.7) Band Neutrophils # 0.4 Lymphocytes # (Manual) 1.5 (0.6-2.4) Monocytes # (Manual) 0.6 (0.0-0.8) Eosinophils # (Manual) 0.9 H (0.0-0.7) Absolute Myelocytes 0.1 Nucleated RBCs # 0 K/uL Sodium 142 (136-148) mmol/L Potassium 4.5 (3.5-5.1) mmol/L Chloride 99 (98-107) mmol/L Carbon Dioxide 38.7 H (21.0-32.0) mmol/L BUN 99 H (7.0-18.0) mg/dL Creatinine 3.0 H (0.8-1.3) mg/dL Est Cr Clr Drug Dosing 20.29 mL/min Estimated GFR (MDRD) 20.3 ml/min Glucose 96 (74-106) mg/dL POC Glucose 176 H (60-110) mg/dL Calcium 9.2 (8.5-10.1) mg/dL 07/16/18 Range/Units 05:42 WBC (4.0-11.0) K/uL RBC (4.50-5.90) M/uL Hgb (13.0-17.0) g/dL Hct (38.0-50.0) % MCV (80.0-98.0) fL MCH (27.0-32.0) pg MCHC (31.0-37.0) g/dL RDW Std Deviation (28.0-62.0) fl RDW Coeff of [place] (11.0-15.0) % Plt Count (150-400) K/uL MPV (7.40-12.00) fL Add Manual Diff Neutrophils % (Manual) (48.0-80.0) % Band Neutrophils % % Lymphocytes % (Manual) (16.0-40.0) % Monocytes % (Manual) (0.0-15.0) % Eosinophils % (Manual) (0.0-7.0) % Myelocytes % % Nucleated RBC % /100WBC Absolute Seg Neuts (1.4-5.7) Band Neutrophils # Lymphocytes # (Manual) (0.6-2.4) Monocytes # (Manual) (0.0-0.8) Eosinophils # (Manual) (0.0-0.7) Absolute Myelocytes Nucleated RBCs # K/uL Sodium (136-148) mmol/L Potassium (3.5-5.1) mmol/L Chloride (98-107) mmol/L Carbon Dioxide (21.0-32.0) mmol/L BUN (7.0-18.0) mg/dL Creatinine (0.8-1.3) mg/dL Est Cr Clr Drug Dosing mL/min Estimated GFR (MDRD) ml/min Glucose (74-106) mg/dL POC Glucose 103 (60-110) mg/dL Calcium (8.5-10.1) mg/dL Med Orders - Current: Current Medications Acetaminophen (Tylenol Extra Strength) 1,000 mg PO TID COUNT INCLUDES THE [facility] Last Admin: 07/16/18 05:39 Dose: 1,000 mg Albuterol (Proventil Neb Soln) 2.5 mg NEB Q4H PRN PRN Reason: Shortness of Breath Folic Acid (Folic Acid) 1 mg PO DAILY COUNT INCLUDES THE [facility] Last Admin: 07/16/18 08:10 Dose: 1 mg Furosemide (Lasix) 80 mg IVPUSH BIDDIURETIC COUNT INCLUDES THE [facility] Last Admin: 07/16/18 08:16 Dose: 80 mg Pantoprazole Sodium 40 mg/ (Sodium Chloride) 10 mls @ 200 mls/hr IV Q12HR COUNT INCLUDES THE [facility] Last Admin: 07/16/18 08:22 Dose: 200 mls/hr Insulin Aspart (Novolog) 0 unit SUBCUT TIDAC COUNT INCLUDES THE [facility]; Protocol Last Admin: 07/16/18 07:04 Dose: Not Given Insulin Glargine (Lantus Solostar) 30 units SUBCUT BEDTIME COUNT INCLUDES THE [facility] Last Admin: 07/15/18 20:24 Dose: 30 units Metoprolol Tartrate (Lopressor) 25 mg PO BID COUNT INCLUDES THE [facility] Last Admin: 07/16/18 08:10 Dose: 25 mg Nystatin (Nystop) 1 gm TOP BID COUNT INCLUDES THE [facility] Last Admin: 07/16/18 08:36 Dose: 1 applic Ondansetron HCl (Zofran) 4 mg IVPUSH Q4H PRN PRN Reason: Nausea Budesonide/Formoterol 160-4.5 Mcg/Puff [Symbicort] 2 each INH Q12HR COUNT INCLUDES THE [facility] Last Admin: 07/16/18 08:39 Dose: Not Given Miconazole Nitrate 1 (Applic) 1 each TOP Q12H PRN PRN Reason: ITCHY SKIN FOLDS Sodium Chloride (Saline Flush) 10 ml FLUSH ASDIRECTED PRN PRN Reason: Keep Vein Open Sodium Chloride (Saline Flush) 2.5 ml FLUSH ASDIRECTED PRN PRN Reason: Keep Vein Open Sucralfate (Carafate) 1 gm PO QIDACANDBED COUNT INCLUDES THE [facility] Last Admin: 07/16/18 07:00 Dose: 1 gm Tramadol HCl (Ultram) 50 mg PO TID PRN PRN Reason: KNEE PAIN Trazodone HCl (Trazodone) 50 mg PO BEDTIME COUNT INCLUDES THE [facility] Last Admin: 07/15/18 20:12 Dose: 50 mg Discontinued Medications Acetaminophen (Tylenol) 650 mg PO Q4H PRN PRN Reason: Pain (mild 1-3) Finasteride (Proscar) 5 mg PO DAILY COUNT INCLUDES THE [facility] Furosemide (Lasix) 80 mg IVPUSH NOW ONE Stop: 07/14/18 16:26 Last Admin: 07/14/18 17:37 Dose: 80 mg Furosemide (Lasix) 80 mg IVPUSH NOW ONE Stop: 07/15/18 10:01 Last Admin: 07/15/18 10:28 Dose: 80 mg Pantoprazole Sodium (Protonix Iv) 80 mg IVPUSH .BOLUS ONE Stop: 07/14/18 15:24 Last Admin: 07/14/18 15:53 Dose: 80 mg Sodium Chloride (Saline Flush) 10 ml FLUSH ASDIRECTED PRN PRN Reason: Keep Vein Open Sodium Chloride (Saline Flush) 2.5 ml FLUSH ASDIRECTED PRN PRN Reason: Keep Vein Open Tamsulosin HCl (Flomax) 0.4 mg PO BEDTIME [place] - Exam Quality Assessment: Supplemental Oxygen General: Alert (Obese male), Oriented, Cooperative, No Acute Distress HEENT: Pupils Equal, Pupils Reactive, EOMI, Mucous Membr. Moist/[place] Neck: Supple, Trachea Midline Lungs: Clear to Auscultation, Normal Respiratory Effort Cardiovascular: Regular Rate, No Murmurs, Irregular Rhythm GI/Abdominal Exam: Normal Bowel Sounds, Soft, Non-Tender, No Distention, Other ( Morbidly obese) Back Exam: Normal Inspection (Age appropriate) Extremities: Normal Inspection, Pedal Edema Skin: Warm, Dry, Intact Neurological: No New Focal Deficit Psy/Mental Status: Alert, Normal Affect, Normal Mood - Problem List & Annotations (1) CHF exacerbation SNOMED Code(s): 305227462 Code(s): I50.9 - HEART FAILURE, UNSPECIFIED Status: Suspected Priority: High Current Visit: Yes Qualifiers: Heart failure type: diastolic Qualified Code(s): I50.33 - Acute on chronic diastolic (congestive) heart failure (2) HTN (hypertension) SNOMED Code(s): 25603320 Code(s): I10 - ESSENTIAL (PRIMARY) HYPERTENSION Status: Chronic Priority : High Current Visit: Yes Qualifiers: Hypertension type: essential hypertension Qualified Code(s): I10 - Essential (primary) hypertension (3) COPD (chronic obstructive pulmonary disease) SNOMED Code(s): 65418206 Code(s): J44.9 - CHRONIC OBSTRUCTIVE PULMONARY DISEASE, UNSPECIFIED Status : Chronic Priority: High Current Visit: Yes Qualifiers: COPD type: COPD with acute lower respiratory infection Qualified Code(s): J44.0 - Chronic obstructive pulmonary disease with acute lower respiratory infection (4) CKD (chronic kidney disease) SNOMED Code(s): 440229375 Code(s): N18.9 - CHRONIC KIDNEY DISEASE, UNSPECIFIED Status: Chronic Priority: High Current Visit: Yes Qualifiers: Chronic kidney disease stage: stage 3 (moderate) Qualified Code(s): N18.3 - Chronic kidney disease, stage 3 (moderate) - Problem List Review Problem List Initiated/Reviewed/Updated: Yes - Plan Plan:: The patient is a 77-year-old gentleman who had been admitted worsening anemia, GI bleed and CHF exacerbation. The patient still has pedal edema as well as some shortness of breath. He will be kept in hospitalization for today. I've also ordered repeat laboratory studies with regards to the patient's chronic kidney disease and his creatinine today and yesterday were at 3.2 and 3.0 respectively. This is likely the patient's new baseline. Also because of the patient's diabetes he will be kept on sliding scale insulin as well as appropriate diabetic diet. The patient will be continued on telemetry. He'll also be continued on vital sign monitoring and his hypertension will have medication adjusted as needed. His COPD is otherwise been stable but we'll continue on oxygen to help keep his saturations around 90-92%. The patient will also be kept on daily weights and strict ABI low-sodium diet. The patient will be reevaluated for possible discharge tomorrow. The patient is currently in a DO NOT INTUBATE/DO NOT RESUSCITATE category.
[2018-07-16] MEDS: Insulin Glargine,Human Rec. Analog 100 Units/ML 3 ML Pen SUBCUT SCH (21:15)
[2018-07-16] MEDS: traZODone 50 MG Tab PO SCH (21:16)
[2018-07-17] MEDS: Sucralfate 1 GM Tab PO SCH (06:31)
[2018-07-17] MEDS: Acetaminophen 500 MG Tab PO SCH (06:31)
[2018-07-17] MEDS: Insulin Aspart 100 Units/ML 3 ML Pen SUBCUT SCH ×2 (08:40→11:45)
[2018-07-17] MEDS: Folic Acid 1 MG Tab PO SCH (09:01)
[2018-07-17] MEDS: Pantoprazole 40 MG in Sodium Chloride 0.9% 10 ML IV SCH (09:02)
[2018-07-17] MEDS: Metoprolol Tartrate 25 MG Tab PO SCH (09:10)
[2018-07-17 09:11] VITALS: BP 93/60
[2018-07-17] MEDS: Nystatin Topical Powder 15 GM Bottle TOP SCH (09:11)
[2018-07-17] MEDS: Furosemide 40 MG/4 ML VIAL IVPUSH SCH (09:11)
[2018-07-17] MEDS: FORMOTEROL INH SCH (09:13)
[2018-07-17] MEDS: BUDESONIDE INH SCH (09:13)
--- NOTE | 2018-07-17 11:11 | PCM.DCSUM1 ---
<Jonah Stevenson - Last Filed: 07/17/18 11:06> Discharge Summary - Hospital Course Free Text/Narrative:: Admission date: 07/14/2018 Discharge date: 07/17/2018 Admission diagnosis: #1. Anemia #2. GI Bleed #3. CHF exacerbation #4. LOUISE on CKD #5. CAD #6. HTN #7. COPD #8. T2DM Discharge diagnosis: #1. Anemia - stable #2. Assumed GI Bleed #3. CHF exacerbation - improved #4. LOUISE on CKD #5. CAD #6. HTN #7. COPD #8. T2DM Consulting physicians: Dr. Price, general surgery Hospital course: 77M from [facility] presented to the ER with worsening peripheral edema despite PO diuretics. He was admitted for CHF exacerbation and noted to also be significantly anemic; requring 2 units PRBC. He was placed on fluid restriction and was IV diuresed. Dr. Price was consulted for gastric band fluid removal. Patient was back to baseline at the time of discharge. I recommend repeat H/H within 1-2 weeks and fluid restriction until re-evaluated at the assisted. - Discharge Data Discharge Date: 07/17/18 Discharge Disposition: DC/Tfer to [facility] 03 Condition: Serious - Patient Instructions Diet: Fluid Restriction Activity: As Tolerated Notify Provider of: Fever, Increased Pain, Swelling and Redness - Discharge Plan *PRESCRIPTION DRUG MONITORING PROGRAM REVIEWED*: No *COPY OF PRESCRIPTION DRUG MONITORING REPORT IN PATIENT XAVIER: No Home Medications: Home Meds Furosemide [Lasix] 80 mg PO BID 07/12/17 [History] Spironolactone [Aldactone] 12.5 mg PO BID 07/12/17 [History] Acetaminophen 1,000 mg PO TID 05/22/18 [History] Albuterol Sulfate 2.5 mg NEB Q4H PRN 05/22/18 [History] Ammonium Lactate 1 applic TOP TID PRN 05/22/18 [History] Aspirin [Halfprin] 81 mg PO DAILY 05/22/18 [History] Budesonide/Formoterol [Symbicort 160-4.5 MCG] 2 inhalation INH Q12HR 05/22/18 [ History] Ferrous Sulfate 325 mg PO TIDMEALS 05/22/18 [History] Finasteride 5 mg PO DAILY 05/22/18 [History] Losartan [Cozaar] 100 mg PO DAILY 05/22/18 [History] Melatonin 5 mg PO BEDTIME 05/22/18 [History] Pantoprazole [ProTONIX] 40 mg PO DAILY 05/22/18 [History] Potassium Chloride 20 meq PO BID 05/22/18 [History] Tamsulosin [Flomax] 0.4 mg PO BEDTIME 05/22/18 [History] traZODone HCl [Trazodone HCl] 50 mg PO BEDTIME 05/22/18 [History] Alum Hydrox/Mag Hydrox/Simeth [Maalox Advanced] 30 ml PO Q6H PRN 07/14/18 [ History] Folic Acid 1 mg PO DAILY 07/14/18 [History] Insulin Degludec [Tresiba] 55 unit SUBCUT BEDTIME 07/14/18 [History] Insulin Lispro [Humalog Kwikpen U-100] 0 unit SUBCUT .PER SLIDING SCALE [History] Insulin Lispro [Humalog Kwikpen U-100] 10 unit SUBCUT TIDMEALS 07/14/18 [History ] Magnesium Hydroxide [Milk of Magnesia] 30 ml PO Q72H PRN 07/14/18 [History] Metoprolol Tartrate 25 mg PO BID 07/14/18 [History] Miconazole Nitrate [Anti-Fungal] 1 applic TOP Q12H PRN 07/14/18 [History] Nitroglycerin 0.4 mg SL .EVERY 5 MINUTES PRN MDD 3 TABS, GO TO ER IF STILL PAIN 07/14/18 [History] Nystatin 1 applic TOP BID 07/14/18 [History] Polyethylene Glycol 3350 [MiraLAX] 17 gm PO DAILY 07/14/18 [History] metOLazone [Metolazone] 5 mg PO DAILY 07/14/18 [History] traMADol [Ultram] 50 mg PO TID PRN 07/14/18 [History] Forms: ED Department Discharge Referrals: Aris Quiroga MD [Physician] - 07/21/18 (next [facility] rounds) - Discharge Summary/Plan Comment DC Time >30 min.: No - Patient Data Vitals - Most Recent: Last Vital Signs Temp 36.6 C 07/17/18 07:35 Pulse 96 07/17/18 09:10 Resp 22 H 07/17/18 07:35 BP 93/60 07/17/18 09:10 Pulse Ox 91 L 07/17/18 07:35 Weight - Most Recent: 128.73 kg I&O - Last 24 hours: Intake & Output 07/16/18 07/17/18 07/17/18 22:59 06:59 14:59 Intake Total 820 120 Output Total 2500 1150 Balance -1680 -1150 120 Lab Results - Last 24 hrs: Laboratory Results - last 24 hr 07/16/18 07/16/18 07/16/18 Range/Units 11:21 16:20 21:00 WBC (4.0-11.0) K/uL RBC (4.50-5.90) M/uL Hgb (13.0-17.0) g/dL Hct (38.0-50.0) % MCV (80.0-98.0) fL MCH (27.0-32.0) pg MCHC (31.0-37.0) g/dL RDW Std Deviation (28.0-62.0) fl RDW Coeff of [place] (11.0-15.0) % Plt Count (150-400) K/uL MPV (7.40-12.00) fL Neut % (Auto) (48.0-80.0) % Lymph % (Auto) (16.0-40.0) % [place] % (Auto) (0.0-15.0) % Eos % (Auto) (0.0-7.0) % Baso % (Auto) (0.0-1.5) % Neut # (Auto) (1.4-5.7) K/uL Lymph # (Auto) (0.6-2.4) K/uL [place] # (Auto) (0.0-0.8) K/uL Eos # (Auto) (0.0-0.7) K/uL Baso # (Auto) (0.0-0.1) K/uL Nucleated RBC % /100WBC Nucleated RBCs # K/uL Sodium (136-148) mmol/L Potassium (3.5-5.1) mmol/L Chloride (98-107) mmol/L Carbon Dioxide (21.0-32.0) mmol/L BUN (7.0-18.0) mg/dL Creatinine (0.8-1.3) mg/dL Est Cr Clr Drug Dosing mL/min Estimated GFR (MDRD) ml/min Glucose (74-106) mg/dL POC Glucose 161 H 129 H 163 H (60-110) mg/dL Calcium (8.5-10.1) mg/dL 07/17/18 07/17/18 07/17/18 Range/Units 04:57 05:40 05:40 WBC 8.99 (4.0-11.0) K/uL RBC 3.18 L (4.50-5.90) M/uL Hgb 9.3 L (13.0-17.0) g/dL Hct 30.1 L (38.0-50.0) % MCV 94.7 (80.0-98.0) fL MCH 29.2 (27.0-32.0) pg MCHC 30.9 L (31.0-37.0) g/dL RDW Std Deviation 58.6 (28.0-62.0) fl RDW Coeff of [place] 17 H (11.0-15.0) % Plt Count 303 (150-400) K/uL MPV 9.70 (7.40-12.00) fL Neut % (Auto) 66.2 (48.0-80.0) % Lymph % (Auto) 19.5 (16.0-40.0) % [place] % (Auto) 9.8 (0.0-15.0) % Eos % (Auto) 4.2 (0.0-7.0) % Baso % (Auto) 0.3 (0.0-1.5) % Neut # (Auto) 6.0 H (1.4-5.7) K/uL Lymph # (Auto) 1.8 (0.6-2.4) K/uL [place] # (Auto) 0.9 H (0.0-0.8) K/uL Eos # (Auto) 0.4 (0.0-0.7) K/uL Baso # (Auto) 0.0 (0.0-0.1) K/uL Nucleated RBC % 0.0 /100WBC Nucleated RBCs # 0 K/uL Sodium 140 (136-148) mmol/L Potassium 3.8 (3.5-5.1) mmol/L Chloride 95 L (98-107) mmol/L Carbon Dioxide 37.8 H (21.0-32.0) mmol/L BUN 95 H (7.0-18.0) mg/dL Creatinine 3.3 H (0.8-1.3) mg/dL Est Cr Clr Drug Dosing 18.45 mL/min Estimated GFR (MDRD) 18.2 ml/min Glucose 151 H (74-106) mg/dL POC Glucose 167 H (60-110) mg/dL Calcium 9.0 (8.5-10.1) mg/dL 07/17/18 Range/Units 07:46 WBC (4.0-11.0) K/uL RBC (4.50-5.90) M/uL Hgb (13.0-17.0) g/dL Hct (38.0-50.0) % MCV (80.0-98.0) fL MCH (27.0-32.0) pg MCHC (31.0-37.0) g/dL RDW Std Deviation (28.0-62.0) fl RDW Coeff of [place] (11.0-15.0) % Plt Count (150-400) K/uL MPV (7.40-12.00) fL Neut % (Auto) (48.0-80.0) % Lymph % (Auto) (16.0-40.0) % [place] % (Auto) (0.0-15.0) % Eos % (Auto) (0.0-7.0) % Baso % (Auto) (0.0-1.5) % Neut # (Auto) (1.4-5.7) K/uL Lymph # (Auto) (0.6-2.4) K/uL [place] # (Auto) (0.0-0.8) K/uL Eos # (Auto) (0.0-0.7) K/uL Baso # (Auto) (0.0-0.1) K/uL Nucleated RBC % /100WBC Nucleated RBCs # K/uL Sodium (136-148) mmol/L Potassium (3.5-5.1) mmol/L Chloride (98-107) mmol/L Carbon Dioxide (21.0-32.0) mmol/L BUN (7.0-18.0) mg/dL Creatinine (0.8-1.3) mg/dL Est Cr Clr Drug Dosing mL/min Estimated GFR (MDRD) ml/min Glucose (74-106) mg/dL POC Glucose 125 H (60-110) mg/dL Calcium (8.5-10.1) mg/dL Med Orders - Current: Current Medications Acetaminophen (Tylenol Extra Strength) 1,000 mg PO TID [facility] Last Admin: 07/17/18 06:31 Dose: 1,000 mg Albuterol (Proventil Neb Soln) 2.5 mg NEB Q4H PRN PRN Reason: Shortness of Breath Folic Acid (Folic Acid) 1 mg PO DAILY [facility] Last Admin: 07/17/18 09:01 Dose: 1 mg Furosemide (Lasix) 80 mg IVPUSH BIDDIURETIC [facility] Last Admin: 07/17/18 09:11 Dose: Not Given Pantoprazole Sodium 40 mg/ (Sodium Chloride) 10 mls @ 200 mls/hr IV Q12HR [facility] Last Admin: 07/17/18 09:02 Dose: 200 mls/hr Insulin Aspart (Novolog) 0 unit SUBCUT TIDAC [facility]; Protocol Last Admin: 07/17/18 08:40 Dose: Not Given Insulin Glargine (Lantus Solostar) 30 units SUBCUT BEDTIME [facility] Last Admin: 07/16/18 21:15 Dose: 30 units Metoprolol Tartrate (Lopressor) 25 mg PO BID [facility] Last Admin: 07/17/18 09:10 Dose: Not Given Nystatin (Nystop) 1 gm TOP BID [facility] Last Admin: 07/17/18 09:11 Dose: 1 applic Ondansetron HCl (Zofran) 4 mg IVPUSH Q4H PRN PRN Reason: Nausea Budesonide/Formoterol 160-4.5 Mcg/Puff [Symbicort] 2 each INH Q12HR [facility] Last Admin: 07/17/18 09:13 Dose: Not Given Miconazole Nitrate 1 (Applic) 1 each TOP Q12H PRN PRN Reason: ITCHY SKIN FOLDS Sodium Chloride (Saline Flush) 10 ml FLUSH ASDIRECTED PRN PRN Reason: Keep Vein Open Sodium Chloride (Saline Flush) 2.5 ml FLUSH ASDIRECTED PRN PRN Reason: Keep Vein Open Sucralfate (Carafate) 1 gm PO QIDACANDBED [facility] Last Admin: 07/17/18 06:31 Dose: 1 gm Tramadol HCl (Ultram) 50 mg PO TID PRN PRN Reason: KNEE PAIN Trazodone HCl (Trazodone) 50 mg PO BEDTIME [facility] Last Admin: 07/16/18 21:16 Dose: 50 mg Discontinued Medications Acetaminophen (Tylenol) 650 mg PO Q4H PRN PRN Reason: Pain (mild 1-3) Finasteride (Proscar) 5 mg PO DAILY [facility] Furosemide (Lasix) 80 mg IVPUSH NOW ONE Stop: 07/14/18 16:26 Last Admin: 07/14/18 17:37 Dose: 80 mg Furosemide (Lasix) 80 mg IVPUSH NOW ONE Stop: 07/15/18 10:01 Last Admin: 07/15/18 10:28 Dose: 80 mg Pantoprazole Sodium (Protonix Iv) 80 mg IVPUSH .BOLUS ONE Stop: 07/14/18 15:24 Last Admin: 07/14/18 15:53 Dose: 80 mg Sodium Chloride (Saline Flush) 10 ml FLUSH ASDIRECTED PRN PRN Reason: Keep Vein Open Sodium Chloride (Saline Flush) 2.5 ml FLUSH ASDIRECTED PRN PRN Reason: Keep Vein Open Tamsulosin HCl (Flomax) 0.4 mg PO BEDTIME [facility] *Q Meaningful Use (DIS) - VTE *Q VTE Pharmacological Contraindications *Q: Risk of Bleeding <Gerard Nieto - Last Filed: 07/17/18 13:19> Discharge Summary - Hospital Course HPI Initial Comments: I have seen and examined to patient independently of [facility], Jonah Stevenson MD. I have discussed the case for care of this patient with him. I have reviewed and approve of the plan of care as outlined by [facility].. Please see orders. - Discharge Diagnosis/Problem(s) (1) CHF exacerbation SNOMED Code(s): 131245310 ICD Code: I50.9 - HEART FAILURE, UNSPECIFIED Status: Suspected Priority: High Current Visit: Yes Qualifiers: Heart failure type: diastolic Qualified Code(s): I50.33 - Acute on chronic diastolic (congestive) heart failure (2) HTN (hypertension) SNOMED Code(s): 24902206 ICD Code: I10 - ESSENTIAL (PRIMARY) HYPERTENSION Status: Chronic Priority : High Current Visit: Yes Qualifiers: Hypertension type: essential hypertension Qualified Code(s): I10 - Essential (primary) hypertension (3) COPD (chronic obstructive pulmonary disease) SNOMED Code(s): 79333420 ICD Code: J44.9 - CHRONIC OBSTRUCTIVE PULMONARY DISEASE, UNSPECIFIED Status : Chronic Priority: High Current Visit: Yes Qualifiers: COPD type: COPD with acute lower respiratory infection Qualified Code(s): J44.0 - Chronic obstructive pulmonary disease with acute lower respiratory infection (4) CKD (chronic kidney disease) SNOMED Code(s): 142708661 ICD Code: N18.9 - CHRONIC KIDNEY DISEASE, UNSPECIFIED Status: Chronic Priority: High Current Visit: Yes Qualifiers: Chronic kidney disease stage: stage 3 (moderate) Qualified Code(s): N18.3 - Chronic kidney disease, stage 3 (moderate) - Patient Data Vitals - Most Recent: Last Vital Signs Temp 36.6 C 07/17/18 07:35 Pulse 96 07/17/18 09:10 Resp 22 H 07/17/18 07:35 BP 93/60 07/17/18 09:10 Pulse Ox 91 L 07/17/18 07:35 I&O - Last 24 hours: Intake & Output 07/16/18 07/17/18 07/17/18 22:59 06:59 14:59 Intake Total 820 120 Output Total 2500 1150 Balance -1680 -1150 120 Lab Results - Last 24 hrs: Laboratory Results - last 24 hr 07/16/18 07/16/18 07/17/18 Range/Units 16:20 21:00 04:57 WBC (4.0-11.0) K/uL RBC (4.50-5.90) M/uL Hgb (13.0-17.0) g/dL Hct (38.0-50.0) % MCV (80.0-98.0) fL MCH (27.0-32.0) pg MCHC (31.0-37.0) g/dL RDW Std Deviation (28.0-62.0) fl RDW Coeff of [place] (11.0-15.0) % Plt Count (150-400) K/uL MPV (7.40-12.00) fL Neut % (Auto) (48.0-80.0) % Lymph % (Auto) (16.0-40.0) % [place] % (Auto) (0.0-15.0) % Eos % (Auto) (0.0-7.0) % Baso % (Auto) (0.0-1.5) % Neut # (Auto) (1.4-5.7) K/uL Lymph # (Auto) (0.6-2.4) K/uL [place] # (Auto) (0.0-0.8) K/uL Eos # (Auto) (0.0-0.7) K/uL Baso # (Auto) (0.0-0.1) K/uL Nucleated RBC % /100WBC Nucleated RBCs # K/uL Sodium (136-148) mmol/L Potassium (3.5-5.1) mmol/L Chloride (98-107) mmol/L Carbon Dioxide (21.0-32.0) mmol/L BUN (7.0-18.0) mg/dL Creatinine (0.8-1.3) mg/dL Est Cr Clr Drug Dosing mL/min Estimated GFR (MDRD) ml/min Glucose (74-106) mg/dL POC Glucose 129 H 163 H 167 H (60-110) mg/dL Calcium (8.5-10.1) mg/dL 07/17/18 07/17/18 07/17/18 Range/Units 05:40 05:40 07:46 WBC 8.99 (4.0-11.0) K/uL RBC 3.18 L (4.50-5.90) M/uL Hgb 9.3 L (13.0-17.0) g/dL Hct 30.1 L (38.0-50.0) % MCV 94.7 (80.0-98.0) fL MCH 29.2 (27.0-32.0) pg MCHC 30.9 L (31.0-37.0) g/dL RDW Std Deviation 58.6 (28.0-62.0) fl RDW Coeff of [place] 17 H (11.0-15.0) % Plt Count 303 (150-400) K/uL MPV 9.70 (7.40-12.00) fL Neut % (Auto) 66.2 (48.0-80.0) % Lymph % (Auto) 19.5 (16.0-40.0) % [place] % (Auto) 9.8 (0.0-15.0) % Eos % (Auto) 4.2 (0.0-7.0) % Baso % (Auto) 0.3 (0.0-1.5) % Neut # (Auto) 6.0 H (1.4-5.7) K/uL Lymph # (Auto) 1.8 (0.6-2.4) K/uL [place] # (Auto) 0.9 H (0.0-0.8) K/uL Eos # (Auto) 0.4 (0.0-0.7) K/uL Baso # (Auto) 0.0 (0.0-0.1) K/uL Nucleated RBC % 0.0 /100WBC Nucleated RBCs # 0 K/uL Sodium 140 (136-148) mmol/L Potassium 3.8 (3.5-5.1) mmol/L Chloride 95 L (98-107) mmol/L Carbon Dioxide 37.8 H (21.0-32.0) mmol/L BUN 95 H (7.0-18.0) mg/dL Creatinine 3.3 H (0.8-1.3) mg/dL Est Cr Clr Drug Dosing 18.45 mL/min Estimated GFR (MDRD) 18.2 ml/min Glucose 151 H (74-106) mg/dL POC Glucose 125 H (60-110) mg/dL Calcium 9.0 (8.5-10.1) mg/dL 07/17/18 Range/Units 11:37 WBC (4.0-11.0) K/uL RBC (4.50-5.90) M/uL Hgb (13.0-17.0) g/dL Hct (38.0-50.0) % MCV (80.0-98.0) fL MCH (27.0-32.0) pg MCHC (31.0-37.0) g/dL RDW Std Deviation (28.0-62.0) fl RDW Coeff of [place] (11.0-15.0) % Plt Count (150-400) K/uL MPV (7.40-12.00) fL Neut % (Auto) (48.0-80.0) % Lymph % (Auto) (16.0-40.0) % [place] % (Auto) (0.0-15.0) % Eos % (Auto) (0.0-7.0) % Baso % (Auto) (0.0-1.5) % Neut # (Auto) (1.4-5.7) K/uL Lymph # (Auto) (0.6-2.4) K/uL [place] # (Auto) (0.0-0.8) K/uL Eos # (Auto) (0.0-0.7) K/uL Baso # (Auto) (0.0-0.1) K/uL Nucleated RBC % /100WBC Nucleated RBCs # K/uL Sodium (136-148) mmol/L Potassium (3.5-5.1) mmol/L Chloride (98-107) mmol/L Carbon Dioxide (21.0-32.0) mmol/L BUN (7.0-18.0) mg/dL Creatinine (0.8-1.3) mg/dL Est Cr Clr Drug Dosing mL/min Estimated GFR (MDRD) ml/min Glucose (74-106) mg/dL POC Glucose 168 H (60-110) mg/dL Calcium (8.5-10.1) mg/dL Med Orders - Current: Current Medications Acetaminophen (Tylenol Extra Strength) 1,000 mg PO TID [facility] Last Admin: 07/17/18 06:31 Dose: 1,000 mg Albuterol (Proventil Neb Soln) 2.5 mg NEB Q4H PRN PRN Reason: Shortness of Breath Folic Acid (Folic Acid) 1 mg PO DAILY [facility] Last Admin: 07/17/18 09:01 Dose: 1 mg Furosemide (Lasix) 80 mg IVPUSH BIDDIURETIC [facility] Last Admin: 07/17/18 09:11 Dose: Not Given Pantoprazole Sodium 40 mg/ (Sodium Chloride) 10 mls @ 200 mls/hr IV Q12HR [facility] Last Admin: 07/17/18 09:02 Dose: 200 mls/hr Insulin Aspart (Novolog) 0 unit SUBCUT TIDAC [facility]; Protocol Last Admin: 07/17/18 11:45 Dose: 2 units Insulin Glargine (Lantus Solostar) 30 units SUBCUT BEDTIME [facility] Last Admin: 07/16/18 21:15 Dose: 30 units Metoprolol Tartrate (Lopressor) 25 mg PO BID [facility] Last Admin: 07/17/18 09:10 Dose: Not Given Nystatin (Nystop) 1 gm TOP BID [facility] Last Admin: 07/17/18 09:11 Dose: 1 applic Ondansetron HCl (Zofran) 4 mg IVPUSH Q4H PRN PRN Reason: Nausea Budesonide/Formoterol 160-4.5 Mcg/Puff [Symbicort] 2 each INH Q12HR [facility] Last Admin: 07/17/18 09:13 Dose: Not Given Miconazole Nitrate 1 (Applic) 1 each TOP Q12H PRN PRN Reason: ITCHY SKIN FOLDS Sodium Chloride (Saline Flush) 10 ml FLUSH ASDIRECTED PRN PRN Reason: Keep Vein Open Sodium Chloride (Saline Flush) 2.5 ml FLUSH ASDIRECTED PRN PRN Reason: Keep Vein Open Sucralfate (Carafate) 1 gm PO QIDACANDBED [facility] Last Admin: 07/17/18 06:31 Dose: 1 gm Tramadol HCl (Ultram) 50 mg PO TID PRN PRN Reason: KNEE PAIN Trazodone HCl (Trazodone) 50 mg PO BEDTIME [facility] Last Admin: 07/16/18 21:16 Dose: 50 mg Discontinued Medications Acetaminophen (Tylenol) 650 mg PO Q4H PRN PRN Reason: Pain (mild 1-3) Finasteride (Proscar) 5 mg PO DAILY [facility] Furosemide (Lasix) 80 mg IVPUSH NOW ONE Stop: 07/14/18 16:26 Last Admin: 07/14/18 17:37 Dose: 80 mg Furosemide (Lasix) 80 mg IVPUSH NOW ONE Stop: 07/15/18 10:01 Last Admin: 07/15/18 10:28 Dose: 80 mg Pantoprazole Sodium (Protonix Iv) 80 mg IVPUSH .BOLUS ONE Stop: 07/14/18 15:24 Last Admin: 07/14/18 15:53 Dose: 80 mg Sodium Chloride (Saline Flush) 10 ml FLUSH ASDIRECTED PRN PRN Reason: Keep Vein Open Sodium Chloride (Saline Flush) 2.5 ml FLUSH ASDIRECTED PRN PRN Reason: Keep Vein Open Tamsulosin HCl (Flomax) 0.4 mg PO BEDTIME [facility]
== END 2018-07-17 12:00 ==
LOC: MW.ED 14:26 → MW.MS 16:17
PROVIDERS: ADMIT Internal Medicine; ATTEND Internal Medicine
DX: D50.0 Iron deficiency anemia secondary to blood loss (chronic) (principal); N17.9 Acute kidney failure, unspecified; I13.0 Hypertensive heart and chronic kidney disease with heart failure and stage 1 through stage 4 chronic kidney disease, or unspecified chronic kidney disease; E11.22 Type 2 diabetes mellitus with diabetic chronic kidney disease; I50.33 Acute on chronic diastolic (congestive) heart failure; N18.3 Chronic kidney disease, stage 3 (moderate); I25.10 Atherosclerotic heart disease of native coronary artery without angina pectoris; I48.0 Paroxysmal atrial fibrillation; I25.2 Old myocardial infarction; E78.00 Pure hypercholesterolemia, unspecified; J44.9 Chronic obstructive pulmonary disease, unspecified; E66.01 Morbid (severe) obesity due to excess calories; Z68.43 Body mass index [BMI] 50.0-59.9, adult; Z98.84 Bariatric surgery status; Z99.81 Dependence on supplemental oxygen; Z66 Do not resuscitate; Z87.891 Personal history of nicotine dependence; Z79.82 Long term (current) use of aspirin; Z79.51 Long term (current) use of inhaled steroids; Z79.4 Long term (current) use of insulin; Z79.899 Other long term (current) drug therapy
CPT/HCPCS: 36415; 43999; 71045; 80048; 82962; 85014; 85018; 85025; 85610; 85730; 96374; 96375; 96376; 99284; A9270; C9113; G0378; J1815; J1940; J7050; P9016; 36430

== ENCOUNTER 2018-08-20 11:29 | Inpatient (IN) | payer MEDICARE, OTHER ==
[2018-08-20] MEDS ORDERED: Sodium Chloride 0.9% 2.5 ML Syringe FLUSH PRN (11:46)
[2018-08-20] MEDS ORDERED: Sodium Chloride 0.9% 10 ML Syringe FLUSH PRN (11:46)
[2018-08-20] MEDS ORDERED: Pantoprazole 40 MG Vial IVPUSH ONE (11:46)
--- NOTE | 2018-08-20 11:53 | EDM.PDOC ---
ED HPI GENERAL MEDICAL PROBLEM - General Chief Complaint: Cardiovascular Problem Stated Complaint: LOW HEMOGLOBIN Time Seen by Provider: 08/20/18 11:41 - History of Present Illness INITIAL COMMENTS - FREE TEXT/NARRATIVE: HISTORY AND PHYSICAL: History of present illness: Patient 77-year-old male was sent from [facility] with an extensive past medical history including atrial fibrillation chronic anemia who was scheduled to get colonoscopy reportedly for his anemia and then was noted to have a hemoglobin of 6 today on a routine lab test blood pressure is 90/60 year patient has no abdominal pain no chest pain shortness breath or other complaints on arrival. Review of systems: As per history of present illness and below otherwise all systems reviewed and negative. Past medical history: As per history of present illness and as reviewed below otherwise noncontributory. Surgical history: As per history of present illness and as reviewed below otherwise noncontributory. Social history: No reported history of drug or alcohol abuse. Family history: As per history of present illness and as reviewed below otherwise noncontributory. Physical exam: HEENT: Atraumatic, normocephalic, pupils reactive, conjunctival pallor noted no scleral icterus, mucous membranes moist, throat clear, neck supple, nontender, trachea midline. Lungs: Clear to auscultation, breath sounds equal bilaterally, chest nontender. Heart: S1S2, regular, negative for clicks, rubs, or JVD. Abdomen: Soft, nondistended, nontender. Negative for masses or hepatosplenomegaly. Negative for costovertebral tenderness. Pelvis: Stable nontender. Genitourinary: Deferred. Rectal: Deferred. Extremities: Atraumatic, negative for cords or calf pain. Neurovascular unremarkable. Neuro: Awake, alert, oriented. Follows commands and moves all extremities limited grossly nonfocal exam. Diagnostics: CBC CMP troponin PT/INR type and cross 2 units packed RBCs chest x-ray EKG IV O2 monitor Therapeutics: IV O2 monitor Protonix 80 mg IV transfuse 2 units packed RBCs saline 500 mL bottle Impression: #1 profound anemia Definitive disposition and diagnosis as appropriate pending reevaluation and review of above. - Related Data Allergies Allergy/AdvReac Type Severity Reaction Status Date / Time morphine Allergy Itching Verified 08/20/18 11:50 Home Meds: Home Meds Furosemide [Lasix] 80 mg PO BID 07/12/17 [History] Spironolactone [Aldactone] 12.5 mg PO BID 07/12/17 [History] Acetaminophen 1,000 mg PO TID 05/22/18 [History] Albuterol Sulfate 2.5 mg NEB Q4H PRN 05/22/18 [History] Ammonium Lactate 1 applic TOP TID PRN 05/22/18 [History] Aspirin [Halfprin] 81 mg PO DAILY 05/22/18 [History] Budesonide/Formoterol [Symbicort 160-4.5 MCG] 2 inhalation INH Q12HR 05/22/18 [ History] Ferrous Sulfate 325 mg PO TIDMEALS 05/22/18 [History] Finasteride 5 mg PO DAILY 05/22/18 [History] Losartan [Cozaar] 100 mg PO DAILY 05/22/18 [History] Melatonin 5 mg PO BEDTIME 05/22/18 [History] Pantoprazole [ProTONIX] 40 mg PO DAILY 05/22/18 [History] Potassium Chloride 20 meq PO BID 05/22/18 [History] Tamsulosin [Flomax] 0.4 mg PO BEDTIME 05/22/18 [History] traZODone HCl [Trazodone HCl] 50 mg PO BEDTIME 05/22/18 [History] Alum Hydrox/Mag Hydrox/Simeth [Maalox Advanced] 30 ml PO Q6H PRN 07/14/18 [ History] Folic Acid 1 mg PO DAILY 07/14/18 [History] Insulin Degludec [Tresiba] 55 unit SUBCUT BEDTIME 07/14/18 [History] Insulin Lispro [Humalog Kwikpen U-100] 0 unit SUBCUT .PER SLIDING SCALE [History] Insulin Lispro [Humalog Kwikpen U-100] 10 unit SUBCUT TIDMEALS 07/14/18 [History ] Magnesium Hydroxide [Milk of Magnesia] 30 ml PO Q72H PRN 07/14/18 [History] Metoprolol Tartrate 25 mg PO BID 07/14/18 [History] Miconazole Nitrate [Anti-Fungal] 1 applic TOP Q12H PRN 07/14/18 [History] Nitroglycerin 0.4 mg SL .EVERY 5 MINUTES PRN MDD 3 TABS, GO TO ER IF STILL PAIN 07/14/18 [History] Nystatin 1 applic TOP BID 07/14/18 [History] Polyethylene Glycol 3350 [MiraLAX] 17 gm PO DAILY 07/14/18 [History] metOLazone [Metolazone] 5 mg PO DAILY 07/14/18 [History] traMADol [Ultram] 50 mg PO TID PRN 07/14/18 [History] Past Medical History HEENT History: Reports: Hard of Hearing, Impaired Vision Other HEENT History: wears glasses, top denture, annalisa hearing aids Cardiovascular History: Reports: Afib, Heart Failure, High Cholesterol, Hypertension, IN, SOB on Exertion Respiratory History: Reports: PE, SOB, Other (See Below) (Oxygen dependent, 2 L NC) Gastrointestinal History: Reports: GERD, Other (See Below) Other Gastrointestinal History: occasional heartburn Genitourinary History: Reports: Renal Calculus Other Genitourinary History: hx kidney stones Musculoskeletal History: Reports: Arthritis, Back Pain, Chronic, Osteoarthritis , Other (See Below) Other Musculoskeletal History: Chronic bilateral knee pain , localized edema Neurological History: Reports: None Psychiatric History: Reports: None Endocrine/Metabolic History: Reports: Diabetes, Type II, Obesity/BMI 30+ Hematologic History: Reports: None Immunologic History: Reports: None Oncologic (Cancer) History: Reports: None Dermatologic History: Reports: None - Infectious Disease History Infectious Disease History: Reports: Chicken Pox, Measles, Mumps - Past Surgical History Head Surgeries/Procedures: Reports: None HEENT Surgical History: Reports: None Cardiovascular Surgical History: Reports: None Respiratory Surgical History: Reports: None GI Surgical History: Reports: EGD Male Surgical History: Reports: None Endocrine Surgical History: Reports: None Neurological Surgical History: Reports: None Musculoskeletal Surgical History: Reports: Arthroscopic Knee, Knee Replacement Oncologic Surgical History: Reports: None Dermatological Surgical History: Reports: None Social & Family History - Family History Family Medical History: Noncontributory - Caffeine Use Caffeine Use: Reports: Coffee - Living Situation & Occupation Living situation: Reports: Alone Occupation: Retired ED ROS GENERAL - Review of Systems Review Of Systems: ROS reveals no pertinent complaints other than HPI. ED EXAM, GENERAL - Physical Exam Exam: See Below (See dictation) Course - Vital Signs Last Recorded V/S: Last Vital Signs Temp 36.4 C 08/20/18 11:50 Pulse 60 08/20/18 12:51 Resp 18 08/20/18 12:51 BP 91/52 L 08/20/18 12:51 Pulse Ox 99 08/20/18 12:51 - Orders/Labs/Meds Orders: Active Orders 24 hr Category Date Time Status Cardiac Monitoring [RC] . DIRECTED Care 08/20/18 11:45 Active EKG Documentation Completion [RC] STAT Care 08/20/18 11:45 Active Pulse Oximetry [RC] ASDIRECTED Care 08/20/18 11:45 Active Chest 1V Frontal [CR] Stat Exams 08/20/18 11:46 Taken RED BLOOD CELLS LP [BBK] Stat Lab 08/20/18 11:56 Results TYPE AND SCREEN [BBK] Stat Lab 08/20/18 11:56 Results UA RFX ELVIA AND CULT IF INDIC [URIN] Stat Lab 08/20/18 11:45 Ordered Sodium Chloride 0.9% [Normal Saline] 500 ml Med 08/20/18 12:00 Active IV STAT Sodium Chloride 0.9% [Saline Flush] Med 08/20/18 11:46 Active 10 ml FLUSH ASDIRECTED PRN Sodium Chloride 0.9% [Saline Flush] Med 08/20/18 11:46 Active 2.5 ml FLUSH ASDIRECTED PRN Saline Lock Insert [OM.PC] Stat Oth 08/20/18 11:44 Ordered Transfuse Red Blood Cells [COMM] Stat Oth 08/20/18 11:51 Ordered Medication Orders Sodium Chloride (Normal Saline) 500 mls @ 999 mls/hr IV STAT [facility] Last Admin: 08/20/18 12:25 Dose: 999 mls/hr Sodium Chloride (Saline Flush) 10 ml FLUSH ASDIRECTED PRN PRN Reason: Keep Vein Open Last Admin: 08/20/18 12:26 Dose: 10 ml Sodium Chloride (Saline Flush) 2.5 ml FLUSH ASDIRECTED PRN PRN Reason: Keep Vein Open Last Admin: 08/20/18 12:26 Dose: 2.5 ml Labs: Laboratory Tests 08/20/18 08/20/18 08/20/18 Range/Units 11:46 11:46 11:46 WBC 10.43 (4.0-11.0) K/uL RBC 2.04 L (4.50-5.90) M/uL Hgb 6.1 L (13.0-17.0) g/dL Hct 19.6 L (38.0-50.0) % MCV 96.1 (80.0-98.0) fL MCH 29.9 (27.0-32.0) pg MCHC 31.1 (31.0-37.0) g/dL RDW Std Deviation 54.1 (28.0-62.0) fl RDW Coeff of [place] 15 (11.0-15.0) % Plt Count 214 (150-400) K/uL MPV 9.10 (7.40-12.00) fL Neut % (Auto) 75.6 (48.0-80.0) % Lymph % (Auto) 17.0 (16.0-40.0) % [place] % (Auto) 5.6 (0.0-15.0) % Eos % (Auto) 1.6 (0.0-7.0) % Baso % (Auto) 0.2 (0.0-1.5) % Neut # (Auto) 7.9 H (1.4-5.7) K/uL Lymph # (Auto) 1.8 (0.6-2.4) K/uL [place] # (Auto) 0.6 (0.0-0.8) K/uL Eos # (Auto) 0.2 (0.0-0.7) K/uL Baso # (Auto) 0.0 (0.0-0.1) K/uL Nucleated RBC % 0.0 /100WBC Nucleated RBCs # 0 K/uL INR 1.02 Sodium 134 L (136-148) mmol/L Potassium 5.4 H (3.5-5.1) mmol/L Chloride 98 (98-107) mmol/L Carbon Dioxide 27.1 (21.0-32.0) mmol/L BUN 132 H (7.0-18.0) mg/dL Creatinine 3.3 H (0.8-1.3) mg/dL Est Cr Clr Drug Dosing 19.05 mL/min Estimated GFR (MDRD) 18.2 ml/min Glucose 105 (74-106) mg/dL Calcium 8.6 (8.5-10.1) mg/dL Total Bilirubin 0.3 (0.2-1.0) mg/dL AST 10 L (15-37) IU/L ALT 15 (14-63) IU/L Alkaline Phosphatase 47 (46-116) U/L Troponin I < 0.050 (0.000-0.056) ng/mL Total Protein 5.8 L (6.4-8.2) g/dL Albumin 3.0 L (3.4-5.0) g/dL Globulin 2.8 (2.6-4.0) g/dL Albumin/Globulin Ratio 1.1 (0.9-1.6) Blood Type Antibody Screen Crossmatch 08/20/18 Range/Units 11:56 WBC (4.0-11.0) K/uL RBC (4.50-5.90) M/uL Hgb (13.0-17.0) g/dL Hct (38.0-50.0) % MCV (80.0-98.0) fL MCH (27.0-32.0) pg MCHC (31.0-37.0) g/dL RDW Std Deviation (28.0-62.0) fl RDW Coeff of [place] (11.0-15.0) % Plt Count (150-400) K/uL MPV (7.40-12.00) fL Neut % (Auto) (48.0-80.0) % Lymph % (Auto) (16.0-40.0) % [place] % (Auto) (0.0-15.0) % Eos % (Auto) (0.0-7.0) % Baso % (Auto) (0.0-1.5) % Neut # (Auto) (1.4-5.7) K/uL Lymph # (Auto) (0.6-2.4) K/uL [place] # (Auto) (0.0-0.8) K/uL Eos # (Auto) (0.0-0.7) K/uL Baso # (Auto) (0.0-0.1) K/uL Nucleated RBC % /100WBC Nucleated RBCs # K/uL INR Sodium (136-148) mmol/L Potassium (3.5-5.1) mmol/L Chloride (98-107) mmol/L Carbon Dioxide (21.0-32.0) mmol/L BUN (7.0-18.0) mg/dL Creatinine (0.8-1.3) mg/dL Est Cr Clr Drug Dosing mL/min Estimated GFR (MDRD) ml/min Glucose (74-106) mg/dL Calcium (8.5-10.1) mg/dL Total Bilirubin (0.2-1.0) mg/dL AST (15-37) IU/L ALT (14-63) IU/L Alkaline Phosphatase (46-116) U/L Troponin I (0.000-0.056) ng/mL Total Protein (6.4-8.2) g/dL Albumin (3.4-5.0) g/dL Globulin (2.6-4.0) g/dL Albumin/Globulin Ratio (0.9-1.6) Blood Type O POSITIVE Antibody Screen NEGATIVE Crossmatch See Detail Meds: Medications Generic Name Dose Route Start Last Admin Trade Name Freq PRN Reason Stop Dose Admin Sodium Chloride 500 mls @ 999 mls/hr 08/20/18 12:00 08/20/18 12:25 Normal Saline IV 999 mls/hr STAT BLANCA Administration Sodium Chloride 10 ml 08/20/18 11:46 08/20/18 12:26 Saline Flush FLUSH 10 ml ASDIRECTED PRN Administration Keep Vein Open Sodium Chloride 2.5 ml 08/20/18 11:46 08/20/18 12:26 Saline Flush FLUSH 2.5 ml ASDIRECTED PRN Administration Keep Vein Open Discontinued Medications Generic Name Dose Route Start Last Admin Trade Name Anthonyq PRN Reason Stop Dose Admin Sterile Water Confirm 08/20/18 12:15 Sterile Water For Injection Administered 08/20/18 12:16 Dose 40 mls @ as directed .ROUTE .STK-MED ONE Pantoprazole Sodium 80 mg 08/20/18 11:46 08/20/18 12:27 Protonix Iv IVPUSH 08/20/18 11:47 80 mg .BOLUS ONE Administration Departure - Departure Time of Disposition: 13:22 Disposition: Refer to Observation Condition: Good Clinical Impression: GI bleed, Do not resuscitate Anemia Qualifiers: Anemia type: iron deficiency Iron deficiency anemia type: chronic blood loss Qualified Code(s): D50.0 - Iron deficiency anemia secondary to blood loss ( chronic) Referrals: Aris Quiroga MD [Primary Care Provider] - Forms: ED Department Discharge - My Orders Last 24 Hours: My Active Orders 08/20/18 11:44 Saline Lock Insert [OM.PC] Stat 08/20/18 11:45 Cardiac Monitoring [RC] . DIRECTED EKG Documentation Completion [RC] STAT Pulse Oximetry [RC] ASDIRECTED UA RFX ELVIA AND CULT IF INDIC [URIN] Stat 08/20/18 11:46 Chest 1V Frontal [CR] Stat Sodium Chloride 0.9% [Saline Flush] 10 ml FLUSH ASDIRECTED PRN Sodium Chloride 0.9% [Saline Flush] 2.5 ml FLUSH ASDIRECTED PRN 08/20/18 11:56 TYPE AND SCREEN [BBK] Stat 08/20/18 12:00 Sodium Chloride 0.9% [Normal Saline] 500 ml IV STAT - Assessment/Plan Last 24 Hours: My Active Orders 08/20/18 11:44 Saline Lock Insert [OM.PC] Stat 08/20/18 11:45 Cardiac Monitoring [RC] . DIRECTED EKG Documentation Completion [RC] STAT Pulse Oximetry [RC] ASDIRECTED UA RFX ELVIA AND CULT IF INDIC [URIN] Stat 08/20/18 11:46 Chest 1V Frontal [CR] Stat Sodium Chloride 0.9% [Saline Flush] 10 ml FLUSH ASDIRECTED PRN Sodium Chloride 0.9% [Saline Flush] 2.5 ml FLUSH ASDIRECTED PRN 08/20/18 11:56 TYPE AND SCREEN [BBK] Stat 08/20/18 12:00 Sodium Chloride 0.9% [Normal Saline] 500 ml IV STAT
[2018-08-20] MEDS ORDERED: Sodium Chloride 0.9% 500 ML IV SCH (12:00)
[2018-08-20] MEDS ORDERED: Water For Injection, Sterile 40 ML ONE (12:15)
[2018-08-20 12:35] LABS: CHLORIDE,CL 98 mmol/L (98-107); SODIUM,NA 134 mmol/L (136-148)
--- NOTE | 2018-08-20 13:37 | CR ---
INDICATION: Shortness of breath, chest pain. COMPARISON: none TECHNIQUE: Portable AP erect chest performed at 12:03 p.m. FINDINGS: The lungs are clear. The heart, mediastinum and pulmonary vessels are of normal size. There is no evidence of pleural fluid. IMPRESSION: Negative chest. Dictated by Elías Noe MD @ Aug 20 2018 1:35PM Signed by Dr. Elías Noe @ Aug 20 2018 1:36PM
[2018-08-20] MEDS ORDERED: Acetaminophen 325 MG Tab PO PRN (13:50)
[2018-08-20] MEDS ORDERED: Polyethylene Glycol 3350 Powder 17 GM Packet PO PRN (13:50)
--- NOTE | 2018-08-20 14:41 | PCM.HP ---
<Joycelyn Dela Cruz M - Last Filed: 08/20/18 15:10> H&P History of Present Illness - General Date of Service: 08/20/18 Admit Problem/Dx: Admission Diagnosis/Problem Admission Diagnosis/Problem Anemia/ GI bleed Source of Information: Patient, Old Records - History of Present Illness Initial Comments - Free Text/Narative: This 77 year old male with pmh of CHF, COPD oxygen dependent, CKD, HTN, Afib, DM Type 2, and recent significant GI bleeding, most recently transfused end of July. He reports he started not feeling week 4-5 days ago and today the [place] [facility] noted his BP to be low, 90/50s. He was sent to ED for evaluation and labwork. He reports mild epigastric pain with nausea and overall fatigue with exertional dyspnea. He was recently evaluated by Dr Morrow, [facility] and scheduled to have endoscopy the beginning of September. He denies chest pain and no overt abdominal pain. Reports black stools. No focal neurologic concerns. No urinary concerns. Peripheral swelling has improved since last admission. In the ED anemia noted, hgb 6.1, Na 134, K 5.4, BUN 132, and Cr 3.3, which is near baseline for him. Troponin negative. BPS running 80-90/50s. CXR negative. He was given Protonix 80 mg IV. and 1 unit pRBCs. PCP, Dr Quiroga. Body Aches Pain Score (Numeric/FACES): 5 - Related Data Allergies/Adverse Reactions: Allergies Allergy/AdvReac Type Severity Reaction Status Date / Time morphine Allergy Itching Verified 08/20/18 15:05 Home Medications: Home Meds Furosemide [Lasix] 80 mg PO BID 07/12/17 [History] Spironolactone [Aldactone] 12.5 mg PO BID 07/12/17 [History] Acetaminophen 1,000 mg PO TID 05/22/18 [History] Albuterol Sulfate 2.5 mg NEB Q4H PRN 05/22/18 [History] Ammonium Lactate 1 applic TOP TID PRN 05/22/18 [History] Aspirin [Halfprin] 81 mg PO DAILY 05/22/18 [History] Budesonide/Formoterol [Symbicort 160-4.5 MCG] 2 inhalation INH Q12HR 05/22/18 [ History] Ferrous Sulfate 325 mg PO TIDMEALS 05/22/18 [History] Finasteride 5 mg PO DAILY 05/22/18 [History] Losartan [Cozaar] 100 mg PO DAILY 05/22/18 [History] Melatonin 5 mg PO BEDTIME 05/22/18 [History] Pantoprazole [ProTONIX] 40 mg PO DAILY 05/22/18 [History] Tamsulosin [Flomax] 0.4 mg PO BEDTIME 05/22/18 [History] traZODone HCl [Trazodone HCl] 50 mg PO BEDTIME 05/22/18 [History] Alum Hydrox/Mag Hydrox/Simeth [Maalox Advanced] 30 ml PO Q6H PRN 07/14/18 [ History] Folic Acid 1 mg PO DAILY 07/14/18 [History] Insulin Degludec [Tresiba] 50 unit SUBCUT BEDTIME 07/14/18 [History] Insulin Lispro [Humalog Kwikpen U-100] 0 unit SUBCUT .PER SLIDING SCALE [History] Insulin Lispro [Humalog Kwikpen U-100] 10 unit SUBCUT TIDMEALS 07/14/18 [History ] Magnesium Hydroxide [Milk of Magnesia] 30 ml PO Q72H PRN 07/14/18 [History] Metoprolol Tartrate 25 mg PO BID 07/14/18 [History] Miconazole Nitrate [Anti-Fungal] 1 applic TOP Q12H PRN 07/14/18 [History] Nitroglycerin 0.4 mg SL .EVERY 5 MINUTES PRN MDD 3 TABS, GO TO ER IF STILL PAIN 07/14/18 [History] Nystatin 1 applic TOP BID 07/14/18 [History] Polyethylene Glycol 3350 [MiraLAX] 17 gm PO DAILY 07/14/18 [History] metOLazone [Metolazone] 5 mg PO DAILY 07/14/18 [History] traMADol [Ultram] 50 mg PO TID PRN 07/14/18 [History] Past Medical History HEENT History: Reports: Hard of Hearing, Impaired Vision Other HEENT History: wears glasses, top denture, annalisa hearing aids Cardiovascular History: Reports: Afib, Heart Failure, High Cholesterol, Hypertension, CT, SOB on Exertion Respiratory History: Reports: PE, SOB, Other (See Below) (Oxygen dependent, 2 L NC) Gastrointestinal History: Reports: GERD, Other (See Below) Other Gastrointestinal History: occasional heartburn Genitourinary History: Reports: Renal Calculus Other Genitourinary History: hx kidney stones Musculoskeletal History: Reports: Arthritis, Back Pain, Chronic, Osteoarthritis , Other (See Below) Other Musculoskeletal History: Chronic bilateral knee pain , localized edema Neurological History: Reports: None Psychiatric History: Reports: None Endocrine/Metabolic History: Reports: Diabetes, Type II, Obesity/BMI 30+ Hematologic History: Reports: None Immunologic History: Reports: None Oncologic (Cancer) History: Reports: None Dermatologic History: Reports: None - Infectious Disease History Infectious Disease History: Reports: Chicken Pox, Measles, Mumps - Past Surgical History Head Surgeries/Procedures: Reports: None HEENT Surgical History: Reports: None Cardiovascular Surgical History: Reports: None Respiratory Surgical History: Reports: None GI Surgical History: Reports: EGD Male Surgical History: Reports: None Endocrine Surgical History: Reports: None Neurological Surgical History: Reports: None Musculoskeletal Surgical History: Reports: Arthroscopic Knee, Knee Replacement Oncologic Surgical History: Reports: None Dermatological Surgical History: Reports: None Social & Family History - Family History Family Medical History: Noncontributory - Tobacco Use Smoking Status *Q: Former Smoker Used Tobacco, but Quit: Yes Month/Year Tobacco Last Used: 2009 - Caffeine Use Caffeine Use: Reports: Coffee - Recreational Drug Use Recreational Drug Use: No - Living Situation & Occupation Living situation: Reports: Extended Care Facility ([facility]) Occupation: Retired (OR) H&P Review of Systems - Review of Systems: Review Of Systems: See Below General: Reports: Malaise, Fatigue. Denies: Fever, Chills HEENT: Reports: No Symptoms. Denies: Vertigo Pulmonary: Denies: Cough, Sputum Cardiovascular: Reports: Dyspnea on Exertion, Edema (peripheral edema). Denies : Chest Pain, Syncope Gastrointestinal: Reports: Abdominal Pain (epigastric burning), Black Stool, Nausea. Denies: Bloody Stool, Diarrhea, Hematemesis, Vomiting Genitourinary: Reports: No Symptoms. Denies: Dysuria, Frequency, Burning Musculoskeletal: Reports: No Symptoms Skin: Reports: No Symptoms Psychiatric: Reports: No Symptoms Neurological: Reports: No Symptoms Hematologic/Lymphatic: Reports: No Symptoms Immunologic: Reports: No Symptoms Exam - Exam Exam: See Below - Vital Signs Vital Signs: Last Vital Signs Temp 97.6 F 08/20/18 11:50 Pulse 87 08/20/18 14:05 Resp 18 08/20/18 14:05 BP 85/52 L 08/20/18 14:05 Pulse Ox 97 08/20/18 14:05 Weight: 300 kg - Exam Quality Assessment: Supplemental Oxygen General: Alert, Oriented, Cooperative HEENT: No: Mucosa Moist & Mcmullen (pale) Neck: Supple Lungs: Clear to Auscultation. No: Normal Respiratory Effort (dyspnea with exertion) Cardiovascular: Regular Rate, Irregular Rhythm. No: Systolic Murmur GI/Abdominal Exam: Normal Bowel Sounds, Soft, Tender (epigastric tenderness, obese abdomen hinders assessment) Back Exam: Normal Inspection, Full Range of Motion Extremities: Normal Inspection, Normal Range of Motion, Pedal Edema (+ pitting edema bilaterally) Neuro Extensive - Mental Status: Alert, Oriented x3, Normal Mood/Affect Neuro Extensive - Motor, Sensory, Reflexes: CN II-XII Intact Psychiatric: Alert, Normal Affect, Normal Mood - Patient Data Lab Results Last 24 hrs: Laboratory Results - last 24 hr 08/20/18 08/20/18 08/20/18 Range/Units 11:46 11:46 11:46 WBC 10.43 (4.0-11.0) K/uL RBC 2.04 L (4.50-5.90) M/uL Hgb 6.1 L (13.0-17.0) g/dL Hct 19.6 L (38.0-50.0) % MCV 96.1 (80.0-98.0) fL MCH 29.9 (27.0-32.0) pg MCHC 31.1 (31.0-37.0) g/dL RDW Std Deviation 54.1 (28.0-62.0) fl RDW Coeff of [place] 15 (11.0-15.0) % Plt Count 214 (150-400) K/uL MPV 9.10 (7.40-12.00) fL Neut % (Auto) 75.6 (48.0-80.0) % Lymph % (Auto) 17.0 (16.0-40.0) % [place] % (Auto) 5.6 (0.0-15.0) % Eos % (Auto) 1.6 (0.0-7.0) % Baso % (Auto) 0.2 (0.0-1.5) % Neut # (Auto) 7.9 H (1.4-5.7) K/uL Lymph # (Auto) 1.8 (0.6-2.4) K/uL [place] # (Auto) 0.6 (0.0-0.8) K/uL Eos # (Auto) 0.2 (0.0-0.7) K/uL Baso # (Auto) 0.0 (0.0-0.1) K/uL Nucleated RBC % 0.0 /100WBC Nucleated RBCs # 0 K/uL INR 1.02 Sodium 134 L (136-148) mmol/L Potassium 5.4 H (3.5-5.1) mmol/L Chloride 98 (98-107) mmol/L Carbon Dioxide 27.1 (21.0-32.0) mmol/L BUN 132 H (7.0-18.0) mg/dL Creatinine 3.3 H (0.8-1.3) mg/dL Est Cr Clr Drug Dosing 19.05 mL/min Estimated GFR (MDRD) 18.2 ml/min Glucose 105 (74-106) mg/dL Calcium 8.6 (8.5-10.1) mg/dL Total Bilirubin 0.3 (0.2-1.0) mg/dL AST 10 L (15-37) IU/L ALT 15 (14-63) IU/L Alkaline Phosphatase 47 (46-116) U/L Troponin I < 0.050 (0.000-0.056) ng/mL Total Protein 5.8 L (6.4-8.2) g/dL Albumin 3.0 L (3.4-5.0) g/dL Globulin 2.8 (2.6-4.0) g/dL Albumin/Globulin Ratio 1.1 (0.9-1.6) Blood Type Antibody Screen Crossmatch 08/20/18 Range/Units 11:56 WBC (4.0-11.0) K/uL RBC (4.50-5.90) M/uL Hgb (13.0-17.0) g/dL Hct (38.0-50.0) % MCV (80.0-98.0) fL MCH (27.0-32.0) pg MCHC (31.0-37.0) g/dL RDW Std Deviation (28.0-62.0) fl RDW Coeff of [place] (11.0-15.0) % Plt Count (150-400) K/uL MPV (7.40-12.00) fL Neut % (Auto) (48.0-80.0) % Lymph % (Auto) (16.0-40.0) % [place] % (Auto) (0.0-15.0) % Eos % (Auto) (0.0-7.0) % Baso % (Auto) (0.0-1.5) % Neut # (Auto) (1.4-5.7) K/uL Lymph # (Auto) (0.6-2.4) K/uL [place] # (Auto) (0.0-0.8) K/uL Eos # (Auto) (0.0-0.7) K/uL Baso # (Auto) (0.0-0.1) K/uL Nucleated RBC % /100WBC Nucleated RBCs # K/uL INR Sodium (136-148) mmol/L Potassium (3.5-5.1) mmol/L Chloride (98-107) mmol/L Carbon Dioxide (21.0-32.0) mmol/L BUN (7.0-18.0) mg/dL Creatinine (0.8-1.3) mg/dL Est Cr Clr Drug Dosing mL/min Estimated GFR (MDRD) ml/min Glucose (74-106) mg/dL Calcium (8.5-10.1) mg/dL Total Bilirubin (0.2-1.0) mg/dL AST (15-37) IU/L ALT (14-63) IU/L Alkaline Phosphatase (46-116) U/L Troponin I (0.000-0.056) ng/mL Total Protein (6.4-8.2) g/dL Albumin (3.4-5.0) g/dL Globulin (2.6-4.0) g/dL Albumin/Globulin Ratio (0.9-1.6) Blood Type O POSITIVE Antibody Screen NEGATIVE Crossmatch See Detail Result Diagrams: 08/20/18 11:46 08/20/18 11:46 *Q Meaningful Use (ADM) - VTE *Q VTE Pharmacological Contraindications *Q: Risk of Bleeding - Problem List (1) GI bleed SNOMED Code(s): 49626572 ICD Code: K92.2 - GASTROINTESTINAL HEMORRHAGE, UNSPECIFIED Status: Acute Current Visit: Yes (2) Generalized weakness SNOMED Code(s): 61124518 ICD Code: R53.1 - WEAKNESS Status: Acute Current Visit: No (3) Morbid obesity with BMI of 50.0-59.9, adult SNOMED Code(s): 987039165, 04829843862595 ICD Code: E66.01 - MORBID (SEVERE) OBESITY DUE TO EXCESS CALORIES; Z68.43 - BODY MASS INDEX (BMI) 50-59.9, ADULT Status: Chronic Current Visit: No (4) A-fib SNOMED Code(s): 84408173 ICD Code: I48.91 - UNSPECIFIED ATRIAL FIBRILLATION Status: Chronic Current Visit: No Qualifiers: Atrial fibrillation type: paroxysmal Qualified Code(s): I48.0 - Paroxysmal atrial fibrillation (5) CHF (congestive heart failure) SNOMED Code(s): 36193648 ICD Code: I50.9 - HEART FAILURE, UNSPECIFIED Status: Chronic Current Visit: No (6) CKD (chronic kidney disease) SNOMED Code(s): 392684171 ICD Code: N18.9 - CHRONIC KIDNEY DISEASE, UNSPECIFIED Status: Chronic Priority: High Current Visit: No Qualifiers: Chronic kidney disease stage: stage 3 (moderate) Qualified Code(s): N18.3 - Chronic kidney disease, stage 3 (moderate) (7) COPD (chronic obstructive pulmonary disease) SNOMED Code(s): 27448479 ICD Code: J44.9 - CHRONIC OBSTRUCTIVE PULMONARY DISEASE, UNSPECIFIED Status : Chronic Priority: High Current Visit: No Qualifiers: COPD type: COPD with acute lower respiratory infection Qualified Code(s): J44.0 - Chronic obstructive pulmonary disease with acute lower respiratory infection (8) DM type 2 (diabetes mellitus, type 2) SNOMED Code(s): 96548409 ICD Code: E11.9 - TYPE 2 DIABETES MELLITUS WITHOUT COMPLICATIONS Status: Chronic Current Visit: No Qualifiers: Diabetes mellitus termite treater helper insulin use: without termite treater helper use Diabetes mellitus complication status: without complication Qualified Code(s): E11.9 - Type 2 diabetes mellitus without complications (9) HTN (hypertension) SNOMED Code(s): 28498837 ICD Code: I10 - ESSENTIAL (PRIMARY) HYPERTENSION Status: Chronic Priority : High Current Visit: No Qualifiers: Hypertension type: essential hypertension Qualified Code(s): I10 - Essential (primary) hypertension (10) Oxygen dependent SNOMED Code(s): 064701175776 ICD Code: Z99.81 - DEPENDENCE ON SUPPLEMENTAL OXYGEN Status: Chronic Current Visit: No Problem List Initiated/Reviewed/Updated: Yes Orders Last 24hrs: Active Orders 24 hr Category Date Time Status Patient Status [ADT] Stat ADT 08/20/18 13:28 Active Blood Glucose Check, Bedside [RC] WITHMEALSANDBED Care 08/20/18 13:50 Active Cardiac Monitoring [RC] . DIRECTED Care 08/20/18 11:45 Active Cardiac Monitoring [RC] CONTINUOUS Care 08/20/18 13:50 Inactive Diabetes Education [RC] Click to Edit Care 08/20/18 13:51 Active Oxygen Therapy [RC] PRN Care 08/20/18 13:50 Active Telemetry Monitoring [Cardiac Monitoring] [RC] . Care 08/20/18 14:12 Active DIRECTED Up With Assistance [RC] ASDIRECTED Care 08/20/18 13:50 Active VTE/DVT Education [RC] PER UNIT ROUTINE Care 08/20/18 13:50 Active Vital Signs [RC] Q4H Care 08/20/18 13:50 Active [place] Citizen [employer] Diet [DIET] Diet 08/20/18 Dinner Active CBC WITH AUTO DIFF [HEME] AM Lab 08/21/18 05:11 Ordered COMPREHENSIVE METABOLIC PN,CMP [CHEM] AM Lab 08/21/18 05:11 Ordered RED BLOOD CELLS LP [BBK] Stat Lab 08/20/18 11:56 Results TYPE AND SCREEN [BBK] Stat Lab 08/20/18 11:56 Results UA RFX ELVIA AND CULT IF INDIC [URIN] Stat Lab 08/20/18 11:45 Ordered Acetaminophen [Tylenol] Med 08/20/18 13:50 Active 650 mg PO Q4H PRN Insulin Aspart [NovoLOG] Med 08/20/18 17:00 Active See Protocol SUBCUT TIDAC Pantoprazole [ProTONIX IV] Med 08/20/18 21:00 Active 40 mg IV Q12HR Polyethylene Glycol 3350 [MiraLAX] Med 08/20/18 13:50 Active 17 gm PO DAILY PRN Sodium Chloride 0.9% [Normal Saline] 500 ml Med 08/20/18 12:00 Active IV STAT Sodium Chloride 0.9% [Saline Flush] [facility] 08/20/18 11:46 Active 10 ml FLUSH ASDIRECTED PRN Sodium Chloride 0.9% [Saline Flush] [facility] 08/20/18 11:46 Active 2.5 ml FLUSH ASDIRECTED PRN Glucose Management Sub Q Reflex [OM.PC] Click To Edit [facility] 08/20/18 13:50 Ordered Saline Lock Insert [OM.PC] Stat [facility] 08/20/18 11:44 Ordered Transfuse Red Blood Cells [COMM] Stat [facility] 08/20/18 11:51 Ordered VTE Pharmacological Contraindications [AST] Per Unit [facility] 08/20/18 13:50 Ordered Routine Resuscitation Status Routine Resus Stat 08/20/18 13:50 Ordered Medication Orders Acetaminophen (Tylenol) 650 mg PO Q4H PRN PRN Reason: Pain (Mild 1-3)/fever Sodium Chloride (Normal Saline) 500 mls @ 999 mls/hr IV STAT BLANCA Last Admin: 08/20/18 12:25 Dose: 999 mls/hr Insulin Aspart (Novolog) 0 unit SUBCUT TIDAC BLANCA; Protocol Pantoprazole Sodium (Protonix Iv) 40 mg IV Q12HR BLANCA Polyethylene Glycol (Miralax) 17 gm PO DAILY PRN PRN Reason: Constipation Sodium Chloride (Saline Flush) 10 ml FLUSH ASDIRECTED PRN PRN Reason: Keep Vein Open Last Admin: 08/20/18 12:26 Dose: 10 ml Sodium Chloride (Saline Flush) 2.5 ml FLUSH ASDIRECTED PRN PRN Reason: Keep Vein Open Last Admin: 08/20/18 12:26 Dose: 2.5 ml Assessment/Plan Comment:: This 77 year old male admitted with GI bleeding 1. GI bleeding: Given 1 unit in ED. will hang another. Protonix 40 mg IV Q12hr. NPO for now. I attempted to call Dr Morrow regarding admission, she is unavailable today. I spoke with Dr Arora, General surgery, in [place]. He recommended patient to be transferred to have endoscopy more urgently due to continued GI bleeding. I spoke with Dr Ro in the ED, who has kindly accepted patient for transfer at this time. Giovani will be transferred to [facility] today via ground ambulance. I called Giovani's sister Daria, . She is aware of transfer to [place] to have more urgent endoscopy. <Gerard Nieto - Last Filed: 08/20/18 16:24> H&P History of Present Illness - General Admit Problem/Dx: Admission Diagnosis/Problem Admission Diagnosis/Problem Anemia I have seen and examined to patient independently of Joycelyn Dela Cruz CNP. I have discussed the case for care of this patient with her. I have reviewed and approve of the plan of care as outlined by her. Patient to be transferred. Please see orders. Exam - Vital Signs Vital Signs: Last Vital Signs Temp 36.7 C 08/20/18 15:41 Pulse 68 08/20/18 15:41 Resp 20 08/20/18 15:26 BP 99/53 L 08/20/18 15:41 Pulse Ox 99 08/20/18 15:26 - Patient Data Lab Results Last 24 hrs: Laboratory Results - last 24 hr 08/20/18 08/20/18 08/20/18 Range/Units 11:46 11:46 11:46 WBC 10.43 (4.0-11.0) K/uL RBC 2.04 L (4.50-5.90) M/uL Hgb 6.1 L (13.0-17.0) g/dL Hct 19.6 L (38.0-50.0) % MCV 96.1 (80.0-98.0) fL MCH 29.9 (27.0-32.0) pg MCHC 31.1 (31.0-37.0) g/dL RDW Std Deviation 54.1 (28.0-62.0) fl RDW Coeff of [place] 15 (11.0-15.0) % Plt Count 214 (150-400) K/uL MPV 9.10 (7.40-12.00) fL Neut % (Auto) 75.6 (48.0-80.0) % Lymph % (Auto) 17.0 (16.0-40.0) % [place] % (Auto) 5.6 (0.0-15.0) % Eos % (Auto) 1.6 (0.0-7.0) % Baso % (Auto) 0.2 (0.0-1.5) % Neut # (Auto) 7.9 H (1.4-5.7) K/uL Lymph # (Auto) 1.8 (0.6-2.4) K/uL [place] # (Auto) 0.6 (0.0-0.8) K/uL Eos # (Auto) 0.2 (0.0-0.7) K/uL Baso # (Auto) 0.0 (0.0-0.1) K/uL Nucleated RBC % 0.0 /100WBC Nucleated RBCs # 0 K/uL INR 1.02 Sodium 134 L (136-148) mmol/L Potassium 5.4 H (3.5-5.1) mmol/L Chloride 98 (98-107) mmol/L Carbon Dioxide 27.1 (21.0-32.0) mmol/L BUN 132 H (7.0-18.0) mg/dL Creatinine 3.3 H (0.8-1.3) mg/dL Est Cr Clr Drug Dosing 19.05 mL/min Estimated GFR (MDRD) 18.2 ml/min Glucose 105 (74-106) mg/dL Calcium 8.6 (8.5-10.1) mg/dL Total Bilirubin 0.3 (0.2-1.0) mg/dL AST 10 L (15-37) IU/L ALT 15 (14-63) IU/L Alkaline Phosphatase 47 (46-116) U/L Troponin I < 0.050 (0.000-0.056) ng/mL Total Protein 5.8 L (6.4-8.2) g/dL Albumin 3.0 L (3.4-5.0) g/dL Globulin 2.8 (2.6-4.0) g/dL Albumin/Globulin Ratio 1.1 (0.9-1.6) Urine Color Urine Appearance Urine pH (5.0-8.0) Ur Specific [place] (1.001-1.035) Urine Protein (NEGATIVE) mg/dL Urine Glucose (UA) (NEGATIVE) mg/dL Urine Ketones (NEGATIVE) mg/dL Urine Occult Blood (NEGATIVE) Urine Nitrite (NEGATIVE) Urine Bilirubin (NEGATIVE) Urine Urobilinogen (<2.0) EU/dL Ur Leukocyte Esterase (NEGATIVE) Blood Type Antibody Screen Crossmatch 08/20/18 08/20/18 Range/Units 11:56 15:00 WBC (4.0-11.0) K/uL RBC (4.50-5.90) M/uL Hgb (13.0-17.0) g/dL Hct (38.0-50.0) % MCV (80.0-98.0) fL MCH (27.0-32.0) pg MCHC (31.0-37.0) g/dL RDW Std Deviation (28.0-62.0) fl RDW Coeff of [place] (11.0-15.0) % Plt Count (150-400) K/uL MPV (7.40-12.00) fL Neut % (Auto) (48.0-80.0) % Lymph % (Auto) (16.0-40.0) % [place] % (Auto) (0.0-15.0) % Eos % (Auto) (0.0-7.0) % Baso % (Auto) (0.0-1.5) % Neut # (Auto) (1.4-5.7) K/uL Lymph # (Auto) (0.6-2.4) K/uL [place] # (Auto) (0.0-0.8) K/uL Eos # (Auto) (0.0-0.7) K/uL Baso # (Auto) (0.0-0.1) K/uL Nucleated RBC % /100WBC Nucleated RBCs # K/uL INR Sodium (136-148) mmol/L Potassium (3.5-5.1) mmol/L Chloride (98-107) mmol/L Carbon Dioxide (21.0-32.0) mmol/L BUN (7.0-18.0) mg/dL Creatinine (0.8-1.3) mg/dL Est Cr Clr Drug Dosing mL/min Estimated GFR (MDRD) ml/min Glucose (74-106) mg/dL Calcium (8.5-10.1) mg/dL Total Bilirubin (0.2-1.0) mg/dL AST (15-37) IU/L ALT (14-63) IU/L Alkaline Phosphatase (46-116) U/L Troponin I (0.000-0.056) ng/mL Total Protein (6.4-8.2) g/dL Albumin (3.4-5.0) g/dL Globulin (2.6-4.0) g/dL Albumin/Globulin Ratio (0.9-1.6) Urine Color YELLOW Urine Appearance CLEAR Urine pH 5.5 (5.0-8.0) Ur Specific [place] 1.010 (1.001-1.035) Urine Protein NEGATIVE (NEGATIVE) mg/dL Urine Glucose (UA) NEGATIVE (NEGATIVE) mg/dL Urine Ketones NEGATIVE (NEGATIVE) mg/dL Urine Occult Blood NEGATIVE (NEGATIVE) Urine Nitrite NEGATIVE (NEGATIVE) Urine Bilirubin NEGATIVE (NEGATIVE) Urine Urobilinogen 0.2 (<2.0) EU/dL Ur Leukocyte Esterase NEGATIVE (NEGATIVE) Blood Type O POSITIVE Antibody Screen NEGATIVE Crossmatch See Detail Result Diagrams: 08/20/18 11:46 08/20/18 11:46 Orders Last 24hrs: Active Orders 24 hr Category Date Time Status Patient Status [ADT] Stat ADT 08/20/18 13:28 Active Blood Glucose Check, Bedside [RC] WITHMEALSANDBED Care 08/20/18 13:50 Active Cardiac Monitoring [RC] . DIRECTED Care 08/20/18 11:45 Active Cardiac Monitoring [RC] CONTINUOUS Care 08/20/18 13:50 Inactive Diabetes Education [RC] Click to Edit Care 08/20/18 13:51 Active Oxygen Therapy [RC] PRN Care 08/20/18 13:50 Active Ready for Discharge [RC] PER UNIT ROUTINE Care 08/20/18 15:23 Active Engineering Officer Discontinue [Cardiac Monitoring Care 08/20/18 15:23 Active Discontinue] [RC] Click to Edit Telemetry Monitoring [Cardiac Monitoring] [RC] . Care 08/20/18 14:12 Active DIRECTED Up With Assistance [RC] ASDIRECTED Care 08/20/18 13:50 Active VTE/DVT Education [RC] PER UNIT ROUTINE Care 08/20/18 13:50 Active Vital Signs [RC] Q4H Care 08/20/18 13:50 Active NPO Now [Nothing per Oral Now Diet] [DIET] Diet 08/20/18 Dinner Active CBC WITH AUTO DIFF [HEME] AM Lab 08/21/18 05:11 Ordered COMPREHENSIVE METABOLIC PN,CMP [CHEM] AM Lab 08/21/18 05:11 Ordered RED BLOOD CELLS LP [BBK] Stat Lab 08/20/18 11:56 Results TYPE AND SCREEN [BBK] Stat Lab 08/20/18 11:56 Results Acetaminophen [Tylenol] Med 08/20/18 13:50 Active 650 mg PO Q4H PRN Insulin Aspart [NovoLOG] Med 08/20/18 17:00 Active See Protocol SUBCUT TIDAC Pantoprazole [ProTONIX IV] Med 08/20/18 21:00 Active 40 mg IV Q12HR Polyethylene Glycol 3350 [MiraLAX] Med 08/20/18 13:50 Active 17 gm PO DAILY PRN Sodium Chloride 0.9% [Saline Flush] Med 08/20/18 11:46 Active 10 ml FLUSH ASDIRECTED PRN Sodium Chloride 0.9% [Saline Flush] Med 08/20/18 11:46 Active 2.5 ml FLUSH ASDIRECTED PRN Glucose Management Sub Q Reflex [OM.PC] Click To Edit Ot 08/20/18 13:50 Ordered Saline Lock Insert [OM.PC] Stat Oth 08/20/18 11:44 Ordered Transfuse Red Blood Cells [COMM] Stat Ot 08/20/18 11:51 Ordered VTE Pharmacological Contraindications [AST] Per Unit Oth 08/20/18 13:50 Ordered Routine Resuscitation Status Routine Resus Stat 08/20/18 13:50 Ordered Medication Orders Acetaminophen (Tylenol) 650 mg PO Q4H PRN PRN Reason: Pain (Mild 1-3)/fever Insulin Aspart (Novolog) 0 unit SUBCUT TIDAC BLANCA; Protocol Pantoprazole Sodium (Protonix Iv) 40 mg IV Q12HR BLANCA Polyethylene Glycol (Miralax) 17 gm PO DAILY PRN PRN Reason: Constipation Sodium Chloride (Saline Flush) 10 ml FLUSH ASDIRECTED PRN PRN Reason: Keep Vein Open Last Admin: 08/20/18 12:26 Dose: 10 ml Sodium Chloride (Saline Flush) 2.5 ml FLUSH ASDIRECTED PRN PRN Reason: Keep Vein Open Last Admin: 08/20/18 12:26 Dose: 2.5 ml
[2018-08-20] MEDS ORDERED: Insulin Aspart 100 Units/ML 3 ML Pen SUBCUT SCH (17:00)
[2018-08-20] MEDS ORDERED: Pantoprazole 40 MG Vial IV SCH (21:00)
[2018-08-20 23:17] VITALS: BP 92/55
== END 2018-08-20 22:45 | DRG 378 ==
LOC: MW.ED 11:29 → MW.MS 14:14
PROVIDERS: ADMIT Internal Medicine; ATTEND Internal Medicine
PROC: 30233N1 Transfusion of Nonautologous Red Blood Cells into Peripheral Vein, Percutaneous Approach (ICD-10-PCS; principal; 2018-08-20)
DX: K92.2 Gastrointestinal hemorrhage, unspecified (principal); I13.0 Hypertensive heart and chronic kidney disease with heart failure and stage 1 through stage 4 chronic kidney disease, or unspecified chronic kidney disease; Z68.43 Body mass index [BMI] 50.0-59.9, adult; D50.0 Iron deficiency anemia secondary to blood loss (chronic); J44.9 Chronic obstructive pulmonary disease, unspecified; I48.91 Unspecified atrial fibrillation; E11.22 Type 2 diabetes mellitus with diabetic chronic kidney disease; M19.91 Primary osteoarthritis, unspecified site; H54.7 Unspecified visual loss; I50.9 Heart failure, unspecified; E78.00 Pure hypercholesterolemia, unspecified; E66.01 Morbid (severe) obesity due to excess calories; N18.3 Chronic kidney disease, stage 3 (moderate); K21.9 Gastro-esophageal reflux disease without esophagitis; M54.9 Dorsalgia, unspecified; G89.29 Other chronic pain; H91.90 Unspecified hearing loss, unspecified ear; I25.2 Old myocardial infarction; I11.0 Hypertensive heart disease with heart failure; Z96.659 Presence of unspecified artificial knee joint; R06.02 Shortness of breath; Z86.711 Personal history of pulmonary embolism; Z66 Do not resuscitate; Z99.81 Dependence on supplemental oxygen; Z87.891 Personal history of nicotine dependence; Z88.5 Allergy status to narcotic agent; M19.90 Unspecified osteoarthritis, unspecified site; Z87.442 Personal history of urinary calculi; Z79.82 Long term (current) use of aspirin; M25.562 Pain in left knee; M25.561 Pain in right knee; R60.0 Localized edema; E11.9 Type 2 diabetes mellitus without complications; E66.9 Obesity, unspecified; Z79.4 Long term (current) use of insulin; Z79.899 Other long term (current) drug therapy
CPT/HCPCS: 36415; 36430; 71045; 80053; 84484; 85025; 85610; 86850; 86900; 86901; 86920; 86921; 86922; 93005; 96360; 96361; 99285; C9113; J7040; P9016; 81003; 82962; A9270-GY